=== PATIENT | female | born 1995 | race Caucasian/White ===

== ENCOUNTER 2017-05-15 09:53 | Emergency (ER) | payer OTHER, MEDICAID, SELFPAY ==
[2017-05-15 09:54] VITALS: BP 143/123; PULSE 136; RESP 18; TEMP 38.5; O2SAT 92; BMI 40.1
--- NOTE | 2017-05-15 10:24 | ED.DCSUM_ITS ---
- ER Visit Summary Date of Service: 05/15/17 Chief Complaint: Sore throat and fever History of Present Illness: The patient is a 22 F past medical history of hypertension but is not taking her medications for the last several weeks. Patient states she has had sore throat, fever and cough since yesterday. Denies diarrhea has had a little vomiting. No dysuria. Is able to swallow. Denies drooling. No severe headache or neck pain. Mild nonproductive cough. Physical Examination: Young female no acute distress. Vital signs stable blood pressure 143 or 123 again she is not compliant with her blood pressure meds which I warned her against. Fever 101.3 heart rate 136. Pulse ox 90% on room air no signs of hypoxia. HEENT exam TMs normal. Posterior pharynx erythematous. No exudate nor any peritonsillar abscess. Able to swallow no drooling. Neck nontender no meningismus. No lymphadenopathy. No tracheal tenderness. Lungs dry cough no rales rhonchi or wheezing. Heart tachycardic no murmur. Abdomen obese but soft. Moving all 4 extremities. Skin unremarkable. Back unremarkable. Neurologic exam normal. Test Results: Chest x-ray shows recent left prior to this being done. Emergency Department Course and Treatment: Patient treated with Tylenol and we obtained a rapid strep test and chest x-ray. Treatment Plan: Patient walked out of the ER shortly after arrival. Point of the nurses family states she is bipolar and been off her medications. She left prior to evaluation being completed or ever testing being done. Disposition: Discharge Impression: Viral syndrome with fever Left prior to being discharged or evaluation being completed Medical noncompliance of both her blood pressure and bipolar medications. This note was generated with [employer] dictation software. It may contain incorrect words, spelling, and punctuation that were not noted in review of the chart prior to signing ED Disposition - Plan for ED Patient: Disposition: Home or Assisted Living Chief Complaint: Sore Throat Referrals: Alejandra Waite MD [Primary Care Provider] -
--- NOTE | 2017-05-15 10:36 | ED.RN ---
1027-This RN into room to medicate patient as ordered. Patient very agitated and walked out of room yelling I am not staying here, I am going to [place]! Proceeded to walk out of department with brisk and steady gait in no distress. Parents stated She is bipolar. Comforted parents and let them know they can bring her back for treatment at any time.
--- NOTE | 2017-05-15 10:39 | ED.RN ---
1015-Patient states I am supposed to be on meds but have been off them x 2-3 weeks.
== END 2017-05-15 10:30 | disposition home or self-care (01) ==
LOC: ED 10:31
PROVIDERS: Emergency Provider Emergency Medicine; Family Provider Internal Medicine; PCP Internal Medicine
DX: B34.9 Viral infection, unspecified (principal); R50.9 Fever, unspecified; I10 Essential (primary) hypertension; Z91.19 Patient's noncompliance with other medical treatment and regimen; Z72.0 Tobacco use
CPT/HCPCS: 99281

== ENCOUNTER 2017-06-03 01:00 | Emergency (ER) | payer OTHER, MEDICAID, SELFPAY ==
[2017-06-03 01:02] VITALS: BP 177/129; PULSE 93; RESP 18; TEMP 37.1; O2SAT 98; BMI 35.4
--- NOTE | 2017-06-03 01:54 | ED.VISSUMM ---
- ER Visit Summary Date of Service: 06/03/17 Chief Complaint: Dental pain History of Present Illness: The patient is a 22 F presenting with dental pain. This has been ongoing since yesterday. She has an appointment tomorrow to have her tooth pulled. She has been taking ibuprofen, Tylenol, naproxen at home. She denies fever or swelling. Denies other complaints. Physical Examination: Vitals are stable. Patient is afebrile. Alert no acute distress. HEENT exam is left lower molar tenderness, no surrounding fluctuance, no sublingual edema Neck is supple. Lungs are clear and equal bilaterally. Heart is regular rate and rhythm. Skin is warm and dry. Remainder of exam is unremarkable. Emergency Department Course and Treatment: Patient was given OxyIR ?1. She has an appointment tomorrow morning to have her tooth pulled. There is no sign of infection on exam. She will follow-up at scheduled dental appointment tomorrow. Blood pressure is elevated. Repeat BP is improved. She is advised to take her BP med this morning and follow up with her PCP for blood pressure recheck. Advised return ED if worsening complaints. Disposition: Discharge home Impression: Odontalgia This note was generated with [employer] dictation software. It may contain incorrect words, spelling, and punctuation that were not noted in review of the chart prior to signing ED Disposition - Plan for ED Patient: Chief Complaint: Dental Instructions: ED Tooth Pain Referrals: Alejandra Waite MD [Primary Care Provider] -
--- NOTE | 2017-06-03 01:56 | ED.DEP ---
ED Disposition - Plan for ED Patient: Chief Complaint: Dental Instructions: ED Tooth Pain Referrals: Alejandra Waite MD [Primary Care Provider] -
[2017-06-03] MEDS: oxyCODONE 5 MG Tablet PO (02:16)
[2017-06-03 02:34] VITALS: BP 156/117
[2017-06-03] MEDS: Ondansetron ODT 4 MG Tablet PO (03:00)
[2017-06-03 03:21] VITALS: BP 131/96; PULSE 99; RESP 30; O2SAT 98
== END 2017-06-03 03:22 | disposition home or self-care (01) ==
LOC: ED 01:30
PROVIDERS: Emergency Provider Emergency Medicine; Family Provider Internal Medicine; PCP Internal Medicine
DX: K08.89 Other specified disorders of teeth and supporting structures (principal); I10 Essential (primary) hypertension; Z72.0 Tobacco use
CPT/HCPCS: 99282

== ENCOUNTER 2017-08-02 01:26 | Emergency (ER) | payer OTHER, MEDICAID, SELFPAY ==
[2017-08-02 01:21] VITALS: BP 156/94; PULSE 141; RESP 22; TEMP 36.6; O2SAT 97; BMI 42.4
--- NOTE | 2017-08-02 01:24 | NURSING ---
PT WRITHING, RESTLESS C/O PAIN IN RLE FOR 2 DAYS, WORSENING FOR THE LAST 12 HOURS. STATES NO INJURY. PT TOOK BENZTORPINE AT HOME, BUT STATES SHE DOESN'T KNOW WHY SHE HAS IT OR WHO PRESCRIBED IT.
--- NOTE | 2017-08-02 02:58 | ED.DCSUM_ITS ---
- ER Visit Summary Date of Service: 08/02/17 Chief Complaint: Right lower extremity pain History of Present Illness: The patient is a 22 F 3 of hypertension and bipolar disorder. Patient states that she has right lower extremity pain today after walking. She denies any falls or trauma. She denies any coolness or loss of sensation. She has never had any leg surgery. She denies any recent travel, hospitalization or immobilization. She has never had a DVT or PE. Physical Examination: Well-appearing young female. Vital signs are stable afebrile. She is tachycardic but she is very anxious. H EENT exam unremarkable. Neck nontender. Lungs clear to auscultation bilaterally. Heart tachycardic rate about 110 on my exam. No murmur. Abdomen soft nontender nondistended no giving or masses. Normal bowel sounds no peritoneal signs. No pulsatile mass. She is moving all 4 extremities. Neurovascular intact. Specifically right hip, knee and ankle are nontender nonswollen. She complains of pain in her right lower leg but is not swollen or red. Legs are equal size as are her calves. She has equal symmetrical DP pulses. Has normal cap refill. The right foot is neurovascularly intact she is able to wiggle her toes. And has normal touch sensation. Test Results: None Emergency Department Course and Treatment: Patient be treated with Motrin and discharged home. I will have the nurses get a Doppler DP pulse in her right foot. Clinically I can palpate one. Later this is not a vascular event. This is not a DVT. There is been no trauma nor bony deformity. There is no signs of infection. There is no signs of compartment syndrome. Treatment Plan: Tylenol and Motrin for pain. Disposition: Discharge Impression: Right lower extremity pain secondary to musculoskeletal etiology. This note was generated with [employer] dictation software. It may contain incorrect words, spelling, and punctuation that were not noted in review of the chart prior to signing ED Disposition - Plan for ED Patient: Chief Complaint: Lower Extremity Injury Referrals: Alejandra Waite MD [Primary Care Provider] -
--- NOTE | 2017-08-02 02:58 | ED.DEP ---
ED Disposition - Plan for ED Patient: Disposition: Home or Assisted Living Chief Complaint: Lower Extremity Injury Instructions: ED Strain Muscle Ext Referrals: Alejandra Waite MD [Primary Care Provider] - 3-5 Days if not improving Additional Instructions: Tylenol and Motrin for pain. Ice to the lower leg for decreasing inflammation and pain. Hot shower warm bath to relax the muscles.
[2017-08-02] MEDS: Ibuprofen 400 MG Tablet 800 MG PO (03:04)
--- NOTE | 2017-08-02 03:05 | ED.RN ---
STRONG PEDAL PULSES FOUND WITH DOPPLER, PT TOLERATED WELL.
--- NOTE | 2017-08-02 03:06 | NURSING ---
GOOD PEDAL PULSES FOUND IN EXTREMITY, CONFIRMED BY DOPPLER.
[2017-08-02 03:16] VITALS: RESP 20
--- NOTE | 2017-08-02 03:17 | NURSING ---
pt called lindy who was getting a taxi to come and get her. security keeping an on the pt.
== END 2017-08-02 03:16 | disposition home or self-care (01) ==
PROVIDERS: Emergency Provider Emergency Medicine; Family Provider Internal Medicine; PCP Internal Medicine
DX: M79.604 Pain in right leg (principal); I10 Essential (primary) hypertension; Z72.0 Tobacco use
CPT/HCPCS: 99284

== ENCOUNTER 2017-08-03 02:53 | Emergency (ER) | payer OTHER, MEDICAID, SELFPAY ==
[2017-08-03 02:55] VITALS: BP 113/83; PULSE 131; RESP 17; TEMP 36.8; O2SAT 95; BMI 42.0
--- NOTE | 2017-08-03 03:14 | RAD_ITS ---
STUDY: X-RAY - RIGHT ANKLE REASON FOR EXAM: Female, 22 years old. Pain TECHNIQUE: 3 view(s) of the ankle. COMPARISON: None. FINDINGS: The tibia and fibula are intact. The talus and calcaneus are intact. There are NO fractures. There is slight widening of the medial aspect of the ankle mortise with medial soft tissue swelling. Deltoid ligament injury not excluded. RAD/Ankle min 3 Views IMPRESSION: There are NO fractures. There is slight widening of the medial aspect of the ankle mortise with medial soft tissue swelling. Deltoid ligament injury not excluded Electronically Signed: Isidoro Wells MD at 3:47 EDT , Service support ,
--- NOTE | 2017-08-03 03:15 | ED.VISSUMM ---
- ER Visit Summary Date of Service: 08/03/17 Chief Complaint: [] Right ankle pain History of Present Illness: The patient is a 22 F [] history of untreated bipolar disease and hypertension presenting with right lower extremity pain for the past several days. She was seen yesterday in this emergency department and treated clinically with NSAIDs. No diagnostic or laboratory testing was obtained. Patient reportedly has had no trauma or increase in physical activity. No changes in the history from the previous evaluation. Reports mild improvement with NSAIDs for 1-2 hours. Physical Examination: [] Afebrile, vital signs heart rate of 131 with remainder of the vital signs unremarkable. Morbidly obese 22-year-old female exhibiting some bizarre psychiatric involuntary movements. Patient is in no acute distress. Cardiovascular exam is regular rate and rhythm. Lungs are clear to auscultation. Examination of the lower extremity on the right reveals tenderness palpation with minor touch of the skin. No gross deformity or swelling. There is a symmetric appearing lower extremities from the knees down. No rash. Test Results: [] Right ankle x-rays: Negative per my interpretation. Emergency Department Course and Treatment: [] Patient given 800 mg orally of ibuprofen. X-rays negative. Patient provided Aircast and crutches with instructions on use. Patient was given a prescription for ibuprofen. Encouraged ice and rest. Follow-up with orthopedic surgeon. Treatment Plan: [] As above. Disposition: [] Discharge, stable. Impression: [] Right ankle sprain This note was generated with [employer] dictation software. It may contain incorrect words, spelling, and punctuation that were not noted in review of the chart prior to signing ED Disposition - Plan for ED Patient: Chief Complaint: Lower Extremity Injury Referrals: Alejandra Waite MD [Primary Care Provider] -
[2017-08-03] MEDS: Ibuprofen 400 MG Tablet 800 MG PO (03:26)
--- NOTE | 2017-08-03 04:06 | ED.DEP ---
ED Disposition - Plan for ED Patient: Disposition: Home or Assisted Living Chief Complaint: Lower Extremity Injury Instructions: ED Sprain Ankle W X Ray Prescriptions: Ibuprofen 800 mg PO TID PRN PRN #30 tab PRN Reason: Pain Referrals: Alejandra Waite MD [Primary Care Provider] -
[2017-08-03 04:40] VITALS: PULSE 127; RESP 18; O2SAT 100
== END 2017-08-03 04:41 | disposition home or self-care (01) ==
PROVIDERS: Emergency Provider Emergency Medicine; Family Provider Internal Medicine; PCP Internal Medicine
DX: S93.401A Sprain of unspecified ligament of right ankle, initial encounter (principal); X58.XXXA Exposure to other specified factors, initial encounter; Y93.9 Activity, unspecified; Y92.9 Unspecified place or not applicable; Y99.9 Unspecified external cause status; I10 Essential (primary) hypertension
CPT/HCPCS: 73610; 99285

== ENCOUNTER 2017-08-27 11:55 | Emergency (ER) | payer OTHER, MEDICAID, SELFPAY ==
[2017-08-27] VITALS (7 sets, daily range): BP systolic 130–150; BP diastolic 88–113; PULSE 64–92; RESP 14–18; TEMP 37; O2SAT 97–98; BMI 41.1
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
[2017-08-27] MEDS: LORazepam 1 MG Tablet PO (12:10)
[2017-08-27 12:37] LABS: Absolute Lymphocyte Count 3.38 X10^3/ul (0.83-4.51); Absolute Neutrophil Count 9.2 X10^3/uL (2.0-7.7); Basophil# 0.03 X10^3/uL; Basophil% 0.2 % (0-1); Eosinophil# 0.07 X10^3/uL; Eosinophils% 0.5 % (0-5); Hematocrit 38.1 % (37-47); Hemoglobin 12.2 g/dl (12.0-15.0); Lymphocyte # 3.38 X10^3/ul (4.0); Lymphocyte % 23.7 % (19-41); Mean Corpuscular Hgb 28.6 pg (27.0-32.0); Mean Corpuscular Volume 89.2 fL (81-99); Mean Platelet Vol. 10.4 fl (6.2-12.0); Monocyte# 1.51 X10^3/uL; Monocyte% 10.6 % (0-10); Neutrophil # 9.23 X10^3/uL (2.7-7.7); Neutrophil % 64.6 % (47-70); Platelet Count 333 K/mm3 (150-450); RBC Distribution Width CV 13.7 % (11.6-14.6); RBC Distribution Width SD 44.6 fl (35.1-43.9); Red Blood Count 4.27 M/mm3 (4.2-5.4); White Blood Count 14.3 K/mm3 (4.4-11.0)
[2017-08-27 12:39] LABS: Differential Indicated SCAN CRITERIA MET; POSITIVE COUNT NO; POSITIVE DIFFERENTIAL YES; POSITIVE MORPHOLOGY NO
[2017-08-27 12:41] LABS: Anion Gap 8 (5-15); BUN 15 mg/dL (7-18); BUN/Creat Ratio 18.3 RATIO (10-20); Calcium,Total 8.3 mg/dL (8.5-10.1); Chloride 106 mmol/L (98-107); Creatinine, Serum 0.82 mg/dL (0.55-1.02); EST Glomerular Filtration Rate 93 mL/min (>60); Est Glom Filt Rate - Afr Amer 113 mL/min (>60); Estimated Creatinine Clearance 89.77 ml/min; Glucose 113 mg/dL (74-106); Potassium 3.3 mmol/L (3.5-5.1); Sodium Level 142 mmol/L (136-145)
[2017-08-27 12:47] LABS: Amphetamine Urine VISTA NEGATIVE (<1000 ng/mL); Barbiturate Urine VISTA NEGATIVE (< 200 ng/mL); Benzodiazepine Urine VISTA NEGATIVE (< 200 ng/mL); Cocaine Urine VISTA NEGATIVE (< 300 ng/mL); Ecstacy Urine VISTA NEGATIVE (< 500 ng/mL); Methadone Urine VISTA NEGATIVE (< 300 ng/mL); PCP Urine VISTA NEGATIVE (< 25 ng/mL); Pregnancy, Serum, hCG Quali. NEGATIVE Negative (0-9 Nonpreg); THC Urine VISTA POSITIVE (< 50 ng/mL); Vista UDS pH Range 6
--- NOTE | 2017-08-27 12:58 | ED.RN ---
CRISIS IS AWARE PT NEEDS TO BE EVALUATED
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
--- NOTE | 2017-08-27 17:53 | CASEMGMT ---
Social Work Note Introduced self and role to pt. Pt placed phone down, maintains eye contact and participates appropriately in conversation. Appears to be in no distress as evidenced by smiling at SW throughout conversation and denying discomfort. Pt denies intent/plan to harm self in the ED. Identifies mother as support and claims she will be returning with food. Offer support and pt denies further needs. Inform that crisis has been notified of location change, and pt expresses understanding. Harriett Marsh, TAX AGENT, HELP DESK INTERNSHIP
--- NOTE | 2017-08-27 18:06 | CASEMGMT ---
Social Work Note Pt's mother present in room with pt. RN, Davon, notified. Harriett Marsh, SALES DEVELOPMENT DIRECTOR, GREEN ENERGY MARKETING ANALYST
[2017-08-28 00:21] VITALS: BP 144/88; PULSE 71; RESP 18; O2SAT 96
--- NOTE | 2017-08-28 00:23 | ED.RN ---
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
[2017-08-28 00:58] VITALS: BP 144/78; PULSE 71; RESP 16; TEMP 37; O2SAT 96
[2017-08-28 12:10] LABS: Pathologist Review Reviewed
== END 2017-08-28 01:01 ==
PROVIDERS: Emergency Provider Emergency Medicine; Family Provider Internal Medicine; PCP Internal Medicine
DX: R45.851 Suicidal ideations (principal); F31.9 Bipolar disorder, unspecified; F41.9 Anxiety disorder, unspecified
CPT/HCPCS: 36415; 80048; 80307; 80320; 84703; 85025; 99284; G0480

== ENCOUNTER 2017-10-05 05:41 | Emergency (ER) | payer OTHER, MEDICAID, SELFPAY ==
[2017-10-05 05:42] VITALS: BP 144/81; PULSE 122; RESP 18; TEMP 36.9; O2SAT 96; BMI 38.2
[2017-10-05 05:45] VITALS: BP 128/72
--- NOTE | 2017-10-05 05:56 | ED.VISSUMM ---
- ER Visit Summary Date of Service: 10/05/17 Chief Complaint: [Discomfort and drainage right eye] History of Present Illness: The patient is a 22 F [presents to the emergency department with discomfort of the right eye that is mild. Patient states she has had it for about 3 days. Patient's had drainage from the right eye. She denies any fever. Patient states that she had a mild cough that developed yesterday and lost her voice for a short time. Patient denies any fevers. She denies any trauma to the right eye.] Physical Examination: HEENT-PERRLA, EOMI. Cranial nerves II through XII grossly intact. TMs clear. Mucous membranes moist. No adenopathy. Patient has faint conjunctival erythema of the right eye with some purulent drainage noted. Cardiovascular-regular rate and rhythm without murmur or ectopy Lungs-clear to auscultation, chest wall stable without crepitus or subcu emphysema Abdomen-normoactive bowel sounds, soft, nontender, no rebound or rigidity, no peritoneal signs. Extremities-intact ?4, normal range of motion, normal pulses, atraumatic] Test Results: [None indicated] Emergency Department Course and Treatment: [Patient will be started on gentamicin ophthalmic drops.] Treatment Plan: [Patient to follow-up with Dr. Jesse Dickson who is on for ophthalmology within the next 3-5 days.] Disposition: [Discharged to home in stable condition] Impression: [Conjunctivitis right eye] This note was generated with [employer] dictation software. It may contain incorrect words, spelling, and punctuation that were not noted in review of the chart prior to signing ED Disposition - Plan for ED Patient: Chief Complaint: Eye Problem Referrals: Care Physician,No Primary [Primary Care Provider] -
--- NOTE | 2017-10-05 05:58 | ED.DEP ---
ED Disposition - Plan for ED Patient: Chief Complaint: Eye Problem Instructions: ED Conjunctivitis Bacterial Referrals: Care Physician,No Primary [Primary Care Provider] - Jesse Dickson MD [STAFF PHYSICIAN] - 3-5 Days
[2017-10-05] MEDS: Gentamicin Sulfate 1 OPTH.BTL 2 DRP RIGHT EYE (06:14)
[2017-10-05 06:17] VITALS: RESP 16
== END 2017-10-05 06:18 | disposition home or self-care (01) ==
LOC: ED 06:09
PROVIDERS: Emergency Provider Emergency Medicine
DX: H10.9 Unspecified conjunctivitis (principal); R05 Cough; I10 Essential (primary) hypertension; Z72.0 Tobacco use
CPT/HCPCS: 99283

== ENCOUNTER 2017-12-25 10:25 | Emergency (ER) | payer OTHER, MEDICAID, SELFPAY ==
[2017-12-25] VITALS (8 sets, daily range): BP systolic 118–136; BP diastolic 70–102; PULSE 85–103; RESP 14–16; TEMP 36.9; O2SAT 97–99; BMI 36.9
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
[2017-12-25 11:27] LABS: Absolute Lymphocyte Count 2.79 X10^3/ul (0.83-4.51); Absolute Neutrophil Count 5.1 X10^3/uL (2.0-7.7); Basophil# 0.08 X10^3/uL; Basophil% 0.8 % (0-1); Eosinophil# 0.69 X10^3/uL; Eosinophils% 7.3 % (0-5); Hematocrit 38.7 % (37-47); Hemoglobin 12.9 g/dl (12.0-15.0); Lymphocyte # 2.79 X10^3/ul (4.0); Lymphocyte % 29.6 % (19-41); Mean Corp Hgb Conc 33.3 g/gl (32-36); Mean Corpuscular Hgb 29.8 pg (27.0-32.0); Mean Corpuscular Volume 89.4 fL (81-99); Mean Platelet Vol. 9.8 fl (6.2-12.0); Monocyte# 0.74 X10^3/uL; Monocyte% 7.8 % (0-10); Neutrophil # 5.12 X10^3/uL (2.7-7.7); Neutrophil % 54.3 % (47-70); Platelet Count 317 K/mm3 (150-450); RBC Distribution Width CV 13.3 % (11.6-14.6); Red Blood Count 4.33 M/mm3 (4.2-5.4); White Blood Count 9.4 K/mm3 (4.4-11.0)
[2017-12-25 11:28] LABS: POSITIVE COUNT NO; POSITIVE DIFFERENTIAL NO; POSITIVE MORPHOLOGY NO
[2017-12-25 11:37] LABS: Anion Gap 7 (5-15); BUN 11 mg/dL (7-18); BUN/Creat Ratio 12.7 RATIO (10-20); Calcium,Total 8.5 mg/dL (8.5-10.1); Chloride 106 mmol/L (98-107); Creatinine, Serum 0.86 mg/dL (0.55-1.02); EST Glomerular Filtration Rate 87 mL/min (>60); Est Glom Filt Rate - Afr Amer 106 mL/min (>60); Glucose 86 mg/dL (74-106); Potassium 3.7 mmol/L (3.5-5.1); Sodium Level 142 mmol/L (136-145)
[2017-12-25 11:39] LABS: Amphetamine Urine VISTA POSITIVE (<1000 ng/mL); Barbiturate Urine VISTA NEGATIVE (< 200 ng/mL); Benzodiazepine Urine VISTA NEGATIVE (< 200 ng/mL); Cocaine Urine VISTA NEGATIVE (< 300 ng/mL); Ecstacy Urine VISTA NEGATIVE (< 500 ng/mL); Methadone Urine VISTA NEGATIVE (< 300 ng/mL); PCP Urine VISTA NEGATIVE (< 25 ng/mL); THC Urine VISTA POSITIVE (< 50 ng/mL); Vista UDS pH Range 5
[2017-12-25 11:43] LABS: Pregnancy, Serum, hCG Quali. NEGATIVE Negative (0-9 Nonpreg)
[2017-12-25 11:56] LABS: Alcohol, Blood (Medical)-Serum < 3.0 mg/dL
--- NOTE | 2017-12-25 12:21 | PCA ---
PT [facility]AR[facility]SEL[facility] NOTIFIED
--- NOTE | 2017-12-25 13:57 | NURSING ---
HAYLEE, CRISIS, HERE
--- NOTE | 2017-12-25 15:38 | ED.RN ---
SITTER AT BEDSIDE, PT REQUESTS TO GO TO THE BATHROOM, SITTER WALKS PT TO BATHROOM AND PT WALKS THE OTHER WAY AND RUNS OUT THE ED DOORS. SECURITY AND HRO NOTIFIED. PT BROUGHT BACK INSIDE WITH HRO ABOUT 5 MINUTES LATER. PT VERY TEARFUL AND FRUSTRATED. PT AGREES TO STAY AND NOT BE RESTRAINED. PINK SLIPPED RE-EXPLAINED. PT BACK IN ROOM AND COOPERATIVE. MEAL TRAY ORDERED AND BROUGHT TO BEDSIDE. SITTER REMAINS AT BEDSIDE.
== END 2017-12-25 19:53 ==
LOC: ED 10:52
PROVIDERS: Emergency Provider Emergency Medicine
DX: T14.91XA Suicide attempt, initial encounter (principal); Y93.9 Activity, unspecified; Y92.410 Unspecified street and highway as the place of occurrence of the external cause; Y99.9 Unspecified external cause status; F15.10 Other stimulant abuse, uncomplicated; Z91.14 Patient's other noncompliance with medication regimen; F32.9 Major depressive disorder, single episode, unspecified; F41.9 Anxiety disorder, unspecified
CPT/HCPCS: 80048; 80307; 80320; 84703; 85025; 99284; A4216; G0480

== ENCOUNTER → 2018-07-12 13:57 | Outpatient (CLI) | payer MEDICAID, SELFPAY ==
[2018-07-12 13:45] VITALS: BMI 40.1
[2018-07-12 15:37] LABS: HIV - WCH Non-Reactive (Nonreactive)
[2018-07-12 20:29] LABS: Chlamydia Trachomatis by PCR Negative (Negative); Neisserai gonorrhoeae by PCR Negative (Negative); Probe Check PASS; Sample Adequacy Control PASS; Specimen Processing Control PASS
[2018-07-15 10:25] LABS: HPV Reflexed? NOT INDICATED
[2018-07-16 03:37] LABS: Rapid Plasmin Reagin (RPR) NONREACTIVE (NONREACTIVE)
[2018-07-17 03:07] LABS: HCV Quant. RNA PCR HCV Not Detected IU/mL (.)
== END ==
PROVIDERS: Family Provider Internal Medicine; PCP Internal Medicine; Referring Provider Nurse Practitioner Women's Health; Visit Provider Nurse Practitioner Women's Health
DX: Z11.3 Encounter for screening for infections with a predominantly sexual mode of transmission (principal); Z12.4 Encounter for screening for malignant neoplasm of cervix
CPT/HCPCS: 36415; 86592; 86695; 86696; 86703; 87340; 87491; 87522; 87591; 87624; 88175; G0145

== ENCOUNTER → 2018-09-13 | Outpatient (CLI) | payer MEDICAID, SELFPAY ==
[2018-09-13 14:31] VITALS: BMI 43.7
[2018-09-13 18:48] LABS: Chlamydia Trachomatis by PCR Negative (Negative); Neisserai gonorrhoeae by PCR Negative (Negative); Probe Check PASS; Sample Adequacy Control PASS; Specimen Processing Control PASS
== END | disposition home or self-care (01) ==
LOC: LABSPEC 16:19
PROVIDERS: Family Provider Internal Medicine; PCP Internal Medicine; Referring Provider Nurse Practitioner Women's Health; Visit Provider Nurse Practitioner Women's Health
DX: Z11.3 Encounter for screening for infections with a predominantly sexual mode of transmission (principal)
CPT/HCPCS: 87491; 87591

== ENCOUNTER → 2018-09-29 | Outpatient (CLI) | payer MEDICAID, SELFPAY ==
[2018-09-29 14:29] VITALS: BMI 43.7
[2018-09-29 22:21] LABS: Chlamydia Trachomatis by PCR Negative (Negative); Neisserai gonorrhoeae by PCR Negative (Negative); Probe Check PASS; Sample Adequacy Control PASS; Specimen Processing Control PASS
== END | disposition home or self-care (01) ==
LOC: LABSPEC 17:01
PROVIDERS: Family Provider Internal Medicine; PCP Internal Medicine; Referring Provider Nurse Practitioner Women's Health; Visit Provider Nurse Practitioner Women's Health
DX: N89.8 Other specified noninflammatory disorders of vagina (principal); Z11.3 Encounter for screening for infections with a predominantly sexual mode of transmission
CPT/HCPCS: 87070; 87205; 87491; 87591

== ENCOUNTER → 2019-11-29 09:54 | Outpatient (CLI) | payer MEDICAID, SELFPAY ==
[2019-11-29 09:27] VITALS: BMI 43.7
[2019-11-29 11:25] LABS: HIV - WCH Non-Reactive (Nonreactive)
[2019-12-01 02:16] LABS: Rapid Plasmin Reagin (RPR) NONREACTIVE (NONREACTIVE)
[2019-12-01 03:06] LABS: HCV Quant. RNA PCR HCV Not Detected IU/mL (.)
[2019-12-02 03:07] LABS: Chlamydia By Nucleic Acid AMP Negative (Negative)
[2019-12-02 13:43] LABS: Gonococcus By Nucleic Acid AMP Negative (Negative)
== END ==
PROVIDERS: PCP Internal Medicine; Referring Provider Nurse Practitioner Women's Health; Visit Provider Nurse Practitioner Women's Health
DX: Z11.3 Encounter for screening for infections with a predominantly sexual mode of transmission (principal)
CPT/HCPCS: 36415; 86592; 86703; 87491; 87522; 87591

== ENCOUNTER 2019-12-29 11:34 | Emergency (ER) | payer MEDICAID, SELFPAY ==
[2019-11-29 09:27] VITALS: BMI 43.7
[2019-12-29 11:35] VITALS: BP 148/105; PULSE 106; RESP 16; TEMP 36.3; O2SAT 98; BMI 41.7
--- NOTE | 2019-12-29 11:50 | RAD_ITS ---
STUDY: X-RAY - LEFT HAND REASON FOR EXAM: Female, 24 years old. Left hand pain, numbness x 3 days -- NKI TECHNIQUE: 3 view(s) of the hand. COMPARISON: None. FINDINGS: Normal radiocarpal articulation. Normal distal radioulnar joint. Normal visualized carpal bones. Normal carpal articulations Normal carpometacarpal articulation of the thumb. Normal second through fifth carpometacarpal joints. Normal metacarpi. Normal metacarpophalangeal joint of the thumb. Normal interphalangeal joint of the thumb. Normal proximal and distal phalanges of the thumb. Normal metacarpophalangeal joints of the second through fifth fingers. Normal proximal and distal interphalangeal joints of the second through fifth fingers. Normal phalanges of the second through fifth fingers. The soft tissue structures are unremarkable. RAD/Hand Min 3 Views IMPRESSION: Normal x-ray examination of the hand. Electronically Signed: Timothy Mcneil, at 12:20 EDT , Service support ,
--- NOTE | 2019-12-29 12:33 | ED.VISSUMM ---
- ER Visit Summary Date of Service: 12/29/19 Chief Complaint: Hand numbness History of Present Illness: The patient is a 24 F presenting with bilateral hand numbness, left greater than right. She complains of painful tingling sensation in her left hand and right-sided fingertips. She denies injury. She states this has been ongoing for the past 3 days. She denies any repetitive motion hand motions other than texting. She denies fever. Denies other complaints. She states she did fall a couple days ago but is unsure if she injured her hand. Physical Examination: Vitals are stable. Patient is afebrile. Alert no acute distress. HEENT exam is unremarkable. Neck is nontender Lungs are clear and equal bilaterally. Heart is regular rate and rhythm. Abdomen is soft nontender nondistended. Extremities are unremarkable. Skin is warm and dry. No focal neurologic deficit. Subjective paresthesias left palm and right second through fourth digit. Normal strength. Normal cap refill and pulses. Remainder of exam is unremarkable. Emergency Department Course and Treatment: Left hand x-ray shows no acute process. Chemistry panel shows potassium 3.1. She was given potassium oral replacement. She was given a Velcro wrist splint. Advised of concern of possible carpal tunnel syndrome. Advised to use NSAIDS for pain. She was advised to follow-up with primary care physician. Advised return to ED for worsening complaints. Disposition: Discharge home Impression: Left hand paresthesia, suspect carpal tunnel This note was generated with [employer] dictation software. It may contain incorrect words, spelling, and punctuation that were not noted in review of the chart prior to signing ED Disposition - Plan for ED Patient: Instructions: ED Carpal Tunnel Referrals: Clayton Ortega MD [NON-STAFF] -
[2019-12-29 13:21] LABS: Anion Gap 8 (5-15); BUN 7 mg/dL (7-18); BUN/Creat Ratio 8.6 RATIO (10-20); Calcium,Total 8.9 mg/dL (8.5-10.1); Chloride 103 mmol/L (98-107); Creatinine, Serum 0.82 mg/dL (0.55-1.02); EST Glomerular Filtration Rate 91 mL/min (>60); Est Glom Filt Rate - Afr Amer 111 mL/min (>60); Estimated Creatinine Clearance 88.27 ml/min; Glucose 92 mg/dL (74-106); Potassium 3.1 mmol/L (3.5-5.1); Sodium Level 138 mmol/L (136-145)
--- NOTE | 2019-12-29 13:35 | ED.DEP ---
ED Disposition - Plan for ED Patient: Instructions: ED Carpal Tunnel Referrals: Clayton Ortega MD [NON-STAFF] -
== END 2019-12-29 14:30 | disposition home or self-care (01) ==
LOC: ED 12:25
PROVIDERS: Emergency Provider Emergency Medicine; PCP Internal Medicine
DX: R20.2 Paresthesia of skin (principal)
CPT/HCPCS: 73130; 80048; 99282

== ENCOUNTER 2020-01-14 18:47 | Emergency (ER) | payer MEDICAID, SELFPAY ==
[2020-01-14 18:48] VITALS: PULSE 81; RESP 17; TEMP 36; O2SAT 98; BMI 39.4
--- NOTE | 2020-01-14 19:10 | CT_ITS ---
STUDY: CT ABDOMEN AND PELVIS WITHOUT CONTRAST REASON FOR EXAM: Female, 24 years old. RLQ PAIN/N/V X COUPLE DAYS. Prior cholecystectomy RADIATION DOSAGE (If Supplied By Facility): CTDIvol = ( 16.88 ) mGy, DLP = ( 1241.10 ) mGycm TECHNIQUE: Transaxial images were obtained from the dome of the diaphragm to the symphysis pubis without oral contrast, and without intravenous contrast. Sagittal and coronal images were reconstructed. Individualized dose optimization techniques were used for this CT. COMPARISON: 04/09/2015. FINDINGS: Lung bases are clear. Heart size is normal. Diffuse fatty infiltration of the liver. There is a 1.1 cm hyperdense or enhancing lesion in the posterior segment of the liver, possible small vascular malformation. Hepatic adenoma or focal nodular hyperplasia are additional considerations. The liver is otherwise unremarkable. The gallbladder is nonvisualized. The spleen and pancreas are unremarkable. The adrenal glands are normal. The kidneys are unremarkable. No stones or hydronephrosis. The aorta is normal in caliber. There is no free fluid, free air or organized collection. No bowel obstruction or inflammatory change. Normal abdominal wall. Normal osseous structures. CT/Abdomen/Pelvis W IV Cont ONLY IMPRESSION: 1. No acute findings. 2. Hepatic steatosis. 3. Hepatic lesion in the posterior segment, possible small vascular malformation. Electronically Signed: Jolynn Yarbrough MD at 20:39 EDT Tel , Service support ,
--- NOTE | 2020-01-14 19:12 | ED.DCSUM_ITS ---
History of Present Illness Chief Complaint: Abd Pain Informant: Patient Narrative: 24-year-old female presenting with lower abdominal pain. She states this pain started 3 days ago and has progressively worsening. She has more nausea and vomiting than she usually does but she states that she does intermittently have vomiting episodes which sound like posttussive emesis from smoking cigarettes. She denies urinary or vaginal complaints. No history of kidney stones. Patient states she has had a cholecystectomy. She has a past medical history of hypertension. She states she is had hot and cold flashes but no fevers or chills. She only patient complains of left hand tingling in the palmar surface as well as pain in the volar wrist. - Past Medical History (1) Anxiety Status: Chronic (2) Hypertension Status: Chronic Past Medical History - Allergies and Home Meds Allergies/Adverse Reactions: Allergies amoxicillin [Amoxicillin] Allergy (Verified 01/14/20 18:47) Hives propranolol HCl [From Inderal [place]] Allergy (Verified 01/14/20 18:47) Hives Primary Care Physician: Alejandra Waite MD [[facility]] - Prior records reviewed: Yes Past Medical History: - - Reviewed in problem list Lives: With Family Smoking Status: Current every day smoker Alcohol: None Drugs: None Review of Systems General: Reports: Chills, Sweats. Denies: Fever Eyes: Denies: Visual changes - bilaterally, Diplopia ENT: Denies: Rhinorrhea, Sore throat Cardiovascular: Denies: Chest pain, Palpitations Respiratory: Denies: Dyspnea, Cough, Dyspnea on exertion Gastrointestinal: Reports: Abdominal pain, Nausea, Vomiting Musculoskeletal: Denies: Back pain, Extremity Pain Skin: Denies: Rash, Wounds Neurological: Denies: Headache, Weakness, Numbness Physical Exam Vital Signs/Narrative: Vital Signs Temp Pulse Resp Pulse Ox 01/14/20 18:48 96.8 F L 81 17 98 General: Obese, No Acute Distress Head: Normocephalic, Atraumatic Eyes: Perrl, EOMI. Negative for: Scleral icterus ENT: Moist mucous membranes, No rhinorrhea Cardiovascular: Regular rate, Regular rhythm Respiratory: No distress, CTA bilaterally Abdomen: Soft, Nondistended, Tender - Numbness to palpation in the bilateral lower quadrants as well as the right upper quadrant. And does not appear to be peritoneal. Back: Negative for: Nontender, CVA tenderness Extremities: - - Tenderness palpation of the left volar wrist. Positive Tinel sign. Skin: Normal color, No rash. Negative for: Jaundice Neurological: Alert, Oriented x3 Psychological: Normal affect, Normal Mood Diagnostic/Tx/Re-eval Clinical Impression(s) from Imaging Studies Abdomen/Pelvis CT 01/14/20 19:10 IMPRESSION: 1. No acute findings. 2. Hepatic steatosis. 3. Hepatic lesion in the posterior segment, possible small vascular malformation. Electronically Signed: Jolynn Yarbrough MD at 20:39 EDT Tel , Service support , Laboratory Data 01/14/20 01/14/20 01/14/20 19:20 19:20 19:20 WBC 5.9 RBC 5.27 Hgb 15.5 H Hct 46.6 MCV 88.4 MCH 29.4 MCHC 33.3 RDW Std Deviation 41.1 RDW Coeff of Anila 12.7 Plt Count 282 MPV 10.6 Immature Gran % (Auto) 0.300 Neut % (Auto) 42.9 L Lymph % (Auto) 43.8 H [place] % (Auto) 9.3 Eos % (Auto) 3.2 Baso % (Auto) 0.5 Absolute Neuts (auto) 2.5 Absolute Lymphs (auto) 2.59 Nucleated RBC % 0 Sodium 139 Potassium 3.2 L Chloride 102 Carbon Dioxide 30.0 Anion Gap 7 BUN 5 L Creatinine 0.94 Estim Creat Clear Calc 77.00 Est GFR (MDRD) Af Amer 94 Est GFR (MDRD) Non-Af 78 BUN/Creatinine Ratio 5.3 L Glucose 118 H Calcium 8.6 Total Bilirubin 0.50 AST 167 H ALT 181 H Alkaline Phosphatase 96 Total Protein 7.2 Albumin 3.1 L Globulin 4.1 Albumin/Globulin Ratio 0.8 L Lipase 160 Serum , Qual NEGATIVE Urine Test 01/14/20 19:25 WBC RBC Hgb Hct MCV MCH MCHC RDW Std Deviation RDW Coeff of Anila Plt Count MPV Immature Gran % (Auto) Neut % (Auto) Lymph % (Auto) [place] % (Auto) Eos % (Auto) Baso % (Auto) Absolute Neuts (auto) Absolute Lymphs (auto) Nucleated RBC % Sodium Potassium Chloride Carbon Dioxide Anion Gap BUN Creatinine Estim Creat Clear Calc Est GFR (MDRD) Af Amer Est GFR (MDRD) Non-Af BUN/Creatinine Ratio Glucose Calcium Total Bilirubin AST ALT Alkaline Phosphatase Total Protein Albumin Globulin Albumin/Globulin Ratio Lipase Serum , Qual Urine Test Cancelled - Medical Decision Making She presents with abdominal pain, nausea, vomiting. She is given feeding, Zofran and IV fluids and felt improved but then did require it again. On reevaluation she is much improved. Her lab work is unremarkable. CT abdomen pelvis shows concern for either vascular malformation versus adenoma however I do not believe these are acute findings. Complaining of lower abdominal pain. Patient also had complaint of left wrist pain and has a positive Tinel sign I will put her in a cock-up wrist splint. She will be discharged home in stable condition. Impression: 1. Nausea/vomiting 2. Abdominal pain female unknown cause 3. Carpal tunnel syndrome left wrist ED Disposition - Plan for ED Patient: Disposition: Home or Assisted Living Instructions: ED Abdominal Pain Unkn Cause Fem, ED PEPTIC ULCER vs GASTRITIS, What Is Carpal Tunnel Syndrome (CTS)? Prescriptions: Famotidine [Pepcid] 20 mg PO BID #14 tab Transmission Status: Pending to [facility] Ondansetron [Zofran Odt] 4 mg PO Q8H PRN PRN #10 tab PRN Reason: Nausea Transmission Status: Pending to [facility] Referrals: Alejandra Waite MD [[facility]] -
[2020-01-14] MEDS: Ondansetron 4 MG/2 ML Vial IV (19:28)
[2020-01-14] MEDS: Morphine 4 MG/ML Syringe IV (19:29)
[2020-01-14] MEDS: 0.9% Normal Saline 1,000 ML 1000 ML IV (19:29)
[2020-01-14 19:31] LABS: Absolute Lymphocyte Count 2.59 X10^3/uL (0.83-4.51); Absolute Neutrophil Count 2.5 X10^3/uL (2.0-7.7); Basophil# 0.03 X10^3/uL; Basophil% 0.5 % (0-1); Eosinophil# 0.19 X10^3/uL; Eosinophils% 3.2 % (0-5); Hematocrit 46.6 % (37-47); Hemoglobin 15.5 g/dL (12.0-15.0); Lymphocyte # 2.59 X10^3/ul (4.0); Lymphocyte % 43.8 % (19-41); Mean Corp Hgb Conc 33.3 g/dL (32-36); Mean Corpuscular Hgb 29.4 pg (27.0-32.0); Mean Corpuscular Volume 88.4 fL (81-99); Mean Platelet Vol. 10.6 fl (6.2-12.0); Monocyte# 0.55 X10^3/uL; Monocyte% 9.3 % (0-10); NRBC Flagged by Analyzer 0 % (0-5); Neutrophil # 2.54 X10^3/uL (2.7-7.7); Neutrophil % 42.9 % (47-70); Platelet Count 282 K/mm3 (150-450); RBC Distribution Width CV 12.7 % (11.6-14.6); RBC Distribution Width SD 41.1 fl (35.1-43.9); Red Blood Count 5.27 M/mm3 (4.2-5.4); White Blood Count 5.9 K/mm3 (4.4-11.0)
[2020-01-14 19:56] LABS: ALB/GLOB Ratio 0.8 RATIO (0.9-2.4); AST(SGOT) 167 U/L (15-37); Alanine Aminotransfer ALT/SGPT 181 U/L (13-56); Albumin, Serum 3.1 g/dL (3.2-5.0); Alkaline Phosphatase 96 U/L (45-117); Anion Gap 7 (5-15); BUN 5 mg/dL (7-18); BUN/Creat Ratio 5.3 RATIO (10-20); Calcium,Total 8.6 mg/dL (8.5-10.1); Chloride 102 mmol/L (98-107); Creatinine, Serum 0.94 mg/dL (0.55-1.02); EST Glomerular Filtration Rate 78 mL/min (>60); Est Glom Filt Rate - Afr Amer 94 mL/min (>60); Globulin 4.1 g/dL (2.2-4.2); Glucose 118 mg/dL (74-106); Lipase 160 U/L (73-393); Potassium 3.2 mmol/L (3.5-5.1); Protein, Total 7.2 g/dL (6.4-8.2); Sodium Level 139 mmol/L (136-145)
[2020-01-14 20:05] LABS: Internal QC Validated? YES +Cl - CLEAR BKGD; Pregnancy, Serum, hCG Quali. NEGATIVE Negative
[2020-01-14] MEDS: proMETHazine 25 MG/ML Syringe 12.5 MG IV (21:01)
[2020-01-14 21:02] VITALS: BP 144/96; PULSE 57; RESP 15; O2SAT 98
[2020-01-14 22:27] VITALS: BP 161/99; PULSE 62; RESP 15; O2SAT 96
[2020-01-14 22:32] VITALS: BP 143/84; PULSE 72; RESP 15; O2SAT 97
== END 2020-01-14 22:37 | disposition home or self-care (01) ==
PROVIDERS: Emergency Provider Student in an Organized Health Care Education/Training Program
DX: R11.2 Nausea with vomiting, unspecified (principal); R10.30 Lower abdominal pain, unspecified; G56.02 Carpal tunnel syndrome, left upper limb; F17.200 Nicotine dependence, unspecified, uncomplicated; I10 Essential (primary) hypertension
CPT/HCPCS: 74177; 80053; 83690; 84703; 85025; 96374; 96375; 99284; J7030; Q9967; A4216; J2405

== ENCOUNTER 2020-03-01 20:28 | Emergency (ER) | payer MEDICAID, SELFPAY ==
[2020-03-01 20:30] VITALS: BP 141/90; PULSE 111; RESP 18; TEMP 36.6; O2SAT 97; BMI 34.2
[2020-03-01] MEDS: LORazepam 1 MG Tablet PO (21:20)
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
== END 2020-03-01 21:58 | disposition home or self-care (01) ==
PROVIDERS: Emergency Provider Emergency Medicine
DX: F41.0 Panic disorder [episodic paroxysmal anxiety] (principal); F15.10 Other stimulant abuse, uncomplicated; I10 Essential (primary) hypertension; F17.200 Nicotine dependence, unspecified, uncomplicated; Z88.0 Allergy status to penicillin; F43.9 Reaction to severe stress, unspecified
CPT/HCPCS: 99284; A4216

== ENCOUNTER 2020-04-15 13:31 | Emergency (ER) | payer MEDICAID, SELFPAY ==
[2020-04-15 13:35] VITALS: BP 164/126; PULSE 108; RESP 24; TEMP 36.6; O2SAT 95; BMI 33.5
--- NOTE | 2020-04-15 13:59 | CT_ITS ---
STUDY: CT BRAIN WITHOUT CONTRAST REASON FOR EXAM: Female, 25 years old. ALTERED MENTAL STATUS, CONFUSION, HX-DRUG ABUSE, BIPOLAR DISORDER, HTN-NOT COMPLIANT WITH MEDS RADIATION DOSAGE (If Supplied By Facility): CTDIvol = ( 44.99 ) mGy, DLP = ( 745.49 ) mGycm TECHNIQUE: Transaxial CT imaging of the brain was performed without administration of intravenous contrast material. Individualized dose optimization techniques were used for this CT. COMPARISON: No relevant priors. FINDINGS: Normal soft tissue structures. Normal calvarium. Normal size ventricles and extra-axial spaces for the patient''s age. Normal white matter tracts of the cerebral hemispheres. Normal basal ganglia and thalami. Normal brainstem. Normal cerebellum. There is no intracranial hemorrhage. There are no findings of an acute ischemic infarction. Normal visualized paranasal sinuses. CT/Brain/Head without Contrast IMPRESSION: Normal unenhanced CT scan of the brain. Electronically Signed: Isaac Domínguez MD ([facility]) at 14:49 EST , Service support ,
--- NOTE | 2020-04-15 14:02 | ED.DCSUM_ITS ---
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 She states she remembers trying to tell her friend to call her mom because she did not feel right and she had trouble getting the words out. Ultimately EMS ended up called but patient is not sure how. Patient does admit to a history of drug abuse. She believes she last used meth and marijuana 3 days ago. She does not remember the details of the last several days. She states she did have a headache earlier but that seems to be resolved at this time. She is unsure when she last took her medication but believes she took a dose of Celexa yesterday. - Past Medical History (1) Bipolar disorder Status: Chronic (2) History of drug dependence/abuse Status: Chronic (3) Anxiety Status: Chronic (4) Hypertension Status: Chronic Past Medical History - Allergies and Home Meds Allergies/Adverse Reactions: Allergies amoxicillin [Amoxicillin] Allergy (Verified 04/15/20 13:44) Hives propranolol HCl [From Inderal LA] Allergy (Verified 04/15/20 13:44) Hives Prior records reviewed: Yes Surgical History: noncontributory Smoking Status: Current every day smoker Drugs: Marijuana, - - Methamphetamine Review of Systems General: Denies: Chills, Fever Eyes: Denies: Visual changes - bilaterally ENT: Denies: Bilateral ear pain Cardiovascular: Denies: Chest pain Respiratory: Denies: Dyspnea, Cough Gastrointestinal: Denies: Abdominal pain, Vomiting, Diarrhea Musculoskeletal: Denies: Extremity Pain Skin: Denies: Rash Neurological: Reports: Headache Hematologic: Denies: Easy bruising, Easy bleeding Allergy: Denies: Uticaria Physical Exam Vital Signs/Narrative: Vital Signs Temp Pulse Resp BP Pulse Ox 04/15/20 13:35 98 F 108 H 24 H 164/126 H 95 Inital Vital Signs reviewed: Yes General: Well nourished, Well developed Head: Normocephalic ENT: Moist mucous membranes Neck: Supple Cardiovascular: Regular rate, Regular rhythm Respiratory: No distress, CTA bilaterally Abdomen: Soft, Nontender Skin: Normal color Neurological: Alert, Oriented x3, - - No focal neurologic deficits Psychological: Normal affect Diagnostic/Tx/Re-eval Impressions Brain CT 04/15/20 13:59 IMPRESSION: Normal unenhanced CT scan of the brain. Electronically Signed: Isaac Domínguez MD ([place]) at 14:49 EST , Service support , 04/15/20 13:59 Brain/Head without Contrast [CT] Stat Laboratory Results 04/15/20 04/15/20 04/15/20 13:45 13:45 13:45 WBC 11.7 H RBC 4.65 Hgb 13.7 Hct 41.8 MCV 89.9 MCH 29.5 MCHC 32.8 RDW Std Deviation 43.8 RDW Coeff of Anila 13.2 Plt Count 422 MPV 9.7 Immature Gran % (Auto) 0.300 Neut % (Auto) 63.7 Lymph % (Auto) 27.4 [place] % (Auto) 7.1 Eos % (Auto) 1.1 Baso % (Auto) 0.4 Absolute Neuts (auto) 7.4 Absolute Lymphs (auto) 3.20 Nucleated RBC % 0 Sodium 140 Potassium 3.3 L Chloride 104 Carbon Dioxide 29.0 Anion Gap 7 BUN 10 Creatinine 0.79 Estim Creat Clear Calc 90.83 Est GFR (MDRD) Af Amer 115 Est GFR (MDRD) Non-Af 95 BUN/Creatinine Ratio 12.6 Glucose 90 Calcium 8.9 Total Bilirubin 0.90 Direct Bilirubin 0.19 AST 34 ALT 42 Alkaline Phosphatase 97 Total Protein 8.2 Albumin 3.6 Globulin 4.6 H Serum , Qual Urine Opiates Screen Urine Methadone Screen Ur Barbiturates Screen Ur Phencyclidine Scrn Ur Amphetamines Screen U Methamphetamin-MDMA U Benzodiazepines Scrn Urine Cocaine Screen U Cannabinoids Screen Ur Drug Screen Comment Ethyl Alcohol < 3.0 04/15/20 04/15/20 13:45 15:40 WBC RBC Hgb Hct MCV MCH MCHC RDW Std Deviation RDW Coeff of Anila Plt Count MPV Immature Gran % (Auto) Neut % (Auto) Lymph % (Auto) [place] % (Auto) Eos % (Auto) Baso % (Auto) Absolute Neuts (auto) Absolute Lymphs (auto) Nucleated RBC % Sodium Potassium Chloride Carbon Dioxide Anion Gap BUN Creatinine Estim Creat Clear Calc Est GFR (MDRD) Af Amer Est GFR (MDRD) Non-Af BUN/Creatinine Ratio Glucose Calcium Total Bilirubin Direct Bilirubin AST ALT Alkaline Phosphatase Total Protein Albumin Globulin Serum , Qual NEGATIVE Urine Opiates Screen NEGATIVE Urine Methadone Screen NEGATIVE Ur Barbiturates Screen NEGATIVE Ur Phencyclidine Scrn NEGATIVE Ur Amphetamines Screen POSITIVE H U Methamphetamin-MDMA NEGATIVE U Benzodiazepines Scrn NEGATIVE Urine Cocaine Screen NEGATIVE U Cannabinoids Screen POSITIVE H Ur Drug Screen Comment Ethyl Alcohol - Medical Decision Making CT of the head is unremarkable. Blood work reveals mild hypokalemia, otherwise unremarkable. Talk screen is positive for meth and marijuana. On repeat evaluation patient is agitated about her blood pressure being elevated and the fact that she has not yet got her lisinopril. I advised her it has been ordered and is coming up from the pharmacy. Patient has been up to the bathroom and back without difficulty. Her mom will come pick her up. She states she does have her Celexa and lisinopril at home to continue her medications. ED Disposition - Plan for ED Patient: Disposition: Home or Assisted Living Diagnosis: Confusion Instructions: ED ALOC Referrals: Viraj Lara MD [[facility]] - 1-2 Weeks
[2020-04-15 14:14] LABS: Absolute Neutrophil Count 7.4 X10^3/uL (2.0-7.7); Basophil# 0.05 X10^3/uL; Basophil% 0.4 % (0-1); Eosinophil# 0.13 X10^3/uL; Eosinophils% 1.1 % (0-5); Hematocrit 41.8 % (37-47); Hemoglobin 13.7 g/dL (12.0-15.0); Lymphocyte % 27.4 % (19-41); Mean Corp Hgb Conc 32.8 g/dL (32-36); Mean Corpuscular Hgb 29.5 pg (27.0-32.0); Mean Corpuscular Volume 89.9 fL (81-99); Mean Platelet Vol. 9.7 fl (6.2-12.0); Monocyte# 0.83 X10^3/uL; Monocyte% 7.1 % (0-10); NRBC Flagged by Analyzer 0 % (0-5); Neutrophil # 7.42 X10^3/uL (2.7-7.7); Neutrophil % 63.7 % (47-70); Platelet Count 422 K/mm3 (150-450); RBC Distribution Width CV 13.2 % (11.6-14.6); RBC Distribution Width SD 43.8 fl (35.1-43.9); Red Blood Count 4.65 M/mm3 (4.2-5.4); White Blood Count 11.7 K/mm3 (4.4-11.0)
[2020-04-15 14:16] LABS: Internal QC Validated? YES +Cl - CLEAR BKGD; Pregnancy, Serum, hCG Quali. NEGATIVE Negative
[2020-04-15 14:25] LABS: AST(SGOT) 34 U/L (15-37); Alanine Aminotransfer ALT/SGPT 42 U/L (13-56); Albumin, Serum 3.6 g/dL (3.2-5.0); Alkaline Phosphatase 97 U/L (45-117); Anion Gap 7 (5-15); BUN 10 mg/dL (7-18); BUN/Creat Ratio 12.6 RATIO (10-20); Bilirubin, Direct 0.19 mg/dL (0.00-0.30); Calcium,Total 8.9 mg/dL (8.5-10.1); Chloride 104 mmol/L (98-107); Creatinine, Serum 0.79 mg/dL (0.55-1.02); EST Glomerular Filtration Rate 95 mL/min (>60); Est Glom Filt Rate - Afr Amer 115 mL/min (>60); Estimated Creatinine Clearance 90.83 ml/min; Globulin 4.6 g/dL (2.2-4.2); Glucose 90 mg/dL (74-106); Potassium 3.3 mmol/L (3.5-5.1); Protein, Total 8.2 g/dL (6.4-8.2); Sodium Level 140 mmol/L (136-145)
[2020-04-15 15:11] LABS: Alcohol, Blood (Medical)-Serum < 3.0 mg/dL
[2020-04-15 15:51] VITALS: BP 159/129; PULSE 108; RESP 16; O2SAT 96
[2020-04-15 16:17] LABS: Amphetamine Urine VISTA POSITIVE (<1000 ng/mL); Barbiturate Urine VISTA NEGATIVE (< 200 ng/mL); Benzodiazepine Urine VISTA NEGATIVE (< 200 ng/mL); Cocaine Urine VISTA NEGATIVE (< 300 ng/mL); Ecstacy Urine VISTA NEGATIVE (< 500 ng/mL); Methadone Urine VISTA NEGATIVE (< 300 ng/mL); PCP Urine VISTA NEGATIVE (< 25 ng/mL); THC Urine VISTA POSITIVE (< 50 ng/mL); Vista UDS pH Range 6
[2020-04-15] MEDS: Lisinopril 10 MG Tablet PO (16:37)
== END 2020-04-15 16:42 | disposition home or self-care (01) ==
PROVIDERS: Emergency Provider Emergency Medicine
DX: R41.0 Disorientation, unspecified (principal); F19.11 Other psychoactive substance abuse, in remission; F31.9 Bipolar disorder, unspecified; I10 Essential (primary) hypertension; F17.200 Nicotine dependence, unspecified, uncomplicated; Z88.0 Allergy status to penicillin; Z91.14 Patient's other noncompliance with medication regimen; F41.9 Anxiety disorder, unspecified
CPT/HCPCS: 70450; 80048; 80076; 80307; 82077; 84703; 85025; 99285

== ENCOUNTER → 2020-12-05 12:28 | Outpatient (CLI) | payer MEDICAID, SELFPAY ==
[2020-12-07 03:07] LABS: Chlamydia By Nucleic Acid AMP Negative (Negative)
[2020-12-07 12:14] LABS: Gonococcus By Nucleic Acid AMP Negative (Negative)
== END ==
PROVIDERS: Referring Provider Nurse Practitioner Women's Health; Visit Provider Nurse Practitioner Women's Health
DX: Z11.3 Encounter for screening for infections with a predominantly sexual mode of transmission (principal)
CPT/HCPCS: 87491; 87591

== ENCOUNTER → 2021-02-13 15:34 | Outpatient (CLI) | payer MEDICAID, SELFPAY ==
[2021-02-13 16:52] LABS: Absolute Neutrophil Count 4.3 X10^3/uL (2.0-7.7); Basophil# 0.05 X10^3/uL; Basophil% 0.6 % (0-1); Eosinophil# 0.44 X10^3/uL; Eosinophils% 5.1 % (0-5); Hematocrit 41.8 % (37-47); Hemoglobin 13.6 g/dL (12.0-15.0); Lymphocyte % 37.1 % (19-41); Mean Corp Hgb Conc 32.5 g/dL (32-36); Mean Corpuscular Hgb 28.6 pg (27.0-32.0); Mean Corpuscular Volume 87.8 fL (81-99); Monocyte# 0.64 X10^3/uL; Monocyte% 7.4 % (0-10); NRBC Flagged by Analyzer 0 % (0-5); Neutrophil # 4.25 X10^3/uL (2.7-7.7); Neutrophil % 49.2 % (47-70); Platelet Count 375 K/mm3 (150-450); RBC Distribution Width CV 12.3 % (11.6-14.6); Red Blood Count 4.76 M/mm3 (4.2-5.4); White Blood Count 8.6 K/mm3 (4.4-11.0)
[2021-02-13 17:00] LABS: ALB/GLOB Ratio 0.7 RATIO (0.9-2.4); AST(SGOT) 33 U/L (15-37); Alanine Aminotransfer ALT/SGPT 51 U/L (13-56); Albumin, Serum 3.2 g/dL (3.2-5.0); Alkaline Phosphatase 76 U/L (45-117); Anion Gap 5 (5-15); BUN 11 mg/dL (7-18); BUN/Creat Ratio 13.4 RATIO (10-20); Calcium,Total 8.8 mg/dL (8.5-10.1); Chloride 106 mmol/L (98-107); Cholesterol 187 mg/dL (200); Creatinine, Serum 0.82 mg/dL (0.55-1.02); EST Glomerular Filtration Rate 90 mL/min (>60); Est Glom Filt Rate - Afr Amer 109 mL/min (>60); Globulin 4.3 g/dL (2.2-4.2); Glucose 145 mg/dL (74-106); High Density Lipoprotein 41 mg/dL; Potassium 3.8 mmol/L (3.5-5.1); Protein, Total 7.5 g/dL (6.4-8.2); Sodium Level 138 mmol/L (136-145); Triglycerides 198 mg/dL; Very Low Density Lipoprotein 40 mg/dL (5-40)
[2021-02-13 17:17] LABS: Hemoglobin A1c 6.4 % (3.8-5.6)
== END ==
PROVIDERS: PCP Internal Medicine; Referring Provider Internal Medicine; Visit Provider Internal Medicine
DX: I10 Essential (primary) hypertension (principal); E66.01 Morbid (severe) obesity due to excess calories
CPT/HCPCS: 36415; 80053; 80061; 83036; 85025

== ENCOUNTER 2021-02-21 20:31 | Emergency (ER) | payer MEDICAID, SELFPAY ==
[2021-02-21 20:31] VITALS: BP 165/116; PULSE 108; RESP 16; TEMP 36.4; O2SAT 97; BMI 45.6
[2021-02-21] MEDS: Clindamycin HCl 150 MG Capsule 300 MG PO (21:05)
[2021-02-21] MEDS: HYDROcodone Bitartrate/Apap 5/325 Tablet PO (21:05)
--- NOTE | 2021-02-21 21:32 | ED.VIS.DENTA ---
HPI History of Present Illness Chief Complaint: Dental Narrative Narrative: Patient presenting for evaluation secondary to dental pain. Patient reports that over the course of the last multiple weeks she has been dealing with migratory dental pain. She reports that during the day she is actually typically okay, at night she tends to have worsening dental pain. This typically associated with a lower jaw pain, occasionally associated with the upper jaw. Patient has been trying to get in with a dentist, required x-rays prior to getting in she supposed to get those somewhat soon, and get in with a dentist. She denies any presence of fevers. No difficulty swallowing. She has been taking ibuprofen and Aleve at home for relief of pain. Review of systems otherwise negative. [facility] Medical History Anxiety Hypertension Morbid obesity Tobacco abuse Home Medications lisinopril 10 mg PO DAILY 12/23/16 [History Last Taken 08/26/17] lamotrigine 200 mg tablet 200 mg PO DAILY 12/05/20 [History Last Taken Unknown] nicotine 21 mg/24 hr daily transdermal patch 1 patch TRANSDERMAL Q24H #28 ea 02/13/21 [Rx Last Taken Unknown] clindamycin HCl 300 mg PO 4X/DAY #80 capsule 02/21/21 [Rx Last Taken Unknown] ketorolac 10 mg PO TID 5 Days #15 tab 02/21/21 [Rx Last Taken Unknown] Allergy/AdvReac Type Severity Reaction Status Date / Time amoxicillin [Amoxicillin] Allergy Hives Verified 02/21/21 20:33 propranolol HCl Allergy Hives Verified 02/21/21 20:33 [From Inderal LA] Family History Unknown Diabetes Multiple sclerosis cousin Mother Diabetes Hypertension Grandmother Diabetes Hypertension Aunt Multiple sclerosis Surgical History History of cholecystectomy Social History Smoking Status: Current every day smoker tobacco type: cigarettes Tobacco: How many years used: 7 alcohol intake: never substance use type: former substance user Date of last use: 04/16/2020, marijuana and methamphetamine caffeine: Yes what type of physical activity do you participate in: walking seatbelt use: always do you feel safe at home: Yes additional social history: unemployed ROS ROS ED Constitutional Constitutional ED: Denies fever(s) ENT ENT ED: Reports other Details: dental pain Respiratory/Chest Respiratory/Chest: Denies dyspnea Gastrointestinal Gastrointestinal: Denies vomiting Integumentary Denies rash Hematologic/Lymphatic Hematologic/Lymphatic: Denies easy bleeding or easy bruising EXAM Physical Exam Const Vital Signs: 02/21/21 20:31 Temperature 97.6 F L Temperature Source Temporal Pulse Rate 108 H Respiratory Rate 16 Blood Pressure 165/116 H Blood Pressure Mean 132 Pulse Ox 97 Oxygen Delivery Method Room Air Positive well nourished, well developed and obese Constitutional Narrative: Visibly in pain General Appearance ED: well developed Nutritional Appearance: obese HEENT HEENT Narrative: Oral exam shows reasonably good dentition. Patient has a couple of fillings, she has evidence of an [place] 1 dental fracture of her second mandibular right molar. Gums appear normal with no focal abscess. No significant evidence of dental caries otherwise. Sublingual space is soft, no trismus normal posterior oropharynx. Eyes EOMs intact bilaterally Neck supple Resp normal respiratory effort Cardio regular rate and regular rhythm Extremity normal to inspection Neuro oriented x3 Sensorium / Orientation: alert Skin no rashes or lesions noted MDM MDM MDM Narrative Medical decision making narrative: Patient presenting secondary to dental pain. No obvious evidence of deep space dental infection, but the patient is having some migratory pain. Patient was given [place] and clindamycin in the emergency department. Patient be discharged with a course of Toradol and clindamycin secondary to a penicillin allergy. She was recommended that she needs to follow-up with a dentist. Discharge Plan Triage Chief Complaint: Dental ED Provider: Deny Galicia Dx/Rx/DC Orders Clinical Impression: Pain, dental Instructions: ED Dental Pain Prescriptions: New ketorolac 10 mg tablet 10 mg PO TID 5 Days Qty: 15 RF: 0 clindamycin HCl 150 mg capsule 300 mg PO 4X/DAY Qty: 80 RF: 0 No Action lamotrigine [Lamictal] 200 mg tablet 200 mg PO DAILY RF: 0 nicotine 21 mg/24 hr patch 24 hour 1 patch transdermal Q24H Qty: 28 RF: 3 lisinopril 10 MG tablet 10 mg PO DAILY RF: 0 Primary Care Provider: Sergio Rodriges Referrals: Sergio Rodriges MD [Primary Care Provider] - Disposition Disposition: Home, Self Care
== END 2021-02-21 22:28 | disposition home or self-care (01) ==
PROVIDERS: Emergency Provider Emergency Medicine; PCP Internal Medicine
DX: K08.89 Other specified disorders of teeth and supporting structures (principal); Z88.0 Allergy status to penicillin; F17.210 Nicotine dependence, cigarettes, uncomplicated; I10 Essential (primary) hypertension; F41.9 Anxiety disorder, unspecified; Z56.0 Unemployment, unspecified; Z79.1 Long term (current) use of non-steroidal anti-inflammatories (NSAID); E66.9 Obesity, unspecified; Z90.49 Acquired absence of other specified parts of digestive tract
CPT/HCPCS: 99283

== ENCOUNTER 2021-02-22 19:57 | Emergency (ER) | payer MEDICAID, SELFPAY ==
[2021-02-22 19:58] VITALS: BP 189/128; PULSE 111; RESP 20; TEMP 36.1; O2SAT 100; BMI 49.6
--- NOTE | 2021-02-22 20:11 | EDS_ITS ---
HPI History of Present Illness Chief Complaint: Dental Narrative Narrative: Patient with past medical history of hypertension presents with tooth pain that she has had for the last few weeks. She states she is trying to get into the [facility] dental clinic but no one has called her back. She complains of pain in her right lower jaw along her incisor teeth back to her molars. She denies any fevers or chills. No nausea or vomiting. No difficulty swallowing. She states the pain is constant and dull and achy then becomes sharp and stabbing. She is a smoker. Of note, she was seen in the emergency department last evening and put on antibiotics such as clindamycin and also gi elina ketorolac for 5 days. [facility] Medical History (Updated 02/22/21 @ 20:16 by Franklin Martinez MD) Anxiety Diabetes Hypertension Morbid obesity Tobacco abuse Ulcer Home Medications lisinopril 10 mg PO DAILY 12/23/16 [History Last Taken 08/26/17] lamotrigine 200 mg tablet 200 mg PO DAILY 12/05/20 [History Last Taken Unknown] nicotine 21 mg/24 hr daily transdermal patch 1 patch TRANSDERMAL Q24H #28 ea 02/13/21 [Rx Last Taken Unknown] clindamycin HCl 300 mg PO 4X/DAY #80 capsule 02/21/21 [Rx Last Taken Unknown] ketorolac 10 mg PO TID 5 Days #15 tab 02/21/21 [Rx Last Taken Unknown] tramadol [Ultram] 50 mg PO Q6H PRN #12 tab 02/22/21 [Rx Last Taken Unknown] Allergy/AdvReac Type Severity Reaction Status Date / Time amoxicillin [Amoxicillin] Allergy Hives Verified 02/22/21 20:00 propranolol HCl Allergy Hives Verified 02/22/21 20:00 [From Inderal LA] Family History Unknown Diabetes Multiple sclerosis cousin Mother Diabetes Hypertension Grandmother Diabetes Hypertension Aunt Multiple sclerosis Surgical History History of cholecystectomy Social History Smoking Status: Current every day smoker tobacco type: cigarettes Tobacco: How many years used: 7 alcohol intake: never substance use type: former substance user Date of last use: 04/16/2020, marijuana and methamphetamine caffeine: Yes what type of physical activity do you participate in: walking seatbelt use: always do you feel safe at home: Yes additional social history: unemployed ROS ROS ED ROS Narrative Constitutional: No fever, no chills. HEENT: No sore throat. No neck pain. No loss of vision. No rhinorrhea. Positive dental pain right lower jaw. Cardiovascular: No chest pain. No palpitations. No pedal edema. Respiratory: No cough, no shortness of breath. Abdominal: No abdominal pain. No nausea. No vomiting. Genitourinary: No dysuria. No hematuria. Musculoskeletal: No myalgias. No arthralgias. Neurologic: No headaches. No dizziness. No lightheadedness. Skin: No rash. No change in color. Psychiatric: No depression. No anxiety. EXAM Physical Exam Narrative Exam Narrative: Afebrile. Vital signs noted. HEENT: Normocephalic. Atraumatic. PERRL, EOMI. Neck soft and supple. No point tenderness or step off. Positive tenderness to percussion right lower jaw. No gingival swelling. Positive carious tooth right molar. No drooling or trismus. No Nic angina. No meningismus. Cardiovascular: Regular rate and rhythm. No murmurs, rubs, or gallops appreciated. Respiratory: No tachypnea. Lungs clear to auscultation bilaterally. Gastrointestinal: Abdomen soft, nontender, with normoactive bowel sounds. No rebound or guarding. Neurological: Awake. Alert. Nonfocal, nonlateralizing. Skin: No rash. Normal color. No pallor. Musculoskeletal: No pedal edema. Full range of motion extremities. Psychiatric: Tearful on examination. Const Vital Signs: 02/22/21 19:58 02/22/21 20:14 02/22/21 20:28 Temperature 96.9 F L 96.9 F L Temperature Source Temporal Temporal Pulse Rate 111 H 111 H 89 Respiratory Rate 20 H 20 H 22 H Blood Pressure 189/128 H 189/128 H 143/89 H Blood Pressure Mean 148 148 Pulse Ox 100 100 97 Oxygen Delivery Method Room Air MDM MDM MDM Narrative Medical decision making narrative: Smoking cessation was discussed. I see no evidence of drainable abscess. Feel she is on the right medication secondary to her allergy to penicillin. She will be given additional analgesic in the form of an Ultram tablet here, and I reviewed her prescription monitoring program which is negative for narcotics. I will write her prescription for short course of therapy for Ultram. She will continue to try and follow-up with a dentist soon as possible. I feel she be discharged safely home with follow-up. Disposition is discharged home in stable condition. Discharge Plan Triage Chief Complaint: Dental ED Provider: Franklin Martinez Dx/Rx/DC Orders Clinical Impression: Pain, dental Instructions: ED Dental Pain, ED Dental Cavity Prescriptions: New tramadol [Ultram] 50 mg tablet 50 mg PO Q6H PRN (Reason: pain) Qty: 12 RF: 0 No Action lamotrigine [Lamictal] 200 mg tablet 200 mg PO DAILY RF: 0 nicotine 21 mg/24 hr patch 24 hour 1 patch transdermal Q24H Qty: 28 RF: 3 lisinopril 10 MG tablet 10 mg PO DAILY RF: 0 ketorolac 10 mg tablet 10 mg PO TID 5 Days Qty: 15 RF: 0 clindamycin HCl 150 mg capsule 300 mg PO 4X/DAY Qty: 80 RF: 0 Primary Care Provider: Sergio Rodriges Referrals: Sergio Rodriges MD [Primary Care Provider] - Adwoa Castro [NON-STAFF] - Disposition Disposition: Home, Self Care Discharge Date/Time: 02/22/21 20:31
[2021-02-22 20:14] VITALS: BP 189/128; PULSE 111; RESP 20; TEMP 36.1; O2SAT 100
[2021-02-22] MEDS: traMADol 50 MG Tablet PO (20:20)
[2021-02-22 20:28] VITALS: BP 143/89; PULSE 89; RESP 22; O2SAT 97
--- NOTE | 2021-02-22 20:28 | ED.RN ---
THIS NURSE REVIEWED D/C INSTRUCTIONS WITH PT AND MOTHER. BOTH VERBALIZED UNDERSTANDING OF INSTRUCTIONS. PT DENIES FURTHER NEEDS OR QUESTIONS AT THIS TIME. PT WAITING IN ROOM FOR PRESCRIPTION TO BE FILLED
== END 2021-02-22 20:31 | disposition home or self-care (01) ==
LOC: ED 20:25
PROVIDERS: Emergency Provider Emergency Medicine; PCP Internal Medicine
DX: K08.89 Other specified disorders of teeth and supporting structures (principal); F17.210 Nicotine dependence, cigarettes, uncomplicated; E11.9 Type 2 diabetes mellitus without complications; F41.9 Anxiety disorder, unspecified; I10 Essential (primary) hypertension; Z56.0 Unemployment, unspecified; Z79.1 Long term (current) use of non-steroidal anti-inflammatories (NSAID); Z88.0 Allergy status to penicillin
CPT/HCPCS: 99283

== ENCOUNTER 2021-05-08 15:54 | Outpatient (CLI) | payer MEDICAID, SELFPAY ==
[2021-05-08 16:04] LABS: Absolute Lymphocyte Count 4.17 X10^3/uL (0.83-4.51); Absolute Neutrophil Count 6.1 X10^3/uL (2.0-7.7); Basophil# 0.07 X10^3/uL; Basophil% 0.6 % (0-1); Eosinophil# 0.43 X10^3/uL; Eosinophils% 3.7 % (0-5); Hematocrit 42.4 % (37-47); Hemoglobin 14.1 g/dL (12.0-15.0); Lymphocyte # 4.17 X10^3/ul (0.83-4.51); Lymphocyte % 35.4 % (19-41); Mean Corp Hgb Conc 33.3 g/dL (32-36); Mean Corpuscular Hgb 29.2 pg (27.0-32.0); Mean Corpuscular Volume 87.8 fL (81-99); Mean Platelet Vol. 9.8 fl (6.2-12.0); Monocyte# 0.93 X10^3/uL; Monocyte% 7.9 % (0-10); NRBC Flagged by Analyzer 0 % (0-5); Neutrophil # 6.11 X10^3/uL (2.7-7.7); Neutrophil % 51.9 % (47-70); Platelet Count 398 K/mm3 (150-450); RBC Distribution Width CV 13.3 % (11.6-14.6); RBC Distribution Width SD 42.8 fl (35.1-43.9); Red Blood Count 4.83 M/mm3 (4.2-5.4); White Blood Count 11.8 K/mm3 (4.4-11.0)
[2021-05-09 08:44] LABS: Prolactin 9.1 ng/mL; Thyroid Stim Hormone (TSH) 3.13 uIU/mL (0.358-3.74)
== END 2021-05-08 23:59 | disposition short-term general hospital (02) ==
LOC: PAVLAB 15:55
PROVIDERS: PCP Internal Medicine; Referring Provider Nurse Practitioner Women's Health; Visit Provider Nurse Practitioner Women's Health
DX: N92.0 Excessive and frequent menstruation with regular cycle (principal); Z13.29 Encounter for screening for other suspected endocrine disorder
CPT/HCPCS: 36415; 84146; 84443; 85025

== ENCOUNTER 2021-05-13 11:57 | Outpatient (CLI) | payer MEDICAID, SELFPAY ==
--- NOTE | 2021-05-13 12:00 | US_ITS ---
STUDY: ULTRASOUND OF THE FEMALE PELVIS - COMPLETE REASON FOR EXAM: Female, 26 years old. Menorrhagia LMP: 04/13/2021. TECHNIQUE: Transabdominal and Transvaginal TECHNICAL QUALITY: Adequate. COMPARISON: None. FINDINGS: The uterus is anteverted and is in a midline position. The uterus measures 7.5 cm x 3.6 cm x 2.9 cm. There is a Nabothian cyst of the cervix. The endometrium measures 9 mm in thickness, and is hyperechoic. There is no demonstrated endometrial mass. There is no demonstrated myometrial mass. I.U.D. - The patient does not have an I.U.D. The right ovary is visualized. The right ovary measures 3.7 cm x 3.8 cm x 1.8 cm. There is no right ovarian cyst or ovarian mass. There is no visualized right adnexal mass or complex lesion. There is normal arterial and normal venous vascularity. The left ovary is visualized. The left ovary measures 4.1 cm x 3.9 cm x 2.4 cm. 2 dominant follicles are seen in the left ovary. The larger measures 1.6 size by 1.7 sinus by 1.6 cm. There is no visualized left adnexal mass or complex lesion. There is normal arterial and normal venous vascularity. There is no fluid in the cul-de-sac. The pre void volume of the bladder was 103 ml. US/Pelvic (Non ) IMPRESSION: 2 dominant follicles are seen in the left ovary. Electronically Signed: Timothy Mcneil MD at 15:43 EST ,
--- NOTE | 2021-05-13 12:00 | US_ITS ---
STUDY: ULTRASOUND OF THE FEMALE PELVIS - COMPLETE REASON FOR EXAM: Female, 26 years old. Menorrhagia LMP: 04/13/2021. TECHNIQUE: Transabdominal and Transvaginal TECHNICAL QUALITY: Adequate. COMPARISON: None. FINDINGS: The uterus is anteverted and is in a midline position. The uterus measures 7.5 cm x 3.6 cm x 2.9 cm. There is a Nabothian cyst of the cervix. The endometrium measures 9 mm in thickness, and is hyperechoic. There is no demonstrated endometrial mass. There is no demonstrated myometrial mass. I.U.D. - The patient does not have an I.U.D. The right ovary is visualized. The right ovary measures 3.7 cm x 3.8 cm x 1.8 cm. There is no right ovarian cyst or ovarian mass. There is no visualized right adnexal mass or complex lesion. There is normal arterial and normal venous vascularity. The left ovary is visualized. The left ovary measures 4.1 cm x 3.9 cm x 2.4 cm. 2 dominant follicles are seen in the left ovary. The larger measures 1.6 size by 1.7 sinus by 1.6 cm. There is no visualized left adnexal mass or complex lesion. There is normal arterial and normal venous vascularity. There is no fluid in the cul-de-sac. The pre void volume of the bladder was 103 ml. US/Transvaginal Non- IMPRESSION: 2 dominant follicles are seen in the left ovary. Electronically Signed: Timothy Mcneil MD at 15:43 EST ,
== END 2021-05-13 23:59 | disposition short-term general hospital (02) ==
LOC: US 11:59
PROVIDERS: PCP Internal Medicine; Referring Provider Nurse Practitioner Women's Health; Visit Provider Nurse Practitioner Women's Health
DX: N92.0 Excessive and frequent menstruation with regular cycle (principal)
CPT/HCPCS: 76830; 76856

== ENCOUNTER 2021-06-26 09:00 | Outpatient (RCR) | payer MEDICAID, SELFPAY | END 2021-07-11 23:59 | LOC: DC 09:00 | PROVIDERS: PCP Internal Medicine; Referring Provider Internal Medicine; Visit Provider Internal Medicine | DX: E11.9 Type 2 diabetes mellitus without complications (principal) | CPT/HCPCS: 97802; G0108 ==

== ENCOUNTER 2021-10-01 16:25 | Emergency (ER) | payer MEDICAID, SELFPAY ==
[2021-10-01 16:26] VITALS: BP 150/113; PULSE 104; RESP 18; TEMP 36.9; O2SAT 96; BMI 53.1
--- NOTE | 2021-10-01 16:49 | CT_ITS ---
STUDY: CT BRAIN WITHOUT CONTRAST REASON FOR EXAM: Female, 26 years old. headache RADIATION DOSAGE (If Supplied By Facility): CTDIvol = ( 44.99 ) mGy, DLP = ( 745.49 ) mGycm TECHNIQUE: Transaxial CT imaging of the brain was performed without administration of intravenous contrast material. Individualized dose optimization techniques were used for this CT. COMPARISON: 04/15/2020 FINDINGS: There is no intra-/extra-axial fluid collection, mass effect, or midline shift. The jarrett/white matter junction is preserved. The basal cisterns are patent. Bilateral paranasal sinuses and mastoid air cells are clear. The calvarium is intact. CT/Brain/Head without Contrast IMPRESSION: No acute intracranial finding. Electronically Signed: Dakota Pollack MD at 17:32 EDT ,
--- NOTE | 2021-10-01 16:51 | EX.ED.VIS.HA ---
HPI History of Present Illness Chief Complaint: Headache Informant: patient Onset/Context/Timing Onset: Days Context: Gradual Timing: Continuous Quality -Headache: Positive for Similar Prior Headaches, Sharp and Tightness Current Severity: Moderate Maximum Severity: Moderate Associated Symptoms/Injury Associated Symptoms: Positive for Blurred Vision; Negative for Fever, Nausea, Vomiting, Sore Throat, Sinus Pressure, Numbness, Tingling, Preceding Aura, Photophobia or Visual Loss Injury - NELSON: Negative for Direct Trauma, Fall or Assault Narrative Narrative: 30-year-old female history of diabetes, hypertension and bipolar. States that she has had a headache since Thursday evening when she was coughing and developed a posterior headache. Says she had some blurry vision with it. Has had headaches like this before but they always resolved. This is now been constant for 3 days. She denies any fever or chills. No trauma. She took ibuprofen and Advil yesterday and headaches only gotten worse. Says she does have some blurry vision. No arm or leg numbness or weakness. No family history of intracranial bleeds or aneurysms. She is on no blood thinners. Denies any neck pain. Prior similar symptoms: Yes Recent Illness/Hospitalization: No PFSH PFS Medical History Anxiety Diabetes Gastric ulcer Hypertension Morbid obesity Tobacco abuse Type 2 diabetes mellitus Ulcer Home Medications lamotrigine 200 mg tablet (Lamictal) 200 mg PO DAILY 12/05/20 [History Last Taken Unknown] lisinopril 10 mg tablet 10 mg PO DAILY #90 tabs 08/13/21 [Rx Last Taken Unknown] blood sugar diagnostic (OneTouch Ultra Test) #100 ea 08/19/21 [Rx Last Taken Unknown] blood-glucose meter (OneTouch Ultra2 Meter) #1 ea 08/19/21 [Rx Last Taken Unknown] lancets ([employer] [place] UltraSoft Lancets) #100 ea 08/19/21 [Rx Last Taken Unknown] metformin 500 mg tablet 500 mg PO BID #60 tabs 08/19/21 [Rx Last Taken Unknown] omeprazole 40 mg capsule,delayed release 40 mg PO DAILY #90 caps 08/19/21 [Rx Last Taken Unknown] Allergy/AdvReac Type Severity Reaction Status Date / Time amoxicillin [Amoxicillin] Allergy Hives Verified 10/01/21 16:27 propranolol HCl Allergy Hives Verified 10/01/21 16:27 [From Inderal LA] Family History Unknown Diabetes Multiple sclerosis cousin Mother Diabetes Hypertension Grandmother Diabetes Hypertension Aunt Multiple sclerosis Surgical History History of cholecystectomy Social History Smoking Status: Current every day smoker tobacco type: cigarettes Tobacco: How many years used: 7 alcohol intake: never substance use type: former substance user Date of last use: 04/16/2020, marijuana and methamphetamine caffeine: Yes what type of physical activity do you participate in: walking seatbelt use: always do you feel safe at home: Yes additional social history: unemployed ROS ROS ED ROS Narrative Headache. Visual change. Review of Systems ROS Unobtainable: Denies due to encephalopathy Constitutional Constitutional ED: Denies chills or fever(s) Eyes Eyes: Reports blurry vision; Denies diplopia ENT ENT ED: Denies ear pain or rhinorrhea Cardiovascular Cardiovascular: Denies chest pain Respiratory/Chest Respiratory/Chest: Denies cough Gastrointestinal Gastrointestinal: Denies abdominal pain Genitourinary Genitourinary ED: Denies dysuria Musculoskeletal Musculoskeletal: Denies arthralgias Integumentary Denies abscess Neurologic Neurologic: Reports headache(s) Psychiatric Psychiatric: Denies anxiety Endocrine Endocrinology: Denies polydipsia Hematologic/Lymphatic Hematologic/Lymphatic: Denies easy bleeding Allergic/Immunologic Allergic/Immunologic ED: Denies mouth swelling EXAM Physical Exam Narrative Exam Narrative: 26-year-old female no acute distress vital signs stable blood pressure elevated 1 5113. She does not look septic or toxic. H EENT exam unremarkable atraumatic. Pupils round reactive light no facial droop. Normal speech. Neck nontender no meningismus. Lungs are clear. Heart regular rhythm. Abdomen soft nontender. Moving all 4 extremities. Neurovascular intact. NIH is 0. 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 Bilateral dorsi plantarflexion. Fingertip to nose within normal limits. Const Vital Signs: 10/01/21 16:26 Temperature 98.4 F Temperature Source Temporal Pulse Rate 104 H Respiratory Rate 18 Blood Pressure 150/113 H Blood Pressure Mean 125 Pulse Ox 96 Oxygen Delivery Method Room Air Positive well nourished, well developed and obese; Negative for cachectic, contractures or unkempt General Appearance ED: well developed; Negative for unkempt, cachectic or contractures Nutritional Appearance: obese; Negative for cachectic HEENT Reports normocephalic and moist mucous membranes; Denies dry mucous membranes atraumatic; Negative for trauma, tenderness, temporal artery tenderness or vesicular rash Face and Sinus: Negative for sinus tenderness Mouth ED: No dry mucous membranes Mouth: No dry mucous membranes Eyes PERRL and EOMs intact bilaterally General Eye ED: Negative for pale conjunctiva or scleral icterus Neck no lymphadenopathy, supple, no meningeal signs and no JVD General: Negative for tenderness Resp normal respiratory effort and clear to auscultation bilaterally Effort and Inspection: Negative for retractions Auscultation: Negative for rales, rhonchi or wheezes Cardio regular rate and regular rhythm Rate: Negative for bradycardia or tachycardic Rhythm: Negative for abnormal rhythm GI non-tender and non-distended Auscultation: normoactive bowel sounds Palpation: soft; Negative for firm, tender, guarding, rigid or hepatomegaly Back/Spine no CVA tenderness General Back: Negative for CVA tenderness Cervical Spine: Negative for cervical spine tenderness Thoracic Spine / Upper Back: Negative for thoracic spinal tenderness Extremity normal to inspection and full ROM General Extremety ED: Negative for edema or tenderness General Extremity: Negative for edema Neuro oriented x3 and CN's II-XII intact bilaterally Sensorium / Orientation: awake, alert, oriented to person, oriented to place and oriented to time; Negative for orientation impaired, lethargic or stuporous Coordination / Balance: [id number] test normal and [id number] test normal Speech: speech normal Psych Appearance: Negative for unkempt Mood & Affect: Negative for depressed, anxious or tearful Skin Lesions: no lesions Rashes: no rashes Trauma: Negative for abrasion MDM MDM MDM Narrative Medical decision making narrative: 30-year-old female with headache post coughing. Does not have a significant history of headaches. Has been now 3 days. She has a visual change. CAT scan will be obtained. She will be treated with Reglan and IV Benadryl. Repeat exam patient doing well at 5:47 PM. Headache resolved after the medication. CAT scan unremarkable. Neurologic exam remains normal. She clinically feels well. On recheck her blood pressure she is doing well she will be discharged to home. Radiography Diagnostic Testing: Clinical Impression(s) from Imaging Studies Brain CT 10/01/21 16:49 IMPRESSION: No acute intracranial finding. Electronically Signed: Dakota Pollack MD at 17:32 EDT Reading Location ID and State: [facility] / [place] Tel , Service support , Discharge Plan Triage Chief Complaint: Headache ED Provider: Elijah Todd Dx/Rx/DC Orders Clinical Impression: Headache, Hypertension, History of bipolar disorder, History of diabetes mellitus Instructions: ED Headache Unspecified Prescriptions: No Action lamotrigine [Lamictal] 200 mg tablet 200 mg PO DAILY omeprazole 40 mg capsule,delayed release(DR/EC) 40 mg PO DAILY Qty: 90 2RF metformin 500 mg tablet 500 mg PO BID Qty: 60 3RF lisinopril 10 mg tablet 10 mg PO DAILY Qty: 90 1RF (DME) blood-glucose meter [OneTouch Ultra2 Meter] [facility] See Rx Instructions .ROUTE .MEDSUPPLY Qty: 1 0RF Rx Instructions: Check blood sugar daily (DME) OneTouch Ultra Test Strip See Rx Instructions .ROUTE .MEDSUPPLY Qty: 100 3RF Rx Instructions: Check blood sugar daily (DME) lancets [OneTouch UltraSoft Lancets] [facility] See Rx Instructions .ROUTE .MEDSUPPLY Qty: 100 3RF Rx Instructions: Check blood sugar daily Primary Care Provider: Sergio Rodriges Referrals: Sergio Rodriges MD [Primary Care Provider] - 3-5 Days if not improving Activity Restrictions/Additional Instructions: Tylenol and/or Motrin as needed for headache. Plenty of fluids and rest. Watch her blood sugars closely today. Recheck your blood pressure tonight before going to bed. Disposition Disposition: Home, Self Care
[2021-10-01] MEDS: DiphenhydrAMINE 50 MG/ML Syringe IV (17:06)
[2021-10-01] MEDS: 0.9% Normal Saline 1,000 ML 1000 ML IV (17:06)
[2021-10-01] MEDS: Metoclopramide 10 MG/2 ML Vial IV (17:06)
[2021-10-01 17:53] VITALS: BP 140/82
== END 2021-10-01 17:56 | disposition home or self-care (01) ==
PROVIDERS: Emergency Provider Emergency Medicine; PCP Internal Medicine; Visit Provider Emergency Medicine
DX: R51.9 Headache, unspecified (principal); F31.9 Bipolar disorder, unspecified; E11.9 Type 2 diabetes mellitus without complications; I10 Essential (primary) hypertension; F17.210 Nicotine dependence, cigarettes, uncomplicated; F12.90 Cannabis use, unspecified, uncomplicated
CPT/HCPCS: 70450; 99283; J7030

== ENCOUNTER → 2021-12-26 | Outpatient (CLI) | payer MEDICAID, SELFPAY ==
[2022-01-03 20:52] LABS: HPV Reflexed? NOT INDICATED
== END | disposition home or self-care (01) ==
LOC: LABSPEC 15:17
PROVIDERS: PCP Internal Medicine; Referring Provider Obstetrics & Gynecology; Visit Provider Obstetrics & Gynecology
DX: Z12.4 Encounter for screening for malignant neoplasm of cervix (principal)
CPT/HCPCS: 88175; G0145

== ENCOUNTER → 2022-02-11 | Outpatient (CLI) | payer MEDICAID, SELFPAY ==
[2022-02-11 11:43] LABS: Hemoglobin 13.9 g/dL (12.0-15.0); Mean Corp Hgb Conc 33.9 g/dL (32-36); Mean Corpuscular Hgb 29.8 pg (27.0-32.0); Mean Platelet Vol. 10.3 fl (6.2-12.0); Platelet Count 322 K/mm3 (150-450); RBC Distribution Width CV 13.4 % (11.6-14.6); RBC Distribution Width SD 43.6 fl (35.1-43.9); Red Blood Count 4.66 M/mm3 (4.2-5.4); White Blood Count 9.9 K/mm3 (4.4-11.0)
[2022-02-11 11:59] LABS: hCG Titer Quant., Serum < 1 mIU/mL (1-3)
[2022-02-11 12:00] LABS: Iron Binding Capacity,Total 575 ug/dL (250-450)
== END | disposition home or self-care (01) ==
LOC: PAVLAB 11:28
PROVIDERS: PCP Internal Medicine; Referring Provider Obstetrics & Gynecology; Visit Provider Obstetrics & Gynecology
DX: N92.0 Excessive and frequent menstruation with regular cycle (principal)
CPT/HCPCS: 36415; 83550; 84702; 85027

== ENCOUNTER → 2022-02-27 | Outpatient (CLI) | payer MEDICAID, SELFPAY ==
[2022-03-03 22:06] LABS: Chlamydia By Nucleic Acid AMP Negative (Negative)
[2022-03-04 12:41] LABS: Gonococcus By Nucleic Acid AMP Negative (Negative)
== END | disposition home or self-care (01) ==
PROVIDERS: PCP Internal Medicine; Visit Provider Obstetrics & Gynecology
DX: N89.8 Other specified noninflammatory disorders of vagina (principal)
CPT/HCPCS: 87070; 87077; 87186; 87205; 87491; 87591

== ENCOUNTER → 2022-03-17 | Outpatient (CLI) | payer MEDICAID, SELFPAY ==
[2022-03-17 13:37] LABS: Absolute Lymphocyte Count 3.83 X10^3/uL (0.83-4.51); Absolute Neutrophil Count 7.3 X10^3/uL (2.0-7.7); Basophil# 0.08 X10^3/uL; Basophil% 0.6 % (0-1); Eosinophil# 0.99 X10^3/uL; Eosinophils% 7.6 % (0-5); Hematocrit 42.4 % (37-47); Hemoglobin 14.1 g/dL (12.0-15.0); Lymphocyte # 3.83 X10^3/ul (0.83-4.51); Lymphocyte % 29.3 % (19-41); Mean Corp Hgb Conc 33.3 g/dL (32-36); Mean Corpuscular Hgb 29.1 pg (27.0-32.0); Mean Corpuscular Volume 87.6 fL (81-99); Mean Platelet Vol. 9.9 fl (6.2-12.0); Monocyte# 0.81 X10^3/uL; Monocyte% 6.2 % (0-10); NRBC Flagged by Analyzer 0 % (0-5); Neutrophil % 55.9 % (47-70); Platelet Count 375 K/mm3 (150-450); RBC Distribution Width SD 41.5 fl (35.1-43.9); Red Blood Count 4.84 M/mm3 (4.2-5.4); White Blood Count 13.1 K/mm3 (4.4-11.0)
[2022-03-17 13:40] LABS: Erythrocyte Sedimentation Rate 39 mm/hr (0-30)
[2022-03-17 14:09] LABS: ALB/GLOB Ratio 0.9 RATIO (0.9-2.4); AST(SGOT) 32 U/L (15-37); Alanine Aminotransfer ALT/SGPT 46 U/L (13-56); Albumin, Serum 3.6 g/dL (3.2-5.0); Alkaline Phosphatase 84 U/L (45-117); Amylase 40 U/L (25-115); Anion Gap 5 (5-15); BUN 8 mg/dL (7-18); BUN/Creat Ratio 9.2 RATIO (10-20); Calcium,Total 9.2 mg/dL (8.5-10.1); Chloride 109 mmol/L (98-107); Creatinine, Serum 0.87 mg/dL (0.55-1.02); EST Glomerular Filtration Rate 84 mL/min (>60); Est Glom Filt Rate - Afr Amer 101 mL/min (>60); Globulin 4.1 g/dL (2.2-4.2); Glucose 111 mg/dL (74-106); Lipase 131 U/L (73-393); Potassium 3.9 mmol/L (3.5-5.1); Protein, Total 7.7 g/dL (6.4-8.2); Sodium Level 138 mmol/L (136-145)
[2022-03-19 15:08] LABS: Anti-Centromere B Ab <0.2 AI (0.0-0.9); Anti-Chromatin <0.2 AI (0.0-0.9); Anti-Jo <0.2 AI (0.0-0.9); Anti-Scleroderma-70 AB <0.2 AI (0.0-0.9); RNP Ab <0.2 AI (0.0-0.9); SJOGREN'S Anti-SS-A test < 0.2 AI (0.0-0.9); SJOGREN'S Anti-SS-B test < 0.2 AI (0.0-0.9); Smith Ab <0.2 AI (0.0-0.9)
[2022-03-19 16:09] LABS: Cytoplasmic Ab (C-ANCA) <1:20 titer (Neg:<1:20); Endomysial Antibody IgA Negative (Negative); Immunoglobulin A 302 mg/dL (87-352)
[2022-03-19 20:32] LABS: Perinuclear Ab (P-ANCA) <1:20 titer (Neg:<1:20); t-Transglutaminase IgA <2 U/mL (0-3)
[2022-03-21 13:24] LABS: Anti-dsDNA Ab 1 IU/mL (0-9)
== END | disposition home or self-care (01) ==
PROVIDERS: PCP Internal Medicine; Referring Provider Nurse Practitioner Adult Health; Visit Provider Nurse Practitioner Adult Health
DX: R10.819 Abdominal tenderness, unspecified site (principal); K58.2 Mixed irritable bowel syndrome; R11.10 Vomiting, unspecified
CPT/HCPCS: 36415; 80053; 82150; 82784; 83516; 83690; 85025; 85652; 86140; 86225; 86235; 86255; 86256

== ENCOUNTER 2022-03-28 14:12 | Emergency (ER) | payer MEDICAID, SELFPAY ==
[2022-03-28 14:14] VITALS: BP 148/112; PULSE 125; RESP 18; TEMP 37; O2SAT 90; BMI 42.0
== END 2022-03-28 15:00 | disposition left against medical advice (07) ==
LOC: ED 15:13
PROVIDERS: PCP Internal Medicine
DX: J10.1 Influenza due to other identified influenza virus with other respiratory manifestations (principal); Z53.21 Procedure and treatment not carried out due to patient leaving prior to being seen by health care provider

== ENCOUNTER → 2022-04-01 | Outpatient (CLI) | payer MEDICAID, SELFPAY ==
--- NOTE | 2022-04-01 08:07 | CT_ITS ---
STUDY: CT Abdomen And Pelvis W/ Contrast Injection 04/01/2022 5:50 PM REASON FOR EXAM: Female, 27 years old. ABDOMINAL PAIN chronic vomiting, abd pain/tenderness,rectal bleed -- oral and iv TECHNIQUE: Transaxial images were obtained with oral contrast, and with Oral and amp; IV Readi-CAT and amp; 100mL Isovue-370 intravenous contrast. Individualized dose optimization techniques were used for this CT. COMPARISON: 01.14.20. FINDINGS: The visualized lung bases are unremarkable. The visualized portions of the heart are within normal limits. There is decreased attenuation of the liver consistent with steatosis. There is non-visualization of the gallbladder, which may be secondary to either contraction or a prior cholecystectomy. Unremarkable spleen. Unremarkable pancreas. Prior noted hepatic lesion is not clearly noted today. Unremarkable bilateral adrenal glands. No acute findings of the right kidney. No acute findings of the left kidney. Unremarkable visualized stomach. Unremarkable small intestine. Unremarkable colon. The appendix is visualized and appears unremarkable. There are no acute findings of the abdominal aorta. Unremarkable inferior vena cava. Subcentimeter mesenteric lymph nodes. Unremarkable urinary bladder. There is an umbilical hernia containing fat. Unremarkable osseous structures. CT/Abdomen/Pelvis WITH Contrast IMPRESSION: (NOT LISTED IN ORDER OF SIGNIFICANCE) Fatty liver. Other findings as above. Electronically Signed: Douglas Kaplan MD at 17:59 [facility] ,
== END | disposition home or self-care (01) ==
LOC: CT 08:06
PROVIDERS: PCP Internal Medicine; Referring Provider Nurse Practitioner Adult Health; Visit Provider Nurse Practitioner Adult Health
DX: R11.10 Vomiting, unspecified (principal); R10.819 Abdominal tenderness, unspecified site; K62.5 Hemorrhage of anus and rectum
CPT/HCPCS: 74177; Q9967

== ENCOUNTER 2022-04-10 06:07 | Day surgery (SDC) | payer MEDICAID, SELFPAY ==
--- NOTE | 2022-04-10 06:30 | EGD_PTH ---
PATIENT: GENET TAY LOC: EN U#:[id number] AGE/SX: 27/F ROOM: RE04/10/[address]: Dr. Chaim Law DO : 1995 BED: DIS: 04/10/2022 SPEC #: [id number] RECD: 04/10/22 13:19 STATUS: STEFFEN REGonzalez #: [id number] ALENA: 04/10/22 06:[address]: Chaim Law DEPT: SURGICAL PATHOLOGY RECD BY: Nathalie Webster ENTERED: 04/11/22 09:04 SP TYPE: EGD BIOPSY [facility] DR: Dr. Sergio Rodriges MD Tissues: A - Duodenum, NOS B - Pylorus C - Gastric mucous membrane D - Esophagus, NOS Procedures: Special Stain Group II Surgery Specimen Level IV Alcian Blue/PAS (control) HEADER OPERATION: EGD ([facility] biopsy PRE-OP DIAGNOSIS: Chronic vomiting, irritable bowel syndrome, abdominal tenderness, blood per rectum TISSUE SUBMITTED: A ? Duodenal biopsy, B ? Pylorus biopsy, C ? Antrum biopsy for histo and H.?pylori, D ? Distal esophagus biopsy MICROSCOPIC DIAGNOSIS A. Duodenum, biopsy: No pathologic change. B. Gastric pylorus, biopsy: Chronic inflammation. C. Gastric antrum, biopsy: Chronic gastritis. See comment. D. Distal esophagus, biopsy: Gastroesophageal junctional mucosa with focal changes of reflux. Mild chronic inflammation. No evidence of goblet cell metaplasia. See comment. AM:danna 04/15/2022 COMMENT C. The results of immunohistochemistry for Helicobacter pylori will be reported separately ([id number]). D. Alcian blue/PAS stain with matched control supports the above diagnosis. MICROSCOPIC DESCRIPTION Slides are reviewed. GROSS DESCRIPTION A - Received in fixative is one container labeled with the patient's name and designated duodenal biopsy. The specimen consists of multiple irregular fragments of light rios soft tissue that in aggregate measure 1 x 0.5 x 0.1 cm. The specimen is totally submitted in one cassette. B - Received in fixative is one container labeled with the patient's name and designated pylorus biopsy. The specimen consists of two irregular fragments of light rios soft tissue that in aggregate measure 0.8 x 0.4 x 0.1 cm. The specimen is totally submitted in one cassette. C - Received in fixative is one container labeled with the patient's name and designated antrum biopsy. The specimen consists of two irregular fragments of light rios soft tissue that in aggregate measure 0.5 x 0.5 x 0.1 cm. The specimen is totally submitted in one cassette. D - Received in fixative is one container labeled with the patient's name and designated distal esophagus biopsy. The specimen consists of multiple irregular fragments of light rios soft tissue that in aggregate measure 1 x 0.5 x 0.1 cm. The specimen is totally submitted in one cassette. / SJ:rg 04/11/2022 TC:3 CPT: 32935 x4, 07188
--- NOTE | 2022-04-10 06:30 | IMM_PTH ---
PATIENT: GENET TAY LOC: EN U#:[id number] AGE/SX: 27/F ROOM: RE04/10/[address]: Dr. Chaim Law DO : 1995 BED: DIS: 04/10/2022 SPEC #: [id number] RECD: 04/11/22 08:47 STATUS: STEFFEN REQ #: [id number] ALENA: 04/10/22 06:[address]: Chaim Law DEPT: IMMUNOHISTOCHEMISTRY RECD BY: Mesha Eller ENTERED: 04/11/22 08:48 SP TYPE: IMMUNO OTHR DR: Dr. Sergio Rodriges MD Tissues: C - Stomach, NOS Procedures: H Pylori (initial) PHYSICIAN & INSTITUTION [place] [id number] SPECIMEN INFORMATION: Tissue Source: C ? Antrum biopsy Clinical Info: Chronic vomiting, irritable bowel syndrome, abdominal tenderness, blood per rectum Specimen Number: [id number] CPT code: 42147 METHODOLOGY: Deparaffinized sections of prefer/formalin-fixed tissue or PAP/DQ stained slides are incubated with monoclonal/polyclonal antibodies/oligonucleotide probes. Localization is made via biotin free immunoperoxidase method. Appropriate controls are performed and reacted as expected. Results on target cell population are indicated in the following table: RESULTS: ANTIBODY / CLONE RESULT Block C H Pylori (polyclonal) negative These tests were developed and their performance characteristics determined by [facility]. They may not have been cleared or approved by the U.S. Food and Drug Administration. The FDA has determined that such clearance or approval is not necessary. The above immunohistochemical/dualISH markers are ordered and reviewed by the Pathologist. INTERPRETATION: C. Antrum, biopsy: Negative for Helicobacter pylori organisms. AM:danna 04/15/2022
--- NOTE | 2022-04-10 06:34 | HP.PCM_ITS ---
History and Physical Date of Admission: 04/10/22 AME TAY, is a 27 F who presents to the office today for cyclical vomiting. Started in 2019. Goes away for a couple of months. She might vomit every day, might last for a week or two, then ok for a week or two. Vomits as soon as wakes up. She has nausea when she awakes on those days. Only rarely occurs later in the day. Feels fine once she vomits. No hematemesis. No dysphagia. Sometimes feels full quickly. Has heartburn all the time. Reports retrosternal burning. No relief with TUMS. Doesn't think omeprazole 40 mg daily helped either. When the vomiting began she recalls being told it might be a peptic ulcer. She hasn't had an EGD. Had colonoscopy in 2016 Reports bowel issues my whole life. Dx of IBS. Stool is either hard or liquid, can have multiple BMs per day. No nocturnal BMs. Intermittently sees bright red blood per rectum, says this started age 13. Some cramping before BMs, relieved with BM. She is diabetic, on metformin 2013 cholecystectomy Smokes 1/2-1 ppd. Has used marijuana intermittently over the years; currently uses it twice a day. Last meth use was 04/17/2020. Vomiting started month before she got clean from meth. Wasn't smoking marijuana then, resumed marijuana 06/2021. 2020 US abd liver vascular: for questionable vascular malformation seen on US, negative except for fatty liver ROS Const Constitutional: No fatigue ENT ENT: No difficulty swallowing Gastro GI: Positive for abdominal pain, change in bowel habits, cramping, diarrhea, heartburn, Blood in stool, nausea/dyspepsia and vomiting; No belching, bloating, change in stool character, coffee ground emesis, constipation, difficulty swallowing, feeling full early, excessive flatus, incontinent of stools, Vomiting blood/hematemesis, loose stools, Black,tarry stools, pain with swallowing or other Musc Musculoskeletal: No joint pain Skin Skin: No yellowing of the eye or itchy eyes Psych Psychiatric: No anxiety and No depression Endo Endocrine: No fatigue Aller/Imm Allergy/Immunologic: No itchy eyes Yousif/Lymp Hematologic/Lymphatic: No easy bleeding or easy bruising Exam Const General: cooperative and comfortable Nutritional Appearance: obese Orientation: alert, awake and oriented x3 [facility] Head: normal to inspection Eyes Conjunctivae: conjunctivae normal Sclera: sclerae normal Resp Effort & Inspection: normal respiratory effort GI Inspection: normal to inspection Palpation: soft, no hepatosplenomegaly, no masses and tender in the epigastrum, in the LLQ, in the RLQ and in the LUQ Skin General: no rashes or lesions noted and no jaundice Neuro Gait: normal gait Quality Reporting Tobacco Screening (CMS 138) Smoking Status: Current every day smoker Assessment and Plan Assessment and Plan (1) Chronic vomiting: ?Status:?Chronic ?Plan: 27 yr old female with cyclical vomiting, started before using marijuana. The cyclical vomiting is the most pressing issue for her. She also has alternating constipation and diarrhea, rectal bleeding, heartburn, abd pain, abd tenderness on exam. Case discussed with Dr Ani GREEN abd pel w/ oral and IV contrast EGD to evaluate the vomiting,heartburn,early satiety; prefers to hold off on colonoscopy at this time; f/u 2 wks later in office Gastric emptying study (2) Irritable bowel syndrome with alternating bowel habits: ?Status:?Acute ?Plan: as above (3) Abdominal tenderness: ?Status:?Acute ?Plan: as above (4) Blood per rectum: ?Status:?Acute ?Plan: as above (5) Early satiety: ?Status:?Acute ?Plan: as above ? ? ? Orders: Orders Comprehensive Metabolic Profil 03/13/22 K58.2 - Mixed irritable bowel s yndrome, R11.10 - Vomiting, unspecified ? CRP 03/13/22 K58.2 - Mixed irritable bowel s yndrome, R11.10 - Vomiting, unspecified ? CBC W/Diff, Automated 03/13/22 K58.2 - Mixed irritable bowel s yndrome, R11.10 - Vomiting, unspecified ? Erythrocyte Sed Rate 03/13/22 K58.2 - Mixed irritable bowel s yndrome, R11.10 - Vomiting, unspecified ? VICTOR M Comprehensive Panel 03/13/22 K58.2 - Mixed irritable bowel s yndrome, R11.10 - Vomiting, unspecified ? ANCA 03/13/22 K58.2 - Mixed irritable bowel s yndrome, R11.10 - Vomiting, unspecified ? Celiac Disease Profile 03/13/22 K58.2 - Mixed irritable bowel s yndrome, R11.10 - Vomiting, unspecified ? Miscellaneous Lab Procedure 03/13/22 K58.2 - Mixed irritable bowel s yndrome, R11.10 - Vomiting, unspecified ? Amylase 03/13/22 R10.819 - Abdominal tenderness, unspecified site ? Lipase 03/13/22 R10.819 - Abdominal tenderness, unspecified site ? Abdomen/Pelvis WITH Contrast 03/13/22 K62.5 - Hemorrhage of anus and rectum, R10.819 - Abdominal tenderness, unspecified site, R11.10 - Vomiting, unspecified ? Gastric Emptying Study 03/13/22 R11.10 - Vomiting, unspecified, R68.81 - Early satiety ? Medications: Discontinued lansoprazole ?? Discontinued Reason:? Pt no longer taking 30 mg? PO DAILY 60 caps 2RF ? ? I have examined the patient and the H&P has been reviewed. There are no clinical changes since date of exam.
[2022-04-10 06:36] LABS: Internal QC Validated? YES +Cl - CLEAR BKGD; Pregnancy, Urine Negative Negative
[2022-04-10 06:38] VITALS: BP 131/96; PULSE 93; RESP 17; TEMP 36.6; O2SAT 93; BMI 41.8
[2022-04-10] MEDS: Lactated Ringers 1,000 ML 15 ML IV (06:38)
[2022-04-10 07:20] VITALS: BP 124/93; BP 131/96; PULSE 87; RESP 16; TEMP 36.3; O2SAT 94
[2022-04-10 07:25] VITALS: BP 111/85; BP 131/96; PULSE 93; RESP 16; O2SAT 93
--- NOTE | 2022-04-10 07:27 | OP.EGD_ITS ---
Patient Name: Musa Cobb Procedure Date: 04/10/2022 6:57 AM Date of : 1995 Age: 27 Procedure: Upper GI endoscopy Indications: Functional Dyspepsia, Failure to respond to medical treatment Providers: Chaim Law DO Medicines: Monitored Anesthesia Care Patient Profile: This is a 27 year old female. Refer to note in patient chart for documentation of history and physical. Patient has symptoms of chronic abdominal distention, chronic epigastric abdominal pain and chronic dyspepsia. Complications: No immediate complications. Procedure: Pre-Anesthesia Assessment: - Prior to the procedure, a History and Physical was performed, and patient medications and allergies were reviewed. The patient is competent. The risks and benefits of the procedure and the sedation options and risks were discussed with the patient. All questions were answered and informed consent was obtained. Patient identification and proposed procedure were verified by the physician in the pre-procedure area. Mental Status Examination: alert and oriented. Airway Examination: normal oropharyngeal airway and neck mobility. Respiratory Examination: clear to auscultation. CV Examination: normal. Prophylactic Antibiotics: The patient does not require prophylactic antibiotics. Prior Anticoagulants: The patient has taken no previous anticoagulant or antiplatelet agents. ASA Grade Assessment: II - A patient with mild systemic disease. After reviewing the risks and benefits, the patient was deemed in satisfactory condition to undergo the procedure. The anesthesia plan was to use monitored anesthesia care (MAC). Immediately prior to administration of medications, the patient was re-assessed for adequacy to receive sedatives. The heart rate, respiratory rate, oxygen saturations, blood pressure, adequacy of pulmonary ventilation, and response to care were monitored throughout the procedure. The physical status of the patient was re-assessed after the procedure. After obtaining informed consent, the endoscope was passed under direct vision. Throughout the procedure, the patient's blood pressure, pulse, and oxygen saturations were monitored continuously. The gastroscope was introduced through the mouth, and advanced to the second part of duodenum. The upper GI endoscopy was accomplished without difficulty. The patient tolerated the procedure well. Scope In: 7:06:50 AM Scope Out: 7:13:06 AM Total Procedure Duration Time 0 hours 6 minutes 16 seconds Findings: Non-severe esophagitis with no bleeding was found 35 to 36 cm from the incisors. Biopsies were taken with a cold forceps for histology. Verification of patient identification for the specimen was done. Estimated blood loss was minimal. A medium-sized hiatal hernia was present. Patchy mildly erythematous mucosa without bleeding was found in the gastric antrum. There was also bile gastritis seen. Biopsies were taken with a cold forceps for histology. Verification of patient identification for the specimen was done. Estimated blood loss was minimal. Localized mild inflammation characterized by erythema was found at the pylorus. Biopsies were taken with a cold forceps for histology. Verification of patient identification for the specimen was done. Estimated blood loss was minimal. Patchy mildly erythematous mucosa without active bleeding and with no stigmata of bleeding was found in the duodenal bulb, in the first portion of the duodenum and in the second portion of the duodenum. Biopsies were taken with a cold forceps for histology. Verification of patient identification for the specimen was done. Estimated blood loss was minimal. Impression: - Non-severe reflux esophagitis. Biopsied. - Medium-sized hiatal hernia. - Erythematous mucosa in the antrum. Biopsied. - Gastritis. Biopsied. - Erythematous duodenopathy. Biopsied. Recommendation: - Discharge patient to home. - Resume previous diet. - Continue present medications. - Await pathology results. - Use Protonix (pantoprazole) 40 mg PO BID for 8 weeks. - Gastric emptying study Procedure Code(s): --- Professional --- 50524, Esophagogastroduodenoscopy, flexible, transoral; with biopsy, single or multiple CPT copyright 2017 [employer]. All rights reserved. The codes documented in this report are preliminary and upon professional fee coder review may be revised to meet current compliance requirements. Chaim Law DO 04/10/2022 7:27:06 AM This report has been signed electronically. Number of Addenda: 0 Note Initiated On: 04/10/2022 6:57 AM
[2022-04-10 07:30] VITALS: BP 117/81; BP 131/96; PULSE 82; RESP 16; O2SAT 93
--- NOTE | 2022-04-10 07:30 | OP.CCLET_ITS ---
04/10/2022 Sergio Rodriges MD [address] [place] [address] [place] [address] Re : Upper GI endoscopy procedure for Musa Cobb Dear Dr. Rodriges This procedure was performed on March. My impressions and recommendations are as follows: Impressions : - Non-severe reflux esophagitis. Biopsied. - Medium-sized hiatal hernia. - Erythematous mucosa in the antrum. Biopsied. - Gastritis. Biopsied. - Erythematous duodenopathy. Biopsied. Recommendations : - Discharge patient to home. - Resume previous diet. - Continue present medications. - Await pathology results. - Use Protonix (pantoprazole) 40 mg PO BID for 8 weeks. - Gastric emptying study My findings are described in the full procedure note, which is enclosed. If I can be of further assistance, please feel free to contact me at . Sincerely, Chaim Law, 04/10/2022 7:27:06 AM This report has been signed electronically.
[2022-04-10 07:35] VITALS: BP 119/82; BP 131/96; PULSE 79; RESP 16; TEMP 36.3; O2SAT 93
[2022-04-10 08:01] VITALS: BP 131/96
[2022-04-10 09:06] LABS: Bedside Glucose 122 mg/dL (74-106)
== END 2022-04-10 08:03 | disposition home or self-care (01) ==
LOC: EN 06:07 → AC 06:08
PROVIDERS: Anesthesiology; PCP Internal Medicine; Referring Provider Internal Medicine; Visit Provider Internal Medicine Gastroenterology
PROC: 0DJ08ZZ Inspection of Upper Intestinal Tract, Via Natural or Artificial Opening Endoscopic (ICD-10-PCS; CPT 43235; principal; 2022-04-10 06:25)
DX: K21.00 Gastro-esophageal reflux disease with esophagitis, without bleeding (principal); E11.9 Type 2 diabetes mellitus without complications; K31.89 Other diseases of stomach and duodenum; K29.50 Unspecified chronic gastritis without bleeding; F17.200 Nicotine dependence, unspecified, uncomplicated; K44.9 Diaphragmatic hernia without obstruction or gangrene; E66.9 Obesity, unspecified; I10 Essential (primary) hypertension; Z79.84 Long term (current) use of oral hypoglycemic drugs; Z79.899 Other long term (current) drug therapy
CPT/HCPCS: 43239; 81025; 82962; 88305; 88313; 88342; J7120; J2405

== ENCOUNTER 2022-08-15 20:23 | Emergency (ER) | payer MEDICAID, SELFPAY ==
[2022-08-15 20:24] VITALS: BP 188/164; PULSE 108; RESP 18; TEMP 35.9; O2SAT 100; BMI 40.1
--- NOTE | 2022-08-15 20:40 | EDS_ITS ---
HPI History of Present Illness Chief Complaint: Anxiety Informant: patient and parent (Mother) Onset/Context/Timing Onset: Today Context: Gradual Onset Timing: Continuous Narrative Narrative: Patient feeling anxious all day, gradual in onset no trigger, but this is typical for her according to her and her mother. Given this history, she takes haloperidol 5 mg prn for it, she took 1 dose today. She does not take this daily. She states she has taken maybe 60 doses in her life, over the past year or 2. She usually does not have any major issues with it, and she has not been taking it in the last couple days until she needed it today. It did not seem to help and she was feeling worse so she took one of her mom's gabapentin, she had no additional symptoms but is concerned that she feels poorly, jittery, and restless although she feels tired like she needs to go to bed she states she cannot because she feels so restless and just wants to sleep. She denies any suicidal ideation or other psychiatric symptoms. States she has taken her usual medications, no drugs, no other vadd-mac-dfcnqkc medications at all. [facility] Medical History Anxiety Chronic vomiting Depression Diabetes Diabetes Gastric reflux Gastric ulcer GERD (gastroesophageal reflux disease) History of echocardiogram History of pneumonia History of ulceration Hypertension Marijuana use Morbid obesity Shortness of breath on exertion Smoker Tobacco abuse Type 2 diabetes mellitus Ulcer Wears glasses Home Medications lamotrigine 200 mg tablet (Lamictal) 150 mg PO BID 12/05/20 [History Last Taken Unknown] blood sugar diagnostic (OneTouch Ultra Test strips) #100 ea 08/19/21 [Rx Last Taken Unknown] blood-glucose meter (Infinite.lyuch Ultra2 Meter) #1 ea 08/19/21 [Rx Last Taken Unknown] lancets (Simple-FillTouch UltraSoft Lancets) #100 ea 08/19/21 [Rx Last Taken Unknown] haloperidol 5 mg tablet 5 mg PO PRN PRN Anxiety 04/09/22 [History Last Taken Unknown] lisinopril 10 mg tablet 10 mg PO DAILY #90 tabs 04/21/22 [Rx Last Taken Unknown] metformin 500 mg tablet 500 mg PO BID #180 tabs 04/24/22 [Rx Last Taken Unknown] omeprazole 40 mg capsule,delayed release 40 mg PO DAILY #90 caps 03/22/23 [Rx Last Taken Unknown] colestipol 1 gram tablet 1 g PO QHS bile reflux #90 tabs 07/11/22 [Rx Last Taken Unknown] Allergy/AdvReac Type Severity Reaction Status Date / Time amoxicillin [Amoxicillin] Allergy Hives Verified 08/15/22 20:24 propranolol HCl Allergy Hives Verified 08/15/22 20:24 [From Inderal [place]] Family History (Reviewed 07/11/22 @ 08:36 by Maryann Hussein INFORMATION ASSURANCE ENGINEER, INFORMATION ASSURANCE ENGINEER-C) Unknown Diabetes Multiple sclerosis cousin Mother Diabetes Hypertension Grandmother Diabetes Hypertension Aunt Multiple sclerosis Surgical History History of cholecystectomy Hx of colonoscopy Social History Smoking Status: Current every day smoker tobacco type: cigarettes Tobacco: How many years used: 7 alcohol intake: never substance use type: former substance user Date of last use: 04/16/2020, marijuana and methamphetamine caffeine: Yes what type of physical activity do you participate in: walking seatbelt use: always do you feel safe at home: Yes additional social history: unemployed ROS ROS ED Constitutional Constitutional ED: Reports fatigue; Denies chills or fever(s) Eyes Eyes: Denies change in vision or diplopia ENT ENT ED: Denies rhinorrhea or sore throat Cardiovascular Cardiovascular: Denies chest pain or palpitations Respiratory/Chest Respiratory/Chest: Denies cough or dyspnea Gastrointestinal Gastrointestinal: Denies abdominal pain, diarrhea, nausea or vomiting Genitourinary Genitourinary ED: Denies dysuria or hematuria Musculoskeletal Musculoskeletal: Denies back pain or neck pain Integumentary Denies abscess or rash Neurologic Neurologic: Reports other Details: Restlessness ; Denies headache(s), paresthesias or weakness Psychiatric Psychiatric: Reports anxiety; Denies suicidal thoughts EXAM Physical Exam Const Vital Signs: 08/15/22 20:24 Temperature 96.7 F L Temperature Source Temporal Pulse Rate 108 H Respiratory Rate 18 Blood Pressure 188/164 H Blood Pressure Mean 172 Pulse Ox 100 Oxygen Delivery Method Room Air Positive well nourished and well developed General Appearance ED: well developed and NAD HEENT Reports moist mucous membranes normocephalic and atraumatic Eyes PERRL and EOMs intact bilaterally Neck full ROM and supple Resp normal respiratory effort and clear to auscultation bilaterally Cardio regular rate, regular rhythm and no murmurs GI non-tender and non-distended Auscultation: normoactive bowel sounds Palpation: soft Back/Spine no CVA tenderness General Back: other FROM Extremity normal to inspection General Extremety ED: Negative for edema, pulses abnormal or tenderness General Extremity: Negative for edema or pulses abnormal Neuro oriented x3, CN's II-XII intact bilaterally and no sensory deficits noted Sensorium / Orientation: awake and alert Motor Exam: strength 5/5 throughout Psych Psych Narrative: Thought processes normal. Anxious and tearful at times. A little restless, but cooperative. Skin no rashes or lesions noted and no wounds MDM MDM MDM Narrative Medical decision making narrative: Patient is having anxiety, possibly some akathisia although her symptoms are fairly nonspecific. Given that she is also hypertensive, mildly tachycardic, and having nonspecific symptoms, I obtained a TSH in addition to basic labs. Your TSH was normal just over a year ago, but today it is high at almost 9. On reexamination prior to any treatment, she said that she was actually feeling much better just resting here in the emergency department. I had ordered Ativan in addition to Cogentin IV, considering the possibility that she was having some akathisia from the haloperidol although this is less likely since she has taken it on occasion and never had the symptoms before with. She did get the medications and felt better still. I am comfortable with her going home. To decipher the significance of the TSH, I am going to add free T4 and T3 and have her follow-up with her doctor, I do not think she is having acute symptoms of hypothyroidism, so I will hold off on starting her on any long-term medications until she follows up which we discussed and she is comfortable with that. She does not have severe fatigue, cold intolerance, or severe constipation, she does have a history of irritable bowel syndrome and is constipated often due to that. When she was feeling better I did have nursing recheck her vital signs, her heart rate is 64 and blood pressure is 126/82, reassuring that her abnormal vital signs were likely a result of her anxiety, and not causing her symptoms. Lab Data Attestation: I reviewed the patient's lab results. Labs: Laboratory Results - last 24 hr 08/15/22 08/15/22 20:56 20:56 WBC 13.1 H RBC 5.02 Hgb 14.5 Hct 44.1 MCV 87.8 MCH 28.9 MCHC 32.9 RDW Std Deviation 43.8 RDW Coeff of Anila 13.7 Plt Count 374 MPV 9.6 Immature Gran % (Auto) 0.400 Neut % (Auto) 53.0 Lymph % (Auto) 31.8 [place] % (Auto) 7.1 Eos % (Auto) 6.9 H Baso % (Auto) 0.8 Absolute Neuts (auto) 7.0 Absolute Lymphs (auto) 4.16 Nucleated RBC % 0 Sodium 138 Potassium 3.6 Chloride 104 Carbon Dioxide 25.0 Anion Gap 9 BUN 9 Creatinine 0.97 Estim Creat Clear Calc 72.70 Est GFR (MDRD) Af Amer 89 Est GFR (MDRD) Non-Af 74 BUN/Creatinine Ratio 9.3 L Glucose 115 H Calcium 9.2 TSH 8.93 H Discharge Plan Triage Chief Complaint: Anxiety ED Provider: Silvio Villafana Dx/Rx/DC Orders Clinical Impression: Anxiety, Akathisia, Elevated TSH, Episode of hypertension Instructions: Diagnosing a Thyroid Problem, ED Anxiety Reaction Prescriptions: No Action lamotrigine [Lamictal] 200 mg tablet 150 mg PO BID omeprazole 40 mg capsule,delayed release(DR/EC) 40 mg PO DAILY Qty: 90 2RF Rx Instructions: Take 30 minutes before breakfast colestipol 1 gram tablet 1 g PO QHS Qty: 90 1RF Rx Instructions: wait at least one hour after other meds to take this haloperidol 5 mg tablet 5 mg PO PRN PRN (Reason: Anxiety) (DME) blood-glucose meter [OneTouch Ultra2 Meter] [facility] See Rx Instructions .ROUTE .MEDSUPPLY Qty: 1 0RF Rx Instructions: Check blood sugar daily (DME) OneTouch Ultra Test Strip See Rx Instructions .ROUTE .MEDSUPPLY Qty: 100 3RF Rx Instructions: Check blood sugar daily (DME) lancets [OneTouch UltraSoft Lancets] [facility] See Rx Instructions .ROUTE .MEDSUPPLY Qty: 100 3RF Rx Instructions: Check blood sugar daily lisinopril 10 mg tablet 10 mg PO DAILY Qty: 90 1RF metformin 500 mg tablet 500 mg PO BID Qty: 180 1RF Primary Care Provider: Sergio Rodriges Referrals: Sergio Rodriges MD [Primary Care Provider] - As soon as possible Disposition Disposition: Home, Self Care
[2022-08-15 21:08] LABS: Absolute Lymphocyte Count 4.16 X10^3/uL (0.83-4.51); Basophil% 0.8 % (0-1); Eosinophils% 6.9 % (0-5); Hematocrit 44.1 % (37-47); Hemoglobin 14.5 g/dL (12.0-15.0); Lymphocyte # 4.16 X10^3/ul (0.83-4.51); Lymphocyte % 31.8 % (19-41); Mean Corp Hgb Conc 32.9 g/dL (32-36); Mean Corpuscular Hgb 28.9 pg (27.0-32.0); Mean Corpuscular Volume 87.8 fL (81-99); Mean Platelet Vol. 9.6 fl (6.2-12.0); Monocyte# 0.93 X10^3/uL; Monocyte% 7.1 % (0-10); NRBC Flagged by Analyzer 0 % (0-5); Neutrophil # 6.96 X10^3/uL (2.7-7.7); Platelet Count 374 K/mm3 (150-450); RBC Distribution Width CV 13.7 % (11.6-14.6); RBC Distribution Width SD 43.8 fl (35.1-43.9); Red Blood Count 5.02 M/mm3 (4.2-5.4); White Blood Count 13.1 K/mm3 (4.4-11.0)
[2022-08-15] MEDS: LORazepam 2 MG/ML Syringe 1 MG IV (21:29)
[2022-08-15 21:34] LABS: Anion Gap 9 (5-15); BUN 9 mg/dL (7-18); BUN/Creat Ratio 9.3 RATIO (10-20); Calcium,Total 9.2 mg/dL (8.5-10.1); Chloride 104 mmol/L (98-107); Creatinine, Serum 0.97 mg/dL (0.55-1.02); EST Glomerular Filtration Rate 74 mL/min (>60); Est Glom Filt Rate - Afr Amer 89 mL/min (>60); Glucose 115 mg/dL (74-106); Potassium 3.6 mmol/L (3.5-5.1); Sodium Level 138 mmol/L (136-145); Thyroid Stim Hormone (TSH) 8.93 uIU/mL (0.358-3.74)
[2022-08-15 21:58] VITALS: BP 126/82; PULSE 64; PULSE 68; RESP 15; O2SAT 97
[2022-08-15 22:13] LABS: Free T3 3.4 pg/mL (2.18-3.98); T4 Free Direct 1.18 ng/dL (0.76-1.46)
== END 2022-08-15 22:12 | disposition home or self-care (01) ==
PROVIDERS: Emergency Provider Emergency Medicine; PCP Internal Medicine; Visit Provider Emergency Medicine
DX: F41.9 Anxiety disorder, unspecified (principal); E11.9 Type 2 diabetes mellitus without complications; I10 Essential (primary) hypertension; F17.210 Nicotine dependence, cigarettes, uncomplicated; G25.71 Drug induced akathisia; R94.6 Abnormal results of thyroid function studies; Z79.899 Other long term (current) drug therapy; Z79.84 Long term (current) use of oral hypoglycemic drugs; K21.9 Gastro-esophageal reflux disease without esophagitis
CPT/HCPCS: 80048; 84439; 84443; 84481; 85025; 99283; A4216

== ENCOUNTER → 2022-10-03 | Outpatient (CLI) | payer MEDICAID, SELFPAY ==
[2022-10-03 12:45] LABS: T4 Free Direct 1.01 ng/dL (0.76-1.46); Thyroid Stim Hormone (TSH) 2.35 uIU/mL (0.358-3.74)
[2022-10-04 04:07] LABS: Thyroid Peroxidase AB < 9 IU/mL (0-34)
== END | disposition home or self-care (01) ==
LOC: BIMLAB 10:40
PROVIDERS: PCP Internal Medicine; Referring Provider Internal Medicine; Visit Provider Internal Medicine
DX: I10 Essential (primary) hypertension (principal); E11.69 Type 2 diabetes mellitus with other specified complication; E03.8 Other specified hypothyroidism
CPT/HCPCS: 84439; 84443; 86376

== ENCOUNTER → 2023-04-29 | Outpatient (CLI) | payer MEDICAID, SELFPAY ==
--- OUTSIDE RECORDS SUMMARY | 2023-04-29 12:02 | XMS RPT_ITS | CCD ---
Author Name Unknown Address [id number] [place] [address] Organization [facility] Care Team Providers Care Commercial Ocean Clammer Name Role Phone Sergio Rodriges MD Primary Care Provider [phone] DR ALEJANDRA HARRIS MD Primary Care Physician KIMBERLY PALMER., DR. ALEJANDRA Robbins Primary Care Unavaila MAHENDRA Soto Referring Unavailable MAHENDRA FAJARDO Admitting Unavailable QUYEN GAFFNEY DO Attending Unavailable Sergio Rodriges MD Primary Care Provider [phone] SERGIO RODRIGES Primary Care Unavailable SERGIO RODRIGES Primary Care Unavailable Allergies Allergy Classification Reported Allergen(s) Allergy Type Date of Onset Reaction(s) Facility (4 sources) Amoxicillin; Translations: [amoxicillin] Drug Allergy 01-17-2008 [facility] Work Phone: (4 sources) Propranolol; Translations: [propranolol] Drug Allergy 03-13-2011 [facility] Work Phone: Medications Current Medications Medication Drug Class(es) Dates Sig (Normalized) Sig (Original) albuterol MDI (90 mcg/inh) CFC free inhalation aerosol (1 source) Start: 03-31-2022 take 1 puff(s) by inhalation every four hours as needed for wheezing albuterol MDI (90 mcg/inh) CFC free inhalation aerosol 1 puff(s), Inhalation, q4h, PRN as needed for wheezing, # 18 gram(s), 0 Refill(s), Pharmacy: [facility] #[id number], 160, cm, 03/28/22 20:31:00 EST, Height Start Date: 03/31/22 Status: Ordered cefdinir 300 mg oral capsule (1 source) Cephalosporin Antibacterial Start: 03-31-2022 End: 04-07-2022 cefdinir 300 mg oral capsule Dose : 300 mg = 1 cap(s), Oral, q12h, X 7 day(s), # 14 cap(s), 0 Refill(s), 04/07/22 12:37:00 EST, Pharmacy: [facility] #[id number], 160, cm, 03/28/22 20:31:00 EST, Height, 106.2 Start Date: 03/31/22 Stop Date: 04/07/22 Status: Ordered haloperidol 0.5 mg oral tablet (1 source) Typical Antipsychotic Start: 03-29-2022 haloperidol 0.5 mg oral tablet Dose : 0.5 mg = 1 tab(s), Oral, PRN Anxiety, 0 Refill(s) Start Date: 03/29/22 Status: Ordered lamoTRIgine 150 mg oral tablet (2 sources) Mood Stabilizer, Anti-epileptic Agent Start: 03-28-2022 lamoTRIgine 150 mg oral tablet Dose : 150 mg = 1 tab(s), Oral, BID, # 180 tab(s), 0 Refill(s) Start Date: 03/28/22 Status: Ordered Completed/Discontinued Medications Medication Drug Class(es) Dates Sig (Normalized) Sig (Original) [id number] 200 actuat albuterol 0.09 mg/actuat metered dose inhaler (2 sources) beta2-Adrenergic Agonist Start: 08-17-2018 take 2 puff(s) by inhalation every four hours as needed for wheezing albuterol HFA (PROAIR HFA) 90 mcg/actuation inhaler Inhale 2 Puffs as instructed every 4 hours as needed for Wheezing/Shortnes s of Breath. 1 Inhaler 1 08/17/2018 Active Problems Active Problems Problem Classification Problem Date Documented Da te Episodic/Chronic Anxiety disorders (3 sources) Generalized anxiety disorder; Translations: [Generalized anxiety disorder] Onset: 03-29-2022 Chronic Blindness and vision defects (1 source) Visual impairment; Translations: [Unspecified visual loss] Chronic Diabetes mellitus without complication (1 source) Type 2 diabetes mellitus without complication; Translations: [Type 2 diabetes mellitus without complications] Onset: 03-29-2022 Chronic Disorders of lipid metabolism (2 sources) Dyslipidemia; Translations: [Hyperlipidemia, unspecified] Onset: 07-22-2012 07-22-2012 Chronic Essential hypertension (2 sources) Hypertensive disorder; Translations: [Essential (primary) hypertension] Onset: 08-21-2011 08-21-2011 Chronic Influenza (2 sources) Influenza; Translations: [Influenza due to other identified influenza virus with other respiratory manifestations] Onset: 03-29-2022 Episodic Mood disorders (1 source) Recurrent major depressive episodes, moderate 01-17-2020 Chronic Other and ill-defined heart disease (2 sources) Left ventricular hypertrophy; Translations: [Cardiomegaly] Onset: 07-22-2012 07-22-2012 Chronic Other lower respiratory disease (1 source) Cough; Translations: [Acute cough] 03-17-2023 Episodic Other nutritional; endocrine; and metabolic disorders (2 sources) Body mass index 30+ - obesity; Translations: [Obesity, unspecified] Onset: 01-07-2011 12-23-2012 Chronic Other nutritional; endocrine; and metabolic disorders (2 sources) Metabolic syndrome X; Translations: [Metabolic syndrome] Onset: 07-22-2012 07-22-2012 Chronic Pneumonia (except that caused by tuberculosis or sexually transmitted disease) (1 source) Pneumonia; Translations: [Pneumonia, unspecified organism] Onset: 03-28-2022 Episodic Residual codes; unclassified (1 source) Tobacco user; Translations: [Tobacco use] Onset: 03-29-2022 Episodic Substance-related disorders (1 source) Substance misuse behavior 01-17-2020 Episodic Past or Other Problems Problem Classification Problem Date Documented Da te Episodic/Chronic Diabetes mellitus without complication (2 sources) Prediabetes; Translations: [Prediabetes] Onset: 06-28-2018 06-28-2018 Episodic Headache; including migraine (3 sources) Headache; Translations: [Headache, unspecified headache type] Onset: 03-13-2011 Episodic Residual codes; unclassified (2 sources) FH: Hypertension; Translations: [Family history of ischemic heart disease and other diseases of the circulatory system] Onset: 07-23-2011 07-23-2011 Episodic Results Test Name Value Interpretation Reference Range Facil ity Vital Signs Date Time Vital Sign Value Performing Clinician Facility 03-17-2023 07:47-0500 Body temperature 98.8 [degF] Camille Bogner PA-C Work Phone: [facility] 03-17-2023 07:47-0500 Body weight 98.88 kg Camille Bogner PA-C Work Phone: [facility] 03-17-2023 07:47-0500 Diastolic blood pressure 81 mm[Hg] Camille Bogner PA-C Work Phone: [facility] 03-17-2023 07:47-0500 Heart rate 75 /min Camille Bogner PA-C Work Phone: [facility] 03-17-2023 07:47-0500 Respiratory rate 18 /min Camille Bogner PA-C Work Phone: [facility] 03-17-2023 07:47-0500 SaO2% (BldA) [Mass fraction] 98 % Camille Bogner PA-C Work Phone: [facility] 03-17-2023 07:47-0500 Systolic blood pressure 118 mm[Hg] Camille Bogner PA-C Work Phone: [facility] 03-31-2022 13:43-0500 Body temperature 98.06 [degF] MAHENDRA FAJARDO MAGNETIC DOCTOR-MUSIC ENGRAVER [facility] 03-31-2022 13:43-0500 Diastolic Blood Pressure Non-Invasive 94 1 MAHENDRA FAJARDO MAGNETIC DOCTOR-MUSIC ENGRAVER [facility] 03-31-2022 13:43-0500 Heart rate 101 /min MAHENDRA FAJARDO MAGNETIC DOCTOR-MUSIC ENGRAVER [facility] 03-31-2022 13:43-0500 Reason For Taking VItal Signs MAHENDRA FAJARDO MAGNETIC DOCTOR-MUSIC ENGRAVER [facility] 03-31-2022 13:43-0500 Respiratory rate 18 /min MAHENDRA FAJARDO MAGNETIC DOCTOR-MUSIC ENGRAVER [facility] 03-31-2022 13:43-0500 Systolic Blood Pressure Non-Invasive 143 1 MAHENDRA KAPPER MAGNETIC DOCTOR-MUSIC ENGRAVER [facility] 03-31-2022 11:48-0500 Heart rate 85 /min MAHENDRA KAPPER MAGNETIC DOCTOR-MUSIC ENGRAVER [facility] 03-31-2022 11:48-0500 Respiratory rate 16 /min MAHENDRA KAPPER MAGNETIC DOCTOR-MUSIC ENGRAVER [facility] 03-31-2022 11:30-0500 Body temperature 98.42 [degF] MAHENDRA KAPPER MAGNETIC DOCTOR-MUSIC ENGRAVER [facility] 03-31-2022 11:30-0500 Diastolic Blood Pressure Non-Invasive 90 1 MAHENDRA KAPPER MAGNETIC DOCTOR-MUSIC ENGRAVER [facility] 03-31-2022 11:30-0500 Heart rate 96 /min MAHENDRA KAPPER MAGNETIC DOCTOR-MUSIC ENGRAVER [facility] 03-31-2022 11:30-0500 Reason For Taking VItal Signs MAHENDRA KAPPER MAGNETIC DOCTOR-MUSIC ENGRAVER [facility] 03-31-2022 11:30-0500 Respiratory rate 18 /min MAHENDRA KAPPER MAGNETIC DOCTOR-MUSIC ENGRAVER [facility] 03-31-2022 11:30-0500 Systolic Blood Pressure Non-Invasive 139 1 MAHENDRA KAPPER MAGNETIC DOCTOR-MUSIC ENGRAVER [facility] 03-31-2022 10:39-0500 Heart rate 93 /min MAHENDRA KAPPER MAGNETIC DOCTOR-MUSIC ENGRAVER [facility] 03-31-2022 07:44-0500 Body temperature 98.06 [degF] MAHENDRA KAPPER MAGNETIC DOCTOR-MUSIC ENGRAVER [facility] 03-31-2022 07:44-0500 Diastolic Blood Pressure Non-Invasive 94 1 MAHENDRA SIERRAER MAGNETIC DOCTOR-MUSIC ENGRAVER [facility] 03-31-2022 07:44-0500 Heart rate 96 /min MAHENDRA RIGOER MAGNETIC DOCTOR-MUSIC ENGRAVER [facility] 03-31-2022 07:44-0500 Reason For Taking VItal Signs MAHENDRA RIGOER MAGNETIC DOCTOR-MUSIC ENGRAVER [facility] 03-31-2022 07:44-0500 Systolic Blood Pressure Non-Invasive 137 1 MAHENDRA KAPPER MAGNETIC DOCTOR-MUSIC ENGRAVER [facility] 03-31-2022 06:26-0500 Heart rate 96 /min MAHENDRA KAPPER MAGNETIC DOCTOR-MUSIC ENGRAVER [facility] 03-30-2022 20:04-0500 Heart rate 82 /min MAHENDRA KAPPER MAGNETIC DOCTOR-MUSIC ENGRAVER [facility] 03-30-2022 12:29-0500 Body temperature 97.16 [degF] MAHENDRA KAPPER MAGNETIC DOCTOR-MUSIC ENGRAVER [facility] 03-30-2022 09:36-0500 Body weight 106.2 kg MAHENDRA KAPPER MAGNETIC DOCTOR-MUSIC ENGRAVER [facility] 03-30-2022 05:50-0500 Body weight 165 kg MAHENDRA KAPPER MAGNETIC DOCTOR-MUSIC ENGRAVER [facility] 03-30-2022 03:35-0500 Heart rate 106 /min MAHENDRA KAPPER MAGNETIC DOCTOR-MUSIC ENGRAVER [facility] 03-29-2022 22:40-0500 Heart rate 99 /min MAHENDRA KAPPER MAGNETIC DOCTOR-MUSIC ENGRAVER [facility] 03-28-2022 20:31-0500 Body height 160 cm MAHENDRA SIERRAER MAGNETIC DOCTOR-MUSIC ENGRAVER [facility] 03-28-2022 20:31-0500 Body weight 106.4 kg MAHENDRA FAJARDO MAGNETIC DOCTOR-MUSIC ENGRAVER [facility] 03-28-2022 20:31-0500 Body weight 41.56 kg/m2 MAHENDRA SIERRAER MAGNETIC DOCTOR-MUSIC ENGRAVER [facility] 03-28-2022 15:47-0500 Body height 160 cm MAHENDRA FAJARDO MAGNETIC DOCTOR-MUSIC ENGRAVER [facility] 10-01-2021 15:44-0400 Body temperature 98.1 [degF] Issac Parmar MAGNETIC DOCTOR.MUSIC ENGRAVER Work Phone: [facility] 10-01-2021 15:44-0400 Body weight 121.75 kg Issac Parmar MAGNETIC DOCTOR.MUSIC ENGRAVER Work Phone: [facility] 10-01-2021 15:44-0400 Diastolic blood pressure 78 mm[Hg] Issac Ghulam MAGNETIC DOCTOR.MUSIC ENGRAVER Work Phone: [facility] 10-01-2021 15:44-0400 Heart rate 103 /min Issac Parmar MAGNETIC DOCTOR.MUSIC ENGRAVER Work Phone: [facility] 10-01-2021 15:44-0400 Respiratory rate 16 /min Issac Parmar MAGNETIC DOCTOR.MUSIC ENGRAVER Work Phone: [facility] 10-01-2021 15:44-0400 SaO2% (BldA) [Mass fraction] 97 % Issac Ghulam MAGNETIC DOCTOR.MUSIC ENGRAVER Work Phone: [facility] 10-01-2021 15:44-0400 Systolic blood pressure 126 mm[Hg] Issac Parmar MAGNETIC DOCTOR.MUSIC ENGRAVER Work Phone: [facility] Encounters Encounter Date Encounter Type Care Provider Facility Start: 03-17-2023 End: 03-17-2023 ambulatory SERGIO HILLZULEMAYoselin Facility:[facility] Start: 03-17-2023 End: 03-17-2023 Office outpatient visit 15 minutes Camille Hall PA-C Work Phone: [facility] Procedures Date Procedure Procedure Detail Performing Clinician Start: 06-28-2018 Adult depression screening assessment Issac Parmar MAGNETIC DOCTOR.MUSIC ENGRAVER Work Phone: Cholecystectomy MAHENDRA SCOTTY MAGNETIC DOCTOR-MUSIC ENGRAVER History of cholecystectomy Hx of cholecystectomy( Confirmed ) MAHENDRA SCOTTY MAGNETIC DOCTOR-MUSIC ENGRAVER Plan of Treatment Date Care Activity Detail Author Start: 12-12-2022 Influenza vaccination Influenza Vaccine (#1) [facility] Start: 10-01-2022 BP CONTROLLED (<130/80) BP CONTROLLED (<130/80) [facility] Start: 04-13-2022 Depression Assessment Depression Assessment [facility] Start: 12-12-2021 Influenza vaccination INFLUENZA (Season Ended) [facility] Start: 07-12-2021 PAP TESTING PAP TESTING [facility] Start: 05-07-2021 ANNUAL PCP TEAM CHRONIC DISEASE VISIT ANNUAL PCP TEAM CHRONIC DISEASE VISIT [facility] Start: 06-29-2019 Adult depression screening assessment DEPRESSION SCREENING [facility] Start: 11-14-2018 Urine microalbumin profile [facility] Start: 08-12-2017 HPV VACCINE (2 - 3-dose series) HPV VACCINE (2 - 3-dose series) [facility] Start: 02-07-2014 BP Controlled (<130/80) BP Controlled (<130/80) [facility] Start: 02-07-2010 PEDS TO ADULT TRANSITION ANNUAL ASSESSMENT PEDS TO ADULT TRANSITION ANNUAL ASSESSMENT [facility] Start: 2008 PEDS TO ADULT TRANSITION INITIAL DISCUSSION PEDS TO ADULT TRANSITION INITIAL DISCUSSION [facility] Start: 02-07-2002 PNEUMOCOCCAL (1 - PCV) PNEUMOCOCCAL (1 - PCV) [facility] Start: 02-07-2002 Pneumococcal vaccination Pneumococcal Vaccine (1 - PCV) [facility] Start: 02-07-2001 COVID-19 VACCINE (#1) COVID-19 VACCINE (#1) [facility] Start: 1996 Covid-19 Vaccine (#1) Covid-19 Vaccine (#1) [facility] SARS-CoV-2 (COVID-19 ) RNA [Presence] in Respiratory specimen by LAWSON with probe detection COVID NAAT, UPPER RESPIRATORY, ROUTINE Microbiology Routine Acute cough Ordered: 03/17/2023 [facility] Work Phone: Immunizations Immunization Date Immunization Notes Care Provider Fa demarco 11-14-2008 Meningococcal, MCV4, unspecified conjugate formulation(groups A, C, Y and W-135) Issac Parmar MAGNETIC DOCTOR.[facility] Work Phone: [facility] Work Phone: 11-14-2008 tetanus toxoid, redu kristi diphtheria toxoid, and acellular pertussis vaccine, adsorbed Issac Parmar MAGNETIC DOCTOR.MUSIC ENGRAVER Work Phone: [facility] Work Phone: 11-05-2001 diphtheria, tetanus toxoids and acellular pertussis vaccine Issac Parmar MAGNETIC DOCTOR.MUSIC ENGRAVER Work Phone: [facility] Work Phone: 11-05-2001 measles, mumps and rubella virus vaccine Issac Parmar MAGNETIC DOCTOR.MUSIC ENGRAVER Work Phone: [facility] Work Phone: 11-05-2001 poliovirus vaccine, inactivated Issac Parmar MAGNETIC DOCTOR.MUSIC ENGRAVER Work Phone: [facility] Work Phone: 01-28-2000 pneumococcal conjuga te vaccine, 7 valent Issac Pamrar MAGNETIC DOCTOR.MUSIC ENGRAVER Work Phone: [facility] Work Phone: 05-22-1997 diphtheria, tetanus toxoids and acellular pertussis vaccine Issac Parmar MAGNETIC DOCTOR.MUSIC ENGRAVER Work Phone: [facility] Work Phone: 05-22-1997 haemophilus influenz ae type b vaccine, HbOC conjugate Issac Parmar MAGNETIC DOCTOR.MUSIC ENGRAVER Work Phone: [facility] Work Phone: 05-22-1997 varicella virus vaccine Carlo Parmar MAGNETIC DOCTOR.MUSIC ENGRAVER Work Phone: [facility] Work Phone: 02-13-1997 measles, mumps and rubella virus vaccine Issac Parmar MAGNETIC DOCTOR.MUSIC ENGRAVER Work Phone: [facility] Work Phone: 02-13-1997 poliovirus vaccine, inactivated Issac Parmar MAGNETIC DOCTOR.MUSIC ENGRAVER Work Phone: [facility] Work Phone: 1996 diphtheria, tetanus toxoids and acellular pertussis vaccine Issac Parmar MAGNETIC DOCTOR.[facility] Work Phone: [facility] Work Phone: 1996 haemophilus influenz ae type b vaccine, HbOC conjugate Issac Parmar MAGNETIC DOCTOR.[facility] Work Phone: [facility] Work Phone: 1996 hepatitis B vaccine, pediatric or pediatric/adolescent dosage Issac Parmar MAGNETIC DOCTOR.MUSIC ENGRAVER Work Phone: [facility] Work Phone: 1996 diphtheria, tetanus toxoids and acellular pertussis vaccine Issac Parmar MAGNETIC DOCTOR.[facility] Work Phone: [facility] Work Phone: 1996 haemophilus influenz ae type b vaccine, HbOC conjugate Issac Parmar MAGNETIC DOCTOR.[facility] Work Phone: [facility] Work Phone: 1996 poliovirus vaccine, inactivated Issac Parmar MAGNETIC DOCTOR.MUSIC ENGRAVER Work Phone: [facility] Work Phone: 1996 diphtheria, tetanus toxoids and acellular pertussis vaccine sIsac Parmar MAGNETIC DOCTOR.MUSIC ENGRAVER Work Phone: [facility] Work Phone: 1996 haemophilus influenz ae type b vaccine, HbOC conjugate Issac Parmar MAGNETIC DOCTOR.[facility] Work Phone: [facility] Work Phone: 1996 hepatitis B vaccine, pediatric or pediatric/adolescent dosage Issac Parmar MAGNETIC DOCTOR.MUSIC ENGRAVER Work Phone: [facility] Work Phone: 1996 poliovirus vaccine, inactivated Issac Parmar MAGNETIC DOCTOR.MUSIC ENGRAVER Work Phone: [facility] Work Phone: 1996 hepatitis B vaccine, pediatric or pediatric/adolescent dosage Issac Parmar MAGNETIC DOCTOR.MUSIC ENGRAVER Work Phone: [facility] Work Phone: Payers Date Payer Category Payer Medicaid [facility] [employer] [id number] 2022-Present [phone] [address] [place] [address] Medicaid [id number] 2022 Medicaid [id number] 2015 Medicaid [facility] A[facility] [employer] [id number] 2015-Present [phone] [address] [place] [address] Medicaid [id number] 2015 Medicaid [id number] 1996 Unknown [id number] Social History Date Type Detail Facility Start: 07-15-2017 End: 03-26-2022 Tobacco smoking status DEIS Smokes tobacco daily [facility] End: 05-14-2014 History of tobacco use Cigarette Smoker [facility] Start: 07-15-2017 End: 03-18-2020 Cigarettes smoked current (pack per day) - Reported 0.2 [facility] Start: 07-15-2017 End: 03-26-2022 Tobacco use and exposure Smokeless tobacco non-user [facility] Start: 10-01-2021 End: 03-17-2023 Alcohol intake Current non-drinker of alcohol (finding) [facility] Start: 1995 Sex Assigned At Not on file C [facility] Start: 09-21-2021 End: 10-01-2021 Exposure to SARS-CoV-2 (event) Not sure [facility] Work Phone: Start: 01-10-2020 Tobacco smoking status Heavy t obacco smoker (finding) [facility] Sex Assigned At Sex [facility] Start: 03-18-2020 End: 03-17-2023 Tobacco use panel [facility] Adult Depression Screening Assessment 2 [facility] Functional Status Date Assessment Result Facility 03-31-2022 Functional Status Room check performed [facility] 03-31-2022 Functional Status [facility] 03-31-2022 Functional Status Demonstrates C orrect Call Light Use Yes [facility] 03-31-2022 Functional Status [facility] 03-30-2022 Functional Status [facility] 03-30-2022 Functional Status Dinner Percent 0 [facility] 03-30-2022 Functional Status Lunch Percent 50 [facility] 03-30-2022 Functional Status [facility] 03-30-2022 Functional Status SCD On/Re-appl ied bilateral knee high [facility] 03-29-2022 Functional Status Done [facility] 03-29-2022 Functional Status Single level home [facility] 03-28-2022 Functional Status Sensory Deficits None A [facility] 03-28-2022 Functional Status Ambulation in [facility] Mental Status Date Assessment Result Facility 03-31-2022 Mental Status Orientation Oriented x 4 [facility] 03-31-2022 Mental Status [facility] 03-31-2022 Mental Status [facility] 03-30-2022 Mental Status [facility] Clinical Notes 01-07-2011 to 03-17-2023 Camille Hall PA-C - 03/17/2023 7:54 AM EST Note Date & Type Note Facility 03-17-2023 Note HNO ID: [id number] Author: Camille Hall PA-C Service: ? Author Type: Physician Production Quality Manager Type: Progress Notes Filed: 03/17/2023 8:10 AM Note Text: 03/17/2023 Patient presents with: Cough: Raspy throat, sneezing runny nose x 1 days exposed to covid wants tested SUBJECTIVE: This is a 28 year old that is here today for Complaint(s) of cough x 1 day. Associated sratchy throat and rhinorrhea. Exposed to COVID last week. Denies fever/chills, SOB, chest pain ear pain. PAST MEDICAL HISTORY Diagnosis Date Anxiety Elevated blood pressure 01/07/2011 Excessive anger Headache(784.0) 03/13/2011 History of drug use meth and marajuana IBS (irritable bowel syndrome) Left ventricular hypertrophy Overweight(278.02) 01/07/2011 ALLERGIES Amoxicillin and Inderal [Propranolol] MEDICATIONS Current Outpatient Medications Medication Sig levothyroxine (SYNTHROID) 25 mcg tablet lamoTRIgine (LAMICTAL) 200 mg tablet Take by mouth. metFORMIN (GLUCOPHAGE) 500 mg tablet Take by mouth. lisinopril (ZESTRIL, PRINIVIL) 10 mg tablet Take 1 tablet by mouth once daily. medroxyPROGESTERone (PROVERA) 5 mg tablet Take by mouth. (Patient not taking: Reported on 03/17/2023) citalopram (CELEXA) 20 mg tablet Take 20 mg by mouth once daily. (Patient not taking: Reported on 03/26/2022) omeprazole (PRILOSEC) 40 mg capsule Take 1 capsule by mouth once daily. (Patient not taking: Reported on 03/26/2022) mupirocin (BACTROBAN) 2 % ointment Apply 1 application to affected area three times daily. (Patient not taking: Reported on 01/28/2020 ) busPIRone (BUSPAR) 10 mg tablet Take 1 tablet by mouth twice daily. Levonorgestrel-Ethinyl Estrad 0.1mg - 20mcg per tablet Take 1 tablet by mouth as directed. COMPOUNDED PRESCRIPTION Consult why weight program (Patient not taking: Reported on 03/26/2022) albuterol HFA (PROAIR HFA) 90 mcg/actuation inhaler Inhale 2 Puffs as instructed every 4 hours as needed for Wheezing/Shortness of Breath. (Patient not taking: Reported on 03/26/2022) risperiDONE (RISPERDAL) 2 mg tablet Take 1 tablet by mouth twice daily. (Patient not taking: Reported on 01/28/2020 ) No current facility-administered medications for this visit. SOCIAL HISTORY Social History Tobacco Use Smoking status: Every Day Packs/day: .2 Types: Cigarettes Last attempt to quit: 05/14/2014 Years since quittin.8 Smokeless tobacco: Never Substance Use Topics Alcohol use: No Drug use: No REVIEW OF SYSTEMS See HPI OBJECTIVE: BP 118/81 Pulse 75 Temp 37.1 ?C (98.8 ?F) Resp 18 Wt 98.9 kg (218 lb) LMP 02/23/2023 (Approximate) SpO2 98% BMI 37.42 kg/m? APPEARANCE Well appearing, alert, in no acute distress, well-hydrated, well nourished. EYES PERRLA, conjunctiva and sclera normal. EARS External ears normal, canals clear. TMs normal VESTA NOSE/SINUS Nares normal. Septum midline. Mucosa normal. No drainage or sinus tenderness. THROAT normal, no erythema NECK Supple, no adenopathy; HEART RRR with normal S1 and S2 LUNG clear to auscultation, No wheezing, rhonchi, rales. ASSESSMENT/PLAN: 1. Acute cough - ICD9: 786.2, ICD10: R05.1 R/o COVID with recent exposure vs other likely viral etiology F/u in 5-7 days if not improving, sooner if symptoms are worsening Reviewed red flags and when to seek care sooner in ER The patient indicates understanding of these issues and agrees with the plan. OTC cough/cold meds, tylenol/motrin prn - COVID NAAT, UPPER RESPIRATORY, ROUTINE Camille Hall PA-C [facility] 03-17-2023 History of Present illness Narrative 03/17/2023 Patient presents with: Cough: Raspy throat, sneezing runny nose x 1 days exposed to covid Thursday wants tested SUBJECTIVE: This is a 28 year old that is here today for Complaint(s) of cough x 1 day. Associated sratchy throat and rhinorrhea. Exposed to COVID last week. Denies fever/chills, SOB, chest pain ear pain. PAST MEDICAL HISTORY Diagnosis Date Anxiety Elevated blood pressure 01/07/2011 Excessive anger Headache(784.0) 03/13/2011 History of drug use meth and marajuana IBS (irritable bowel syndrome) Left ventricular hypertrophy Overweight(278.02) 01/07/2011 ALLERGIES Amoxicillin and Inderal [Propranolol] MEDICATIONS Current Outpatient Medications Medication Sig levothyroxine (SYNTHROID) 25 mcg tablet lamoTRIgine (LAMICTAL) 200 mg tablet Take by mouth. metFORMIN (GLUCOPHAGE) 500 mg tablet Take by mouth. lisinopril (ZESTRIL, PRINIVIL) 10 mg tablet Take 1 tablet by mouth once daily. medroxyPROGESTERone (PROVERA) 5 mg tablet Take by mouth. (Patient not taking: Reported on 03/17/2023) citalopram (CELEXA) 20 mg tablet Take 20 mg by mouth once daily. (Patient not taking: Reported on 03/26/2022) omeprazole (PRILOSEC) 40 mg capsule Take 1 capsule by mouth once daily. (Patient not taking: Reported on 03/26/2022) mupirocin (BACTROBAN) 2 % ointment Apply 1 application to affected area three times daily. (Patient not taking: Reported on 01/28/2020 ) busPIRone (BUSPAR) 10 mg tablet Take 1 tablet by mouth twice daily. Levonorgestrel-Ethinyl Estrad 0.1mg - 20mcg per tablet Take 1 tablet by mouth as directed. COMPOUNDED PRESCRIPTION Consult why weight program (Patient not taking: Reported on 03/26/2022) albuterol HFA (PROAIR HFA) 90 mcg/actuation inhaler Inhale 2 Puffs as instructed every 4 hours as needed for Wheezing/Shortness of Breath. (Patient not taking: Reported on 03/26/2022) risperiDONE (RISPERDAL) 2 mg tablet Take 1 tablet by mouth twice daily. (Patient not taking: Reported on 01/28/2020 ) No current facility-administered medications for this visit. SOCIAL HISTORY Social History Tobacco Use Smoking status: Every Day Packs/day: .2 Types: Cigarettes Last attempt to quit: 05/14/2014 Years since quittin.8 Smokeless tobacco: Never Substance Use Topics Alcohol use: No Drug use: No REVIEW OF SYSTEMS See HPI OBJECTIVE: BP 118/81 Pulse 75 Temp 37.1 C (98.8 F) Resp 18 Wt 98.9 kg (218 lb) LMP 02/23/2023 (Approximate) SpO2 98% BMI 37.42 kg/m APPEARANCE Well appearing, alert, in no acute distress, well-hydrated, well nourished. EYES PERRLA, conjunctiva and sclera normal. EARS External ears normal, canals clear. TMs normal VESTA NOSE/SINUS Nares normal. Septum midline. Mucosa normal. No drainage or sinus tenderness. THROAT normal, no erythema NECK Supple, no adenopathy; HEART RRR with normal S1 and S2 LUNG clear to auscultation, No wheezing, rhonchi, rales. ASSESSMENT/PLAN: 1. Acute cough - ICD9: 786.2, ICD10: R05.1 R/o COVID with recent exposure vs other likely viral etiology F/u in 5-7 days if not improving, sooner if symptoms are worsening Reviewed red flags and when to seek care sooner in ER The patient indicates understanding of these issues and agrees with the plan. OTC cough/cold meds, tylenol/motrin prn - COVID NAAT, UPPER RESPIRATORY, ROUTINE Camille Hall PA-C documented in this encounter [facility] 03-31-2022 Hospital Discharge instructions Patient Education 03/31/2022 12:32:07 Influenza, Adult Influenza, Adult Influenza, more commonly known as the flu, is a viral infection that mainly affects the respiratory tract. The respiratory tract includes organs that help you breathe, such as the lungs, nose, and throat. The flu causes many symptoms similar to the common cold along with high fever and body aches. The flu spreads easily from person to person (is contagious). Getting a flu shot (influenza vaccination) every year is the best way to prevent the flu. What are the causes? This condition is caused by the influenza virus. You can get the virus by: Breathing in droplets that are in the air from an infected person's cough or sneeze. Touching something that has been exposed to the virus (has been contaminated) and then touching your mouth, nose, or eyes. What increases the risk? The following factors may make you more likely to get the flu: Not washing or sanitizing your hands often. Having close contact with many people during cold and flu season. Touching your mouth, eyes, or nose without first washing or sanitizing your hands. Not getting a yearly (annual) flu shot. You may have a higher risk for the flu, including serious problems such as a lung infection (pneumonia), if you: Are older than 65. Are . Have a weakened disease-fighting system (immune system). You may have a weakened immune system if you: ?Have HIV or AIDS. ?Are undergoing chemotherapy. ?Are taking medicines that reduce (suppress) the activity of your immune system. Have a long-term (chronic) illness, such as heart disease, kidney disease, diabetes, or lung disease. Have a liver disorder. Are severely overweight (morbidly obese). Have anemia. This is a condition that affects your red blood cells. Have asthma. What are the signs or symptoms? Symptoms of this condition usually begin suddenly and last 4 14 days. They may include: Fever and chills. Headaches, body aches, or muscle aches. Sore throat. Cough. Runny or stuffy (congested) nose. Chest discomfort. Poor appetite. Weakness or fatigue. Dizziness. Nausea or vomiting. How is this diagnosed? This condition may be diagnosed based on: Your symptoms and medical history. A physical exam. Swabbing your nose or throat and testing the fluid for the influenza virus. How is this treated? If the flu is diagnosed early, you can be treated with medicine that can help reduce how severe the illness is and how long it lasts (antiviral medicine). This may be given by mouth (orally) or through an IV. Taking care of yourself at home can help relieve symptoms. Your health care provider may recommend: Taking brle-cdi-fdzzcks medicines. Drinking plenty of fluids. In many cases, the flu goes away on its own. If you have severe symptoms or complications, you may be treated in a hospital. Follow these instructions at home: Activity Rest as needed and get plenty of sleep. Stay home from work or school as told by your health care provider. Unless you are visiting your health care provider, avoid leaving home until your fever has been gone for 24 hours without taking medicine. Eating and drinking Take an oral rehydration solution (ORS). This is a drink that is sold at pharmacies and retail stores. Drink enough fluid to keep your urine pale yellow. Drink clear fluids in small amounts as you are able. Clear fluids include water, ice chips, diluted fruit juice, and low-calorie sports drinks. Eat bland, gfla-eh-ygacpg foods in small amounts as you are able. These foods include bananas, applesauce, rice, lean meats, toast, and crackers. Avoid drinking fluids that contain a lot of sugar or caffeine, such as energy drinks, regular sports drinks, and soda. Avoid alcohol. Avoid spicy or fatty foods. General instructions Take vpke-rqr-kkybkqa and prescription medicines only as told by your health care provider. Use a cool mist humidifier to add humidity to the air in your home. This can make it easier to breathe. Cover your mouth and nose when you cough or sneeze. Wash your hands with soap and water often, especially after you cough or sneeze. If soap and water are not available, use alcohol-based hand adjunct professor of law. Keep all follow-up visits as told by your health care provider. This is important. How is this prevented? Get an annual flu shot. You may get the flu shot in late summer, fall, or winter. Ask your health care provider when you should get your flu shot. Avoid contact with people who are sick during cold and flu season. This is generally fall and winter. Contact a health care provider if: You develop new symptoms. You have: ?Chest pain. ?Diarrhea. ?A fever. Your cough gets worse. You produce more mucus. You feel nauseous or you vomit. Get help right away if: You develop shortness of breath or difficulty breathing. Your skin or nails turn a bluish color. You have severe pain or stiffness in your neck. You develop a sudden headache or sudden pain in your face or ear. You cannot eat or drink without vomiting. Summary Influenza, more commonly known as the flu, is a viral infection that primarily affects your respiratory tract. Symptoms of the flu usually begin suddenly and last 4 14 days. Getting an annual flu shot is the best way to prevent getting the flu. Stay home from work or school as told by your health care provider. Unless you are visiting your health care provider, avoid leaving home until your fever has been gone for 24 hours without taking medicine. Keep all follow-up visits as told by your health care provider. This is important. This information is not intended to replace advice given to you by your health care provider. Make sure you discuss any questions you have with your health care provider. Document Released: 03/27/2001 Document Revised: 06/30/2019 Document Reviewed: 09/15/2018 [employer] Patient Education 2020 [employer]. 03/31/2022 12:31:59 Community-Acquired Pneumonia, Adult Community-Acquired Pneumonia, Adult Pneumonia is a type of lung infection that causes swelling in the airways of the lungs. Mucus and fluid may also build up inside the airways. This may cause coughing and difficulty breathing. There are different types of pneumonia. One type can develop while a person is in a hospital. A different type is called community-acquired pneumonia. It develops in people who are not, and have not recently been, in the hospital or another type of health care facility. What are the causes? This condition may be caused by: Viruses. This is the most common cause of pneumonia. Bacteria. Community-acquired pneumonia is often caused by Streptococcus pneumoniae bacteria. These bacteria are often passed from one person to another by breathing in droplets from the cough or sneeze of an infected person. Fungi. This is the least common cause of pneumonia. What increases the risk? The following factors may make you more likely to develop this condition: Having a chronic disease, such as chronic obstructive pulmonary disease (COPD), asthma, congestive heart failure, cystic fibrosis, diabetes, or kidney disease. Having early-stage or late-stage HIV. Having sickle cell disease. Having had your spleen removed (splenectomy). Having poor dental hygiene. Having a medical condition that increases the risk of breathing in (aspirating) secretions from your own mouth and nose. Having a weakened body defense system (immune system). Being a smoker. Traveling to areas where pneumonia-causing germs commonly exist. Being around animal habitats or animals that have pneumonia-causing germs, including birds, bats, rabbits, cats, and farm animals. What are the signs or symptoms? Symptoms of this condition include: A dry cough. A wet (productive) cough. Fever. Sweating. Chest pain, especially when breathing deeply or coughing. Rapid breathing or difficulty breathing. Shortness of breath. Shaking chills. Fatigue. Muscle aches. How is this diagnosed? This condition may be diagnosed based on: Your medical history. A physical exam. You may also have tests, including: Chest X-rays. Tests of your blood oxygen level and other blood gases. Tests on blood, mucus (sputum), fluid around your lungs (pleural fluid), and urine. If your pneumonia is severe, other tests may be done to find the exact cause of your illness. How is this treated? Treatment for this condition depends on many factors, such as the cause of your pneumonia, the medicines you take, and other medical conditions that you have. For most adults, treatment and recovery from pneumonia may occur at home. In some cases, treatment must happen in a hospital. Treatment may include: Medicines that are given by mouth or through an IV, including: ?Antibiotic medicines, if the pneumonia was caused by bacteria. ?Antiviral medicines, if the pneumonia was caused by a virus. Being given extra oxygen. Respiratory therapy. Although rare, treating severe pneumonia may include: Using a machine to help you breathe (mechanical ventilation). This is done if you are not breathing well on your own and you cannot maintain a safe blood oxygen level. Thoracentesis. This is a procedure to remove fluid from around one lung or both lungs to help you breathe better. Follow these instructions at home: Medicines Take srfp-dda-mywycwg and prescription medicines only as told by your health care provider. ?Only take cough medicine if you are losing sleep. Be aware that cough medicine can prevent your body's natural ability to remove mucus from your lungs. If you were prescribed an antibiotic medicine, take it as told by your health care provider. Do not stop taking the antibiotic even if you start to feel better. General instructions Sleep in a semi-upright position at night. Try sleeping in a reclining chair, or place a few pillows under your head. Rest as needed and get at least 8 hours of sleep each night. Drink enough water to keep your urine pale yellow. This will help to thin out mucus secretions in your lungs. Eat a healthy diet that includes plenty of vegetables, fruits, whole grains, low-fat dairy products, and lean protein. Do not use any products that contain nicotine or tobacco, such as cigarettes, e-cigarettes, and chewing tobacco. If you need help quitting, ask your health care provider. Keep all follow-up visits as told by your health care provider. This is important. How is this prevented? You can lower your risk of developing community-acquired pneumonia by: Getting a pneumococcal vaccine. There are different types and schedules of pneumococcal vaccines. Ask your health care provider which option is best for you. Consider getting the vaccine if: ?You are older than 65 years of age. ?You are older than 19 years of age and are undergoing cancer treatment, have chronic lung disease, or have other medical conditions that affect your immune system. Ask your health care provider if this applies to you. Getting an influenza vaccine every year. Ask your health care provider which type of vaccine is best for you. Getting regular checkups from your dentist. Washing your hands often. If soap and water are not available, use hand adjunct professor of law. Contact a health care provider if: You have a fever. You are losing sleep because you cannot control your cough with cough medicine. Get help right away if: You have worsening shortness of breath. You have increased chest pain. Your sickness becomes worse, especially if you are an older adult or have a weakened immune system. You cough up blood. Summary Pneumonia is an infection of the lungs. Community-acquired pneumonia develops in people who have not been in the hospital. It can be caused by bacteria, viruses, or fungi. This condition may be treated with antibiotics or antiviral medicines. Severe cases may require hospitalization, mechanical ventilation, and other procedures to drain fluid from the lungs. This information is not intended to replace advice given to you by your health care provider. Make sure you discuss any questions you have with your health care provider. Document Released: 03/30/2006 Document Revised: 11/25/2018 Document Reviewed: 11/25/2018 [employer] Patient Education 2020 [employer]. 03/28/2022 18:00:35 Pneumonia (Adult) Pneumonia (Adult) Pneumonia is an infection deep within the lungs. It is in the small air sacs (alveoli). Pneumonia may be caused by a virus or bacteria. Pneumonia caused by bacteria is usually treated with an antibiotic. Severe cases may need to be treated in the hospital. Milder cases can be treated at home. Symptoms usually start to get better during the first 2 days of treatment. Home care Follow these guidelines when caring for yourself at home: Rest at home for the first 2 to 3 days, or until you feel stronger. Don t let yourself get overly tired when you go back to your activities. Stay away from cigarette smoke yours or other people s. You may use acetaminophen or ibuprofen to control fever or pain, unless another medicine was prescribed. If you have chronic liver or kidney disease, talk with your healthcare provider before using these medicines. Also talk with your provider if you ve had a stomach ulcer or gastrointestinal bleeding. Don t give aspirin to anyone younger than 18 years of age who is ill with a fever. It may cause severe liver damage. Your appetite may be poor, so a light diet is fine. Drink 6 to 8 glasses of fluids every day to make sure you are getting enough fluids. Beverages can include water, sport drinks, sodas without caffeine, juices, tea, or soup. Fluids will help loosen secretions in the lung. This will make it easier for you to cough up the phlegm (sputum). If you also have heart or kidney disease, check with your healthcare provider before you drink extra fluids. Take antibiotic medicine prescribed until it is all gone, even if you are feeling better after a few days. Follow-up care Follow up with your healthcare provider in the next 2 to 3 days, or as advised. This is to be sure the medicine is helping you get better. If you are 65 or older, you should get a pneumococcal vaccine and a yearly flu (influenza) shot. You should also get these vaccines if you have chronic lung disease like asthma, emphysema, or COPD. Recently, a second type of pneumonia vaccine has become available for everyone over 65 years old. This is in addition to the previous vaccine. Ask your provider about this. When to seek medical advice Call your healthcare provider right away if any of these occur: You don t get better within the first 48 hours of treatment Shortness of breath gets worse Rapid breathing (more than 25 breaths per minute) Coughing up blood Chest pain gets worse with breathing Fever of 100.4 F (38 C) or higher that doesn t get better with fever medicine Weakness, dizziness, or fainting that gets worse Thirst or dry mouth that gets worse Sinus pain, headache, or a stiff neck Chest pain not caused by coughing [id number] [employer]. [address] [place] [address], [place] [address]. All rights reserved. This information is not intended as a substitute for professional medical care. Always follow your healthcare professional's instructions. Follow Up Care 03/28/2022 15:37:45 With:ALEJANDRA HARRIS MD [facility]: [address] [facility] [place] [address] When:2-4 days Comments:Please call to schedule your post-hospital follow-up appointment. [facility] 03-31-2022 Note Discharge Instructions Thank you for allowing [facility] to assist you with your healthcare needs. The following is important discharge information regarding your hospital visit. Your Care Team [facility] Your Diagnosis Pneumonia Influenza A Shortness of breath Diabetes type 2, controlled Tobacco use Generalized anxiety disorder What to do next Instructions From Your Doctor You were admitted with a diagnosis of pneumonia and influenza A. It is possible the influenza A caused your pneumonia but we are not sure. You have responded well to treatment of both and have been able to be weaned off of oxygen overnight. We will discharge you on the remaining doses of Tamiflu and an antibiotic to clear up the pneumonia. We will also send in a prescription for an inhaler that you can use as needed for shortness of breath or wheezing. Please follow-up with your PCP in the next week for a post-hospital follow-up. Please return to the ED with any sudden or severe shortness of breath or chest pain. Follow Up Appointments Follow Up with ALEJANDRA HARRIS MD When Within 2-4 days Why: Please call to schedule your post-hospital follow-up appointment. [facility] [address] [facility] [place] [address]- The Following Activity and Diet Have Been Ordered for You Discharge Activity - Ordered -- Resume your pre-hospitalization activity, 03/31/22 12:38:00 EST Discharge Diet - Ordered -- No changes were made to your diet during your hospital stay. Please resume your pre hospitalization diet on discharge., 03/31/22 12:38:00 EST Allergies Inderal amoxicillin Medications Please ask your primary doctor or pharmacist before taking any other medication not listed, including over the counter drugs, herbal medications, vitamins and or supplements as they may interact with your home medications. What How Much When Instructions Last Dose New albuterol (albuterol MDI (90 mcg/ inh) CFC free inhalation aerosol) 1 puff(s) by inhalation Every 4 hours as needed for as needed for wheezing Pickup at [facility] #[id number] New cefdinir (cefdinir 300 mg oral capsule) 1 cap by mouth Every 12 hours Duration: 7 Days Pickup at [facility] #[id number] start 03/31 in the evening New oseltamivir (Tamiflu 75 mg oral capsule) 1 cap by mouth Two (2) times a day Pickup at [facility] #[id number] 03/31 @ 9am Unchanged haloperidol (haloperidol 0.5 mg oral tablet) 1 tab(s) by mouth As needed for Anxiety 03/31 @ 9am Unchanged lamoTRIgine (lamoTRIgine 150 mg oral tablet) 1 tab(s) by mouth Two (2) times a day 03/31 @ 9am Unchanged lisinopril (lisinopril 10 mg oral tablet) 1 tab(s) by mouth Once a day 03/31 @ 9am Unchanged metFORMIN (metFORMIN 500 mg oral tablet (IR)) 1 tab(s) by mouth Two (2) times a day 03/31 @ 9am Unchanged predniSONE (predniSONE 10 mg oral tablet) TAKE 4 TABLETS BY MOUTH WITH FOOD ONCE DAILY FOR 3 DAYS, THEN TAKE 2 TABLETS ONCE DAILY FOR 3 DAYS, THEN TAKE 1 TABLET ONCE DAILY FOR 3 DAYS 03/31 @ 9am Pharmacy Information [facility] #[id number]: [address] [place], [place] [id number] [phone] Please take this list to your next doctor s visit. Bring all medications you take, including over the counter medications, herbals and other supplements with you to your doctor s visit. Patients and families are reminded to discard old lists and to update any records with all medication providers or retail pharmacies. Medication Leaflets cefdinir ([facility] javon luan) Omnicef, Omnicef Omni-Pac What is the most important information I should know about cefdinir? Do not take this medicine if you are allergic to cefdinir, or to similar antibiotics, such as Ceftin, Cefzil, Keflex, and others. What is cefdinir? Cefdinir is a cephalosporin (SEF a low spor in) antibiotic that is used to treat many different types of infections caused by bacteria. Cefdinir may also be used for purposes not listed in this medication guide. What should I discuss with my healthcare provider before taking cefdinir? You should not take this medicine if you are allergic to cefdinir or any other cephalosporin antibiotic (cefadroxil, cefprozil, cefazolin, cefalexin, Keflex, and others). Tell your doctor if you have ever had: kidney disease (or if you are on dialysis); intestinal problems, such as colitis; or an allergy to any drugs (especially penicillins). Cefdinir liquid contains sucrose. Talk to your doctor before using this form of cefdinir if you have diabetes. Tell your doctor if you are or . How should I take cefdinir? Follow all directions on your prescription label and read all medicine guides or instruction sheets. Use the medicine exactly as directed. Shake the oral suspension (liquid) before you measure a dose. Use the dosing syringe provided, or use a medicine dose-measuring device (not a kitchen spoon). You may take cefdinir with or without food. Use this medicine for the full prescribed length of time, even if your symptoms quickly improve. Skipping doses can increase your risk of infection that is resistant to medication. Cefdinir will not treat a viral infection such as the flu or a common cold. Cefdinir can affect the results of certain medical tests. Tell any doctor who treats you that you are using cefdinir. Store at room temperature away from moisture and heat. Throw away any unused cefdinir liquid that is older than 10 days. What happens if I miss a dose? Take the medicine as soon as you can, but skip the missed dose if it is almost time for your next dose. Do not take two doses at one time. What happens if I overdose? Seek emergency medical attention or call the Poison Help line at . Overdose symptoms may include nausea, vomiting, stomach pain, diarrhea, or a seizure. What should I avoid while taking cefdinir? Avoid using antacids or mineral supplements that contain aluminum, magnesium, or iron within 2 hours before or after taking cefdinir. Antacids or iron can make it harder for your body to absorb cefdinir. This does not include baby formula fortified with iron. Antibiotic medicines can cause diarrhea, which may be a sign of a new infection. If you have diarrhea that is watery or bloody, call your doctor before using anti-diarrhea medicine. What are the possible side effects of cefdinir? Get emergency medical help if you have signs of an allergic reaction (hives, difficult breathing, swelling in your face or throat) or a severe skin reaction (fever, sore throat, burning eyes, skin pain, red or purple skin rash with blistering and peeling). Call your doctor at once if you have: severe stomach pain, diarrhea that is watery or bloody (even if it occurs months after your last dose); fever, chills, body aches, flu symptoms; pale skin, easy bruising, unusual bleeding; seizure (convulsions); fever, weakness, confusion; dark colored urine, jaundice (yellowing of the skin or eyes); or kidney problems--little or no urination, swelling in your feet or ankles, feeling tired or short of breath. Common side effects may include: nausea, vomiting, stomach pain, diarrhea; vaginal itching or discharge; headache; or rash (including diaper rash in an taking liquid cefdinir. This is not a complete list of side effects and others may occur. Call your doctor for medical advice about side effects. You may report side effects to FDA at 2-051-DZA-7479. What other drugs will affect cefdinir? Tell your doctor about all your other medicines, especially: probenecid; or vitamin or mineral supplements that contain iron. This list is not complete. Other drugs may affect cefdinir, including prescription and afkg-prx-goedpqb medicines, vitamins, and herbal products. Not all possible drug interactions are listed here. Where can I get more information? Your pharmacist can provide more information about cefdinir. Remember, keep this and all other medicines out of the reach of children, never share your medicines with others, and use this medication only for the indication prescribed. Every effort has been made to ensure that the information provided by [employer] is accurate, up-to-date, and complete, but no guarantee is made to that effect. Drug information contained herein may be time sensitive. [employer] information has been compiled for use by healthcare practitioners and consumers in the [place] and therefore [employer] does not warrant that uses outside of the [place] are appropriate, unless specifically indicated otherwise. [employer]'s drug information does not endorse drugs, diagnose patients or recommend therapy. [employer] drug information is an informational resource designed to assist licensed healthcare practitioners in caring for their patients and/or to serve consumers viewing this service as a supplement to, and not a substitute for, the expertise, skill, knowledge and judgment of healthcare practitioners. The absence of a warning for a given drug or drug combination in no way should be construed to indicate that the drug or drug combination is safe, effective or appropriate for any given patient. [facility] does not assume any responsibility for any aspect of healthcare administered with the aid of information [facility] provides. The information contained herein is not intended to cover all possible uses, directions, precautions, warnings, drug interactions, allergic reactions, or adverse effects. If you have questions about the drugs you are taking, check with your doctor, nurse or pharmacist. Copyright [id number] [employer] [facility]. Version: 7.03. Revision Date: 04/16/2020. oseltamivir (os el UMAÑA ih veer) Tamiflu What is the most important information I should know about oseltamivir? Some people using oseltamivir have had sudden unusual changes in mood or behavior, most often in children. It is not certain that oseltamivir is the exact cause. Even without using oseltamivir, anyone with influenza can have neurologic or behavioral effects that may lead to confusion or hallucinations. Call your doctor right away if the person using this medicine has any signs of unusual thoughts or behavior. What is oseltamivir? Oseltamivir is an antiviral medication that blocks the actions of influenza virus types A and B in your body. Oseltamivir is used to treat flu symptoms caused by influenza virus in people who have had symptoms for less than 2 days. Oseltamivir may also be given to prevent influenza in people who may be exposed but do not yet have symptoms. Oseltamivir will not treat the common cold. Oseltamivir should not be used in place of getting a yearly flu shot. The Centers for Disease Control recommends an annual flu shot to help protect you each year from new strains of influenza virus. Oseltamivir may also be used for purposes not listed in this medication guide. What should I discuss with my healthcare provider before using oseltamivir? You should not use oseltamivir if you are allergic to it. Do not use oseltamivir to treat flu symptoms in a child younger than 2 weeks old. Children as young as 1 year old may use zanamivir to prevent flu symptoms. Tell your doctor if you have ever had: kidney disease (or if you are on dialysis); heart disease or chronic lung disease; a condition causing swelling or disorder of the brain; a weak immune system (caused by disease or by using certain medicine); hereditary fructose intolerance; or if you have used a nasal flu vaccine (FluMist) within the past 2 weeks. It is not known whether this medicine will harm an unborn baby. However, getting sick with influenza during can cause complications leading to defects, low weight, delivery, or stillbirth. Your doctor will decide whether you should receive oseltamivir if you are . The Centers for Disease Control and Prevention (CDC) recommends that women may receive a yearly flu vaccine to prevent influenza. Oseltamivir is not to be used in place of the yearly flu shot. It may not be safe to breast-feed while using this medicine. Ask your doctor about any risk. How should I take oseltamivir? Follow all directions on your prescription label and read all medication guides or instruction sheets. Use the medicine exactly as directed. Start taking oseltamivir as soon as possible after flu symptoms appear, such as fever, chills, muscle aches, sore throat, and runny or stuffy nose. Take the oseltamivir capsule with a full glass of water. Shake the oral suspension (liquid) before you measure a dose. Use the dosing syringe provided, or use a medicine dose-measuring device (not a kitchen spoon). Oseltamivir may be taken with food if it upsets your stomach. To treat flu symptoms: Take oseltamivir every 12 hours for 5 days. To prevent flu symptoms: Take oseltamivir every 24 hours for 10 days or as prescribed. Follow your doctor's instructions. Read and carefully follow any Instructions for Use provided with your medicine. Ask your doctor or pharmacist if you do not understand these instructions. Use this medicine for the full prescribed length of time, even if your symptoms quickly improve. Tell your doctor if your symptoms do not improve, or if they get worse. Store oseltamivir capsules at room temperature away from moisture and heat. Store oseltamivir liquid in the refrigerator but do not freeze. Throw away any unused liquid after 17 days. The liquid may also be stored at cool room temperature for up to 10 days What happens if I miss a dose? Use the medicine as soon as you can, but skip the missed dose if your next dose is due in less than 2 hours. Do not use two doses at one time. What happens if I overdose? Seek emergency medical attention or call the Poison Help line at . What should I avoid while taking oseltamivir? Do not use a nasal flu vaccine (FluMist) within 48 hours after taking oseltamivir. Oseltamivir may interfere with the drug action of FluMist, making the vaccine less effective. Follow your doctor's instructions. What are the possible side effects of oseltamivir? Get emergency medical help if you have signs of an allergic reaction (hives, difficult breathing, swelling in your face or throat) or a severe skin reaction (fever, sore throat, burning eyes, skin pain, red or purple skin rash with blistering and peeling). Some people using oseltamivir (especially children) have had sudden unusual changes in mood or behavior. It is not certain that oseltamivir is the exact cause of these symptoms. Even without using oseltamivir, anyone with influenza can have neurologic or behavioral symptoms. Call your doctor right away if the person using this medicine has: sudden confusion; tremors or shaking; unusual behavior; or hallucinations (hearing or seeing things that are not there). Common side effects may include: nausea, vomiting; headache; or pain. This is not a complete list of side effects and others may occur. Call your doctor for medical advice about side effects. You may report side effects to FDA at 8-012-WAA-4812. What other drugs will affect oseltamivir? Other drugs may affect oseltamivir, including prescription and lrli-ext-jguknhf medicines, vitamins, and herbal products. Tell your doctor about all your current medicines and any medicine you start or stop using. Where can I get more information? Your pharmacist can provide more information about oseltamivir. Remember, keep this and all other medicines out of the reach of children, never share your medicines with others, and use this medication only for the indication prescribed. Every effort has been made to ensure that the information provided by [employer] is accurate, up-to-date, and complete, but no guarantee is made to that effect. Drug information contained herein may be time sensitive. [employer] information has been compiled for use by healthcare practitioners and consumers in the [place] and therefore [employer] does not warrant that uses outside of the [place] are appropriate, unless specifically indicated otherwise. [employer]'s drug information does not endorse drugs, diagnose patients or recommend therapy. [employer] drug information is an informational resource designed to assist licensed healthcare practitioners in caring for their patients and/or to serve consumers viewing this service as a supplement to, and not a substitute for, the expertise, skill, knowledge and judgment of healthcare practitioners. The absence of a warning for a given drug or drug combination in no way should be construed to indicate that the drug or drug combination is safe, effective or appropriate for any given patient. [employer] does not assume any responsibility for any aspect of healthcare administered with the aid of information [employer] provides. The information contained herein is not intended to cover all possible uses, directions, precautions, warnings, drug interactions, allergic reactions, or adverse effects. If you have questions about the drugs you are taking, check with your doctor, nurse or pharmacist. Copyright [id number] [facility]. Version: 12.. Revision Date: 01/05/2018. Education Materials Influenza, Adult Influenza, more commonly known as the flu, is a viral infection that mainly affects the respiratory tract. The respiratory tract includes organs that help you breathe, such as the lungs, nose, and throat. The flu causes many symptoms similar to the common cold along with high fever and body aches. The flu spreads easily from person to person (is contagious). Getting a flu shot (influenza vaccination) every year is the best way to prevent the flu. What are the causes? This condition is caused by the influenza virus. You can get the virus by: Breathing in droplets that are in the air from an infected person's cough or sneeze. Touching something that has been exposed to the virus (has been contaminated) and then touching your mouth, nose, or eyes. What increases the risk? The following factors may make you more likely to get the flu: Not washing or sanitizing your hands often. Having close contact with many people during cold and flu season. Touching your mouth, eyes, or nose without first washing or sanitizing your hands. Not getting a yearly (annual) flu shot. You may have a higher risk for the flu, including serious problems such as a lung infection (pneumonia), if you: Are older than 65. Are . Have a weakened disease-fighting system (immune system). You may have a weakened immune system if you: ? Have HIV or AIDS. ? Are undergoing chemotherapy. ? Are taking medicines that reduce (suppress) the activity of your immune system. Have a long-term (chronic) illness, such as heart disease, kidney disease, diabetes, or lung disease. Have a liver disorder. Are severely overweight (morbidly obese). Have anemia. This is a condition that affects your red blood cells. Have asthma. What are the signs or symptoms? Symptoms of this condition usually begin suddenly and last 4 14 days. They may include: Fever and chills. Headaches, body aches, or muscle aches. Sore throat. Cough. Runny or stuffy (congested) nose. Chest discomfort. Poor appetite. Weakness or fatigue. Dizziness. Nausea or vomiting. How is this diagnosed? This condition may be diagnosed based on: Your symptoms and medical history. A physical exam. Swabbing your nose or throat and testing the fluid for the influenza virus. How is this treated? If the flu is diagnosed early, you can be treated with medicine that can help reduce how severe the illness is and how long it lasts (antiviral medicine). This may be given by mouth (orally) or through an IV. Taking care of yourself at home can help relieve symptoms. Your health care provider may recommend: Taking oksf-azy-atmvxfb medicines. Drinking plenty of fluids. In many cases, the flu goes away on its own. If you have severe symptoms or complications, you may be treated in a hospital. Follow these instructions at home: Activity Rest as needed and get plenty of sleep. Stay home from work or school as told by your health care provider. Unless you are visiting your health care provider, avoid leaving home until your fever has been gone for 24 hours without taking medicine. Eating and drinking Take an oral rehydration solution (ORS). This is a drink that is sold at pharmacies and retail stores. Drink enough fluid to keep your urine pale yellow. Drink clear fluids in small amounts as you are able. Clear fluids include water, ice chips, diluted fruit juice, and low-calorie sports drinks. Eat bland, nkrd-kc-faacup foods in small amounts as you are able. These foods include bananas, applesauce, rice, lean meats, toast, and crackers. Avoid drinking fluids that contain a lot of sugar or caffeine, such as energy drinks, regular sports drinks, and soda. Avoid alcohol. Avoid spicy or fatty foods. General instructions Take kool-wmf-rgfxijt and prescription medicines only as told by your health care provider. Use a cool mist humidifier to add humidity to the air in your home. This can make it easier to breathe. Cover your mouth and nose when you cough or sneeze. Wash your hands with soap and water often, especially after you cough or sneeze. If soap and water are not available, use alcohol-based hand adjunct professor of law. Keep all follow-up visits as told by your health care provider. This is important. How is this prevented? Get an annual flu shot. You may get the flu shot in late summer, fall, or winter. Ask your health care provider when you should get your flu shot. Avoid contact with people who are sick during cold and flu season. This is generally fall and winter. Contact a health care provider if: You develop new symptoms. You have: ? Chest pain. ? Diarrhea. ? A fever. Your cough gets worse. You produce more mucus. You feel nauseous or you vomit. Get help right away if: You develop shortness of breath or difficulty breathing. Your skin or nails turn a bluish color. You have severe pain or stiffness in your neck. You develop a sudden headache or sudden pain in your face or ear. You cannot eat or drink without vomiting. Summary Influenza, more commonly known as the flu, is a viral infection that primarily affects your respiratory tract. Symptoms of the flu usually begin suddenly and last 4 14 days. Getting an annual flu shot is the best way to prevent getting the flu. Stay home from work or school as told by your health care provider. Unless you are visiting your health care provider, avoid leaving home until your fever has been gone for 24 hours without taking medicine. Keep all follow-up visits as told by your health care provider. This is important. This information is not intended to replace advice given to you by your health care provider. Make sure you discuss any questions you have with your health care provider. Document Released: 03/27/2001 Document Revised: 06/30/2019 Document Reviewed: 09/15/2018 [employer] Patient Education 2020 [employer] Community-Acquired Pneumonia, Adult Pneumonia is a type of lung infection that causes swelling in the airways of the lungs. Mucus and fluid may also build up inside the airways. This may cause coughing and difficulty breathing. There are different types of pneumonia. One type can develop while a person is in a hospital. A different type is called community-acquired pneumonia. It develops in people who are not, and have not recently been, in the hospital or another type of health care facility. What are the causes? This condition may be caused by: Viruses. This is the most common cause of pneumonia. Bacteria. Community-acquired pneumonia is often caused by Streptococcus pneumoniae bacteria. These bacteria are often passed from one person to another by breathing in droplets from the cough or sneeze of an infected person. Fungi. This is the least common cause of pneumonia. What increases the risk? The following factors may make you more likely to develop this condition: Having a chronic disease, such as chronic obstructive pulmonary disease (COPD), asthma, congestive heart failure, cystic fibrosis, diabetes, or kidney disease. Having early-stage or late-stage HIV. Having sickle cell disease. Having had your spleen removed (splenectomy). Having poor dental hygiene. Having a medical condition that increases the risk of breathing in (aspirating) secretions from your own mouth and nose. Having a weakened body defense system (immune system). Being a smoker. Traveling to areas where pneumonia-causing germs commonly exist. Being around animal habitats or animals that have pneumonia-causing germs, including birds, bats, rabbits, cats, and farm animals. What are the signs or symptoms? Symptoms of this condition include: A dry cough. A wet (productive) cough. Fever. Sweating. Chest pain, especially when breathing deeply or coughing. Rapid breathing or difficulty breathing. Shortness of breath. Shaking chills. Fatigue. Muscle aches. How is this diagnosed? This condition may be diagnosed based on: Your medical history. A physical exam. You may also have tests, including: Chest X-rays. Tests of your blood oxygen level and other blood gases. Tests on blood, mucus (sputum), fluid around your lungs (pleural fluid), and urine. If your pneumonia is severe, other tests may be done to find the exact cause of your illness. How is this treated? Treatment for this condition depends on many factors, such as the cause of your pneumonia, the medicines you take, and other medical conditions that you have. For most adults, treatment and recovery from pneumonia may occur at home. In some cases, treatment must happen in a hospital. Treatment may include: Medicines that are given by mouth or through an IV, including: ? Antibiotic medicines, if the pneumonia was caused by bacteria. ? Antiviral medicines, if the pneumonia was caused by a virus. Being given extra oxygen. Respiratory therapy. Although rare, treating severe pneumonia may include: Using a machine to help you breathe (mechanical ventilation). This is done if you are not breathing well on your own and you cannot maintain a safe blood oxygen level. Thoracentesis. This is a procedure to remove fluid from around one lung or both lungs to help you breathe better. Follow these instructions at home: Medicines Take mpif-fsj-zozwfqq and prescription medicines only as told by your health care provider. ? Only take cough medicine if you are losing sleep. Be aware that cough medicine can prevent your body's natural ability to remove mucus from your lungs. If you were prescribed an antibiotic medicine, take it as told by your health care provider. Do not stop taking the antibiotic even if you start to feel better. General instructions Sleep in a semi-upright position at night. Try sleeping in a reclining chair, or place a few pillows under your head. Rest as needed and get at least 8 hours of sleep each night. Drink enough water to keep your urine pale yellow. This will help to thin out mucus secretions in your lungs. Eat a healthy diet that includes plenty of vegetables, fruits, whole grains, low-fat dairy products, and lean protein. Do not use any products that contain nicotine or tobacco, such as cigarettes, e-cigarettes, and chewing tobacco. If you need help quitting, ask your health care provider. Keep all follow-up visits as told by your health care provider. This is important. How is this prevented? You can lower your risk of developing community-acquired pneumonia by: Getting a pneumococcal vaccine. There are different types and schedules of pneumococcal vaccines. Ask your health care provider which option is best for you. Consider getting the vaccine if: ? You are older than 65 years of age. ? You are older than 19 years of age and are undergoing cancer treatment, have chronic lung disease, or have other medical conditions that affect your immune system. Ask your health care provider if this applies to you. Getting an influenza vaccine every year. Ask your health care provider which type of vaccine is best for you. Getting regular checkups from your dentist. Washing your hands often. If soap and water are not available, use hand adjunct professor of law. Contact a health care provider if: You have a fever. You are losing sleep because you cannot control your cough with cough medicine. Get help right away if: You have worsening shortness of breath. You have increased chest pain. Your sickness becomes worse, especially if you are an older adult or have a weakened immune system. You cough up blood. Summary Pneumonia is an infection of the lungs. Community-acquired pneumonia develops in people who have not been in the hospital. It can be caused by bacteria, viruses, or fungi. This condition may be treated with antibiotics or antiviral medicines. Severe cases may require hospitalization, mechanical ventilation, and other procedures to drain fluid from the lungs. This information is not intended to replace advice given to you by your health care provider. Make sure you discuss any questions you have with your health care provider. Document Released: 03/30/2006 Document Revised: 11/25/2018 Document Reviewed: 11/25/2018 [employer] Patient Education [employer]. Pneumonia (Adult) Pneumonia is an infection deep within the lungs. It is in the small air sacs (alveoli). Pneumonia may be caused by a virus or bacteria. Pneumonia caused by bacteria is usually treated with an antibiotic. Severe cases may need to be treated in the hospital. Milder cases can be treated at home. Symptoms usually start to get better during the first 2 days of treatment. Home care Follow these guidelines when caring for yourself at home: Rest at home for the first 2 to 3 days, or until you feel stronger. Don t let yourself get overly tired when you go back to your activities. Stay away from cigarette smoke yours or other people s. You may use acetaminophen or ibuprofen to control fever or pain, unless another medicine was prescribed. If you have chronic liver or kidney disease, talk with your healthcare provider before using these medicines. Also talk with your provider if you ve had a stomach ulcer or gastrointestinal bleeding. Don t give aspirin to anyone younger than 18 years of age who is ill with a fever. It may cause severe liver damage. Your appetite may be poor, so a light diet is fine. Drink 6 to 8 glasses of fluids every day to make sure you are getting enough fluids. Beverages can include water, sport drinks, sodas without caffeine, juices, tea, or soup. Fluids will help loosen secretions in the lung. This will make it easier for you to cough up the phlegm (sputum). If you also have heart or kidney disease, check with your healthcare provider before you drink extra fluids. Take antibiotic medicine prescribed until it is all gone, even if you are feeling better after a few days. Follow-up care Follow up with your healthcare provider in the next 2 to 3 days, or as advised. This is to be sure the medicine is helping you get better. If you are 65 or older, you should get a pneumococcal vaccine and a yearly flu (influenza) shot. You should also get these vaccines if you have chronic lung disease like asthma, emphysema, or COPD. Recently, a second type of pneumonia vaccine has become available for everyone over 65 years old. This is in addition to the previous vaccine. Ask your provider about this. When to seek medical advice Call your healthcare provider right away if any of these occur: You don t get better within the first 48 hours of treatment Shortness of breath gets worse Rapid breathing (more than 25 breaths per minute) Coughing up blood Chest pain gets worse with breathing Fever of 100.4 F (38 C) or higher that doesn t get better with fever medicine Weakness, dizziness, or fainting that gets worse Thirst or dry mouth that gets worse Sinus pain, headache, or a stiff neck Chest pain not caused by coughing [id number] [employer]. [address] [place] [address]. All rights reserved. This information is not intended as a substitute for professional medical care. Always follow your healthcare professional's instructions. Additional Information VACCINATE! IT SAVES LIVES! Members of the community who have not yet received the COVID-19 vaccine and would like to receive it can visit one of [facility] vaccine clinics. There are many vaccine clinic locations within the [facility]. For locations and available times, please visit [email or web address] It is important to note that some COVID mobile vaccine clinics are held outdoors and may be canceled in rainy or stormy conditions. To learn more about pediatric vaccinations (ages 5-11), we invite you to visit the [facility] webpage. [email or web address] [email or web address] To learn more about the COVID-19 vaccine, we invite you to visit the [facility] website for a list of frequently asked questions. [email or web address] [facility] Patient Portal Access Instructions: Stay connected with your healthcare team and access your personal medical information anytime with the [facility] Patient Portal.If you would like a full copy of your medical records, please contact the [facility] Medical Records Department, Thursday through Thursday between 8a.m. and 4:30p.m. Please follow the directions below to access the portal: 1.Access the email account you provided upon registration to the [facility].2.Look for an invitation email from [facility].3.Open the email and access the invitation link: Accept Invitation to [facility]4.Fill in the required campuzano to create your account. Sign into [email or web address] with your username and password that you created in the above steps to stay up to date. You can then view a summary of results, a summary of your visits, and the ability to download your summaries to your computer or send the information securely to a physician. Remember that your healthcare information is confidential, so carefully consider who you will allow to register on the [facility] Patient Portal for access to your information. You can also access the [email or web address] Patient Portal on the [employer] joyce. Simply click on Health Records under Health Data and then click on the Tammie logo. HOW TO SAFELY DISPOSE OF PRESCRIPTION MEDICATIONS Please use one of the following methods to safely dispose of your unused medications. 1.Use a drug disposal kit: the drug disposal pouch allows you to safely discard your old and unused drugs. Ask your nurse to give you one when you are discharged.2.Visit a local take-back location: Many local pharmacies and police departments have programs that collect old and unwanted prescription drugs. Call your local pharmacy or go to http://bit.[employer]/1X6Vj5u to find one close to you.3.Make use of household items: Use cat litter or old coffee grounds to dispose medications if other options are not available. Mix your drugs with these household products, seal them in an airtight container and throw it into the garbage. Call [facility]: [phone] to be sure your drugs can be disposed of in this way. Some medicines may require a different approach.4.Never flush your medications down the toilet. IF YOU HAVE BEEN PRESCRIBED AN OPIOID FOR PAIN If you have been prescribed an opioid (such as hydrocodone, oxycodone or morphine), it is critical to understand the possible side effects and risks of opioid pain medications. Even when taken as directed, opioids can have several side effects including: Tolerance, meaning you might need to take more of a medication for the same pain relief. Nausea, vomiting and/or constipation. Sleepiness, dizziness, dry mouth, confusion, depression or itching. Physical dependence, meaning you have withdrawal symptoms when a medication is stopped, can develop within a few days. KNOW YOUR RESPONSIBILITIES It is important to know exactly how much and how often to take the opioid pain medications you are prescribed. Never take opioids in higher amounts or more often than prescribed. Do not combine opioids with alcohol or other drugs that cause drowsiness, such as benzodiazepines, also known as benzos, including diazepam and alprazolam, muscle relaxants or sleep aids. Never sell or share prescription opioids. This is illegal. Store opioids in a secure place and out of reach of others (including children, family, friends and visitors). The last page of this document has been signed and retained as a CHART COPY. Signatures Patient Education Materials Influenza, Adult Community-Acquired Pneumonia, Adult Pneumonia (Adult) Medication Leaflets cefdinir, oseltamivir My discharge plan and instructions have been reviewed and explained to me and I,GENET COBB understand my current condition and have read and understand these discharge instructions. I have received a written copy of the plan/instructions. If I have questions, I am aware that I should contact my doctor. 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 Harris Rodriguez RN Digitally Signed by LAVELLE Rodriguez on 03/31/2022 06:20 AM [facility] 03-30-2022 Note ORIGINAL EXAMINATION: CTA OF THE CHEST03/30/2022 11:36 am TECHNIQUE: CTA of the chest was performed after the administration of intravenous contrast. Multiplanar reformatted images are provided for review. MIP images are provided for review. Automated exposure control, iterative reconstruction, and/or weight based adjustment of the mA/kV was utilized to reduce the radiation dose to as low as reasonably achievable. COMPARISON: None. HISTORY: ORDERING SYSTEM PROVIDED HISTORY: Reason for Exam: hypoxia, SOB FINDINGS: There is adequate contrast opacification of the pulmonary arterial vasculature. There is no filling defect or vessel cutoff to indicate pulmonary embolus to the level of the segmental arteries. The thoracic aorta is normal in caliber. The heart is normal in size. No pericardial effusion or thickening. The trachea is normal. There is no lymphadenopathy. There are scattered consolidations throughout the bilateral lungs.. No pneumothorax or pleural fluid. The visualized osseous structures are intact. Limited images of the upper abdomen are noncontributory. IMPRESSION: No pulmonary emboli to the level of the segmental arteries. Scattered consolidations throughout the bilateral lungs most consistent with pneumonia. Interpreted by: Akshat Mittal MD Preliminary Report By: Akshat Mittal MD Electronically signed By Akshat Mittal MD Dictated Date: 03/30/2022 12:00:54 PM Prelim Date: 03/30/2022 12:05:01 PM Sign Date: 03/30/2022 12:05:01 PM Ordering Provider: MAHENDRA FAJARDO [facility] 03-30-2022 Note ORIGINAL EXAMINATION: CTA OF THE CHEST03/30/2022 11:36 am TECHNIQUE: CTA of the chest was performed after the administration of intravenous contrast. Multiplanar reformatted images are provided for review. MIP images are provided for review. Automated exposure control, iterative reconstruction, and/or weight based adjustment of the mA/kV was utilized to reduce the radiation dose to as low as reasonably achievable. COMPARISON: None. HISTORY: ORDERING SYSTEM PROVIDED HISTORY: Reason for Exam: hypoxia, SOB FINDINGS: There is adequate contrast opacification of the pulmonary arterial vasculature. There is no filling defect or vessel cutoff to indicate pulmonary embolus to the level of the segmental arteries. The thoracic aorta is normal in caliber. The heart is normal in size. No pericardial effusion or thickening. The trachea is normal. There is no lymphadenopathy. There are scattered consolidations throughout the bilateral lungs.. No pneumothorax or pleural fluid. The visualized osseous structures are intact. Limited images of the upper abdomen are noncontributory. IMPRESSION: No pulmonary emboli to the level of the segmental arteries. Scattered consolidations throughout the bilateral lungs most consistent with pneumonia. Interpreted by: Akshat Mittal MD Preliminary Report By: Akshat Mittal MD Electronically signed By Akshat Mittal MD Dictated Date: 03/30/2022 12:00:54 PM Prelim Date: 03/30/2022 12:05:01 PM Sign Date: 03/30/2022 12:05:01 PM Ordering Provider: MAHENDRA FAJARDO [facility] 03-30-2022 Note Date of Service 03/30/2022 Chief Complaint Shortness of breath Subjective Patient seen and evaluated while resting in bed. She states that she is actually feeling a little better this morning. She appears to be in no acute distress. Discussed with patient the fact that her heart rate increases with any activity and the need to rule out a pulmonary embolism. Patient verbalizes understanding of this. She denies any new problems or concerns this morning. She feels like she slept better last night and this is helping her mental health. Patient had a melt down last evening and was wanting to sign out AMA. This provider, along with respiratory and nursing to the room, and patient finally agreeable to stay at the hospital. We will move her to a bigger room after CT as this may help her mental health more. Patient denies any fever, chills, cough, chest pain, abdominal pain, nausea or dysuria. All questions answered. Objective Vitals and Measurements T: 36.5 C (Oral) TMIN: 36.3 C (Oral) TMAX: 36.7 C (Oral) HR: 94(Monitored) RR: 20 BP: 124/84 SpO2: 92% WT: 106.2 kg Intake and Output 7AM Yesterday to 7AM Today Intake and Output (Last 24 hours) Intake Oral Intake 1420.00 Output Stool Count 1.00 Urine Count 9.00 Emesis Count 0.00 Total Summary Total Intake 1420.00 Total Output 0.00 Fluid Balance 1420.00 Physical Exam General: No acute distress. Patient is alert and appropriate. Skin: No rash. Skin is warm, dry and intact. HEENT: Head is normocephalic, atraumatic. Pupils are equal, round and reactive. Neck: Supple. No lymphadenopathy, thyromegaly. Lungs: Faint, scattered rhonchi anteriorly, diminished in posterior campuzano. Nonlabored. Heart: Heart is regular rhythm, S1, S2. No murmurs, gallops or rubs. Abdomen: Abdomen is soft, nontender, obese. Bowels sounds present in all quadrants. Extremities: No clubbing, cyanosis, or edema. Peripheral pulses palpable. No calf tenderness. Neurological: Patient is awake and alert to person, place and time. Following simple commands, moving all extremities. Weight Current Weight Dosing Weight: 106.2 kg (03/30/22) Current Weight: 106.2 kg (03/30/22) Dosing Weight: 165 kg (03/30/22) Current Weight: 106.4 kg (03/29/22) Medications Medications (22) Active Scheduled: (12) albuterol - ipratropium 2.5 mg-0.5 mg/3 mL Inhal Jessica UD 3 mL, Inhalation, QIDRT cefTRIAXone 1 g, IV Piggyback, qDay insulin lispro 100 units/mL Soln (3 mL) Give 0-5 units/dose, Subcutaneous, TIDAC lamoTRIgine 100 mg tablet 150 mg 1.5 tab(s), Oral, BID lisinopril 5 mg tablet 10 mg 2 tab(s), Oral, qDay metformin 500 mg Tablet 500 mg 1 tab(s), Oral, BID Nicoderm patch REMOVAL 1 EA, Miscellaneous, q24h nicotine 21 mg/24 hr ER patch 21 mg 1 patch(es), Transdermal, q24h oseltamivir 75 mg capsule 75 mg 1 cap(s), Oral, BID pantoprazole 20 mg EC tablet 40 mg 2 tab(s), Oral, qDayAC predniSONE 20 mg tablet 20 mg 1 tab(s), Oral, qDayM predniSONE 5 mg tablet 10 mg 2 tab(s), Oral, qDayM Continuous: (0) PRN: (10) acetaminophen 325 mg Tablet 650 mg 2 tab(s), Oral, q4h acetaminophen 325 mg Tablet 650 mg 2 tab(s), Oral, q4h albuterol - ipratropium 2.5 mg-0.5 mg/3 mL Inhal Jessica UD 3 mL, Inhalation, q4hRT benzonatate 100 mg Capsule 100 mg 1 cap(s), Oral, TID calcium carbonate 500 mg Chewable 500 mg 1 tab(s), Chewed, TID diphenhydramine 25 mg tablet 50 mg 2 tab(s), Oral, qHS guaifenesin 100 mg/5 mL 120 mL liquid 200 mg 10 mL, Oral, q4h haloperidol 1 mg Tablet 1 mg 1 tab(s), Oral, q3h melatonin 3 mg tablet 6 mg 2 tab(s), Oral, qHS ondansetron 2 mg/ 1 mL 2 mL INJ 4 mg 2 mL, IV Push, q4h Lab Results 03/29 06:34 WBC: 12.7 H Hgb: 13.7 Hct: 40.8 Platelet: 325 Neutrophil %: 81.2 H Glucose Level: 143 H Sodium Level: 142 Potassium Level: 3.6 BUN: 7 Creatinine Lvl (s): 0.70 Imaging Results and Diagnostics XR Chest 1 View Result Date: March 28, 2022 Verified By: CANDI SOUZA MD CLINICAL STATEMENT: IMPRESSION: Mild right upper lung airspace disease concerning for pneumonia with the provided symptomatology. Follow-up to resolution recommended. EKG No qualifying data available. Assessment/Plan 1. Pneumonia Acute, new onset *Continue Ceftriaxone 1 gram IV daily. *Discontinue Azithromycin IV - atypicals negative. *Continue duoneb aerosols as needed and scheduled. *Continue supplemental oxygen as needed to maintain oxygen saturations above 92%. *Wean oxygen as able. *Legionella and strep pneumoniae - negative. *Mycoplasma antibody - negative. *Encourage IS 10x/hr while awake. *CTA PE negative for PE - consolidations confirmed. *Repeat CBC and BMP in the am. 2. Influenza A Acute, new onset *Continue Tamiflu 75 mg PO BID, day 2 of 5. *Patient may be out of the window but due to oxygen requirements and admission, may get some benefit from starting this. *Plan otherwise as above. 3. Shortness of breath Acute, new onset, secondary to CAP and influenza A *Plan as above. *Send for CTA PE protocol to rule out PE. 4. Diabetes type 2, controlled Chronic *Blood sugar checks before meals and at bedtime. *Cover with sliding scale insulin. *Continue diabetic diet. *Blood glucose goal of 180 or less and avoid hypoglycemia - meeting goal with current therapy. *Continue current home medication. 5. Tobacco use Chronic *Encourage cessation. *May have nicotine patch daily. 6. Generalized anxiety disorder Chronic *Continue current home medications. *Continue PRN Haldol as needed for agitation. DVT prophylaxis with SCDs, ambulation. Code status: Full Code. Labs, diagnostic test and progress notes reviewed as noted in HPI. Plan of care discussed with patient. All questions answered. Patient verbalizes understanding and is agreeable with plan of care. This case was discussed with collaborating physician, Dr. Zelda Thompson. Time Spent 35 minutes Digitally Signed by MAHENDRA FAJARDO on 03/30/2022 12:22 PM [facility] 03-30-2022 Nurse Progress note Patient refusing to have morning labs drawn on 03/30/22. ZEE VALDERRAMA Digitally Signed by LAVELLE Rodriguez on 03/30/2022 05:06 AM [facility] 03-29-2022 Note . MICRO - Microbiology PROCEDURE: Streptococcus Pneumoniae Urine Antig [^1 *1] SOURCE: Urine, Clean Catch BODY SITE: COLLECTED DATE/TIME: 03/28/2022 19:53 EST RECEIVED DATE/TIME: 03/29/2022 14:40 EST START DATE/TIME: 03/29/2022 14:40 EST FREE TEXT SOURCE: FINAL REPORTS Final Report [] Verified Date/Time/Personnel: 03/29/2022 15:08 EST Presumptive negative for pneumococcal pneumonia, suggesting no current or recent pneumococcal infection. Infection due to Strep pneumoniae cannot be ruled out since the antigen present in the sample may be below the detection limit of the test. Interpretive Data ^1: Streptococcus Pneumoniae Urine Antig This test has not been evaluated on patients taking antibiotics for greater than 24 hours or on patients who have recently completed an antibiotic regimen. The accuracy of this test has not been proven in young children. Performing Locations *1: This test was performed at: [address], [facility] , [facility] ([place]) 03-29-2022 Note . MICRO - Microbiology PROCEDURE: Legionella Urine Ag [*1] SOURCE: Urine BODY SITE: COLLECTED DATE/TIME: 03/29/2022 06:04 EST RECEIVED DATE/TIME: 03/29/2022 14:40 EST START DATE/TIME: 03/29/2022 14:40 EST FREE TEXT SOURCE: FINAL REPORTS Final Report [] Verified Date/Time/Personnel: 03/29/2022 15:07 EST Presumptive negative for L. pneumophila serogroup 1 antigen in urine, suggesting no recent or current infection. Legionnaire's disease cannot be ruled out since other serogroups and species may also cause disease. Performing Locations *1: This test was performed at: [address], [facility] , [facility] 1. Pneumonia Acute, new onset *Continue Ceftriaxone 1 gram IV daily. *Continue Azithromycin 500 mg IV daily. *Continue duoneb aerosols as needed and scheduled. *Continue supplemental oxygen as needed to maintain oxygen saturations above 92%. *Wean oxygen as able. *Urine sent to test for Legionella and strep pneumoniae - pending. *Mycoplasma antibody - pending. *Encourage IS 10x/hr while awake. *Repeat CBC and BMP in the am. 2. Influenza A Acute, new onset *Start Tamiflu 75 mg PO BID. *Patient may be out of the window but due to oxygen requirements and admission, may get some benefit from starting this. *Plan otherwise as above. 3. Shortness of breath Acute, new onset, secondary to CAP and influenza A *Plan as above. 4. Diabetes type 2, controlled Chronic *Blood sugar checks before meals and at bedtime. *Cover with sliding scale insulin. *Continue diabetic diet. *Blood glucose goal of 180 or less and avoid hypoglycemia. *Continue current home medication. 5. Tobacco use Chronic *Encourage cessation. *May have nicotine patch daily. 6. Generalized anxiety disorder Chronic *Continue current home medications. DVT prophylaxis with SCDs, ambulation. Code status: Full Code. Labs, diagnostic test and progress notes reviewed as noted in HPI. Plan of care discussed with patient. All questions answered. Patient verbalizes understanding and is agreeable with plan of care. This case was discussed with collaborating physician, Dr. Quyen Gaffney. [facility] 12-17-2022 Note Date of Service 03/29/2022 Chief Complaint Presents with shortness of breath for the past couple of days History of Present Illness Patient is a 27-year-old female, who follows with Dr. Alejandra Harris with a past medical history significant for bipolar disorder, anxiety, depression and obesity[facility]. Patient states that she developed shortness of breath a few days ago and presented to the urgent care in [place]. She was checkedfor viruses and states she tested positive for influenza B. She was started on steroids and discharged home. She only took one dose of the steroid and felt that her shortness of breath was worsening so presented here for further evaluation last evening. Patient also reports nausea and decreased oral intake. She adds, though, that the nausea is not new and she has been following with GI and has anEGD scheduled. She has been taking in adequate fluids. Her cough is nonproductive. She also reportsfever, chills, generalized body aches. She denies chest pain, diarrhea or dysuria. In the emergency department, chest x-ray revealed mild right upper lung airspace disease concerningfor pneumonia with the provided symptomatology. CBC unremarkable. BMP significant for glucose 143 and potassium 3.4. Patient was negative for COVID-19, Flu B and RSV but tested positive for Flu A. Patient was administered Ceftriaxone 2 grams IV, Azithromycin 500 mg IV, Solumedrol 125 mg IV, and multiple aerosols in the ED. Patient was transferred to telemetry for further evaluation and treatment.We will continue Ceftriaxone 1 gram IV daily and Azithromycin 500 mg IV daily. We will continue patient's steroid taper PO. We will continue aerosols as needed and scheduled. Repeat CBC and BMP in the am. Review of Systems Review of Systems: Reviewed in detail, including general health, HEENT, cardiovascular, respiratory, gastrointestinal, genitourinary, endocrine, musculoskeletal, neurologic, vascular, skin, and psychiatric. All are negative except for those listed in the History of Present Illness. Physical Exam Vitals and Measurements T: 36.4 C (Oral) TMIN: 36.4 C (Oral) TMAX: 37.4 C (Oral) HR: 100(Apical) RR: 20 BP: 128/88 SpO2: 90% HT: 160 cm WT: 106.4 kg BMI: 41.56 Weight Current Weight Dosing Weight: 106.4 kg (03/28/22) Current Weight: 106.4 kg (03/29/22) Dosing Weight: 109 kg (03/28/22) General: No acute distress. Patient is alert and appropriate. Skin: No rash. Skin is warm, dry and intact. HEENT: Head is normocephalic, atraumatic. Pupils are equal, round and reactive. Neck: Supple. No lymphadenopathy, thyromegaly. Lungs: Scattered rhonchi heard anteriorly, diminished in posterior campuzano. Unlabored. Heart: Heart is regular rhythm, S1, S2. No murmurs, gallops or rubs. Abdomen: Abdomen is soft, nontender, obese. Bowels sounds present in all quadrants. Extremities: No clubbing, cyanosis, or edema. Peripheral pulses palpable. No calf tenderness. Neurological: Patient is awake and alert to person, place and time. Following simple commands, moving all extremities. Lab Results 03/29 06:34 WBC: 12.7 H Hgb: 13.7 Hct: 40.8 Platelet: 325 Neutrophil %: 81.2 H Glucose Level: 143 H Sodium Level: 142 Potassium Level: 3.6 BUN: 7 Creatinine Lvl (s): 0.70 03/28 16:09 WBC: 10.3 Hgb: 15.6 Hct: 45.4 Platelet: 358 Neutrophil %: 75.1 Glucose Level: 143 H Sodium Level: 139 Potassium Level: 3.4 L BUN: 8 Creatinine Lvl (s): 0.94 Imaging Results and Diagnostics XR Chest 1 View Result Date: March 28, 2022 Verified By: CANDI SOUZA MD CLINICAL STATEMENT: IMPRESSION: Mild right upper lung airspace disease concerning for pneumonia with the provided symptomatology. Follow-up to resolution recommended. Assessment/Plan 1. Pneumonia Acute, new onset *Continue Ceftriaxone 1 gram IV daily. *Continue Azithromycin 500 mg IV daily. *Continue duoneb aerosols as needed and scheduled. *Continue supplemental oxygen as needed to maintain oxygen saturations above 92%. *Wean oxygen as able. *Urine sent to test for Legionella and strep pneumoniae - pending. *Mycoplasma antibody - pending. *Encourage IS 10x/hr while awake. *Repeat CBC and BMP in the am. 2. Influenza A Acute, new onset *Start Tamiflu 75 mg PO BID. *Patient may be out of the window but due to oxygen requirements and admission, may get some benefit from starting this. *Plan otherwise as above. 3. Shortness of breath Acute, new onset, secondary to CAP and influenza A *Plan as above. 4. Diabetes type 2, controlled Chronic *Blood sugar checks before meals and at bedtime. *Cover with sliding scale insulin. *Continue diabetic diet. *Blood glucose goal of 180 or less and avoid hypoglycemia. *Continue current home medication. 5. Tobacco use Chronic *Encourage cessation. *May have nicotine patch daily. 6. Generalized anxiety disorder Chronic *Continue current home medications. DVT prophylaxis with SCDs, ambulation. Code status: Full Code. Labs, diagnostic test and progress notes reviewed as noted in HPI. Plan of care discussed with patient. All questions answered. Patient verbalizes understanding and is agreeable with plan of care. This case was discussed with collaborating physician, Dr. Quyen Gaffney. Problem List/Past Medical History Ongoing Anxiety Depression, major, recurrent, moderate Generalized anxiety disorder Hx of cholecystectomy Substance use disorder Historical Bipolar disease, chronic Procedure/Surgical History Cholecystectomy Medications Home Medications (4) Active lamoTRIgine 150 mg oral tablet 150 mg = 1 tab(s), Oral, BID lisinopril 10 mg oral tablet 10 mg = 1 tab(s), Oral, qDay metFORMIN 500 mg oral tablet (IR) 500 mg = 1 tab(s), Oral, BID predniSONE 10 mg oral tablet Allergies Inderal amoxicillin Social History Smoking Status - 11/01/2017 Former smoker Alcohol Use: Current. Frequency: 1-2 times per month., 05/15/2017 Substance Abuse Use: Current. Type: Marijuana, Methamphetamines., 01/10/2020 Tobacco Nicotine Use: 10 or more cigarettes (1/2 pack or more)/day in last 30 days., 01/10/2020 Family History HTN - Hypertension: Mother. Immunizations No qualifying data available. Code Status Code Status - Ordered -- 03/28/22 18:26:00 EST, Full Code, Constant Order Digitally Signed by MAHENDRA FAJARDO on 03/29/2022 12:48 PM [facility]12-16-2022 SARS-CoV-2 (COVID-19) RNA LAWSON+probe Ql (Nph)Negative *NA* (03/28/22 6:16 PM)AO Auto Urine [id number] Note ORIGINAL EXAMINATION: ONE XRAY VIEW OF THE CHEST 03/28/2022 4:47 pm COMPARISON: None. HISTORY: ORDERING SYSTEM PROVIDED HISTORY: Reason for Exam: SOB/cough/fever FINDINGS: The cardiomediastinal silhouette is normal. No pleural effusion, vascular congestion, or pneumothorax. Mild right upper lung airspace disease. IMPRESSION: Mild right upper lung airspace disease concerning for pneumonia with the provided symptomatology. Follow-up to resolution recommended. Interpreted by: Candi Souza MD Preliminary Report By: Candi Souza MD Electronically signed By Candi Souza MD Dictated Date: 03/28/2022 4:51:17 PM Prelim Date: 03/28/2022 4:52:18 PM Sign Date: 03/28/2022 4:52:18 PM Ordering Provider: [facility]12-16-2022 Note ORIGINAL EXAMINATION: ONE XRAY VIEW OF THE CHEST 03/28/2022 4:47 pm COMPARISON: None. HISTORY: ORDERING SYSTEM PROVIDED HISTORY: Reason for Exam: SOB/cough/fever FINDINGS: The cardiomediastinal silhouette is normal. No pleural effusion, vascular congestion, or pneumothorax. Mild right upper lung airspace disease. IMPRESSION: Mild right upper lung airspace disease concerning for pneumonia with the provided symptomatology. Follow-up to resolution recommended. Interpreted by: Candi Souza MD Preliminary Report By: Candi Souza MD Electronically signed By Candi Souza MD Dictated Date: 03/28/2022 4:51:17 PM Prelim Date: 03/28/2022 4:52:18 PM Sign Date: 03/28/2022 4:52:18 PM Ordering Provider: [facility]12-14-2022 Influenza virus A and B RNA and SARS-CoV-2 (COVID-19) N gene panel LAWSON+probe (Resp)COVID 19 RESULT: SARS-CoV-2 (Agent of COVID-19) Not Detected by RT-PCR or equivalent method. cooper [id number]-[employer] (MARLENY)_EUA This test was developed and its performance characteristics determined by [facility] [place]. This test has been authorized by FDA under an Emergency Use Authorization (EUA). This test has been validated in accordance with the FDA's Guidance Document Policy for DiagnosticsTesting in Laboratories Certified to Perform High Complexity Testing under CLIA prior to Emergency use Authorization for Coronavirus Disease 2019 during the Public Health Emergency issued on June 11, 2019. Test performed by [facility], [facility] [place], [address] [place] [address]. INFLUENZA A PCR: Positive for Influenza A by RT-PCR INFLUENZA B PCR: Negative for Influenza B by RT-PCRPeoples HospitalComment on above: Performed By: #### [id number] #### [facility] CLIA [id number] [address] [place] [address] [place] OF [id number] NoteHNO ID: [id number] Author: Juliann Nunn APRN.MUSIC ENGRAVER Service: ? Author Type: Nurse Practitioner Type: Progress Notes Filed: 03/26/2022 2:41 PM Note Text: CC: Patient presents with: Cough: Chills, body aches x 2 days HPI: Genet Cobb is a 27 year old female who presents to the office with complaint of head congestion, cough, nonproductive, and chills for 2 days. Symptoms are staying the same. Associated symptoms includes body aches. Denies nausea, vomiting , and diarrhea. Treatments tried include nothing so far. with no relief of symptoms. Sick contacts: unknown. History of asthma, frequent episodes of bronchitis, chronic bronchitis, bronchiectasis or COPD: No Smoker: No Seasonal/environmental allergies: No The ROS is otherwise negative. The patient's pmh, medications, allergies, and past visits are reviewed. PHYSICAL EXAM: BP 128/72 Pulse 115 Temp (!) 38.2 ?C (100.7 ?F) Resp 20 Wt 108.6 kg (239 lb 6.4 oz) LMP 07/21/2021 SpO2 95% BMI 41.09 kg/m? General appearance: alert, cooperative, pleasant, in no acute distress Head: Normocephalic Eyes: EOM's intact, conjunctiva pink and moist, no icterus, sclera white, non-injected Ears: Right ear: External ear/canal- Normal, TM - clear with good landmarks. Left ear: External ear/canal- Normal, TM - clear with good landmarks Oropharynx:moist without lesions, No erythema, exudates or tonsillar hypertrophy. Heart: Negative. RRR without obvious murmur, gallop, or rubs. No ectopy. Lungs: wheezing diffusely PAST MEDICAL HISTORY Diagnosis Date Anxiety Elevated blood pressure 01/07/2011 Excessive anger Headache(784.0) 03/13/2011 History of drug use meth and marajuana IBS (irritable bowel syndrome) Left ventricular hypertrophy Overweight(278.02) 01/07/2011 PAST SURGICAL HISTORY Procedure Laterality Date COLONOSCOPY FLX DX W/COLLJ SPEC WHEN PFRMD 07/04/2015 Colonoscopy LAPS SURG CHOLECYSTECTOMY W/CHOLANGIOGRAPHY 10-07-13 ALLERGIES Amoxicillin and Inderal [Propranolol] MEDICATIONS lamoTRIgine (LAMICTAL) 200 mg tablet Take by mouth. medroxyPROGESTERone (PROVERA) 5 mg tablet Take by mouth. metFORMIN (GLUCOPHAGE) 500 mg tablet Take by mouth. lisinopril (ZESTRIL, PRINIVIL) 10 mg tablet Take 1 tablet by mouth once daily. predniSONE (DELTASONE) 10 mg tablet Take 4 tabs daily for 3 days, then 2 tabs daily for 3 days, then 1 tab daily for 3 days with food. citalopram (CELEXA) 20 mg tablet Take 20 mg by mouth once daily. (Patient not taking: Reported on 03/26/2022) omeprazole (PRILOSEC) 40 mg capsule Take 1 capsule by mouth once daily. (Patient not taking: Reported on 03/26/2022) mupirocin (BACTROBAN) 2 % ointment Apply 1 application to affected area three times daily. (Patient not taking: Reported on 01/28/2020 ) busPIRone (BUSPAR) 10 mg tablet Take 1 tablet by mouth twice daily. Levonorgestrel-Ethinyl Estrad 0.1mg - 20mcg per tablet Take 1 tablet by mouth as directed. COMPOUNDED PRESCRIPTION Consult why weight program (Patient not taking: Reported on 03/26/2022) albuterol HFA (PROAIR HFA) 90 mcg/actuation inhaler Inhale 2 Puffs as instructed every 4 hours as needed for Wheezing/Shortness of Breath. (Patient not taking: Reported on 03/26/2022) risperiDONE (RISPERDAL) 2 mg tablet Take 1 tablet by mouth twice daily. (Patient not taking: Reported on 01/28/2020 ) FAMILY HISTORY Problem Relation Age of Onset Hypertension Mother Diabetes Mother None Father Diabetes Maternal Grandmother Thyroid Maternal Grandmother Diabetes Maternal Grandfather Asthma Paternal Grandmother Diabetes Maternal Aunt Hypertension Maternal Aunt Social History Tobacco Use Smoking status: Every Day Packs/day: 0.20 Types: Cigarettes Last attempt to quit: 05/14/2014 Years since quittin.8 Smokeless tobacco: Never Substance Use Topics Alcohol use: No Drug use: No ASSESSMENT/PLAN: 1. URI, acute - ICD9: 465.9, ICD10: J06.9 - COVID WITH FLUA+B, ROUTINE 9 day prednisone taper Prescription instructions reviewed with patient as applicable. Potential red flag symptoms discussed with the patient. Reviewed appropriate action plan to take if red flag symptoms occur. Patient agreeable to treatment plan. Juliann Nunn APRN.[facility]06-21-2022 History of Present illness Narrative* Issac Parmar APRN.[facility] - 10/01/2021 3:59 PM EDT Subjective HPI HPI Genet Cobb is a 26 year old female who presents today for CC of worsening right sided headache, states feels like she has a head injury also states she feels like she is loosing her vision. .Patient presents with: Headache: Pt reported [place] onset x3 days pain rated 6, reported Hx choking on water PAST MEDICAL HISTORY Diagnosis Date Anxiety Elevated blood pressure 01/07/2011 Excessive anger Headache(784.0) 03/13/2011 History of drug use meth and marajuana IBS (irritable bowel syndrome) Left ventricular hypertrophy Overweight(278.02) 01/07/2011 PAST SURGICAL HISTORY Procedure Laterality Date COLONOSCOPY FLX DX W/COLLJ SPEC WHEN PFRMD 07/04/2015 Colonoscopy LAPS SURG CHOLECYSTECTOMY W/CHOLANGIOGRAPHY 10-07-13 ALLERGIES Amoxicillin and Inderal [Propranolol] MEDICATIONS metFORMIN (GLUCOPHAGE) 500 mg tablet Take by mouth. lisinopril (ZESTRIL, PRINIVIL) 10 mg tablet Take 1 tablet by mouth once daily. citalopram (CELEXA) 20 mg tablet Take 20 mg by mouth once daily. omeprazole (PRILOSEC) 40 mg capsule Take 1 capsule by mouth once daily. albuterol HFA (PROAIR HFA) 90 mcg/actuation inhaler Inhale 2 Puffs as instructed every 4 hours as needed for Wheezing/Shortness of Breath. mupirocin (BACTROBAN) 2 % ointment Apply 1 application to affected area three times daily. busPIRone (BUSPAR) 10 mg tablet Take 1 tablet by mouth twice daily. Levonorgestrel-Ethinyl Estrad 0.1mg - 20mcg per tablet Take 1 tablet by mouth as directed. COMPOUNDED PRESCRIPTION Consult why weight program risperiDONE (RISPERDAL) 2 mg tablet Take 1 tablet by mouth twice daily. FAMILY HISTORY Problem Relation Age of Onset Hypertension Mother Diabetes Mother None Father Diabetes Maternal Grandmother Thyroid Maternal Grandmother Diabetes Maternal Grandfather Asthma Paternal Grandmother Diabetes Maternal Aunt Hypertension Maternal Aunt Social History Tobacco Use Smoking status: Current Every Day Smoker Packs/day: 0.20 Types: Cigarettes Last attempt to quit: 05/14/2014 Years since quittin.3 Smokeless tobacco: Never Used Substance Use Topics Alcohol use: No Drug use: No ROS Objective Blood pressure 126/78, pulse 103, temperature 36.7 C (98.1 F), resp. rate 16, weight 121.7 kg (268 lb 6.4 oz), last menstrual period 07/21/2021, SpO2 97 %. Physical Exam Constitutional: General: She is not in acute distress. Appearance: She is not toxic-appearing or diaphoretic. Comments: No apparent distress HENT: Head: Normocephalic and atraumatic. Pulmonary: Effort: Pulmonary effort is normal. No accessory muscle usage or respiratory distress. Neurological: Mental Status: She is alert and oriented to person, place, and time. ASSESSMENT/PLAN: 1. Headache, unspecified headache type - ICD9: 784.0, ICD10: R51.9 (primary diagnosis) Will refer to ER for unrelenting headache and now vision changes. 2. Vision loss - ICD9: 369.9, ICD10: H54.7 Issac Parmar APRN.MUSIC ENGRAVER [facility] History of Past illness Narrative* Problem Noted Date Resolved Date Elevated blood pressure 01/07/2011 08/21/19 documented as of this encounter (statuses as of 10/01/2021) [facility]09-27-2011 History of Past illness Narrative* Problem Noted Date Diagnosed Date Resolved Date Elevated blood pressure 01/07/201108/11 documented as of this encounter (statuses as of 03/17/2023) [facility] note* Diagnosis Headache, unspecified headache type- Primary Vision loss Unspecified visual loss documented in this encounter [facility] note* Diagnosis Acute cough- Primary [facility] N[facility] No data available for this section [facility] Summary Purpose Family History No Family History Records FoundNo Family History Records FoundNo Family History Records Found Advance Directives No Advanced Directives Records FoundDocuments on File Type Date Recorded 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 Advance Directive(s) 07/04/2015 8:35 AM Additional Source Comments INFORMATION SOURCE (unrecogn ized section and content) DATE CREATED AUTHOR AUTHOR'S ORGANIZ ATION 04/04/2022 [facility] ([place]) DATE CREATED AUTHOR AUTHOR'S ORGANIZ ATION 03/19/2023 [facility] Source Comments (unrecognize d section and content) In the event this informatio n is protected by the Federal Confidentiality of Alcohol and Drug Abuse Patient Records regulations: The Federal rules restrict any use of the information to criminally investigate or prosecute any alcohol or drug abuse patient.[facility] the event this information is protected by the Federal Confidentiality of Alcohol and Drug Abuse Patient Records regulations: The Federal rules restrict any use of the information to criminally investigate or prosecute any alcohol or drug abuse patient.[facility] Reason for Visit (unrecogniz ed section and content) Reason Comments Cough Raspy throat, sneezi ng runny nose x 1 days exposed to covid wants tested Care Teams (unrecognized sec tion and content) Commercial Ocean Clammer Relationship Specialty Start Date End Date Sergio Rodriges MD [id number] [facility] [place] [id number] PCP - General Internal Medicine 10/01/21 Care Team (unrecognized sect ion and content) Care Team Personnel Name: ALEJANDRA HARRIS MD Member Role: Primary Care Physician Address: Address: [facility] [place] [address]- Care Team Related Persons Name: FRANCISCO COBB Address: Home UNKNOWN [address] Name: CONSTANCE ORTIZ Name: CONSTANCE ORTIZ Name: CONSTANCE ORTIZ Name: CONSTANCE ORTIZ Name: CONSTANCE ORTIZ FOR RECORDS PERTAINING TO PATIENTS WHO ARE OR HAVE BEEN ENROLLED IN A CHEMICAL DEPENDENCY/SUBSTANCEABUSE PROGRAM, SOME INFORMATION MAY BE OMITTED. This clinical summary was aggregated from multiple sources. Caution should be exercised in using it in the provision of clinical care. This summary normalizes information from multiple sources, and as a consequence, information in this document may materially change the coding, format and clinical context of patient data. In addition, data may be omitted in some cases. CLINICAL DECISIONS SHOULD BE BASED ON THE PRIMARY CLINICAL RECORDS. [facility] [employer] [facility]. provides no warranty or guarantee of the accuracy or completeness of information in this document.
[2023-04-29 12:19] LABS: Absolute Lymphocyte Count 3.88 X10^3/uL (0.83-4.51); Absolute Neutrophil Count 4.2 X10^3/uL (2.0-7.7); Basophil# 0.08 X10^3/uL; Basophil% 0.8 % (0-1); Eosinophil# 0.86 X10^3/uL; Eosinophils% 8.9 % (0-5); Hematocrit 42.3 % (37-47); Hemoglobin 13.7 g/dL (12.0-15.0); Lymphocyte # 3.88 X10^3/ul (0.83-4.51); Lymphocyte % 40.2 % (19-41); Mean Corp Hgb Conc 32.4 g/dL (32-36); Mean Corpuscular Hgb 29.1 pg (27.0-32.0); Mean Platelet Vol. 9.7 fl (6.2-12.0); Monocyte# 0.57 X10^3/uL; Monocyte% 5.9 % (0-10); NRBC Flagged by Analyzer 0 % (0-5); Neutrophil # 4.22 X10^3/uL (2.7-7.7); Neutrophil % 43.9 % (47-70); Platelet Count 355 K/mm3 (150-450); RBC Distribution Width CV 13.1 % (11.6-14.6); RBC Distribution Width SD 43.4 fl (35.1-43.9); White Blood Count 9.6 K/mm3 (4.4-11.0)
[2023-04-29 12:39] LABS: Amphetamine Urine VISTA NEGATIVE (<1000 ng/mL); Barbiturate Urine VISTA NEGATIVE (< 200 ng/mL); Benzodiazepine Urine VISTA NEGATIVE (< 200 ng/mL); Cocaine Urine VISTA NEGATIVE (< 300 ng/mL); Ecstacy Urine VISTA NEGATIVE (< 500 ng/mL); Methadone Urine VISTA NEGATIVE (< 300 ng/mL); PCP Urine VISTA NEGATIVE (< 25 ng/mL); THC Urine VISTA POSITIVE (< 50 ng/mL); Vista UDS pH Range 5
[2023-04-29 12:51] LABS: CRP 4.43 mg/L (0.0-3.0); Free T3 2.4 pg/mL (2.18-3.98); T4 Free Direct 1.04 ng/dL (0.76-1.46); Thyroid Stim Hormone (TSH) 2.16 uIU/mL (0.358-3.74)
[2023-04-29 12:54] LABS: Erythrocyte Sedimentation Rate 28 mm/hr (0-30)
[2023-04-29 12:56] LABS: Vitamin B12 428 pg/mL (211-911)
[2023-04-30 11:08] LABS: Anti-Centromere B Ab <0.2 AI (0.0-0.9); Anti-Chromatin <0.2 AI (0.0-0.9); Anti-Jo <0.2 AI (0.0-0.9); Anti-Scleroderma-70 AB <0.2 AI (0.0-0.9); Anti-dsDNA Ab 1 IU/mL (0-9); RNP Ab <0.2 AI (0.0-0.9); SJOGREN'S Anti-SS-A test < 0.2 AI (0.0-0.9); SJOGREN'S Anti-SS-B test < 0.2 AI (0.0-0.9); Smith Ab <0.2 AI (0.0-0.9)
[2023-05-01 17:07] LABS: Alpha-1-Globulins 0.2 g/dL (0.0-0.4); Alpha-2-Globulins 0.8 g/dL (0.4-1.0); Cytoplasmic Ab (C-ANCA) <1:20 titer (Neg:<1:20); Endomysial Antibody IgA Negative (Negative); Gamma Globulin 1.1 g/dL (0.4-1.8); IgG, Quant 1042 mg/dL (586-1602); Immunoglobulin A 351 mg/dL (87-352); Immunoglobulin E 38 IU/mL (6-495); Immunoglobulin G, Subclass 1 547 mg/dL (248-810); Immunoglobulin G, Subclass 2 366 mg/dL (130-555); Immunoglobulin G, Subclass 3 163 mg/dL (15-102); Immunoglobulin G, Subclass 4 27 mg/dL (2-96); Immunoglobulin M 170 mg/dL (26-217); PROEL- TOTAL PROTEIN 7.2 g/dL (6.0-8.5); Perinuclear Ab (P-ANCA) <1:20 titer (Neg:<1:20); t-Transglutaminase IgA <2 U/mL (0-3)
== END | disposition home or self-care (01) ==
LOC: PAVLAB 11:50
PROVIDERS: PCP Internal Medicine; Referring Provider Internal Medicine Gastroenterology; Visit Provider Internal Medicine Gastroenterology
DX: R11.2 Nausea with vomiting, unspecified (principal); R68.89 Other general symptoms and signs; R19.7 Diarrhea, unspecified
CPT/HCPCS: 36415; 80307; 82607; 82784; 82785; 82787; 83516; 84165; 84439; 84443; 84481; 85025; 85652; 86140; 86225; 86235; 86255; 86256; 86334

== ENCOUNTER 2023-09-04 14:31 | Emergency (ER) | payer MEDICAID, SELFPAY ==
[2023-09-04 14:32] VITALS: BP 124/94; PULSE 64; RESP 18; TEMP 36.4; O2SAT 98; BMI 37.2
--- NOTE | 2023-09-04 14:48 | ED.VIS.GI ---
HPI HPI - GI History of Present Illness Chief Complaint: Constipation Informant: patient Narrative Narrative: Patient states she has a longstanding history of constipation since she was a child, but she usually is able to go every day. She has not had a bowel movement the last 3 days, she feels the need to pass stool but is unable to push it out and now is having anal pain. She has taken Ex-Lax last night and this morning and still has had no results. No other treatments attempted. She denies any fevers or chills. She has had some fleeting abdominal pains that are not there right now, she is not sure exactly where it was but probably lower she states. No nausea or vomiting. Not passing any blood or melena. Denies having prior abdominal surgeries, but records show she had a cholecystectomy. [facility] Medical History Subclinical hypothyroidism Hypothyroidism GERD (gastroesophageal reflux disease) Wears glasses Depression Marijuana use Diabetes History of ulceration Gastric reflux Smoker Shortness of breath on exertion History of echocardiogram History of pneumonia Chronic vomiting Gastric ulcer Type 2 diabetes mellitus Ulcer Diabetes Tobacco abuse Morbid obesity Hypertension Anxiety Home Medications ?Medication ?Instructions ?Recorded ?Last Taken ?Type lamotrigine 200 mg tablet 150 mg PO BID 12/05/20 Unknown History (Lamictal) haloperidol 5 mg tablet 5 mg PO PRN PRN Anxiety 04/09/22 Unknown History lansoprazole 30 mg capsule,delayed 30 mg PO DAILY #90 caps 10/03/22 Unknown Rx release (Prevacid) levothyroxine 25 mcg tablet See Rx Instructions .Route 10/24/22 Unknown Rx .COMPLEX #30 tabs metformin 500 mg tablet 500 mg PO BID #180 tabs 02/20/23 Unknown Rx lisinopril 10 mg tablet 10 mg PO DAILY #90 tabs 03/09/23 Unknown Rx atomoxetine 40 mg capsule 40 mg PO QAM 06/26/23 Unknown History hydrocortisone 1 %-pramoxine 1 % 1 applic NC QHS PRN hemorrhoids 09/04/23 Unknown Rx rectal foam (Proctofoam HC) #10 grams magnesium citrate 150 ml PO X1 #1 BOTTLE 09/04/23 Unknown Rx Allergy/AdvReac Type Severity Reaction Status Date / Time amoxicillin (Amoxicillin) Allergy Hives Verified 09/04/23 14:32 propranolol HCl (From Allergy Hives Verified 09/04/23 14:32 Inderal [place]) Family History Unknown Diabetes Multiple sclerosis cousin Mother Diabetes Hypertension Grandmother Diabetes Hypertension Aunt Multiple sclerosis Surgical History Hx of cholecystectomy Hx of colonoscopy History of cholecystectomy Social History Smoking Status: Current every day smoker tobacco type: cigarettes Tobacco: How many years used: 7 alcohol intake: never substance use type: former substance user Date of last use: 04/16/2020, marijuana and methamphetamine caffeine: Yes what type of physical activity do you participate in: walking seatbelt use: always do you feel safe at home: Yes additional social history: unemployed ROS ROS ED Constitutional Constitutional ED: Denies chills or fever(s) Eyes Eyes: Denies change in vision or diplopia ENT ENT ED: Denies rhinorrhea or sore throat Cardiovascular Cardiovascular: Denies chest pain or palpitations Respiratory/Chest Respiratory/Chest: Denies cough or dyspnea Gastrointestinal Gastrointestinal: Reports as per HPI, abdominal pain, constipation and other Details: anorectal pain ; Denies diarrhea, nausea or vomiting Genitourinary Genitourinary ED: Denies dysuria or hematuria Musculoskeletal Musculoskeletal: Denies back pain or neck pain Integumentary Denies abscess or rash Neurologic Neurologic: Denies headache(s), paresthesias or weakness Psychiatric Psychiatric: Denies anxiety or suicidal thoughts EXAM Physical Exam Const Vital Signs: 09/04/23 14:32 Temperature 97.6 F L Temperature Source Temporal Pulse Rate 64 Respiratory Rate 18 Blood Pressure 124/94 H Blood Pressure Mean 104 Pulse Ox 98 Oxygen Delivery Method Room Air Positive well nourished and well developed General Appearance ED: well developed and NAD HEENT Reports moist mucous membranes normocephalic and atraumatic Eyes PERRL and EOMs intact bilaterally Neck full ROM and supple Resp normal respiratory effort and clear to auscultation bilaterally Cardio regular rate, regular rhythm and no murmurs GI non-tender and non-distended GI Narrative: Rectal exam after obtaining verbal consent from patient with [place] guide: Normal on inspection no fissures or bleeding. No hard stool palpable on NED, there is tenderness at the 12:00 area posterior aspect of the anus without any palpable mass or abscess. Light brown stool no melena or blood. Auscultation: normoactive bowel sounds Palpation: soft Back/Spine General Back: other FROM Extremity normal to inspection General Extremety ED: Negative for edema General Extremity: Negative for edema Neuro oriented x3, CN's II-XII intact bilaterally and no sensory deficits noted Sensorium / Orientation: awake and alert Motor Exam: strength 5/5 throughout Skin no rashes or lesions noted and no wounds MDM MDM MDM Narrative Medical decision making narrative: On inspection patient's anorectal exam is normal on palpation she has tenderness but I do not feel a mass or abscess. My suspicion that this is probably an external hemorrhoid that is below the dentate line, but is not prolapsed or large/visible. Initially we then treated her with a soapsuds enema which she was amenable to. I do not think she needs other emergent testing right now, her vital signs are normal and her abdominal exam is very benign. After the enema she had a large bowel movement she is feeling much better. Wrote her for magnesium citrate and Proctofoam HC to use if she has continued symptoms of constipation and/or pain. Discharge Plan Triage Chief Complaint: Constipation ED Provider: Silvio Villafana Dx/Rx/DC Orders Clinical Impression: Constipation, Anal pain Instructions: ED Constipation (Adult), ED Hemorrhoids Prescriptions: New magnesium citrate Solution 150 ml PO X1 Qty: 1 0RF Rx Instructions: repeat after 24 hrs if no bowel movement Proctofoam HC 1-1 % foam 1 applic NC QHS PRN (Reason: hemorrhoids) Qty: 10 0RF No Action lamotrigine [Lamictal] 200 mg tablet 150 mg PO BID lansoprazole [Prevacid] 30 mg capsule,delayed release(DR/EC) 30 mg PO DAILY Qty: 90 0RF Rx Instructions: Take 30 minutes before breakfast atomoxetine 40 mg capsule 40 mg PO QAM haloperidol 5 mg tablet 5 mg PO PRN PRN (Reason: Anxiety) levothyroxine 25 mcg tablet See Rx Instructions .ROUTE .COMPLEX Qty: 30 2RF Dose Instruction: Take 1 tablet by mouth once daily Rx Instructions: Take 1 tablet by mouth once daily metformin 500 mg tablet 500 mg PO BID Qty: 180 1RF lisinopril 10 mg tablet 10 mg PO DAILY Qty: 90 0RF Primary Care Provider: Sergio Rodriges Referrals: Sergio Rodriges MD [Primary Care Provider] - 3-5 Days if not improving Activity Restrictions/Additional Instructions: When you choose to do the magnesium citrate, take half of the bottle and make sure you are drinking plenty of fluids and expect to have heavy watery bowel movements within 6-8 hours. If you do not within 24 hours, you may repeat with the other half of the bottle. Going forward you may want to consider taking MiraLAX 1 capful dissolved in 8 ounces of water every day to help prevent issues like this recurring. When you have bowel movements try not to strain, these create more likely situation for developing hemorrhoids. Print Language: Luxembourger Disposition Disposition: Home, Self Care
[2023-09-04 15:43] VITALS: BP 124/70; PULSE 65; RESP 18; TEMP 36.8; O2SAT 98
== END 2023-09-04 15:45 | disposition home or self-care (01) ==
PROVIDERS: Emergency Provider Emergency Medicine; PCP Internal Medicine; Visit Provider Emergency Medicine
DX: K59.00 Constipation, unspecified (principal); E11.9 Type 2 diabetes mellitus without complications; F17.210 Nicotine dependence, cigarettes, uncomplicated; K62.89 Other specified diseases of anus and rectum; I10 Essential (primary) hypertension; F41.9 Anxiety disorder, unspecified; K21.9 Gastro-esophageal reflux disease without esophagitis; E03.9 Hypothyroidism, unspecified; Z79.899 Other long term (current) drug therapy; Z90.49 Acquired absence of other specified parts of digestive tract
CPT/HCPCS: 99284

== ENCOUNTER → 2023-09-30 | Outpatient (CLI) | payer MEDICAID, SELFPAY ==
[2023-09-30 16:42] LABS: Absolute Lymphocyte Count 3.52 X10^3/uL (0.83-4.51); Absolute Neutrophil Count 4.5 X10^3/uL (2.0-7.7); Basophil# 0.05 X10^3/uL; Basophil% 0.6 % (0-1); Eosinophil# 0.31 X10^3/uL; Eosinophils% 3.5 % (0-5); Hematocrit 41.4 % (37-47); Hemoglobin 13.4 g/dL (12.0-15.0); Lymphocyte # 3.52 X10^3/ul (0.83-4.51); Lymphocyte % 39.2 % (19-41); Mean Corp Hgb Conc 32.4 g/dL (32-36); Mean Corpuscular Hgb 29.5 pg (27.0-32.0); Mean Platelet Vol. 10.8 fl (6.2-12.0); Monocyte# 0.54 X10^3/uL; NRBC Flagged by Analyzer 0 % (0-5); Neutrophil # 4.54 X10^3/uL (2.7-7.7); Neutrophil % 50.5 % (47-70); Platelet Count 294 K/mm3 (150-450); RBC Distribution Width CV 13.2 % (11.6-14.6); Red Blood Count 4.55 M/mm3 (4.2-5.4)
[2023-09-30 16:57] LABS: Hemoglobin A1c 5.4 % (3.8-5.6)
[2023-09-30 17:00] LABS: AST(SGOT) 16 U/L (15-37); Alanine Aminotransfer ALT/SGPT 21 U/L (13-56); Albumin, Serum 3.8 g/dL (3.2-5.0); Alkaline Phosphatase 64 U/L (45-117); Anion Gap 6 (5-15); BUN 7 mg/dL (7-18); BUN/Creat Ratio 7.8 RATIO (10-20); Calcium,Total 8.5 mg/dL (8.5-10.1); Chloride 107 mmol/L (98-107); Cholesterol 173 mg/dL (200); Creatinine, Serum 0.89 mg/dL (0.55-1.02); EST Glomerular Filtration Rate 80 mL/min (>60); Est Glom Filt Rate - Afr Amer 97 mL/min (>60); Globulin 3.9 g/dL (2.2-4.2); Glucose 97 mg/dL (74-106); High Density Lipoprotein 40 mg/dL; Potassium 3.8 mmol/L (3.5-5.1); Protein, Total 7.7 g/dL (6.4-8.2); Sodium Level 137 mmol/L (136-145); Thyroid Stim Hormone (TSH) 1.21 uIU/mL (0.358-3.74); Triglycerides 77 mg/dL; Very Low Density Lipoprotein 15 mg/dL (5-40)
== END | disposition home or self-care (01) ==
LOC: BIMLAB 15:37
PROVIDERS: PCP Internal Medicine; Visit Provider Internal Medicine
DX: I10 Essential (primary) hypertension (principal); E11.69 Type 2 diabetes mellitus with other specified complication; E03.9 Hypothyroidism, unspecified
CPT/HCPCS: 36415; 80053; 80061; 83036; 84443; 85025

== ENCOUNTER 2023-12-08 20:29 | Emergency (ER) | payer MEDICAID, SELFPAY ==
[2023-12-08 20:29] VITALS: BP 136/81; PULSE 72; RESP 18; TEMP 36.4; O2SAT 100; BMI 34.4
--- NOTE | 2023-12-08 20:30 | EKG12_ITS ---
Test Reason : CP Blood Pressure : / mmHG Vent. Rate : 067 BPM Atrial Rate : 067 BPM P-R Int : 166 ms QRS Dur : 070 ms QT Int : 370 ms P-R-T Axes : -12 041 043 degrees QTc Int : 390 ms Normal sinus rhythm Normal ECG Confirmed by Deny Meredith ([id number]), loan expeditor TANISHA GUTIÉRREZ ([id number]) on 12/09/2023 10:08:32 AM Referred By: TOMASA Confirmed By:Deny Meredith
--- NOTE | 2023-12-08 20:47 | RAD_ITS ---
STUDY: X-RAY CHEST REASON FOR EXAM: Female, 28 years old. chest pain TECHNIQUE: PA COMPARISON: September 22, 2015 FINDINGS: The lungs are clear and expanded. There is no demonstrated pleural abnormality. Normal size heart. Normal mediastinum and rena. Normal visualized pulmonary arteries. Normal visualized aortic arch and descending thoracic aorta. Normal visualized thoracic spine. Normal visualized ribs, clavicles, and shoulders. There is no demonstrated abnormality of the visualized soft tissue structures of the upper abdomen. RAD/Chest 1 View (Portable) IMPRESSION: Normal x-ray examination of the chest. Electronically Signed: Clayton Correa MD at 21:12 EDT ,
[2023-12-08 20:52] LABS: Absolute Lymphocyte Count 5.02 X10^3/uL (0.83-4.51); Basophil# 0.07 X10^3/uL; Basophil% 0.5 % (0-1); Eosinophil# 0.29 X10^3/uL; Eosinophils% 2.2 % (0-5); Hematocrit 40.3 % (37-47); Hemoglobin 13.4 g/dL (12.0-15.0); Lymphocyte # 5.02 X10^3/ul (0.83-4.51); Lymphocyte % 37.8 % (19-41); Mean Corp Hgb Conc 33.3 g/dL (32-36); Mean Corpuscular Hgb 29.6 pg (27.0-32.0); Mean Corpuscular Volume 89.2 fL (81-99); Mean Platelet Vol. 9.6 fl (6.2-12.0); Monocyte% 6.8 % (0-10); NRBC Flagged by Analyzer 0 % (0-5); Neutrophil # 6.95 X10^3/uL (2.7-7.7); Neutrophil % 52.3 % (47-70); POSITIVE DIFFERENTIAL YES; Platelet Count 354 K/mm3 (150-450); RBC Distribution Width CV 13.3 % (11.6-14.6); RBC Distribution Width SD 43.6 fl (35.1-43.9); Red Blood Count 4.52 M/mm3 (4.2-5.4); White Blood Count 13.3 K/mm3 (4.4-11.0)
[2023-12-08 21:02] LABS: Differential Indicated SCAN CRITERIA MET
[2023-12-08 21:11] LABS: Anion Gap 6 (5-15); BUN 10 mg/dL (7-18); BUN/Creat Ratio 10.9 RATIO (10-20); Calcium,Total 9.4 mg/dL (8.5-10.1); Chloride 105 mmol/L (98-107); Creatinine, Serum 0.92 mg/dL (0.55-1.02); EST Glomerular Filtration Rate 77 mL/min (>60); Est Glom Filt Rate - Afr Amer 94 mL/min (>60); Estimated Creatinine Clearance 96.69 ml/min; Glucose 91 mg/dL (74-106); Potassium 3.6 mmol/L (3.5-5.1); Sodium Level 139 mmol/L (136-145); Troponin-I HS (w/2H Reflex) 4 pg/mL (3.0-54.0)
[2023-12-08 21:38] LABS: Differential Comment SCANNED
--- NOTE | 2023-12-08 22:10 | EDS_ITS ---
HPI History of Present Illness Chief Complaint: Chest Pain Informant: patient Onset/Context/Timing Onset: Days Activity at onset: gradual Timing: Intermittent Quality: Positive for Pain and Sharp Location: - (Sternal) Current Severity: Mild Maximum Severity: Mild Worsened By: Nothing Relieved By: Nothing Associated Symptoms: Negative for Nausea, Vomiting, Diaphoresis, Dyspnea, Cough, Fever, Lightheadedness, Acid Reflux or Palpitations Narrative Narrative: 28-year-old female with intermittent sternal chest pain for 1 to 2 weeks. There is days she does not have a normal and other times she does have it. Denies any injury. Denies any shortness of breath. Denies any nausea or diaphoresis. This is not exertional. She has no cardiac history. No history of DVT or PE. No recent travel, surgery or immobilization. No calf pain or swelling. No hemoptysis. The pain is not pleuritic. She does have a history of anxiety and depression. Nothing particularly makes the pain better or worse. Prior Similar Symptoms: No Recent Illness/Hospitalization: No CVD Risk Factors: Positive for Diabetes; Negative for Hypertension PE Risk Factors: Negative for Recent Travel/Surgery, Recent Immobilization, Prior DVT or PE, Cancer or OCP + Smoking + >/=35 TAD Risk Factors: Negative for Marfan's Syndrome or Hypertension [facility] Medical History Chronic constipation Subclinical hypothyroidism Hypothyroidism GERD (gastroesophageal reflux disease) Wears glasses Depression Marijuana use Diabetes History of ulceration Gastric reflux Smoker Shortness of breath on exertion History of echocardiogram History of pneumonia Chronic vomiting Gastric ulcer Type 2 diabetes mellitus Ulcer Diabetes Tobacco abuse Morbid obesity Hypertension Anxiety Home Medications ?Medication ?Instructions ?Recorded ?Last Taken ?Type lamotrigine 200 mg tablet 150 mg PO BID 12/05/20 Unknown History (Lamictal) haloperidol 5 mg tablet 5 mg PO PRN PRN Anxiety 04/09/22 Unknown History lansoprazole 30 mg capsule,delayed 30 mg PO DAILY #90 caps 10/03/22 Unknown Rx release (Prevacid) levothyroxine 25 mcg tablet See Rx Instructions .Route 10/24/22 Unknown Rx .COMPLEX #30 tabs metformin 500 mg tablet 500 mg PO BID #180 tabs 02/20/23 Unknown Rx lisinopril 10 mg tablet 10 mg PO DAILY #90 tabs 03/09/23 Unknown Rx atomoxetine 40 mg capsule 40 mg PO QAM 06/26/23 Unknown History hydrocortisone 1 %-pramoxine 1 % 1 applic FL QHS PRN hemorrhoids 09/04/23 Unknown Rx rectal foam (Proctofoam HC) #10 grams polyethylene glycol 3350 17 17 g PO DAILY #119 grams 09/15/23 Unknown Rx gram/dose oral powder lactulose 10 gram/15 mL oral 10 g (15 mL) PO BID PRN 09/30/23 Unknown Rx solution constipation #3,000 mL Allergy/AdvReac Type Severity Reaction Status Date / Time amoxicillin (Amoxicillin) Allergy Hives Verified 12/08/23 20:29 propranolol HCl (From Allergy Hives Verified 12/08/23 20:29 Inderal [place]) Family History Unknown Diabetes Multiple sclerosis cousin Mother Diabetes Hypertension Grandmother Diabetes Hypertension Aunt Multiple sclerosis Surgical History Hx of cholecystectomy Hx of colonoscopy History of cholecystectomy Social History Smoking Status: Current every day smoker tobacco type: cigarettes Tobacco: How many years used: 7 alcohol intake: never substance use type: former substance user Date of last use: 04/16/2020, marijuana and methamphetamine caffeine: Yes what type of physical activity do you participate in: walking seatbelt use: always do you feel safe at home: Yes additional social history: unemployed ROS ROS ED ROS Narrative Chest pain. Denies recent illness. Constitutional Constitutional ED: Denies chills or fever(s) Eyes Eyes: Reports none ENT ENT ED: Denies ear pain Cardiovascular Cardiovascular: Reports chest pain; Denies palpitations or racing heartbeat Respiratory/Chest Respiratory/Chest: Denies cough, dyspnea or dyspnea on exertion Gastrointestinal Gastrointestinal: Denies abdominal pain, constipation, diarrhea, melena, nausea or vomiting Genitourinary Genitourinary ED: Denies dysuria or hematuria Musculoskeletal Musculoskeletal: Denies arthralgias Integumentary Denies abscess Neurologic Neurologic: Denies headache(s) Endocrine Endocrinology: Denies cold intolerance Hematologic/Lymphatic Hematologic/Lymphatic: Denies easy bleeding Allergic/Immunologic Allergic/Immunologic ED: Denies mouth swelling EXAM Physical Exam Narrative Exam Narrative: Well-appearing 28-year-old female. Vital signs are stable afebrile. Pulse ox 100% on room air no signs of hypoxia. H EENT exam unremarkable. Poor dentition. Neck nontender no JVD. Lungs clear to auscultation bilaterally. Heart regular rate and rhythm rate about 70 no murmur. She does have some mild reproducible sternal chest pain. There is no redness. No bruising. No crepitus. Ribs are nontender. Abdomen soft nontender. Moving all 4 extremities. Calves are nontender without edema or cords. Neurologically patient is awake and alert with no focal motor deficits. Awake and alert. Answering questions following commands. Const Vital Signs: 12/08/23 20:29 Temperature 97.6 F L Temperature Source Temporal Pulse Rate 72 Respiratory Rate 18 Blood Pressure 136/81 H Blood Pressure Mean 99 Pulse Ox 100 Oxygen Delivery Method Room Air Positive well nourished and well developed; Negative for cachectic, contractures or unkempt General Appearance ED: well developed and NAD; Negative for unkempt, cachectic, contractures or pallor Nutritional Appearance: Negative for cachectic HEENT Reports moist mucous membranes normocephalic and atraumatic; Negative for trauma or tenderness Eyes PERRL and EOMs intact bilaterally General Eye ED: Negative for pale conjunctiva or scleral icterus Neck no lymphadenopathy, supple and no JVD General: Negative for tenderness Chest Wall inspection of chest normal; Negative for palpation of chest normal Chest Narrative: Mild sternal tenderness. No discoloration. No bruising. No crepitus. Chest: tenderness Resp normal respiratory effort and clear to auscultation bilaterally Effort and Inspection: Negative for respiratory distress Auscultation: Negative for rales, rhonchi, wheezes or diminished lung sounds Cardio regular rate, regular rhythm, S1 normal heart sound, S2 normal heart sound and no murmurs Rate: Negative for bradycardia or tachycardic Rhythm: Negative for abnormal rhythm Peripheral Pulses: pulses 2+ throughout GI normal to inspection, nondistended, normoactive bowel sounds, soft to palpation, non-tender, non-distended and no masses Back/Spine no CVA tenderness and no thoracic nor lumbar tenderness General Back: Negative for CVA tenderness Cervical Spine: Negative for cervical spine tenderness Extremity normal to inspection General Extremety ED: Negative for edema, pulses abnormal or tenderness General Extremity: Negative for edema or pulses abnormal Neuro oriented x3, CN's II-XII intact bilaterally and no sensory deficits noted Sensorium / Orientation: awake, alert, oriented to person, oriented to place and oriented to time; Negative for confused, lethargic or stuporous Motor Exam: strength 5/5 throughout Psych mental status grossly normal Appearance: Negative for unkempt Attitude: No agitated Mood & Affect: Negative for depressed, anxious or tearful Skin no rashes or lesions noted and no wounds General Skin Exam: Negative for jaundice or pallor Rashes: No rashes noted Trauma: Negative for abrasion or laceration Heart Score History: Slightly/Non-Suspicious ECG: Normal Age: </= 45 years Risk Factors: No Risk Factors Troponin: </= Normal Limit Score: 0 MDM MDM MDM Narrative Medical decision making narrative: 28-year-old female with atypical nonexertional chest pain there is somewhat of a reproducible component. She has no DVT or PE history or risk factors. Her cardiac workup is negative. Including chest x-ray and labs. She has had this for a week. She has had a for more than 12 hours today. I do not think she needs a 2-hour troponin. To be discharged home. She was offered Motrin and said she would take some at home. Outpatient follow-up if she is not improving. History & Record Review Discussion w/independent historian: Patient Additional record(s) reviewed:: Prior inpatient record, Prior outpatient record, Prior ED visit and Prior labs Lab Data Attestation: I reviewed the patient's lab results. Lab results narrative: CBC white count 13.3. H&H 13 and 40. Platelets 354. Electrolytes show gap 6. Normal BUN and creatinine. Glucose 91. Troponin 4. Labs: Laboratory Results - last 24 hr 12/08/23 20:43 WBC 13.3 H RBC 4.52 Hgb 13.4 Hct 40.3 MCV 89.2 MCH 29.6 MCHC 33.3 RDW Std Deviation 43.6 RDW Coeff of Anila 13.3 Plt Count 354 MPV 9.6 Immature Gran % (Auto) 0.400 Neut % (Auto) 52.3 Lymph % (Auto) 37.8 [place] % (Auto) 6.8 Eos % (Auto) 2.2 Baso % (Auto) 0.5 Absolute Neuts (auto) 7.0 Absolute Lymphs (auto) 5.02 H Nucleated RBC % 0 Differential Comment SCANNED Sodium 139 Potassium 3.6 Chloride 105 Carbon Dioxide 28.0 Anion Gap 6 BUN 10 Creatinine 0.92 Estim Creat Clear Calc 96.69 Est GFR (MDRD) Af Amer 94 Est GFR (MDRD) Non-Af 77 BUN/Creatinine Ratio 10.9 Glucose 91 Calcium 9.4 Troponin I High Sens 4 Radiography Chest X-Ray - ED: 1 View, Read by ED Physician, Read by Radiologist, Heart, Lungs, Mediastinum, Bony Structures and No Acute Disease Diagnostic Testing: Clinical Impression(s) from Imaging Studies Chest X-Ray 12/08/23 20:47 IMPRESSION: Normal x-ray examination of the chest. Electronically Signed: Clayton Correa MD at 21:12 EDT , Cardiac silhouette. Normal lung campuzano. No pneumothorax. No infiltrate.Chest x-ray, portable, single view interpreted by myself and radiologist shows no acute abnormality. Rhythm Strip Rhythm Strip: Sinus Rhythm Rate: 67 Ectopy: None EKG Initial EKG: Attestation: I personally reviewed and interpreted this EKG as follows: Interpretation: Sinus Rhythm and No Acute Injury Pattern Management Discussion w/another healthcare provider: Hospitalist Discharge Plan Triage Chief Complaint: Chest Pain ED Provider: Elijah Todd Dx/Rx/DC Orders Clinical Impression: Chest pain Instructions: ED Chest Pain, Uncertain Cause Prescriptions: No Action lamotrigine [Lamictal] 200 mg tablet 150 mg PO BID lansoprazole [Prevacid] 30 mg capsule,delayed release(DR/EC) 30 mg PO DAILY Qty: 90 0RF Rx Instructions: Take 30 minutes before breakfast atomoxetine 40 mg capsule 40 mg PO QAM polyethylene glycol 3350 17 gram/dose powder 17 g PO DAILY Qty: 119 0RF Rx Instructions: Take one capful per day to achieve minimum of one soft BM daily lactulose 10 gram/15 mL solution 10 g PO BID PRN (Reason: constipation) Qty: 3000 1RF haloperidol 5 mg tablet 5 mg PO PRN PRN (Reason: Anxiety) Proctofoam HC 1-1 % foam 1 applic FL QHS PRN (Reason: hemorrhoids) Qty: 10 0RF levothyroxine 25 mcg tablet See Rx Instructions .ROUTE .COMPLEX Qty: 30 2RF Dose Instruction: Take 1 tablet by mouth once daily Rx Instructions: Take 1 tablet by mouth once daily metformin 500 mg tablet 500 mg PO BID Qty: 180 1RF lisinopril 10 mg tablet 10 mg PO DAILY Qty: 90 0RF Primary Care Provider: Sergio Rodriges Referrals: Sergio Rodriges MD [Primary Care Provider] - 1 Week if not improving Activity Restrictions/Additional Instructions: Motrin for pain and inflammation. You can alternate Tylenol. Your labs and chest x-ray look good as does your EKG. This may be musculoskeletal chest pain. Follow-up with your doctor if not improving or return if worse. Print Language: Serbian Disposition Disposition: Home, Self Care
[2023-12-08 22:27] VITALS: BP 126/78; PULSE 64; RESP 18; TEMP 36.4; O2SAT 99
[2023-12-08 22:50] LABS: Reflex Troponin-HS? (from REC) Y
== END 2023-12-08 22:28 | disposition home or self-care (01) ==
LOC: ED 22:17
PROVIDERS: Emergency Provider Emergency Medicine; PCP Internal Medicine; Visit Provider Emergency Medicine
DX: R07.9 Chest pain, unspecified (principal); E11.9 Type 2 diabetes mellitus without complications; I10 Essential (primary) hypertension; F17.210 Nicotine dependence, cigarettes, uncomplicated; F41.8 Other specified anxiety disorders; Z79.899 Other long term (current) drug therapy; E03.9 Hypothyroidism, unspecified; K21.9 Gastro-esophageal reflux disease without esophagitis; Z79.84 Long term (current) use of oral hypoglycemic drugs; Z79.890 Hormone replacement therapy; Z90.49 Acquired absence of other specified parts of digestive tract
CPT/HCPCS: 71045; 80048; 84484; 85025; 93005; 99284; A4216

== ENCOUNTER → 2024-02-22 | Outpatient (CLI) | payer MEDICAID, SELFPAY ==
[2024-02-22 16:31] LABS: Absolute Lymphocyte Count 4.21 X10^3/uL (0.83-4.51); Basophil# 0.06 X10^3/uL; Basophil% 0.6 % (0-1); Eosinophil# 0.26 X10^3/uL; Eosinophils% 2.5 % (0-5); Hematocrit 41.7 % (37-47); Hemoglobin 14.3 g/dL (12.0-15.0); Lymphocyte # 4.21 X10^3/ul (0.83-4.51); Mean Corp Hgb Conc 34.3 g/dL (32-36); Mean Corpuscular Hgb 30.2 pg (27.0-32.0); Monocyte# 0.72 X10^3/uL; NRBC Flagged by Analyzer 0 % (0-5); Neutrophil % 48.7 % (47-70); Platelet Count 413 K/mm3 (150-450); RBC Distribution Width CV 12.6 % (11.6-14.6); RBC Distribution Width SD 40.6 fl (35.1-43.9); Red Blood Count 4.74 M/mm3 (4.2-5.4); White Blood Count 10.3 K/mm3 (4.4-11.0)
[2024-02-22 16:53] LABS: ALB/GLOB Ratio 0.9 RATIO (0.9-2.4); AST(SGOT) 11 U/L (15-37); Alanine Aminotransfer ALT/SGPT 24 U/L (13-56); Albumin, Serum 3.8 g/dL (3.2-5.0); Alkaline Phosphatase 66 U/L (45-117); Anion Gap 9 (5-15); BUN 13 mg/dL (7-18); BUN/Creat Ratio 13.4 RATIO (10-20); Calcium,Total 9.8 mg/dL (8.5-10.1); Chloride 103 mmol/L (98-107); Creatinine, Serum 0.97 mg/dL (0.55-1.02); EST Glomerular Filtration Rate 72 mL/min (>60); Est Glom Filt Rate - Afr Amer 88 mL/min (>60); Globulin 4.3 g/dL (2.2-4.2); Glucose 95 mg/dL (74-106); Magnesium 1.9 mg/dL (1.6-2.6); Potassium 3.7 mmol/L (3.5-5.1); Protein, Total 8.1 g/dL (6.4-8.2); Sodium Level 136 mmol/L (136-145)
[2024-02-22 17:03] LABS: Vitamin D,25 Hydroxy 9.8 ng/mL
[2024-02-22 17:08] LABS: Hemoglobin A1c 5.5 % (3.8-5.6)
== END | disposition home or self-care (01) ==
LOC: BIMLAB 15:28
PROVIDERS: PCP Internal Medicine; Referring Provider Internal Medicine; Visit Provider Internal Medicine
DX: I10 Essential (primary) hypertension (principal); E11.69 Type 2 diabetes mellitus with other specified complication; Z13.21 Encounter for screening for nutritional disorder; E03.9 Hypothyroidism, unspecified
CPT/HCPCS: 36415; 80053; 82306; 83036; 83735; 85025

== ENCOUNTER → 2024-06-17 | Outpatient (CLI) | payer MEDICAID, SELFPAY ==
[2024-06-17 12:22] LABS: Hematocrit 42.2 % (37-47); Mean Corp Hgb Conc 33.2 g/dL (32-36); Mean Corpuscular Hgb 29.2 pg (27.0-32.0); Mean Corpuscular Volume 87.9 fL (81-99); Mean Platelet Vol. 10.1 fl (6.2-12.0); Platelet Count 417 K/mm3 (150-450); RBC Distribution Width CV 12.7 % (11.6-14.6); RBC Distribution Width SD 41.3 fl (35.1-43.9); White Blood Count 10.3 K/mm3 (4.4-11.0)
[2024-06-17 13:04] LABS: ALB/GLOB Ratio 1.3 RATIO (0.9-2.4); AST(SGOT) 20 U/L (<=31); Alanine Aminotransfer ALT/SGPT 14 U/L (<=34); Albumin, Serum 4.3 g/dL (3.5-5.0); Alkaline Phosphatase 73 U/L (35-104); Anion Gap 13 (5-15); BUN 9 mg/dL (4-19); BUN/Creat Ratio 12.3 RATIO (10-20); Calcium,Total 9.2 mg/dL (7.6-11.0); Carbon Dioxide 24.2 mmol/L (21.0-32.0); Chloride 102 mmol/L (98-108); Creatinine, Serum 0.76 mg/dL (0.70-1.20); EST Glomerular Filtration Rate 109 (>60); Globulin 3.2 g/dL (2.2-4.2); Glucose 101 mg/dL (70-99); Potassium 4.1 mmol/L (3.3-5.1); Protein, Total 7.5 g/dL (5.9-8.4); Sodium Level 139 mmol/L (133-145); Vitamin D,25 Hydroxy 67.1 ng/mL (30-100)
== END | disposition home or self-care (01) ==
LOC: BIMLAB 09:05
PROVIDERS: Physician Assistant; PCP Internal Medicine; Referring Provider Internal Medicine; Visit Provider Internal Medicine
DX: E11.69 Type 2 diabetes mellitus with other specified complication (principal); K04.7 Periapical abscess without sinus; E55.9 Vitamin D deficiency, unspecified
CPT/HCPCS: 36415; 80053; 82306; 83036; 85027

== ENCOUNTER → 2024-09-14 | Outpatient (CLI) | payer MEDICAID, SELFPAY ==
--- OUTSIDE RECORDS SUMMARY | 2024-09-14 20:56 | XMS RPT_ITS | CCD ---
Author Organization [facility] Care Team Providers Care Assessment Specialist Name Role Phone Dr. Skyler Rodriges Primary Care Provider 1(33 0) Dr. Skyler Rodriges Referring Provider 1(330)2 Taylor SANTA, RAIL TRANSPORTATION TABELER-C Shelley Attending Provider 1(330 ) Dr. Skyler Rodriges Attending Provider 1(330)2 DEJA Rush Attending Provider Unavailab Skyler Fischer MD Primary Care Provider 1(3 30) Dr. Skyler Rodriges Primary Care Provider 1(33 0) Dr. Skyler Rodriges Attending Provider 1(330)2 Dr. Skyler Rodriges Referring Provider 1(330)2 Care Physician, No Primary Referring Provider Un available Dr. Maria De Jesus Chan Attending Provider 1(3 30) Dr. Skyler Rodriges Primary Care Provider 1(33 0) Dr. Skyler Rodriges Attending Provider 1(330)2 Dr. Skyler Rodriges Referring Provider 1(330)2 Care Physician, No Primary Referring Provider Un available Dr. Maria De Jesus Chan Attending Provider 1(3 30) Keenan SANTA, RAIL TRANSPORTATION TABELER-C Maryann Iglesias Attending Provider 1(3 30) DR KRANTHI HARRIS MD Primary Care Physician KIMBERLY PALMER., DR. KRANTHI Robbins Primary Care Unavaila ble MAHENDRA FAJARDO Referring Unavailable MAHENDRA FAJARDO Admitting Unavailable GERMAN GAFFNEY DO Attending Unavailable Dr. Skyler Rodriges Primary Care Provider 1(33 0) Dr. Skyler Rodriges Attending Provider 1(330)2 Dr. Skyler Rodriges Referring Provider 1(330)2 Keenan RAIL TRANSPORTATION TABELER, RAIL TRANSPORTATION TABELER-C Maryann Iglesias Attending Provider 1(3 30) Gustavo RAIL TRANSPORTATION TABELER, RAIL TRANSPORTATION TABELER-C Colt Attending Provider 1(330) Skyler Rodriges MD Primary Care Provider 1(3 30) Zahira, Dr. Hill Primary Care Provider 1(33 0) Dr. Skyler Rodriges Attending Provider 1(330)2 Dr. Skyler Rodriges Referring Provider 1(330)2 Dr. Chaim Law Attending Provider 1(330) Skyler Rodriges MD Primary Care Provider 1(3 30) Skyler Rodriges MD Primary Care Provider 1(3 30) OLEGHE, EFEWONGBE B Primary Care Unavailable CASTILLO, HARRIETT Referring Unavailable OLEGHE, EFEWONGBE B Primary Care Unavailable OLEGHE, EFEWONGBE B Primary Care Unavailable CASTILLO, HARRIETT Referring Unavailable OLEGHE, EFEWONGBE B Primary Care Unavailable OLEGHE, EFEWONGBE B Primary Care Unavailable OLEGHE, EFEWONGBE B Primary Care Unavailable OLEGHE, EFEWONGBE B Primary Care Unavailable OLEGHE, EFEWONGBE B Primary Care Unavailable OLEGHE, EFEWONGBE B Primary Care Unavailable OLEGHE, EFEWONGBE B Primary Care Unavailable Dr. Skyler Rodriges MD Primary Care Provider Dr. Skyler Rodriges MD Attending Provider 1(33 0) Dr. Skyler Rodriges MD Referring Provider 1(33 0) Dr. Bruce Hurtado MD Attending Provider Jennifer Mcarthur Attending Provider 1(330) Fercho Mendoza Attending Provider Zahira PALMER, Dr. Hill Primary Care Provider Zahira PALMER, Dr. Hill Referring Provider [phone] Zahira PALMER, Dr. Hill Attending Provider [phone] Oleghe, Efewongbe Referring Unavailable Oleghe, Efewongbe Primary Care Unavailable Jennifer Darnell Attending Unavailable Bibiana Watson Attending Unavailable Oleghe, Efewongbe Referring Unavailable Oleghe, Efewongbe Primary Care Unavailable Oleghe, Efewongbe Referring Unavailable Oleghe, Efewongbe Primary Care Unavailable Jennifer Darnell Attending Unavailable Oleghe, Efewongbe Referring Unavailable Oleghe, Efewongbe Primary Care Unavailable Bruce Hurtado Attending Unavailable Oleghe, Efewongbe Attending Unavailable Oleghe, Efewongbe Referring Unavailable Oleghe, Efewongbe Primary Care Unavailable Oleghe, Efewongbe Attending Unavailable Oleghe, Efewongbe Referring Unavailable Oleghe, Efewongbe Primary Care Unavailable Oleghe, Efewongbe Attending Unavailable Oleghe, Efewongbe Referring Unavailable Oleghe, Efewongbe Primary Care Unavailable Oleghe, Efewongbe Referring Unavailable Oleghe, Efewongbe Attending Unavailable Oleghe, Efewongbe Primary Care Unavailable Jennifer Darnell Attending Unavailable Oleghe, Efewongbe Referring Unavailable Oleghe, Efewongbe Primary Care Unavailable Oleghe, Efewongbe Primary Care Unavailable Oleghe, Efewongbe Referring Unavailable Fercho Mendoza Attending Unavailable Alana Hodge Attending Unavailable Oleghe, Efewongbe Referring Unavailable Oleghe, Efewongbe Primary Care Unavailable Oleghe, Efewongbe Primary Care Unavailable Oleghe, Efewongbe Referring Unavailable Fercho Mendoza Attending Unavailable Oleghe, Efewongbe Referring Unavailable Oleghe, Efewongbe Primary Care Unavailable Fercho Mendoza Attending Unavailable Oleghe, Efewongbe Attending Unavailable Oleghe, Efewongbe Referring Unavailable Oleghe, Efewongbe Primary Care Unavailable Oleghe, Efewongbe Attending Unavailable Oleghe, Efewongbe Referring Unavailable Oleghe, Efewongbe Primary Care Unavailable Oleghe, Efewongbe Primary Care Unavailable Oleghe, Efewongbe Referring Unavailable Oleghe, Efewongbe Attending Unavailable Oleghe, Efewongbe Attending Unavailable Oleghe, Efewongbe Primary Care Unavailable Oleghe, Efewongbe Primary Care Unavailable Elijah Todd Attending Unavailable FriendChaim Attending Unavailable Oleghe, Efewongbe Primary Care Unavailable Allergies Allergy Classification Reported Allergen(s) Allergy Type Date of Onset Reaction(s) Facility Penicillins (antibiotic) (1 source) Amoxicillin Drug Allergy 01-17-2008 [facility] Work Phone: Propranolol (1 source) Propranolol Drug Allergy 03-13-2011 [facility] (20 sources) Amoxicillin; Translations: [amoxicillin] Drug Allergy 01-17-2008 [facility] Work Phone: (11 sources) Propranolol; Translations: [propranolol HCl] Drug Allergy 05-24-2021 [facility] (17 sources) Propranolol; Translations: [propranolol] Drug Allergy 03-13-2011 [place] Work Phone: (1 source) Amoxicillin Drug Allergy 08-19-2024 [facility] Repository Medications Current Medications Medication Drug Class(es) Dates Sig (Normalized) Sig (Original) [id number] 200 actuat albuterol 0.09 mg/actuat metered dose inhaler (15 sources) beta2-Adrenergic Agonist Start: 03-31-2024 take 2 puff(s) by inhalation every six hours as needed for wheezing albuterol HFA (PROVENTIL HFA, VENTOLIN HFA) 90 mcg/actuation inhaler Inhale 2 Puffs as instructed every 6 hours as needed for wheezing/shortnes s of breath. 8 g 03/31/2024 Active Start: 04-02-2022 End: 07-02-2022 Albuterol Sulfate 90 mcg/act uation HFA aerosol inhaler Discontinued 1 NMA INHALATION NEEDED as needed for SOB April 02, 2022 1:00am July 02, 2022 10:08am Start: 04-02-2022 End: 07-02-2022 Albuterol Sulfate Discontinu ed 1 PUFF INHALATION NEEDED April 02, 2022 12:00am July 02, 2022 9:08am Start: 04-02-2022 Albuterol Sulf ate Active G INHALATION April 02, 2022 12:00am Start: 08-17-2018 End: 09-07-2023 take 2 puff(s) by inhalation every four hours as needed for wheezing albuterol HFA (PROAIR HFA) 90 mcg/actuation inhaler Inhale 2 Puffs as instructed every 4 hours as needed for Wheezing/Shortness of Breath. 1 Inhaler 1 08/17/2018 09/07/2023 Discontinued Comment on above: Inhale 2 Puffs as in structed every 4 hours as needed for Wheezing/Shortness of Breath. albuterol MDI (90 mcg/inh) CFC free inhalation aerosol (1 source) Start : 03-31 take 1 puff(s) by inhalation every four hours as needed for wheezing albuterol MDI (90 mcg/inh) CFC free inhalation aerosol 1 puff(s), Inhalation, q4h, PRN as needed for wheezing, # 18 gram(s), 0 Refill(s), Pharmacy: [facility] #[id number], 160, cm, 03/28/22 20:31:00 EST, Height Start Date: 03/31/22 Status: Ordered atomoxetine 40 mg oral capsule (17 sources) Norepinephrine Reuptake Inhibitor Start : 06-25 End: 06-08 take 1 capsule by mouth once daily in the morning Atomoxetine 40 mg capsule Active 80 mg PO EVERY MORNING June 08, 2024 10:58am cholecalciferol 1.25 mg oral capsule (2 sources) Vitamin D Start : 02-21 take 1 capsule by mouth every week Cholecalciferol (Vitamin D3) 1,250 mcg (50,000 unit) capsule Active 1250 ug PO EVERY WEEK February 22, 2024 1:00am COMPOUNDED PRESCRIPTION (3 sources) Start : 08-30 End: 09-06 COMPOUNDED PRESCRIPTION Indications: Morbid obesity (HCC) Consult why weight program 1 Each 2 08/30/2018 09/07/2023 Discontinued Start: 08-30-2018 COMPOUNDED PRE SCRIPTION Indications: Morbid obesity (HCC) Consult why weight program 1 Each 2 08/30/2018 Active Comment on above: Consult why weight p rogram doxycycline monohydrate 100 mg oral tablet (2 sources) Tetracycline-clas s Drug Start: 04-09-2024 End: 04-14-2024 take 1 tablet by mouth twice daily doxycycline monohydrate 100 mg tablet Take 1 tablet by mouth two times a day for 5 days. 10 tablet 04/09/2024 04/14/2024 Active Start: 03-31-2024 End: 04-07-2024 take 1 tablet by mouth twice daily doxycycline (VIBRA-TABS) 100 mg tablet Take 1 tablet by mouth two times a day for 7 days. 14 tablet 03/31/2024 04/07/2024 Active fluconazole 150 mg oral tablet (1 source) Azole Antifungal Start: 04-03-2022 Fluconazole (Diflucan) 150 mg tablet Active 150 MG PO Q3D April 03, 2022 12:00am august repeat second dose 72 hrs after first dose if symptoms persist Inhalational Spacing Device (1 source) Start: 03-31-2024 End: 03-31-2024 Inhalational Spacing Device 1 Device one time only for 1 dose. 1 Each 03/31/2024 03/31/2024 Active inulin 2000 mg chewable tablet (2 sources) Start: 02-22-2024 take 2 tablets by mouth once daily Inulin (Fiber Gummies) 2 gram tablet,chewable Active g PO February 22, 2024 1:00am 2 gummies qd lamoTRIgine 150 mg oral tablet (20 sources) Mood Stabilizer, Anti-epileptic Agent Start: 06-08-2024 take 1 tablet by mouth twice daily Lamotrigine (Lamictal) 150 mg tablet Active 150 mg PO TWICE A DAY June 08, 2024 1:00am Start: 03-28-2022 lamoTRIgine 15 0 mg oral tablet Dose : 150 mg = 1 tab(s), Oral, BID, # 180 tab(s), 0 Refill(s) Start Date: 03/28/22 Status: Ordered Start: 12-05-2020 End: 06-08-2024 Lamotrigine (Lamictal) 200 m g tablet Discontinued 150 mg PO TWICE A DAY December 05, 2020 12:00am June 08, 2024 11:07am Start: 12-05-2020 lamoTRIgine (L AMICTAL) 200 mg tablet Take by mouth. 12/05/2020 Active Comment on above: Take by mouth. medroxyPROGESTERone acetate 10 mg oral tablet (8 sources) Progestin Start: take 10 mg by mouth once daily Medroxyprogesterone Active 10 MG PO DAILY February 27, 2022 12:00am Start: 02-07-2022 End: 09-07-2023 medroxyPROGESTERone (PROVERA ) 5 mg tablet Take by mouth. 0 02/07/2022 09/07/2023 Discontinued Start: 02-07-2022 Medroxyprogest erone (Provera) 5 mg tablet Active 5 MG PO DAILY February 06, 2022 11:00pm take 2 pills a day (at same time) for 1 week, then 1 pill a day for 3 weeks. take 7 days off, then start back at 1 pill a day for 4 weeks on, one week off. Comment on above: Take by mouth. metroNIDAZOLE 500 mg oral tablet (12 sources) Nitroimidazole Antimicrobial Start: 11-28-19 End: 12-05-19 take 1 tablet by mouth twice daily metroNIDAZOLE (FLAGYL) 500 mg tablet Take 1 tablet by mouth two times a day for 7 days. 14 tablet 11/28/2023 12/05/2023 Active Start: 09-29-2018 End: 11-29-2019 take 2 tablets by mouth every twelve hours Metronidazole 500 mg tablet Discontinued 500 mg PO .COMPLEX 4 September 29, 2018 12:00am November 29, 2019 9:27am 500 mg PO 2 tab now and repeat in 12 hours miconazole nitrate 40 mg/ml vaginal cream (2 sources) Azole Antifungal Start: 11-28-2023 End: 12-01-2023 Miconazole Nitrate (MONISTAT 3) 200 mg/5 gram (4 %) crea Use 1 Applicator vaginally once daily for 3 days. 25 g 11/28/2023 12/01/2023 Active mupirocin 0.02 mg/mg topical ointment (4 sources) RNA Synthetase Inhibitor Antibacterial Start: 04-09-2024 End: 04-16-2024 mupirocin (BACTROBAN) 2 % ointment Apply to affected area three times a day for 7 days. 15 g 04/09/2024 04/16/2024 Active Start: 01-19-2019 End: 09-07-2023 mupirocin (BACTROBAN) 2 % oi ntment Indications: Paronychia of finger of right hand Apply 1 application to affected area three times daily. 30 g 0 01/19/2019 09/07/2023 Discontinued Comment on above: Apply 1 application to affected area three times daily. omeprazole 20 mg delayed release oral tablet (19 sources) Proton Pump Inhibitor Start: 06-08-2024 take 1 tablet by mouth once daily as needed Omeprazole 20 mg tablet,delayed release (DR/EC) Active 20 mg PO daily as needed June 08, 2024 1:00am Start: 01-28-2020 End: 09-07-2023 take 1 capsule by mouth once daily 30 minutes before breakfast Omeprazole 40 mg capsule,delayed release(DR/EC) Discontinued 40 mg PO DAILY July 02, 2022 12:00am October 03, 2022 10:06am Take 30 minutes before breakfast Comment on above: Take [address] [facility] once daily. oseltamivir 75 mg oral capsule (2 sources) Neuraminidase Inhibitor Start: 04-02-2022 Oseltamivir Active MG PO April 02, 2022 12:00am Start: 03-31-2022 End: 04-01-2022 Tamiflu 75 mg oral capsule D ose : 75 mg = 1 cap(s), Oral, BID, # 5 cap(s), 0 Refill(s), 04/01/22 12:36:00 EST, [facility]: [facility] #[id number], 160, cm, 03/28/22 20:31:00 EST, Height Start Date: 03/31/22 Stop Date: 04/01/22 Status: Ordered Completed/Discontinued Medications Medication Drug Class(es) Dates Sig (Normalized) Sig (Original) benzonatate 100 mg oral capsule (4 sources) Non-narcotic Antitussive Start: 01-28-2024 End: 04-09-2024 take 1 capsule by mouth three times daily as needed for cough benzonatate (TESSALON PERLES) 100 mg capsule Indications: URI, acute , Acute cough Take 1 capsule by mouth three times a day as needed for cough. 21 capsule 01/28/2024 04/09/2024 Discontinued (Course of therapy completed) bisacodyl 10 mg rectal suppository (2 sources) Stimulant Laxative Start: 09-15-2023 End: 09-30-2023 Bisacodyl (Dulcolax (Bisacodyl)) 10 mg suppository Discontinued 10 mg RC DAILY as needed for constipation September 15, 2023 12:00am September 30, 2023 3:30pm Blood-Glucose Meter (Freestyle Lite Meter) kit (9 sources) Start: 08-19-2021 End: 08-19-2021 Blood-Glucose Meter (Freestyle Lite Meter) kit Discontinued 0 .MEDSUPPLY August 18, 2021 11:00pm August 19, 2021 11:08am As directed, check blood glucose daily for type 2 DM Start: 08-19-2021 End: 08-19-2021 Blood-Glucose Meter (Freesty le Lite Meter) kit Discontinued 0 .MEDSUPPLY August 19, 2021 12:00am August 19, 2021 12:08pm As directed, check blood glucose daily for type 2 DM Blood-Glucose Meter (Onetouc h Ultra2 Meter) misc (9 sources) Start: 08-19-2021 End: 08-27-2022 Blood-Glucose Meter (Onetouc h Ultra2 Meter) misc Discontinued 0 .ROUTE .MEDSUPPLY August 18, 2021 11:00pm August 27, 2022 2:10pm Check blood sugar daily Start: 08-19-2021 End: 08-27-2022 Blood-Glucose Meter (Onetouc h Ultra2 Meter) misc Discontinued 0 .ROUTE .MEDSUPPLY August 19, 2021 12:00am August 27, 2022 3:10pm Check blood sugar daily Start: 08-19-2021 Blood-Glucose Meter (Onetouch Ultra2 Meter) misc Active 0 .ROUTE .MEDSUPPLY August 18, 2021 11:00pm Check blood sugar daily Start: 08-19-2021 Blood-Glucose Meter (Onetouch Ultra2 Meter) misc Active 0 .ROUTE .MEDSUPPLY August 19, 2021 12:00am Check blood sugar daily busPIRone hydrochloride 10 mg oral tablet (13 sources) Start: 11-30-2018 End: 04-09-2024 take 1 tablet by mouth twice daily busPIRone (BUSPAR) 10 mg tablet Take 1 tablet by mouth twice daily. 0 11/30/2018 04/09/2024 Discontinued (Course of therapy completed) Comment on above: Take 1 tablet by michael th twice daily. cefdinir 300 mg oral capsule (8 sources) Cephalosporin Antibacterial Start: 04-09-2022 End: 07-02-2022 take 1 capsule by mouth twice daily Cefdinir 300 mg capsule Discontinued 300 mg PO TWICE A DAY April 09, 2022 1:00am July 02, 2022 10:09am Start: 03-31-2022 End: 04-07-2022 take 300 mg by mouth twice daily Cefdinir Active 300 M G PO TWICE A DAY April 02, 2022 12:00am citalopram 20 mg oral tablet (13 sources) Serotonin Reuptake Inhibitor Start: 01-17-2020 End: 09-07-2023 take 1 tablet by mouth once daily Citalopram 20 MG tablet Discontinued 20 mg PO DAILY March 01, 2020 1:00am December 05, 2020 10:37am Comment on above: Take 20 mg by mouth once daily. Clindamycin (13 sources) Lincosamide Antibacterial Start: 06-17-2024 End: 08-19-2024 clindamycin Discontinued PO June 17, 2024 1:00am August 19, 2024 9:50am Start: 06-17-2024 clindamycin Ac tive PO June 17, 2024 1:00am Start: 06-15-2024 End: 06-22-2024 take 3 capsules by mouth three times daily clindamycin (CLEOCIN) 150 mg capsule Take 3 capsules by mouth three times a day for 7 days. 63 capsule 06/15/2024 06/22/2024 Active Start: 02-21-2021 End: 05-24-2021 take 2 capsules by mouth four times daily Clindamycin Hcl 150 mg capsule Discontinued 300 mg PO 4 TIMES DAILY 80 February 21, 2021 1:00am May 24, 2021 11:07am Start: 02-21-2021 End: 05-24-2021 take 300 mg by mouth four times daily Clindamycin Hcl Discontinued 300 MG PO 4 TIMES DAILY 80 February 21, 2021 12:00am May 24, 2021 10:07am colestipol hydrochloride 1000 mg oral tablet (5 sources) Bile Acid Sequestrant Start: 07-11-2022 End: 10-03-2022 Colestipol 1 gram tablet Discontinued 1 g PO AT BEDTIME 90 July 11, 2022 12:00am October 03, 2022 10:05am wait at least one hour after other meds to take this Levonorgestrel-Ethin yl Estrad (20 sources) Progestin, Estrogen, Progestin-containin g Intrauterine Device Start: 10-18-2019 End: 11-29-2019 take 1 tablet by mouth once daily Levonorgestrel-Eth inyl Estrad (Aviane) 0.1-20 mg-mcg tablet Discontinued 1 {tbl} PO daily 84 October 18, 2019 9:40am November 29, 2019 9:34am Active pills only for continuous cycling up to 12 weeks Start: 10-18-2019 End: 11-29-2019 take 1 tablet by mouth once daily Levonorgestrel-Ethinyl Estrad (Aviane) 0.1-20 mg-mcg tablet Discontinued 1 TABLET PO daily October 18, 2019 8:40am November 29, 2019 8:34am Active pills only for continuous cycling up to 12 weeks Start: 10-18-2019 End: 11-29-2019 take 1 tablet by mouth once daily Levonorgestrel-Ethinyl Estrad (Aviane) 0.1-20 mg-mcg tablet Discontinued 1 TABLET PO daily October 18, 2019 9:40am November 29, 2019 9:34am Active pills only for continuous cycling up to 12 weeks Start: 12-23-2018 End: 04-09-2024 take 1 tablet by mouth once Levonorgestrel-Ethinyl Estrad 0.1mg - 20mcg per tablet Take 1 tablet by mouth as directed. 12/23/2018 04/09/2024 Discontinued (Course of therapy completed) Start: 12-23-2018 take 1 tablet by michael th once Levonorgestrel-Ethinyl Estrad 0.1mg - 20mcg per tablet Take 1 tablet by mouth as directed. 12/23/2018 Active Start: 12-23-2018 take 1 tablet by michael th once Levonorgestrel-Ethinyl Estrad 0.1mg - 20mcg per tablet Take 1 tablet by mouth as directed. 0 12/23/2018 Active Start: 09-29-2018 End: 10-18-2019 take 1 tablet by mouth once daily Levonorgestrel-Ethinyl Estrad (Aviane) 0.1-20 mg-mcg tablet Discontinued 1 {tbl} PO daily September 29, 2018 2:29pm October 18, 2019 9:41am Active pills only for continuous cycling up to 12 weeks Start: 09-29-2018 End: 10-18-2019 take 1 tablet by mouth once daily Levonorgestrel-Ethinyl Estrad (Aviane) 0.1-20 mg-mcg tablet Discontinued 1 TABLET PO daily September 29, 2018 1:29pm October 18, 2019 8:41am Active pills only for continuous cycling up to 12 weeks Start: 09-29-2018 End: 10-18-2019 take 1 tablet by mouth once daily Levonorgestrel-Ethinyl Estrad (Aviane) 0.1-20 mg-mcg tablet Discontinued 1 TABLET PO daily September 29, 2018 2:29pm October 18, 2019 9:41am Active pills only for continuous cycling up to 12 weeks Start: 09-13-2018 End: 09-29-2018 take 1 tablet by mouth once daily Levonorgestrel-Ethinyl Estrad (Aviane) 0.1-20 mg-mcg tablet Discontinued 1 TABLET PO daily September 13, 2018 2:40pm September 29, 2018 2:30pm Start: 09-13-2018 End: 09-29-2018 take 1 tablet by mouth once daily Levonorgestrel-Ethinyl Estrad (Aviane) 0.1-20 mg-mcg tablet Discontinued 1 {tbl} PO daily September 13, 2018 12:00am September 29, 2018 2:30pm Start: 09-13-2018 End: 09-29-2018 take 1 tablet by mouth once daily Levonorgestrel-Ethinyl Estrad (Aviane) 0.1-20 mg-mcg tablet Discontinued 1 TABLET PO daily September 12, 2018 11:00pm September 29, 2018 1:30pm Start: 09-13-2018 End: 09-29-2018 take 1 tablet by mouth once daily Levonorgestrel-Ethinyl Estrad (Aviane) 0.1-20 mg-mcg tablet Discontinued 1 TABLET PO daily September 13, 2018 12:00am September 29, 2018 2:30pm Comment on above: Take 1 tablet by michael th as directed. Norgestimate-Ethiny l Estradiol (20 sources) Progestin, Estrogen Start: 12-26-2021 End: 04-02-2022 take 1 tablet by mouth once daily Norgestimate-Ethinyl Estradiol (Sprintec (28)) 0.25-35 mg-mcg tablet Discontinued 1 {tbl} PO DAILY December 26, 2021 12:00am April 02, 2022 11:00am take active pills only Start: 12-26-2021 End: 04-02-2022 take 1 tablet by mouth once daily Norgestimate-Ethinyl Estradiol (Sprintec (28)) 0.25-35 mg-mcg tablet Discontinued 1 TABLET PO DAILY December 26, 2021 12:00am April 02, 2022 11:00am take active pills only Start: 12-26-2021 End: 04-02-2022 take 1 tablet by mouth once daily Norgestimate-Ethinyl Estradiol (Sprintec (28)) 0.25-35 mg-mcg tablet Discontinued 1 TABLET PO DAILY December 25, 2021 11:00pm April 02, 2022 10:00am take active pills only Start: 12-26-2021 take 1 tablet by michael once daily Norgestimate-Ethinyl Estradiol (Sprintec (28)) 0.25-35 mg-mcg tablet Active 1 TABLET PO DAILY December 25, 2021 11:00pm take active pills only Start: 12-26-2021 take 1 tablet by michael th once daily Norgestimate-Ethinyl Estradiol (Sprintec (28)) 0.25-35 mg-mcg tablet Active 1 TABLET PO DAILY December 26, 2021 12:00am take active pills only Start: 04-01-2017 End: 04-09-2017 Norgestimate-Ethinyl Estradi ol 1 TABLET tablet Discontinued 1 {tbl} PO DAILY April 01, 2017 12:54pm April 09, 2017 4:21pm Start: 04-01-2017 End: 04-09-2017 take 1 tablet by mouth once daily Norgestimate-Ethinyl Estradiol Discontinued 1 TABLET PO DAILY April 01, 2017 11:54am April 09, 2017 3:21pm Start: 04-01-2017 End: 04-09-2017 take 1 tablet by mouth once daily Norgestimate-Ethinyl Estradiol Discontinued 1 TABLET PO DAILY April 01, 2017 12:54pm April 09, 2017 4:21pm Start: 12-23-2016 End: 04-01-2017 take 1 tablet by mouth once daily Norgestimate-Ethinyl Estradiol Discontinued 1 TABLET PO DAILY December 23, 2016 3:26pm April 01, 2017 12:55pm Start: 12-23-2016 End: 04-01-2017 Norgestimate-Ethinyl Estradi ol 1 TABLET tablet Discontinued 1 {tbl} PO DAILY December 23, 2016 12:00am April 01, 2017 12:55pm Start: 12-23-2016 End: 04-01-2017 take 1 tablet by mouth once daily Norgestimate-Ethinyl Estradiol Discontinued 1 TABLET PO DAILY December 22, 2016 11:00pm April 01, 2017 11:55am Start: 12-23-2016 End: 04-01-2017 take 1 tablet by mouth once daily Norgestimate-Ethinyl Estradiol Discontinued 1 TABLET PO DAILY December 23, 2016 12:00am April 01, 2017 12:55pm famotidine 20 mg oral tablet (10 sources) Histamine-2 Receptor Antagonist Start: 01-14-2020 End: 12-05-2020 take 1 tablet by mouth twice daily Famotidine 20 MG tablet Discontinued 20 mg PO TWICE A DAY January 14, 2020 12:00am December 05, 2020 10:37am FLUoxetine 10 mg oral capsule (10 sources) Serotonin Reuptake Inhibitor Start: 07-12-2018 End: 11-29-2019 take 1 capsule by mouth once daily Fluoxetine (Prozac) 10 mg capsule Discontinued 10 mg PO DAILY July 12, 2018 12:00am November 29, 2019 9:27am haloperidol 5 mg oral tablet (7 sources) Typical Antipsychotic Start: 04-09-2022 End: 06-08-2024 Haloperidol 5 mg tablet Discontinued 5 mg PO NEEDED as needed for Anxiety April 09, 2022 1:00am June 08, 2024 10:59am Start: 03-29-2022 haloperidol 0. 5 mg oral tablet Dose : 0.5 mg = 1 tab(s), Oral, PRN Anxiety, 0 Refill(s) Start Date: 03/29/22 Status: Ordered hydrocortisone acetate 10 mg/ml / pramoxine hydrochloride 10 mg/ml rectal foam (2 sources) Corticosteroid Start: 09-04-2023 End: 06-08-2024 Hydrocortisone-Pramoxine (Proctofoam Hc) 1-1 % foam Discontinued 1 NMA RC AT BEDTIME as needed for hemorrhoids September 04, 2023 12:00am June 08, 2024 10:59am ketorolac tromethamine 10 mg oral tablet (10 sources) Nonsteroidal Anti-inflammator y Drug, Cyclooxygenase Inhibitor Start: 02-21-2021 End: 05-08-2021 take 1 tablet by mouth three times daily Ketorolac 10 mg tablet Discontinued 10 mg PO THREE TIMES A DAY 25 08February 21, 2021 1:00am May 08, 2021 4:38pm Lactulose (2 sources) Osmotic Laxative Start: 09-30-2023 End: 06-08-2024 take 10 g by mouth twice daily as needed for constipation Lactulose 10 gram/15 mL solution Discontinued 10 g PO TWICE A DAY as needed for constipation 2999September 30, 2023 12:00am June 08, 2024 10:59am lansoprazole 30 mg delayed release oral capsule (13 sources) Proton Pump Inhibitor Start: 10-03-2022 End: 06-08-2024 take 1 capsule by mouth once daily 30 minutes before breakfast Lansoprazole (Prevacid) 30 mg capsule,delayed release(DR/EC) Discontinued 30 mg PO DAILY October 03, 2022 12:00am June 08, 2024 11:00am Take 30 minutes before breakfast Start: 12-18-2021 End: 03-13-2022 take 1 capsule by mouth once daily Lansoprazole 30 mg capsule,delayed release(DR/EC) Discontinued 30 mg PO DAILY 60 December 18, 2021 12:00am March 13, 2022 11:18am levonorgestrel 0.635882 mg/hr intrauterine system (12 sources) Progestin, Progestin-containing Intrauterine Device Start: 07-26-2018 End: 09-13-2018 levonorgestrel 20 mcg/24 hours (6 yrs) 52 mg intrauterine device Discontinued 1 INSERT INTRA-UTER ONCE July 26, 2018 11:30am September 13, 2018 2:40pm Start: 07-26-2018 End: 09-13-2018 Levonorgestrel (Liletta) 19. 5 mcg/24 hrs (5 yrs) 52 mg intrauterine device Discontinued 1 NMA INTRA-UTER ONCE July 26, 2018 12:00am September 13, 2018 2:40pm Start: 07-26-2018 End: 09-13-2018 Levonorgestrel (Liletta) 19. 5 mcg/24 hrs (5 yrs) 52 mg intrauterine device Discontinued 1 DEVICE INTRA-UTER ONCE July 25, 2018 11:00pm September 13, 2018 1:40pm levothyroxine sodium 0.025 mg oral tablet (19 sources) l-Thyroxine Start: 08-27-2022 End: 04-09-2024 take 1 tablet by mouth once daily Levothyroxine 25 mcg tablet Discontinued 0 .ROUTE .COMPLEX October 24, 2022 8:48am February 22, 2024 3:57pm Take 1 tablet by mouth once daily lisinopril 10 mg oral tablet (20 sources) Angiotensin Converting Enzyme Inhibitor Start: 10-05-2016 End: 07-06-2024 take 1 tablet by mouth once daily Lisinopril 10 mg tablet Discontinued 10 mg PO DAILY March 09, 2023 6:00pm January 01, 2024 3:18pm Comment on above: Take 1 tablet by michael once daily. magnesium citrate 58.2 mg/ml oral solution (2 sources) Start: 09-04-2023 End: 09-15-2023 Magnesium Citrate solution Discontinued 150 mL PO ONE TIME September 04, 2023 12:00am September 15, 2023 10:27am repeat after 24 hrs if no bowel movement meloxicam 15 mg oral tablet (2 sources) Nonsteroidal Anti-inflammatory Drug Start: 06-17-2024 End: 08-19-2024 take 1 tablet by mouth once daily Meloxicam 15 mg tablet Discontinued 15 mg PO daily June 17, 2024 1:00am August 19, 2024 9:50am metFORMIN hydrochloride 500 mg oral tablet (20 sources) Biguanide Start: 02-22-2024 End: 06-08-2024 take 1 tablet by mouth once Metformin 500 mg tablet Discontinued 500 mg PO ONCE February 22, 2024 3:57pm June 08, 2024 11:00am Start: 08-19-2021 End: 02-22-2024 take 1 tablet by mouth twice daily Metformin 500 mg tablet Discontinued 500 mg PO TWICE A DAY 180 February 20, 2023 2:06pm February 22, 2024 3:57pm Comment on above: Take by mouth. 24 hr nicotine 0.875 mg/hr transdermal system (10 sources) Cholinergic Nicotinic Agonist Start: 02-14-20 End: 05-08-19 apply 1 dose transdermal route every twenty-four hours Nicotine 21 mg/24 hr patch 24 hour Discontinued 1 NMA TD Q24H February 13, 2021 12:00am May 08, 2021 4:38pm Start: 02-13-2021 End: 05-08-2021 apply 1 dose transdermal route every twenty-four hours Nicotine Discontinued 1 PATCH TD Q24H February 12, 2021 11:00pm May 08, 2021 3:38pm norethindrone acetate 5 mg oral tablet (20 sources) Start: 05-08-2021 End: 08-19-2021 take 1 tablet by mouth three times daily Norethindrone Acetate (Aygestin) 5 mg tablet Discontinued 5 mg PO .COMPLEX May 27, 2021 2:06pm August 19, 2021 8:35am 5 mg PO tid Start: 12-05-2020 End: 02-13-2021 take 1 tablet by mouth three times daily, then take 1 tablet by mouth twice daily Norethindrone Acetate (Aygestin) 5 mg tablet Discontinued 5 mg PO .COMPLEX December 05, 2020 12:00am February 13, 2021 3:11pm 5 mg PO tid until bleeding stops X 24 hr then bid to finish Rx pantoprazole 40 mg delayed release oral tablet (5 sources) Proton Pump Inhibitor Start: 04-10-2022 End: 07-02-2022 take 1 tablet by mouth twice daily Pantoprazole 40 mg tablet,delayed release (DR/EC) Discontinued 40 mg PO TWICE A DAY 60 April 10, 2022 1:00am July 02, 2022 10:23am polyethylene glycol 3350 78984 mg powder for oral solution (4 sources) Osmotic Laxative Start: 09-15-2023 End: 06-08-2024 Polyethylene Glycol 3350 17 gram/dose powder Discontinued 17 g PO DAILY 119 September 15, 2023 11:33am June 08, 2024 11:00am Take one capful per day to achieve minimum of one soft BM daily Start: 09-15-2023 End: 09-15-2023 Polyethylene Glycol 3350 17 gram/dose powder Discontinued 4 g PO DAILY 120 30 September 15, 2023 12:00am October 14, 2023 12:00am September 15, 2023 11:34am Take one capful per day to achieve minimum of one soft BM daily predniSONE 10 mg oral tablet (6 sources) Start: 01-28-2024 End: 04-09-2024 predniSONE (DELTASONE) 10 mg tablet Indications: URI, acute , Acute cough Take 4 tabs daily for 3 days, then 2 tabs daily for 3 days, then 1 tab daily for 3 days with food. 21 tablet 01/28/2024 04/09/2024 Discontinued (Course of therapy completed) Start: 03-28-2022 take 4 tablets by mo [facility] once daily at mealtime, then take 2 tablets by mouth once daily, then take 1 tablet by mouth once daily predniSONE 10 mg oral tablet TAKE 4 TABLETS BY MOUTH WITH FOOD ONCE DAILY FOR 3 DAYS, THEN TAKE 2 TABLETS ONCE DAILY FOR 3 DAYS, THEN TAKE 1 TABLET ONCE DAILY FOR 3 DAYS Start Date: 03/28/22 Status: Ordered risperiDONE 1 mg oral tablet (13 sources) Atypical Antipsychotic Start: 07-12-2018 End: 11-29-2019 take 1 tablet by mouth once daily Risperidone (Risperdal) 1 mg tablet Discontinued 1 mg PO DAILY July 12, 2018 12:00am November 29, 2019 9:27am Start: 06-28-2018 End: 09-07-2023 take 1 tablet by mouth twice daily risperiDONE (RISPERDAL) 2 mg tablet Indications: Bipolar 1 disorder (HCC) Take 1 tablet by mouth twice daily. 30 tablet 2 06/28/2018 09/07/2023 Discontinued Comment on above: Take 1 tablet by michael twice daily. traMADol hydrochloride 50 mg oral tablet (10 sources) Opioid Agonist Start: 1 End: 2 take 1 tablet by mouth every six hours as needed for pain Tramadol (Ultram) 50 mg tablet Discontinued 50 mg PO EVERY 6 HOURS as needed for pain February 22, 2021 1:00am May 08, 2021 4:38pm Problems Active Problems Problem Classification Problem Date Documented Da te Episodic/Chronic Abdominal pain (17 sources) Abdominal tenderness; Translations: [Abdominal tenderness, unspecified site] Episodic Anal and rectal conditions (2 sources) Anal pain; Translations: [Other specified diseases of anus and rectum] 09-12-2023 Episodic Anxiety disorders (20 sources) Anxiety; Translations: [Anxiety disorder, unspecified] Onset: 2 Chronic Blindness and vision defects (1 source) Visual impairment; Translations: [Unspecified visual loss] Chronic Diabetes mellitus with complications (1 source) Type 2 diabetes mellitus with other specified complication; Translations: [Type 2 diabetes mellitus with other specified complication] Onset: 5 Chronic Diabetes mellitus without complication (20 sources) Type 2 diabetes mellitus; Translations: [Type 2 diabetes mellitus without complications] Onset: 2 Chronic Disorders of lipid metabolism (16 sources) Dyslipidemia; Translations: [Hyperlipidemia, unspecified] Onset: 3 07-22-2012 Chronic Disorders of teeth and jaw (16 sources) Toothache; Translations: [Other specified disorders of teeth and supporting structures] Onset: 5 03-01-2021 Episodic Esophageal disorders (13 sources) Gastroesophageal reflux disease; Translations: [Gastro-esophageal reflux disease without esophagitis] 07-02-2022 Chronic Essential hypertension (20 sources) Hypertensive disorder; Translations: [Essential (primary) hypertension] Onset: 2 Chronic Gastritis and duodenitis (7 sources) Bile-induced gastritis; Translations: [Other gastritis without bleeding] 07-11-2022 Episodic Gastroduodenal ulcer (except hemorrhage) (14 sources) Gastric ulcer; Translations: [Gastric ulcer, unspecified as acute or chronic, without hemorrhage or perforation] Chronic Gastrointestinal hemorrhage (11 sources) Rectal hemorrhage; Translations: [Hemorrhage of anus and rectum] Episodic Genitourinary symptoms and ill-defined conditions (2 sources) Increased frequency of urination; Translations: [Frequency of micturition] 11-27-2023 Episodic Headache; including migraine (20 sources) Headache; Translations: [Headache, unspecified headache type] Onset: 1 Episodic Hepatitis (2 sources) Nonalcoholic steatohepatitis; Translations: [Nonalcoholic steatohepatitis (MUNOZ)] 02-22-2024 Chronic Influenza (2 sources) Influenza; Translations: [Influenza due to other identified influenza virus with other respiratory manifestations] Onset: 2 Episodic Menstrual disorders (20 sources) Menorrhagia; Translations: [Excessive and frequent menstruation with regular cycle] Chronic Comment on above: CBC, TSH, Prolactin, Rx Agestin. Ultrasound Mood disorders (13 sources) Bipolar disorder; Translations: [Bipolar disorder, unspecified] Chronic Nausea and vomiting (20 sources) Vomiting; Translations: [Vomiting, unspecified] Episodic Nutritional deficiencies (3 sources) Vitamin D deficiency; Translations: [Vitamin D deficiency, unspecified] Onset: 5 06-17-2024 Chronic Other and ill-defined heart disease (16 sources) Left ventricular hypertrophy; Translations: [Cardiomegaly] Onset: 3 07-22-2012 Chronic Other connective tissue disease (2 sources) Pain in right hand; Translations: [Pain in right hand] 01-25-2024 Episodic Other female genital disorders (9 sources) Abnormal uterine bleeding; Translations: [Abnormal uterine and vaginal bleeding, unspecified] 12-26-2021 Chronic Other female genital disorders (10 sources) Abnormal uterine and vaginal bleeding, unspecified; Translations: [Unspecified disorders of menstruation and other abnormal bleeding from female genital tract] Chronic Other female genital disorders (2 sources) Vaginal discharge; Translations: [Other specified noninflammatory disorders of vagina] 11-27-2023 Episodic Other gastrointestinal disorders (10 sources) Irritable bowel syndrome characterized by alternating bowel habit; Translations: [Mixed irritable bowel syndrome] 07-11-2022 Chronic Other gastrointestinal disorders (5 sources) Mixed irritable bowel syndrome; Translations: [Irritable bowel syndrome] Chronic Other gastrointestinal disorders (4 sources) Diarrhea; Translations: [Diarrhea, unspecified] 09-03-2022 Episodic Other gastrointestinal disorders (2 sources) Diarrhea, unspecified; Translations: [Diarrhea] 09-03-2022 Episodic Other gastrointestinal disorders (2 sources) Chronic constipation; Translations: [Other constipation] 09-30-2023 Episodic Other gastrointestinal disorders (4 sources) Constipation; Translations: [Constipation, unspecified] 09-15-2023 Episodic Other hereditary and degenerative nervous system conditions (5 sources) Akathisia; Translations: [Drug induced akathisia] 08-15-2022 Chronic Other lower respiratory disease (7 sources) H/O: pneumonia; Translations: [Personal history of pneumonia (recurrent)] 04-09-2022 Episodic Comment on above: DX W/ PNEUMONIA 03/13 10/02 AT [facility]. PT WAS HOSPITALIZED Other lower respiratory disease (2 sources) Personal history of pneumonia (recurrent); Translations: [Personal history of pneumonia (recurrent)] Episodic Other lower respiratory disease (1 source) Cough; Translations: [Acute cough] 03-17-2023 Episodic Other lower respiratory disease (2 sources) Cough; Translations: [Acute cough] 01-28-2024 Episodic Other lower respiratory disease (1 source) Lower respiratory tract infection; Translations: [Unspecified acute lower respiratory infection] 03-31-2024 Episodic Other non-traumatic joint disorders (2 sources) Pain of right wrist; Translations: [Pain in right wrist] 01-25-2024 Episodic Other nutritional; endocrine; and metabolic disorders (10 sources) Morbid obesity; Translations: [Morbid (severe) obesity due to excess calories] 02-13-2021 Chronic Other nutritional; endocrine; and metabolic disorders (4 sources) Morbid (severe) obesity due to excess calories; Translations: [Morbid obesity] Onset: 5 Chronic Other nutritional; endocrine; and metabolic disorders (16 sources) Body mass index 30+ - obesity; Translations: [Obesity, unspecified] Onset: 1 12-23-2012 Chronic Other nutritional; endocrine; and metabolic disorders (16 sources) Metabolic syndrome X; Translations: [Metabolic syndrome] Onset: 3 07-22-2012 Chronic Other nutritional; endocrine; and metabolic disorders (9 sources) H/O: diabetes mellitus; Translations: [Personal history of other endocrine, nutritional and metabolic disease] 10-09-2021 Episodic Pneumonia (except that caused by tuberculosis or sexually transmitted disease) (1 source) Pneumonia; Translations: [Pneumonia, unspecified organism] Onset: 2 Episodic Residual codes; unclassified (10 sources) Confusional state; Translations: [Disorientation, unspecified] 04-16-2020 Episodic Residual codes; unclassified (11 sources) Tobacco user; Translations: [Tobacco use] Onset: 2 Episodic Residual codes; unclassified (1 source) Tobacco use; Translations: [Tobacco use disorder] Episodic Residual codes; unclassified (8 sources) Early satiety; Translations: [Early satiety] 03-13-2022 Episodic Residual codes; unclassified (3 sources) Early satiety; Translations: [Early satiety] Episodic Residual codes; unclassified (6 sources) Forgetful; Translations: [Other general symptoms and signs] 04-27-2023 Episodic Comment on above: Possible recent exac erbation of memory defect. Patient is using marijuana which may contribute to forgetfulness. Patient also may have a sleep disturbance which could be affecting overall performance. Residual codes; unclassified (2 sources) Disturbance in sleep behavior; Translations: [Sleep disorder, unspecified] 06-08-2024 Episodic Screening and history of mental health and substance abuse codes (9 sources) H/O: manic depressive disorder; Translations: [Personal history of other mental and behavioral disorders] 10-09-2021 Episodic Skin and subcutaneous tissue infections (1 source) Infection of skin; Translations: [Local infection of the skin and subcutaneous tissue, unspecified] 04-09-2024 Episodic Sprains and strains (10 sources) Sprain of ankle; Translations: [Sprain of unspecified ligament of right ankle, initial encounter] 12-24-2016 Episodic Substance-related disorders (20 sources) H/O: Disorder; Translations: [Other psychoactive substance dependence, in remission] Chronic Comment on above: sober 1 year as of Substance-related disorders (1 source) Substance misuse behavior 01-17-2020 Episodic Thyroid disorders (11 sources) Subclinical hypothyroidism; Translations: [Other specified hypothyroidism] Onset: 4 10-03-2022 Chronic Unclassified (1 source) Acute cough; Translations: [Acute cough] Onset: 4 Unclassified (2 sources) Forgetfulness; Translations: [R68.89 - Other general symptoms and signs] Viral infection (1 source) Viral disease; Translations: [Viral infection, unspecified] 09-07-2023 Episodic Past or Other Problems Problem Classification Problem Date Documented Da te Episodic/Chronic Diabetes mellitus without complication (16 sources) Prediabetes; Translations: [Prediabetes] Onset: 06-28-2018 06-28-2018 Episodic Malaise and fatigue (1 source) Other fatigue; Translations: [Other fatigue] Onset: 06-08-2024 Episodic Nonspecific chest pain (8 sources) Atypical chest pain; Translations: [Other chest pain] Onset: 12-30-2023 01-01-2024 Episodic Other connective tissue disease (1 source) Pain in right hand; Translations: [Hand pain, right] Onset: 01-25-2024 Episodic Other gastrointestinal disorders (2 sources) Other constipation; Translations: [Other constipation] Onset: 09-30-2023 Episodic Other non-traumatic joint disorders (1 source) Pain in right wrist; Translations: [Wrist pain, right] Onset: 01-25-2024 Episodic Other screening for suspected conditions (not mental disorders or infectious disease) (8 sources) Raised TSH level; Translations: [Other specified abnormal findings of blood chemistry] Onset: 02-22-2024 08-15-2022 Episodic Other upper respiratory infections (3 sources) Acute upper respiratory infection; Translations: [Acute upper respiratory infection, unspecified] Onset: 01-28-2024 01-28-2024 Episodic Residual codes; unclassified (16 sources) FH: Hypertension; Translations: [Family history of ischemic heart disease and other diseases of the circulatory system] Onset: 07-23-2011 07-23-2011 Episodic Residual codes; unclassified (2 sources) Other general symptoms and signs; Translations: [Other general symptoms] Onset: 04-29-2024 04-27-2023 Episodic Residual codes; unclassified (1 source) Sleep disorder, unspecified; Translations: [Sleep disorder, unspecified] Onset: 06-08-2024 Episodic Unclassified (14 sources) Elevated blood pressure; Translations: [Elevated blood pressure] Onset: 01-07-2011 Resolved: 08-21-2011 08-21-2011 Results Test Name Value Interpretation Reference Range Facility Gastroenterology Visit Repor ton 08-31-2024 Gastroenterology Visit Report [facility] Gastroenterology [address] [place] [address] OFFICE VISIT Date of Service: 08/31/24 MR#: [id number] Acct: [id number] Name: GENET COBB Rep #: [id number] : 1995 Provider: DEJA Saldana Age/Sex: 29/F Location: [facility] Status: Signed Intake Vital Signs 06/08/24 09:54 08/19/24 09:51 Height 5 ft 3 in 5 ft 3 in Intake Visit Reasons: Test Result Chief Complaint: constipation Allergies amoxicillin (Amoxicillin) Allergy (Verified 08/19/24 09:49) Hives propranolol HCl (From Inderal LA) Allergy (Verified 08/19/24 09:49) Hives Patient : No Nurse's Note: OV 08/31/24 Pt here for f/u and reports she is feeling a little better since last appt. Pt reports she is still having constipation, diarrhea, LUQ abdominal pain. Pt continues omeprazole and finds it to be helpful. [facility] Medical History (Updated 08/20/24 @ 09:20 by Fercho SHORT, PA) MUNOZ (nonalcoholic steatohepatitis) Encounter for vitamin deficiency screening Atypical chest pain Chronic constipation Subclinical hypothyroidism Hypothyroidism GERD (gastroesophageal reflux disease) Wears glasses Depression Marijuana use Diabetes History of ulceration Gastric reflux Smoker Shortness of breath on exertion History of echocardiogram History of pneumonia Chronic vomiting Gastric ulcer Type 2 diabetes mellitus Ulcer Diabetes Tobacco abuse Morbid obesity Hypertension Anxiety Surgical History Hx of cholecystectomy Hx of colonoscopy History of cholecystectomy Family History Unknown Diabetes Multiple sclerosis cousin Mother Diabetes Hypertension Grandmother Diabetes Hypertension Aunt Multiple sclerosis Social History household members: other details: mom current occupational status: disabled Smoking Status: Former smoker Tobacco: How many years used: 7 alcohol intake: never substance use type: former substance user Date of last use: 04/16/2020, marijuana and methamphetamine caffeine: Yes Type: carbonated beverages Number of servings: 4 and tea what type of physical activity do you participate in: walking seatbelt use: always do you feel safe at home: Yes additional social history: unemployed HPI HPI Chief Complaint: constipation Details: GENET COBB, is a 29 F who presents to the office today for f/u. BGI established in 2021 for cyclic vomiting x2 years. Happening every couple months and lasts for 1- 2 weeks. Hx of intermittent marijuana use. Previous use of meth. Pt has been on PPI and colestipol for treatment of her condition. GET ordered, not performed Biochemical CBC (EOS H7.6), CMP, amylase, lipase, VICTOR M comp, ANCA, celiac, IBD without pertinent abnormality. ESR H39, CRP H10.3 CT abd/pel 04.01.22 hepatic steatosis; subcentimeter mesenteric lymph nodes. EGD 04.10.22 non-severe esophagitis; medium hiatal hernia; gastritis; pyloric inflammation; duodenitis. No path changes. Last OV 06.10.24 Pt having right sided chest discomfort that she feels is related to her GERD. Recommend f/u with PCP to rule out cardiac etiology. Scheduled for EGD. Recommended fiber supplement and miralax for alternating bowels. OV 08.31.24 Pt canceled EGD as she was dealing with her teeth. She is continues to have epigastric pain. She takes omeprazole as needed but not daily. She was previously taking a fiber gummy but since she has lost some teeth its hard for her to eat a gummy. ROS Const Constitutional: No fatigue, fever(s) or weight change ENT ENT: No difficulty swallowing Gastro GI: Positive for abdominal pain and diarrhea; No belching, bloating, change in bowel habits, change in stool character, coffee ground emesis, constipation, cramping, heartburn, difficulty swallowing, feeling full early, excessive flatus, incontinent of stools, Vomiting blood/hematemesis, Blood in stool, loose stools, Black,tarry stools, nausea/dyspepsia, pain with swallowing, vomiting or other Musc Musculoskeletal: No joint pain Skin Skin: No yellowing of the eye or itchy eyes Psych Psychiatric: Positive for anxiety and Positive for depression Endo Endocrine: No fatigue or weight change Aller/Imm Allergy/Immunologic: No itchy eyes Yousif/Lymp Hematologic/Lymphatic: No easy bleeding or easy bruising Exam Const General: cooperative, healthy appearing and comfortable Nutritional Appearance: average body habitus [facility] Head: normal to inspection Teeth and gingiva: poor dentition Eyes General: appearance normal, both eyes and all related structures Neck Neck: normal visual inspection Chest Chest palpation inspection: normal inspection of the chest (more content not included)... Normal [facility] Internal Medicine Office Vis iton 08-19-2024 Internal Medicine Office Visit [facility] [address] [place], [place] [id number] OFFICE VISIT Date of Service: 08/19/24 MR#: [id number] Acct: [id number] Name: GENET COBB Rep #: [id number] : 1995 Provider: DEJA Lang Age/Sex: 29/F Location: [facility] Status: Signed Intake Vital Signs 06/17/24 08:05 08/19/24 09:51 Height 5 ft 3 in 5 ft 3 in Weight: 219 lb 219 lb BMI 38.7 38.7 BP 138/98 H 112/90 H Blood Pressure Location Lt brachial Lt brachial Position Sitting Sitting Respiration 18 16 Pulse 83 80 Pulse Source Monitor Monitor Temp 98.6 F 98.0 F Temp Source Temporal Temporal Pulse Oximetry (%) 97 97 Oxygen Delivery Method room air room air Intake Visit Reasons: MED FU Chief Complaint: MED FU Is patient in pain?: No Allergies amoxicillin (Amoxicillin) Allergy (Verified 08/19/24 09:49) Hives propranolol HCl (From Inderal LA) Allergy (Verified 08/19/24 09:49) Hives Medications ???Medication ???Instructions ???Recorded ???Confirmed ???Type cholecalciferol (vitamin D3) 1,250 1,250 mcg PO QWEEK #20 caps 02/1108/19/24 Rx mcg (50,000 unit) capsule inulin 2 gram chewable tablet g PO 02/22/24 08/19/24 History (Fiber Gummies) atomoxetine 40 mg capsule 80 mg PO QAM 06/08/24 08/19/24 His tory lamotrigine 150 mg tablet 150 mg PO BID 06/08/24 08/19/24 Hi story (Lamictal) omeprazole 20 mg tablet,delayed 20 mg PO QDAY PRN 06/08/24 5 History release lisinopril 10 mg tablet 10 mg PO DAILY #30 tabs 07/06/24 0 08/19/24 Rx PFSH Medical History (Updated 08/20/24 @ 09:20 by DEJA Moncada) MUNOZ (nonalcoholic steatohepatitis) Encounter for vitamin deficiency screening Atypical chest pain Chronic constipation Subclinical hypothyroidism Hypothyroidism GERD (gastroesophageal reflux disease) Wears glasses Depression Marijuana use Diabetes History of ulceration Gastric reflux Smoker Shortness of breath on exertion History of echocardiogram History of pneumonia Chronic vomiting Gastric ulcer Type 2 diabetes mellitus Ulcer Diabetes Tobacco abuse Morbid obesity Hypertension Anxiety Surgical History Hx of cholecystectomy Hx of colonoscopy History of cholecystectomy Family History Unknown Diabetes Multiple sclerosis cousin Mother Diabetes Hypertension Grandmother Diabetes Hypertension Aunt Multiple sclerosis Social History household members: other details: mom current occupational status: disabled Smoking Status: Former smoker Tobacco: How many years used: 7 alcohol intake: never substance use type: former substance user Date of last use: 04/16/2020, marijuana and methamphetamine caffeine: Yes Type: carbonated beverages Number of servings: 4 and tea what type of physical activity do you participate in: walking seatbelt use: always do you feel safe at home: Yes additional social history: unemployed HPI HPI Chief Complaint: MED FU Details: GENET COBB, is a 29 F who presents to the office today for A FOLLOW-UP at the same time patient states that she really doesn't know for what. She thought maybe it was for her diabetes but again she is not sure why she was to f/u but she came anyhow. She states that she is not having any concerns at this time medically. She states that she has been trying to move more and be more active. She is walking more and trying to stretch and just move more. She states that she started that primarily for her mental health but obviously she is feeling better physically as well She states that is currently trying to figure out her dental issues. She has poor dentition and requires a lot of work which would include extraction and likely dentures. She does not use cigarettes or vape but she does use marijuana pretty regularly No ETOH use She does consume a moderate amt of pop per day although she has cut back trying to drink more water. ROS Const Constitutional: No body ache, chills, excessive sweating, fatigue, fever(s), frequent falls, headache(s), snoring, weakness, sleep problems or change in appetite Eyes Eyes: No blurry vision, change in vision or Light sensitivity ENT ENT: No abnormal hearing, ear or mastoid pain, tinnitus, nasal congestion, nasal discharge, headache(s), neck pain or sore throat Resp Respiratory: No cough, shortness of breath, snoring or wheezing Cardio Cardiology: No chest pain at rest, chest pain with exertion, excessive sweating, shortness of breath, dyspnea on exertion, lightheadedness, orthopnea or palpitations Gastro GI: No abdominal pain, change in bowel habits, constipation, cramping, diarrhea or nausea/dyspepsia (more content not included)... Normal [facility] BACTERIAL VAGINOSIS NAATon 0 07-05-2024 Lactobacillus crispatus+gasseri+jense wendy + Gardnerella vaginalis + Atopobium vaginae rRNA LAWSON+probe Ql (Vag fld) Not detected Normal Not detected [facility] Comment on above: Order Comment: Speci men Type: SWABOrdering Facility: [facility] Address: [address] [place] [address] Performed By: #### 3 6902-5, BVAMP ####[facility] LABCLIA [id number] [place] [address] [place] Bacteria Ur Culton Bacteria identified Cx Nom (U) ORGANISM ID: 1 10,000 -<50,000 CFU/ml Normal urogenital fausto Normal [facility] Comment on above: Performed By: #### 6 30-4 ####[facility] LABCLIA [id number] [place] [address] [place] C. trachomatis+N. gonorrhoea e DNA LAWSON+probe Ql (Unsp spec)on 07-05-2024 C. trachomatis rRNA LAWSON+probe Ql (Unsp spec) Not detected Normal Not detected [facility] Comment on above: Order Comment: Speci men Type: SWABOrdering Facility: [facility] Address: [address] [place] [address] Performed By: #### 3 6902-5, BVAMP ####[facility] LABCLIA [id number] [place] [address] [place] N. gonorrhoeae rRNA LAWSON+probe Ql (Unsp spec) Not detected Normal Not detected [facility] Comment on above: Order Comment: Speci men Type: SWABOrdering Facility: [facility] Address: [address] [place] [address] Performed By: #### 3 6902-5, BVAMP ####[facility] LABCLIA [id number] [place] [address] [place] DONIS/TRICHOMONAS NAATon 0 07-05-2024 C. glabrata RNA LAWSON+probe Ql (Vag fld) Not detected Normal Not detected [facility] Comment on above: Order Comment: Speci men Type: SWABOrdering Facility: [facility] Address: [address] [place] [address] Performed By: #### C VTV ####[facility] LABCLIA [id number] [address] [place] Donis sp DNA LAWSON+probe Ql (Vag fld) Not detected Normal Not detected [facility] Comment on above: Order Comment: Speci men Type: SWABOrdering Facility: [facility] Address: [address] [place] [address] Result Comment: The Donis species group target includes C. albicans, C. tropicalis, C. parapsilosis, and C. dubliniensis. Performed By: #### C VTV ####[facility] LABCLIA [id number] [address] [place] T. vaginalis DNA LAWSON+probe Ql (Unsp spec) Not detected Normal Not detected [facility] Comment on above: Order Comment: Speci men Type: SWABOrdering Facility: 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 Patient presents with: Vaginal Problem: discharge x 1 day, urinary frequency and burning x 5 days Vaginal Problem Pertinent negatives include no chills or fever. Genet Cobb is a 29 year old female who presents with 5 days of frequency and burning with urination. This morning she noticed a white milky vaginal discharge. She is currently sexually active. LMP was one month ago. She is not on control. She denies pain with intercourse, vaginal spotting, or hematuria. Denies fever or back pain. Review of Systems Constitutional: Negative for chills and fever. Respiratory: Negative. Cardiovascular: Negative. Gastrointestinal: Negative. Genitourinary: Positive for dysuria, frequency and vaginal discharge. Negative for hematuria. Musculoskeletal: Negative for back pain. Objective BP 122/80 Pulse 100 Temp 37.2 ?C (98.9 ?F) Resp 18 Wt 98.2 kg (216 lb 7.9 oz) LMP 03/11/2024 (Within Days) SpO2 97% BMI 37.16 kg/m? PAST MEDICAL HISTORY Diagnosis Date - Anxiety - Elevated blood pressure 01/07/2011 - Excessive anger - Headache(784.0) 03/13/2011 - History of drug use meth and marajuana - IBS (irritable bowel syndrome) - Left ventricular hypertrophy - Overweight(278.02) 01/07/2011 PAST SURGICAL HISTORY Procedure Laterality Date - COLONOSCOPY FLX DX W/COLLJ SPEC WHEN PFRMD 07/04/2015 Colonoscopy - LAPS SURG CHOLECYSTECTOMY W/CHOLANGIOGRAPHY 10-07-13 ALLERGIES Amoxicillin and Inderal [Propranolol] MEDICATIONS - albuterol HFA (PROVENTIL HFA, VENTOLIN HFA) 90 mcg/actuation inhaler Inhale 2 Puffs as instructed every 6 hours as needed for wheezing/shortness of breath. - atomoxetine (STRATTERA) 40 mg capsule take 1 capsule by mouth once daily in the morning - lamoTRIgine (LAMICTAL) 200 mg tablet Take by mouth. - metFORMIN (GLUCOPHAGE) 500 mg tablet Take by mouth. (Patient not taking: Reported on 07/05/2024) - lisinopril (ZESTRIL, PRINIVIL) 10 mg tablet Take 1 tablet by mouth once daily. FAMILY HISTORY Problem Relation Age of Onset - Hypertension Mother - Diabetes Mother - None Father - Diabetes Maternal Grandmother - Thyroid Maternal Grandmother - Diabetes Maternal Grandfather - Asthma Paternal Grandmother - Diabetes Maternal Aunt - Hypertension Maternal Aunt Social History Tobacco Use - Smoking status: Every Day Current packs/day: 0.00 Types: Cigarettes Last attempt to quit: 05/14/2014 Years since quittin.1 - Smokeless tobacco: Never Substance Use Topics - Alcohol use: No - Drug use: No Physical Exam Vitals and nursing note reviewed. Constitutional: General: She is not in acute distress. Appearance: Normal appearance. She is not ill-appearing. Cardiovascular: Rate and Rhythm: Normal rate and regular rhythm. Heart sounds: Normal heart sounds. Pulmonary: Effort: Pulmonary effort is normal. No respiratory distress. Breath sounds: Normal breath sounds. No wheezing or rales. Abdominal: General: There is no distension. Palpations: Abdomen is soft. There is no mass. Tenderness: There is no abdominal tenderness. There is no right CVA tenderness, left CVA tenderness or guarding. Skin: General: Skin is warm and dry. Neurological: Mental Status: She is alert. {ASSESSMENT/PLAN: 1. Urinary frequency - ICD9: 788.41, ICD10: R35.0 (primary diagnosis) acute - UA positive for hematuria and proteinuria - Send urine for culture - UA DIP, URINE (POC) - BACTERIAL CULTURE, URINE - HCG QUAL UR B/O 2. Vaginal discharge - ICD9: 623.5, ICD10: N89.8 - DONIS/TRICHOMONAS NAAT - BACTERIAL VAGINOSIS NAAT - GONORRHEA/CHLAMYDIA NAAT - no prescriptions provided today. Please treat as needed based on test results. Office Visit on 07/05/2024 Component Date Value Ref Range Status - GLUCOSE UA (POCT) 07/05/2024 Negative Negative mg/dL Final - BILIRUBIN UA (POCT) 07/05/2024 Negative Negative Final - KETONE UA (POCT) 07/05/2024 Negative Negative mg/dL Final - SPECIFIC GRAVITY UA (POCT) 07/05/2024 >=1.030 1.005 - 1.030 Final - HEMOGLOBIN/BLOOD UA (POCT) 07/05/2024 Small (A) Negative Final - PH UA (POCT) 07/05/2024 6.0 4.5 - 8.0 Final - PROTEIN UA (POCT) 07/05/2024 30 (A) Negative mg/dL Final - UROBILINOGEN UA (POCT) 07/05/2024 0.2 Normal E.U./dL Final - NITRITE UA (POCT) 07/05/2024 Negative Negative Final - LEUKOCYTES UA (POCT) 07/05/2024 Negative Negative Final - COLOR UA (POC (more content not included)... Normal [facility] UA DIP, URINE (POC)on 2024 BILIRUBIN UA (POCT) Negative Negative [facility] CLARITY UA (POCT) Clear [facility] COLOR UA (POCT) Yellow [facility] GLUCOSE UA (POCT) Negative Negative mg/dL [facility] Hemoglobin Ql (U) Small Abnormal Negative [facility] Interpretation and review of laboratory results Abnormal [facility] KETONE UA (POCT) Negative Negative mg/dL [facility] LEUKOCYTES UA (POCT) Negative Negative [facility] NITRITE UA (POCT) Negative Negative [facility] PH UA (POCT) 6 4.5 - 8.0 [facility] Protein Ql (U) 30 mg/dL Abnormal Negative [facility] SPECIFIC GRAVITY UA (POCT) >=1.030 1.005 - 1.030 [facility] UROBILINOGEN UA (POCT) 0.2 Normal E.U./d L [facility] Location:[address], [place], [address] [facility] POINT OF CARE [facility] UA DIP,URINE HCG (POC)on Beta HCG ( test) Ql (U) Negative Negative [facility] Comment on above: Location:[facility], [address], [place], [address] Net W[employer] Developer (POCT) Internal QC OK [facility] Location:[facility], [address], [place], [address] [facility] POINT OF CARE [facility] Anion gap in Serum or Plasma Ordered By: Fercho Montana on 06-17-2024 Anion gap [Moles/Vol] 13 mmol/L 5- [facility] BUN/creatinine ratioOrdered By: Fercho Montana on 06-17-2024 Urea nitrogen/Creatinine [Mass ratio] 12.3 mg/mg - [facility] Bilirubin, totalOrdered By: Fercho Montana on 06-17-2024 Bilirubin [Mass/Vol] 0.30 mg/dL 0.00-1.30 [facility] CBC-Complete Blood Cnt No Di ffon 06-17-2024 Erythrocyte distribution width (RBC) [Ratio] 12.7 % Normal 11.6-14.6 [facility] Comment on above: Performed By: #### L 506.1001, L100.0500, L500.4050, L501.9985 ####[facility] [address] [place], [address] Hematocrit (Bld) [Volume fraction] 42.2 % Normal 37-47 [facility] Comment on above: Performed By: #### L 506.1001, L100.0500, L500.4050, L501.9985 ####[facility] [address] [place], [address] Hemoglobin (Bld) [Mass/Vol] 14.0 g/dL Normal 12.0-15.0 [facility] Comment on above: Performed By: #### L 506.1001, L100.0500, L500.4050, L501.9985 ####[facility] [address] [place], [address] MCH (RBC) [Entitic mass] 29.2 pg Normal 27.0-32.0 [facility] Comment on above: Performed By: #### L 506.1001, L100.0500, L500.4050, L501.9985 ####[facility] [address] [place], [address] MCHC (RBC) [Mass/Vol] 33.2 g/dL Normal 32-36 [facility] Comment on above: Performed By: #### L 506.1001, L100.0500, L500.4050, L501.9985 ####[facility] [address] [place], [address] MCV (RBC) [Entitic vol] 87.9 fL Normal 81-99 [facility] Comment on above: Performed By: #### L 506.1001, L100.0500, L500.4050, L501.9985 ####[facility] [address] [place], [address] Platelet mean volume (Bld) [Entitic vol] 10.1 fL Normal 6.2-12.0 [facility] Comment on above: Performed By: #### L 506.1001, L100.0500, L500.4050, L501.9985 ####[facility] [address] [place], [address] Platelets (Bld) [#/Vol] 417 10*3/uL Normal 150-450 [facility] Comment on above: Performed By: #### L 506.1001, L100.0500, L500.4050, L501.9985 ####[facility] [address] [place], [address] RBC (Bld) [#/Vol] 4.80 10*6/uL Normal 4.2-5.4 [facility] Comment on above: Performed By: #### L 506.1001, L100.0500, L500.4050, L501.9985 ####[facility] [address] [place], [address] RDW SD 41.3 fl Normal 35.1-43.9 [facility] Comment on above: Performed By: #### L 506.1001, L100.0500, L500.4050, L501.9985 ####[facility] [address] [place], [address] WBC (Bld) [#/Vol] 10.3 10*3/uL Normal 4.4-11.0 [facility] Comment on above: Performed By: #### L 506.1001, L100.0500, L500.4050, L501.9985 ####[facility] [address] [place], [address] Carbon dioxide, total [Moles /volume] in Central venous bloodOrdered By: Fercho Montana on 06-17-2024 CO2 [Moles/Vol] 24.2 mmol/L 21.0-32.0 [facility] Chloride assayOrdered By: Fatimah Montana on 06-17-2024 Chloride [Moles/Vol] 102 mmol/L 98-108 [facility] Comprehensive Metabolic Prof ilon 06-17-2024 Albumin [Mass/Vol] 4.3 g/dL Normal 3.5-5.0 [facility] Comment on above: Performed By: #### L 506.1001, L100.0500, L500.4050, L501.9985 ####[facility] [address] [place], [address] Albumin/Globulin [Mass ratio] 1.3 {ratio} Normal 0.9-2.4 [facility] Comment on above: Performed By: #### L 506.1001, L100.0500, L500.4050, L501.9985 ####[facility] [address] [place], [address] ALK PHOS 73 U/L Normal 35-104 [facility] Comment on above: Performed By: #### L 506.1001, L100.0500, L500.4050, L501.9985 ####[facility] [address] [place], [address] ALT [Catalytic activity/Vol] 14 U/L Normal <=34 [facility] Comment on above: Performed By: #### L 506.1001, L100.0500, L500.4050, L501.9985 ####[facility] [address] [place], [address] AST [Catalytic activity/Vol] 20 U/L Normal <=31 [facility] Comment on above: Performed By: #### L 506.1001, L100.0500, L500.4050, L501.9985 ####[facility] [address] [place], [address] Bilirubin [Mass/Vol] 0.30 mg/dL Normal 0.00-1.30 [facility] Comment on above: Performed By: #### L 506.1001, L100.0500, L500.4050, L501.9985 ####[facility] [address] [place], [address] BUN/CRE 12.3 RATIO Normal 10-20 [facility] Comment on above: Performed By: #### L 506.1001, L100.0500, L500.4050, L501.9985 ####[facility] [address] [place], [address] Calcium [Mass/Vol] 9.2 mg/dL Normal 7.6-11.0 [facility] Comment on above: Performed By: #### L 506.1001, L100.0500, L500.4050, L501.9985 ####[facility] [address] [place], [address] Chloride [Moles/Vol] 102 mmol/L Normal 98-108 [facility] Comment on above: Performed By: #### L 506.1001, L100.0500, L500.4050, L501.9985 ####[facility] [address] [place], [address] CO2 [Moles/Vol] 24.2 mmol/L Normal 21.0-32.0 [facility] Comment on above: Performed By: #### L 506.1001, L100.0500, L500.4050, L501.9985 ####[facility] [address] [place], [address] Creatinine [Mass/Vol] 0.76 mg/dL Normal 0.70-1.20 [facility] Comment on above: Performed By: #### L 506.1001, L100.0500, L500.4050, L501.9985 ####[facility] [address] [place], [address] GAP 13 Normal 5-15 [facility] Comment on above: Performed By: #### L 506.1001, L100.0500, L500.4050, L501.9985 ####[facility] [address] [place], [address] GFR/1.73 sq M.predicted among non-blacks MDRD (S/P/Bld) [Vol rate/Area] 109 mL/min/{1.73_m2} Normal >60 [facility] Comment on above: Result Comment: mL/m in/1.73m2 CKD-EPI Creatinine Equation (2020) Performed By: #### L 506.1001, L100.0500, L500.4050, L501.9985 ####[facility] [address] [place], [address] Globulin (S) [Mass/Vol] 3.2 g/dL Normal 2.2-4.2 [facility] Comment on above: Performed By: #### L 506.1001, L100.0500, L500.4050, L501.9985 ####[facility] [address] [place], [address] Glucose [Mass/Vol] 101 mg/dL High 70-99 [facility] Comment on above: Performed By: #### L 506.1001, L100.0500, L500.4050, L501.9985 ####[facility] [address] [place], [address] Potassium [Moles/Vol] 4.1 mmol/L Normal 3.3-5.1 [facility] Comment on above: Performed By: #### L 506.1001, L100.0500, L500.4050, L501.9985 ####[facility] [address] [place], [address] Sodium [Moles/Vol] 139 mmol/L Normal 133-145 [facility] Comment on above: Performed By: #### L 506.1001, L100.0500, L500.4050, L501.9985 ####[facility] [address] [place], [address] T PROT 7.5 g/dL Normal 5.9-8.4 [facility] Comment on above: Performed By: #### L 506.1001, L100.0500, L500.4050, L501.9985 ####[facility] [address] [place], [address] Urea nitrogen [Mass/Vol] 9 mg/dL Normal 4-19 [facility] Comment on above: Performed By: #### L 506.1001, L100.0500, L500.4050, L501.9985 ####[facility] [address] [place], [address] Erythrocyte distribution wid th ratioOrdered By: Fercho oMntana on 06-17-2024 Erythrocyte distribution width (RBC) [Ratio] 12.7 % 11.6-14.6 [facility] Erythrocyte distribution wid th standard deviationOrdered By: Fercho Montana on 06-17-2024 Erythrocyte distribution width (RBC) [Entitic vol] 41.3 fL 35.1-43.9 [facility] Erythrocyte distribution width (RBC) [Ratio] 41.3 fl 35.1-43.9 [facility] GFR/1.73 sq M.predicted wilner g non-blacks MDRD (S/P/Bld) [Vol rate/Area]Ordered By: Fercho Montana on 06-17-2024 Estimated GFR (MDRD) Non-Af Amer 109 >60 [facility] Comment on above: mL/min/1.73m2 CKD-EP I Creatinine Equation (2020) Glomerular filtration rate ( GFR) estimation/1.73 sq m using serum, plasma, or whole bOrdered By: Fercho Montana on 06-17-2024 GFR/1.73 sq M.predicted among non-blacks MDRD (S/P/Bld) [Vol rate/Area] 109 mL/min/{1.73_m2} >60 [facility] Comment on above: mL/min/1.73m2 CKD-EP I Creatinine Equation (2020) Hematocrit Auto (Bld) [Volum e fraction]Ordered By: Fercho Montana on 06-17-2024 Hematocrit (Bld) [Volume fraction] 42.2 % 37-47 [facility] Hemoglobin A1con 06-17-2024 HbA1c (Bld) [Mass fraction] 6.0 % Normal <=5.6 [facility] Comment on above: Performed By: #### L 506.1001, L100.0500, L500.4050, L501.9985 ####[facility] [address] [place], [address] Hemoglobin A1c percentageOrd ered By: Fercho Montana on 06-17-2024 HbA1c (Bld) [Mass fraction] 6.0 % >5.7 [facility] Hemoglobin measurementOrdere d By: Fercho Montana on 06-17-2024 Hemoglobin (Bld) [Mass/Vol] 14.0 g/dL 12.0-15.0 [facility] Internal Medicine Office Vis iton 06-17-2024 Internal Medicine Office Visit [facility] [address] [place], [place] [address] OFFICE VISIT Date of Service: 06/17/24 MR#: [id number] Acct: [id number] Name: GENET COBB Rep #: [id number] : 1995 Provider: DEJA Lang Age/Sex: 29/F Location: [facility] Status: Signed Intake Vital Signs 06/08/24 09:54 06/17/24 08:05 Height 5 ft 3 in 5 ft 3 in Weight: 215 lb 219 lb BMI 38.0 38.7 BP 134/72 H 138/98 H Blood Pressure Location Lt brachial Lt brachial Position Sitting Sitting Respiration 15 18 Pulse 91 83 Pulse Source Monitor Monitor Temp 98.4 F 98.6 F Temp Source Temporal Temporal Pulse Oximetry (%) 99 97 Oxygen Delivery Method room air room air Intake Visit Reasons: CHEST TIGHTNESS Chief Complaint: CHEST TIGHTNESS Is patient in pain?: No Allergies amoxicillin (Amoxicillin) Allergy (Verified 06/17/24 08:07) Hives propranolol HCl (From Inderal LA) Allergy (Verified 06/17/24 08:07) Hives Medications ???Medication ???Instructions ???Recorded ???Confirmed ???Type lisinopril 10 mg tablet 10 mg PO DAILY #90 tabs 01/01/24 0 06/17/24 Rx cholecalciferol (vitamin D3) 1,250 1,250 mcg PO QWEEK #20 caps 02/1106/17/24 Rx mcg (50,000 unit) capsule inulin 2 gram chewable tablet g PO 02/22/24 06/17/24 History (Fiber Gummies) atomoxetine 40 mg capsule 80 mg PO QAM 06/08/24 06/17/24 His tory lamotrigine 150 mg tablet 150 mg PO BID 06/08/24 06/17/24 Hi story (Lamictal) omeprazole 20 mg tablet,delayed 20 mg PO QDAY PRN 06/08/24 5 History release clindamycin PO 06/17/24 History meloxicam 15 mg tablet 15 mg PO QDAY #30 tabs 06/17/24 Rx Have you fallen in the past year?: No Nurse's Note: pt reports that she had an episode of chest pain. pt states that it feels strained when she moves her right arm states that ICY HOT helps with the discomfort. pt states that this has happened about 3 times in the past year with the most recent episode being about 4 days ago pt states that she was recently started on clindamycin by her dentist unsure of dosage. [facility] Medical History MUNOZ (nonalcoholic steatohepatitis) Encounter for vitamin deficiency screening Atypical chest pain Chronic constipation Subclinical hypothyroidism Hypothyroidism GERD (gastroesophageal reflux disease) Wears glasses Depression Marijuana use Diabetes History of ulceration Gastric reflux Smoker Shortness of breath on exertion History of echocardiogram History of pneumonia Chronic vomiting Gastric ulcer Type 2 diabetes mellitus Ulcer Diabetes Tobacco abuse Morbid obesity Hypertension Anxiety Surgical History Hx of cholecystectomy Hx of colonoscopy History of cholecystectomy Family History Unknown Diabetes Multiple sclerosis cousin Mother Diabetes Hypertension Grandmother Diabetes Hypertension Aunt Multiple sclerosis Social History household members: other details: mom current occupational status: disabled Smoking Status: Former smoker Tobacco: How many years used: 7 alcohol intake: never substance use type: former substance user Date of last use: 04/16/2020, marijuana and methamphetamine caffeine: Yes Type: carbonated beverages Number of servings: 4 and tea what type of physical activity do you participate in: walking seatbelt use: always do you feel safe at home: Yes additional social history: unemployed HPI HPI Chief Complaint: CHEST TIGHTNESS Details: GENET COBB, is a 29 F who presents to the office today for some chest pains. She states that she has had a few episodes over the past year. She states that it is difficult to describe in that it is not really a pain but that it is a discomfort on the right side of the chest. She states that it is kind of always there but it has episodes where it is much more pronounced. When it happens it will stay for several days before resolving. Pains are located on the right side of the chest just next to the sternum. She states that they always stay on that right side just along the midline of the chest and do not radiate elsewhere (nothing to the neck, jaw, or back.) She has noticed that aggravating factors include when she pushes on this area or if she would go to stretch the chest or maybe even reach across the chest or if she has rapid movements such as if she would do a trunk rotation or stand up abruptly. All of these things bring about the pain. She has not noticed the pain specifically with walking or with stairs or with other exertions. She states that she has not notice any associated symptom (more content not included)... Normal [facility] L506.1001on 06-17-2024 Vitamin D 25-OH 67.1 ng/mL Normal 30-100 [facility] Comment on above: Result Comment: Lou min D Status Deficiency: <20 ng/mL (50nmol/L) Insufficiency: 20-30 ng/mL (50-75 nmol/L) Sufficiency: 30-100 ng/mL (75-250 nmol/L) Toxicity: >100 ng/mL (>250 nmol/L) Performed By: #### L 506.1001, L100.0500, L500.4050, L501.9985 ####[facility] [id number] [place], [address] Laboratory - Chemistry and C hemistry - challengeOrdered By: Fercho Montana on 06-17-2024 AST [Catalytic activity/Vol] 20 U/L <32 [facility] MCV (mean corpuscular volume ) determinationOrdered By: Fercho Montana on 06-17-2024 MCV (RBC) [Entitic vol] 87.9 fL 81-99 [facility] Mean corpuscular hemoglobin (MCH) determinationOrdered By: Fercho Montana on 06-17-2024 MCH (RBC) [Entitic mass] 29.2 pg 27.0-32.0 [facility] Mean corpuscular hemoglobin concentration (MCHC) determinationOrdered By: Fercho Montana on 06-17-2024 MCHC (RBC) [Mass/Vol] 33.2 g/dL 32-36 [facility] Mean platelet volume determi nationOrdered By: Fercho Montana on 06-17-2024 Platelet mean volume (Bld) [Entitic vol] 10.1 fL 6.2-12.0 [facility] Platelet countOrdered By: Fatimah ttmartha Montana on 06-17-2024 Platelets (Bld) [#/Vol] 417 10*3/uL 150-450 [facility] Potassium (Unsp spec) [Mass/ Vol]Ordered By: Fercho Montana on 06-17-2024 Potassium [Moles/Vol] 4.1 mmol/L 3.3-5.1 [facility] Potassium measurement (mass/ volume)Ordered By: Fercho Montana on 06-17-2024 Potassium (Unsp spec) [Mass/Vol] 4.1 mmol/L 3.3-5.1 [facility] RBC Auto (Bld) [#/Vol]Ordere d By: Fercho Montana on 06-17-2024 RBC (Bld) [#/Vol] 4.80 10*6/uL 4.2-5.4 [facility] Serum creatinine measurement (mass/volume)Ordered By: Fercho Montana on 06-17-2024 Creatinine [Mass/Vol] 0.76 mg/dL 0.70-1.20 [facility] Serum globulin measurementOr dered By: Fercho Montana on 06-17-2024 Globulin (S) [Mass/Vol] 3.2 g/dL 2.2-4.2 [facility] Serum glucose measurement (m ass/volume)Ordered By: Fercho Montana on 06-17-2024 Glucose [Mass/Vol] 101 mg/dL High 70-99 [facility] Serum or plasma alanine hassan otransferase (ALT) measurementOrdered By: Fercho Montana on 06-17-2024 ALT [Catalytic activity/Vol] 14 U/L <35 [facility] Serum or plasma albumin luis urement (mass/volume)Ordered By: Fercho Montana on 06-17-2024 Albumin [Mass/Vol] 4.3 g/dL 3.5-5.0 [facility] Serum or plasma albumin/glob ulin mass ratioOrdered By: Fercho Montana on 06-17-2024 Albumin/Globulin [Mass ratio] 1.3 {ratio} 0.9-2.4 [facility] Serum or plasma alkaline viktor sphatase measurementOrdered By: Fercho Montana on 06-17-2024 ALP [Catalytic activity/Vol] 73 U/L 35-104 [facility] Serum or plasma calcium luis urement (mass/volume)Ordered By: Fercho Montana on 06-17-2024 Calcium [Mass/Vol] 9.2 mg/dL 7.6-11.0 [facility] Serum or plasma urea nitroge n measurement (mass/volume)Ordered By: Fercho Montana on 06-17-2024 Urea nitrogen [Mass/Vol] 9 mg/dL 4-19 [facility] Sodium levelOrdered By: Michael Montana on 06-17-2024 Sodium [Moles/Vol] 139 mmol/L 133-145 [facility] Total proteinOrdered By: Tima Montana on 06-17-2024 Protein [Mass/Vol] 7.5 g/dL 5.9-8.4 [facility] Vitamin D, 25-hydroxyOrdered By: Fercho Montana on 06-17-2024 Vitamin D 25-Hydroxy 67.1 ng/mL 30-100 [facility] Comment on above: Vitamin D StatusDefi ciency: <20 ng/mL (50nmol/L)Insufficiency: 20-30 ng/mL (50-75 nmol/L)Sufficiency: 30-100 ng/mL (75-250 nmol/L)Toxicity: >100 ng/mL (>250 nmol/L) White blood cell (WBC) count Ordered By: Fercho Montana on 06-17-2024 WBC (Bld) [#/Vol] 10.3 10*3/uL 4.4-11.0 [facility] CNOVon 06-15-2024 CNOV Office Visit (UCWSTR ) GENET COBB ([id number]) 1995 F Date Time Provider Department 06/15/24 10:30 AM HARRIETT CASTILLO [facility] During your visit today, we recorded the following information about you: Temperature Pulse Respiration Blood pressure 98.4 degrees 110/minute 18/minute 124/72 Weight 98.9 kg Harriett Castillo, MAGGIE.FABRIC 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 06/15/2024 12:35 PM Signed This note was created using Crunchfishriter. Subjective Genet Cobb is a 29 year old female. 29 year old female with PMH DM, HTN, ADHD and biplar presents for dental Acute onset 2 days Although in further talks she states it has been bothering her for quite some time Left lower molar +gum swelling +pain with chewing +sensitivity to hot and cold Denies fever or chills Denies inability to open or close mouth Denies hot potato voice Denies that she has a current dentist, States that she has been fired The history is provided by the patient. No electromechanical equipment assembler was used. Dental Problem This is a recurrent problem. Episode onset: 2 days ago. The problem occurs constantly. The problem has been gradually worsening. Pertinent negatives include no abdominal pain, anorexia, arthralgias, change in bowel habit, chest pain, chills, congestion, coughing, diaphoresis, fatigue, fever, headaches, joint swelling, myalgias, nausea, neck pain, numbness, rash, sore throat, swollen glands, urinary symptoms, vertigo, visual change, vomiting or weakness. Exacerbated by: eating and drinking. Hot and cold. She has tried nothing for the symptoms. The treatment provided no relief. PAST MEDICAL HISTORY Diagnosis Date Anxiety Elevated blood pressure 01/07/2011 Excessive anger Headache(784.0) 03/13/2011 History of drug use meth and marajuana IBS (irritable bowel syndrome) Left ventricular hypertrophy Overweight(278.02) 01/07/2011 PAST SURGICAL HISTORY Procedure Laterality Date COLONOSCOPY FLX DX W/COLLJ SPEC WHEN PFRMD 07/04/2015 Colonoscopy LAPS SURG CHOLECYSTECTOMY W/CHOLANGIOGRAPHY 10-07-13 ALLERGIES Amoxicillin and Inderal [Propranolol] MEDICATIONS albuterol HFA (PROVENTIL HFA, VENTOLIN HFA) 90 mcg/actuation inhaler Inhale 2 Puffs as instructed every 6 hours as needed for wheezing/shortness of breath. atomoxetine (STRATTERA) 40 mg capsule take 1 capsule by mouth once daily in the morning lamoTRIgine (LAMICTAL) 200 mg tablet Take by mouth. metFORMIN (GLUCOPHAGE) 500 mg tablet Take by mouth. lisinopril (ZESTRIL, PRINIVIL) 10 mg tablet Take 1 tablet by mouth once daily. clindamycin (CLEOCIN) 150 mg capsule Take 3 capsules by mouth three times a day for 7 days. FAMILY HISTORY Problem Relation Age of Onset Hypertension Mother Diabetes Mother None Father Diabetes Maternal Grandmother Thyroid Maternal Grandmother Diabetes Maternal Grandfather Asthma Paternal Grandmother Diabetes Maternal Aunt Hypertension Maternal Aunt Social History Tobacco Use Smoking status: Every Day Current packs/day: 0.00 Types: Cigarettes Last attempt to quit: 05/14/2014 Years since quittin.0 Smokeless tobacco: Never Substance Use Topics Alcohol use: No Drug use: No Review of Systems Constitutional: Negative for chills, diaphoresis, fatigue and fever. HENT: Positive for dental problem. Negative for congestion and sore throat. Eyes: Negative for pain, discharge, redness and itching. Respiratory: Negative for apnea, cough, choking and chest tightness. Cardiovascular: Negative for chest pain. Gastrointestinal: Negative for abdominal pain, anorexia, change in bowel habit, nausea and vomiting. Musculoskeletal: Negative for arthralgias, joint swelling, myalgias and neck pain. Skin: Negative for rash. Allergic/Immunologic: Negative for environmental allergies, food allergies and immunocompromised state. Neurological: Negative for dizziness, vertigo, facial asymmetry, weakness, numbness and headaches. Hematological: Negative for adenopathy. Does not bruise/bleed easily. Psychiatric/Behavioral : Negative for agitation and behavioral problems. Objective BP 124/72 Pulse 110 Temp 36.9 ?C (98.4 ?F) Resp 18 Wt 98.9 kg (218 lb 0.6 oz) LMP 03/11/2024 (Within Days) SpO2 98% BMI 37.43 kg/m? Physical Exam Vitals and nursing note reviewed. Constitutional: General: She is not in acute distress. Appearance: Normal appearance. She is normal weight. She is not ill-appearing, toxic-appearing or diaphoretic. HENT: Head: Normocephalic and atraumatic. Right Ear: Ear canal and external ear normal. Left Ear: Ear canal and external ear normal. Nose: Nose normal. No congestion or rhinorrhea. Mouth/Throat: Mouth: Mucous membranes are moist. Dentition: Abnormal dentition. Pharynx: No oropharyngeal exudate or posterior oropharyngeal erythema. Comments: Widespread dental decay and missing dentition Eyes: General: (more content not included)... Normal [facility] Gastroenterology Visit Repor ton 06-10-2024 Gastroenterology Visit Report [facility] Gastroenterology [address] [place] [address] OFFICE VISIT Date of Service: 06/10/24 MR#: [id number] Acct: [id number] Name: GENET COBB Rep #: [id number] : 1995 Provider: DEJA Saldana Age/Sex: 29/F Location: [facility] Status: Signed Intake Vital Signs 12/08/23 20:29 06/08/24 09:54 Height 5 ft 3 in 5 ft 3 in Intake Visit Reasons: 6 M FU Chief Complaint: chest pain 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 Allergies amoxicillin (Amoxicillin) Allergy (Verified 06/08/24 09:58) Hives propranolol HCl (From Inderal LA) Allergy (Verified 06/08/24 09:58) Hives Patient : No Have you fallen in the past year?: No Nurse's Note: OV 06.10.24 Pt here for f/u. Pt reports chest discomfort, LLQ abdominal pain, nausea, diarrhea, gas, indigestion and constipation. Reports she has to strain to produce a bm. She does continue to smoke 1-2g marijuana daily. Reports she takes 6-7 tums a day. Continues taking omeprazole when she remembers [facility] Medical History MUNOZ (nonalcoholic steatohepatitis) Encounter for vitamin deficiency screening Atypical chest pain Chronic constipation Subclinical hypothyroidism Hypothyroidism GERD (gastroesophageal reflux disease) Wears glasses Depression Marijuana use Diabetes History of ulceration Gastric reflux Smoker Shortness of breath on exertion History of echocardiogram History of pneumonia Chronic vomiting Gastric ulcer Type 2 diabetes mellitus Ulcer Diabetes Tobacco abuse Morbid obesity Hypertension Anxiety Surgical History Hx of cholecystectomy Hx of colonoscopy History of cholecystectomy Family History Unknown Diabetes Multiple sclerosis cousin Mother Diabetes Hypertension Grandmother Diabetes Hypertension Aunt Multiple sclerosis Social History household members: other details: mom current occupational status: disabled Smoking Status: Former smoker Tobacco: How many years used: 7 alcohol intake: never substance use type: former substance user Date of last use: 04/16/2020, marijuana and methamphetamine caffeine: Yes Type: carbonated beverages Number of servings: 4 and tea what type of physical activity do you participate in: walking seatbelt use: always do you feel safe at home: Yes additional social history: unemployed HPI HPI Chief Complaint: chest pain Details: GENET COBB, is a 29 F who presents to the office today for f/u. ROS Const Constitutional: No fatigue, fever(s) or weight change ENT ENT: No difficulty swallowing Gastro GI: No abdominal pain, belching, bloating, change in bowel habits, change in stool character, coffee ground emesis, constipation, cramping, diarrhea, heartburn, difficulty swallowing, feeling full early, excessive flatus, incontinent of stools, Vomiting blood/hematemesis, Blood in stool, loose stools, Black,tarry stools, nausea/dyspepsia, pain with swallowing, vomiting or other Musc Musculoskeletal: No joint pain Skin Skin: No yellowing of the eye or itchy eyes Psych Psychiatric: No anxiety and No depression Endo Endocrine: No fatigue or weight change Aller/Imm Allergy/Immunologic: No itchy eyes Yousif/Lymp Hematologic/Lymphatic: No easy bleeding or easy bruising Assessment and Plan Assessment and Plan (1) GERD (gastroesophageal reflux disease): Status: Chronic Qualifiers: Esophagitis presence: esophagitis presence not specified Qualified Code(s): K21.9 - Gastro- esophageal reflux disease without esophagitis Plan: This is a 29 yo female pt here today for f/u regarding her GERD and IBS. Pt has had some right sided chest discomfort. SHe feels this may be related to her GERD. I recommended she f/u with her PCP to rule out a cardia etiology. She will be put on the schedule for an EGD to assess her upper GI tract. SHe will continue fiber supplement and take miralax as need for her alternating bowels. -EGD -PCP -continue fiber and miralax prn (2) Irritable bowel syndrome with alternating bowel habits: Status: Chronic Coding Level of Care Code Off vis,est,level 3 Diagnoses Gastroesophageal reflux disease, unspecified whether esophagitis present K21.9 Esophagitis presence: esophagitis presence not specified Irritable bowel syndrome with alternating bowel habits K58.2 Clinical Quality Measures Falls Risk Screening/Assistive Devices Have you fallen in the past year?: No 06/10/24 1309 Date Jennifer Parada Signature: Date (more content not included)... Normal [facility] Neurology Visit Reporton Neurology Visit Report [facility] [address], [address] [place] [address] OFFICE VISIT Date of Service: 06/08/24 MR#: [id number] Acct: [id number] Name: GENET COBB Rep #: [id number] : 1995 Provider: Dr. Bruce lara MD Age/Sex: 29/F Location: [facility]. Status: Signed [facility] Chief Complaint: [facility] Care Details: The patient is a 29-year-old right handed female who presents to [facility]. She was referred 04/29/[address] Skyler Rodriges with [facility] for forgetfulness. This patient presents by herself for evaluation. Patient is seen with nurse practitioner Krys Sheridan. Patient has a history of multiple medical problems and has a diagnosis of bipolar disorder. She has a prior history of methamphetamine abuse. She has not used methamphetamine for about 4 years. She is a diabetic. She does have hypertension. She has had irritable bowel syndrome with constipation since about age 13. She has a history of gastric ulcer and probable esophageal reflux. She has multiple other medical diagnoses in her problem list as well. Patient is somewhat uncertain as to the exact difficulties that she is having. She does indicate that she may have some recent memory deficit but also notes that she has a tendency to ruminate and be anxious. In order to treat the anxiety she will smoke marijuana through a pipe. Patient has not had a prior concern of memory deficit. She may have been changing over the past year or so. Issues seem to be some forgetfulness as well as apparent decrease in ability to concentrate or focus on a task. For example she may often forget her grocery list and needs to write down what ever it is she needs. Patient does indicate that she has a sleep disturbance. She has been attempting to cope with the sleep disturbance by going to bed at 11:00 instead of earlier. She will wake up multiple times throughout the night. When she does she may get up to go to the bathroom and then attempt to go back to sleep. Recently she has tried to increase some of her activity. She is currently on SSI disability for bipolar disorder. She does work around the house and help take care of her mother and grandmother. Grandmother was recently placed in a senior living. Patient has been told that she does snore. Daytime napping does not appear to be a feature. Reviewing the chart I note that the patient has vitamin D deficiency which is profound. Primary care physician is currently treating this. I also note that the patient did have a CT of the head. CT is reported as demonstrating no acute changes. Cardiac echo was on the chart which is unremarkable. Patient does not have a history of seizures or migraines. No neurologic history noted. No familial history of neurologic disorders noted. ROS: General No recent viral illnesses. Head: No traumas no headache Eyes: No loss of vision although at times she has some difficulty focusing Ears: No loss of hearing Oropharynx: No difficulty swallowing no pharyngitis Respiratory: No hemoptysis. Occasionally has some discomfort when breathing or taking deep breath particular just to the right of sternum. Patient is prone to bronchitis and does produce phlegm routinely. Cardiac: Can occasionally feel palpitation which may be associated with anxiety. Abdomen: Does note that she had a prior history of bleeding gastric ulcer. Does note that she may have reflux. Does note that she has irritable bowel constipation syndrome. Does not cough up blood or vomit blood. : No hematuria. Patient does not practice control. She is aware that she may become and is sexually active. She appears indifferent and this particular aspect. Extremities: No traumas. No arthritic changes. Skin: No rashes. Neurologic: No seizures no strokes Exam Const Other: Vital signs blood pressure 134/72 heart rate 91 regular respiration 15 temperature is 98.4 O2 sat is 99% room air BMI is 38% General: Patient resting comfortably in chair. HEENT: Normocephalic. Conjunctiva clear. Hearing intact Respiratory: Soft rhonchi both right and left lung near sternum. Cardiac: Tachycardia without murmur Abdomen: Obese Extremities without evidence of trauma Skin intact on exposed areas. Neurologic examination: Mental status: Awake alert oriented to person place day month and year. Memory showed 3/3 for immediate recall and 2 for 3 and recent recall. Language show normal clinical massage therapist expression re petition and naming. Mood and affect appear appropriate at this time. Patient was smiling and able to express humor. Not overtly depressed at the moment. No delusions or hallucinations noted. Cooperative. Mini-Mental status 26 out of 30. Patient may have been slightly anxious. CN II-XII: Pupils equal round react to light about 5 mm in size. Extraocular muscles are intact (more content not included)... Normal [facility] Internal Medicine Office Vis lizette 04-29-2024 Internal Medicine Office Visit [facility] [address] [place] [address] OFFICE VISIT Date of Service: 04/29/24 MR#: [id number] Acct: [id number] Name: GENET COBB Rep #: [id number] : 1995 Provider: Dr. Skyler dumont MD Age/Sex: 29/F Location: [facility] Status: Signed Intake Vital Signs 01/01/24 15:19 02/22/24 14:58 04/29/24 10:35 Height 5 ft 3 in 5 ft 3 in 5 ft 3 in Weight: 209 lb BMI 37.0 BP 126/70 H Blood Pressure Location Lt brachial Position Sitting Respiration 16 Pulse 102 H Pulse Source Monitor Temp 97.8 F Temp Source Temporal Pulse Oximetry (%) 98 Oxygen Delivery Method room air Intake Visit Reasons: 4 M FU Chief Complaint: Follow-up chronic conditions. 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 Accompanied by: Self Is patient in pain?: No Allergies amoxicillin (Amoxicillin) Allergy (Verified 04/29/24 10:30) Hives propranolol HCl (From Inderal LA) Allergy (Verified 04/29/24 10:30) Hives Medications ???Medication ???Instructions ???Recorded ???Confirmed ???Type lamotrigine 200 mg tablet 150 mg PO BID 12/05/20 04/29/24 History (Lamictal) haloperidol 5 mg tablet 5 mg PO PRN PRN Anxiety 04/09/22 04/29/24 History lansoprazole 30 mg capsule,delayed 30 mg PO DAILY #90 caps 10/03/22 04/29/24 Rx release (Prevacid) atomoxetine 40 mg capsule 40 mg PO QAM 06/26/23 04/29/24 History hydrocortisone 1 %-pramoxine 1 % 1 applic DE QHS PRN hemorrhoids 09/04/23 04/29/24 Rx rectal foam (Proctofoam HC) #10 grams polyethylene glycol 3350 17 17 g PO DAILY #119 grams 09/15/23 04/29/24 Rx gram/dose oral powder lactulose 10 gram/15 mL oral 10 g (15 mL) PO BID PRN 09/30/23 04/29/24 Rx solution constipation #3,000 mL lisinopril 10 mg tablet 10 mg PO DAILY #90 tabs 01/01/24 04/29/24 Rx cholecalciferol (vitamin D3) 1,250 1,250 mcg PO QWEEK #20 caps 02/22/24 04/29/24 Rx mcg (50,000 unit) capsule inulin 2 gram chewable tablet g PO 02/22/24 04/29/24 History (Fiber Gummies) metformin 500 mg tablet 500 mg PO ONCE 02/22/24 04/29/24 History PFSH Medical History MUNOZ (nonalcoholic steatohepatitis) Encounter for vitamin deficiency screening Atypical chest pain Chronic constipation Subclinical hypothyroidism Hypothyroidism GERD (gastroesophageal reflux disease) Wears glasses Depression Marijuana use Diabetes History of ulceration Gastric reflux Smoker Shortness of breath on exertion History of echocardiogram History of pneumonia Chronic vomiting Gastric ulcer Type 2 diabetes mellitus Ulcer Diabetes Tobacco abuse Morbid obesity Hypertension Anxiety Surgical History Hx of cholecystectomy Hx of colonoscopy History of cholecystectomy Family History Unknown Diabetes Multiple sclerosis cousin Mother Diabetes Hypertension Grandmother Diabetes Hypertension Aunt Multiple sclerosis Social History Smoking Status: Current every day smoker tobacco type: cigarettes and e-cigarettes Tobacco: How many years used: 7 alcohol intake: never substance use type: former substance user Date of last use: 04/16/2020, marijuana and methamphetamine caffeine: Yes what type of physical activity do you participate in: walking seatbelt use: always do you feel safe at home: Yes additional social history: unemployed HPI HPI Chief Complaint: Follow-up chronic conditions. Details: GENET COBB, is a 29 F who presents to the office today for follow-up of her chronic conditions. Also has some concerns. Her main concern at this time is ongoing forgetfulness. She states that she cannot explain it but gets very emotional when she has to talk about it. She feels that she has had quite a few lapses in her memory. Would like to get evaluated by neurology. History of meth amphetamine use for about 8 years, has been sober for 4 years. History of hypertension, blood pressure today is at 126/70 mmHg. Currently on lisinopril which she is taking as prescribed. No chest pain, palpitation or shortness of breath. Also history of diabetes mellitus currently on metformin, last A1c was stable at 5.5. No concerns for hypoglycemia. Other chronic medical conditions are stable. ROS Const Constitutional: No body ache, chills, excessive sweating, fatigue, fever(s), frequent falls, headache(s), snoring, weakness, weight change or change in appetite Eyes Eyes: No blurry vision, change in vision, dry eyes, bulging eyes, floaters, visual disturbances, eye pain or Light sensitivity ENT ENT: No abnormal hearing, ear or mastoid pain, tinnitus, balance problems, nosebleed/epistaxis, nasal c (more content not included)... Normal [facility] Bacteria Wnd Culton 04-09-20 24 Bacteria identified Cx Nom (Wound) ORGANISM ID: 1 Few Coagulase negative staphylococcus species No further workup GRAM STAIN: No organisms seen No Polymorphonuclear Leukocytes Abnormal [facility] Comment on above: Performed By: #### 6 462-6 ####[facility] LABCLIA [id number] [facility] [id number] [place], [place] [id number] [facility] CNOVon 04-09-2024 CNOV Office Visit (UCWSTR ) GENET COBB ([id number]) 1995 F Date Time Provider Department 04/09/24 11:15 AM FINESSE JAVED [facility] During your visit today, we recorded the following information about you: Temperature Pulse Respiration Blood pressure 98.9 degrees 109/minute 18/minute 126/85 Weight Last Period 96 kg 03/11/24 Finesse Javed PA 04/09/2024 11:49 AM Signed This note was created using [employer]. Subjective Sarahydivya Cobb is a 29 year old female. HPI 29-year-old female presents for right hand wound. Patient states that she has 2 areas on her right hand that are raised, red and draining some clear drainage starting 2 days ago. She denies any injury or burn that she can recall. She states that she was exposed to her grandma who has MRSA currently. She states that she did not touch her grandmother's wound and use a lot of handwashing, but after being around her grandma, she noticed the spots on her hand the next day. She states it has not been draining any pus drainage, but just some clear drainage today. She states they are little bit painful. No itchiness. No rash anywhere else. No fevers. States she recently finished prednisone and doxycycline several weeks ago for respiratory infection. PAST MEDICAL HISTORY Diagnosis Date Anxiety Elevated blood pressure 01/07/2011 Excessive anger Headache(784.0) 03/13/2011 History of drug use meth and marajuana IBS (irritable bowel syndrome) Left ventricular hypertrophy Overweight(278.02) 01/07/2011 PAST SURGICAL HISTORY Procedure Laterality Date COLONOSCOPY FLX DX W/COLLJ SPEC WHEN PFRMD 07/04/2015 Colonoscopy LAPS SURG CHOLECYSTECTOMY W/CHOLANGIOGRAPHY 10-07-13 ALLERGIES Amoxicillin and Inderal [Propranolol] MEDICATIONS albuterol HFA (PROVENTIL HFA, VENTOLIN HFA) 90 mcg/actuation inhaler Inhale 2 Puffs as instructed every 6 hours as needed for wheezing/shortness of breath. atomoxetine (STRATTERA) 40 mg capsule take 1 capsule by mouth once daily in the morning lamoTRIgine (LAMICTAL) 200 mg tablet Take by mouth. metFORMIN (GLUCOPHAGE) 500 mg tablet Take by mouth. lisinopril (ZESTRIL, PRINIVIL) 10 mg tablet Take 1 tablet by mouth once daily. mupirocin (BACTROBAN) 2 % ointment Apply to affected area three times a day for 7 days. doxycycline monohydrate 100 mg tablet Take 1 tablet by mouth two times a day for 5 days. FAMILY HISTORY Problem Relation Age of Onset Hypertension Mother Diabetes Mother None Father Diabetes Maternal Grandmother Thyroid Maternal Grandmother Diabetes Maternal Grandfather Asthma Paternal Grandmother Diabetes Maternal Aunt Hypertension Maternal Aunt Social History Tobacco Use Smoking status: Every Day Current packs/day: 0.00 Types: Cigarettes Last attempt to quit: 05/14/2014 Years since quittin.9 Smokeless tobacco: Never Substance Use Topics Alcohol use: No Drug use: No Review of Systems Constitutional: Negative for chills and fever. HENT: Negative for congestion, ear pain and sore throat. Respiratory: Negative for cough and shortness of breath. Cardiovascular: Negative for chest pain. Gastrointestinal: Negative for diarrhea and vomiting. Skin: Positive for color change and rash. Objective BP 126/85 Pulse 109 Temp 37.2 ?C (98.9 ?F) Resp 18 Wt 96 kg (211 lb 10.3 oz) LMP 03/11/2024 (Within Days) SpO2 98% BMI 36.33 kg/m? Physical Exam Vitals and nursing note reviewed. Constitutional: General: She is not in acute distress. Appearance: Normal appearance. She is not toxic-appearing. Cardiovascular: Rate and Rhythm: Normal rate and regular rhythm. Pulmonary: Effort: Pulmonary effort is normal. Breath sounds: Normal breath sounds. Skin: General: Skin is warm and dry. Findings: Erythema and lesion present. Comments: 2 circular erythematous/purple raised lesions to dorsum of right hand between first and second digits. Clear drainage from one of the lesions noted. No purulence. No fluctuance or abscess. Small amount of surrounding erythema around the lesions. No rash anywhere else. Neurological: Mental Status: She is alert. Assessment and Plan ASSESSMENT/PLAN: 1. Skin infection - ICD9: 686.9, ICD10: L08.9 - Begin treatment with doxycycline. Recently exposed to MRSA. Patient's lisinopril interacts with Bactrim. Will cover with doxycycline. -Rx for mupirocin -Wound culture pending - No lymphangetic streaking, this was defined for patient to watch for and to seek medical care immediately if appears - Follow up for recheck in three days - ABSCESS AND WOUND CULTURE WITH GRAM STAIN Diagnosis and treatment plan were discussed and questions were answered to the patient's satisfaction. Pt acknowledged understanding of concepts and follow up plan. Specific signs and symptoms that would indicate the need for higher level of care w (more content not included)... Normal [facility] CNOVon 03-31-2024 CNOV Office Visit (UCWSTR ) GENET COBB ([id number]) 1995 F Date Time Provider Department 03/31/24 7:45 PM CLAYTON CHOUDHURY [facility] During your visit today, we recorded the following information about you: Temperature Pulse Respiration Blood pressure 98 degrees 100/minute 20/minute 118/80 Weight 92.5 kg Clayton Choudhury APRN.CNP 03/31/2024 7:55 PM Signed Subjective HPI Nontoxic female presents urgent care chief plaint cough and wheezing. Duration of symptoms 4 days. Associate symptoms listed above. Most prominent symptom today is cough. Has became predominant and productive. Denies any known sick contacts. Albuterol use this afternoon this did help. Denies any chest pain or hemoptysis or pleuritic pain. Denies chance of . Past medical history prescription medications allergies reviewed. .Patient presents with: Cough: DEL ANGEL, wheezing x 3 days PAST MEDICAL HISTORY Diagnosis Date Anxiety Elevated blood pressure 01/07/2011 Excessive anger Headache(784.0) 03/13/2011 History of drug use meth and marajuana IBS (irritable bowel syndrome) Left ventricular hypertrophy Overweight(278.02) 01/07/2011 PAST SURGICAL HISTORY Procedure Laterality Date COLONOSCOPY FLX DX W/COLLJ SPEC WHEN PFRMD 07/04/2015 Colonoscopy LAPS SURG CHOLECYSTECTOMY W/CHOLANGIOGRAPHY 10-07-13 ALLERGIES Amoxicillin and Inderal [Propranolol] MEDICATIONS atomoxetine (STRATTERA) 40 mg capsule take 1 capsule by mouth once daily in the morning lamoTRIgine (LAMICTAL) 200 mg tablet Take by mouth. metFORMIN (GLUCOPHAGE) 500 mg tablet Take by mouth. lisinopril (ZESTRIL, PRINIVIL) 10 mg tablet Take 1 tablet by mouth once daily. benzonatate (TESSALON PERLES) 100 mg capsule Take 1 capsule by mouth three times a day as needed for cough. (Patient not taking: Reported on 03/31/2024) predniSONE (DELTASONE) 10 mg tablet Take 4 tabs daily for 3 days, then 2 tabs daily for 3 days, then 1 tab daily for 3 days with food. (Patient not taking: Reported on 03/31/2024) levothyroxine (SYNTHROID) 25 mcg tablet (Patient not taking: Reported on 11/27/2023) busPIRone (BUSPAR) 10 mg tablet Take 1 tablet by mouth twice daily. (Patient not taking: Reported on 11/27/2023) Levonorgestrel-Ethinyl Estrad 0.1mg - 20mcg per tablet Take 1 tablet by mouth as directed. (Patient not taking: Reported on 11/27/2023) FAMILY HISTORY Problem Relation Age of Onset Hypertension Mother Diabetes Mother None Father Diabetes Maternal Grandmother Thyroid Maternal Grandmother Diabetes Maternal Grandfather Asthma Paternal Grandmother Diabetes Maternal Aunt Hypertension Maternal Aunt Social History Tobacco Use Smoking status: Every Day Current packs/day: 0.00 Types: Cigarettes Last attempt to quit: 05/14/2014 Years since quittin.8 Smokeless tobacco: Never Substance Use Topics Alcohol use: No Drug use: No BP 118/80 Pulse 100 Temp 36.7 ?C (98 ?F) Resp 20 Wt 92.5 kg (203 lb 14.8 oz) LMP 11/02/2023 (Within Days) SpO2 96% BMI 35.00 kg/m? Review of Systems Constitutional: Negative for chills, fever and malaise/fatigue. HENT: Positive for congestion. Negative for ear discharge, ear pain, sinus pain and sore throat. Eyes: Negative for blurred vision, pain, discharge and redness. Respiratory: Positive for cough, sputum production and wheezing. Negative for hemoptysis, shortness of breath and stridor. Cardiovascular: Negative for chest pain. Gastrointestinal: Negative for abdominal pain, diarrhea, nausea and vomiting. Musculoskeletal: Negative for myalgias. Skin: Negative for itching and rash. Neurological: Positive for headaches. Negative for dizziness. Objective Physical Exam Constitutional: General: She is not in acute distress. Appearance: She is not diaphoretic. HENT: Head: Normocephalic. Jaw: No trismus, tenderness, swelling or pain on movement. Nose: Congestion present. Mouth/Throat: Mouth: Mucous membranes are moist. Pharynx: Oropharynx is clear. Uvula midline. No pharyngeal swelling, oropharyngeal exudate, posterior oropharyngeal erythema or uvula swelling. Eyes: Conjunctiva/sclera: Conjunctivae normal. Pupils: Pupils are equal, round, and reactive to light. Cardiovascular: Rate and Rhythm: Normal rate and regular rhythm. Heart sounds: Normal heart sounds. Pulmonary: Effort: Pulmonary effort is normal. No tachypnea, accessory muscle usage or respiratory distress. Breath sounds: No stridor. Wheezing and rhonchi present. No rales. Abdominal: General: There is no distension. Palpations: Abdomen is soft. Tenderness: There is no abdominal tenderness. There is no guarding or rebound. Musculoskeletal: Cervical back: Normal range of motion and neck supple. No edema, erythema, rigidity or tenderness. No pain with movement. Normal range of motion. Lymphadenopathy: Cervical: (more content not included)... Normal [facility] CBC W/Diff, Automatedon 11-1 Absolute Lymph 4.21 X10 3/uL Normal 0.83-4.51 [facility] Comment on above: Performed By: #### L 500.4050, L501.5200, L506.1000, L100.0100, L501.9985 ####[facility] [address] [place], [address] Absolute Neut 5.0 X10 3/uL Normal 2.0-7.7 [facility] Comment on above: Performed By: #### L 500.4050, L501.5200, L506.1000, L100.0100, L501.9985 ####[facility] [address] [place], [address] Basophils/100 WBC (Bld) 0.6 % Normal 0-1 [facility] Comment on above: Performed By: #### L 500.4050, L501.5200, L506.1000, L100.0100, L501.9985 ####[facility] [address] [place], [address] Eosinophils/100 WBC (Bld) 2.5 % Normal 0-5 [facility] Comment on above: Performed By: #### L 500.4050, L501.5200, L506.1000, L100.0100, L501.9985 ####[facility] [address] [place], [address] Erythrocyte distribution width (RBC) [Ratio] 12.6 % Normal 11.6-14.6 [facility] Comment on above: Performed By: #### L 500.4050, L501.5200, L506.1000, L100.0100, L501.9985 ####[facility] [address] [place], [address] Hematocrit (Bld) [Volume fraction] 41.7 % Normal 37-47 [facility] Comment on above: Performed By: #### L 500.4050, L501.5200, L506.1000, L100.0100, L501.9985 ####[facility] [address] [place], [address] Hemoglobin (Bld) [Mass/Vol] 14.3 g/dL Normal 12.0-15.0 [facility] Comment on above: Performed By: #### L 500.4050, L501.5200, L506.1000, L100.0100, L501.9985 ####[facility] [address] [place], [address] IG% 0.200 Normal 0.0-0.9 [facility] Comment on above: Result Comment: IG% - Immature Granulocytes (promyelocytes, myelocytes and metamyelocytes) > 1% indicates that a LEFT SHIFT is Present. Performed By: #### L 500.4050, L501.5200, L506.1000, L100.0100, L501.9985 ####[facility] [address] [place], [address] Lymphocytes/100 WBC (Bld) 41.0 % Normal 19-41 [facility] Comment on above: Performed By: #### L 500.4050, L501.5200, L506.1000, L100.0100, L501.9985 ####[facility] [address] [place], [address] MCH (RBC) [Entitic mass] 30.2 pg Normal 27.0-32.0 [facility] Comment on above: Performed By: #### L 500.4050, L501.5200, L506.1000, L100.0100, L501.9985 ####[facility] [address] [place], [address] MCHC (RBC) [Mass/Vol] 34.3 g/dL Normal 32-36 [facility] Comment on above: Performed By: #### L 500.4050, L501.5200, L506.1000, L100.0100, L501.9985 ####[facility] [address] [place], [address] MCV (RBC) [Entitic vol] 88.0 fL Normal 81-99 [facility] Comment on above: Performed By: #### L 500.4050, L501.5200, L506.1000, L100.0100, L501.9985 ####[facility] [address] [place], [address] Monocytes/100 WBC (Bld) 7.0 % Normal 0-10 [facility] Comment on above: Performed By: #### L 500.4050, L501.5200, L506.1000, L100.0100, L501.9985 ####[facility] [address] [place], [address] Neutrophils/100 WBC (Bld) 48.7 % Normal 47-70 [facility] Comment on above: Performed By: #### L 500.4050, L501.5200, L506.1000, L100.0100, L501.9985 ####[facility] [address] [place], [address] Nucleated RBC (Bld) [#/Vol] 0 10*3/uL Normal 0-5 [facility] Comment on above: Performed By: #### L 500.4050, L501.5200, L506.1000, L100.0100, L501.9985 ####[facility] [address] [place], [address] Platelet mean volume (Bld) [Entitic vol] 10.0 fL Normal 6.2-12.0 [facility] Comment on above: Performed By: #### L 500.4050, L501.5200, L506.1000, L100.0100, L501.9985 ####[facility] [address] [place], [address] Platelets (Bld) [#/Vol] 413 10*3/uL Normal 150-450 [facility] Comment on above: Performed By: #### L 500.4050, L501.5200, L506.1000, L100.0100, L501.9985 ####[facility] [address] [place], [address] RBC (Bld) [#/Vol] 4.74 10*6/uL Normal 4.2-5.4 [facility] Comment on above: Performed By: #### L 500.4050, L501.5200, L506.1000, L100.0100, L501.9985 ####[facility] [address] [place], [address] RDW SD 40.6 fl Normal 35.1-43.9 [facility] Comment on above: Performed By: #### L 500.4050, L501.5200, L506.1000, L100.0100, L501.9985 ####[facility] [address] [place], [address] WBC (Bld) [#/Vol] 10.3 10*3/uL Normal 4.4-11.0 [facility] Comment on above: Performed By: #### L 500.4050, L501.5200, L506.1000, L100.0100, L501.9985 ####[facility] [address] [place], [address] Comprehensive Metabolic Prof [facility] 02-22-2024 Albumin [Mass/Vol] 3.8 g/dL Normal 3.2-5.0 [facility] Comment on above: Performed By: #### L 500.4050, L501.5200, L506.1000, L100.0100, L501.9985 ####[facility] [address] [place], [address] Albumin/Globulin [Mass ratio] 0.9 {ratio} Normal 0.9-2.4 [facility] Comment on above: Performed By: #### L 500.4050, L501.5200, L506.1000, L100.0100, L501.9985 ####[facility] [address] [place], [address] ALK P 66 U/L Normal 45-117 [facility] Comment on above: Performed By: #### L 500.4050, L501.5200, L506.1000, L100.0100, L501.9985 ####[facility] [address] [place], [address] ALT [Catalytic activity/Vol] 24 U/L Normal 13-56 [facility] Comment on above: Performed By: #### L 500.4050, L501.5200, L506.1000, L100.0100, L501.9985 ####[facility] [address] [place], [address] AST [Catalytic activity/Vol] 11 U/L Low 15-37 [facility] Comment on above: Performed By: #### L 500.4050, L501.5200, L506.1000, L100.0100, L501.9985 ####[facility] [address] [place], [address] Bilirubin [Mass/Vol] 0.50 mg/dL Normal 0.20-1.00 [facility] Comment on above: Result Comment: For patients on eltrombopag therapy, use of Dimension [place] TBIL is not recommended. Performed By: #### L 500.4050, L501.5200, L506.1000, L100.0100, L501.9985 ####[facility] [address] [place], [address] BUN/CRE 13.4 RATIO Normal 10-20 [facility] Comment on above: Performed By: #### L 500.4050, L501.5200, L506.1000, L100.0100, L501.9985 ####[facility] [address] [place], [address] CA,Total 9.8 mg/dL Normal 8.5-10.1 [facility] Comment on above: Performed By: #### L 500.4050, L501.5200, L506.1000, L100.0100, L501.9985 ####[facility] [address] [place], [address] Chloride [Moles/Vol] 103 mmol/L Normal 98-107 [facility] Comment on above: Performed By: #### L 500.4050, L501.5200, L506.1000, L100.0100, L501.9985 ####[facility] [address] [place], [address] CO2 [Moles/Vol] 25.0 mmol/L Normal 21.0-32.0 [facility] Comment on above: Performed By: #### L 500.4050, L501.5200, L506.1000, L100.0100, L501.9985 ####[facility] [address] [place], [address] Creatinine [Mass/Vol] 0.97 mg/dL Normal 0.55-1.02 [facility] Comment on above: Result Comment: The validity of the calculated GFR GFRAA in patients over 70 years has not been determined. Clinical correlation is essential. Performed By: #### L 500.4050, L501.5200, L506.1000, L100.0100, L501.9985 ####[facility] [address] [place], [address] EST GFR - AA 88 mL/min Normal >60 [facility] Comment on above: Result Comment: Afri can Prydeinig GFR Calc Performed By: #### L 500.4050, L501.5200, L506.1000, L100.0100, L501.9985 ####[facility] [address] [place], [address] GAP 9 Normal 5-15 [facility] Comment on above: Performed By: #### L 500.4050, L501.5200, L506.1000, L100.0100, L501.9985 ####[facility] [address] [place], [address] GFR/1.73 sq M.predicted among non-blacks MDRD (S/P/Bld) [Vol rate/Area] 72 mL/min/{1.73_m2} Normal >60 [facility] Comment on above: Result Comment: Non- GFR Calc Performed By: #### L 500.4050, L501.5200, L506.1000, L100.0100, L501.9985 ####[facility] [address] [place], [address] Globulin (S) [Mass/Vol] 4.3 g/dL High 2.2-4.2 [facility] Comment on above: Performed By: #### L 500.4050, L501.5200, L506.1000, L100.0100, L501.9985 ####[facility] [address] [place], [address] Glucose [Mass/Vol] 95 mg/dL Normal 74-106 [facility] Comment on above: Performed By: #### L 500.4050, L501.5200, L506.1000, L100.0100, L501.9985 ####[facility] [address] [place], [address] Potassium [Moles/Vol] 3.7 mmol/L Normal 3.5-5.1 [facility] Comment on above: Performed By: #### L 500.4050, L501.5200, L506.1000, L100.0100, L501.9985 ####[facility] [address] [place], [address] Sodium [Moles/Vol] 136 mmol/L Normal 136-145 [facility] Comment on above: Performed By: #### L 500.4050, L501.5200, L506.1000, L100.0100, L501.9985 ####[facility] [address] [place], [address] T PROT 8.1 g/dL Normal 6.4-8.2 [facility] Comment on above: Performed By: #### L 500.4050, L501.5200, L506.1000, L100.0100, L501.9985 ####[facility] [address] [place], [address] Urea nitrogen [Mass/Vol] 13 mg/dL Normal 7-18 [facility] Comment on above: Performed By: #### L 500.4050, L501.5200, L506.1000, L100.0100, L501.9985 ####[facility] [address] [place], [address] Hemoglobin A1con 02-22-2024 HbA1c (Bld) [Mass fraction] 5.5 % Normal 3.8-5.6 [facility] Comment on above: Result Comment: Norm al < 5.7 % Prediabetic 5.7 - 6.4 % Diabetic >or= 6.5 % Please note range changes. Performed By: #### L 500.4050, L501.5200, L506.1000, L100.0100, L501.9985 ####[facility] [address] [place], [address] Internal Medicine Office Vis lizette 02-22-2024 Internal Medicine Office Visit [facility] [address] [place] [address] [address] [place] [address] OFFICE VISIT Date of Service: 02/22/24 MR#: [id number] Acct: [id number] Name: GENET COBB Rep #: [id number] : 1995 Provider: Dr. Skyler dumont MD Age/Sex: 29/F Location: [facility] Status: Signed Intake Vital Signs 01/01/24 15:19 02/22/24 14:58 Height 5 ft 3 in 5 ft 3 in Weight: 196 lb BMI 34.7 BP 122/74 H Blood Pressure Location Lt brachial Position Sitting Respiration 16 Pulse 94 Pulse Source Monitor Temp 98.4 F Temp Source Temporal Pulse Oximetry (%) 98 Oxygen Delivery Method room air Intake Visit Reasons: LIVER CONCERNS Chief Complaint: Follow-up chronic conditions. 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 Accompanied by: Self Is patient in pain?: No Allergies amoxicillin (Amoxicillin) Allergy (Verified 02/22/24 14:52) Hives propranolol HCl (From Inderal LA) Allergy (Verified 02/22/24 14:52) Hives Medications ???Medication ???Instructions ???Recorded ???Confirmed ???Type lamotrigine 200 mg tablet 150 mg PO BID 12/05/20 02/22/24 History (Lamictal) haloperidol 5 mg tablet 5 mg PO PRN PRN Anxiety 04/09/22 02/22/24 History lansoprazole 30 mg capsule,delayed 30 mg PO DAILY #90 caps 10/03/22 02/22/24 Rx release (Prevacid) atomoxetine 40 mg capsule 40 mg PO QAM 06/26/23 02/22/24 History hydrocortisone 1 %-pramoxine 1 % 1 applic DE QHS PRN hemorrhoids 09/04/23 02/22/24 Rx rectal foam (Proctofoam HC) #10 grams polyethylene glycol 3350 17 17 g PO DAILY #119 grams 09/15/23 02/22/24 Rx gram/dose oral powder lactulose 10 gram/15 mL oral 10 g (15 mL) PO BID PRN 09/30/23 02/22/24 Rx solution constipation #3,000 mL lisinopril 10 mg tablet 10 mg PO DAILY #90 tabs 01/01/24 02/22/24 Rx inulin 2 gram chewable tablet g PO 02/22/24 02/22/24 History (Fiber Gummies) metformin 500 mg tablet 500 mg PO ONCE 02/22/24 History PFSH Medical History (Updated 02/22/24 @ 16:[address] Skyler Rodriges MD) MUNOZ (nonalcoholic steatohepatitis) Encounter for vitamin deficiency screening Atypical chest pain Chronic constipation Subclinical hypothyroidism Hypothyroidism GERD (gastroesophageal reflux disease) Wears glasses Depression Marijuana use Diabetes History of ulceration Gastric reflux Smoker Shortness of breath on exertion History of echocardiogram History of pneumonia Chronic vomiting Gastric ulcer Type 2 diabetes mellitus Ulcer Diabetes Tobacco abuse Morbid obesity Hypertension Anxiety Surgical History Hx of cholecystectomy Hx of colonoscopy History of cholecystectomy Family History Unknown Diabetes Multiple sclerosis cousin Mother Diabetes Hypertension Grandmother Diabetes Hypertension Aunt Multiple sclerosis Social History Smoking Status: Current every day smoker tobacco type: cigarettes and e-cigarettes Tobacco: How many years used: 7 alcohol intake: never substance use type: former substance user Date of last use: 04/16/2020, marijuana and methamphetamine caffeine: Yes what type of physical activity do you participate in: walking seatbelt use: always do you feel safe at home: Yes additional social history: unemployed HPI HPI Chief Complaint: Follow-up chronic conditions. Details: GENET COBB, is a 29 F who presents to the office today for follow-up. She also has some concerns. She reports increased irritability and anger outburst which have been ongoing since summer. 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 She also expresses frustration about insufficient help. She states that her grandmother should be placed in a facility in 2 weeks and she is hopeful that this should help. Follows up with psychiatry, has not had any medication changes. History of fatty liver, she is concerned about her liver function. Currently at a BMI of 34.7. Last lab in September with stable liver function. Other chronic medical conditions are stable ROS Const Constitutional: No body ache, chills, excessive sweating, fatigue, fever(s), frequent falls, headache(s), snoring, weakness or change in appetite Eyes Eyes: No blurry vision, change in vision, dry eyes, bulging eyes, floaters, eye pain or Light sensitivity ENT ENT: No abnormal hearing, ear or mastoid pain, tinnitus, nasal congestion, headache(s), neck pain or sore throat Resp Respiratory: No cough, excessive phlegm production, pain on inspiration, shortness of breath, snoring or wheezing Cardio Cardiology: No chest pain at rest, chest pain with exertion, excessive sweating, dyspnea on exertion, lightheadedness, orthopn (more content not included)... Normal [facility] Magnesiumon 02-22-2024 Magnesium [Mass/Vol] 1.9 mg/dL Normal 1.6-2.6 [facility] Comment on above: Performed By: #### L 500.4050, L501.5200, L506.1000, L100.0100, L501.9985 ####[facility] [id number] [place], [place], [id number] Vitamin D,25 Hydroxyon 02-21 Vitamin D 25-OH 9.8 ng/mL Normal [facility] Comment on above: Result Comment: Lou min D 25(OH) Status Range Deficiency <20 ng/mL (50nmol/L) Insufficiency 20 - 30 ng/mL (50 - 75 nmol/L) Sufficiency 30 - 100 ng/mL (75 - 250 nmol/L) Toxicity >100 ng/mL (>250 nmol/L) Performed By: #### L 500.4050, L501.5200, L506.1000, L100.0100, L501.9985 ####[facility] [id number] [place], [place], [id number] CNOVon 01-28-2024 CNOV Office Visit ([facility] ) GENET COBB ([id number]) 1995 F Date Time Provider Department 01/28/24 9:45 AM HARRIETT CASTILLO [facility] During your visit today, we recorded the following information about you: Temperature Pulse Respiration Blood pressure 98.8 degrees 76/minute 18/minute 122/85 Weight 88.6 kg Harriett Castillo APRN.FABRIC 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 01/28/2024 11:35 AM Signed This note was created using Crunchfishriter. Subjective Genet Cobb is a 28 year old female. 28 year old female with PMH HTN, DM (metformin), IBS, anxiety presents for illness. Acute onset 2 days ago +runny nose + cough +chest congestion +body aches +chills +fever Denies CP Denies dyspnea Denies SOB Vapes Denies that she has had difficulty with vaping. The history is provided by the patient. Cough This is a new problem. The current episode started 2 days ago. The problem occurs constantly. The cough is Productive of sputum. The maximum temperature recorded prior to her arrival was 100 to 100.9 F. Associated symptoms include chills, sweats, headaches, rhinorrhea, myalgias, shortness of breath and wheezing. Pertinent negatives include no chest pain, no weight loss and no eye redness. Treatments tried: Benadryl. The treatment provided no relief. She is a smoker. Her past medical history does not include bronchitis, pneumonia, bronchiectasis, COPD, emphysema or asthma. PAST MEDICAL HISTORY Diagnosis Date Anxiety Elevated blood pressure 01/07/2011 Excessive anger Headache(784.0) 03/13/2011 History of drug use meth and marajuana IBS (irritable bowel syndrome) Left ventricular hypertrophy Overweight(278.02) 01/07/2011 PAST SURGICAL HISTORY Procedure Laterality Date COLONOSCOPY FLX DX W/COLLJ SPEC WHEN PFRMD 07/04/2015 Colonoscopy LAPS SURG CHOLECYSTECTOMY W/CHOLANGIOGRAPHY 10-07-13 ALLERGIES Amoxicillin and Inderal [Propranolol] MEDICATIONS atomoxetine (STRATTERA) 40 mg capsule take 1 capsule by mouth once daily in the morning lamoTRIgine (LAMICTAL) 200 mg tablet Take by mouth. metFORMIN (GLUCOPHAGE) 500 mg tablet Take by mouth. lisinopril (ZESTRIL, PRINIVIL) 10 mg tablet Take 1 tablet by mouth once daily. benzonatate (TESSALON PERLES) 100 mg capsule Take 1 capsule by mouth three times a day as needed for cough. predniSONE (DELTASONE) 10 mg tablet Take 4 tabs daily for 3 days, then 2 tabs daily for 3 days, then 1 tab daily for 3 days with food. levothyroxine (SYNTHROID) 25 mcg tablet (Patient not taking: Reported on 11/27/2023) busPIRone (BUSPAR) 10 mg tablet Take 1 tablet by mouth twice daily. (Patient not taking: Reported on 11/27/2023) Levonorgestrel-Ethinyl Estrad 0.1mg - 20mcg per tablet Take 1 tablet by mouth as directed. (Patient not taking: Reported on 11/27/2023) FAMILY HISTORY Problem Relation Age of Onset Hypertension Mother Diabetes Mother None Father Diabetes Maternal Grandmother Thyroid Maternal Grandmother Diabetes Maternal Grandfather Asthma Paternal Grandmother Diabetes Maternal Aunt Hypertension Maternal Aunt Social History Tobacco Use Smoking status: Every Day Current packs/day: 0.00 Types: Cigarettes Last attempt to quit: 05/14/2014 Years since quittin.7 Smokeless tobacco: Never Substance Use Topics Alcohol use: No Drug use: No Review of Systems Constitutional: Positive for chills and fatigue. Negative for weight loss. HENT: Positive for congestion and rhinorrhea. Eyes: Negative for pain, discharge, redness and itching. Respiratory: Positive for cough, shortness of breath and wheezing. Cardiovascular: Negative for chest pain. Gastrointestinal: Negative for abdominal pain, diarrhea, nausea and vomiting. Musculoskeletal: Positive for myalgias. Negative for arthralgias and back pain. Skin: Negative for color change and pallor. Allergic/Immunologic: Negative for environmental allergies, food allergies and immunocompromised state. Neurological: Positive for headaches. Hematological: Negative for adenopathy. Does not bruise/bleed easily. Psychiatric/Behavioral : Negative for agitation and behavioral problems. Objective BP 122/85 Pulse 76 Temp 37.1 ?C (98.8 ?F) Resp 18 Wt 88.6 kg (195 lb 5.2 oz) LMP 11/02/2023 (Within Days) SpO2 96% BMI 33.53 kg/m? Physical Exam Vitals and nursing note reviewed. Constitutional: General: She is not in acute distress. Appearance: Normal appearance. She is normal weight. She is not ill-appearing, toxic-appearing or diaphoretic. HENT: Head: Normocephalic and atraumatic. Right Ear: Ear canal and external ear normal. Left Ear: Ear canal and external ear normal. Nose: Congestion present. No rhinorrhea. Mouth/Throat: Mouth: Mucous membranes are moist. Pharynx: Posterior oropharyngeal erythema present. No oropharyngeal exudate. Eyes: General: Right eye: No discharge. Left eye: No discharg (more content not included)... Normal [facility] 01-28-2024 CNPN Telephone ([facility]) GENET COBB ([id number]) 1995 F Date Time Provider Department 01/28/24 FINESSE JAVED [facility] During your visit today, we recorded the following information about you: Finesse Javed PA 01/28/2024 6:44 PM Signed Negative COVID flu RSV Pedro Storm MA 01/29/2024 7:50 AM Signed Patient notified of results. Pedro Storm MA Allergies As of Date: 01/28/2024 Noted Allergy Reaction AMOXICILLIN 01/17/2008 4 - Hives INDERAL (PROPRANOLOL) 03/13/2011 4 - Hives Date Reviewed: 01/28/2024 Reviewed by: Pedro Storm MA - Fully Assessed Reason for Visit: Results [95] Prescriptions as of 01/29/2024 - benzonatate (TESSALON PERLES) 100 mg capsule Take 1 capsule by mouth three times a day as needed for cough. - predniSONE (DELTASONE) 10 mg tablet Take 4 tabs daily for 3 days, then 2 tabs daily for 3 days, then 1 tab daily for 3 days with food. - atomoxetine (STRATTERA) 40 mg capsule take 1 capsule by mouth once daily in the morning - levothyroxine (SYNTHROID) 25 mcg tablet - lamoTRIgine (LAMICTAL) 200 mg tablet Take by mouth. - metFORMIN (GLUCOPHAGE) 500 mg tablet Take by mouth. - lisinopril (ZESTRIL, PRINIVIL) 10 mg tablet Take 1 tablet by mouth once daily. - busPIRone (BUSPAR) 10 mg tablet Take 1 tablet by mouth twice daily. - Levonorgestrel-Ethinyl Estrad 0.1mg - 20mcg per tablet Take 1 tablet by mouth as directed. Problem List As Of Date 01/28/2024 Noted Resolved Elevated blood pressure [HTP3187] 01/07/2011 08/21/2011 Obesity (BMI 35.0-39.9 without comorbidity) [E6*01/07/2011 Headache [R51] 03/13/2011 Family history of hypertension [Z82.49] 07/23/2011 Hypertension [I10] 08/21/2011 Left ventricular hypertrophy [I51.7] 07/22/2012 Metabolic syndrome [E88.810] 07/22/2012 Dyslipidemia (high LDL; low HDL) [E78.5] 07/22/2012 Prediabetes [R73.03] 06/28/2018 Encounter Status:Closed by PEDRO STORM on 01/29/24 Normal [facility] COVID AND INFLUENZA A/B AND RSV PCR, ROUTINEon 01-28-2024 SARS-CoV-2 (COVID-19) RNA LAWSON+probe Ql (Unsp spec) SARS-COV-2 (AGENT OF COVID-19) RNA: Not detected INFLUENZA A RNA: Not detected INFLUENZA B RNA: Not detected RESPIRATORY SYNCYTIAL VIRUS (RSV) RNA: Not detected Normal [facility] Comment on above: Performed By: #### C VFLRS ####[facility] LABCLIA [id number] [place] [address] [place] XR CHEST 2V FRONTAL/LATon XR CHEST 2V FRONTAL/LAT * * *Final Repor t* * * DATE OF EXAM: Jan 28 2024 10:27AM WOX [id number] - XR CHEST 2V FRONTAL/LAT / PROCEDURE REASON: multiple diagnoses * * * * Physician Interpretation * * * * EXAMINATION: CHEST RADIOGRAPH (2 VIEW FRONTAL and LATERAL) CLINICAL HISTORY: URI, acute Acute cough MQ: XC2_6 EXAM DATE/TIME: 01/28/2024 10:27 AM COMPARISON: Chest x-ray on 12/23/2018 RESULT: Lines, tubes, and devices: None. Lungs and pleura: No consolidation. No lung mass. No pleural effusion. No pneumothorax. Cardiomediastinal silhouette: Normal cardiomediastinal silhouette. Bones and soft tissues: Unremarkable. IMPRESSION: No acute radiographic abnormality. Battery Charger: PSCB Transcribe Date/Time: Jan 28 2024 10:32A Dictated by : JOSIANE CENTENO MD This examination was interpreted and the report reviewed and electronically signed by: JOSIANE CENTENO MD on Jan 28 2024 10:33AM EST [id number] Normal [facility] XR Chest PA and Lateralon IMPRESSION: No acute radiographic abnormality. Battery Charger: [facility] Transcribe Date/Time: Jan 28 2024 10:32A Dictated by : JOSIANE CENTENO MD This examination was interpreted and the report reviewed and electronically signed by: JOSIANE CENTENO MD on Jan 28 2024 10:33AM EST DIVISION OF RADIOLOGY * * *Final Report* * * DATE OF EXAM: Jan 28 2024 10:27AM WOX [id number] - XR CHEST 2V FRONTAL/LAT / PROCEDURE REASON: multiple diagnoses * * * * Physician Interpretation * * * * EXAMINATION: CHEST RADIOGRAPH (2 VIEW FRONTAL & LATERAL) CLINICAL HISTORY: URI, acute Acute cough MQ: XC2_6 EXAM DATE/TIME: 01/28/2024 10:27 AM COMPARISON: Chest x-ray on 12/23/2018 RESULT: Lines, tubes, and devices: None. Lungs and pleura: No consolidation. No lung mass. No pleural effusion. No pneumothorax. Cardiomediastinal silhouette: Normal cardiomediastinal silhouette. Bones and soft tissues: Unremarkable. DIVISION OF RADIOLOGY Provider, [facility] - 01/28/2024 * * *Final Report* * * DATE OF EXAM: Jan 28 2024 10:27AM WOX [id number] - XR CHEST 2V FRONTAL/LAT / PROCEDURE REASON: multiple diagnoses * * * * Physician Interpretation * * * * EXAMINATION: CHEST RADIOGRAPH (2 VIEW FRONTAL & LATERAL) CLINICAL HISTORY: URI, acute Acute cough MQ: XC2_6 EXAM DATE/TIME: 01/28/2024 10:27 AM COMPARISON: Chest x-ray on 12/23/2018 RESULT: Lines, tubes, and devices: None. Lungs and pleura: No consolidation. No lung mass. No pleural effusion. No pneumothorax. Cardiomediastinal silhouette: Normal cardiomediastinal silhouette. Bones and soft tissues: Unremarkable. IMPRESSION IMPRESSION: No acute radiographic abnormality. Battery Charger: PSCB Transcribe Date/Time: Jan 28 2024 10:32A Dictated by : JOSIANE ECNTENO MD This examination was interpreted and the report reviewed and electronically signed by: JOSIANE CENTENO MD on Jan 28 2024 10:33AM EST [facility] Radiology Study observation (narrative) Yefri dial [facility] XR Chest PA and LateralOrder ed By: [facility] Provider on 01-28-2024 [facility] CNOVon 01-25-2024 CNOV Office Visit ([facility] ) GENET COBB ([id number]) 1995 F Date Time Provider Department 01/25/24 1:15 PM HARRIETT CASTILLO [facility] During your visit today, we recorded the following information about you: Temperature Pulse Respiration Blood pressure 98.3 degrees 88/minute 16/minute 110/66 Weight 89.3 kg Harriett Castillo 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 Subjective Genet Pryorer is a 28 year old female. 28 year old female with PMH HTN, DM presents for complaints of musculoskeletal complaints Acute onset 2 days ago Right hand and right wrist. States was annoyed when I woke up And states she open handed was hitting the window ledge +aching pain +pain with use and touching Denies head injury Denies neck or back pain Denies prior history of right hand surgery or fractures. Right hand dominant The history is provided by the patient. No electromechanical equipment assembler was used. Wrist Pain This is a new problem. Episode onset: 2 days ago. The problem occurs constantly. The problem has been unchanged. Pertinent negatives include no abdominal pain, anorexia, arthralgias, change in bowel habit, chest pain, chills, congestion, coughing, diaphoresis, fatigue, fever, headaches, joint swelling, myalgias, nausea, neck pain, numbness, rash, sore throat, swollen glands, urinary symptoms, vertigo, visual change, vomiting or weakness. Exacerbated by: touching, using and palpation. She has tried nothing for the symptoms. The treatment provided no relief. PAST MEDICAL HISTORY Diagnosis Date Anxiety Elevated blood pressure 01/07/2011 Excessive anger Headache(784.0) 03/13/2011 History of drug use meth and marajuana IBS (irritable bowel syndrome) Left ventricular hypertrophy Overweight(278.02) 01/07/2011 PAST SURGICAL HISTORY Procedure Laterality Date COLONOSCOPY FLX DX W/COLLJ SPEC WHEN PFRMD 07/04/2015 Colonoscopy LAPS SURG CHOLECYSTECTOMY W/CHOLANGIOGRAPHY 10-07-13 ALLERGIES Amoxicillin and Inderal [Propranolol] MEDICATIONS atomoxetine (STRATTERA) 40 mg capsule take 1 capsule by mouth once daily in the morning lamoTRIgine (LAMICTAL) 200 mg tablet Take by mouth. metFORMIN (GLUCOPHAGE) 500 mg tablet Take by mouth. lisinopril (ZESTRIL, PRINIVIL) 10 mg tablet Take 1 tablet by mouth once daily. levothyroxine (SYNTHROID) 25 mcg tablet (Patient not taking: Reported on 11/27/2023) busPIRone (BUSPAR) 10 mg tablet Take 1 tablet by mouth twice daily. (Patient not taking: Reported on 11/27/2023) Levonorgestrel-Ethinyl Estrad 0.1mg - 20mcg per tablet Take 1 tablet by mouth as directed. (Patient not taking: Reported on 11/27/2023) FAMILY HISTORY Problem Relation Age of Onset Hypertension Mother Diabetes Mother None Father Diabetes Maternal Grandmother Thyroid Maternal Grandmother Diabetes Maternal Grandfather Asthma Paternal Grandmother Diabetes Maternal Aunt Hypertension Maternal Aunt Social History Tobacco Use Smoking status: Every Day Current packs/day: 0.00 Types: Cigarettes Last attempt to quit: 05/14/2014 Years since quittin.7 Smokeless tobacco: Never Substance Use Topics Alcohol use: No Drug use: No Review of Systems Constitutional: Negative for chills, diaphoresis, fatigue and fever. HENT: Negative for congestion and sore throat. Eyes: Negative for pain, discharge, redness and itching. Respiratory: Negative for apnea, cough, choking and chest tightness. Cardiovascular: Negative for chest pain. Gastrointestinal: Negative for abdominal pain, anorexia, change in bowel habit, nausea and vomiting. Musculoskeletal: Negative for arthralgias, joint swelling, myalgias and neck pain. Right wrist AND right hand Skin: Negative for rash. Allergic/Immunologic: Negative for environmental allergies, food allergies and immunocompromised state. Neurological: Negative for dizziness, vertigo, facial asymmetry, weakness, numbness and headaches. Hematological: Negative for adenopathy. Does not bruise/bleed easily. Psychiatric/Behavioral : Negative for agitation and behavioral problems. Objective BP 110/66 Pulse 88 Temp 36.8 ?C (98.3 ?F) Resp 16 Wt 89.3 kg (196 lb 13.9 oz) LMP 11/02/2023 (Within Days) SpO2 97% BMI 33.79 kg/m? Physical Exam Vitals and nursing note reviewed. Constitutional: General: She is not in acute distress. Appearance: Normal appearance. She is normal weight. She is not ill-appearing, toxic-appearing or diaphoretic. HENT: Head: Normocephalic and atraumatic. Right Ear: Ear canal and external ear normal. Left Ear: Ear canal and external ear normal. Nose: No congestion or rhinorrhea. Mouth/Throat: Mouth: Mucous membranes are moist. Pharynx: No oropharyngeal exudate or posterior oropharyngeal erythema. Eyes: General: Right eye: No discharge. Left eye: No discharge. Extraoc (more content not included)... Normal [facility] No Panel Informationon 01-24 Radiology Study observation (narrative) [facility] XR FOREARM 2V AP/LAT RTon XR FOREARM 2V AP/LAT RT * * *Final Repor t* * * DATE OF EXAM: Jan 25 2024 1:32PM WOX [id number] - XR FOREARM 2V AP/LAT RT / PROCEDURE REASON: Wrist pain, right * * * * Physician Interpretation * * * * EXAMINATION: XR FOREARM 2V AP/LAT RT PATIENT/TECHNOLOGIST PROVIDED HISTORY: punched a window sill Thursday, pain in 4-5th MC and fingers and ulnar side of wrist CLINICAL INFORMATION: 28 years old Female with Wrist pain, right TECHNIQUE: XR FOREARM 2V AP/LAT RT Laterality: RIGHT Number of different views (projections): 2 COMPARISON: None RESULT: No fracture. Joint spaces are maintained. IMPRESSION: No acute osseous abnormality. Battery Charger: [facility] Transcribe Date/Time: Jan 25 2024 1:47P Dictated by : ZA KIMBALL DO This examination was interpreted and the report reviewed and electronically signed by: ZA KIMBALL DO on Jan 25 2024 1:50PM EST [id number] [facility] XR HAND 3V PA/LAT/OBL RTon 1 XR HAND 3V PA/LAT/OBL RT * * *Final Report* * * DATE OF EXAM: Jan 25 2024 1:32PM WOX [id number] - XR HAND 3V PA/LAT/OBL RT / PROCEDURE REASON: Hand pain, right * * * * Physician Interpretation * * * * EXAM TITLE: XR HAND 3V PA/LAT/OBL RT EXAM DATE/TIME: 01/25/2024 1:32 PM COMPARISON: X-ray dated on 01/22/2020 CLINICAL INDICATION/HISTORY: Injury. Pain in the fourth and fifth metacarpal areas TECHNIQUE: PA, lateral and oblique views of the right hand are presented. FINDINGS: No acute fractures or subluxations are noted. Deformity of the fifth metacarpal bone is noted, unchanged. The joint spaces are well preserved. The mineralization of the bones is normal. There is no significant soft tissue swelling. IMPRESSION: No acute radiographic abnormalities seen in the right hand. Battery Charger: Level Transcribe Date/Time: Jan 25 2024 1:45P Dictated by : JOSIANE CENTENO MD This examination was interpreted and the report reviewed and electronically signed by: JOSIANE CENTENO MD on Jan 25 2024 1:48PM EST [id number] [facility] XR Hand - right PA and Later al and Obliqueon 01-25-2024 IMPRESSION: No acute radiographic abnormalities seen in the right hand. Battery Charger: [facility] Transcribe Date/Time: Jan 25 2024 1:45P Dictated by : JOSIANE CENTENO MD This examination was interpreted and the report reviewed and electronically signed by: JOSIANE CENTENO MD on Jan 25 2024 1:48PM [facility] DIVISION OF RADIOLOGY * * *Final Report* * * DATE OF EXAM: Jan 25 2024 1:32PM WOX [id number] - XR HAND 3V PA/LAT/OBL RT / PROCEDURE REASON: Hand pain, right * * * * Physician Interpretation * * * * EXAM TITLE: XR HAND 3V PA/LAT/OBL RT EXAM DATE/TIME: 01/25/2024 1:32 PM COMPARISON: X-ray dated on 01/22/2020 CLINICAL INDICATION/HISTORY: Injury. Pain in the fourth and fifth metacarpal areas TECHNIQUE: PA, lateral and oblique views of the right hand are presented. FINDINGS: No acute fractures or subluxations are noted. Deformity of the fifth metacarpal bone is noted, unchanged. The joint spaces are well preserved. The mineralization of the bones is normal. There is no significant soft tissue swelling. DIVISION OF RADIOLOGY Provider, [facility] - 01/25/2024 * * *Final Report* * * DATE OF EXAM: Jan 25 2024 1:32PM WOX [id number] - XR HAND 3V PA/LAT/OBL RT / PROCEDURE REASON: Hand pain, right * * * * Physician Interpretation * * * * EXAM TITLE: XR HAND 3V PA/LAT/OBL RT EXAM DATE/TIME: 01/25/2024 1:32 PM COMPARISON: X-ray dated on 01/22/2020 CLINICAL INDICATION/HISTORY: Injury. Pain in the fourth and fifth metacarpal areas TECHNIQUE: PA, lateral and oblique views of the right hand are presented. FINDINGS: No acute fractures or subluxations are noted. Deformity of the fifth metacarpal bone is noted, unchanged. The joint spaces are well preserved. The mineralization of the bones is normal. There is no significant soft tissue swelling. IMPRESSION IMPRESSION: No acute radiographic abnormalities seen in the right hand. Battery Charger: [facility] Transcribe Date/Time: Jan 25 2024 1:45P Dictated by : JOSIANE CENTENO MD This examination was interpreted and the report reviewed and electronically signed by: JOSIANE CENTENO MD on Jan 25 2024 1:48PM EST [facility] XR Radius and Ulna - right A P and Lateralon 01-25-2024 IMPRESSION: No acute osseous abnormality. Battery Charger: SRUTHI Transcribe Date/Time: Jan 25 2024 1:47P Dictated by : ZA KIMBALL DO This examination was interpreted and the report reviewed and electronically signed by: ZA KIMBALL DO on Jan 25 2024 1:50PM EST DIVISION OF RADIOLOGY * * *Final Report* * * DATE OF EXAM: Jan 25 2024 1:32PM WOX [id number] - XR FOREARM 2V AP/LAT RT / PROCEDURE REASON: Wrist pain, right * * * * Physician Interpretation * * * * EXAMINATION: XR FOREARM 2V AP/LAT RT PATIENT/TECHNOLOGIST PROVIDED HISTORY: punched a window sill Thursday, pain in 4-5th MC and fingers and ulnar side of wrist CLINICAL INFORMATION: 28 years old Female with Wrist pain, right TECHNIQUE: XR FOREARM 2V AP/LAT RT Laterality: RIGHT Number of different views (projections): 2 COMPARISON: None RESULT: No fracture. Joint spaces are maintained. DIVISION OF RADIOLOGY Provider, [facility] - 01/25/2024 * * *Final Report* * * DATE OF EXAM: Jan 25 2024 1:32PM WOX [id number] - XR FOREARM 2V AP/LAT RT / PROCEDURE REASON: Wrist pain, right * * * * Physician Interpretation * * * * EXAMINATION: XR FOREARM 2V AP/LAT RT PATIENT/TECHNOLOGIST PROVIDED HISTORY: punched a window sill Thursday, pain in 4-5th MC and fingers and ulnar side of wrist CLINICAL INFORMATION: 28 years old Female with Wrist pain, right TECHNIQUE: XR FOREARM 2V AP/LAT RT Laterality: RIGHT Number of different views (projections): 2 COMPARISON: None RESULT: No fracture. Joint spaces are maintained. IMPRESSION IMPRESSION: No acute osseous abnormality. Battery Charger: P[facility]B Transcribe Date/Time: Jan 25 2024 1:47P Dictated by : ZA KIMBALL DO This examination was interpreted and the report reviewed and electronically signed by: ZA KIMBALL DO on Jan 25 2024 1:50PM EST [facility] XR Radius and Ulna - right A P and LateralOrdered By: Edmond Provider on 01-25-2024 [facility] Internal Medicine Office Vis lizette 01-01-2024 Internal Medicine Office Visit [facility] [address] [place] [address] [place] [address] OFFICE VISIT Date of Service: 01/01/24 MR#: [id number] Acct: [id number] Name: GENET COBB Rep #: [id number] : 1995 Provider: Dr. Skyler dumont MD Age/Sex: 28/F Location: [facility] Status: Signed Intake Vital Signs 09/30/23 15:06 12/08/23 20:29 01/01/24 15:19 Height 5 ft 3 in 5 ft 3 in 5 ft 3 in Weight: 193 lb BMI 34.2 BP 118/70 Blood Pressure Location Lt brachial Position Sitting Respiration 16 Pulse 75 Pulse Source Monitor Temp 98.5 F Temp Source Temporal Pulse Oximetry (%) 98 Oxygen Delivery Method room air Intake Visit Reasons: 3 M FU Chief Complaint: Follow-up chronic conditions. 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 Accompanied by: Self Is patient in pain?: No Allergies amoxicillin (Amoxicillin) Allergy (Verified 01/01/24 15:15) Hives propranolol HCl (From Inderal LA) Allergy (Verified 01/01/24 15:15) Hives Medications ???Medication ???Instructions ???Recorded ???Confirmed ???Type lamotrigine 200 mg tablet 150 mg PO BID 12/05/20 01/01/24 History (Lamictal) haloperidol 5 mg tablet 5 mg PO PRN PRN Anxiety 04/09/22 01/01/24 History lansoprazole 30 mg capsule,delayed 30 mg PO DAILY #90 caps 10/03/22 01/01/24 Rx release (Prevacid) levothyroxine 25 mcg tablet See Rx Instructions .Route 10/24/22 01/01/24 Rx .COMPLEX #30 tabs metformin 500 mg tablet 500 mg PO BID #180 tabs 02/20/23 01/01/24 Rx atomoxetine 40 mg capsule 40 mg PO QAM 06/26/23 01/01/24 History hydrocortisone 1 %-pramoxine 1 % 1 applic DE QHS PRN hemorrhoids 09/04/23 01/01/24 Rx rectal foam (Proctofoam HC) #10 grams polyethylene glycol 3350 17 17 g PO DAILY #119 grams 09/15/23 01/01/24 Rx gram/dose oral powder lactulose 10 gram/15 mL oral 10 g (15 mL) PO BID PRN 09/30/23 01/01/24 Rx solution constipation #3,000 mL lisinopril 10 mg tablet 10 mg PO DAILY #90 tabs 01/01/24 01/01/24 Rx PFSH Medical History (Updated 01/01/24 @ 16:[address] Skyler Rodriges MD) Atypical chest pain Chronic constipation Subclinical hypothyroidism Hypothyroidism GERD (gastroesophageal reflux disease) Wears glasses Depression Marijuana use Diabetes History of ulceration Gastric reflux Smoker Shortness of breath on exertion History of echocardiogram History of pneumonia Chronic vomiting Gastric ulcer Type 2 diabetes mellitus Ulcer Diabetes Tobacco abuse Morbid obesity Hypertension Anxiety Surgical History Hx of cholecystectomy Hx of colonoscopy History of cholecystectomy Family History Unknown Diabetes Multiple sclerosis cousin Mother Diabetes Hypertension Grandmother Diabetes Hypertension Aunt Multiple sclerosis Social History Smoking Status: Current every day smoker tobacco type: cigarettes and e-cigarettes Tobacco: How many years used: 7 alcohol intake: never substance use type: former substance user Date of last use: 04/16/2020, marijuana and methamphetamine caffeine: Yes what type of physical activity do you participate in: walking seatbelt use: always do you feel safe at home: Yes additional social history: unemployed HPI HPI Chief Complaint: Follow-up chronic conditions. Details: GENET COBB, is a 28 F who presents to the office today for follow-up of her chronic medical conditions. No acute concerns at this time. Seen for an acute visit at the emergency room for chest pain, workup done with no significant concerns. Thought to be musculoskeletal. Does not report any pain at this time. History of hypertension currently on lisinopril. Blood pressure today at 118/70 mmHg. No syncopal or near syncopal episodes. Also history of diabetes mellitus type 2 on metformin, tolerating medication well. No concerns for hypoglycemia. Other chronic medical conditions are stable. ROS Const Constitutional: No body ache, chills, excessive sweating, fatigue, fever(s), frequent falls, headache(s), snoring, weakness or change in appetite Eyes Eyes: No blurry vision, change in vision, bulging eyes, floaters, visual disturbances, eye pain or Light sensitivity ENT ENT: No abnormal hearing, ear or mastoid pain, tinnitus, balance problems, nosebleed/epistaxis, nasal congestion, headache(s), neck pain or sore throat Resp Respiratory: No cough, excessive phlegm production, pain on inspiration, shortness of breath, snoring or wheezing Cardio Cardiology: No chest pain at rest, chest pain with exertion, excessive sweating, dyspnea on exertion, lightheadedness, orthopnea or palpitations Gastro GI: No abdominal pain, change in bowel habits, constipation (more content not included)... Normal [facility] Gastroenterology Visit Repor ton 12-09-2023 Gastroenterology Visit Report [facility] Gastroenterology [address] [place] [address] OFFICE VISIT Date of Service: 12/09/23 MR#: [id number] Acct: [id number] Name: GENET COBB Rep #: [id number] : 1995 Provider: DEJA Saldana Age/Sex: 28/F Location: [facility] Status: Signed Intake Vital Signs 01/12/23 09:09 09/15/23 10:10 12/08/23 20:29 Height 5 ft 3 in 5 ft 3 in 5 ft 3 in Intake Visit Reasons: 5 MO FU Chief Complaint: Follow-up chronic conditions. Constipation. Allergies amoxicillin (Amoxicillin) Allergy (Verified 12/08/23 20:29) Hives propranolol HCl (From Inderal LA) Allergy (Verified 12/08/23 20:29) Hives [facility] Medical History Chronic constipation Subclinical hypothyroidism Hypothyroidism GERD (gastroesophageal reflux disease) Wears glasses Depression Marijuana use Diabetes History of ulceration Gastric reflux Smoker Shortness of breath on exertion History of echocardiogram History of pneumonia Chronic vomiting Gastric ulcer Type 2 diabetes mellitus Ulcer Diabetes Tobacco abuse Morbid obesity Hypertension Anxiety Surgical History Hx of cholecystectomy Hx of colonoscopy History of cholecystectomy Family History Unknown Diabetes Multiple sclerosis cousin Mother Diabetes Hypertension Grandmother Diabetes Hypertension Aunt Multiple sclerosis Social History Smoking Status: Current every day smoker tobacco type: cigarettes and e-cigarettes Tobacco: How many years used: 7 alcohol intake: never substance use type: former substance user Date of last use: 04/16/2020, marijuana and methamphetamine caffeine: Yes what type of physical activity do you participate in: walking seatbelt use: always do you feel safe at home: Yes additional social history: unemployed HPI HPI Chief Complaint: Follow-up chronic conditions. Constipation. Details: GENET COBB, is a 28 F who presents to the office today for *BGI established 03.13.22 for cyclic vomiting since 2019; presents every several months lasting for 1-2 weeks; heartburn present all the time, omeprazole 40mg QD ineffective. IBS previously diagnosed with BM every several days with occasional BRBPR since age 13. Cigarette use 1/2 -1 PPD; intermittent marijuana use, currently twice a day; previous use of meth, last used 04.17.20. ? GET ordered, not performed ? Biochemical CBC (EOS H7.6), CMP, amylase, lipase, VICTOR M comp, ANCA, celiac, IBD without pertinent abnormality. ? ESR H39, CRP H10.3 ? CT abd/pel 04.01.22 hepatic steatosis; subcentimeter mesenteric lymph nodes. ? EGD 04.10.22 non-severe esophagitis; medium hiatal hernia; gastritis; pyloric inflammation; duodenitis. No path changes. OV 3. Continue PPI, start colestipol OV 09.03.22 emesis has improved; continues with marijuana use. ? Stool 09.03.22 elastase not performed. PCP OV 10.03. and 01.12.23 reporting increased reflux and belching; admits to stopping medications throughout the years without updating the prescriber. Stopped use of PPI prescribed by GI. PCP discussed lifestyle and diet modification and importance of medication compliance. Restart prevacid, follow up notes she did not take this medication. OV 1. emesis has mostly resolved and this is no longer a concern; reports ongoing nausea on a frequent basis; watery loose stools alternating with constipation feeling. Genet has a difficult time remembering symptoms, what she eats, things she needs to do throughout the day. She has been told this is because of the medications she takes for psychiatric health, however, she feels this is interrupting her life significantly. OV 8..24 Patient is here today for f/u. She has been having diarrhea lately but is unsure how often. She has been having a lot of reflux symptoms with pain and eructation She is no longer have nausea and vomiting. She does continue to smoke marijuana. She continues to have problems with her memory and often forgets to take medications. 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 She has been recommended she see a neurologist but she has not done so. ROS Const Constitutional: Positive for weight change (weight loss); No fatigue or fever(s) ENT ENT: Positive for difficulty swallowing Gastro GI: Positive for change in bowel habits, (more content not included)... Normal [facility] 12 Lead EKGon 12-08-2023 12 Lead EKG [facility] Cardiovascular Services [address] [place] [address] 12 Lead EKG 12/08/232035 MR#: [id number] Acct: [id number] Name: GENET COBB Rep #: [id number] : 1995 From: Deny Meredith MD Attending Dr: Status: DEP ER Ordering Dr: Elijah Todd MD Date: 12/08/23 Location: ED Sex: F C Admitted: Test Reason : CP Blood Pressure : / mmHG Vent. Rate : 067 BPM Atrial Rate : 067 BPM P-R Int : 166 ms QRS Dur : 070 ms QT Int : 370 ms P-R-T Axes : -12 041 043 degrees QTc Int : 390 ms Normal sinus rhythm Normal ECG Confirmed by Deny Meredith ([id number]), film or videotape editor TANISHA GUTIÉRREZ ([id number]) on 12/09/2023 10:08:32 AM Referred By: ES Confirmed By:Deny Meredith 12/09/23 1008 Date Deny Meredith MD CC: Dr. Skyler Rodriges MD; Dr. Elijah Todd MD Signed Normal [facility] Basic Metabolic Profile (BMP )on 12-08-2023 BUN/CRE 10.9 RATIO Normal 10-20 [facility] Comment on above: Order Comment: 1Y Performed By: #### L 100.0100, L501.5425, L500.2500 ####[facility] [address] [place], [address] CA,Total 9.4 mg/dL Normal 8.5-10.1 [facility] Comment on above: Order Comment: 1Y Performed By: #### L 100.0100, L501.5425, L500.2500 ####[facility] [address] [place], [address] Chloride [Moles/Vol] 105 mmol/L Normal 98-107 [facility] Comment on above: Order Comment: 1Y Performed By: #### L 100.0100, L501.5425, L500.2500 ####[facility] [address] [place], [address] CO2 [Moles/Vol] 28.0 mmol/L Normal 21.0-32.0 [facility] Comment on above: Order Comment: 1Y Performed By: #### L 100.0100, L501.5425, L500.2500 ####[facility] [address] [place], [address] Creatinine [Mass/Vol] 0.92 mg/dL Normal 0.55-1.02 [facility] Comment on above: Order Comment: 1Y Result Comment: The validity of the calculated GFR GFRAA in patients over 70 years has not been determined. Clinical correlation is essential. Performed By: #### L 100.0100, L501.5425, L500.2500 ####[facility] [address] [place], [address] ECRCL 96.69 ml/min Normal [facility] Comment on above: Order Comment: 1Y Performed By: #### L 100.0100, L501.5425, L500.2500 ####[facility] [address] [place], [address] EST GFR - AA 94 mL/min Normal >60 [facility] Comment on above: Order Comment: 1Y Result Comment: Afri can Prydeinig GFR Calc Performed By: #### L 100.0100, L501.5425, L500.2500 ####[facility] [address] [place], [address] GAP 6 Normal 5-15 [facility] Comment on above: Order Comment: 1Y Performed By: #### L 100.0100, L501.5425, L500.2500 ####[facility] [address] [place], [address] GFR/1.73 sq M.predicted among non-blacks MDRD (S/P/Bld) [Vol rate/Area] 77 mL/min/{1.73_m2} Normal >60 [facility] Comment on above: Order Comment: 1Y Result Comment: Non- GFR Calc Performed By: #### L 100.0100, L501.5425, L500.2500 ####[facility] [address] [place], [address] Glucose [Mass/Vol] 91 mg/dL Normal 74-106 [facility] Comment on above: Order Comment: 1Y Performed By: #### L 100.0100, L501.5425, L500.2500 ####[facility] [address] [place], [address] Potassium [Moles/Vol] 3.6 mmol/L Normal 3.5-5.1 [facility] Comment on above: Order Comment: 1Y Performed By: #### L 100.0100, L501.5425, L500.2500 ####[facility] [address] [place], [address] Sodium [Moles/Vol] 139 mmol/L Normal 136-145 [facility] Comment on above: Order Comment: 1Y Performed By: #### L 100.0100, L501.5425, L500.2500 ####[facility] [address] [place], [address] Urea nitrogen [Mass/Vol] 10 mg/dL Normal 7-18 [facility] Comment on above: Order Comment: 1Y Performed By: #### L 100.0100, L501.5425, L500.2500 ####[facility] [address] [place], [address] CBC W/Diff, Automatedon 08- SMEAR COMMENT SCANNED Normal [facility] Comment on above: Result Comment: LYMP HOCYTOSIS NOTED Performed By: #### L 100.0100, L501.5425, L500.2500 ####[facility] [address] [place], [address] Chest 1 View (Portable)on Chest 1 View (Portable) [facility] Imaging Services [address] [place] [address] Chest 1 View (Portable) MR#: [id number] Acct: [id number] Name: GENET COBB Rep #: [id number] : 1995 F 28 From: Clayton Correa MD PCP: Dr. Skyler Rodriges MD Status: PRE ER Study: Chest 1 View (Portable) Date of Exam: 12/08/23 Exam# [id number] Ordering Dr: Waylon,Ed P. [id number] STUDY: X-RAY CHEST REASON FOR EXAM: Female, 28 years old. chest pain TECHNIQUE: PA COMPARISON: September 22, 2015 FINDINGS: The lungs are clear and expanded. There is no demonstrated pleural abnormality. Normal size heart. Normal mediastinum and rena. Normal visualized pulmonary arteries. Normal visualized aortic arch and descending thoracic aorta. Normal visualized thoracic spine. Normal visualized ribs, clavicles, and shoulders. There is no demonstrated abnormality of the visualized soft tissue structures of the upper abdomen. RAD/Chest 1 View (Portable) IMPRESSION: Normal x-ray examination of the chest. Electronically Signed: Clayton Correa MD at 21:12 EDT Reading Location ID and State: [facility] / DEJA Tel , Service support , CC: Dr. Skyler Rodriges MD; ED PHYSICIAN PROVIDER Battery Charger: Signed Normal [facility] Emergency Department Summary on 12-08-2023 Emergency Department Summary [facility] Medical Records Department [address] [address] Emergency Department Summary 12/08/23 MR#: [id number] Acct: [id number] Name: GENET COBB Rep #: [id number] : 1995 28 From: Elijah Todd MD PCP: Dr. Skyler Rodriges MD Status:REG ER Location: ED HPI History of Present Illness Chief Complaint: Chest Pain Informant: patient Onset/Context/Timing Onset: Days Activity at onset: gradual Timing: Intermittent Quality: Positive for Pain and Sharp Location: - (Sternal) Current Severity: Mild Maximum Severity: Mild Worsened By: Nothing Relieved By: Nothing Associated Symptoms: Negative for Nausea, Vomiting, Diaphoresis, Dyspnea, Cough, Fever, Lightheadedness, Acid Reflux or Palpitations Narrative Narrative: 28-year-old female with intermittent sternal chest pain for 1 to 2 weeks. There is days she does not have a normal and other times she does have it. Denies any injury. Denies any shortness of breath. Denies any nausea or diaphoresis. This is not exertional. She has no cardiac history. No history of DVT or PE. No recent travel, surgery or immobilization. No calf pain or swelling. No hemoptysis. The pain is not pleuritic. She does have a history of anxiety and depression. Nothing particularly makes the pain better or worse. Prior Similar Symptoms: No Recent Illness/Hospitalizatio n: No CVD Risk Factors: Positive for Diabetes; Negative for Hypertension PE Risk Factors: Negative for Recent Travel/Surgery, Recent Immobilization, Prior DVT or PE, Cancer or OCP + Smoking + >/=35 TAD Risk Factors: Negative for Marfan's Syndrome or Hypertension [facility] Medical History Chronic constipation Subclinical hypothyroidism Hypothyroidism GERD (gastroesophageal reflux disease) Wears glasses Depression Marijuana use Diabetes History of ulceration Gastric reflux Smoker Shortness of breath on exertion History of echocardiogram History of pneumonia Chronic vomiting Gastric ulcer Type 2 diabetes mellitus Ulcer Diabetes Tobacco abuse Morbid obesity Hypertension Anxiety Home Medications ???Medication ???Instructions ???Recorded ???Last Taken ???Type lamotrigine 200 mg tablet 150 mg PO BID 12/05/20 Unknown History (Lamictal) haloperidol 5 mg tablet 5 mg PO PRN PRN Anxiety 04/09/22 Unknown History lansoprazole 30 mg capsule,delayed 30 mg PO DAILY #90 caps 10/03/22 Unknown Rx release (Prevacid) levothyroxine 25 mcg tablet See Rx Instructions .Route 10/24/22 Unknown Rx .COMPLEX #30 tabs metformin 500 mg tablet 500 mg PO BID #180 tabs 02/20/23 Unknown Rx lisinopril 10 mg tablet 10 mg PO DAILY #90 tabs 03/09/23 Unknown Rx atomoxetine 40 mg capsule 40 mg PO QAM 06/26/23 Unknown History hydrocortisone 1 %-pramoxine 1 % 1 applic DE QHS PRN hemorrhoids 09/04/23 Unknown Rx rectal foam (Proctofoam HC) #10 grams polyethylene glycol 3350 17 17 g PO DAILY #119 grams 09/15/23 Unknown Rx gram/dose oral powder lactulose 10 gram/15 mL oral 10 g (15 mL) PO BID PRN 09/30/23 Unknown Rx solution constipation #3,000 mL Allergy/AdvReac Type Severity Reaction Status Date / Time amoxicillin (Amoxicillin) Allergy Hives Verified 12/08/23 20:29 propranolol HCl (From Allergy Hives Verified 12/08/23 20:29 Inderal LA) Family History Unknown Diabetes Multiple sclerosis cousin Mother Diabetes Hypertension Grandmother Diabetes Hypertension Aunt Multiple sclerosis Surgical History Hx of cholecystectomy Hx of colonoscopy History of cholecystectomy Social History Smoking Status: Current every day smoker tobacco type: cigarettes Tobacco: How many years used: 7 alcohol intake: never substance use type: former substance user Date of last use: 04/16/2020, marijuana and methamphetamine caffeine: Yes what type of physical activity do you participate in: walking seatbelt use: always do you feel safe at home: Yes additional social history: unemployed ROS ROS ED ROS Narrative Chest pain. Denies recent illness. Constitutional Constitutional ED: Denies chills or fever(s) Eyes Eyes: Reports none ENT ENT ED: Denies ear pain Cardiovascular Cardiovascular: Reports chest pain; Denies palpitations or racing heartbeat Respiratory/Chest Respiratory/Chest: Denies cough, dyspnea or dyspnea on exertion Gastrointestinal Gastrointestinal: Denies abdominal pain, constipation, diarrhea, melena, nausea or vomiting Genitourinary Genitourinary ED: Denies dysuria or hematuria Musculoskeletal Musculoskeletal: Denies arthralgias Integumentary Denies abscess Neurologic N (more content not included)... Normal [facility] L501.5425on 12-08-2023 TROPONIN-I HS 4 pg/mL Normal 3.0-54.0 [facility] Comment on above: Order Comment: 1Y Result Comment: Maya herndon Note: New Test Units and Gender Specific Reference Ranges. For more information see Policy Stat Procedure [place] High Sensitivity Troponin (TNIH) and attachments. Performed By: #### L 100.0100, L501.5425, L500.2500 ####[facility] [address] [place], [address] [facility] 11-29-2023 [facility] Telephone ([facility]) GENET COBB ([id number]) 1995 F Date Time Provider Department 11/29/23 JERMAINE GRAYSON [facility] During your visit today, we recorded the following information about you: Jermaine Grayson APRN.FABRIC 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 11/29/2023 9:31 AM Signed Urine culture did not grow any specific bacteria. If symptoms persist after medication you were prescribed yesterday please follow-up with primary care Elias Yu MA 11/29/2023 10:04 AM Signed Pt was notified of the results. Pt verbalized understanding. Elias Yu MA Allergies As of Date: 11/29/2023 Noted Allergy Reaction AMOXICILLIN 01/17/2008 4 - Hives INDERAL (PROPRANOLOL) 03/13/2011 4 - Hives Date Reviewed: 11/27/2023 Reviewed by: Pedro Storm MA - Fully Assessed Reason for Visit: Results [95] Prescriptions as of 11/29/2023 - metroNIDAZOLE (FLAGYL) 500 mg tablet Take 1 tablet by mouth two times a day for 7 days. - Miconazole Nitrate (MONISTAT 3) 200 mg/5 gram (4 %) crea Use 1 Applicator vaginally once daily for 3 days. - atomoxetine (STRATTERA) 40 mg capsule take 1 capsule by mouth once daily in the morning - levothyroxine (SYNTHROID) 25 mcg tablet - lamoTRIgine (LAMICTAL) 200 mg tablet Take by mouth. - metFORMIN (GLUCOPHAGE) 500 mg tablet Take by mouth. - lisinopril (ZESTRIL, PRINIVIL) 10 mg tablet Take 1 tablet by mouth once daily. - busPIRone (BUSPAR) 10 mg tablet Take 1 tablet by mouth twice daily. - Levonorgestrel-Ethinyl Estrad 0.1mg - 20mcg per tablet Take 1 tablet by mouth as directed. Problem List As Of Date 11/29/2023 Noted Resolved Elevated blood pressure [VIN3957] 01/07/2011 08/21/2011 Obesity (BMI 35.0-39.9 without comorbidity) [E6*01/07/2011 Headache [R51] 03/13/2011 Family history of hypertension [Z82.49] 07/23/2011 Hypertension [I10] 08/21/2011 Left ventricular hypertrophy [I51.7] 07/22/2012 Metabolic syndrome [E88.810] 07/22/2012 Dyslipidemia (high LDL; low HDL) [E78.5] 07/22/2012 Prediabetes [R73.03] 06/28/2018 Encounter Status:Closed by ELIAS YU on 11/29/23 [facility] 11-28-2023 [facility] Telephone ([facility]) GENET COBB ([id number]) 1995 F Date Time Provider Department 11/28/23 JERMAINE GRAYSON [facility] During your visit today, we recorded the following information about you: Jermaine Grayson APRN.FABRIC 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 11/28/2023 8:16 AM Signed Positive for yeast and bacterial vaginosis. Flagyl was called in for the BV please do not drink alcohol with this medication. Monistat cream was called in for the yeast. Negative for chlamydia, trichomonas, gonorrhea. Pedro Storm MA 11/28/2023 8:45 AM Signed Patient notified of results, verbalized understanding of instructions given. Pedro Storm MA Allergies As of Date: 11/28/2023 Noted Allergy Reaction AMOXICILLIN 01/17/2008 4 - Hives INDERAL (PROPRANOLOL) 03/13/2011 4 - Hives Date Reviewed: 11/27/2023 Reviewed by: Pedro Storm MA - Fully Assessed Reason for Visit: Results [95] Order(s):metroNIDAZOLE (FLAGYL) 500 mg tabletTake 1 tablet by mouth two times a day for 7 days.Disp: 14 tabletRfl: 0 Miconazole Nitrate (MONISTAT 3) 200 mg/5 gram (4 %) creaUse 1 Applicator vaginally once daily for 3 days.Disp: 25 gRfl: 0 Prescriptions as of 11/28/2023 - metroNIDAZOLE (FLAGYL) 500 mg tablet Take 1 tablet by mouth two times a day for 7 days. - Miconazole Nitrate (MONISTAT 3) 200 mg/5 gram (4 %) crea Use 1 Applicator vaginally once daily for 3 days. - atomoxetine (STRATTERA) 40 mg capsule take 1 capsule by mouth once daily in the morning - levothyroxine (SYNTHROID) 25 mcg tablet - lamoTRIgine (LAMICTAL) 200 mg tablet Take by mouth. - metFORMIN (GLUCOPHAGE) 500 mg tablet Take by mouth. - lisinopril (ZESTRIL, PRINIVIL) 10 mg tablet Take 1 tablet by mouth once daily. - busPIRone (BUSPAR) 10 mg tablet Take 1 tablet by mouth twice daily. - Levonorgestrel-Ethinyl Estrad 0.1mg - 20mcg per tablet Take 1 tablet by mouth as directed. Problem List As Of Date 11/28/2023 Noted Resolved Elevated blood pressure [DID2711] 01/07/2011 08/21/2011 Obesity (BMI 35.0-39.9 without comorbidity) [E6*01/07/2011 Headache [R51] 03/13/2011 Family history of hypertension [Z82.49] 07/23/2011 Hypertension [I10] 08/21/2011 Left ventricular hypertrophy [I51.7] 07/22/2012 Metabolic syndrome [E88.810] 07/22/2012 Dyslipidemia (high LDL; low HDL) [E78.5] 07/22/2012 Prediabetes [R73.03] 06/28/2018 Prescriptions ordered this encounter Disp Refills Start End METRONIDAZOLE 500 MG TABLET 14 t* 0 11/28/2023 12/05/2023 Route: ORAL Sig: Take 1 tablet by mouth two times a day for 7 days. MONISTAT 3 200 MG/5 GRAM (4 %) VAGIN* 25 g 0 11/28/2023 12/01/2023 Route: VAGINAL Sig: Use 1 Applicator vaginally once daily for 3 days. Encounter Status:Closed by PEDRO STORM on 11/28/23 Normal [facility] BACTERIAL VAGINOSIS NAATon 0 11-27-2023 Lactobacillus crispatus+gasseri+jense wendy + Gardnerella vaginalis + Atopobium vaginae rRNA LAWSON+probe Ql (Vag fld) Positive Abnormal Negative for bacterial vaginosis [facility] Comment on above: Order Comment: Speci men Type: SWABOrdering Facility: [facility] Address: [address] [place] [address] Performed By: #### Niru BRUNER, [id number] ####[facility] LABCLIA [id number] [place] [address] [place] Bacteria Ur Culton 4 Bacteria identified Cx Nom (U) ORGANISM ID: 1 <10,000 CFU/ml Normal urogenital fausto Normal [facility] Comment on above: Performed By: #### 6 30-4 ####[facility] LABCLIA [id number] [place] [address] [place] C. trachomatis+N. gonorrhoea e DNA LAWSON+probe Ql (Unsp spec)on 11-27-2023 C. trachomatis rRNA LAWSON+probe Ql (Unsp spec) Negative Normal Negative for Chlamydia trachomatis by amplificaton [facility] Comment on above: Order Comment: Speci men Type: SWABOrdering Facility: [facility] Address: [address] [place] [address] Performed By: #### Niru BRUNER, [id number] ####[facility] LABCLIA [id number] [place] [address] [place] N. gonorrhoeae rRNA LAWSON+probe Ql (Unsp spec) Negative Normal Negative for Neisseria gonorrhoeae by amplification [facility] Comment on above: Order Comment: Speci men Type: SWABOrdering Facility: [facility] Address: [address] [place] [address] Performed By: #### Niru BRUNER, [id number] ####[facility] LABCLIA [id number] [place] [address] [place] DONIS/TRICHOMONAS NAATon 0 11-27-2023 C. glabrata RNA LAWSON+probe Ql (Vag fld) Negative Normal Negative for Donis glabrata [facility] Comment on above: Order Comment: Speci men Type: SWABOrdering Facility: [facility] Address: [address] [place] [address] Performed By: #### C VTV ####[facility] LABCLIA [id number] [place] [address] [place] Donis sp DNA LAWSON+probe Ql (Vag fld) Positive Abnormal Negative for Donis species [facility] Comment on above: Order Comment: Speci men Type: SWABOrdering Facility: [facility] Address: [address] [place] [address] Performed By: #### C VTV ####[facility] LABCLIA [id number] [address] [place] T. vaginalis DNA LAWSON+probe Ql (Unsp spec) Negative Normal Negative for Trichomonas vaginalis by amplification [facility] Comment on above: Order Comment: Speci men Type: SWABOrdering Facility: [facility] Address: [address] [place] [address] Performed By: #### C VTV ####[facility] LABCLIA [id number] [address] [place] CNOVon 11-27-2023 CNOV Office Visit (UCWSTR ) GENET COBB ([id number]) 1995 F Date Time Provider Department 11/27/23 1:45 PM HARRIETT CASTILLO [facility] During your visit today, we recorded the following information about you: Temperature Pulse Respiration Blood pressure 98.4 degrees 95/minute 18/minute 111/76 Weight Last Period 88.6 kg 11/02/23 Harriett Castillo APRN.FABRIC 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 11/27/2023 2:34 PM Signed This note was created using NoteWriter. Subjective Genet Hunt Reza is a 28 year old female. 28 year old female with PMH HTN, IBS, dyslipidemia, pre-diabetes presents for complaints. 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 Denies skin rash or lesions. Denies N/V/D +sexually active LMP-October 26 The history is provided by the patient. No electromechanical equipment assembler was used. Female Gu Problem This is a new problem. The current episode started 3 to 5 days ago. The onset was sudden. The problem occurs continuously. The problem has been gradually worsening. The patient is experiencing no pain. Nothing relieves the symptoms. Nothing aggravates the symptoms. Associated symptoms include frequency, urgency and vaginal discharge. Pertinent negatives include no chest pain, no anorexia, no chills, no fever, no abdominal pain, no constipation, no diarrhea, no nausea, no vomiting, no dysuria, no hematuria, no pelvic pain, no vaginal bleeding, no vaginal pain, no headaches, no sore throat, no back pain, no flank pain, no cough, no rash and no dyspareunia. Urine output has been normal. The last void occurred Less than 6 hours ago. She is currently Sexually active. She has 1 sexual partner. Contraceptives used include nothing. She is not . She has missed her period. The patient's menstrual history has been irregular. There were no sick contacts. She has received no recent medical care. PAST MEDICAL HISTORY No date: Anxiety 01/07/2011: Elevated blood pressure No date: Excessive anger 03/13/2011: Headache(784.0) No date: History of drug use Comment: meth and marajuana No date: IBS (irritable bowel syndrome) No date: Left ventricular hypertrophy 01/07/2011: Overweight(278.02) PAST SURGICAL HISTORY 07/04/2015: COLONOSCOPY FLX DX W/COLLJ SPEC WHEN PFRMD Comment: Colonoscopy 10-07-13: LAPS SURG CHOLECYSTECTOMY W/CHOLANGIOGRAPHY ALLERGIES Amoxicillin and Inderal [Propranolol] MEDICATIONS atomoxetine (STRATTERA) 40 mg capsule take 1 capsule by mouth once daily in the morning lamoTRIgine (LAMICTAL) 200 mg tablet Take by mouth. metFORMIN (GLUCOPHAGE) 500 mg tablet Take by mouth. lisinopril (ZESTRIL, PRINIVIL) 10 mg tablet Take 1 tablet by mouth once daily. levothyroxine (SYNTHROID) 25 mcg tablet (Patient not taking: Reported on 11/27/2023) busPIRone (BUSPAR) 10 mg tablet Take 1 tablet by mouth twice daily. (Patient not taking: Reported on 11/27/2023) Levonorgestrel-Ethinyl Estrad 0.1mg - 20mcg per tablet Take 1 tablet by mouth as directed. (Patient not taking: Reported on 11/27/2023) FAMILY HISTORY Problem Relation Age of Onset Hypertension Mother Diabetes Mother None Father Diabetes Maternal Grandmother Thyroid Maternal Grandmother Diabetes Maternal Grandfather Asthma Paternal Grandmother Diabetes Maternal Aunt Hypertension Maternal Aunt Social History Tobacco Use Smoking status: Every Day Packs/day: .2 Types: Cigarettes Last attempt to quit: 05/14/2014 Years since quittin.5 Smokeless tobacco: Never Substance Use Topics Alcohol use: No Drug use: No Review of Systems Constitutional: Negative for chills and fever. HENT: Negative for sore throat. Eyes: Negative for pain, discharge, redness and itching. Respiratory: Negative for cough. Cardiovascular: Negative for chest pain. Gastrointestinal: Negative for abdominal pain, anorexia, constipation, diarrhea, nausea and vomiting. Genitourinary: Positive for frequency, urgency and vaginal discharge. Negative for dyspareunia, dysuria, flank pain, hematuria, pelvic pain, vaginal bleeding and vaginal pain. Musculoskeletal: Negative for back pain. Skin: Negative for color change, pallor and rash. Neurological: Negative for headaches. Psychiatric/Behavioral : Negative for agitation and behavioral problems. Objective BP 111/76 Pulse 95 Temp 36.9 ?C (98.4 ?F) Resp 18 Wt 88.6 kg (195 lb 5.2 oz) LMP 11/02/2023 (Within Days) SpO2 97% BMI 33.53 kg/m? Physical Exam Vitals and nursing note reviewed. Constitutional: General: She is not in acute distress. Appearance: Normal appearance. She is normal weight. She is not ill-appearing, toxic-appearing or diaphoretic. HENT: Head: Normocephalic and atraumatic. Right Ear: Ear canal and external ear normal. Left Ear: Ear canal and external ear normal. Nose: Nose norm (more content not included)... Normal [facility] No Panel Informationon 11-26 Location:[facility], [address] [place] [address], [place], [address] [facility] POINT OF CARE [facility] UA DIP, URINE (POC)on 2023 BILIRUBIN UA (POCT) Negative Negative [facility] CLARITY UA (POCT) Clear [facility] COLOR UA (POCT) Yellow [facility] GLUCOSE UA (POCT) Negative Negative mg/dL [facility] Hemoglobin Ql (U) Negative Negative [facility] KETONE UA (POCT) Negative Negative mg/dL [facility] LEUKOCYTES UA (POCT) Negative Negative [facility] NITRITE UA (POCT) Negative Negative [facility] PH UA (POCT) 6.0 4.5 - 8.0 [facility] Protein Ql (U) Negative Negative mg/dL [facility] SPECIFIC GRAVITY UA (POCT) 1.025 1.005 - 1.030 [facility] UROBILINOGEN UA (POCT) 0.2 Normal E.U./d L [facility] UA DIP,URINE HCG (POC)on Beta HCG ( test) Ql (U) Negative Negative [facility] Comment on above: Location:[facility], [address] [place] [address], [place], [address] Net Wpf Developer (POCT) Internal QC OK [facility] CBC W/Diff, Automatedon 09-11 Absolute Lymph 3.52 X10 3/uL Normal 0.83-4.51 [facility] Comment on above: Performed By: #### L 500.4050, L501.9520, L100.0100, L500.4100, L501.9985 #### [facility] [address] [place], [address] Absolute Neut 4.5 X10 3/uL Normal 2.0-7.7 [facility] Comment on above: Performed By: #### L 500.4050, L501.9520, L100.0100, L500.4100, L501.9985 #### [facility] [address] [place], [address] Basophils/100 WBC (Bld) 0.6 % Normal 0-1 [facility] Comment on above: Performed By: #### L 500.4050, L501.9520, L100.0100, L500.4100, L501.9985 #### [facility] [address] [place], [address] Eosinophils/100 WBC (Bld) 3.5 % Normal 0-5 [facility] Comment on above: Performed By: #### L 500.4050, L501.9520, L100.0100, L500.4100, L501.9985 #### [facility] [address] [place], [address] Erythrocyte distribution width (RBC) [Ratio] 13.2 % Normal 11.6-14.6 [facility] Comment on above: Performed By: #### L 500.4050, L501.9520, L100.0100, L500.4100, L501.9985 #### [facility] [address] [place], [address] Hematocrit (Bld) [Volume fraction] 41.4 % Normal 37-47 [facility] Comment on above: Performed By: #### L 500.4050, L501.9520, L100.0100, L500.4100, L501.9985 #### [facility] [address] [place], [address] Hemoglobin (Bld) [Mass/Vol] 13.4 g/dL Normal 12.0-15.0 [facility] Comment on above: Performed By: #### L 500.4050, L501.9520, L100.0100, L500.4100, L501.9985 #### [facility] [address] [place], [address] IG% 0.200 Normal 0.0-0.9 [facility] Comment on above: Result Comment: IG% - Immature Granulocytes (promyelocytes, myelocytes and metamyelocytes) > 1% indicates that a LEFT SHIFT is Present. Performed By: #### L 500.4050, L501.9520, L100.0100, L500.4100, L501.9985 #### [facility] [address] [place], [address] Lymphocytes/100 WBC (Bld) 39.2 % Normal 19-41 [facility] Comment on above: Performed By: #### L 500.4050, L501.9520, L100.0100, L500.4100, L501.9985 #### [facility] [address] [place], [address] MCH (RBC) [Entitic mass] 29.5 pg Normal 27.0-32.0 [facility] Comment on above: Performed By: #### L 500.4050, L501.9520, L100.0100, L500.4100, L501.9985 #### [facility] [address] [place], [address] MCHC (RBC) [Mass/Vol] 32.4 g/dL Normal 32-36 [facility] Comment on above: Performed By: #### L 500.4050, L501.9520, L100.0100, L500.4100, L501.9985 #### [facility] [address] [place], [address] MCV (RBC) [Entitic vol] 91.0 fL Normal 81-99 [facility] Comment on above: Performed By: #### L 500.4050, L501.9520, L100.0100, L500.4100, L501.9985 #### [facility] [address] [place], [address] Monocytes/100 WBC (Bld) 6.0 % Normal 0-10 [facility] Comment on above: Performed By: #### L 500.4050, L501.9520, L100.0100, L500.4100, L501.9985 #### [facility] [address] [place], [address] Neutrophils/100 WBC (Bld) 50.5 % Normal 47-70 [facility] Comment on above: Performed By: #### L 500.4050, L501.9520, L100.0100, L500.4100, L501.9985 #### [facility] [address] [place], [address] Nucleated RBC (Bld) [#/Vol] 0 10*3/uL Normal 0-5 [facility] Comment on above: Performed By: #### L 500.4050, L501.9520, L100.0100, L500.4100, L501.9985 #### [facility] [address] [place], [address] Platelet mean volume (Bld) [Entitic vol] 10.8 fL Normal 6.2-12.0 [facility] Comment on above: Performed By: #### L 500.4050, L501.9520, L100.0100, L500.4100, L501.9985 #### [facility] [address] [place], [address] Platelets (Bld) [#/Vol] 294 10*3/uL Normal 150-450 [facility] Comment on above: Performed By: #### L 500.4050, L501.9520, L100.0100, L500.4100, L501.9985 #### [facility] [address] [place], [address] RBC (Bld) [#/Vol] 4.55 10*6/uL Normal 4.2-5.4 [facility] Comment on above: Performed By: #### L 500.4050, L501.9520, L100.0100, L500.4100, L501.9985 #### [facility] [address] [place], [address] RDW SD 44.0 fl High 35.1-43.9 [facility] Comment on above: Performed By: #### L 500.4050, L501.9520, L100.0100, L500.4100, L501.9985 #### [facility] [address] [place], [address] WBC (Bld) [#/Vol] 9.0 10*3/uL Normal 4.4-11.0 [facility] Comment on above: Performed By: #### L 500.4050, L501.9520, L100.0100, L500.4100, L501.9985 #### [facility] [address] [place], [address] Comprehensive Metabolic Prof ilon 09-30-2023 Albumin [Mass/Vol] 3.8 g/dL Normal 3.2-5.0 [facility] Comment on above: Performed By: #### L 500.4050, L501.9520, L100.0100, L500.4100, L501.9985 ####[facility] [address] [place], [address] Albumin/Globulin [Mass ratio] 1.0 {ratio} Normal 0.9-2.4 [facility] Comment on above: Performed By: #### L 500.4050, L501.9520, L100.0100, L500.4100, L501.9985 ####[facility] [address] [place], [address] ALK P 64 U/L Normal 45-117 [facility] Comment on above: Performed By: #### L 500.4050, L501.9520, L100.0100, L500.4100, L501.9985 ####[facility] [address] [place], [address] ALT [Catalytic activity/Vol] 21 U/L Normal 13-56 [facility] Comment on above: Performed By: #### L 500.4050, L501.9520, L100.0100, L500.4100, L501.9985 ####[facility] [address] [place], [address] AST [Catalytic activity/Vol] 16 U/L Normal 15-37 [facility] Comment on above: Performed By: #### L 500.4050, L501.9520, L100.0100, L500.4100, L501.9985 ####[facility] [address] [place], [address] Bilirubin [Mass/Vol] 0.60 mg/dL Normal 0.20-1.00 [facility] Comment on above: Result Comment: For patients on eltrombopag therapy, use of Dimension [place] TBIL is not recommended. Performed By: #### L 500.4050, L501.9520, L100.0100, L500.4100, L501.9985 ####[facility] [address] [place], [address] BUN/CRE 7.8 RATIO Low 10-20 [facility] Comment on above: Performed By: #### L 500.4050, L501.9520, L100.0100, L500.4100, L501.9985 ####[facility] [address] [place], [address] CA,Total 8.5 mg/dL Normal 8.5-10.1 [facility] Comment on above: Performed By: #### L 500.4050, L501.9520, L100.0100, L500.4100, L501.9985 ####[facility] [address] [place], [address] Chloride [Moles/Vol] 107 mmol/L Normal 98-107 [facility] Comment on above: Performed By: #### L 500.4050, L501.9520, L100.0100, L500.4100, L501.9985 ####[facility] [address] [place], [address] CO2 [Moles/Vol] 24.0 mmol/L Normal 21.0-32.0 [facility] Comment on above: Performed By: #### L 500.4050, L501.9520, L100.0100, L500.4100, L501.9985 ####[facility] [address] [place], [address] Creatinine [Mass/Vol] 0.89 mg/dL Normal 0.55-1.02 [facility] Comment on above: Result Comment: The validity of the calculated GFR GFRAA in patients over 70 years has not been determined. Clinical correlation is essential. Performed By: #### L 500.4050, L501.9520, L100.0100, L500.4100, L501.9985 ####[facility] [address] [place], [address] EST GFR - AA 97 mL/min Normal >60 [facility] Comment on above: Result Comment: Afri can Prydeinig GFR Calc Performed By: #### L 500.4050, L501.9520, L100.0100, L500.4100, L501.9985 ####[facility] [address] [place], [address] GAP 6 Normal 5-15 [facility] Comment on above: Performed By: #### L 500.4050, L501.9520, L100.0100, L500.4100, L501.9985 ####[facility] [address] [place], [address] GFR/1.73 sq M.predicted among non-blacks MDRD (S/P/Bld) [Vol rate/Area] 80 mL/min/{1.73_m2} Normal >60 [facility] Comment on above: Result Comment: Non- GFR Calc Performed By: #### L 500.4050, L501.9520, L100.0100, L500.4100, L501.9985 ####[facility] [address] [place], [address] Globulin (S) [Mass/Vol] 3.9 g/dL Normal 2.2-4.2 [facility] Comment on above: Performed By: #### L 500.4050, L501.9520, L100.0100, L500.4100, L501.9985 ####[facility] [address] [place], [address] Glucose [Mass/Vol] 97 mg/dL Normal 74-106 [facility] Comment on above: Performed By: #### L 500.4050, L501.9520, L100.0100, L500.4100, L501.9985 ####[facility] [address] [place], [address] Potassium [Moles/Vol] 3.8 mmol/L Normal 3.5-5.1 [facility] Comment on above: Performed By: #### L 500.4050, L501.9520, L100.0100, L500.4100, L501.9985 ####[facility] [address] [place], [address] Sodium [Moles/Vol] 137 mmol/L Normal 136-145 [facility] Comment on above: Performed By: #### L 500.4050, L501.9520, L100.0100, L500.4100, L501.9985 ####[facility] [address] [place], [address] T PROT 7.7 g/dL Normal 6.4-8.2 [facility] Comment on above: Performed By: #### L 500.4050, L501.9520, L100.0100, L500.4100, L501.9985 ####[facility] [address] [place], [address] Urea nitrogen [Mass/Vol] 7 mg/dL Normal 7-18 [facility] Comment on above: Performed By: #### L 500.4050, L501.9520, L100.0100, L500.4100, L501.9985 ####[facility] [address] [place], [address] Hemoglobin A1con 09-30-2023 HbA1c (Bld) [Mass fraction] 5.4 % Normal 3.8-5.6 [facility] Comment on above: Result Comment: Norm al < 5.7 % Prediabetic 5.7 - 6.4 % Diabetic >or= 6.5 % Please note range changes. Performed By: #### L 500.4050, L501.9520, L100.0100, L500.4100, L501.9985 ####[facility] [address] [place], [place], [address] Internal Medicine Office Vis iton 09-30-2023 Internal Medicine Office Visit [facility] [address] [place], [place] [address] OFFICE VISIT Date of Service: 09/30/23 MR#: [id number] Acct: [id number] Name: GENET COBB Rep #: [id number] : 1995 Provider: Dr. Skyler dumont MD Age/Sex: 28/F Location: [facility] Status: Signed Intake Vital Signs 09/04/23 14:32 09/15/23 10:10 09/30/23 15:06 Height 5 ft 3 in 5 ft 3 in 5 ft 3 in Weight: 198 lb 6 oz BMI 35.1 BP 126/80 H Blood Pressure Location Lt brachial Position Sitting Respiration 16 Pulse 84 Pulse Source Monitor Temp 97.6 F L Temp Source Temporal Pulse Oximetry (%) 98 Oxygen Delivery Method room air Intake Visit Reasons: FOLLOW UO Chief Complaint: Follow-up chronic conditions. Constipation. 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 Accompanied by: Self Is patient in pain?: No Allergies amoxicillin (Amoxicillin) Allergy (Verified 09/30/23 15:02) Hives propranolol HCl (From Inderal LA) Allergy (Verified 09/30/23 15:02) Hives Medications ???Medication ???Instructions ???Recorded ???Confirmed ???Type lamotrigine 200 mg tablet 150 mg PO BID 12/05/20 09/30/23 History (Lamictal) haloperidol 5 mg tablet 5 mg PO PRN PRN Anxiety 04/09/22 09/30/23 History lansoprazole 30 mg capsule,delayed 30 mg PO DAILY #90 caps 10/03/22 09/30/23 Rx release (Prevacid) levothyroxine 25 mcg tablet See Rx Instructions .Route 10/24/22 09/30/23 Rx .COMPLEX #30 tabs metformin 500 mg tablet 500 mg PO BID #180 tabs 02/20/23 09/30/23 Rx lisinopril 10 mg tablet 10 mg PO DAILY #90 tabs 03/09/23 09/30/23 Rx atomoxetine 40 mg capsule 40 mg PO QAM 06/26/23 09/30/23 History hydrocortisone 1 %-pramoxine 1 % 1 applic DE QHS PRN hemorrhoids 09/04/23 09/30/23 Rx rectal foam (Proctofoam HC) #10 grams polyethylene glycol 3350 17 17 g PO DAILY #119 grams 09/15/23 09/30/23 Rx gram/dose oral powder lactulose 10 gram/15 mL oral 10 g (15 mL) PO BID PRN 09/30/23 09/30/23 Rx solution constipation #3,000 mL [facility] Medical History (Updated 09/30/23 @ 15:[address] Skyler Rodriges MD) Chronic constipation Subclinical hypothyroidism Hypothyroidism GERD (gastroesophageal reflux disease) Wears glasses Depression Marijuana use Diabetes History of ulceration Gastric reflux Smoker Shortness of breath on exertion History of echocardiogram History of pneumonia Chronic vomiting Gastric ulcer Type 2 diabetes mellitus Ulcer Diabetes Tobacco abuse Morbid obesity Hypertension Anxiety Surgical History Hx of cholecystectomy Hx of colonoscopy History of cholecystectomy Family History Unknown Diabetes Multiple sclerosis cousin Mother Diabetes Hypertension Grandmother Diabetes Hypertension Aunt Multiple sclerosis Social History Smoking Status: Current every day smoker tobacco type: cigarettes Tobacco: How many years used: 7 alcohol intake: never substance use type: former substance user Date of last use: 04/16/2020, marijuana and methamphetamine caffeine: Yes what type of physical activity do you participate in: walking seatbelt use: always do you feel safe at home: Yes additional social history: unemployed HPI HPI Chief Complaint: Follow-up chronic conditions. Constipation. Details: GENET COBB, is a 28 F who presents to the office today for follow-up of her chronic medical conditions. Also has some concerns. Over the last couple of weeks, she has noted worsening constipation. She was seen at the emergency room and per documentation, had a large bowel movement after enema. Started on suppository but stopped after noting blood in her stool. Has been taking MiraLAX without any significant improvement. Some abdominal discomfort however, no nausea or vomiting. No weight changes. Has an appointment with GI in November. History of hypothyroidism on levothyroxine. She admits that she has not been taking levothyroxine due to timing. Has a prescription at home. Other chronic medical conditions are otherwise stable. Blood pressure today is at 126/80 mmHg, currently on lisinopril. ROS Const Constitutional: No body ache, chills, excessive sweating, fatigue, fever(s), frequent falls, headache(s), snoring, weakness or change in appetite Eyes Eyes: No blurry vision, change in vision, bulging eyes, floaters, visual disturbances, eye pain or Light sensitivity ENT ENT: No abnormal hearing, ear or mastoid pain, tinnitus, balance problems, nosebleed/epistaxis, nasal congestion, headache(s), neck pain or sore throat Resp Respiratory: No cough, excessive phlegm production, pain on inspiration, shortness of breath, snoring or wheezing Cardio Cardiolog (more content not included)... Normal [facility] Lipid Profileon 09-30-2023 Cholesterol [Mass/Vol] 173 mg/dL Normal 200 [facility] Comment on above: Result Comment: <200 mg/dL Desirable 200-240 mg/dL Borderline >240 mg/dL High Risk Performed By: #### L 500.4050, L501.9520, L100.0100, L500.4100, L501.9985 ####[facility] [id number] [place], [address] Cholesterol in HDL [Mass/Vol] 40 mg/dL Normal [facility] Comment on above: Result Comment: The drugs N-Acetylcysteine and Metamizole may falsely depress this assay. Reference Range HDL <40 mg/dL Low HDL Cholesterol HDL >or= 60 mg/dL High HDL Cholesterol Performed By: #### L 500.4050, L501.9520, L100.0100, L500.4100, L501.9985 ####[facility] [id number] [place], [address] Cholesterol in LDL [Mass/Vol] 118 mg/dL Normal 0-130 [facility] Comment on above: Performed By: #### L 500.4050, L501.9520, L100.0100, L500.4100, L501.9985 ####[facility] [id number] [place], [address] Cholesterol in VLDL [Mass/Vol] 15 mg/dL Normal 5-40 [facility] Comment on above: Performed By: #### L 500.4050, L501.9520, L100.0100, L500.4100, L501.9985 ####[facility] [address] [place], [address] Triglyceride [Mass/Vol] 77 mg/dL Normal [facility] Comment on above: Result Comment: The drugs N-Acetylcysteine and Metamizole may falsely depress this assay. Serum Triglycerides Reference Interval Normal <150 mg/dL Borderline high 150 - 199 mg/dL High 200 - 499 mg/dL Very High > or = 500 mg/dL Performed By: #### L 500.4050, L501.9520, L100.0100, L500.4100, L501.9985 ####[facility] [id number] [place], [address] Thyroid Stim Hormone (TSH)on 09-30-2023 TSH 1.21 uIU/mL Normal 0.358-3.74 [facility] Comment on above: Performed By: #### L 500.4050, L501.9520, L100.0100, L500.4100, L501.9985 ####[facility] [id number] [place], [address] Internal Medicine Office Vis iton 09-15-2023 Internal Medicine Office Visit [facility] [address] [place] [address] [place] [address] OFFICE VISIT Date of Service: 09/15/23 MR#: [id number] Acct: [id number] Name: GENET COBB Rep #: [id number] : 1995 Provider: DAVID camargo Age/Sex: 28/F Location: [facility] Status: Signed Intake Vital Signs 09/04/23 14:32 09/15/23 10:10 Height 5 ft 3 in 5 ft 3 in Weight: 201 lb 8 oz BMI 35.6 BP 112/74 Blood Pressure Location Lt brachial Position Sitting Respiration 16 Pulse 87 Pulse Source Monitor Temp 97.8 F Temp Source Temporal Pulse Oximetry (%) 97 Oxygen Delivery Method room air Intake Visit Reasons: CONSTIPATION Chief Complaint: constipation 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 Accompanied by: Self Is patient in pain?: No Allergies amoxicillin (Amoxicillin) Allergy (Verified 09/15/23 10:04) Hives propranolol HCl (From Inderal LA) Allergy (Verified 09/15/23 10:04) Hives Medications ???Medication ???Instructions ???Recorded ???Confirmed ???Type lamotrigine 200 mg tablet 150 mg PO BID 12/05/20 09/15/23 History (Lamictal) haloperidol 5 mg tablet 5 mg PO PRN PRN Anxiety 04/09/22 09/15/23 History lansoprazole 30 mg capsule,delayed 30 mg PO DAILY #90 caps 10/03/22 09/15/23 Rx release (Prevacid) levothyroxine 25 mcg tablet See Rx Instructions .Route 10/24/22 09/15/23 Rx .COMPLEX #30 tabs metformin 500 mg tablet 500 mg PO BID #180 tabs 02/20/23 09/15/23 Rx lisinopril 10 mg tablet 10 mg PO DAILY #90 tabs 03/09/23 09/15/23 Rx atomoxetine 40 mg capsule 40 mg PO QAM 06/26/23 09/15/23 History hydrocortisone 1 %-pramoxine 1 % 1 applic DE QHS PRN hemorrhoids 09/04/23 09/15/23 Rx rectal foam (Proctofoam HC) #10 grams bisacodyl 10 mg rectal suppository 10 mg DE DAILY PRN constipation 09/15/23 09/15/23 Rx (Dulcolax (bisacodyl)) #12 ea polyethylene glycol 3350 17 4 g PO DAILY 30 days #120 grams 09/15/23 09/15/23 Rx gram/dose oral powder [facility] History Subclinical hypothyroidism Hypothyroidism GERD (gastroesophageal reflux disease) Wears glasses Depression Marijuana use Diabetes History of ulceration Gastric reflux Smoker Shortness of breath on exertion History of echocardiogram History of pneumonia Chronic vomiting Gastric ulcer Type 2 diabetes mellitus Ulcer Diabetes Tobacco abuse Morbid obesity Hypertension Anxiety Surgical History Hx of cholecystectomy Hx of colonoscopy History of cholecystectomy Family History Unknown Diabetes Multiple sclerosis cousin Mother Diabetes Hypertension Grandmother Diabetes Hypertension Aunt Multiple sclerosis Social History Smoking Status: Current every day smoker tobacco type: cigarettes Tobacco: How many years used: 7 alcohol intake: never substance use type: former substance user Date of last use: 04/16/2020, marijuana and methamphetamine caffeine: Yes what type of physical activity do you participate in: walking seatbelt use: always do you feel safe at home: Yes additional social history: unemployed HPI [facility] Chief Complaint: constipation Details: GENET COBB, is a 28 F who presents to the office today for an acute visit for constipation. She was recently evaluated by [facility] ED on 09/04/2023 with c/o of anal/rectal pain and constipation x 3 days. 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 She received a soap suds enema and subsequently had a large BM with sx improvement.. She was prescribed Mg Citrate and Proctofoam HC PRN. She reports she did consume magnesium citrate 1 to 2 days after her emergency department visit without improvement in symptoms. She continues to have ongoing intermittent constipation and reports her last bowel movement was approximately 3 days ago. She does states that anal/rectal pain has resolved and she has intermittent lower abdominal cramping, none currently. She also reports she has intermittent vomiting over the past month but this is normal for her and she follows for GI for this. She believes constipation worsened over the past month but reports issues with constipation since childhood. She states she has had intermittent vomiting for several years. She denies hematemesis, fever, chills, dysuria, flank pain, melena, anal pressure or itching. States that she has tried increasing fiber in her diet, has tried a single dose of MiraLAX several months ago, Ex-Lax, and a suppository that her mother purchased [id number] and is unsure of what the name was. She reports she attempted to have a bowel movement soon after self administering the suppository. She states that she does not drin (more content not included)... Normal [facility] 09-07-2023 [facility] Office Visit ([facility] ) GENET COBB ([id number]) 1995 F Date Time Provider Department 09/07/23 9:30 AM TIM HAYES [facility] During your visit today, we recorded the following information about you: Temperature Pulse Respiration Blood pressure 98.4 degrees 86/minute 16/minute 132/70 Weight 90.5 kg Tim Hayes MD 09/07/2023 9:51 AM Signed Patient presents with: Headache: Bodyaches x3 days HPI: Feeling sick for 3 days. She was in the ER 3 days ago for constipation/abdominal pain and treated with Mag citrate and suppository. Positive symptoms: Body Aches, Malaise, Headache (throbbing, unsure of location, none this morning but did not have a headache initially yesterday morning either), Vomiting, Diarrhea, maybe cough but avoids because her body aches Negative symptoms: Sore throat, Nasal Congestion, Rhinorrhea, Fever, blood in vomit/stool, OTC: Tylenol MEDICATIONS: Current Outpatient Medications Medication Sig levothyroxine (SYNTHROID) 25 mcg tablet metFORMIN (GLUCOPHAGE) 500 mg tablet Take by mouth. lisinopril (ZESTRIL, PRINIVIL) 10 mg tablet Take 1 tablet by mouth once daily. lamoTRIgine (LAMICTAL) 200 mg tablet Take by mouth. busPIRone (BUSPAR) 10 mg tablet Take 1 tablet by mouth twice daily. Levonorgestrel-Ethinyl Estrad 0.1mg - 20mcg per tablet Take 1 tablet by mouth as directed. No current facility-administered medications for this visit. ALLERGIES: ALLERGIES Allergen Reactions Amoxicillin Hives Inderal [Propranolo* Hives VITALS: BP 132/70 Pulse 86 Temp 36.9 ?C (98.4 ?F) Resp 16 Wt 90.5 kg (199 lb 8.3 oz) LMP 02/23/2023 (Approximate) SpO2 97% BMI 34.25 kg/m? PHYSICAL EXAM: GEN: mildly ill appearing HEENT: PERRL, EOMI, conjunctiva clear Ears: canals clear. TMs without erythema, bulge, or effusion Sinuses: non-tender frontal sinus, non-tender maxillary sinuses Throat: moist mucous membranes, no erythema, no exudate Neck: supple, no thyromegaly, no lymphadenopathy HEART: regular rate and rhythm, no murmurs LUNGS: clear to auscultation, no wheezes or crackles, no increased WOB ABD: Soft, non-distended, generally uncomfortable but no focal tenderness, no masses ASSESSMENT/PLAN: 1. Viral syndrome - ICD9: 079.99, ICD10: B34.9 - suspect viral illness - Discussed supportive care treatment with rest, cold medicine, and analgesia. Tim Hayes MD Referring Provider: SELF [200] Allergies As of Date: 09/07/2023 Noted Allergy Reaction AMOXICILLIN 01/17/2008 4 - Hives INDERAL (PROPRANOLOL) 03/13/2011 4 - Hives Date Reviewed: 09/07/2023 Reviewed by: Kasie Louis - Fully Assessed Reason for Visit: Headache [52] Cmt: Bodyaches x3 days Primary Visit Diagnosis:Viral syndrome [B34.9] Prescriptions as of 09/07/2023 - levothyroxine (SYNTHROID) 25 mcg tablet - lamoTRIgine (LAMICTAL) 200 mg tablet Take by mouth. - metFORMIN (GLUCOPHAGE) 500 mg tablet Take by mouth. - lisinopril (ZESTRIL, PRINIVIL) 10 mg tablet Take 1 tablet by mouth once daily. - busPIRone (BUSPAR) 10 mg tablet Take 1 tablet by mouth twice daily. - Levonorgestrel-Ethinyl Estrad 0.1mg - 20mcg per tablet Take 1 tablet by mouth as directed. Problem List As Of Date 09/07/2023 Noted Resolved Elevated blood pressure [XPV2908] 01/07/2011 08/21/2011 Obesity (BMI 35.0-39.9 without comorbidity) [E6*01/07/2011 Headache [R51] 03/13/2011 Family history of hypertension [Z82.49] 07/23/2011 Hypertension [I10] 08/21/2011 Left ventricular hypertrophy [I51.7] 07/22/2012 Metabolic syndrome [E88.810] 07/22/2012 Dyslipidemia (high LDL; low HDL) [E78.5] 07/22/2012 Prediabetes [R73.03] 06/28/2018 Medications Discontinued During This Encounter Prescriptions - citalopram (CELEXA) 20 mg tablet (Discontinued) Reported on 03/26/2022 - COMPOUNDED PRESCRIPTION (Discontinued) Reported on 03/26/2022 - albuterol HFA (PROAIR HFA) 90 mcg/actuation inhaler (Discontinued) Reported on 03/26/2022 - medroxyPROGESTERone (PROVERA) 5 mg tablet (Discontinued) Reported on 03/17/2023 - mupirocin (BACTROBAN) 2 % ointment (Discontinued) Reported on 01/28/2020 - omeprazole (PRILOSEC) 40 mg capsule (Discontinued) Reported on 03/26/2022 - risperiDONE (RISPERDAL) 2 mg tablet (Discontinued) Reported on 01/28/2020 Level of Service: OFFICE/OUTPATIENT ESTABLISHED LOW MDM 20 MIN [24976] Encounter Status:Closed by TIM HAYES on 09/07/23 Normal [facility] Absolute lymphocyte countOrd ered By: Chaim Law on 04-29-2023 Lymphocytes Auto (Unsp spec) [#/Vol] 3.88 10*3/uL 0.83-4.51 [facility] Albumin Elph [Mass/Vol]Order ed By: Chaimjeanmarie Law on 04-29-2023 Albumin [Mass/Vol] 4.0 g/dL 2.9-4.4 [facility] Atypical perinuclear antineu trophil cytoplasmic antibodies measurementOrdered By: Chaim Law on 04-29-2023 Neutrophil cytoplasmic Ab.perinuclear.atypical IF (S) [Titer] <1:20 titer Neg:<1:20 [facility] Comment on above: The atypical pANCA p attern has been observed in asignificant percentage of patients with ulcerative colitis,primary sclerosing cholangitis and autoimmune hepatitis.Performed at: [facility] [id number] Director: Joe Marshall PhD, Phone: [phone] at: [facility] [id number] Director: Mahad Patel MD, Phone: [phone] Automated lymphocyte count a s percentage of total leukocytesOrdered By: Chaimannelise Law on 04-29-2023 Lymphocytes/100 WBC Auto (Unsp spec) 40.2 % 19-41 [facility] Basophil percentageOrdered B y: Chaimannelise Law on 04-29-2023 Basophils/100 WBC (Bld) 0.8 % 0-1 [facility] Eosinophils/100 WBC (Bld) 8.9 % 0-5 [facility] Hemoglobin (Bld) [Mass/Vol] 13.7 g/dL 12.0-15.0 [facility] Monocytes/100 WBC (Bld) 5.9 % 0-10 [facility] Neutrophils (Bld) [#/Vol] 4.2 10*3/uL 2.0-7.7 [facility] Neutrophils/100 WBC (Bld) 43.9 % 47-70 [facility] WBC (Bld) [#/Vol] 9.6 10*3/uL 4.4-11.0 [facility] Determination of erythrocyte mean corpuscular volume (MCV)Ordered By: Chaim Law on 04-29-2023 MCV (RBC) [Entitic vol] 90.0 fL 81-99 [facility] Erythrocyte distribution wid th ratioOrdered By: Chaim Law on 04-29-2023 Erythrocyte distribution width (RBC) [Ratio] 13.1 % 11.6-14.6 [facility] Erythrocyte distribution wid th standard deviationOrdered By: Chaim Law on 04-29-2023 Erythrocyte distribution width (RBC) [Entitic vol] 43.4 fL 35.1-43.9 [facility] Erythrocyte sedimentation ra teOrdered By: Chaim Law on 04-29-2023 ESR (Bld) [Velocity] 28 mm/h 0-30 [facility] Hematocrit Auto (Bld) [Volum e fraction]Ordered By: Chaim Law on 04-29-2023 Hematocrit (Bld) [Volume fraction] 42.3 % 37-47 [facility] Immature granulocytes/100 WB C Auto (Bld)Ordered By: Chaim Law on 04-29-2023 Immature granulocytes/100 WBC (Bld) 0.300 % 0.0-0.9 [facility] Comment on above: IG% - Immature Granu locytes (promyelocytes, myelocytes and metamyelocytes) > 1% indicates that a LEFT SHIFT is Present. Immunoglobulin M measurement Ordered By: Chaim Law on 04-29-2023 IgM (U) [Mass/Vol] 170 mg/dL 26-217 [facility] Interpretation of serum or p lasma protein pattern by immunofixation (narrative resultOrdered By: Chaim Law on 04-29-2023 Protein Fractions Immunofixation Gene [Interp] Not Observed g/dL Not Observed [facility] Laboratory - Chemistry and C hemistry - challengeOrdered By: Chaim Law on 04-29-2023 Cobalamin (Vitamin B12) [Mass/Vol] 428 pg/mL 211-911 [facility] Laboratory - Drug toxicology Ordered By: Chaim Law on 04-29-2023 Amphetamines Ql (U) Negative <1000 ng/mL [facility] Benzodiazepines Ql (U) Negative < 200 ng/mL [facility] Cannabinoids Screen Ql (U) Positive < 50 ng/mL [facility] Cocaine Ql (U) Negative < 300 ng/mL [facility] Opiates Ql (U) Negative < 300 ng/mL [facility] Laboratory - Hematology and Cell countsOrdered By: Chaim Law on 04-29-2023 MCH (RBC) [Entitic mass] 29.1 pg 27.0-32.0 [facility] MCHC (RBC) [Mass/Vol] 32.4 g/dL 32-36 [facility] Nucleated RBC/100 WBC (Bld) [Ratio] 0 % 0-5 [facility] Platelets (Bld) [#/Vol] 355 10*3/uL 150-450 [facility] No Panel InformationOrdered By: Chaim Law on 04-29-2023 Addendum Document Comment . [facility] Comment on above: Protein electrophore sis scan will follow via computer,mail, or pump servicer delivery. C-Reactive Protein Extended Range 4.43 mg/L 0.0-3.0 [facility] Comment on above: C-Reactive Protein ( CRP) provides useful information for thediagnosis, therapy and monitoring of inflammatory processesand associated diseases. For the evaluation of Relative Riskfor Cardiovascular Disease, a High Sensitivity CRP (HSCRP)should be ordered. Centromere B Antibody <0.2 AI 0.0-0.9 [facility] Endomysial IgA Antibody Negative Negative [facility] Free Triiodothyronine (T3) pg/dL 2.4 pg/mL 2.18-3.98 [facility] Immunoglobulin E 38 IU/mL 6-495 [facility] Immunoglobulin G4 27 mg/dL 2-96 [facility] VIOLETA-1 Antibody <0.2 AI 0.0-0.9 [facility] MDMA (Ecstasy) Screen Negative < 500 ng/mL [facility] PMO MANAGER Antibody <0.2 AI 0.0-0.9 [facility] Urine Barbiturates Screen Negative < 200 ng/mL [facility] Urine Drug Screen Comment [facility] Comment on above: CONFIRMATORY TESTING FOR ALL POSITIVE URINE DRUG SCREENRESULTS WILL ONLY BE SENT OUT UPON PHYSICIAN ORDER. VISTA Urine Drug Screen methods provide only preliminaryanalytical test results. A more specific alternate chemicalmethod must be used in order to obtain a confirmedanalytical result. Gas chromatography/mass spectrometery(GC/MS) is the preferred confirmatory method. Clinicalconsideration and professional judgement should be appliedto any drug of abuse test result, particularly whenpreliminary positive results are used. URINE TCA TESTING MUST BE ORDERED SEPARATELY. USE TESTMNEMONIC: [facility] Urine Methadone Screen Negative < 300 ng/mL [facility] Platelet mean volume Xavi-Ec ker (Bld) [Entitic vol]Ordered By: Chaim Law on 04-29-2023 Platelet mean volume (Bld) [Entitic vol] 9.7 fL 6.2-12.0 [facility] RBC Auto (Bld) [#/Vol]Ordere d By: Chaim Law on 04-29-2023 RBC (Bld) [#/Vol] 4.70 10*6/uL 4.2-5.4 [facility] SS-B IgG antibody assayOrder ed By: Chaim Law on 04-29-2023 Sjogrens syndrome-B extractable nuclear IgG Qn (S) < 0.2 AI 0.0-0.9 [facility] Serum DNA double strand anti body assay (units/volume)Ordered By: Chiam Law on 04-29-2023 DNA double strand Ab Qn (S) 1 [IU]/mL 0-9 [facility] Comment on above: Negative <5 Equivoca l 5 - 9 Positive >9 Serum IgG subclass 1 measure ment (mass/volume)Ordered By: Chaim Law on 04-29-2023 IgG subclass 1 (S) [Mass/Vol] 547 mg/dL 248-810 [facility] Serum IgG subclass 2 measure ment (mass/volume)Ordered By: Chaim Law on 04-29-2023 IgG subclass 2 (S) [Mass/Vol] 366 mg/dL 130-555 [facility] Serum IgG subclass 3 measure ment (mass/volume)Ordered By: Chaim Law on 04-29-2023 IgG subclass 3 (S) [Mass/Vol] 163 mg/dL 15-102 [facility] Serum Scl-70 antibody assay (units/volume)Ordered By: Chaim Law on 04-29-2023 SCL-70 extractable nuclear Ab Qn (S) <0.2 AI 0.0-0.9 [facility] Serum [id number] measu rement by electrophoresisOrdered By: Chaim Law on 04-29-2023 Alpha 1 globulin Elph [Mass/Vol] 0.2 g/dL 0.0-0.4 [facility] Alpha 1 globulin Elph [Mass/Vol] 0.8 g/dL 0.4-1.0 [facility] Serum classic neutrophil cyt oplasmic antibody assay (units/volume)Ordered By: Chaim Law on 04-29-2023 Neutrophil cytoplasmic Ab.classic Qn (S) <1:20 titer Neg:<1:20 [facility] Serum globulin measurement ( mass/volume)Ordered By: Chaim Law on 04-29-2023 Globulin (S) [Mass/Vol] 3.2 g/dL 2.2-3.9 [facility] Serum or plasma IgA measurem ent (mass/volume)Ordered By: Chaim Law on 04-29-2023 IgA [Mass/Vol] 351 mg/dL 87-352 [facility] Serum or plasma IgG measurem ent (mass/volume)Ordered By: Chaim Law on 04-29-2023 IgG [Mass/Vol] 1042 mg/dL 586-1602 [facility] IgG [Mass/Vol] Not Reportable [facility] Serum or plasma beta globuli n measurement by electrophoresis (mass/volume)Ordered By: Chaim Law on 04-29-2023 Beta globulin Elph [Mass/Vol] 1.1 g/dL 0.7-1.3 [facility] Serum or plasma gamma globul in measurement by electrophoresis (mass/volume)Ordered By: Chaim Law on 04-29-2023 Gamma globulin Elph [Mass/Vol] 1.1 g/dL 0.4-1.8 [facility] Serum or plasma immunoelectr ophoresis interpretation (nominal result)Ordered By: Chaim Law on 04-29-2023 Interpretation IEP [Interp] Comment . [facility] Comment on above: No monoclonality det ected. Serum or plasma thyroid stim ulating hormone (TSH) measurement (units/volume)Ordered By: Chaim Law on 04-29-2023 TSH Qn 2.16 uIU/mL 0.358-3.74 [facility] Serum perinuclear neutrophil cytoplasmic antibody titer by immunofluorescenceOrdered By: Chaim Law on 04-29-2023 Neutrophil cytoplasmic Ab.perinuclear IF (S) [Titer] <1:20 titer Neg:<1:20 [facility] Comment on above: The presence of posi tive fluorescence exhibiting P-ANCA orC-ANCA patterns alone is not specific for the diagnosis ofWegener's Granulomatosis (WG) or microscopic polyangiitis.Decisions about treatment should not be based solely onANCA IFA results. The International ANCA Group Consensusrecommends follow up testing of positive sera with both DE-3 and MPO-ANCA enzyme immunoassays. As many as 5% serumsamples are positive only by EIA. Ref. AM J Clin [id number];111:507-513. Serum tissue transglutaminas e IgA antibody assay (units/volume)Ordered By: Chaim Law on 04-29-2023 tTG IgA Qn (S) <2 U/mL 0-3 [facility] Comment on above: Negative 0 - 3 Weak Positive 4 - 10 Positive >10 Tissue Transglutaminase (tTG) has been identified as the endomysial antigen. Studies have demonstr- ated that endomysial IgA antibodies have over 99% specificity for gluten sensitive enteropathy. Manzanares antibody assayOrdered By: Chaim Law on 04-29-2023 Manzanares extractable nuclear Ab (S) [Titer] <0.2 AI 0.0-0.9 [facility] Thin prep Papanicolaou smear with manual screeningOrdered By: Chaim Law on 04-29-2023 Thin prep Papanicolaou smear with manual screening 1.04 ng/dL 0.76-1.46 [facility] Thin prep Papanicolaou smear with manual screening 1.3 0.7-1.7 [facility] Total protein bloodOrdered B y: Chaim Law on 04-29-2023 Protein [Mass/Vol] 7.2 g/dL 6.0-8.5 [facility] Urine phencyclidine (PCP) de tectionOrdered By: Chaim Law on 04-29-2023 Phencyclidine Ql (U) Negative < 25 ng/mL [facility] [facility] - Hematology and Cell countson 01-12-2023 HbA1c (Bld) [Mass fraction] 5.4 % 4.2-6.3 [facility] Laboratory - Chemistry and C hemistry - challengeOrdered By: Dr. Rodriges on 10-03-2022 Free T4 [Mass/Vol] 1.01 ng/dL 0.76-1.46 [facility] Laboratory - Hematology and Cell countson 10-03-2022 HbA1c (Bld) [Mass fraction] 5.7 % 4.2-6.3 [facility] No Panel InformationOrdered By: Dr. Rodriges on 10-03-2022 Thyroid Stimulating Hormone (TSH) 2.35 uIU/mL 0.358-3.74 [facility] Serum or plasma thyroperoxid ase antibody assay (units/volume)Ordered By: Dr. Rodriges on 10-03-2022 TPO Ab Qn [IU]/mL 0-34 [facility] Comment on above: Performed at: [address] Director: Joe Marshall PhD, Phone: [phone] Absolute lymphocyte countOrd ered By: Dr. Villafana on 08-15-2022 Lymphocytes Auto (Unsp spec) [#/Vol] 4.16 10*3/uL 0.83-4.51 [facility] Basophil percentageOrdered B y: Dr. Villafana on 08-15-2022 Basophils/100 WBC (Bld) 0.8 % 0-1 [facility] Chloride [Moles/Vol] 104 mmol/L 98-107 [facility] Eosinophils/100 WBC (Bld) 6.9 % 0-5 [facility] Glucose [Mass/Vol] 115 mg/dL 74-106 [facility] Comment on above: Fasting Glucose resu lt from 100 to 125 mg/dL suggests IMPAIRED HOMEOSTASIS per A.D.A. criteria. Neutrophils (Bld) [#/Vol] 7.0 10*3/uL 2.0-7.7 [facility] Neutrophils/100 WBC (Bld) 53.0 % 47-70 [facility] Potassium [Moles/Vol] 3.6 mmol/L 3.5-5.1 [facility] Sodium [Moles/Vol] 138 mmol/L 136-145 [facility] WBC (Bld) [#/Vol] 13.1 10*3/uL 4.4-11.0 [facility] Blood erythrocytes count (nu mber/volume)Ordered By: Dr. Villafana on 08-15-2022 RBC (Bld) [#/Vol] 5.02 10*6/uL 4.2-5.4 [facility] Blood hemoglobin measurement (mass/volume)Ordered By: Dr. Villafana on 08-15-2022 Hemoglobin (Bld) [Mass/Vol] 14.5 g/dL 12.0-15.0 [facility] Blood lymphocytes/100 leukoc ytesOrdered By: Dr. Villafana on 08-15-2022 Lymphocytes/100 WBC (Bld) 31.8 % 19-41 [facility] Blood monocytes/100 leukocyt esOrdered By: Dr. Villafana on 08-15-2022 Monocytes/100 WBC (Bld) 7.1 % 0-10 [facility] Blood platelet mean volumeOr dered By: Dr. Villafana on 08-15-2022 Platelet mean volume (Bld) [Entitic vol] 9.6 fL 6.2-12.0 [facility] Determination of erythrocyte mean corpuscular volume (MCV)Ordered By: Dr. Villafana on 08-15-2022 MCV (RBC) [Entitic vol] 87.8 fL 81-99 [facility] Hematocrit Auto (Bld) [Volum e fraction]Ordered By: Dr. Villafana on 08-15-2022 Hematocrit (Bld) [Volume fraction] 44.1 % 37-47 [facility] Laboratory - Chemistry and C hemistry - challengeOrdered By: Dr. Villafana on 08-15-2022 Free T4 [Mass/Vol] 1.18 ng/dL 0.76-1.46 [facility] CO2 [Moles/Vol] 25.0 mmol/L 21.0-32.0 [facility] Urea nitrogen/Creatinine [Mass ratio] 9.3 mg/mg 10-20 [facility] Laboratory - Hematology and Cell countsOrdered By: Dr. Villafana on 08-15-2022 Erythrocyte distribution width (RBC) [Entitic vol] 43.8 fL 35.1-43.9 [facility] Erythrocyte distribution width (RBC) [Ratio] 13.7 % 11.6-14.6 [facility] Immature granulocytes/100 WBC (Bld) 0.400 % 0.0-0.9 [facility] Comment on above: IG% - Immature Granu locytes (promyelocytes, myelocytes and metamyelocytes) > 1% indicates that a LEFT SHIFT is Present. MCH (RBC) [Entitic mass] 28.9 pg 27.0-32.0 [facility] Nucleated RBC/100 WBC (Bld) [Ratio] 0 % 0-5 [facility] MCHC Auto (RBC) [Mass/Vol]Or dered By: Dr. Villafana on 08-15-2022 MCHC (RBC) [Mass/Vol] 32.9 g/dL 32-36 [facility] No Panel InformationOrdered By: Dr. Villafana on 08-15-2022 Free Triiodothyronine (T3) pg/dL 3.4 pg/mL 2.18-3.98 [facility] Estimated Creatinine Clearance Calc 72.70 ml/min [facility] Estimated GFR (MDRD) Amer 89 mL/min >60 [facility] Comment on above: GFR Calc Estimated GFR (MDRD) Non-Af Amer 74 mL/min >60 [facility] Comment on above: Non- GFR Calc Thyroid Stimulating Hormone (TSH) 8.93 uIU/mL 0.358-3.74 [facility] Platelets bldOrdered By: Dr. Villafana on 08-15-2022 Platelets (Bld) [#/Vol] 374 10*3/uL 150-450 [facility] Serum or plasma calcium luis urement (mass/volume)Ordered By: Dr. Villafana on 08-15-2022 Calcium [Mass/Vol] 9.2 mg/dL 8.5-10.1 [facility] Serum or plasma creatinine m easurement (mass/volume)Ordered By: Dr. Villafana on 08-15-2022 Creatinine [Mass/Vol] 0.97 mg/dL 0.55-1.02 [facility] Comment on above: The validity of the calculated GFR & GFRAA in patients over 70 years has not been determined. Clinical correlation is essential. Serum or plasma urea nitroge n measurement (mass/volume)Ordered By: Dr. Villafana on 08-15-2022 Urea nitrogen [Mass/Vol] 9 mg/dL 7-18 [facility] Thin prep Papanicolaou smear with manual screeningOrdered By: Dr. Villafana on 08-15-2022 Thin prep Papanicolaou smear with manual screening 9 - [facility] Laboratory - Hematology and Cell countson 07-02-2022 HbA1c (Bld) [Mass fraction] 5.6 % 4.2-6.3 [facility] Laboratory - Hematology and Cell countson 04-02-2022 HbA1c (Bld) [Mass fraction] 6.1 % 4.2-6.3 [facility] Work Phone: .Auto Diffon 03-31-2022 Basophil, Absolute 0.0 10 3/mcL Normal 0.0-0.2 [facility] ([place]) Comment on above: Performed By: #### B MP, GFR #### [address] [address] Basophils/100 WBC (Bld) 0.2 % Normal 0.0-2.5 A [facility] ([place]) Comment on above: Performed By: #### B MP, GFR #### [address] [address] Eosinophil, Absolute 0.0 10 3/mcL Normal 0.0-0.4 [facility] ([place]) Comment on above: Performed By: #### B MP, GFR #### [address] [address] Eosinophils/100 WBC (Bld) 0.2 % Normal 0.0-7.0 [facility] ([place]) Comment on above: Performed By: #### B MP, GFR #### [address] [address] Lymphocyte, Absolute 4.8 10 3/mcL High 0.8-3.9 [facility] ([place]) Comment on above: Performed By: #### B MP, GFR #### [address] [address] Lymphocytes/100 WBC (Bld) 42.7 % Normal 10.0-50.0 [facility] ([place]) Comment on above: Performed By: #### B MP, GFR #### [address] [address] Monocyte, Absolute 0.9 10 3/mcL Normal 0.2-1.0 [facility] ([place]) Comment on above: Performed By: #### B MP, GFR #### [address] [address] Monocytes/100 WBC (Bld) 8.4 % Normal 1.7-13.0 [facility] ([place]) Comment on above: Performed By: #### B MP, GFR #### [address] [address] Neutrophils/100 WBC (Bld) 48.5 % Normal 37.0-80.0 [facility] ([place]) Comment on above: Performed By: #### B MP, GFR #### [address] [address] .GFRon 03-31-2022 GFR 104 ml/min/1.73sqm Normal [facility] ([place]) Comment on above: Result Comment: GFR Population mean for , Non- Americans Ages 20-29 = 116 mL/min/1.73 sq.m. Ages 30-39 = 107 mL/min/1.73 sq.m. Ages 40-49 = 99 mL/min/1.73 sq.m. Ages 50-59 = 93 mL/min/1.73 sq.m. Ages 60-69 = 85 mL/min/1.73 sq.m. Ages 70+ = 75 mL/min/1.73 sq.m. Chronic Kidney Disease: Less than 60 mL/min/1.73 square meters End Stage Renal Disease: Less than 15 mL/min/1.73 square meters Performed By: #### B MP, GFR #### [address] [address] GFR Non- 85 ml/min/1.73sqm Normal [facility] ([place]) Comment on above: Result Comment: GFR Population mean for , Non- Americans Ages 20-29 = 116 mL/min/1.73 sq.m. Ages 30-39 = 107 mL/min/1.73 sq.m. Ages 40-49 = 99 mL/min/1.73 sq.m. Ages 50-59 = 93 mL/min/1.73 sq.m. Ages 60-69 = 85 mL/min/1.73 sq.m. Ages 70+ = 75 mL/min/1.73 sq.m. Chronic Kidney Disease: Less than 60 mL/min/1.73 square meters End Stage Renal Disease: Less than 15 mL/min/1.73 square meters Performed By: #### B MP, GFR #### [address] [address] .NEUABSon 03-31-2022 Neutrophil, Absolute 5.5 10 3/mcL Normal 2.9-6.2 [facility] ([place]) Comment on above: Performed By: #### B MP, GFR #### [address] [address] BMPon 03-31-2022 BUN/Creatinine Ratio 10 ratio Normal 7-27 [facility] ([place]) Comment on above: Order Comment: Accid ently logged in. Performed By: #### B MP, GFR #### [address] [address] Calcium [Mass/Vol] 8.7 mg/dL Normal 8.4-10.2 [facility] ([place]) Comment on above: Order Comment: Accid ently logged in. Performed By: #### B MP, GFR #### [address] [address] Chloride [Moles/Vol] 102 mmol/L Normal 98-107 [facility] ([place]) Comment on above: Order Comment: Accid ently logged in. Performed By: #### B MP, GFR #### [address] [address] CO2 [Moles/Vol] 25 mmol/L Normal 22-29 [facility] ([place]) Comment on above: Order Comment: Accid ently logged in. Performed By: #### B MP, GFR #### [address] [address] Creatinine [Mass/Vol] 0.81 mg/dL Normal 0.55-1.02 [facility] ([place]) Comment on above: Order Comment: Accid ently logged in. Performed By: #### B MP, GFR #### [address] [address] Electrolyte Balance 13.0 mEq/L Normal 4.0-15.0 [facility] ([place]) Comment on above: Order Comment: Accid ently logged in. Performed By: #### B MP, GFR #### [address] [address] Glucose [Mass/Vol] 89 mg/dL Normal 70-105 [facility] [place] Comment on above: Order Comment: Accid ently logged in. Performed By: #### B MP, GFR #### [address] [address] Potassium [Moles/Vol] 3.3 mmol/L Low 3.5-5.1 [facility] ([place]) Comment on above: Order Comment: Accid ently logged in. Performed By: #### B MP, GFR #### [address] [address] Sodium [Moles/Vol] 140 mmol/L Normal 136-145 [facility] [place] Comment on above: Order Comment: Accid ently logged in. Performed By: #### B MP, GFR #### [address] [address] Urea nitrogen [Mass/Vol] 8 mg/dL Normal 7-18 [facility] ([place]) Comment on above: Order Comment: Accid ently logged in. Performed By: #### B MP, GFR #### [address] [address] CBCon 03-31-2022 Erythrocyte distribution width (RBC) [Ratio] 13.3 % Normal 11.5-14.5 [facility] ([place]) Comment on above: Performed By: #### B MP, GFR #### [address] [address] Hematocrit (Bld) [Volume fraction] 40.7 % Normal 37.0-47.0 [facility] ([place]) Comment on above: Performed By: #### B MP, GFR #### [address] [address] Hgb 13.6 G/dL Normal 12.0-16.0 [facility] ([place]) Comment on above: Performed By: #### B MP, GFR #### [address] [address] MCH (RBC) [Entitic mass] 28.4 pg Normal 27.0-31.2 [facility] ([place]) Comment on above: Performed By: #### B MP, GFR #### [address] [address] MCHC 33.4 G/dL Normal 33.0-37.0 [facility] ([place]) Comment on above: Performed By: #### B MP, GFR #### [address] [address] MCV (RBC) [Entitic vol] 84.9 fL Normal 80.0-94.0 A [facility] ([place]) Comment on above: Performed By: #### B MP, GFR #### [address] [address] Platelet 360 10 3/mcL Normal 130-400 [facility] ([place]) Comment on above: Performed By: #### B MP, GFR #### [address] [address] Platelet mean volume (Bld) [Entitic vol] 8.1 fL Normal 7.4-10.4 [facility] ([place]) Comment on above: Performed By: #### B MP, GFR #### [address] [address] RBC 4.79 10 6/mcL Normal 4.20-5.40 [facility] ([place]) Comment on above: Performed By: #### B MP, GFR #### [address] [place], [place] [address] WBC 11.3 10 3/mcL High 4.6-10.8 [facility] ([place]) Comment on above: Performed By: #### B MP, GFR #### [address] [place], [place] [address] LABORATORYOrdered By: Ravin Frye on 03-31-2022 Basophil, Absolute 0.0 103/mcL Invalid Interpretation Code 0.0 - 0.2 10^3/mcL AO Workflow SS Basophils/100 WBC (Bld) 0.2 % Invalid Interpretation Code 0.0 - 2.5 % AO Workflow SS Eosinophil, Absolute 0.0 103/mcL Invalid Interpretation Code 0.0 - 0.4 10^3/mcL AO Workflow SS Eosinophils/100 WBC (Bld) 0.2 % Invalid Interpretation Code 0.0 - 7.0 % AO Workflow SS Erythrocyte distribution width (RBC) [Ratio] 13.3 % Invalid Interpretation Code 11.5 - 14.5 % AO Workflow SS Hematocrit (Bld) [Volume fraction] 40.7 % Invalid Interpretation Code 37.0 - 47.0 % AO Workflow SS Hemoglobin (Bld) [Mass/Vol] 13.6 G/dL Invalid Interpretation Code 12.0 - 16.0 G/dL AO Workflow SS Lymphocyte, Absolute 4.8 103/mcL Invalid Interpretation Code 0.8 - 3.9 10^3/mcL AO Workflow SS Lymphocytes/100 WBC (Bld) 42.7 % Invalid Interpretation Code 10.0 - 50.0 % AO Workflow SS MCH (RBC) [Entitic mass] 28.4 pg Invalid Interpretation Code 27.0 - 31.2 pg AO Workflow SS MCHC 33.4 G/dL Invalid Interpretation Code 33.0 - 37.0 G/dL AO Workflow SS MCV (RBC) [Entitic vol] 84.9 fL Invalid Interpretation Code 80.0 - 94.0 fL AO Workflow SS Monocyte, Absolute 0.9 103/mcL Invalid Interpretation Code 0.2 - 1.0 10^3/mcL AO Workflow SS Monocytes/100 WBC (Bld) 8.4 % Invalid Interpretation Code 1.7 - 13.0 % AO Workflow SS Neutrophil, Absolute 5.5 103/mcL Invalid Interpretation Code 2.9 - 6.2 10^3/mcL AO Workflow SS Neutrophils/100 WBC (Bld) 48.5 % Invalid Interpretation Code 37.0 - 80.0 % AO Workflow SS Platelet mean volume (Bld) [Entitic vol] 8.1 fL Invalid Interpretation Code 7.4 - 10.4 fL AO Workflow SS Platelets (Bld) [#/Vol] 360 103/mcL Invalid Interpretation Code 130 - 400 10^3/mcL AO Workflow SS RBC (Bld) [#/Vol] 4.79 106/mcL Invalid Interpretation Code 4.20 - 5.40 10^6/mcL AO Workflow SS WBC (Bld) [#/Vol] 11.3 103/mcL Invalid Interpretation Code 4.6 - 10.8 10^3/mcL AO Workflow SS LABORATORYOrdered By: SYSTEM SYSTEM on 03-31-2022 Calcium [Mass/Vol] 8.7 mg/dL Invalid Interpretation Code 8.4 - 10.2 mg/dL AO ADM SS Chloride [Moles/Vol] 102 mmol/L Invalid Interpretation Code 98 - 107 mmol/L AO ADM SS CO2 [Moles/Vol] 25 mmol/L Invalid Interpretation Code 22 - 29 mmol/L AO ADM SS Creatinine [Mass/Vol] 0.81 mg/dL Invalid Interpretation Code 0.55 - 1.02 mg/dL AO ADM SS Electrolyte Balance 13.0 mEq/L Invalid Interpretation Code 4.0 - 15.0 mEq/L AO ADM SS GFR 104 ml/min/1.73sqm Invalid Interpretation Code AO Chemistry S GFR Non- 85 ml/min/1.73sqm Invalid Interpretation Code AO Chemistry S Glucose [Mass/Vol] 89 mg/dL Invalid Interpretation Code 70 - 105 mg/dL AO ADM SS Magnesium [Mass/Vol] 2.0 mg/dL Invalid Interpretation Code 1.8 - 2.4 mg/dL AO ADM SS Potassium [Moles/Vol] 3.3 mmol/L Invalid Interpretation Code 3.5 - 5.1 mmol/L AO ADM SS Sodium [Moles/Vol] 140 mmol/L Invalid Interpretation Code 136 - 145 mmol/L AO ADM SS Urea nitrogen [Mass/Vol] 8 mg/dL Invalid Interpretation Code 7 - 18 mg/dL AO ADM SS Urea nitrogen/Creatinine [Mass ratio] 10 ratio Invalid Interpretation Code 7 - 27 ratio AO ADM SS LABORATORYOrdered By: Humza Ryan on 03-31-2022 Blood Glucose Testing Reason Routine (03/31/22 7:44 AM) [facility] Work Phone: Glucose [Mass/Vol] 96 mg/dL Invalid Interpretation Code 70 - 110 mg/dL [facility] Work Phone: MGon 03-31-2022 Magnesium [Mass/Vol] 2.0 mg/dL Normal 1.8-2.4 [facility] ([place]) Comment on above: Performed By: #### B MP, GFR #### [address] [place], [place] [address] MYCOon 03-31-2022 Mycoplasma IgG Positive Normal [facility] ([place]) Comment on above: Result Comment: INTE RPRETATION OF MYCOPLASMA IgG BY EIA: Negative: No detectable M. pneumoniae IgG antibody. Positive: Mycoplasma pneumoniae IgG antibody Detected. Equivocal: Equivocal for IgG antibodies to Mycoplasma pneumoniae. Suggest repeat testing in 10-14 days. Performed By: #### B MP, GFR #### [address] [address] [address] ANGIOGRAPHY CHEST W/CONTR Jony 03-30-2022 CT ANGIOGRAPHY CHEST W/CONTRAST ORIGINAL EXAMINATION: CTA OF THE CHEST03/30/2022 11:36 [...] 03/30/2022 12:05:01 PM Ordering Provider: MAHENDRA FAJARDO [facility]) LABORATORYOrdered By: Thomas Acevedo on 03-30-2022 Blood Glucose Testing Reason Routine (03/30/22 9:12 PM) [facility] Work Phone: Glucose [Mass/Vol] 110 mg/dL Invalid Interpretation Code 70 - 110 mg/dL [facility] Work Phone: LABORATORYOrdered By: Mary Kay Dickson on 03-30-2022 Blood Glucose Testing Reason Routine (03/30/22 4:52 PM) [facility] Work Phone: Glucose [Mass/Vol] 160 mg/dL Invalid Interpretation Code 70 - 110 mg/dL [facility] Work Phone: MYCOon 03-30-2022 Mycoplasma IgM Negative [facility]) Comment on above: Result Comment: INTE RPRETATION OF MYCOPLASMA IgM: Negative: IgM to M. pneumoniae Absent, or at levels below the assay limit of detection. Positive: IgM to M. pneumoniae Present. Invalid: Test results are invalid due to invalid internal control. Assay was performed in duplicate. Repeat testing is suggested if clinically indicated. Performed By: #### B MP, GFR #### [address] [place], [place] [address] .Auto Diffon 03-29-2022 Basophil, Absolute 0.1 10 3/mcL Normal 0.0-0.2 [facility] ([place]) Comment on above: Performed By: #### B MP, GFR #### [address] [place], [place] [address] Basophils/100 WBC (Bld) 0.6 % Normal 0.0-2.5 A [facility] ([place]) Comment on above: Performed By: #### B MP, GFR #### [address] [address] Eosinophil, Absolute 0.0 10 3/mcL Normal 0.0-0.4 [facility] ([place]) Comment on above: Performed By: #### B MP, GFR #### [address] [address] Eosinophils/100 WBC (Bld) 0.0 % Normal 0.0-7.0 [facility] ([place]) Comment on above: Performed By: #### B MP, GFR #### [address] [address] Lymphocyte, Absolute 1.7 10 3/mcL Normal 0.8-3.9 [facility] ([place]) Comment on above: Performed By: #### B MP, GFR #### [address] [address] Lymphocytes/100 WBC (Bld) 13.1 % Normal 10.0-50.0 [facility] ([place]) Comment on above: Performed By: #### B MP, GFR #### [address] [address] Monocyte, Absolute 0.6 10 3/mcL Normal 0.2-1.0 [facility] ([place]) Comment on above: Performed By: #### B MP, GFR #### [address] [address] Monocytes/100 WBC (Bld) 5.1 % Normal 1.7-13.0 A [facility] ([place]) Comment on above: Performed By: #### B MP, GFR #### [address] [address] Neutrophils/100 WBC (Bld) 81.2 % High 37.0-80.0 [facility] ([place]) Comment on above: Performed By: #### B MP, GFR #### [address] [address] .GFRon 03-29-2022 GFR Non- 101 ml/min/1.73sqm Normal [facility] ([place]) Comment on above: Result Comment: GFR Population mean for , Non- Americans Ages 20-29 = 116 mL/min/1.73 sq.m. Ages 30-39 = 107 mL/min/1.73 sq.m. Ages 40-49 = 99 mL/min/1.73 sq.m. Ages 50-59 = 93 mL/min/1.73 sq.m. Ages 60-69 = 85 mL/min/1.73 sq.m. Ages 70+ = 75 mL/min/1.73 sq.m. Chronic Kidney Disease: Less than 60 mL/min/1.73 square meters End Stage Renal Disease: Less than 15 mL/min/1.73 square meters Performed By: #### B MP, GFR #### [address] [address] GFR 123 ml/min/1.73sqm Normal [facility] ([place]) Comment on above: Result Comment: GFR Population mean for , Non- Americans Ages 20-29 = 116 mL/min/1.73 sq.m. Ages 30-39 = 107 mL/min/1.73 sq.m. Ages 40-49 = 99 mL/min/1.73 sq.m. Ages 50-59 = 93 mL/min/1.73 sq.m. Ages 60-69 = 85 mL/min/1.73 sq.m. Ages 70+ = 75 mL/min/1.73 sq.m. Chronic Kidney Disease: Less than 60 mL/min/1.73 square meters End Stage Renal Disease: Less than 15 mL/min/1.73 square meters Performed By: #### B MP, GFR #### [address] [address] .NEUABSon 03-29-2022 Neutrophil, Absolute 10.3 10 3/mcL High 2.9-6.2 A [facility] ([place]) Comment on above: Performed By: #### B MP, GFR #### [address] [address] BMPon 03-29-2022 BUN/Creatinine Ratio 10 ratio Normal 7-27 [facility] ([place]) Comment on above: Performed By: #### B MP, GFR #### [address] [address] Calcium [Mass/Vol] 8.6 mg/dL Normal 8.4-10.2 [facility] [place] Comment on above: Performed By: #### B MP, GFR #### [address] [address] Chloride [Moles/Vol] 106 mmol/L Normal 98-107 [facility] ([place]) Comment on above: Performed By: #### B MP, GFR #### [address] [address] CO2 [Moles/Vol] 24 mmol/L Normal 22-29 [facility] ([place]) Comment on above: Performed By: #### B MP, GFR #### [address] [address] Creatinine [Mass/Vol] 0.70 mg/dL Normal 0.55-1.02 [facility] ([place]) Comment on above: Performed By: #### B MP, GFR #### [address] [address] Electrolyte Balance 12.0 mEq/L Normal 4.0-15.0 [facility] ([place]) Comment on above: Performed By: #### B MP, GFR #### [address] [address] Glucose [Mass/Vol] 143 mg/dL High 70-105 [facility] [place] Comment on above: Performed By: #### B MP, GFR #### [address] [address] Potassium [Moles/Vol] 3.6 mmol/L Normal 3.5-5.1 [facility] ([place]) Comment on above: Performed By: #### B MP, GFR #### [address] [address] Sodium [Moles/Vol] 142 mmol/L Normal 136-145 [facility] [place] Comment on above: Performed By: #### B MP, GFR #### [address] [address] Urea nitrogen [Mass/Vol] 7 mg/dL Normal 7-18 [facility] ([place] Comment on above: Performed By: #### B MP, GFR #### [address] [address] CBCon 03-29-2022 Erythrocyte distribution width (RBC) [Ratio] 13.6 % Normal 11.5-14.5 [facility] ([place]) Comment on above: Performed By: #### B MP, GFR #### [address] [address] Hematocrit (Bld) [Volume fraction] 40.8 % Normal 37.0-47.0 [facility] ([place]) Comment on above: Performed By: #### B MP, GFR #### [address] [address] Hgb 13.7 G/dL Normal 12.0-16.0 [facility] ([place]) Comment on above: Performed By: #### B MP, GFR #### [address] [address] MCH (RBC) [Entitic mass] 28.5 pg Normal 27.0-31.2 [facility] ([place]) Comment on above: Performed By: #### B MP, GFR #### [address] [address] MCHC 33.7 G/dL Normal 33.0-37.0 [facility] ([place]) Comment on above: Performed By: #### B MP, GFR #### [address] [address] MCV (RBC) [Entitic vol] 84.6 fL Normal 80.0-94.0 A [facility] ([place]) Comment on above: Performed By: #### B MP, GFR #### [address] [address] Platelet 325 10 3/mcL Normal 130-400 [facility] ([place]) Comment on above: Performed By: #### B MP, GFR #### [address] [address] Platelet mean volume (Bld) [Entitic vol] 8.1 fL Normal 7.4-10.4 [facility] ([place]) Comment on above: Performed By: #### B MP, GFR #### [address] [address] RBC 4.82 10 6/mcL Normal 4.20-5.40 [facility] ([place]) Comment on above: Performed By: #### B MP, GFR #### [address] [address] WBC 12.7 10 3/mcL High 4.6-10.8 [facility] ([place]) Comment on above: Performed By: #### B MP, GFR #### [address] [address] LABORATORYOrdered By: Graciela Peterson on 03-29-2022 Basophil, Absolute 0.1 103/mcL Invalid Interpretation Code 0.0 - 0.2 10^3/mcL AO Workflow SS Basophils/100 WBC (Bld) 0.6 % Invalid Interpretation Code 0.0 - 2.5 % AO Workflow SS Eosinophil, Absolute 0.0 103/mcL Invalid Interpretation Code 0.0 - 0.4 10^3/mcL AO Workflow SS Eosinophils/100 WBC (Bld) 0.0 % Invalid Interpretation Code 0.0 - 7.0 % AO Workflow SS Erythrocyte distribution width (RBC) [Ratio] 13.6 % Invalid Interpretation Code 11.5 - 14.5 % AO Workflow SS Hematocrit (Bld) [Volume fraction] 40.8 % Invalid Interpretation Code 37.0 - 47.0 % AO Workflow SS Hemoglobin (Bld) [Mass/Vol] 13.7 G/dL Invalid Interpretation Code 12.0 - 16.0 G/dL AO Workflow SS Lymphocyte, Absolute 1.7 103/mcL Invalid Interpretation Code 0.8 - 3.9 10^3/mcL AO Workflow SS Lymphocytes/100 WBC (Bld) 13.1 % Invalid Interpretation Code 10.0 - 50.0 % AO Workflow SS MCH (RBC) [Entitic mass] 28.5 pg Invalid Interpretation Code 27.0 - 31.2 pg AO Workflow SS MCHC 33.7 G/dL Invalid Interpretation Code 33.0 - 37.0 G/dL AO Workflow SS MCV (RBC) [Entitic vol] 84.6 fL Invalid Interpretation Code 80.0 - 94.0 fL AO Workflow SS Monocyte, Absolute 0.6 103/mcL Invalid Interpretation Code 0.2 - 1.0 10^3/mcL AO Workflow SS Monocytes/100 WBC (Bld) 5.1 % Invalid Interpretation Code 1.7 - 13.0 % AO Workflow SS Neutrophil, Absolute 10.3 103/mcL Invalid Interpretation Code 2.9 - 6.2 10^3/mcL AO Workflow SS Neutrophils/100 WBC (Bld) 81.2 % Invalid Interpretation Code 37.0 - 80.0 % AO Workflow SS Platelet mean volume (Bld) [Entitic vol] 8.1 fL Invalid Interpretation Code 7.4 - 10.4 fL AO Workflow SS Platelets (Bld) [#/Vol] 325 103/mcL Invalid Interpretation Code 130 - 400 10^3/mcL AO Workflow SS RBC (Bld) [#/Vol] 4.82 106/mcL Invalid Interpretation Code 4.20 - 5.40 10^6/mcL AO Workflow SS WBC (Bld) [#/Vol] 12.7 103/mcL Invalid Interpretation Code 4.6 - 10.8 10^3/mcL AO Workflow SS LABORATORYOrdered By: SYSTEM SYSTEM on 03-29-2022 Calcium [Mass/Vol] 8.6 mg/dL Invalid Interpretation Code 8.4 - 10.2 mg/dL AO ADM SS Chloride [Moles/Vol] 106 mmol/L Invalid Interpretation Code 98 - 107 mmol/L AO ADM SS CO2 [Moles/Vol] 24 mmol/L Invalid Interpretation Code 22 - 29 mmol/L AO ADM SS Creatinine [Mass/Vol] 0.70 mg/dL Invalid Interpretation Code 0.55 - 1.02 mg/dL AO ADM SS Electrolyte Balance 12.0 mEq/L Invalid Interpretation Code 4.0 - 15.0 mEq/L AO ADM SS GFR 123 ml/min/1.73sqm Invalid Interpretation Code AO Chemistry S GFR Non- 101 ml/min/1.73sqm Invalid Interpretation Code AO Chemistry S Glucose [Mass/Vol] 143 mg/dL Invalid Interpretation Code 70 - 105 mg/dL AO ADM SS Magnesium [Mass/Vol] 2.0 mg/dL Invalid Interpretation Code 1.8 - 2.4 mg/dL AO ADM SS Potassium [Moles/Vol] 3.6 mmol/L Invalid Interpretation Code 3.5 - 5.1 mmol/L AO ADM SS Sodium [Moles/Vol] 142 mmol/L Invalid Interpretation Code 136 - 145 mmol/L AO ADM SS Urea nitrogen [Mass/Vol] 7 mg/dL Invalid Interpretation Code 7 - 18 mg/dL AO ADM SS Urea nitrogen/Creatinine [Mass ratio] 10 ratio Invalid Interpretation Code 7 - 27 ratio AO ADM SS LABORATORYOrdered By: Hany Molina on 03-29-2022 M. pneumoniae IgM IA Ql (S) Negative (03/29/22 12:56 AM) Invalid Interpretation Code AH Man Viro/Sero SS LABORATORYOrdered By: Abhay Segal on 03-29-2022 Mycoplasma IgG Positive *NA* (03/29/22 12:56 AM) Invalid Interpretation Code AH Auto Viro/Sero SS MGon 03-29-2022 Magnesium [Mass/Vol] 2.0 mg/dL Normal 1.8-2.4 [facility] ([place]) Comment on above: Performed By: #### B MP, GFR #### [address] [address] No Panel Informationon 03-29 Legionella Urine Ag Presumptive negative for L. pneumophila serogroup 1 antigen in urine, suggesting no recent or current infection. Legionnaire's disease cannot be ruled out since other serogroups and species may also cause disease. [facility] Work Phone: .Auto Diffon 03-28-2022 Basophil, Absolute 0.0 10 3/mcL Normal 0.0-0.2 [facility] ([place]) Comment on above: Performed By: #### B MP, GFR #### [address] [address] Basophils/100 WBC (Bld) 0.4 % Normal 0.0-2.5 A [facility] ([place]) Comment on above: Performed By: #### B MP, GFR #### [address] [address] Eosinophil, Absolute 0.0 10 3/mcL Normal 0.0-0.4 [facility] ([place]) Comment on above: Performed By: #### B MP, GFR #### [address] [address] Eosinophils/100 WBC (Bld) 0.1 % Normal 0.0-7.0 [facility] ([place]) Comment on above: Performed By: #### B MP, GFR #### [address] [address] Lymphocyte, Absolute 1.7 10 3/mcL Normal 0.8-3.9 [facility] ([place]) Comment on above: Performed By: #### B MP, GFR #### [address] [address] Lymphocytes/100 WBC (Bld) 16.9 % Normal 10.0-50.0 [facility] ([place]) Comment on above: Performed By: #### B MP, GFR #### [address] [address] Monocyte, Absolute 0.8 10 3/mcL Normal 0.2-1.0 [facility] ([place]) Comment on above: Performed By: #### B MP, GFR #### [address] [address] Monocytes/100 WBC (Bld) 7.5 % Normal 1.7-13.0 A [facility] ([place]) Comment on above: Performed By: #### B MP, GFR #### [address] [address] Neutrophils/100 WBC (Bld) 75.1 % Normal 37.0-80.0 [facility] ([place]) Comment on above: Performed By: #### B MP, GFR #### [address] [address] .GFRon 03-28-2022 GFR 87 ml/min/1.73sqm Normal [facility] ([place]) Comment on above: Result Comment: GFR Population mean for , Non- Americans Ages 20-29 = 116 mL/min/1.73 sq.m. Ages 30-39 = 107 mL/min/1.73 sq.m. Ages 40-49 = 99 mL/min/1.73 sq.m. Ages 50-59 = 93 mL/min/1.73 sq.m. Ages 60-69 = 85 mL/min/1.73 sq.m. Ages 70+ = 75 mL/min/1.73 sq.m. Chronic Kidney Disease: Less than 60 mL/min/1.73 square meters End Stage Renal Disease: Less than 15 mL/min/1.73 square meters Performed By: #### B MP, GFR #### [address] [address] GFR Non- 72 ml/min/1.73sqm Normal [facility] ([place]) Comment on above: Result Comment: GFR Population mean for , Non- Americans Ages 20-29 = 116 mL/min/1.73 sq.m. Ages 30-39 = 107 mL/min/1.73 sq.m. Ages 40-49 = 99 mL/min/1.73 sq.m. Ages 50-59 = 93 mL/min/1.73 sq.m. Ages 60-69 = 85 mL/min/1.73 sq.m. Ages 70+ = 75 mL/min/1.73 sq.m. Chronic Kidney Disease: Less than 60 mL/min/1.73 square meters End Stage Renal Disease: Less than 15 mL/min/1.73 square meters Performed By: #### B MP, GFR #### [address] [address] .MDWon 03-28-2022 Monocyte Distribution Width 22.61 High 0.00-20.00 [facility] ([place]) Comment on above: Result Comment: For adults in ED, MDW>20.0 may be associated with a higher risk of sepsis during the first 12hrs of hospital admission Performed By: #### B MP, GFR #### [address] [address] .NEUABSon 03-28-2022 Neutrophil, Absolute 7.7 10 3/mcL High 2.9-6.2 [facility] ([place]) Comment on above: Performed By: #### B MP, GFR #### [address] [address] .Urinalysis Microscopic (AO) on 03-28-2022 UA Bacteria 1+ /hpf Abnormal [facility] ([place]) Comment on above: Performed By: #### U AMICAO, UA, PREGU #### [address] [address] UA RBC 0-5 Abnormal None Seen [facility] ([place]) Comment on above: Performed By: #### U AMICAO, UA, PREGU #### [place] [id number] UA Squam Epithelial 5-10 Abnormal None Seen [facility] ([place]) Comment on above: Performed By: #### U AMICAO, UA, PREGU #### [address] [address] UA WBC 0-5 Abnormal None Seen [facility] ([place] Comment on above: Performed By: #### U AMICAO, UA, PREGU #### [address] [address] BMPon 03-28-2022 BUN/Creatinine Ratio 9 ratio Normal 7-27 [facility] ([place]) Comment on above: Performed By: #### B MP, GFR #### [address] [address] Calcium [Mass/Vol] 8.7 mg/dL Normal 8.4-10.2 [facility] ([place]) Comment on above: Performed By: #### B MP, GFR #### [address] [address] Chloride [Moles/Vol] 101 mmol/L Normal 98-107 [facility] ([place]) Comment on above: Performed By: #### B MP, GFR #### [address] [address] CO2 [Moles/Vol] 25 mmol/L Normal 22-29 [facility] ([place]) Comment on above: Performed By: #### B MP, GFR #### [address] [address] Creatinine [Mass/Vol] 0.94 mg/dL Normal 0.55-1.02 [facility] ([place]) Comment on above: Performed By: #### B MP, GFR #### [address] [address] Electrolyte Balance 13.0 mEq/L Normal 4.0-15.0 [facility] ([place]) Comment on above: Performed By: #### B MP, GFR #### [address] [address] Glucose [Mass/Vol] 143 mg/dL High 70-105 [facility] [place] Comment on above: Performed By: #### B MP, GFR #### [address] [address] Potassium [Moles/Vol] 3.4 mmol/L Low 3.5-5.1 [facility] ([place]) Comment on above: Performed By: #### B MP, GFR #### [address] [address] Sodium [Moles/Vol] 139 mmol/L Normal 136-145 [facility] [place] Comment on above: Performed By: #### B MP, GFR #### [address] [address] Urea nitrogen [Mass/Vol] 8 mg/dL Normal 7-18 [facility] ([place]) Comment on above: Performed By: #### B MP, GFR #### [address] [address] CBCon 03-28-2022 Erythrocyte distribution width (RBC) [Ratio] 13.4 % Normal 11.5-14.5 [facility] ([place]) Comment on above: Performed By: #### B MP, GFR #### [address] [address] Hematocrit (Bld) [Volume fraction] 45.4 % Normal 37.0-47.0 [facility] ([place]) Comment on above: Performed By: #### B MP, GFR #### [address] [address] Hgb 15.6 G/dL Normal 12.0-16.0 [facility] ([place]) Comment on above: Performed By: #### B MP, GFR #### [address] [address] MCH (RBC) [Entitic mass] 29.1 pg Normal 27.0-31.2 [facility] ([place]) Comment on above: Performed By: #### B MP, GFR #### [address] [address] MCHC 34.3 G/dL Normal 33.0-37.0 [facility] ([place]) Comment on above: Performed By: #### B MP, GFR #### [address] [address] MCV (RBC) [Entitic vol] 85.0 fL Normal 80.0-94.0 A [facility] ([place]) Comment on above: Performed By: #### B MP, GFR #### [address] [address] Platelet 358 10 3/mcL Normal 130-400 [facility] ([place]) Comment on above: Performed By: #### B MP, GFR #### [address] [address] Platelet mean volume (Bld) [Entitic vol] 8.3 fL Normal 7.4-10.4 [facility] ([place]) Comment on above: Performed By: #### B MP, GFR #### [address] [address] RBC 5.34 10 6/mcL Normal 4.20-5.40 [facility] ([place]) Comment on above: Performed By: #### B MP, GFR #### [address] [address] WBC 10.3 10 3/mcL Normal 4.6-10.8 [facility] ([place]) Comment on above: Performed By: #### B MP, GFR #### [place] [place] [address] [place], [place] [address] [id number] 03-28-2022 SARS-CoV-2 (COVID-19) RNA LAWSON+probe Ql (Unsp spec) Negative Normal Negative [facility] ([place]) Comment on above: Performed By: #### B MP, GFR #### [place] [place] [address] [place], [place] [address] SARS-CoV-2 (COVID-19) RNA LAWSON+probe Ql (Unsp spec) Normal [facility] ([place]) Comment on above: Result Comment: Nega tive results do not preclude SARS-CoV-2 infection and should not be used as the sole basis for patient management decisions. Negative results must be combined with clinical observations, patient history, and epidemiological information. There is a risk of false negative values resulting from improperly collected, transported, or handled specimens. There is a risk of false negative values due to the presence of sequence variants in the pathogen targets of the assay, procedural errors, amplification inhibitors in specimens, or inadequate numbers of organisms for amplification. ADRIEL SARS-CoV-2 Assay is a Real-Time reverse-transcriptase polymerase chain reaction (RT-PCR) based qualitative in vitro diagnostic test intended for the qualitative detection of nucleic acid from the SARS-CoV-2 in nasopharyngeal swab specimens collected from individuals suspected of COVID-19 by their healthcare provider. Testing is limited to laboratories certified under the Clinical Laboratory Improvement Amendments of 1988 (CLIA), 42 U.S.C. ?263a, to perform moderate and high complexity tests. COVID-19 Int Performed By: #### B MP, GFR #### [place] [address] [place], [place] [address] FLURSVon 03-28-2022 Flu A PCR (AO) Positive Abnormal Negative [facility] ([place]) Comment on above: Result Comment: Posi tive Results: Positive Flu A/B or RSV for by PCR. Positive test results do not rule out bacterial infection or co-infection with other pathogens. Test results should be interpreted in conjunction with other laboratory and clinical data. Negative Results: Negative for by PCR. Negative test results do not preclude influenza virus or RSV infection and should not be used as the sole basis for diagnosis, treatment, or other management decisions. There is a risk of false negative RSV results when at low concentration and in the presence of co-infection with high concentration of influenza A. Invalid Results: An Invalid result (INV) was obtained. The test was repeated with similar results. REPEAT COLLECTION AND TESTING IS RECOMMENDED. The Ocutec Flu A/B & RSV Assay is a real-time polymerase chain reaction (PCR) based qualitative in vitro diagnostic test for the direct detection and differentiation of influenza A virus, influenza B virus, and respiratory syncytial virus (RSV) nucleic acid in nasopharyngeal swab ([employer]) specimens from patients with signs and symptoms of respiratory infection in conjunction with clinical and laboratory findings. The test is intended for use as an aid in the differential diagnosis of influenza A virus, influenza B virus, and RSV in humans and is not intended to detect influenza C. Performed By: #### B , [facility] #### [address] [address] Flu B PCR (AO) Negative Normal Negative [facility] ([place]) Comment on above: Result Comment: Posi tive Results: Positive Flu A/B or RSV for by PCR. Positive test results do not rule out bacterial infection or co-infection with other pathogens. Test results should be interpreted in conjunction with other laboratory and clinical data. Negative Results: Negative for by PCR. Negative test results do not preclude influenza virus or RSV infection and should not be used as the sole basis for diagnosis, treatment, or other management decisions. There is a risk of false negative RSV results when at low concentration and in the presence of co-infection with high concentration of influenza A. Invalid Results: An Invalid result (INV) was obtained. The test was repeated with similar results. REPEAT COLLECTION AND TESTING IS RECOMMENDED. The Adriel Flu A/B & RSV Assay is a real-time polymerase chain reaction (PCR) based qualitative in vitro diagnostic test for the direct detection and differentiation of influenza A virus, influenza B virus, and respiratory syncytial virus (RSV) nucleic acid in nasopharyngeal swab ([employer]) specimens from patients with signs and symptoms of respiratory infection in conjunction with clinical and laboratory findings. The test is intended for use as an aid in the differential diagnosis of influenza A virus, influenza B virus, and RSV in humans and is not intended to detect influenza C. Performed By: #### B MP, GFR #### [place] [address] [place], [place] [address] RSV PCR (AO) Negative Normal Negative [facility] ([place]) Comment on above: Result Comment: Posi tive Results: Positive Flu A/B or RSV for by PCR. Positive test results do not rule out bacterial infection or co-infection with other pathogens. Test results should be interpreted in conjunction with other laboratory and clinical data. Negative Results: Negative for by PCR. Negative test results do not preclude influenza virus or RSV infection and should not be used as the sole basis for diagnosis, treatment, or other management decisions. There is a risk of false negative RSV results when at low concentration and in the presence of co-infection with high concentration of influenza A. Invalid Results: An Invalid result (INV) was obtained. The test was repeated with similar results. REPEAT COLLECTION AND TESTING IS RECOMMENDED. The Ocutec Flu A/B & RSV Assay is a real-time polymerase chain reaction (PCR) based qualitative in vitro diagnostic test for the direct detection and differentiation of influenza A virus, influenza B virus, and respiratory syncytial virus (RSV) nucleic acid in nasopharyngeal swab ([employer]) specimens from patients with signs and symptoms of respiratory infection in conjunction with clinical and laboratory findings. The test is intended for use as an aid in the differential diagnosis of influenza A virus, influenza B virus, and RSV in humans and is not intended to detect influenza C. Performed By: #### B MP, GFR #### [place] [address] [place], [place] [address] LABORATORYOrdered By: Abhay Garza on 03-28-2022 FLUAV RNA LAWSON+probe Ql (Upper resp) Positive *ABN* (03/28/22 6:16 PM) Invalid Interpretation Code Negative AO Auto Urine SS FLUBV RNA LAWSON+probe Ql (Upper resp) Negative (03/28/22 6:16 PM) Invalid Interpretation Code Negative AO Auto Urine SS RSV RNA LAWSON+probe Ql (Upper resp) Negative (03/28/22 6:16 PM) Invalid Interpretation Code Negative AO Auto Urine SS SARS-CoV-2 (COVID-19) RNA LAWSON+probe Ql (Resp) Negative results do not preclude SARS-CoV-2 infection and should not be used as the sole basis for patient management decisions. Negative results must be combined with clinical observations, patient history, and epidemiological information.There is a risk of false negative values resulting from improperly collected, transported, or handled specimens.There is a risk of false negative values due to the presence of sequence variants in the pathogen targets of the assay, procedural errors, amplification inhibitors in specimens, or inadequate numbers of organisms for amplification.ADRIEL SARS-CoV-2 Assay is a Real-Time reverse-transcriptase polymerase chain reaction (RT-PCR) based qualitative in vitro diagnostic test intended for the qualitative detection of nucleic acid from the SARS-CoV-2 in nasopharyngeal swab specimens collected from individuals suspected of COVID-19 by their healthcare provider. Testing is limited to laboratories certified under the Clinical Laboratory Improvement Amendments of 1988 (CLIA), 42 U.S.C. 263a, to perform moderate and high complexity tests. Invalid Interpretation Code AO Auto Urine SS Appearance (U) Slightly Cloudy *ABN* (03/28/22 5:39 PM) Invalid Interpretation Code Clear AO Auto Urine SS Bacteria LM.HPF (Urine sed) [#/Area] 1 /[HPF] Invalid Interpretation Code AO Auto Urine SS Bilirubin Ql (U) Small *ABN* (03/28/22 5:39 PM) Invalid Interpretation Code Negative AO Auto Urine SS Color (U) Yellow (03/28/22 5:39 PM) Invalid Interpretation Code AO Auto Urine SS Glucose Test strip (U) [Mass/Vol] Negative Invalid Interpretation Code Negativemg/dL AO Auto Urine SS HCG ( test) Ql Negative (03/28/22 5:39 PM) Invalid Interpretation Code AO Manual Urine SS Hemoglobin Auto test strip (U) [Mass/Vol] Moderate *ABN* (03/28/22 5:39 PM) Invalid Interpretation Code Negative AO Auto Urine SS Ketones Ql (U) 15 mg/dL Invalid Interpretation Code Negativemg/dL AO Auto Urine SS test (u) int Not detected Invalid Interpretation Code AO Manual Urine SS UA Leuk Est Negative (03/28/22 5:39 PM) Invalid Interpretation Code Negative AO Auto Urine SS UA Nitrite Negative (03/28/22 5:39 PM) Invalid Interpretation Code Negative AO Auto Urine SS UA pH 5.5 (03/28/22 5:39 PM) Invalid Interpretation Code 5.0 - 8.0 AO Auto Urine SS UA Protein 100 mg/dL Invalid Interpretation Code Negativemg/dL AO Auto Urine SS UA RBC 0-5 /HPF Invalid Interpretation Code None Seen/HPF AO Auto Urine SS UA Spec Grav >=1.030 *ABN* (03/28/22 5:39 PM) Invalid Interpretation Code 1.015-1.025 AO Auto Urine SS UA Specimen Type Clean Catch (03/28/22 5:39 PM) Invalid Interpretation Code AO Auto Urine SS UA Squam Epithelial 5-10 /HPF Invalid Interpretation Code None Seen/HPF AO Auto Urine SS UA Urobilinogen 0.2 E.U./dL Invalid Interpretation Code 0.2-1.0E.U./dL AO Auto Urine SS WBC LM.HPF (Urine sed) [#/Area] 0-5 /HPF Invalid Interpretation Code None Seen/HPF AO Auto Urine SS Basophil, Absolute 0.0 103/mcL Invalid Interpretation Code 0.0 - 0.2 10^3/mcL AO Workflow SS Basophils/100 WBC (Bld) 0.4 % Invalid Interpretation Code 0.0 - 2.5 % AO Workflow SS Eosinophil, Absolute 0.0 103/mcL Invalid Interpretation Code 0.0 - 0.4 10^3/mcL AO Workflow SS Eosinophils/100 WBC (Bld) 0.1 % Invalid Interpretation Code 0.0 - 7.0 % AO Workflow SS Erythrocyte distribution width (RBC) [Ratio] 13.4 % Invalid Interpretation Code 11.5 - 14.5 % AO Workflow SS Hematocrit (Bld) [Volume fraction] 45.4 % Invalid Interpretation Code 37.0 - 47.0 % AO Workflow SS Hemoglobin (Bld) [Mass/Vol] 15.6 G/dL Invalid Interpretation Code 12.0 - 16.0 G/dL AO Workflow SS Lymphocyte, Absolute 1.7 103/mcL Invalid Interpretation Code 0.8 - 3.9 10^3/mcL AO Workflow SS Lymphocytes/100 WBC (Bld) 16.9 % Invalid Interpretation Code 10.0 - 50.0 % AO Workflow SS MCH (RBC) [Entitic mass] 29.1 pg Invalid Interpretation Code 27.0 - 31.2 pg AO Workflow SS MCHC 34.3 G/dL Invalid Interpretation Code 33.0 - 37.0 G/dL AO Workflow SS MCV (RBC) [Entitic vol] 85.0 fL Invalid Interpretation Code 80.0 - 94.0 fL AO Workflow SS Monocyte distribution width Auto (Bld) [Entitic vol] 22.61 Invalid Interpretation Code 0.00 - 20.00 AO Workflow SS Comment on above: Result Comment: For adults in ED, MDW>20.0 may be associated with a higher risk of sepsis during the first 12hrs of hospital admission Monocyte, Absolute 0.8 103/mcL Invalid Interpretation Code 0.2 - 1.0 10^3/mcL AO Workflow SS Monocytes/100 WBC (Bld) 7.5 % Invalid Interpretation Code 1.7 - 13.0 % AO Workflow SS Neutrophil, Absolute 7.7 103/mcL Invalid Interpretation Code 2.9 - 6.2 10^3/mcL AO Workflow SS Neutrophils/100 WBC (Bld) 75.1 % Invalid Interpretation Code 37.0 - 80.0 % AO Workflow SS Platelet mean volume (Bld) [Entitic vol] 8.3 fL Invalid Interpretation Code 7.4 - 10.4 fL AO Workflow SS Platelets (Bld) [#/Vol] 358 103/mcL Invalid Interpretation Code 130 - 400 10^3/mcL AO Workflow SS RBC (Bld) [#/Vol] 5.34 106/mcL Invalid Interpretation Code 4.20 - 5.40 10^6/mcL AO Workflow SS WBC (Bld) [#/Vol] 10.3 103/mcL Invalid Interpretation Code 4.6 - 10.8 10^3/mcL AO Workflow SS LABORATORYOrdered By: SYSTEM SYSTEM on 03-28-2022 Calcium [Mass/Vol] 8.7 mg/dL Invalid Interpretation Code 8.4 - 10.2 mg/dL AO ADM SS Chloride [Moles/Vol] 101 mmol/L Invalid Interpretation Code 98 - 107 mmol/L AO ADM SS CO2 [Moles/Vol] 25 mmol/L Invalid Interpretation Code 22 - 29 mmol/L AO ADM SS Creatinine [Mass/Vol] 0.94 mg/dL Invalid Interpretation Code 0.55 - 1.02 mg/dL AO ADM SS Electrolyte Balance 13.0 mEq/L Invalid Interpretation Code 4.0 - 15.0 mEq/L AO ADM SS GFR 87 ml/min/1.73sqm Invalid Interpretation Code AO Chemistry S GFR Non- 72 ml/min/1.73sqm Invalid Interpretation Code AO Chemistry S Glucose [Mass/Vol] 143 mg/dL Invalid Interpretation Code 70 - 105 mg/dL AO ADM SS Potassium [Moles/Vol] 3.4 mmol/L Invalid Interpretation Code 3.5 - 5.1 mmol/L AO ADM SS Sodium [Moles/Vol] 139 mmol/L Invalid Interpretation Code 136 - 145 mmol/L AO ADM SS Urea nitrogen [Mass/Vol] 8 mg/dL Invalid Interpretation Code 7 - 18 mg/dL AO ADM SS Urea nitrogen/Creatinine [Mass ratio] 9 ratio Invalid Interpretation Code 7 - 27 ratio AO ADM SS No Panel Informationon 03-28 Streptococcus Pneumoniae Urine Antig Presumptive negative for pneumococcal pneumonia, suggesting no current or recent pneumococcal infection. Infection due to Strep pneumoniae cannot be ruled out since the antigen present in the sample may be below the detection limit of the test. [facility] Work Phone: Comment on above: This test has not be en evaluated on patients taking antibiotics for greater than 24 hours or on patients who have recently completed an antibiotic regimen. The accuracy of this test has not been proven in young children. PREGUon 03-28-2022 HCG ( test) Ql (U) Negative Normal [facility] ([place]) Comment on above: Performed By: #### U AMICAO, UA, PREGU #### [address] [address] test (u) int Not detected Invalid Interpretation Code [facility] ([place]) Comment on above: Performed By: #### U AMICAO, UA, PREGU #### [address] [address] UAon 03-28-2022 Color (U) Yellow Normal [facility] ([place]) Comment on above: Performed By: #### U AMICAO, UA, PREGU #### [address] [address] Glucose (U) [Mass/Vol] Negative Normal Negative [facility] ([place]) Comment on above: Performed By: #### U AMICAO, UA, PREGU #### [address] [address] Ketones Ql (U) 15 mg/dL Abnormal Negative [facility] [place] Comment on above: Performed By: #### U AMICAO, UA, PREGU #### [address] [address] UA Appear Slightly Cloudy Abnormal Clear [facility] [place] Comment on above: Performed By: #### U AMICAO, UA, PREGU #### [address] [address] UA Bili Small Abnormal Negative [facility] [place] Comment on above: Performed By: #### U AMICAO, UA, PREGU #### [address] [address] UA Blood Moderate Abnormal Negative [facility] [place] Comment on above: Performed By: #### U AMICAO, UA, PREGU #### [place] [address] UA Leuk Est Negative Normal Negative [facility] [place] Comment on above: Performed By: #### U AMICAO, UA, PREGU #### [place] [address] UA Nitrite Negative Normal Negative [facility] [place] Comment on above: Performed By: #### U AMICAO, UA, PREGU #### [address] [address] UA pH 5.5 Normal 5.0 - 8.0 [facility] ([place] Comment on above: Performed By: #### U AMICAO, UA, PREGU #### [address] [address] UA Protein 100 mg/dL Abnormal Negative [facility] [place] Comment on above: Performed By: #### U AMICAO, UA, PREGU #### [address] [address] UA Spec Grav >=1.030 Abnormal 1.015-1.025 [facility] ([place] Comment on above: Performed By: #### U AMICAO, UA, PREGU #### [address] [address] UA Urobilinogen 0.2 E.U./dL Normal 0.2-1.0 [facility] ([place]) Comment on above: Performed By: #### U JUAN ALBERTS, PREGU #### Aileen Renault [address] [place], [place] [address] UA Specimen Type Clean Catch Normal [facility] ([place] Comment on above: Performed By: #### U LEXUS, UA, PREGU #### Aileen Renault [address] [place], [place] [address] XR CHEST 1 VIEWon 03-28-2022 XR CHEST 1 VIEW ORIGINAL EXAMINATION: ONE XRAY VIEW OF THE CHEST 03/28/2022 4:47 pm COMPARISON: None. HISTORY: ORDERING SYSTEM PROVIDED HISTORY: Reason for Exam: SOB/cough/fever FINDINGS: The cardiomediastinal silhouette is normal. No pleural effusion, vascular congestion, or pneumothorax. Mild right upper lung airspace disease. IMPRESSION: Mild right upper lung airspace disease concerning for pneumonia with the provided symptomatology. Follow-up to resolution recommended. Interpreted by: Humza Souza MD Preliminary Report By: Humza Souza MD Electronically signed By Humza Souza MD Dictated Date: 03/28/2022 4:51:17 PM Prelim Date: 03/28/2022 4:52:18 PM Sign Date: 03/28/2022 4:52:18 PM Ordering Provider: BIBIANA Martinez [facility] ([place]) Absolute lymphocyte counton 03-17-2022 Lymphocytes Auto (Unsp spec) [#/Vol] 3.83 10*3/uL 0.83-4.51 [facility] Work Phone: Atypical perinuclear antineu trophil cytoplasmic antibodies measurementon 03-17-2022 Neutrophil cytoplasmic Ab.perinuclear.atypical IF (S) [Titer] <1:20 titer Neg:<1:20 [facility] Work Phone: Comment on above: The atypical pANCA p attern has been observed in asignificant percentage of patients with ulcerative colitis,primary sclerosing cholangitis and autoimmune hepatitis.Performed at: - [address] [id number] Director: Joe Marshall PhD, Phone: [phone] Basophil percentageon 2021 Amylase [Catalytic activity/Vol] 40 U/L 25-115 [facility] Work Phone: Basophil percentage < 0.2 AI 0.0-0.9 [facility] Work [facility]: Basophils/100 WBC (Bld) 0.6 % 0-1 [facility] Work Phone: Bilirubin [Mass/Vol] 0.30 mg/dL 0.20-1.00 [facility] Work Phone: Comment on above: For patients on eltr ombopag therapy, use of Dimension [place] TBIL is not recommended. Chloride [Moles/Vol] 109 mmol/L 98-107 [facility] Work Phone: Eosinophils/100 WBC (Bld) 7.6 % 0-5 [facility] Work Phone: Glucose [Mass/Vol] 111 mg/dL 74-106 [facility] Work Phone: Comment on above: Fasting Glucose resu lt from 100 to 125 mg/dL suggests IMPAIRED HOMEOSTASIS per A.D.A. criteria. Neutrophils (Bld) [#/Vol] 7.3 10*3/uL 2.0-7.7 [facility] Work Phone: [phone] Neutrophils/100 WBC (Bld) 55.9 % 47-70 [facility] Work Phone: Potassium [Moles/Vol] 3.9 mmol/L 3.5-5.1 [facility] Work Phone: Protein [Mass/Vol] 7.7 g/dL 6.4-8.2 [facility] Work Phone: Sodium [Moles/Vol] 138 mmol/L 136-145 [facility] Work Phone: WBC (Bld) [#/Vol] 13.1 10*3/uL 4.4-11.0 [facility] Work Phone: Blood erythrocytes count (nu mber/volume)on 03-17-2022 RBC (Bld) [#/Vol] 4.84 10*6/uL 4.2-5.4 [facility] Work Phone: Blood hemoglobin measurement (mass/volume)on 03-17-2022 Hemoglobin (Bld) [Mass/Vol] 14.1 g/dL 12.0-15.0 [facility] Work Phone: Blood lymphocytes/100 leukoc yteson 03-17-2022 Lymphocytes/100 WBC (Bld) 29.3 % 19-41 [facility] Work Phone: Blood monocytes/100 leukocyt eson 03-17-2022 Monocytes/100 WBC (Bld) 6.2 % 0-10 [facility] Work Phone: Blood platelet mean volumeon 03-17-2022 Platelet mean volume (Bld) [Entitic vol] 9.9 fL 6.2-12.0 [facility] Work Phone: Determination of erythrocyte mean corpuscular volume (MCV)on 03-17-2022 MCV (RBC) [Entitic vol] 87.6 fL 81-99 [facility] Work Phone: Erythrocyte sedimentation ra dayron 03-17-2022 ESR (Bld) [Velocity] 39 mm/h 0-30 [facility] Work Phone: Hematocrit Auto (Bld) [Volum e fraction]on 03-17-2022 Hematocrit (Bld) [Volume fraction] 42.4 % 37-47 [facility] Work Phone: Laboratory - Chemistry and C hemistry - challengeon 03-17-2022 ALP [Catalytic activity/Vol] 84 U/L 45-117 [facility] Work Phone: ALT [Catalytic activity/Vol] 46 U/L 13-56 [facility] Work Phone: CO2 [Moles/Vol] 24.0 mmol/L 21.0-32.0 [facility] Work Phone: Globulin (S) [Mass/Vol] 4.1 g/dL 2.2-4.2 [facility] Work Phone: Lipase [Catalytic activity/Vol] 131 U/L 73-393 [facility] Work Phone: Urea nitrogen/Creatinine [Mass ratio] 9.2 mg/mg 10-20 [facility] Work Phone: Laboratory - Hematology and Cell countson 03-17-2022 Erythrocyte distribution width (RBC) [Entitic vol] 41.5 fL 35.1-43.9 [facility] Work Phone: Erythrocyte distribution width (RBC) [Ratio] 13.0 % 11.6-14.6 [facility] Work Phone: Immature granulocytes/100 WBC (Bld) 0.400 % 0.0-0.9 [facility] Work Phone: Comment on above: IG% - Immature Granu locytes (promyelocytes, myelocytes and metamyelocytes) > 1% indicates that a LEFT SHIFT is Present. MCH (RBC) [Entitic mass] 29.1 pg 27.0-32.0 [facility] Work Phone: Nucleated RBC/100 WBC (Bld) [Ratio] 0 % 0-5 [facility] Work Phone: MCHC Auto (RBC) [Mass/Vol]on 03-17-2022 MCHC (RBC) [Mass/Vol] 33.3 g/dL 32-36 [facility] Work Phone: No Panel Informationon 03-17 Centromere B Antibody <0.2 AI 0.0-0.9 [facility] Work Phone: Endomysial IgA Antibody Negative Negative [facility] Work Phone: Estimated GFR (MDRD) Amer 101 mL/min >60 [facility] Work Phone: Comment on above: GFR Calc Estimated GFR (MDRD) Non-Af Amer 84 mL/min >60 [facility] Work Phone: Comment on above: Non- GFR Calc Miscellaneous Test See comment [facility] Work Phone: Comment on above: TEST RESULT LIMITSIB D Expanded Panel Maryse 50 units 0-50 Negative <45 Equivocal 45 - 50 Positive >50 ACCA 15 units 0-90 Negative <80 Equivocal 80 - 90 Positive >90 ALCA 9 units 0-60 Negative <55 Equivocal 55 - 60 Positive >60 AMCA 13 units 0-100 Negative < 90 Equivocal 90 - 100 Positive >100 This test was developed and its performance characteristics determined by [facility]. It has not been cleared or approved by the Food and Drug Administration. The FDA has determined that such clearance or approval is not necessary.Atypical pANCA Negative NegativeComments Pattern is not suggestive of Inflammatory Bowel Disease __ TESTING PERFORMED AT [facility]. ORIGINAL REPORT ON FILE IN LAB CONTAINS ADDITIONAL TEST SITE INFORMATION. PMO MANAGER Antibody <0.2 AI 0.0-0.9 [facility] Work Phone: Platelets bldon 03-17-2022 Platelets (Bld) [#/Vol] 375 10*3/uL 150-450 [facility] Work Phone: Serum DNA double strand anti body assay (units/volume)on 03-17-2022 DNA double strand Ab Qn (S) 1 [IU]/mL 0-9 [facility] Work Phone: Comment on above: Negative <5 Equivoca l 5 - 9 Positive >9 Serum IgA measurement (units /volume)on 03-17-2022 IgA Qn (S) 302 mg/dL 87-352 [facility] Work Phone: Serum Violeta-1 antibody assay (u nits/volume)on 03-17-2022 Violeta-1 extractable nuclear Ab Qn (S) <0.2 AI 0.0-0.9 [facility] Work Phone: Serum Scl-70 extractable nuc lear antibody assay (units/volume)on 03-17-2022 SCL-70 extractable nuclear Ab Qn (S) <0.2 AI 0.0-0.9 [facility] Work Phone: Serum Manzanares extractable nucl ear antibody detectionon 03-17-2022 Manzanares extractable nuclear Ab Ql (S) <0.2 AI 0.0-0.9 [facility] Work Phone: Serum classic neutrophil cyt oplasmic antibody assay (units/volume)on 03-17-2022 Neutrophil cytoplasmic Ab.classic Qn (S) <1:20 titer Neg:<1:20 [facility] Work Phone: Serum or plasma C reactive p rotein measurement (mass/volume)on 03-17-2022 CRP [Mass/Vol] 10.30 mg/L 0.0-3.0 [facility] Work Phone: Comment on above: C-Reactive Protein ( CRP) provides useful information for thediagnosis, therapy and monitoring of inflammatory processesand associated diseases. For the evaluation of Relative Riskfor Cardiovascular Disease, a High Sensitivity CRP (HSCRP)should be ordered. Serum or plasma albumin luis urement (mass/volume)on 03-17-2022 Albumin [Mass/Vol] 3.6 g/dL 3.2-5.0 [facility] Work Phone: Serum or plasma albumin/glob ulin mass ratioon 03-17-2022 Albumin/Globulin [Mass ratio] 0.9 {ratio} 0.9-2.4 [facility] Work Phone: Serum or plasma calcium luis urement (mass/volume)on 03-17-2022 Calcium [Mass/Vol] 9.2 mg/dL 8.5-10.1 [facility] Work Phone: Serum or plasma creatinine m easurement (mass/volume)on 03-17-2022 Creatinine [Mass/Vol] 0.87 mg/dL 0.55-1.02 [facility] Work Phone: Comment on above: The validity of the calculated GFR & GFRAA in patients over 70 years has not been determined. Clinical correlation is essential. Serum or plasma urea nitroge n measurement (mass/volume)on 03-17-2022 Urea nitrogen [Mass/Vol] 8 mg/dL 7-18 [facility] Work Phone: Serum perinuclear neutrophil cytoplasmic antibody titer by immunofluorescenceon 03-17-2022 Neutrophil cytoplasmic Ab.perinuclear IF (S) [Titer] <1:20 titer Neg:<1:20 [facility] Work Phone: Comment on above: The presence of posi tive fluorescence exhibiting P-ANCA orC-ANCA patterns alone is not specific for the diagnosis ofWegener's Granulomatosis (WG) or microscopic polyangiitis.Decisions about treatment should not be based solely onANCA IFA results. The [employer] ANCA [employer] Consensusrecommends follow up testing of positive sera with both DE-3 and MPO-ANCA enzyme immunoassays. As many as 5% serumsamples are positive only by EIA. Ref. AM J Clin Iizdne6038;111:507-513. Serum tissue transglutaminas e IgA antibody assay (units/volume)on 03-17-2022 tTG IgA Qn (S) <2 U/mL 0-3 [facility] Work Phone: Comment on above: Negative 0 - 3 Weak Positive 4 - 10 Positive >10 Tissue Transglutaminase (tTG) has been identified as the endomysial antigen. Studies have demonstr- ated that endomysial IgA antibodies have over 99% specificity for gluten sensitive enteropathy. Thin prep Papanicolaou smear with manual screeningon 03-17-2022 Thin prep Papanicolaou smear with manual screening 32 U/L 15-37 [facility] Work Phone: Thin prep Papanicolaou smear with manual screening 5 5-15 [facility] Work Phone: Chlamydia trachomatis rRNA d etection by probe and target amplification methodon 02-27-2022 C. trachomatis rRNA LAWSON+probe Ql (Unsp spec) Negative Negative [facility] Work Phone: Laboratory - Microbiology an d Antimicrobial susceptibilityon 02-27-2022 N. gonorrhoeae DNA LAWSON+probe Ql (Unsp spec) Negative Negative [facility] Work Phone: Comment on above: Performed at: =David Anand[address] [place], [place] [id number] Director: Viviana Daniels MD, Phone: [phone] Basophil percentageon 2021 WBC (Bld) [#/Vol] 9.9 10*3/uL 4.4-11.0 [facility] Work Phone: Blood erythrocytes count (nu mber/volume)on 02-11-2022 RBC (Bld) [#/Vol] 4.66 10*6/uL 4.2-5.4 [facility] Work Phone: Blood hemoglobin measurement (mass/volume)on 02-11-2022 Hemoglobin (Bld) [Mass/Vol] 13.9 g/dL 12.0-15.0 [facility] Work Phone: Blood platelet mean volumeon 02-11-2022 Platelet mean volume (Bld) [Entitic vol] 10.3 fL 6.2-12.0 [facility] Work Phone: Determination of erythrocyte mean corpuscular volume (MCV)on 02-11-2022 MCV (RBC) [Entitic vol] 88.0 fL 81-99 [facility] Work Phone: Hematocrit Auto (Bld) [Volum e fraction]on 02-11-2022 Hematocrit (Bld) [Volume fraction] 41.0 % 37-47 [facility] Work Phone: Laboratory - Hematology and Cell countson 02-11-2022 Erythrocyte distribution width (RBC) [Entitic vol] 43.6 fL 35.1-43.9 [facility] Work Phone: Erythrocyte distribution width (RBC) [Ratio] 13.4 % 11.6-14.6 [facility] Work Phone: MCH (RBC) [Entitic mass] 29.8 pg 27.0-32.0 [facility] Work Phone: MCHC Auto (RBC) [Mass/Vol]on 02-11-2022 MCHC (RBC) [Mass/Vol] 33.9 g/dL 32-36 [facility] Work Phone: No Panel Informationon 02-11 Total Iron Binding Capacity 575 ug/dL 250-450 [facility] Work Phone: Platelets bldon 02-11-2022 Platelets (Bld) [#/Vol] 322 10*3/uL 150-450 [facility] Work Phone: Serum or plasma choriogonado tropin detectionon 02-11-2022 HCG ( test) Ql < 1 mIU/mL <4 [facility] Work Phone: Comment on above: hCG levels with Gest ational AgeGestational Age hCG mIU/mL (IU/L)0.2 - 1 week 5 - 501-2 weeks 50 - 5002-3 weeks 100 - 11508-8 weeks 500 - 095495-2 weeks 1000 - 968098-3 weeks 59062 - 100,0006-8 weeks 05888 - 200,0002-3 months 95177 - 100,000 Cervical or vagninal specime n microscopic examination by cytology stain (reported ason 12-26-2021 Cytology report Cyto stain Doc (Cvx/Vag) Comment . [facility] Work Phone: Comment on above: The Pap smear is a s creening test designed to aid in thedetection of premalignant and malignant conditions of theuterine cervix. It is not a diagnostic procedure andshould not be used as the sole means of detecting cervicalcancer. Both false-positive and false-negative reports dooccur. Laboratory - Cytologyon 12-12 Hop Farmer Cyto stain Nom (Cvx/Vag) [ID] Comment . [facility] Work Phone: Comment on above: Cheng Lowry, Cytot echnologist (ASCP) Laboratory - Miscellaneous t estson 12-26-2021 Service comment (Unsp spec) [Interp] Comment . [facility] Work Phone: Comment on above: This liquid based Th inPrep(R) pap test was screened withthe use of an image guided system. Service comment (Unsp spec) [Interp] . . [facility] Work Phone: No Panel Informationon 12-26 Human Papillomavirus Screen Comment . [facility] Work Phone: Comment on above: The HPV DNA reflex c abdulkadir were not met with this specimenresult therefore, no HPV testing was performed.Performed at: [address] [id number] Director: Viviana Daniels MD, Phone: [phone] Pathology report final diagnosis Narrative Comment . [facility] Work Phone: Comment on above: NEGATIVE FOR INTRAEP ITHELIAL LESION OR MALIGNANCY. Laboratory - Hematology and Cell countson 12-18-2021 HbA1c (Bld) [Mass fraction] 6.2 % 4.2-6.3 [facility] Work Phone: Laboratory - Hematology and Cell countson 05-24-2021 HbA1c (Bld) [Mass fraction] 6.2 % [facility] Work Phone: Absolute lymphocyte counton 05-08-2021 Lymphocytes Auto (Unsp spec) [#/Vol] 4.17 10*3/uL 0.83-4.51 [facility] Work Phone: Basophil percentageon 2021 Basophils/100 WBC (Bld) 0.6 % 0-1 [facility] Work Phone: Eosinophils/100 WBC (Bld) 3.7 % 0-5 [facility] Work Phone: [phone] Neutrophils (Bld) [#/Vol] 6.1 10*3/uL 2.0-7.7 [facility] Work Phone: Neutrophils/100 WBC (Bld) 51.9 % 47-70 [facility] Work Phone: WBC (Bld) [#/Vol] 11.8 10*3/uL 4.4-11.0 [facility] Work Phone: Blood erythrocytes count (nu mber/volume)on 05-08-2021 RBC (Bld) [#/Vol] 4.83 10*6/uL 4.2-5.4 [facility] Work Phone: Blood hemoglobin measurement (mass/volume)on 05-08-2021 Hemoglobin (Bld) [Mass/Vol] 14.1 g/dL 12.0-15.0 [facility] Work Phone: [phone] Blood lymphocytes/100 leukoc yteson 05-08-2021 Lymphocytes/100 WBC (Bld) 35.4 % 19-41 [facility] Work Phone: Blood monocytes/100 leukocyt eson 05-08-2021 Monocytes/100 WBC (Bld) 7.9 % 0-10 [facility] Work Phone: Blood platelet mean volumeon 05-08-2021 Platelet mean volume (Bld) [Entitic vol] 9.8 fL 6.2-12.0 [facility] Work Phone: Determination of erythrocyte mean corpuscular volume (MCV)on 05-08-2021 MCV (RBC) [Entitic vol] 87.8 fL 81-99 [facility] Work Phone: Hematocrit Auto (Bld) [Volum e fraction]on 05-08-2021 Hematocrit (Bld) [Volume fraction] 42.4 % 37-47 [facility] Work Phone: Laboratory - Hematology and Cell countson 05-08-2021 Erythrocyte distribution width (RBC) [Entitic vol] 42.8 fL 35.1-43.9 [facility] Work Phone: Erythrocyte distribution width (RBC) [Ratio] 13.3 % 11.6-14.6 [facility] Work Phone: Immature granulocytes/100 WBC (Bld) 0.500 % 0.0-0.9 [facility] Work Phone: Comment on above: IG% - Immature Granu locytes (promyelocytes, myelocytes and metamyelocytes) > 1% indicates that a LEFT SHIFT is Present. MCH (RBC) [Entitic mass] 29.2 pg 27.0-32.0 [facility] Work Phone: Nucleated RBC/100 WBC (Bld) [Ratio] 0 % 0-5 [facility] Work Phone: MCHC Auto (RBC) [Mass/Vol]on 05-08-2021 MCHC (RBC) [Mass/Vol] 33.3 g/dL 32-36 [facility] Work Phone: No Panel Informationon 05-08 Thyroid Stimulating Hormone (TSH) 3.13 uIU/mL 0.358-3.74 [facility] Work Phone: Platelets bldon 05-08-2021 Platelets (Bld) [#/Vol] 398 10*3/uL 150-450 [facility] Work Phone: Serum or plasma prolactin me asurement (mass/volume)on 05-08-2021 Prolactin [Mass/Vol] 9.1 ng/mL [facility] Work Phone: Comment on above: NORMAL REFERENCE RAN GES FEMALE NON- 2.2 - 30.3 ng/mL 8.1 - 347.6 ng/mL POST-MENOPAUSAL 0.7 - 31.5 ng/mL MALE 2.5 - 17.4 ng/mL [facility] Note on 10-13-2016 [facility] Note Normal [facility] Gram stain for investigation of transfusion reaction Microscopic observation Gram stain Nom (Unsp spec) [facility] Work Phone: Thin prep Papanicolaou smear with manual screening Genital Culture Streptococcus agalactiae (B) [facility] Work Phone: Vital Signs Date Time Vital Sign Value Performing Clinician Facility 08-19-2024 09:51-0400 Body height 160.[address] Skyler Rodriges MD Work Phone: [facility] 08-19-2024 09:51-0400 Body mass index (BMI) [Ratio] 38.7 kg/m2 Dr. Skyler Rodriges MD Work Phone: [facility] 08-19-2024 09:51-0400 Body temperature 98 [degF] Dr. Skyler Rodriges MD Work Phone: [facility] 08-19-2024 09:51-0400 Body weight 99.[address] Skyler Rodriges MD Work Phone: [facility] 08-19-2024 09:51-0400 Diastolic blood pressure 90 mm[Hg] Dr. Skyler Rodriges MD Work Phone: [facility] 08-19-2024 09:51-0400 Heart rate 80 /min Dr. Skyler Rodriges MD Work Phone: [facility] 08-19-2024 09:51-0400 Respiratory rate 16 /min Dr. Skyler Rodriges MD Work Phone: [facility] 08-19-2024 09:51-0400 SaO2% (BldA) [Mass fraction] 97 % Dr. Skyler Rodriges MD Work Phone: [facility] 08-19-2024 09:51-0400 Systolic blood pressure 112 mm[Hg] Dr. Skyler Rodriges MD Work Phone: [facility] 07-05-2024 15:10-0400 Body mass index (BMI) [Ratio] 37.16 kg/m2 Patricia Germain APRN.FABRIC 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 Work Phone: [facility] 07-05-2024 15:10-0400 Body temperature 98.91 [degF] Patricia Germain APRN.FABRIC 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 Work Phone: [facility] 07-05-2024 15:10-0400 Body weight 98.2 kg Patricia Germain APRN.FABRIC 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 Work Phone: [facility] 07-05-2024 15:10-0400 Diastolic blood pressure 80 mm[Hg] Patricia Praisler-Wood FIBERGLASS QUALITY TECHNICIAN.FABRIC 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 Work Phone: [facility] 07-05-2024 15:10-0400 Heart rate 100 /min Patricia Praisler-Wood FIBERGLASS QUALITY TECHNICIAN.FABRIC 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 Work Phone: [facility] 07-05-2024 15:10-0400 Respiratory rate 18 /min Patricia Praisler-Wood FIBERGLASS QUALITY TECHNICIAN.FABRIC 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 Work Phone: [facility] 07-05-2024 15:10-0400 SaO2% (BldA) [Mass fraction] 97 % Patricia Praisler-Wood FIBERGLASS QUALITY TECHNICIAN.FABRIC 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 Work Phone: [facility] 07-05-2024 15:10-0400 Systolic blood pressure 122 mm[Hg] Patricia Praisler-Wood FIBERGLASS QUALITY TECHNICIAN.FABRIC 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 Work Phone: [facility] 06-17-2024 08:05-0500 Body height 160.[address] Skyler Rodriges MD Work Phone: [facility] 06-17-2024 08:05-0500 Body mass index (BMI) [Ratio] 38.7 kg/m2 Dr. Skyler Rodriges MD Work Phone: [facility] 06-17-2024 08:05-0500 Body temperature 98.6 [degF] Dr. Skyler Rodriges MD Work Phone: [facility] 06-17-2024 08:05-0500 Body weight 99.[address] Skyler Rodriges MD Work Phone: [facility] 06-17-2024 08:05-0500 Diastolic blood pressure 98 mm[Hg] Dr. Skyler Rodriges MD Work Phone: [facility] 06-17-2024 08:05-0500 Heart rate 83 /min Dr. Skyler Rodriges MD Work Phone: [facility] 06-17-2024 08:05-0500 Respiratory rate 18 /min Dr. Skyler Rodriges MD Work Phone: [facility] 06-17-2024 08:05-0500 SaO2% (BldA) [Mass fraction] 97 % Dr. Skyler Rodriges MD Work Phone: [facility] 06-17-2024 08:05-0500 Systolic blood pressure 138 mm[Hg] Dr. Skyler Rodriges MD Work Phone: [facility] 06-15-2024 10:15-0500 Body mass index (BMI) [Ratio] 37.43 kg/m2 Harriett Castillo FIBERGLASS QUALITY TECHNICIAN.FABRIC 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 Work Phone: [facility] 06-15-2024 10:15-0500 Body temperature 98.4 [degF] Harriett Castillo FIBERGLASS QUALITY TECHNICIAN.FABRIC 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 Work Phone: [facility] 06-15-2024 10:15-0500 Body weight 98.9 kg Harriett Castillo FIBERGLASS QUALITY TECHNICIAN.FABRIC 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 Work Phone: [facility] 06-15-2024 10:15-0500 Diastolic blood pressure 72 mm[Hg] Harriett Castillo FIBERGLASS QUALITY TECHNICIAN.FABRIC 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 Work Phone: [facility] 06-15-2024 10:15-0500 Heart rate 110 /min Harriett Castillo FIBERGLASS QUALITY TECHNICIAN.FABRIC 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 Work Phone: [facility] 06-15-2024 10:15-0500 Respiratory rate 18 /min Harriett Castillo FIBERGLASS QUALITY TECHNICIAN.FABRIC 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 Work Phone: [facility] 06-15-2024 10:15-0500 SaO2% (BldA) [Mass fraction] 98 % Harriett Castillo F[employer]ERGLASS QUALITY TECHNICIAN.FABRIC 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 Work Phone: [facility] 06-15-2024 10:15-0500 Systolic blood pressure 124 mm[Hg] Harriett Castillo FIBERGLASS QUALITY TECHNICIAN.FABRIC 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 Work Phone: [facility] 06-08-2024 09:54-0500 Body mass index (BMI) [Ratio] 38 kg/m2 Dr. Skyler Rodriges MD Work Phone: [facility] 06-08-2024 09:54-0500 Body temperature 98.4 [degF] Dr. Skyler Rodriges MD Work Phone: [facility] 06-08-2024 09:54-0500 Body weight 97.[address] Skyler Rodriges MD Work Phone: [facility] 06-08-2024 09:54-0500 Diastolic blood pressure 72 mm[Hg] Dr. Skyler Rodriges MD Work Phone: [facility] 06-08-2024 09:54-0500 Heart rate 91 /min Dr. Skyler Rodriges MD Work Phone: [facility] 06-08-2024 09:54-0500 Respiratory rate 15 /min Dr. Skyler Rodriges MD Work Phone: [facility] 06-08-2024 09:54-0500 SaO2% (BldA) [Mass fraction] 99 % Dr. Skyler Rodriges MD Work Phone: [facility] 06-08-2024 09:54-0500 Systolic blood pressure 134 mm[Hg] Dr. Skyler Rodriges MD Work Phone: [facility] 04-29-2024 10:35-0500 Body mass index (BMI) [Ratio] 37 kg/m2 Dr. Skyler Rodriges MD Work Phone: [facility] 04-29-2024 10:35-0500 Body temperature 97.8 [degF] Dr. Skyler Rodriges MD Work Phone: [facility] 04-29-2024 10:35-0500 Body weight 94.[address] Skyler Rodriges MD Work Phone: [facility] 04-29-2024 10:35-0500 Diastolic blood pressure 70 mm[Hg] Dr. Skyler Rodriges MD Work Phone: [facility] 04-29-2024 10:35-0500 Heart rate 102 /min Dr. Skyler Rodriges MD Work Phone: [facility] 04-29-2024 10:35-0500 Respiratory rate 16 /min Dr. Skyler Rodriges MD Work Phone: [facility] 04-29-2024 10:35-0500 SaO2% (BldA) [Mass fraction] 98 % Dr. Skyler Rodriges MD Work Phone: [facility] 04-29-2024 10:35-0500 Systolic blood pressure 126 mm[Hg] Dr. Skyler Rodriges MD Work Phone: [facility] 04-09-2024 11:39-0500 Body mass index (BMI) [Ratio] 36.33 kg/m2 Krislyn Aberegg PA Work Phone: [facility] 04-09-2024 11:39-0500 Body temperature 98.91 [degF] Krislyn Aberegg PA Work Phone: [facility] 04-09-2024 11:39-0500 Body weight 96 kg Krislyn Aberegg PA Work Phone: [facility] 04-09-2024 11:39-0500 Diastolic blood pressure 85 mm[Hg] Krislyn Aberegg PA Work Phone: [facility] 04-09-2024 11:39-0500 Heart rate 109 /min Krislyn Aberegg PA Work Phone: [facility] 04-09-2024 11:39-0500 Respiratory rate 18 /min Krislyn Aberegg PA Work Phone: [facility] 04-09-2024 11:39-0500 SaO2% (BldA) [Mass fraction] 98 % Krislyn Aberegg PA Work Phone: [facility] 04-09-2024 11:39-0500 Systolic blood pressure 126 mm[Hg] Krislyn Aberegg PA Work Phone: [facility] 03-31-2024 19:43-0500 Body mass index (BMI) [Ratio] 35 kg/m2 [facility] FIBERGLASS QUALITY TECHNICIAN.FABRIC 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 Work Phone: [facility] 03-31-2024 19:43-0500 Body temperature 98.01 [degF] [facility] FIBERGLASS QUALITY TECHNICIAN.FABRIC 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 Work Phone: [facility] 03-31-2024 19:43-0500 Body weight 92.5 kg [facility] FIBERGLASS QUALITY TECHNICIAN.FABRIC 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 Work Phone: [facility] 03-31-2024 19:43-0500 Diastolic blood pressure 80 mm[Hg] [facility] FIBERGLASS QUALITY TECHNICIAN.FABRIC 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 Work Phone: [facility] 03-31-2024 19:43-0500 Heart rate 100 /min [facility] FIBERGLASS QUALITY TECHNICIAN.FABRIC 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 Work Phone: [facility] 03-31-2024 19:43-0500 Respiratory rate 20 /min [facility] FIBERGLASS QUALITY TECHNICIAN.FABRIC 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 Work Phone: [facility] 03-31-2024 19:43-0500 SaO2% (BldA) [Mass fraction] 96 % [facility] FIBERGLASS QUALITY TECHNICIAN.FABRIC 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 Work Phone: [facility] 03-31-2024 19:43-0500 Systolic blood pressure 118 mm[Hg] [facility] FIBERGLASS QUALITY TECHNICIAN.FABRIC 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 Work Phone: [facility] 01-28-2024 09:57-0400 Body mass index (BMI) [Ratio] 33.53 kg/m2 Harriett Castillo F[employer]ERGLASS QUALITY TECHNICIAN.FABRIC 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 Work Phone: [facility] 01-28-2024 09:57-0400 Body temperature 98.8 [degF] Harriett Castillo FIBERGLASS QUALITY TECHNICIAN.FABRIC 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 Work Phone: [facility] 01-28-2024 09:57-0400 Body weight 88.6 kg Harriett Castillo FIBERGLASS QUALITY TECHNICIAN.FABRIC 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 Work Phone: [facility] 01-28-2024 09:57-0400 Diastolic blood pressure 85 mm[Hg] Harriett Castillo F[employer]ERGLASS QUALITY TECHNICIAN.FABRIC 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 Work Phone: [facility] 01-28-2024 09:57-0400 Heart rate 76 /min Harriett Castillo FIBERGLASS QUALITY TECHNICIAN.FABRIC 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 Work Phone: [facility] 01-28-2024 09:57-0400 Respiratory rate 18 /min Harriett Castillo FIBERGLASS QUALITY TECHNICIAN.FABRIC 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 Work Phone: [facility] 01-28-2024 09:57-0400 SaO2% (BldA) [Mass fraction] 96 % Harriett Castillo F[employer]ERGLASS QUALITY TECHNICIAN.FABRIC 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 Work Phone: [facility] 01-28-2024 09:57-0400 Systolic blood pressure 122 mm[Hg] Harriett Castillo FIBERGLASS QUALITY TECHNICIAN.FABRIC 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 Work Phone: [facility] 01-25-2024 13:17-0400 Body mass index (BMI) [Ratio] 33.79 kg/m2 Harriett Castillo F[employer]ERGLASS QUALITY TECHNICIAN.FABRIC 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 Work Phone: [facility] 01-25-2024 13:17-0400 Body temperature 98.29 [degF] Harriett Castillo F[employer]ERGLASS QUALITY TECHNICIAN.FABRIC 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 Work Phone: [facility] 01-25-2024 13:17-0400 Body weight 89.3 kg Harriett Castillo FIBERGLASS QUALITY TECHNICIAN.FABRIC 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 Work Phone: [facility] 01-25-2024 13:17-0400 Diastolic blood pressure 66 mm[Hg] Harriett Castillo FIBERGLASS QUALITY TECHNICIAN.FABRIC 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 Work Phone: [facility] 01-25-2024 13:17-0400 Heart rate 88 /min Harriett Castillo FIBERGLASS QUALITY TECHNICIAN.FABRIC 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 Work Phone: [facility] 01-25-2024 13:17-0400 Respiratory rate 16 /min Harriett Castillo FIBERGLASS QUALITY TECHNICIAN.FABRIC 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 Work Phone: [facility] 01-25-2024 13:17-0400 SaO2% (BldA) [Mass fraction] 97 % Harriett Castillo FIBERGLASS QUALITY TECHNICIAN.FABRIC 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 Work Phone: [facility] 01-25-2024 13:17-0400 Systolic blood pressure 110 mm[Hg] Harriett Castillo FIBERGLASS QUALITY TECHNICIAN.FABRIC 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 Work Phone: [facility] 11-27-2023 13:51-0400 Body mass index (BMI) [Ratio] 33.53 kg/m2 Harriett Castillo F[employer]ERGLASS QUALITY TECHNICIAN.FABRIC 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 Work Phone: [facility] 11-27-2023 13:51-0400 Body temperature 98.4 [degF] Harriett Castillo FIBERGLASS QUALITY TECHNICIAN.FABRIC 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 Work Phone: [facility] 11-27-2023 13:51-0400 Body weight 88.6 kg Harriett Castillo FIBERGLASS QUALITY TECHNICIAN.FABRIC 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 Work Phone: [facility] 11-27-2023 13:51-0400 Diastolic blood pressure 76 mm[Hg] Harriett Castillo FIBERGLASS QUALITY TECHNICIAN.FABRIC 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 Work Phone: [facility] 11-27-2023 13:51-0400 Heart rate 95 /min Harriett Castillo FIBERGLASS QUALITY TECHNICIAN.FABRIC 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 Work Phone: [facility] 11-27-2023 13:51-0400 Respiratory rate 18 /min Harriett Castillo FIBERGLASS QUALITY TECHNICIAN.FABRIC 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 Work Phone: [facility] 11-27-2023 13:51-0400 SaO2% (BldA) [Mass fraction] 97 % Harriett Castillo FIBERGLASS QUALITY TECHNICIAN.FABRIC 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 Work Phone: [facility] 11-27-2023 13:51-0400 Systolic blood pressure 111 mm[Hg] Harriett Castillo FIBERGLASS QUALITY TECHNICIAN.FABRIC 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 Work Phone: [facility] 09-07-2023 09:29-0400 Body mass index (BMI) [Ratio] 34.25 kg/m2 Tim Hayes MD Work Phone: [facility] 09-07-2023 09:29-0400 Body temperature 98.4 [degF] Tim Hayes MD Work Phone: [facility] 09-07-2023 09:29-0400 Body weight 90.5 kg Tim Hayes MD Work Phone: [facility] 09-07-2023 09:29-0400 Diastolic blood pressure 70 mm[Hg] Tim Hayes MD Work Phone: [facility] 09-07-2023 09:29-0400 Heart rate 86 /min Tim Hayes MD Work Phone: [facility] 09-07-2023 09:29-0400 Respiratory rate 16 /min Tim Hayes MD Work Phone: [facility] 09-07-2023 09:29-0400 SaO2% (BldA) [Mass fraction] 97 % Tim Hayes MD Work Phone: [facility] 09-07-2023 09:29-0400 Systolic blood pressure 132 mm[Hg] Tim Hayes MD Work Phone: [facility] 03-17-2023 07:47-0500 Body temperature 98.8 [degF] Camille Bogner PA-C Work Phone: [facility] 03-17-2023 07:47-0500 Body weight 98.88 kg Camille Bogner PA-C Work Phone: [facility] 03-17-2023 07:47-0500 Diastolic blood pressure 81 mm[Hg] Camille Bogner PA-C Work Phone: [facility] 03-17-2023 07:47-0500 Heart rate 75 /min Camille Bogner PA-C Work Phone: [facility] 03-17-2023 07:47-0500 Respiratory rate 18 /min Camille Bogner PA-C Work Phone: [facility] 03-17-2023 07:47-0500 SaO2% (BldA) [Mass fraction] 98 % Camille Bogner PA-C Work Phone: [facility] 03-17-2023 07:47-0500 Systolic blood pressure 118 mm[Hg] Camille Hall PA-C Work Phone: [facility] 01-12-2023 09:09-0400 Body height 160.[address] Skyler Rodriges Work Phone: [facility] 01-12-2023 09:09-0400 Body mass index (BMI) [Ratio] 38.6 kg/m2 Dr. Skyler Rodriges Work Phone: [facility] 01-12-2023 09:09-0400 Body temperature 98.1 [degF] Dr. Skyler Rodriges Work Phone: [facility] 01-12-2023 09:09-0400 Body weight 98.[address] Skyler Rodriges Work Phone: [facility] 01-12-2023 09:09-0400 Diastolic blood pressure 60 mm[Hg] Dr. Skyler Rodriges Work Phone: [facility] 01-12-2023 09:09-0400 Heart rate 64 /min Dr. Skyler Rodriges Work Phone: [facility] 01-12-2023 09:09-0400 Respiratory rate 16 /min Dr. Sklyer Rodriges Work Phone: [facility] 01-12-2023 09:09-0400 SaO2% (BldA) [Mass fraction] 97 % Dr. Skyler Rodriges Work Phone: [facility] 01-12-2023 09:09-0400 Systolic blood pressure 108 mm[Hg] Dr. Skyler Rodriges Work Phone: [facility] 10-03-2022 10:07-0400 Body height 160.[address] Skyler Rodriges Work Phone: [facility] 10-03-2022 10:07-0400 Body mass index (BMI) [Ratio] 39.6 kg/m2 Dr. Skyler Rodriges Work Phone: [facility] 10-03-2022 10:07-0400 Body temperature 98.4 [degF] Dr. Skyler Rodriges Work Phone: [facility] 10-03-2022 10:07-0400 Body weight 101.[address] Skyler Rodriges Work Phone: [facility] 10-03-2022 10:07-0400 Diastolic blood pressure 84 mm[Hg] Dr. Skyler Rodriges Work Phone: [facility] 10-03-2022 10:07-0400 Heart rate 82 /min Dr. Skyler Rodriges Work Phone: [facility] 10-03-2022 10:07-0400 Respiratory rate 16 /min Dr. Skyler Rodriges Work Phone: [facility] 10-03-2022 10:07-0400 SaO2% (BldA) [Mass fraction] 97 % Dr. Skyler Rodriges Work Phone: [facility] 10-03-2022 10:07-0400 Systolic blood pressure 120 mm[Hg] Dr. Skyler Rodriges Work Phone: [facility] 09-03-2022 10:22-0400 Body mass index (BMI) [Ratio] 39.6 kg/m2 Dr. Skyler Rodriges Work Phone: [facility] 09-03-2022 10:22-0400 Body weight 101.[address] Skyler Rodriges Work Phone: [facility] 09-03-2022 10:22-0400 Diastolic blood pressure 77 mm[Hg] Dr. Skyler Rodriges Work Phone: [facility] 09-03-2022 10:22-0400 Heart rate 62 /min Dr. Skyler Rodriges Work Phone: [facility] 09-03-2022 10:22-0400 SaO2% (BldA) [Mass fraction] 95 % Dr. Skyler Rodriges Work Phone: [facility] 09-03-2022 10:22-0400 Systolic blood pressure 124 mm[Hg] Dr. Skyler Rodriges Work Phone: [facility] 08-27-2022 15:31-0400 Body mass index (BMI) [Ratio] 40.7 kg/m2 Dr. Skyler Rodriges Work Phone: [facility] 08-27-2022 15:31-0400 Body temperature 98.3 [degF] Dr. Skyler Rodriges Work Phone: [facility] 08-27-2022 15:31-0400 Body weight 104.[address] Skyler Rodriges Work Phone: [facility] 08-27-2022 15:31-0400 Diastolic blood pressure 84 mm[Hg] Dr. Skyler Rodriges Work Phone: [facility] 08-27-2022 15:31-0400 Heart rate 91 /min Dr. Skyler Rodriges Work Phone: [facility] 08-27-2022 15:31-0400 Respiratory rate 12 /min Dr. Skyler Rodriges Work Phone: [facility] 08-27-2022 15:31-0400 SaO2% (BldA) [Mass fraction] 98 % Dr. Skyler Rodriges Work Phone: [facility] 08-27-2022 15:31-0400 Systolic blood pressure 136 mm[Hg] Dr. Skyler Rodriges Work Phone: [facility] 08-15-2022 21:58-0400 Diastolic blood pressure 82 mm[Hg] Dr. Skyler Rodriges Work Phone: [facility] 08-15-2022 21:58-0400 Heart rate 64 /min Dr. Skyler Rodriges Work Phone: [facility] 08-15-2022 21:58-0400 Respiratory rate 15 /min Dr. Skyler Rodriges Work Phone: [facility] 08-15-2022 21:58-0400 SaO2% (BldA) [Mass fraction] 97 % Dr. Skyler Rodriges Work Phone: [facility] 08-15-2022 21:58-0400 Systolic blood pressure 126 mm[Hg] Dr. Skyler Rodriges Work Phone: [facility] 08-15-2022 20:24-0400 Body height 160.[address] Skyler Rodriges Work Phone: [facility] 08-15-2022 20:24-0400 Body mass index (BMI) [Ratio] 40.1 kg/m2 Dr. Skyler Rodriges Work Phone: [facility] 08-15-2022 20:24-0400 Body temperature 96.7 [degF] Dr. Skyler Rodriges Work Phone: [facility] 08-15-2022 20:24-0400 Body weight 102.[address] Skyler Rodriges Work Phone: [facility] 07-11-2022 08:36-0400 Body mass index (BMI) [Ratio] 41.6 kg/m2 Dr. Skyler Rodriges Work Phone: [facility] 07-11-2022 08:36-0400 Body weight 106.[address] Skyler Rodriges Work Phone: [facility] 07-11-2022 08:36-0400 Diastolic blood pressure 73 mm[Hg] Dr. Skyler Rodriges Work Phone: [facility] 07-11-2022 08:36-0400 Heart rate 67 /min Dr. Skyler Rodriges Work Phone: [facility] 07-11-2022 08:36-0400 SaO2% (BldA) [Mass fraction] 96 % Dr. Skyler Rodriges Work Phone: [facility] 07-11-2022 08:36-0400 Systolic blood pressure 106 mm[Hg] Dr. Skyler Rodriges Work Phone: [facility] 07-02-2022 10:10-0400 Body mass index (BMI) [Ratio] 41.3 kg/m2 Dr. Skyler Rodriges Work Phone: [facility] 07-02-2022 10:10-0400 Body temperature 96.7 [degF] Dr. Skyler Rodriges Work Phone: [facility] 07-02-2022 10:10-0400 Body weight 105.[address] Skyler Rodriges Work Phone: [facility] 07-02-2022 10:10-0400 Diastolic blood pressure 60 mm[Hg] Dr. Skyler Rodriges Work Phone: [facility] 07-02-2022 10:10-0400 Heart rate 76 /min Dr. Skyler Rodriges Work Phone: [facility] 07-02-2022 10:10-0400 Respiratory rate 16 /min Dr. Skyler Rodriges Work Phone: [facility] 07-02-2022 10:10-0400 SaO2% (BldA) [Mass fraction] 96 % Dr. Skyler Rodriges Work Phone: [facility] 07-02-2022 10:10-0400 Systolic blood pressure 104 mm[Hg] Dr. Skyler Rodriges Work Phone: [facility] 04-02-2022 10:02-0500 Body height 160.[address] Skyler Rodriges Work Phone: [facility] Work Phone: 04-02-2022 10:02-0500 Body mass index (BMI) [Ratio] 41.4 kg/m2 Dr. Skyler Rodriges Work Phone: [facility] Work Phone: 04-02-2022 10:02-0500 Body temperature 97.5 [degF] Dr. Skyler Rodriges Work Phone: [facility] Work Phone: 04-02-2022 10:02-0500 Body weight 106.[address] Skyler Rodriges Work Phone: [facility] Work Phone: 04-02-2022 10:02-0500 Diastolic blood pressure 88 mm[Hg] Dr. Skyler Rodriges Work Phone: [facility] Work Phone: 04-02-2022 10:02-0500 Heart rate 97 /min Dr. Skyler Rodriges Work Phone: [facility] Work Phone: 04-02-2022 10:02-0500 SaO2% (BldA) [Mass fraction] 95 % Dr. Skyler Rodriges Work Phone: [facility] Work Phone: 04-02-2022 10:02-0500 Systolic blood pressure 128 mm[Hg] Dr. Skyler Rodriges Work Phone: [facility] Work Phone: 03-31-2022 13:43-0500 Body temperature 98.06 [degF] MHAENDRA FAJARDO F[employer]ERGLASS QUALITY TECHNICIAN-FABRIC 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 [facility] 03-31-2022 13:43-0500 Diastolic Blood Pressure Non-Invasive 94 1 MAHENDRA RIGOER F[employer]ERGLASS QUALITY TECHNICIAN-FABRIC 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 [facility] 03-31-2022 13:43-0500 Heart rate 101 /min MAHENDRA KAPPER F[employer]ERGL[employer] QUALITY TECHNICIAN-FABRIC 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 [facility] 03-31-2022 13:43-0500 Reason For Taking VItal Signs MAHENDRAMirella SIERRAER FIBERGLASS QUALITY TECHNICIAN-FABRIC 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 [facility] 03-31-2022 13:43-0500 Respiratory rate 18 /min MAHENDRA KAPPER F[employer]ERGLASS QUALITY TECHNICIAN-FABRIC 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 [facility] 03-31-2022 13:43-0500 Systolic Blood Pressure Non-Invasive 143 1 MAHENDRA KAPPER F[employer]ERGL[employer] QUALITY TECHNICIAN-FABRIC 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 [facility] 03-31-2022 11:48-0500 Heart rate 85 /min MAHENDRA KAPPER F[employer]ERGLASS QUALITY TECHNICIAN-FABRIC 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 [facility] 03-31-2022 11:48-0500 Respiratory rate 16 /min MAHENDRA KAPPER F[employer]ERGLASS QUALITY TECHNICIAN-FABRIC 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 [facility] 03-31-2022 11:30-0500 Body temperature 98.42 [degF] MAHENDRA KAPPER F[employer]ERGL[employer] QUALITY TECHNICIAN-FABRIC 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 [facility] 03-31-2022 11:30-0500 Diastolic Blood Pressure Non-Invasive 90 1 MAHENDRA KAPPER F[employer]ERGL[employer] QUALITY TECHNICIAN-FABRIC 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 [facility] 03-31-2022 11:30-0500 Heart rate 96 /min MAHENDRA KAPPER F[employer]ERGLASS QUALITY TECHNICIAN-FABRIC 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 [facility] 03-31-2022 11:30-0500 Reason For Taking VItal Signs MAHENDRA KAPPER FIBERGLASS QUALITY TECHNICIAN-FABRIC 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 [facility] 03-31-2022 11:30-0500 Respiratory rate 18 /min MAHENDRA RIGOER F[employer]ERGLASS QUALITY TECHNICIAN-FABRIC 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 [facility] 03-31-2022 11:30-0500 Systolic Blood Pressure Non-Invasive 139 1 MAHENDRA SIERRAER F[employer]ERGLASS QUALITY TECHNICIAN-FABRIC 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 [facility] 03-31-2022 10:39-0500 Heart rate 93 /min MAHENDRA FAJARDO F[employer]ERGLASS QUALITY TECHNICIAN-FABRIC 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 [facility] 03-31-2022 07:44-0500 Body temperature 98.06 [degF] MAHENDRA SIERRAER F[employer]ERGL[employer] QUALITY TECHNICIAN-FABRIC 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 [facility] 03-31-2022 07:44-0500 Diastolic Blood Pressure Non-Invasive 94 1 MAHENDRA SIERRAER F[employer]ERGL[employer] QUALITY TECHNICIAN-FABRIC 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 [facility] 03-31-2022 07:44-0500 Heart rate 96 /min MAHENDRA SIERRAER F[employer]ERGL[employer] QUALITY TECHNICIAN-FABRIC 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 [facility] 03-31-2022 07:44-0500 Reason For Taking VItal Signs MAHENDRA FAJARDO F[employer]ERGLASS QUALITY TECHNICIAN-FABRIC 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 [facility] 03-31-2022 07:44-0500 Systolic Blood Pressure Non-Invasive 137 1 MAHENDRA SIERRAER F[employer]ERGL[employer] QUALITY TECHNICIAN-FABRIC 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 [facility] 03-31-2022 06:26-0500 Heart rate 96 /min MAHENDRA SIERRAER F[employer]ERGL[employer] QUALITY TECHNICIAN-FABRIC 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 [facility] 03-30-2022 20:04-0500 Heart rate 82 /min MAHENDRA SIERRAER F[employer] QUALITY TECHNICIAN-FABRIC 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 [facility] 03-30-2022 12:29-0500 Body temperature 97.16 [degF] MAHENDRA SIERRAER F[employer]ERGL[employer] QUALITY TECHNICIAN-FABRIC 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 [facility] 03-30-2022 09:36-0500 Body weight 106.2 kg MAHENDRA KAPPER F[employer] QUALITY TECHNICIAN-FABRIC 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 [facility] 03-30-2022 05:50-0500 Body weight 165 kg MAHENDRA KAPPER F[employer]ERGL[employer] QUALITY TECHNICIAN-FABRIC 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 [facility] 03-30-2022 03:35-0500 Heart rate 106 /min MAHENDRA KAPPER F[employer]ERGL[employer] QUALITY TECHNICIAN-FABRIC 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 [facility] 03-29-2022 22:40-0500 Heart rate 99 /min MAHENDRA KAPPER F[employer]ERGL[employer] QUALITY TECHNICIAN-FABRIC 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 [facility] 03-28-2022 20:31-0500 Body height 160 cm MAHENDRA KAPPER F[employer]ERGLASS QUALITY TECHNICIAN-FABRIC 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 [facility] 03-28-2022 20:31-0500 Body weight 106.4 kg MAHENDRA KAPPER F[employer] QUALITY TECHNICIAN-FABRIC 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 [facility] 03-28-2022 20:31-0500 Body weight 41.56 kg/m2 MAHENDRA KAPPER F[employer]ERGLASS QUALITY TECHNICIAN-FABRIC 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 [facility] 03-28-2022 15:47-0500 Body height 160 cm MAHENDRA KAPPER F[employer]ERGLASS QUALITY TECHNICIAN-FABRIC 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 [facility] 03-28-2022 14:14-0500 Body height 160.[address] Skyler Rodriges Work Phone: [facility] Work Phone: 03-28-2022 14:14-0500 Body mass index (BMI) [Ratio] 42 kg/m2 Dr. Skyler Rodriges Work Phone: [facility] Work Phone: 03-28-2022 14:14-0500 Body temperature 98.6 [degF] Dr. Skyler Rodriges Work Phone: [facility] Work Phone: 03-28-2022 14:14-0500 Body weight 107.[address] Skyler Rodriges Work Phone: [facility] Work Phone: 03-28-2022 14:14-0500 Diastolic blood pressure 112 mm[Hg] Dr. Skyler Rodriges Work Phone: [facility] Work Phone: 03-28-2022 14:14-0500 Heart rate 125 /min Dr. Skyler Rodriges Work Phone: [facility] Work Phone: 03-28-2022 14:14-0500 Respiratory rate 18 /min Dr. Skyler Rodriges Work Phone: [facility] Work Phone: 03-28-2022 14:14-0500 SaO2% (BldA) [Mass fraction] 90 % Dr. Skyler Rodriges Work Phone: [facility] Work Phone: 03-28-2022 14:14-0500 Systolic blood pressure 148 mm[Hg] Dr. Skyler Rodriges Work Phone: [facility] Work Phone: 03-13-2022 09:49-0500 Body mass index (BMI) [Ratio] 43.7 kg/m2 Dr. Skyler Rodriges Work Phone: [facility] Work Phone: 03-13-2022 09:49-0500 Body weight 112.[address] Skyler Rodriges Work Phone: [facility] Work Phone: 03-13-2022 09:49-0500 Diastolic blood pressure 83 mm[Hg] Dr. Skyler Rodriges Work Phone: [facility] Work Phone: 03-13-2022 09:49-0500 Heart rate 92 /min Dr. Skyler Rodriges Work Phone: [facility] Work Phone: 03-13-2022 09:49-0500 SaO2% (BldA) [Mass fraction] 93 % Dr. Skyler Rodriges Work Phone: [facility] Work Phone: 03-13-2022 09:49-0500 Systolic blood pressure 121 mm[Hg] Dr. Skyler Rodriges Work Phone: [facility] Work Phone: 02-27-2022 11:18-0500 Body mass index (BMI) [Ratio] 43.2 kg/m2 Dr. Skyler Rodriges Work Phone: [facility] Work Phone: 02-27-2022 11:18-0500 Body weight 110.[address] Skyler Rodriges Work Phone: [facility] Work Phone: 02-27-2022 11:18-0500 Diastolic blood pressure 89 mm[Hg] Dr. Skyler Rodriges Work Phone: [facility] Work Phone: 02-27-2022 11:18-0500 Systolic blood pressure 121 mm[Hg] Dr. Skyler Rodriges Work Phone: [facility] Work Phone: 02-07-2022 14:30-0400 Body mass index (BMI) [Ratio] 43.4 kg/m2 Dr. Skyler Rodriges Work Phone: [facility] Work Phone: 02-07-2022 14:30-0400 Body weight 111.[address] Skyler Rodriges Work Phone: [facility] Work Phone: 02-07-2022 14:30-0400 Diastolic blood pressure 89 mm[Hg] Dr. Skyler Rodriges Work Phone: [facility] Work Phone: 02-07-2022 14:30-0400 Systolic blood pressure 138 mm[Hg] Dr. Skyler Rodriges Work Phone: [facility] Work Phone: 12-26-2021 13:20-0400 Body height 160.[address] Skyler Rodriges Work Phone: [facility] Work Phone: 12-26-2021 13:19-0400 Body mass index (BMI) [Ratio] 45.6 kg/m2 Dr. Skyler Rodriges Work Phone: [facility] Work Phone: 12-26-2021 13:19-0400 Body weight 116.[address] Skyler Rodriges Work Phone: [facility] Work Phone: 12-26-2021 13:19-0400 Diastolic blood pressure 73 mm[Hg] Dr. Skyler Rodriges Work Phone: [facility] Work Phone: 12-26-2021 13:19-0400 Systolic blood pressure 104 mm[Hg] Dr. Skyler Rodriges Work Phone: [facility] Work Phone: 12-18-2021 10:08-0400 Body mass index (BMI) [Ratio] 45.7 kg/m2 Dr. Skyler Rodriges Work Phone: [facility] Work Phone: 12-18-2021 10:08-0400 Body temperature 96.8 [degF] Dr. Skyler Rodriges Work Phone: [facility] Work Phone: 12-18-2021 10:08-0400 Body weight 117.[address] Skyler Rodriges Work Phone: [facility] Work Phone: 12-18-2021 10:08-0400 Diastolic blood pressure 84 mm[Hg] Dr. Skyler Rodriges Work Phone: [facility] Work Phone: 12-18-2021 10:08-0400 Heart rate 67 /min Dr. Skyler Rodriges Work Phone: [facility] Work Phone: 12-18-2021 10:08-0400 Respiratory rate 16 /min Dr. Skyler Rodriges Work Phone: [facility] Work Phone: 12-18-2021 10:08-0400 SaO2% (BldA) [Mass fraction] 97 % Dr. Skyler Rodriges Work Phone: [facility] Work Phone: 12-18-2021 10:08-0400 Systolic blood pressure 108 mm[Hg] Dr. Skyler Rodriges Work Phone: [facility] Work Phone: 10-01-2021 17:53-0400 Diastolic blood pressure 82 mm[Hg] Dr. Skyler Rodriges Work Phone: [facility] Work Phone: 10-01-2021 17:53-0400 Systolic blood pressure 140 mm[Hg] Dr. Skyler Rodriges Work Phone: [facility] Work Phone: 10-01-2021 16:26-0400 Body mass index (BMI) [Ratio] 53.1 kg/m2 Dr. Skyler Rodriegs Work Phone: [facility] Work Phone: 10-01-2021 16:26-0400 Body temperature 98.4 [degF] Dr. Skyler Rodriges Work Phone: [facility] Work Phone: 10-01-2021 16:26-0400 Body weight 136.[address] Skyler Rodriges Work Phone: [facility] Work Phone: 10-01-2021 16:26-0400 Heart rate 104 /min Dr. Skyler Rodriges Work Phone: [facility] Work Phone: 10-01-2021 16:26-0400 Respiratory rate 18 /min Dr. Skyler Rodriges Work Phone: [facility] Work Phone: 10-01-2021 16:26-0400 SaO2% (BldA) [Mass fraction] 96 % Dr. Skyler Rodriges Work Phone: [facility] Work Phone: 10-01-2021 15:44-0400 Body temperature 98.1 [degF] Issac Ghulam FIBERGLASS QUALITY TECHNICIAN.FABRIC 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 Work Phone: [facility] 10-01-2021 15:44-0400 Body weight 121.75 kg Issac Ghulam FIBERGLASS QUALITY TECHNICIAN.FABRIC 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 Work Phone: [facility] 10-01-2021 15:44-0400 Diastolic blood pressure 78 mm[Hg] Issac Ghulam FIBERGLASS QUALITY TECHNICIAN.FABRIC 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 Work Phone: [facility] 10-01-2021 15:44-0400 Heart rate 103 /min Issac Ghulam FIBERGLASS QUALITY TECHNICIAN.FABRIC 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 Work Phone: [facility] 10-01-2021 15:44-0400 Respiratory rate 16 /min Issac Ghulam FIBERGLASS QUALITY TECHNICIAN.FABRIC 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 Work Phone: [facility] 10-01-2021 15:44-0400 SaO2% (BldA) [Mass fraction] 97 % Issac Parmar APRN.FABRIC 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 Work Phone: [facility] 10-01-2021 15:44-0400 Systolic blood pressure 126 mm[Hg] Issac Parmar APRN.FABRIC 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 Work Phone: [facility] 09-19-2021 14:54-0400 Body mass index (BMI) [Ratio] 47.9 kg/m2 Dr. Skyler Rodriges Work Phone: [facility] Work Phone: 09-19-2021 14:54-0400 Body temperature 98.5 [degF] Dr. Skyler Rodriges Work Phone: [facility] Work Phone: 09-19-2021 14:54-0400 Body weight 122.[address] Skyler Rodriges Work Phone: [facility] Work Phone: 09-19-2021 14:54-0400 Diastolic blood pressure 70 mm[Hg] Dr. Skyler Rodriges Work Phone: [facility] Work Phone: 09-19-2021 14:54-0400 Heart rate 93 /min Dr. Skyler Rodriges Work Phone: [facility] Work Phone: 09-19-2021 14:54-0400 Respiratory rate 14 /min Dr. Skyler Rodriges Work Phone: [facility] Work Phone: 09-19-2021 14:54-0400 SaO2% (BldA) [Mass fraction] 99 % Dr. Skyler Rodriges Work Phone: [facility] Work Phone: 09-19-2021 14:54-0400 Systolic blood pressure 112 mm[Hg] Dr. Skyler Rodriges Work Phone: [facility] Work Phone: 06-26-2021 10:15-0400 Body height 160.[address] Skyler Rodriges Work Phone: [facility] Work Phone: 06-26-2021 10:15-0400 Body weight 121.[address] Skyler Rodriges Work Phone: [facility] Work Phone: 06-11-2021 13:09-0500 Body mass index (BMI) [Ratio] 46.1 kg/m2 Dr. Skyler Rodriges Work Phone: [facility] Work Phone: 06-11-2021 13:09-0500 Body temperature 98.5 [degF] Dr. Skyler Rodriges Work Phone: [facility] Work Phone: 06-11-2021 13:09-0500 Body weight 122.[address] Skyler Rodriges Work Phone: [facility] Work Phone: 06-11-2021 13:09-0500 Diastolic blood pressure 88 mm[Hg] Dr. Skyler Rodriges Work Phone: [facility] Work Phone: 06-11-2021 13:09-0500 Heart rate 93 /min Dr. Skyler Rodriges Work Phone: [facility] Work Phone: 06-11-2021 13:09-0500 Respiratory rate 14 /min Dr. Skyler Rodriges Work Phone: [facility] Work Phone: 06-11-2021 13:09-0500 SaO2% (BldA) [Mass fraction] 98 % Dr. Skyler Rodriges Work Phone: [facility] Work Phone: 06-11-2021 13:09-0500 Systolic blood pressure 122 mm[Hg] Dr. Skyler Rodriges Work Phone: [facility] Work Phone: 05-24-2021 09:10-0500 Body mass index (BMI) [Ratio] 47.5 kg/m2 Dr. Skyler Rodriges Work Phone: [facility] Work Phone: 05-24-2021 09:10-0500 Body temperature 98.8 [degF] Dr. Skyler Rodriges Work Phone: [facility] Work Phone: 05-24-2021 09:10-0500 Body weight 121.[address] Skyler Rodriges Work Phone: [facility] Work Phone: 05-24-2021 09:10-0500 Diastolic blood pressure 76 mm[Hg] Dr. Skyler Rodriges Work Phone: [facility] Work Phone: 05-24-2021 09:10-0500 Heart rate 85 /min Dr. Skyler Rodriges Work Phone: [facility] Work Phone: 05-24-2021 09:10-0500 Respiratory rate 14 /min Dr. Skyler Rodriges Work Phone: [facility] Work Phone: 05-24-2021 09:10-0500 SaO2% (BldA) [Mass fraction] 98 % Dr. Skyler Rodriges Work Phone: [facility] Work Phone: 05-24-2021 09:10-0500 Systolic blood pressure 114 mm[Hg] Dr. Skyler Rodriges Work Phone: [facility] Work Phone: 05-08-2021 14:40-0500 Body mass index (BMI) [Ratio] 48 kg/m2 Dr. Skyler Rodriges Work Phone: [facility] Work Phone: 05-08-2021 14:40-0500 Body weight 123.[address] Skyler Rodriges Work Phone: [facility] Work Phone: 05-08-2021 14:40-0500 Diastolic blood pressure 60 mm[Hg] Dr. Skyler Rodriges Work Phone: [facility] Work Phone: 05-08-2021 14:40-0500 Systolic blood pressure 100 mm[Hg] Dr. Skyler Rodriges Work Phone: [facility] Work Phone: Encounters Encounter Date Encounter Type Care Provider Facility Start: [facility]14[facility] Start: 08-31-2024 End: 08-31-2024 Patient encounter procedure Jennifer SHORT -[facility] Work Phone: Start: 08-31-2024 End: 08-31-[address] Skyler Rodriges MD Work Phone: [facility] Work Phone: Start: 08-19-2024 End: 08-19-2024 Patient encounter procedure Fercho SHORT -[facility] Work Phone: Start: 08-19-2024 End: 08-19-2024 ambulatory Skyler Rodriges Facility:[facility] Start: 08-17-2024 ambulatory Chaim Law Facility :[facility] Start: 07-29-2024 ambulatory Skyler Rodriges Facili ty:[facility] Start: 07-06-2024 End: 07-07-2024 Follow-up encounter Finesse SHORT Work Phone: [facility] Comment on above: Results Start: 07-05-2024 End: 07-05-2024 ambulatory [facility] Facility:[facility] Start: 07-05-2024 End: 07-05-2024 Patient encounter procedure Patricia Germain FIBERGLASS QUALITY TECHNICIAN.FABRIC 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 Work Phone: [facility] Comment on above: Urinary frequency (P rimary Dx); Vaginal discharge Start: 06-17-2024 End: 06-17-[address] Skyler Rodriges MD Work Phone: [facility] Work Phone: Start: 06-17-2024 End: 06-17-[address] Skyler Rodriges MD -Laboratory, [facility] Start: 06-17-2024 End: 06-17-2024 Patient encounter procedure Fercho SHORT -[facility] Work Phone: Start: 06-17-2024 End: 06-17-2024 ambulatory [facility] Facility:[facility] Start: 06-17-2024 End: 06-17-2024 ambulatory [facility] Facility:[facility] Start: 06-15-2024 End: 06-15-2024 ambulatory [facility] Facility:[facility] Start: 06-15-2024 End: 06-15-2024 Patient encounter procedure Harriett Castillo FIBERGLASS QUALITY TECHNICIAN.FABRIC 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 Work Phone: [facility] Comment on above: Pain, dental (Primar y Dx) Start: 06-10-2024 End: 06-10-2024 Patient encounter procedure Jennifer SHORT -[facility] Work Phone: Start: 06-10-2024 End: 06-10-2024 ambulatory Jennifer Darnell Facility:[facility] Start: 06-08-2024 End: 06-08-[address] Bruce Hurtado MD -[facility] Work Phone: Start: 06-08-2024 End: 06-08-2024 ambulatory [facility] Facility:[facility] Start: 04-29-2024 End: 04-29-[address] Skyler Rodriges MD -[facility] Work Phone: Start: 04-29-2024 End: 04-29-2024 ambulatory [facility] Facility:[facility] Start: 04-09-2024 End: 04-09-2024 ambulatory [facility] Facility:[facility] Start: 04-09-2024 End: 04-09-2024 Patient encounter procedure Finesse SHORT Work Phone: [facility] Comment on above: Skin infection (Prim swetha Dx) Start: 03-31-2024 End: 03-31-2024 [facility] Facility:[facility] Start: 03-31-2024 End: 03-31-2024 Office outpatient visit 25 minutes Clayton Choudhury APRN.FABRIC 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 Work Phone: [facility] Comment on above: Lower respiratory tr act infection (Primary Dx) Start: 02-22-2024 End: 02-22-2024 ambulatory [facility] Facility:[facility] Start: 02-22-2024 End: 02-22-2024 ambulatory [facility] Facility:[facility] Start: 01-28-2024 End: 01-29-2024 Telephone encounter Finesse SHORT Work Phone: [facility] Comment on above: Results Start: 01-28-2024 End: 01-28-2024 Subsequent hospital visit by physician [facility] Work Phone: Radiology Comment on above: URI, acute [J06.9] Start: 01-28-2024 End: 01-28-2024 ambulatory [facility] Facility:[facility] Start: 01-28-2024 End: 01-28-2024 Patient encounter procedure Harriett Castillo APRN.FABRIC 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 Work Phone: [facility] Comment on above: URI, acute (Primary Dx); Acute cough Start: 01-25-2024 End: 01-25-2024 Subsequent hospital visit by physician [facility] Work Phone: Radiology Comment on above: Wrist pain, right [M 25.531] Start: 01-25-2024 End: 01-25-2024 ambulatory [facility] Facility:[facility] Start: 01-25-2024 End: 01-25-2024 Patient encounter procedure Harriett Castillo FIBERGLASS QUALITY TECHNICIAN.FABRIC 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 Work Phone: [facility] Comment on above: Wrist pain, right (P rimary Dx); Hand pain, right Start: 01-01-2024 End: 01-01-2024 ambulatory [facility] Facility:[facility] Start: 12-09-2023 End: 12-09-2023 ambulatory [facility] Facility:[facility] Start: 12-08-2023 End: 12-08-2023 Emergency department patient visit [facility] Facility:[facility] Start: 11-29-2023 End: 11-29-2023 Telephone encounter Jermaine Grayson APRN.FABRIC 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 Work Phone: [facility] Comment on above: Results Start: 11-28-2023 End: 11-28-2023 Telephone encounter Jermaine Grayson APRN.FABRIC 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 Work Phone: [facility] Comment on above: Results Start: 11-27-2023 End: 11-27-2023 ambulatory [facility] Facility:[facility] Start: 11-27-2023 End: 11-27-2023 Patient encounter procedure Harriett Castillo APRN.FABRIC 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 Work Phone: [facility] Comment on above: Urinary frequency (P rimary Dx); Missed menses; Vaginal discharge Start: 10-30-2023 ambulatory [facility] Facili ty:[facility] Start: 09-30-2023 End: 09-30-2023 ambulatory [facility] Facility:[facility] Start: 09-30-2023 End: 09-30-2023 ambulatory Skyler Rodriges Facility:[facility] Start: 09-15-2023 End: 09-15-2023 ambulatory Bibiana Watson Facility:[facility] Start: 09-07-2023 End: 09-07-2023 ambulatory SKYLER RODRIGES Facility:[facility] Start: 09-07-2023 End: 09-07-2023 Office outpatient visit 15 minutes Tim Hayes MD Work Phone: [facility] Comment on above: Viral syndrome (Prim swetha Dx) Start: 04-29-2023 End: 04-29-[address] Skyler Rodriges Work Phone: [facility] Work Phone: Start: 04-29-2023 End: 04-29-[address] Skyler Rodriges Work Phone: [facility]-Laboratory, [place] Start: 04-27-2023 End: 04-27-[address] Skyler Rodriges Work Phone: [facility] Work Phone: Start: 03-17-2023 End: 03-17-2023 Office outpatient visit 15 minutes Camille Hall PA-C Work Phone: [facility] Comment on above: Acute cough (Primary Dx) Start: 01-12-2023 End: 01-12-[address] Skyler Rodriges Work Phone: [facility] Work Phone: Start: 10-03-2022 End: 10-03-[address] Skyler Rodriges Work Phone: [facility] Work Phone: Start: 10-03-2022 End: 10-03-[address] Skyler Rodriges Work Phone: [facility] Start: 09-03-2022 End: 09-03-[address] Skyler Rodriges Work Phone: [facility] Start: 08-27-2022 End: 08-27-[address] Skyler Rodriges Work Phone: [facility] Start: 08-15-2022 End: 08-15-2022 Emergency department patient visit Dr. Skyler Rodriges Work Phone: [facility]-Emergency Department Start: 07-11-2022 End: 07-11-[address] Skyler Rodriges Work Phone: [facility] Start: 07-02-2022 End: 07-02-[address] Skyler Rodriges Work Phone: [facility] Start: 04-02-2022 End: 04-02-[address] Skyler Rodriges Work Phone: [facility] Start: 04-01-2022 End: 04-01-[address] Skyler Rodriges Work Phone: [facility] Work Phone: Start: 04-01-2022 End: 04-01-[address] Skyler Rodriges Work Phone: [facility] Start: 03-28-2022 End: 03-31-2022 Evaluation and management of inpatient DR. KRANTHI HARRIS MD. Facility:[facility] Start: 03-28-2022 End: 03-31-2022 Evaluation and management of inpatient MAHENDRA FAJARDO FIBERGLASS QUALITY TECHNICIAN-FABRIC 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 [facility] Start: 03-28-2022 End: 03-28-2022 Emergency department patient visit Dr. Skyler Rodriges Work Phone: [facility]Emergency Department Start: 03-17-2022 End: 03-17-[address] Skyler Rodriges Work Phone: [facility] Work Phone: Start: 03-17-2022 End: 03-17-[address] [facility] Start: 03-13-2022 End: 03-13-[address] Skyler Rodriges Work Phone: [facility] Start: 02-27-2022 End: 02-27-[address] [facility] Start: 02-27-2022 End: 02-27-[address] [facility] Rodriges [facility] Start: 02-11-2022 End: 02-11-[address] [facility] Start: 02-07-2022 End: 02-07-[address] Sk[facility] Rodriges [facility] Start: 12-26-2021 End: 12-26-[address] Skyler Rodriges Work Phone: [facility] Work Phone: Start: 12-26-2021 End: 12-26-[address] [facility] Start: 12-26-2021 End: 12-26-[address] Skyler Rodriges Work Phone: [facility] Start: 12-26-2021 End: 12-26-[address] Skyler Rodriges Work Phone: [facility] Start: 12-18-2021 End: 12-18-[address] Skyler Rodriges Work Phone: [facility] Start: 10-01-2021 End: 10-01-2021 Emergency department patient visit Dr. Skyler Rodriges Work Phone: [facility]-Emergency Department Start: 10-01-2021 End: 10-01-2021 Patient encounter procedure Issac Parmar APRN.CNP Work Phone: [facility] Comment on above: Headache, unspecifie d headache type (Primary Dx); Vision loss Start: 09-19-2021 End: 09-19-[address] Skyler Rodriges Work Phone: [facility] Start: 06-26-2021 End: 07-11-[address] Skyler Rodriges Work Phone: [facility] Start: 06-11-2021 End: 06-11-[address] Skyler Rodriges Work Phone: [facility] Start: 05-24-2021 End: 05-24-[address] Skyler Rodriges Work Phone: [facility] Start: 05-13-2021 End: 05-13-[address] Skyler Rodriges Work Phone: [facility] Start: 05-08-2021 End: 05-08-[address] Skyler Rodriges Work Phone: [facility] Procedures Date Procedure Procedure Detail Performing Clinician Start: 07-05-2024 UA DIP,URINE HCG (POC) [facility] Provider Start: 07-05-2024 Urnls dip stick/tabl et rgnt auto w/o microscopy Patricia Germain FIBERGLASS QUALITY TECHNICIAN.FABRIC 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 Work Phone: Start: 06-17-2024 Vitamin D, 25-hydrox y measurement Dr. Skyler Rodriges MD Work Phone: Comment on above: Vitamin D StatusDefi ciency: <20 ng/mL (50nmol/L)Insufficiency: 20-30 ng/mL (50-75 nmol/L)Sufficiency: 30-100 ng/mL (75-250 nmol/L)Toxicity: >100 ng/mL (>250 nmol/L) Start: 01-28-2024 Radiologic exam ches t 2 views Harriett Castillo FIBERGLASS QUALITY TECHNICIAN.FABRIC 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 Work Phone: Start: 01-25-2024 Radex forearm 2 views Lisa Castillo FIBERGLASS QUALITY TECHNICIAN.FABRIC 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 Work Phone: Start: 11-27-2023 UA DIP,URINE HCG (POC) Harriett Castillo FIBERGLASS QUALITY TECHNICIAN.FABRIC 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 Work Phone: Start: 11-27-2023 Urnls dip stick/tabl et rgnt auto w/o microscopy Harriett Castillo FIBERGLASS QUALITY TECHNICIAN.FABRIC 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 Work Phone: Start: 04-01-2022 Computed tomography of abdomen and pelvis with contrast Dr. Skyler Rodriges Work Phone: Start: 10-01-2021 CT of head without contrast Dr. Skyelr Rodriges Work Phone: Start: 05-13-[address] Yoselin Rodriges Work Phone: Start: 05-13-[address] Skyler Rodriges Work Phone: Start: 06-28-2018 Adult depression screening assessment Issac King FIBERGLASS QUALITY TECHNICIAN.FABRIC 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 Work Phone: Cholecystectomy MAHENDRA SCOTTY FIBERGLASS QUALITY TECHNICIAN-FABRIC 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 Cytopathology proced ure, preparation of smear, genital source Dr. Skyler Rodriges Work Phone: History of cholecystectomy Hx of cholecystectomy( Confirmed ) MAHENDRA FAJARDO FIBERGLASS QUALITY TECHNICIAN-FABRIC 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 History of cholecystectomy Hx of cholecystectomy Dr. Skyler Rodriges Work Phone: Investigation of transfusion reaction Dr. Skyler Rodriges Work Phone: Plan of Treatment Date Care Activity Detail Author Start: 06-15-2025 BP Controlled (<130/80) BP Con trolled (<130/80) [facility] Start: 01-24-2025 BP Controlled (<130/80) BP Con trolled (<130/80) [facility] Start: 11-26-2024 BP Controlled (<130/80) BP Con trolled (<130/80) [facility] Start: 04-29-2024 Patient referral [facility] Work Phone: Start: 04-09-2024 End: 07-09-2024 Bacteria identified in Wound by Culture ABSCESS AND WOUND CULTURE WITH GRAM STAIN Microbiology Routine Skin infection Expected: 04/09/2024, Expires: 07/09/2024 [facility] Work Phone: Comment on above: Expected: 04/09/2024 , Expires: 07/09/2024 Start: 12-13-2023 Covid-19 Vaccine ( season) Covid-19 Vaccine ( season) [facility] Start: 12-13-2023 Influenza vaccination [facility] Start: 04-13-2023 Behavioral Health Screening Behavioral Health Screening [facility] Start: 12-12-2022 Covid-19 Vaccine ( season) Covid-19 Vaccine ( season) [facility] Start: 12-12-2022 Influenza vaccination Influenza Vacc ine (#1) [facility] Start: 10-01-2022 BP CONTROLLED (<130/80) BP CON TROLLED (<130/80) [facility] Start: 08-15-2022 T4 free measurement [facility] Start: 08-15-2022 Triiodothyronine, fr ee measurement [facility] Start: 04-13-2022 Depression Assessment Depression Ass essment [facility] Start: 03-28-2022 [facility] Work Phone: Start: 12-26-2021 Liquid based cervica l cytology screening [facility] Work Phone: Start: 12-18-2021 Patient referral [facility] Work Phone: Start: 12-12-2021 Influenza vaccination INFLUENZ A (Season Ended) [facility] Start: 07-12-2021 PAP TESTING PAP TESTING [facility] Start: 07-12-2021 Screening for malign ant neoplasm of cervix [facility] Start: 05-24-2021 Patient referral [facility] Work Phone: Start: 05-07-2021 ANNUAL PCP TEAM CORING 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 UMAIR DISEASE VISIT ANNUAL PCP TEAM CHRONIC DISEASE VISIT [facility] Start: 06-29-2019 Adult depression screening assessment DEPRESSION SCREENING [facility] Start: 11-14-2018 Urine microalbumin profile [facility] Start: 08-12-2017 HPV VACCINE (2 - 3-d ose series) HPV VACCINE (2 - 3-dose series) [facility] Start: 02-07-2015 Pneumococcal vaccination Pneum ococcal Vaccine (1 of 2 - PCV) [facility] Start: 02-07-2014 Anxiety Screening Anxiety Screening [facility] Start: 02-07-2014 BP Controlled (<130/80) BP Con trolled (<130/80) [facility] Start: 02-07-2014 Depression Screening Depression Scre ening [facility] Start: 02-07-2010 PEDS TO ADULT TRANSI TION ANNUAL ASSESSMENT PEDS TO ADULT TRANSITION ANNUAL ASSESSMENT [facility] Start: 2008 PEDS TO ADULT TRANSI TION INITIAL DISCUSSION PEDS TO ADULT TRANSITION INITIAL DISCUSSION [facility] Start: 02-07-2002 PNEUMOCOCCAL (1 - PCV) PNEUMOCOCCAL (1 - PCV) [facility] Start: 02-07-2002 Pneumococcal vaccination [facility] Start: 02-07-2001 COVID-19 VACCINE (#1) COVID-19 VACCI NE (#1) [facility] Start: 1996 Covid-19 Vaccine (#1) Covid-19 Vacci ne (#1) [facility] Bacteria identified in Urine by Culture URINE CULTURE Microbiology Routine Urinary frequency Ordered: 11/27/2023 [facility] Work Phone: Comment on above: Ordered: 11/27/2023 Bacteria identified in Urine by Culture BACTERIAL CULTURE, URINE Microbiology Routine Urinary frequency 07/05/2024 3:52 PM EDT [facility] BACTERIAL VAGINOSIS NAAT BACTERI AL VAGINOSIS NAAT Lab Routine Vaginal discharge Ordered: 11/27/2023 [facility] Comment on above: Ordered: 11/27/2023 BACTERIAL VAGINOSIS NAAT BACTERI AL VAGINOSIS NAAT Lab Routine Vaginal discharge 07/05/2024 3:52 PM EDT [facility] DONIS/TRICHOMONAS NAAT DONIS /TRICHOMONAS NAAT Lab Routine Vaginal discharge Ordered: 11/27/2023 [facility] Comment on above: Ordered: 11/27/2023 DONIS/TRICHOMONAS NAAT DONIS /TRICHOMONAS NAAT Lab Routine Vaginal discharge 07/05/2024 3:52 PM EDT [facility] CBC W Auto Different ial panel - Blood [facility] Work Phone: Chlamydia trachomatis+Neisseria gonorrhoeae DNA [Presence] in Unspecified specimen by LAWSON with probe detection GONORRHEA/CHLAMYDIA NAAT Lab Routine Vaginal discharge Ordered: 11/27/2023 [facility] Comment on above: Ordered: 11/27/2023 Chlamydia trachomatis+Neisseria gonorrhoeae DNA [Presence] in Unspecified specimen by LAWSON with probe detection GONORRHEA/CHLAMYDIA NAAT Lab Routine Vaginal discharge 07/05/2024 3:52 PM EDT [facility] COVID & INFLUENZA A/ B & RSV PCR, ROUTINE COVID & INFLUENZA A/B & RSV PCR, ROUTINE Microbiology Routine URI, acute 01/28/2024 10:15 AM EDT [facility] Work Phone: CT Abdomen and Pelvi s W contrast IV [facility] Work Phone: Elastase, pancreatic (el-1), fecal; quantitative [facility] Hemoglobin A1c/Hemoglobin.total in Blood [facility] Work Phone: Hemoglobin A1c/Hemoglobin.total in Blood [facility] Lipid 1996 panel - S azra or Plasma [facility] Work Phone: Path report.final Dx Spec [facility] Work Phone: Patient Education [facility] Work Phone: Patient referral [facility] Work Phone: Polysomnography [facility] Radionuclide gastric emptying study [facility] Work Phone: Radionuclide gastric emptying study [facility] SARS-CoV-2 (COVID-19 ) RNA [Presence] in Respiratory specimen by LAWSON with probe detection COVID NAAT, UPPER RESPIRATORY, ROUTINE Microbiology Routine Acute cough Ordered: 03/17/2023 [facility] Work Phone: Comment on above: Ordered: 03/17/2023 Urine test visual color cmprsn meths HCG QUAL UR B/O Lab Routine Urinary frequency Ordered: 07/05/2024 [facility] Work Phone: Comment on above: Ordered: 07/05/2024 Immunizations Immunization Date Immunization Notes Care Provider Ward pal 11-14-2008 Meningococcal, MCV4, unspecified conjugate formulation(groups A, C, Y and W-135) Issac Parmar APRN.[facility] Work Phone: [facility] Work Phone: 11-14-2008 tetanus toxoid, redu kristi diphtheria toxoid, and acellular pertussis vaccine, adsorbed Issac Parmar APRN.FABRIC 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 Work Phone: [facility] Work Phone: 11-05-2001 diphtheria, tetanus toxoids and acellular pertussis vaccine Issac Parmar APRN.FABRIC 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 Work Phone: [facility] Work Phone: 11-05-2001 measles, mumps and rubella virus vaccine Issac Parmar APRN.[facility] Work Phone: [facility] Work Phone: 11-05-2001 poliovirus vaccine, inactivated Issac Parmar FIBERGLASS QUALITY TECHNICIAN.FABRIC 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 Work Phone: [facility] Work Phone: 01-28-2000 pneumococcal conjuga te vaccine, 7 valent Issac Parmar FIBERGLASS QUALITY TECHNICIAN.FABRIC 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 Work Phone: [facility] Work Phone: 05-22-1997 diphtheria, tetanus toxoids and acellular pertussis vaccine Issac King BECKYN.FABRIC 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 Work Phone: [facility] Work Phone: 05-22-1997 haemophilus influenz ae type b vaccine, HbOC conjugate Issac King BECKYN.[facility] Work Phone: [facility] Work Phone: 05-22-1997 varicella virus vaccine Carlo Parmar FIBERGLASS QUALITY TECHNICIAN.[facility] Work Phone: [facility] Work Phone: 02-13-1997 measles, mumps and rubella virus vaccine Issac Parmar FIBERGLASS QUALITY TECHNICIAN.FABRIC 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 Work Phone: [facility] Work Phone: 02-13-1997 poliovirus vaccine, inactivated Issac Parmar FIBERGLASS QUALITY TECHNICIAN.FABRIC 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 Work Phone: [facility] Work Phone: 1996 diphtheria, tetanus toxoids and acellular pertussis vaccine Issac King BECKYN.FABRIC 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 Work Phone: [facility] Work Phone: 1996 haemophilus influenz ae type b vaccine, HbOC conjugate Issac Ghulam FIBERGLASS QUALITY TECHNICIAN.FABRIC 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 Work Phone: [facility] Work Phone: 1996 hepatitis B vaccine, pediatric or pediatric/adolescent dosage Issac King BECKYN.FABRIC 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 Work Phone: [facility] Work Phone: 1996 diphtheria, tetanus toxoids and acellular pertussis vaccine Issac King BECKYN.FABRIC 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 Work Phone: [facility] Work Phone: 1996 haemophilus influenz ae type b vaccine, HbOC conjugate Issac King FIBERGLASS QUALITY TECHNICIAN.FABRIC 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 Work Phone: [facility] Work Phone: 1996 poliovirus vaccine, inactivated Issac Ghulam FIBERGLASS QUALITY TECHNICIAN.FABRIC 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 Work Phone: [facility] Work Phone: 1996 diphtheria, tetanus toxoids and acellular pertussis vaccine Issac King FIBERGLASS QUALITY TECHNICIAN.FABRIC 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 Work Phone: [facility] Work Phone: 1996 haemophilus influenz ae type b vaccine, HbOC conjugate Issac Ghulam FIBERGLASS QUALITY TECHNICIAN.FABRIC 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 Work Phone: [facility] Work Phone: 1996 hepatitis B vaccine, pediatric or pediatric/adolescent dosage Issac Ghulam FIBERGLASS QUALITY TECHNICIAN.FABRIC 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 Work Phone: [facility] Work Phone: 1996 poliovirus vaccine, inactivated Issac Ghulam FIBERGLASS QUALITY TECHNICIAN.FABRIC 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 Work Phone: [facility] Work Phone: 1996 hepatitis B vaccine, pediatric or pediatric/adolescent dosage Issac Ghulam FIBERGLASS QUALITY TECHNICIAN.FABRIC 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 Work Phone: [facility] Work Phone: Payers Date Payer Category Payer Self-pay [id number] 2022 Medicaid [id number] 2022 Unknown [id number] 2021 Unknown [id number] 2015 Medicaid [employer] [id number] 2015-Present [phone] [address] [place] [address] Medicaid [id number] 1996 Unknown [id number]. 627 Private Health Insurance [place] [id number] Unknown [id number] [id number]. 462 Unknown [id number] 2.16.840.1.877672.3.579.2. 462 Unknown [id number] 2.16.840.1.218195.3.579.2. 462 Unknown [id number] 2.16.840.1.128638.3.579.2. 462 Unknown [id number] 2.16.840.1.673292.3.579.2. 462 Unknown [id number] 2.16.840.1.955533.3.579.2. 462 Unknown [id number] 2.16.840.1.948444.3.579.2. 462 Unknown [id number] 2.16.840.1.371543.3.579.2. 462 Unknown [id number] 2.16.840.1.272831.3.579.2. 462 Unknown [id number] 2.16.840.1.364589.3.579.2. 462 Unknown [id number] 2.16.840.1.683883.3.579.2. 462 Unknown [id number] 2.16.840.1.142985.3.579.2. 462 Unknown [id number] 2.16.840.1.537969.3.579.2. 462 Unknown [id number] 2.16.840.1.437241.3.579.2. 462 Unknown [id number] 2.16.840.1.553012.3.579.2. 462 Unknown [id number] 2.16.840.1.864320.3.579.2. 462 Unknown [id number] 2.16.840.1.145318.3.579.2. 462 Unknown [id number] 2.840.1.553384.3.579.2. 462 Unknown [id number] [id number]. 462 Social History Date Type Detail Facility Start: 06-11-2021 End: 04-27-2023 Tobacco smoking status IAIS Unknown if ever smoked [facility] Start: 03-01-2020 None [facility] Start: 04-15-2020 Marijuana;- [facility] Start: 03-01-2020 Spouse/ Signif icant Other [facility] Start: 1996 Sex Assigned At Female W [facility] Start: 07-15-2017 End: 01-25-2024 Tobacco smoking status IAIS Smokes tobacco daily [facility] End: 05-14-2014 History of tobacco use Cigarette Smoker [facility] Start: 07-15-2017 End: 03-18-2020 Cigarettes smoked current (pack per day) - Reported 0.2 [facility] Start: 07-15-2017 End: 01-25-2024 Tobacco use and exposure Smokeless tobacco non-user [facility] Start: 10-01-2021 End: 04-09-2024 Alcohol intake Current non-drinker of alcohol (finding) [facility] Start: 1995 Sex Assigned At Not on file [facility] Start: 09-21-2021 End: 10-01-2021 Exposure to SARS-CoV-2 (event) Not sure [facility] Work Phone: Start: 01-10-2020 Tobacco smoking status Heavy tobacco smoker (finding) [facility] Sex Assigned At Sex [facility] Start: 03-18-2020 End: 03-17-2023 Tobacco use panel [facility] Adult Depression Screening Assessment 2 [facility] Start: 06-08-2024 Tobacco smoking status NHIS Ex-smoker (finding) [facility] Start: 06-30-2024 Sex Female (finding) [facility] NEGATED: Highlighted row [facility] Medical Equipment Procedure Code Equipment Code Equipment Origin al Text Equipment Identifier Dates Blood Sugar Diagnostic (Onetouch Ultra Test) strip Start: 08-19-2021 Lancets (Onetouc h Ultrasoft Lancets) misc Start: 08-19-2021 Blood Sugar Diagnostic (Freestyle Lite Strips) strip Start: 08-19-2021 End: 08-19-2021 Lancets (Freesty le Lancets) 28 gauge misc Start: 08-19-2021 End: 08-19-2021 Blood Sugar Diagnostic (Onetouch Ultra Test) strip Start: 08-19-2021 Lancets (Onetouc h Ultrasoft Lancets) misc Start: 08-19-2021 Blood Sugar Diagnostic (Freestyle Lite Strips) strip Start: 08-19-2021 End: 08-19-2021 Lancets (Freesty le Lancets) 28 gauge misc Start: 08-19-2021 End: 08-19-2021 Blood Sugar Diagnostic (Onetouch Ultra Test) strip Start: 08-19-2021 Lancets (Onetouc h Ultrasoft Lancets) misc Start: 08-19-2021 Blood Sugar Diagnostic (Freestyle Lite Strips) strip Start: 08-19-2021 End: 08-19-2021 Lancets (Freesty le Lancets) 28 gauge misc Start: 08-19-2021 End: 08-19-2021 Blood Sugar Diagnostic (Onetouch Ultra Test) strip Start: 08-19-2021 Lancets (Onetouc h Ultrasoft Lancets) misc Start: 08-19-2021 Blood Sugar Diagnostic (Freestyle Lite Strips) strip Start: 08-19-2021 End: 08-19-2021 Lancets (Freesty le Lancets) 28 gauge misc Start: 08-19-2021 End: 08-19-2021 Blood Sugar Diagnostic (Onetouch Ultra Test) strip Start: 08-19-2021 Lancets (Onetouc h Ultrasoft Lancets) misc Start: 08-19-2021 Blood Sugar Diagnostic (Freestyle Lite Strips) strip Start: 08-19-2021 End: 08-19-2021 Lancets (Freesty le Lancets) 28 gauge misc Start: 08-19-2021 End: 08-19-2021 Blood Sugar Diagnostic (Freestyle Lite Strips) strip Start: 08-19-2021 End: 08-19-2021 Blood Sugar Diagnostic (Onetouch Ultra Test) strip Start: 08-19-2021 End: 08-27-2022 Lancets (Freesty le Lancets) 28 gauge misc Start: 08-19-2021 End: 08-19-2021 Lancets (Onetouc h Ultrasoft Lancets) misc Start: 08-19-2021 End: 08-27-2022 Blood Sugar Diagnostic (Freestyle Lite Strips) strip Start: 08-19-2021 End: 08-19-2021 Blood Sugar Diagnostic (Onetouch Ultra Test) strip Start: 08-19-2021 End: 08-27-2022 Lancets (Freesty le Lancets) 28 gauge misc Start: 08-19-2021 End: 08-19-2021 Lancets (Onetouc h Ultrasoft Lancets) misc Start: 08-19-2021 End: 08-27-2022 Blood Sugar Diagnostic (Freestyle Lite Strips) strip Start: 08-19-2021 End: 08-19-2021 Blood Sugar Diagnostic (Onetouch Ultra Test) strip Start: 08-19-2021 End: 08-27-2022 Lancets (Freesty le Lancets) 28 gauge misc Start: 08-19-2021 End: 08-19-2021 Lancets (Onetouc h Ultrasoft Lancets) misc Start: 08-19-2021 End: 08-27-2022 Blood Sugar Diagnostic (Freestyle Lite Strips) strip Start: 08-19-2021 End: 08-19-2021 Blood Sugar Diagnostic (Onetouch Ultra Test) strip Start: 08-19-2021 End: 08-27-2022 Lancets (Freesty le Lancets) 28 gauge misc Start: 08-19-2021 End: 08-19-2021 Lancets (Onetouc h Ultrasoft Lancets) [facility] Start: 08-19-2021 End: 08-27-2022 Functional Status Date Assessment Result Facility 03-31-2022 Functional Status Room check performed [facility] 03-31-[address] [facility] 03-31-2022 Functional Status Demonstrates C orrect Call Light Use Yes [facility] 03-31-[address] [facility] 03-30-[address] [facility] 03-30-2022 Functional Status Dinner Percent 0 [facility] 03-30-2022 Functional Status Lunch Percent 50 [facility] 03-30-[address] [facility] 03-30-2022 Functional Status SCD On/Re-appl ied bilateral knee high [facility] 03-29-[address] [facility] 03-29-2022 Functional Status Single level home [facility] 03-28-2022 Functional Status Sensory Deficits None A [facility] 03-28-2022 Functional Status Ambulation in [facility] 11-07-2014 Are you deaf, or do you have serious difficulty hearing No 11/07/2014 11:19 AM SELMAT Qian Stokes Cma No [facility] 11-07-2014 Are you blind, or do you have serious difficulty seeing, even when wearing glasses No 11/07/2014 11:19 AM EDT Qian Stokes Cma No [facility] 11-07-2014 Do you have serious difficulty walking or climbing stairs No 11/07/2014 11:19 AM Qian Billingsley Cma No [facility] 11-07-2014 Do you have difficul ty dressing or bathing No 11/07/2014 11:19 AM Qian Billingsley Cma No [facility] 11-07-2014 Because of a physica l, mental, or emotional condition, do you have difficulty doing errands alone such as visiting a physician's office or shopping No 11/07/2014 11:19 AM EDT Qian Stokes Cma [facility] Mental Status Date Assessment Result Facility 03-31-2022 Mental Status Orientation Oriented x 4 [facility] 03-31-2022 Mental Status [facility] 03-31-2022 Mental Status [facility] 03-30-2022 Mental Status [facility] 10-01-2021 Cognitive function Level Of Cons ciousness Awake;Alert;Appropriate;Fol lows Commands [facility] Work Phone: 11-07-2014 Because of a physica l, mental, or emotional condition, do you have serious difficulty concentrating, remembering, or making decisions No 11/07/2014 11:19 AM EDT Qian Stokes Cma [facility] Clinical Notes 01-07-2011 to 07-07-2024 Telephone Encounter - Mary Jane Loredo RN - 07/07/2024 8:14 AM EDTTelephone Encounter - Mary Jane Loredo RN - 07/07/2024 8:14 AM EDTPatient Instructions Note Date & Type Note Facility 07-07-2024 Telephone encounter Note Called pt and notified of all negative results and given provider's recommendations. [facility] 07-07-2024 Miscellaneous Notes Called pt and notified of all negative results and given provider's recommendations. Please let patient know her urine culture revealed no UTI. Her chlamydia, gonorrhea, trichomonas, yeast and BV swabs were all negative. Follow-up with PCP for persistent symptoms documented in this encounter [facility] 07-06-2024 Telephone encounter Note Please let patient know her urine culture revealed no UTI. Her chlamydia, gonorrhea, trichomonas, yeast and BV swabs were all negative. Follow-up with PCP for persistent symptoms [facility] Work Phone: 07-05-2024 Instructions Patricia Germain APRN.FABRIC 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 - 07/05/2024 4:17 PM EDT ASSESSMENT/PLAN: 1. Urinary frequency - ICD9: 788.41, ICD10: R35.0 (primary diagnosis) acute - UA positive for hematuria and proteinuria - Send urine for culture - UA DIP, URINE (POC) - BACTERIAL CULTURE, URINE - HCG QUAL UR B/O 2. Vaginal discharge - ICD9: 623.5, ICD10: N89.8 - DONIS/TRICHOMONAS NAAT - BACTERIAL VAGINOSIS NAAT - GONORRHEA/CHLAMYDIA NAAT - no prescriptions provided today. Please treat as needed based on test results. Office Visit on 07/05/2024 Component Date Value Ref Range Status GLUCOSE UA (POCT) 07/05/2024 Negative Negative mg/dL Final BILIRUBIN UA (POCT) 07/05/2024 Negative Negative Final KETONE UA (POCT) 07/05/2024 Negative Negative mg/dL Final SPECIFIC GRAVITY UA (POCT) 07/05/2024 >=1.030 1.005 - 1.030 Final HEMOGLOBIN/BLOOD UA (POCT) 07/05/2024 Small (A) Negative Final PH UA (POCT) 07/05/2024 6.0 4.5 - 8.0 Final PROTEIN UA (POCT) 07/05/2024 30 (A) Negative mg/dL Final UROBILINOGEN UA (POCT) 07/05/2024 0.2 Normal E.U./dL Final NITRITE UA (POCT) 07/05/2024 Negative Negative Final LEUKOCYTES UA (POCT) 07/05/2024 Negative Negative Final COLOR UA (POCT) 07/05/2024 Yellow Final CLARITY UA (POCT) 07/05/2024 Clear Final Urine hCG (POCT) 07/05/2024 Negative Negative Final Location: [facility], [address], [place], [address] [employer] (POCT) 07/05/2024 Internal QC OK Final - Follow-up with your PCP in 3-5 days if symptoms have not improved or sooner if symptoms worsen - Discussed red flags and need for immediate medical evaluation if any occur. - Discussed supportive care treatment with fluids, rest and analgesia. - Discussed expected course of illness Patricia Germain APRN.FABRIC 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 documented in this encounter [facility] 07-05-2024 Note HNO ID: [id number] Author: PATRICIA GERMAIN APRN.FABRIC 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 Service: ? Author Type: Nurse Practitioner Type: Progress Notes Filed: 07/05/2024 16:17 Note Text: [facility] Subjective Genet Cobb is a 29 year old female. Patient presents with: Vaginal Problem: discharge x 1 day, urinary frequency and burning x 5 days Vaginal Problem Pertinent negatives include no chills or fever. Genet Cobb is a 29 year old female who presents with 5 days of frequency and burning with urination. This morning she noticed a white milky vaginal discharge. She is currently sexually active. LMP was one month ago. She is not on control. She denies pain with intercourse, vaginal spotting, or hematuria. Denies fever or back pain. Review of Systems Constitutional: Negative for chills and fever. Respiratory: Negative. Cardiovascular: Negative. Gastrointestinal: Negative. Genitourinary: Positive for dysuria, frequency and vaginal discharge. Negative for hematuria. Musculoskeletal: Negative for back pain. Objective BP 122/80 Pulse 100 Temp 37.2 ?C (98.9 ?F) Resp 18 Wt 98.2 kg (216 lb 7.9 oz) LMP 03/11/2024 (Within Days) SpO2 97% BMI 37.16 kg/m? PAST MEDICAL HISTORY Diagnosis Date - Anxiety - Elevated blood pressure 01/07/2011 - Excessive anger - Headache(784.0) 03/13/2011 - History of drug use meth and marajuana - IBS (irritable bowel syndrome) - Left ventricular hypertrophy - Overweight(278.02) 01/07/2011 PAST SURGICAL HISTORY Procedure Laterality Date - COLONOSCOPY FLX DX W/COLLJ SPEC WHEN PFRMD 07/04/2015 Colonoscopy - LAPS SURG CHOLECYSTECTOMY W/CHOLANGIOGRAPHY 10-07-13 ALLERGIES Amoxicillin and Inderal [Propranolol] MEDICATIONS - albuterol HFA (PROVENTIL HFA, VENTOLIN HFA) 90 mcg/actuation inhaler Inhale 2 Puffs as instructed every 6 hours as needed for wheezing/shortness of breath. - atomoxetine (STRATTERA) 40 mg capsule take 1 capsule by mouth once daily in the morning - lamoTRIgine (LAMICTAL) 200 mg tablet Take by mouth. - metFORMIN (GLUCOPHAGE) 500 mg tablet Take by mouth. (Patient not taking: Reported on 07/05/2024) - lisinopril (ZESTRIL, PRINIVIL) 10 mg tablet Take 1 tablet by mouth once daily. FAMILY HISTORY Problem Relation Age of Onset - Hypertension Mother - Diabetes Mother - None Father - Diabetes Maternal Grandmother - Thyroid Maternal Grandmother - Diabetes Maternal Grandfather - Asthma Paternal Grandmother - Diabetes Maternal Aunt - Hypertension Maternal Aunt Social History Tobacco Use - Smoking status: Every Day Current packs/day: 0.00 Types: Cigarettes Last attempt to quit: 05/14/2014 Years since quittin.1 - Smokeless tobacco: Never Substance Use Topics - Alcohol use: No - Drug use: No Physical Exam Vitals and nursing note reviewed. Constitutional: General: She is not in acute distress. Appearance: Normal appearance. She is not ill-appearing. Cardiovascular: Rate and Rhythm: Normal rate and regular rhythm. Heart sounds: Normal heart sounds. Pulmonary: Effort: Pulmonary effort is normal. No respiratory distress. Breath sounds: Normal breath sounds. No wheezing or rales. Abdominal: General: There is no distension. Palpations: Abdomen is soft. There is no mass. Tenderness: There is no abdominal tenderness. There is no right CVA tenderness, left CVA tenderness or guarding. Skin: General: Skin is warm and dry. Neurological: Mental Status: She is alert. {ASSESSMENT/PLAN: 1. Urinary frequency - ICD9: 788.41, ICD10: R35.0 (primary diagnosis) acute - UA positive for hematuria and proteinuria - Send urine for culture - UA DIP, URINE (POC) - BACTERIAL CULTURE, URINE - HCG QUAL UR B/O 2. Vaginal discharge - ICD9: 623.5, ICD10: N89.8 - DONIS/TRICHOMONAS NAAT - BACTERIAL VAGINOSIS NAAT - GONORRHEA/CHLAMYDIA NAAT - no prescriptions provided today. Please treat as needed based on test results. Office Visit on 07/05/2024 Component Date Value Ref Range Status - GLUCOSE UA (POCT) 07/05/2024 Negative Negative mg/dL Final - BILIRUBIN UA (POCT) 07/05/2024 Negative Negative Final - KETONE UA (POCT) 07/05/2024 Negative Negative mg/dL Final - SPECIFIC GRAVITY UA (POCT) 07/05/2024 >=1.030 1.005 - 1.030 Final - HEMOGLOBIN/BLOOD UA (POCT) 07/05/2024 Small (A) Negative Final - PH UA (POCT) 07/05/2024 6.0 4.5 - 8.0 Final - PROTEIN UA (POCT) 07/05/2024 30 (A) Negative mg/dL Final - UROBILINOGEN UA (POCT) 07/05/2024 0.2 Normal E.U./dL Final - NITRITE UA (POCT) 07/05/2024 Negative Negative Final - LEUKOCYTES UA (POCT) 07/05/2024 Negative Negative Final - COLOR UA (POCT) 07/05/2024 Yellow Final - CLARITY UA (POCT) 07/05/2024 Clear Final - Urine hCG (POCT) 07/05/2024 Negative Negative Final Location:[facility], [address] [place] [address], [place], [address] - [employer] (POCT) 07/05/2024 Internal QC OK Final - Follow-up with your PCP in 3-5 days if symptoms hav (more content not included)... [facility] 07-05-2024 History of Presen t illness Narrative [facility] Subjective Genet Cobb is a 29 year old female. Patient presents with: Vaginal Problem: discharge x 1 day, urinary frequency and burning x 5 days Vaginal Problem Pertinent negatives include no chills or fever. Genet Cobb is a 29 year old female who presents with 5 days of frequency and burning with urination. This morning she noticed a white milky vaginal discharge. She is currently sexually active. LMP was one month ago. She is not on control. She denies pain with intercourse, vaginal spotting, or hematuria. Denies fever or back pain. Review of Systems Constitutional: Negative for chills and fever. Respiratory: Negative. Cardiovascular: Negative. Gastrointestinal: Negative. Genitourinary: Positive for dysuria, frequency and vaginal discharge. Negative for hematuria. Musculoskeletal: Negative for back pain. Objective BP 122/80 Pulse 100 Temp 37.2 C (98.9 F) Resp 18 Wt 98.2 kg (216 lb 7.9 oz) LMP 03/11/2024 (Within Days) SpO2 97% BMI 37.16 kg/m PAST MEDICAL HISTORY Diagnosis Date Anxiety Elevated blood pressure 01/07/2011 Excessive anger Headache(784.0) 03/13/2011 History of drug use meth and marajuana IBS (irritable bowel syndrome) Left ventricular hypertrophy Overweight(278.02) 01/07/2011 PAST SURGICAL HISTORY Procedure Laterality Date COLONOSCOPY FLX DX W/COLLJ SPEC WHEN PFRMD 07/04/2015 Colonoscopy LAPS SURG CHOLECYSTECTOMY W/CHOLANGIOGRAPHY 10-07-13 ALLERGIES Amoxicillin and Inderal [Propranolol] MEDICATIONS albuterol HFA (PROVENTIL HFA, VENTOLIN HFA) 90 mcg/actuation inhaler Inhale 2 Puffs as instructed every 6 hours as needed for wheezing/shortness of breath. atomoxetine (STRATTERA) 40 mg capsule take 1 capsule by mouth once daily in the morning lamoTRIgine (LAMICTAL) 200 mg tablet Take by mouth. metFORMIN (GLUCOPHAGE) 500 mg tablet Take by mouth. (Patient not taking: Reported on 07/05/2024) lisinopril (ZESTRIL, PRINIVIL) 10 mg tablet Take 1 tablet by mouth once daily. FAMILY HISTORY Problem Relation Age of Onset Hypertension Mother Diabetes Mother None Father Diabetes Maternal Grandmother Thyroid Maternal Grandmother Diabetes Maternal Grandfather Asthma Paternal Grandmother Diabetes Maternal Aunt Hypertension Maternal Aunt Social History Tobacco Use Smoking status: Every Day Current packs/day: 0.00 Types: Cigarettes Last attempt to quit: 05/14/2014 Years since quittin.1 Smokeless tobacco: Never Substance Use Topics Alcohol use: No Drug use: No Physical Exam Vitals and nursing note reviewed. Constitutional: General: She is not in acute distress. Appearance: Normal appearance. She is not ill-appearing. Cardiovascular: Rate and Rhythm: Normal rate and regular rhythm. Heart sounds: Normal heart sounds. Pulmonary: Effort: Pulmonary effort is normal. No respiratory distress. Breath sounds: Normal breath sounds. No wheezing or rales. Abdominal: General: There is no distension. Palpations: Abdomen is soft. There is no mass. Tenderness: There is no abdominal tenderness. There is no right CVA tenderness, left CVA tenderness or guarding. Skin: General: Skin is warm and dry. Neurological: Mental Status: She is alert. {ASSESSMENT/PLAN: 1. Urinary frequency - ICD9: 788.41, ICD10: R35.0 (primary diagnosis) acute - UA positive for hematuria and proteinuria - Send urine for culture - UA DIP, URINE (POC) - BACTERIAL CULTURE, URINE - HCG QUAL UR B/O 2. Vaginal discharge - ICD9: 623.5, ICD10: N89.8 - DONIS/TRICHOMONAS NAAT - BACTERIAL VAGINOSIS NAAT - GONORRHEA/CHLAMYDIA NAAT - no prescriptions provided today. Please treat as needed based on test results. Office Visit on 07/05/2024 Component Date Value Ref Range Status GLUCOSE UA (POCT) 07/05/2024 Negative Negative mg/dL Final BILIRUBIN UA (POCT) 07/05/2024 Negative Negative Final KETONE UA (POCT) 07/05/2024 Negative Negative mg/dL Final SPECIFIC GRAVITY UA (POCT) 07/05/2024 >=1.030 1.005 - 1.030 Final HEMOGLOBIN/BLOOD UA (POCT) 07/05/2024 Small (A) Negative Final PH UA (POCT) 07/05/2024 6.0 4.5 - 8.0 Final PROTEIN UA (POCT) 07/05/2024 30 (A) Negative mg/dL Final UROBILINOGEN UA (POCT) 07/05/2024 0.2 Normal E.U./dL Final NITRITE UA (POCT) 07/05/2024 Negative Negative Final LEUKOCYTES UA (POCT) 07/05/2024 Negative Negative Final COLOR UA (POCT) 07/05/2024 Yellow Final CLARITY UA (POCT) 07/05/2024 Clear Final Urine hCG (POCT) 07/05/2024 Negative Negative Final Location:[facility], [address] [place] [address], [place], [address] [employer] (POCT) 07/05/2024 Internal QC OK Final - Follow-up with your PCP in 3-5 days if symptoms have not improved or sooner if symptoms worsen - Discussed red flags and need for immediate medical evaluation if any occur. - Discussed supportive care treatment with fluids, rest and analgesia. - Discussed expected course of illness Patricia Germain APRN.CNP Disposition The patient was discharged. Procedures documented in this encounter [facility] 06-15-2024 Note HNO ID: [id number] Author: HARRIETT CASTILLO APRN.KAREN Service: ? Author Type: Nurse Practitioner Type: Progress Notes Filed: 06/15/2024 12:35 Note Text: This note was created using [employer]. Subjective Genet Cobb is a 29 year old female. 29 year old female with PMH DM, HTN, ADHD and biplar presents for dental Acute onset 2 days Although in further talks she states it has been bothering her for quite some time Left lower molar +gum swelling +pain with chewing +sensitivity to hot and cold Denies fever or chills Denies inability to open or close mouth Denies hot potato voice Denies that she has a current dentist, States that she has been fired The history is provided by the patient. No electromechanical equipment assembler was used. Dental Problem This is a recurrent problem. Episode onset: 2 days ago. The problem occurs constantly. The problem has been gradually worsening. Pertinent negatives include no abdominal pain, anorexia, arthralgias, change in bowel habit, chest pain, chills, congestion, coughing, diaphoresis, fatigue, fever, headaches, joint swelling, myalgias, nausea, neck pain, numbness, rash, sore throat, swollen glands, urinary symptoms, vertigo, visual change, vomiting or weakness. Exacerbated by: eating and drinking. Hot and cold. She has tried nothing for the symptoms. The treatment provided no relief. PAST MEDICAL HISTORY Diagnosis Date Anxiety Elevated blood pressure 01/07/2011 Excessive anger Headache(784.0) 03/13/2011 History of drug use meth and marajuana IBS (irritable bowel syndrome) Left ventricular hypertrophy Overweight(278.02) 01/07/2011 PAST SURGICAL HISTORY Procedure Laterality Date COLONOSCOPY FLX DX W/COLLJ SPEC WHEN PFRMD 07/04/2015 Colonoscopy LAPS SURG CHOLECYSTECTOMY W/CHOLANGIOGRAPHY 10-07-13 ALLERGIES Amoxicillin and Inderal [Propranolol] MEDICATIONS albuterol HFA (PROVENTIL HFA, VENTOLIN HFA) 90 mcg/actuation inhaler Inhale 2 Puffs as instructed every 6 hours as needed for wheezing/shortness of breath. atomoxetine (STRATTERA) 40 mg capsule take 1 capsule by mouth once daily in the morning lamoTRIgine (LAMICTAL) 200 mg tablet Take by mouth. metFORMIN (GLUCOPHAGE) 500 mg tablet Take by mouth. lisinopril (ZESTRIL, PRINIVIL) 10 mg tablet Take 1 tablet by mouth once daily. clindamycin (CLEOCIN) 150 mg capsule Take 3 capsules by mouth three times a day for 7 days. FAMILY HISTORY Problem Relation Age of Onset Hypertension Mother Diabetes Mother None Father Diabetes Maternal Grandmother Thyroid Maternal Grandmother Diabetes Maternal Grandfather Asthma Paternal Grandmother Diabetes Maternal Aunt Hypertension Maternal Aunt Social History Tobacco Use Smoking status: Every Day Current packs/day: 0.00 Types: Cigarettes Last attempt to quit: 05/14/2014 Years since quittin.0 Smokeless tobacco: Never Substance Use Topics Alcohol use: No Drug use: No Review of Systems Constitutional: Negative for chills, diaphoresis, fatigue and fever. HENT: Positive for dental problem. Negative for congestion and sore throat. Eyes: Negative for pain, discharge, redness and itching. Respiratory: Negative for apnea, cough, choking and chest tightness. Cardiovascular: Negative for chest pain. Gastrointestinal: Negative for abdominal pain, anorexia, change in bowel habit, nausea and vomiting. Musculoskeletal: Negative for arthralgias, joint swelling, myalgias and neck pain. Skin: Negative for rash. Allergic/Immunologic: Negative for environmental allergies, food allergies and immunocompromised state. Neurological: Negative for dizziness, vertigo, facial asymmetry, weakness, numbness and headaches. Hematological: Negative for adenopathy. Does not bruise/bleed easily. Psychiatric/Behavioral: Negative for agitation and behavioral problems. Objective BP 124/72 Pulse 110 Temp 36.9 ?C (98.4 ?F) Resp 18 Wt 98.9 kg (218 lb 0.6 oz) LMP 03/11/2024 (Within Days) SpO2 98% BMI 37.43 kg/m? Physical Exam Vitals and nursing note reviewed. Constitutional: General: She is not in acute distress. Appearance: Normal appearance. She is normal weight. She is not ill-appearing, toxic-appearing or diaphoretic. HENT: Head: Normocephalic and atraumatic. Right Ear: Ear canal and external ear normal. Left Ear: Ear canal and external ear normal. Nose: Nose normal. No congestion or rhinorrhea. Mouth/Throat: Mouth: Mucous membranes are moist. Dentition: Abnormal dentition. Pharynx: No oropharyngeal exudate or posterior oropharyngeal erythema. Comments: Widespread dental decay and missing dentition Eyes: General: Right eye: No discharge. Left eye: No discharge. Extraocular Movements: Extraocular movements intact. Conjunctiva/sclera: Conjunctivae normal. Pupils: Pupils are equal, round, and reactive to light. Cardiovascular: Rate and Rhythm: Normal rate and regular rhythm. Pulses: Normal (more content not included)... [facility] 06-15-2024 History of Presen t illness Narrative Images from the original note were not included. This note was created using [employer]. Subjective Genet Cobb is a 29 year old female. 29 year old female with PMH DM, HTN, ADHD and biplar presents for dental Acute onset 2 days Although in further talks she states it has been bothering her for quite some time Left lower molar +gum swelling +pain with chewing +sensitivity to hot and cold Denies fever or chills Denies inability to open or close mouth Denies hot potato voice Denies that she has a current dentist, States that she has been fired The history is provided by the patient. No electromechanical equipment assembler was used. Dental Problem This is a recurrent problem. Episode onset: 2 days ago. The problem occurs constantly. The problem has been gradually worsening. Pertinent negatives include no abdominal pain, anorexia, arthralgias, change in bowel habit, chest pain, chills, congestion, coughing, diaphoresis, fatigue, fever, headaches, joint swelling, myalgias, nausea, neck pain, numbness, rash, sore throat, swollen glands, urinary symptoms, vertigo, visual change, vomiting or weakness. Exacerbated by: eating and drinking. Hot and cold. She has tried nothing for the symptoms. The treatment provided no relief. PAST MEDICAL HISTORY Diagnosis Date Anxiety Elevated blood pressure 01/07/2011 Excessive anger Headache(784.0) 03/13/2011 History of drug use meth and marajuana IBS (irritable bowel syndrome) Left ventricular hypertrophy Overweight(278.02) 01/07/2011 PAST SURGICAL HISTORY Procedure Laterality Date COLONOSCOPY FLX DX W/COLLJ SPEC WHEN PFRMD 07/04/2015 Colonoscopy LAPS SURG CHOLECYSTECTOMY W/CHOLANGIOGRAPHY 10-07-13 ALLERGIES Amoxicillin and Inderal [Propranolol] MEDICATIONS albuterol HFA (PROVENTIL HFA, VENTOLIN HFA) 90 mcg/actuation inhaler Inhale 2 Puffs as instructed every 6 hours as needed for wheezing/shortness of breath. atomoxetine (STRATTERA) 40 mg capsule take 1 capsule by mouth once daily in the morning lamoTRIgine (LAMICTAL) 200 mg tablet Take by mouth. metFORMIN (GLUCOPHAGE) 500 mg tablet Take by mouth. lisinopril (ZESTRIL, PRINIVIL) 10 mg tablet Take 1 tablet by mouth once daily. clindamycin (CLEOCIN) 150 mg capsule Take 3 capsules by mouth three times a day for 7 days. FAMILY HISTORY Problem Relation Age of Onset Hypertension Mother Diabetes Mother None Father Diabetes Maternal Grandmother Thyroid Maternal Grandmother Diabetes Maternal Grandfather Asthma Paternal Grandmother Diabetes Maternal Aunt Hypertension Maternal Aunt Social History Tobacco Use Smoking status: Every Day Current packs/day: 0.00 Types: Cigarettes Last attempt to quit: 05/14/2014 Years since quittin.0 Smokeless tobacco: Never Substance Use Topics Alcohol use: No Drug use: No Review of Systems Constitutional: Negative for chills, diaphoresis, fatigue and fever. HENT: Positive for dental problem. Negative for congestion and sore throat. Eyes: Negative for pain, discharge, redness and itching. Respiratory: Negative for apnea, cough, choking and chest tightness. Cardiovascular: Negative for chest pain. Gastrointestinal: Negative for abdominal pain, anorexia, change in bowel habit, nausea and vomiting. Musculoskeletal: Negative for arthralgias, joint swelling, myalgias and neck pain. Skin: Negative for rash. Allergic/Immunologic: Negative for environmental allergies, food allergies and immunocompromised state. Neurological: Negative for dizziness, vertigo, facial asymmetry, weakness, numbness and headaches. Hematological: Negative for adenopathy. Does not bruise/bleed easily. Psychiatric/Behavioral: Negative for agitation and behavioral problems. Objective BP 124/72 Pulse 110 Temp 36.9 C (98.4 F) Resp 18 Wt 98.9 kg (218 lb 0.6 oz) LMP 03/11/2024 (Within Days) SpO2 98% BMI 37.43 kg/m Physical Exam Vitals and nursing note reviewed. Constitutional: General: She is not in acute distress. Appearance: Normal appearance. She is normal weight. She is not ill-appearing, toxic-appearing or diaphoretic. HENT: Head: Normocephalic and atraumatic. Right Ear: Ear canal and external ear normal. Left Ear: Ear canal and external ear normal. Nose: Nose normal. No congestion or rhinorrhea. Mouth/Throat: Mouth: Mucous membranes are moist. Dentition: Abnormal dentition. Pharynx: No oropharyngeal exudate or posterior oropharyngeal erythema. Comments: Widespread dental decay and missing dentition Eyes: General: Right eye: No discharge. Left eye: No discharge. Extraocular Movements: Extraocular movements intact. Conjunctiva/sclera: Conjunctivae normal. Pupils: Pupils are equal, round, and reactive to light. Cardiovascular: Rate and Rhythm: Normal rate and regular rhythm. Pulses: Normal pulses. Heart sounds: Normal heart sounds. No murmur heard. No friction rub. Pulmonary: Effort: Pulmonary effort is normal. No respiratory distress. Breath sounds: Normal breath sounds. No stridor. No wheezing, rhonchi or rales. Chest: Chest wall: No tenderness. Abdominal: General: Abdomen is flat. There is no distension. Palpations: Abdomen is soft. There is no mass. Tenderness: There is no abdominal tenderness. There is no right CVA tenderness, left CVA tenderness, guarding or rebound. Hernia: No hernia is present. Musculoskeletal: General: No swelling, tenderness, deformity or signs of injury. Normal range of motion. Cervical back: Normal range of motion and neck supple. No rigidity. Right lower leg: No edema. Left lower leg: No edema. Lymphadenopathy: Cervical: No cervical adenopathy. Skin: General: Skin is warm and dry. Coloration: Skin is not jaundiced or pale. Findings: No bruising, erythema, lesion or rash. Neurological: General: No focal deficit present. Mental Status: She is alert and oriented to person, place, and time. Cranial Nerves: No cranial nerve deficit. Sensory: No sensory deficit. Motor: No weakness. Coordination: Coordination normal. Gait: Gait normal. Psychiatric: Mood and Affect: Mood normal. Behavior: Behavior normal. Thought Content: Thought content normal. Judgment: Judgment normal. Assessment and Plan ASSESSMENT/PLAN: 1. Pain, dental - ICD9: 525.9, ICD10: K08.89 Widespread dental decay Tooth 17 TTP RX Clindamycin F/U with dentist ASHLEY List handed out Discussed red flags Harriett Castillo APRN.FABRIC 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 documented in this encounter [facility] 06-08-2024 Evaluation note Diagnosis Onset Date Resolution Forgetfulness chronic June 082024 9:53am Sleep disturbance, unspecified suspected June 08 9:53am GERD (gastroesophageal reflux disease) chronic June 10 10:03am Irritable bowel syndrome with alternating bowel habits chronic June 10 10:03am Atypical chest pain resolved June 17, 2024 7:59am Poor dentition acute August 19 9:39am Hypertension chronic August 19 9:39am Atypical chest pain resolved August 192024 9:39am [facility] Work Phone: 1(471) 782-921901-17-2025 Evaluation note* Diagnosis Onset Date Resolution Status Admit Date Bipolar disorder chronic April 29, 2024 10:26am Forgetfulness chronic April 10:26am Hypertension chronic April 10:26am Type 2 diabetes mellitus chronic April 29, 2024 10:26am Forgetfulness chronic June 082024 9:53am Sleep disturbance, unspecified suspected June 08 9:53am GERD (gastroesophageal reflu x disease) chronic June 10 10:03am Irritable bowel syndrome wit h alternating bowel habits chronic 2024 10:03am Atypical chest pain acute June 17, 2024 7:59am [facility] Work Phone: 1(501) 117-310512-28-2024 NoteHNO ID: [id number] Author: FINESSE JAVED PA Service: ? Author Type: Physician Division Road Supervisor Type: Progress Notes Filed: 04/09/2024 11:49 Note Text: This note was created using [employer]. Subjective Genet Cobb is a 29 year old female. HPI 29-year-old female presents for right hand wound. Patient states that she has 2 areas on her right hand that are raised, red and draining some clear drainage starting 2 days ago. She denies any injury or burn that she can recall. She states that she was exposed to her grandma who has MRSA currently. She states that she did not touch her grandmother's wound and use a lot of handwashing, but after being around her grandma, she noticed the spots on her hand the next day. She states it has not been draining any pus drainage, but just some clear drainage today. She states they are little bit painful. No itchiness. No rash anywhere else. No fevers. States she recently finished prednisone and doxycycline several weeks ago for respiratory infection. PAST MEDICAL HISTORY Diagnosis Date Anxiety Elevated blood pressure 01/07/2011 Excessive anger Headache(784.0) 03/13/2011 History of drug use meth and marajuana IBS (irritable bowel syndrome) Left ventricular hypertrophy Overweight(278.02) 01/07/2011 PAST SURGICAL HISTORY Procedure Laterality Date COLONOSCOPY FLX DX W/COLLJ SPEC WHEN PFRMD 07/04/2015 Colonoscopy LAPS SURG CHOLECYSTECTOMY W/CHOLANGIOGRAPHY 10-07-13 ALLERGIES Amoxicillin and Inderal [Propranolol] MEDICATIONS albuterol HFA (PROVENTIL HFA, VENTOLIN HFA) 90 mcg/actuation inhaler Inhale 2 Puffs as instructed every 6 hours as needed for wheezing/shortness of breath. atomoxetine (STRATTERA) 40 mg capsule take 1 capsule by mouth once daily in the morning lamoTRIgine (LAMICTAL) 200 mg tablet Take by mouth. metFORMIN (GLUCOPHAGE) 500 mg tablet Take by mouth. lisinopril (ZESTRIL, PRINIVIL) 10 mg tablet Take 1 tablet by mouth once daily. mupirocin (BACTROBAN) 2 % ointment Apply to affected area three times a day for 7 days. doxycycline monohydrate 100 mg tablet Take 1 tablet by mouth two times a day for 5 days. FAMILY HISTORY Problem Relation Age of Onset Hypertension Mother Diabetes Mother None Father Diabetes Maternal Grandmother Thyroid Maternal Grandmother Diabetes Maternal Grandfather Asthma Paternal Grandmother Diabetes Maternal Aunt Hypertension Maternal Aunt Social History Tobacco Use Smoking status: Every Day Current packs/day: 0.00 Types: Cigarettes Last attempt to quit: 05/14/2014 Years since quittin.9 Smokeless tobacco: Never Substance Use Topics Alcohol use: No Drug use: No Review of Systems Constitutional: Negative for chills and fever. HENT: Negative for congestion, ear pain and sore throat. Respiratory: Negative for cough and shortness of breath. Cardiovascular: Negative for chest pain. Gastrointestinal: Negative for diarrhea and vomiting. Skin: Positive for color change and rash. Objective BP 126/85 Pulse 109 Temp 37.2 ?C (98.9 ?F) Resp 18 Wt 96 kg (211 lb 10.3 oz) LMP 03/11/2024 (Within Days) SpO2 98% BMI 36.33 kg/m? Physical Exam Vitals and nursing note reviewed. Constitutional: General: She is not in acute distress. Appearance: Normal appearance. She is not toxic-appearing. Cardiovascular: Rate and Rhythm: Normal rate and regular rhythm. Pulmonary: Effort: Pulmonary effort is normal. Breath sounds: Normal breath sounds. Skin: General: Skin is warm and dry. Findings: Erythema and lesion present. Comments: 2 circular erythematous/purple raised lesions to dorsum of right hand between first and second digits. Clear drainage from one of the lesions noted. No purulence. No fluctuance or abscess. Small amount of surrounding erythema around the lesions. No rash anywhere else. Neurological: Mental Status: She is alert. Assessment and Plan ASSESSMENT/PLAN: 1. Skin infection - ICD9: 686.9, ICD10: L08.9 - Begin treatment with doxycycline. Recently exposed to MRSA. Patient's lisinopril interacts with Bactrim. Will cover with doxycycline. -Rx for mupirocin -Wound culture pending - No lymphangetic streaking, this was defined for patient to watch for and to seek medical care immediately if appears - Follow up for recheck in three days - ABSCESS AND WOUND CULTURE WITH GRAM STAIN Diagnosis and treatment plan were discussed and questions were answered to the patient's satisfaction. Pt acknowledged understanding of concepts and follow up plan. Specific signs and symptoms that would indicate the need for higher level of care were discussed in detail warranting prompt ER evaluation. Finesse Javed [facility]12-28-2024 History of Present illness Narrative* Finesse Javed, DEJA - 04/09/2024 11:46 AM EST Images from the original note were not included. This note was created using [employer]. Subjective Genet Cobb is a 29 year old female. HPI 29-year-old female presents for right hand wound. Patient states that she has 2 areas on her right hand that are raised, red and draining some clear drainage starting 2 days ago. She denies any injury or burn that she can recall. She states that she was exposed to her grandma who has MRSA currently. She states that she did not touch her grandmother's wound and use a lot of handwashing, but after being around her grandma, she noticed the spots on her hand the next day. She states it has not been draining any pus drainage, but just some clear drainage today. She states they are little bit painful. No itchiness. No rash anywhere else. No fevers. States she recently finished prednisone and doxycycline several weeks ago for respiratory infection. PAST MEDICAL HISTORY Diagnosis Date Anxiety Elevated blood pressure 01/07/2011 Excessive anger Headache(784.0) 03/13/2011 History of drug use meth and marajuana IBS (irritable bowel syndrome) Left ventricular hypertrophy Overweight(278.02) 01/07/2011 PAST SURGICAL HISTORY Procedure Laterality Date COLONOSCOPY FLX DX W/COLLJ SPEC WHEN PFRMD 07/04/2015 Colonoscopy LAPS SURG CHOLECYSTECTOMY W/CHOLANGIOGRAPHY 10-07-13 ALLERGIES Amoxicillin and Inderal [Propranolol] MEDICATIONS albuterol HFA (PROVENTIL HFA, VENTOLIN HFA) 90 mcg/actuation inhaler Inhale 2 Puffs as instructed every 6 hours as needed for wheezing/shortness of breath. atomoxetine (STRATTERA) 40 mg capsule take 1 capsule by mouth once daily in the morning lamoTRIgine (LAMICTAL) 200 mg tablet Take by mouth. metFORMIN (GLUCOPHAGE) 500 mg tablet Take by mouth. lisinopril (ZESTRIL, PRINIVIL) 10 mg tablet Take 1 tablet by mouth once daily. mupirocin (BACTROBAN) 2 % ointment Apply to affected area three times a day for 7 days. doxycycline monohydrate 100 mg tablet Take 1 tablet by mouth two times a day for 5 days. FAMILY HISTORY Problem Relation Age of Onset Hypertension Mother Diabetes Mother None Father Diabetes Maternal Grandmother Thyroid Maternal Grandmother Diabetes Maternal Grandfather Asthma Paternal Grandmother Diabetes Maternal Aunt Hypertension Maternal Aunt Social History Tobacco Use Smoking status: Every Day Current packs/day: 0.00 Types: Cigarettes Last attempt to quit: 05/14/2014 Years since quittin.9 Smokeless tobacco: Never Substance Use Topics Alcohol use: No Drug use: No Review of Systems Constitutional: Negative for chills and fever. HENT: Negative for congestion, ear pain and sore throat. Respiratory: Negative for cough and shortness of breath. Cardiovascular: Negative for chest pain. Gastrointestinal: Negative for diarrhea and vomiting. Skin: Positive for color change and rash. Objective BP 126/85 Pulse 109 Temp 37.2 C (98.9 F) Resp 18 Wt 96 kg (211 lb 10.3 oz) LMP 03/11/2024(Within Days) SpO2 98% BMI 36.33 kg/m Physical Exam Vitals and nursing note reviewed. Constitutional: General: She is not in acute distress. Appearance: Normal appearance. She is not toxic-appearing. Cardiovascular: Rate and Rhythm: Normal rate and regular rhythm. Pulmonary: Effort: Pulmonary effort is normal. Breath sounds: Normal breath sounds. Skin: General: Skin is warm and dry. Findings: Erythema and lesion present. Comments: 2 circular erythematous/purple raised lesions to dorsum of right hand between first and second digits. Clear drainage from one of the lesions noted. No purulence. No fluctuance or abscess. Small amount of surrounding erythema around the lesions. No rash anywhere else. Neurological: Mental Status: She is alert. Assessment and Plan ASSESSMENT/PLAN: 1. Skin infection - ICD9: 686.9, ICD10: L08.9 - Begin treatment with doxycycline. Recently exposed to MRSA. Patient's lisinopril interacts with Bactrim. Will cover with doxycycline. -Rx for mupirocin -Wound culture pending - No lymphangetic streaking, this was defined for patient to watch for and to seek medical care immediately if appears - Follow up for recheck in three days - ABSCESS AND WOUND CULTURE WITH GRAM STAIN Diagnosis and treatment plan were discussed and questions were answered to the patient's satisfaction. Pt acknowledged understanding of concepts and follow up plan. Specific signs and symptoms that would indicate the need for higher level of care were discussed in detail warranting prompt ER evaluation. DEJA Loredo [facility] NoteHNO ID: [id number] Author: CLAYTON CHOUDHURY APRN.FABRIC 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 Service: ? Author Type: Nurse Practitioner Type: Progress Notes Filed: 03/31/2024 19:55 Note Text: Subjective HPI Nontoxic female presents urgent care chief plaint cough and wheezing. Duration of symptoms 4 days. Associate symptoms listed above. Most prominent symptom today is cough. Has became predominant and productive. Denies any known sick contacts. Albuterol use this afternoon this did help. Denies any chest pain or hemoptysis or pleuritic pain. Denies chance of . Past medical history prescription medications allergies reviewed. .Patient presents with: Cough: DEL ANGEL, wheezing x 3 days PAST MEDICAL HISTORY Diagnosis Date Anxiety Elevated blood pressure 01/07/2011 Excessive anger Headache(784.0) 03/13/2011 History of drug use meth and marajuana IBS (irritable bowel syndrome) Left ventricular hypertrophy Overweight(278.02) 01/07/2011 PAST SURGICAL HISTORY Procedure Laterality Date COLONOSCOPY FLX DX W/COLLJ SPEC WHEN PFRMD 07/04/2015 Colonoscopy LAPS SURG CHOLECYSTECTOMY W/CHOLANGIOGRAPHY 10-07-13 ALLERGIES Amoxicillin and Inderal [Propranolol] MEDICATIONS atomoxetine (STRATTERA) 40 mg capsule take 1 capsule by mouth once daily in the morning lamoTRIgine (LAMICTAL) 200 mg tablet Take by mouth. metFORMIN (GLUCOPHAGE) 500 mg tablet Take by mouth. lisinopril (ZESTRIL, PRINIVIL) 10 mg tablet Take 1 tablet by mouth once daily. benzonatate (TESSALON PERLES) 100 mg capsule Take 1 capsule by mouth three times a day as needed for cough. (Patient not taking: Reported on 03/31/2024) predniSONE (DELTASONE) 10 mg tablet Take 4 tabs daily for 3 days, then 2 tabs daily for 3 days, then 1 tab daily for 3 days with food. (Patient not taking: Reported on 03/31/2024) levothyroxine (SYNTHROID) 25 mcg tablet (Patient not taking: Reported on 11/27/2023) busPIRone (BUSPAR) 10 mg tablet Take 1 tablet by mouth twice daily. (Patient not taking: Reported on 11/27/2023) Levonorgestrel-Ethinyl Estrad 0.1mg - 20mcg per tablet Take 1 tablet by mouth as directed. (Patient not taking: Reported on 11/27/2023) FAMILY HISTORY Problem Relation Age of Onset Hypertension Mother Diabetes Mother None Father Diabetes Maternal Grandmother Thyroid Maternal Grandmother Diabetes Maternal Grandfather Asthma Paternal Grandmother Diabetes Maternal Aunt Hypertension Maternal Aunt Social History Tobacco Use Smoking status: Every Day Current packs/day: 0.00 Types: Cigarettes Last attempt to quit: 05/14/2014 Years since quittin.8 Smokeless tobacco: Never Substance Use Topics Alcohol use: No Drug use: No BP 118/80 Pulse 100 Temp 36.7 ?C (98 ?F) Resp 20 Wt 92.5 kg (203 lb 14.8 oz) LMP 11/02/2023 (Within Days) SpO2 96% BMI 35.00 kg/m? Review of Systems Constitutional: Negative for chills, fever and malaise/fatigue. HENT: Positive for congestion. Negative for ear discharge, ear pain, sinus pain and sore throat. Eyes: Negative for blurred vision, pain, discharge and redness. Respiratory: Positive for cough, sputum production and wheezing. Negative for hemoptysis, shortness of breath and stridor. Cardiovascular: Negative for chest pain. Gastrointestinal: Negative for abdominal pain, diarrhea, nausea and vomiting. Musculoskeletal: Negative for myalgias. Skin: Negative for itching and rash. Neurological: Positive for headaches. Negative for dizziness. Objective Physical Exam Constitutional: General: She is not in acute distress. Appearance: She is not diaphoretic. HENT: Head: Normocephalic. Jaw: No trismus, tenderness, swelling or pain on movement. Nose: Congestion present. Mouth/Throat: Mouth: Mucous membranes are moist. Pharynx: Oropharynx is clear. Uvula midline. No pharyngeal swelling, oropharyngeal exudate, posterior oropharyngeal erythema or uvula swelling. Eyes: Conjunctiva/sclera: Conjunctivae normal. Pupils: Pupils are equal, round, and reactive to light. Cardiovascular: Rate and Rhythm: Normal rate and regular rhythm. Heart sounds: Normal heart sounds. Pulmonary: Effort: Pulmonary effort is normal. No tachypnea, accessory muscle usage or respiratory distress. Breath sounds: No stridor. Wheezing and rhonchi present. No rales. Abdominal: General: There is no distension. Palpations: Abdomen is soft. Tenderness: There is no abdominal tenderness. There is no guarding or rebound. Musculoskeletal: Cervical back: Normal range of motion and neck supple. No edema, erythema, rigidity or tenderness. No pain with movement. Normal range of motion. Lymphadenopathy: Cervical: No cervical adenopathy. Skin: General: Skin is warm and dry. Neurological: Mental Status: She is alert and oriented to person, place, and time. ASSESSMENT/PLAN: 1. Lower respiratory tract infection - ICD9: 519.8, ICD10: J22 Diagnosis lower respiratory tract infection. Placed on doxy (more content not included)...[facility]12-19-2024 History of Present illness Narrative* Clayton Choudhury, MAGGIE.FABRIC 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 - 03/31/2024 7:47 PM EST Subjective HPI Nontoxic female presents urgent care chief plaint cough and wheezing. Duration of symptoms 4 days. Associate symptoms listed above. Most prominent symptom today is cough. Has became predominant and productive. Denies any known sick contacts. Albuterol use this afternoon this did help. Denies any chest pain or hemoptysis or pleuritic pain. Denies chance of . Past medical history prescription medications allergies reviewed. .Patient presents with: Cough: DEL ANGEL, wheezing x 3 days PAST MEDICAL HISTORY Diagnosis Date Anxiety Elevated blood pressure 01/07/2011 Excessive anger Headache(784.0) 03/13/2011 History of drug use meth and marajuana IBS (irritable bowel syndrome) Left ventricular hypertrophy Overweight(278.02) 01/07/2011 PAST SURGICAL HISTORY Procedure Laterality Date COLONOSCOPY FLX DX W/COLLJ SPEC WHEN PFRMD 07/04/2015 Colonoscopy LAPS SURG CHOLECYSTECTOMY W/CHOLANGIOGRAPHY 10-07-13 ALLERGIES Amoxicillin and Inderal [Propranolol] MEDICATIONS atomoxetine (STRATTERA) 40 mg capsule take 1 capsule by mouth once daily in the morning lamoTRIgine (LAMICTAL) 200 mg tablet Take by mouth. metFORMIN (GLUCOPHAGE) 500 mg tablet Take by mouth. lisinopril (ZESTRIL, PRINIVIL) 10 mg tablet Take 1 tablet by mouth once daily. benzonatate (TESSALON PERLES) 100 mg capsule Take 1 capsule by mouth three times a day as needed for cough. (Patient not taking: Reported on 03/31/2024) predniSONE (DELTASONE) 10 mg tablet Take 4 tabs daily for 3 days, then 2 tabs daily for 3 days, then 1 tab daily for 3 days with food. (Patient not taking: Reported on 03/31/2024) levothyroxine (SYNTHROID) 25 mcg tablet (Patient not taking: Reported on 11/27/2023) busPIRone (BUSPAR) 10 mg tablet Take 1 tablet by mouth twice daily. (Patient not taking: Reported on 11/27/2023) Levonorgestrel-Ethinyl Estrad 0.1mg - 20mcg per tablet Take 1 tablet by mouth as directed. (Patientnot taking: Reported on 11/27/2023) FAMILY HISTORY Problem Relation Age of Onset Hypertension Mother Diabetes Mother None Father Diabetes Maternal Grandmother Thyroid Maternal Grandmother Diabetes Maternal Grandfather Asthma Paternal Grandmother Diabetes Maternal Aunt Hypertension Maternal Aunt Social History Tobacco Use Smoking status: Every Day Current packs/day: 0.00 Types: Cigarettes Last attempt to quit: 05/14/2014 Years since quittin.8 Smokeless tobacco: Never Substance Use Topics Alcohol use: No Drug use: No BP 118/80 Pulse 100 Temp 36.7 C (98 F) Resp 20 Wt 92.5 kg (203 lb 14.8 oz) LMP 11/02/2023(Within Days) SpO2 96% BMI 35.00 kg/m Review of Systems Constitutional: Negative for chills, fever and malaise/fatigue. HENT: Positive for congestion. Negative for ear discharge, ear pain, sinus pain and sore throat. Eyes: Negative for blurred vision, pain, discharge and redness. Respiratory: Positive for cough, sputum production and wheezing. Negative for hemoptysis, shortnessof breath and stridor. Cardiovascular: Negative for chest pain. Gastrointestinal: Negative for abdominal pain, diarrhea, nausea and vomiting. Musculoskeletal: Negative for myalgias. Skin: Negative for itching and rash. Neurological: Positive for headaches. Negative for dizziness. Objective Physical Exam Constitutional: General: She is not in acute distress. Appearance: She is not diaphoretic. HENT: Head: Normocephalic. Jaw: No trismus, tenderness, swelling or pain on movement. Nose: Congestion present. Mouth/Throat: Mouth: Mucous membranes are moist. Pharynx: Oropharynx is clear. Uvula midline. No pharyngeal swelling, oropharyngeal exudate, posterior oropharyngeal erythema or uvula swelling. Eyes: Conjunctiva/sclera: Conjunctivae normal. Pupils: Pupils are equal, round, and reactive to light. Cardiovascular: Rate and Rhythm: Normal rate and regular rhythm. Heart sounds: Normal heart sounds. Pulmonary: Effort: Pulmonary effort is normal. No tachypnea, accessory muscle usage or respiratory distress. Breath sounds: No stridor. Wheezing and rhonchi present. No rales. Abdominal: General: There is no distension. Palpations: Abdomen is soft. Tenderness: There is no abdominal tenderness. There is no guarding or rebound. Musculoskeletal: Cervical back: Normal range of motion and neck supple. No edema, erythema, rigidity or tenderness. No pain with movement. Normal range of motion. Lymphadenopathy: Cervical: No cervical adenopathy. Skin: General: Skin is warm and dry. Neurological: Mental Status: She is alert and oriented to person, place, and time. ASSESSMENT/PLAN: 1. Lower respiratory tract infection - ICD9: 519.8, ICD10: J22 Diagnosis lower respiratory tract infection. Placed on doxycycline prednisone and albuterol. Patient was educated on supportive therapies. Patient will follow up with primary care provider as needed.Patient was instructed to immediately proceed to emergency room for any new, worsening, or symptomslasting longer than anticipated. The patient's clinical presentation is otherwise unremarkable at this time. Based on exam and clinical finding, the patient is stable for discharge. Plan of care was discussed with patient. Patient verbalizes understanding and agrees to plan of care. This note was generated using [employer] software. It may contain errors in wording, punctuation, or spelling. Clayton Choudhury APRN.FABRIC 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 [facility] Telephone encounter Note * Telephone Encounter - Pedro Storm MA - 01/29/2024 7:50 AM EDT Patient notified of results. Pedro Storm MA [facility]10-[facility] Miscellaneous Notes* Telephone Encounter - Pedro Storm MA - 01/29/2024 7:50 AM EDT Patient notified of results. Pedro Storm MA * Telephone Encounter - Finesse Javed PA - 01/28/2024 6:44 PM EDT Negative COVID flu RSV [facility] Telephone encounter Note * Telephone Encounter - Finesse Javed PA - 01/28/2024 6:44 PM EDT Negative COVID flu RSV [facility] Work Phone: [phone] History of Present illness Narrative* Edwige Ventura RT(R) - 01/28/2024 10:20 AM EDT Radiology Service Progress Note PATIENT NAME: Genet Cobb DATE OF SERVICE: January 28, 2024 TIME: 10:23 AM PATIENT IDENTITY VERIFICATION COMPLETED USING TWO (2) IDENTIFIERS: Name and Date of confirmedby patient verbally. FALL SCREENING: Has the patient had 2 falls in the last year or 1 fall with injury or currently using an Ambulatory Assistive Device (Walker, Cane, Wheelchair, Crutches, etc.)? No PATIENT GENDER DATA: Female. status: : No status: NO. PATIENT RELEVANT IMPLANT DATA REVIEWED: Not Applicable PATIENT PRESENTS WITH AN IMPLANTABLE OR ATTACHED FIRE MARSHAL: No RADIOLOGY DEPARTMENT: General X-ray: Exam(s) Completed: Chest X-Ray PERIPHERAL IV DATA: Not applicable SIGNED BY: CHACHA Luo) January 28, 2024 10:23 AM documented in this encounterH[facility]10-[facility]-2024 NoteHNO ID: [id number] Author: EDWIGE VENTURA RT (R) Service: Radiology Author Type: Technologist Type: Progress Notes Filed: 01/28/2024 10:27 Note Text: Radiology Service Progress Note PATIENT NAME: Genet Cobb DATE OF SERVICE: January 28, 2024 TIME: 10:23 AM PATIENT IDENTITY VERIFICATION COMPLETED USING TWO (2) IDENTIFIERS: Name and Date of confirmed by patient verbally. FALL SCREENING: Has the patient had 2 falls in the last year or 1 fall with injury or currently using an Ambulatory Assistive Device (Walker, Cane, Wheelchair, Crutches, etc.)? No PATIENT GENDER DATA: Female. status: : No status: NO. PATIENT RELEVANT IMPLANT DATA REVIEWED: Not Applicable PATIENT PRESENTS WITH AN IMPLANTABLE OR ATTACHED FIRE MARSHAL: No RADIOLOGY DEPARTMENT: General X-ray: Exam(s) Completed: Chest X-Ray PERIPHERAL IV DATA: Not applicable SIGNED BY: CHACHA Luo) January 28, 2024 10:23 [facility]10-17-2024 NoteHNO ID: [id number] Author: HARRIETT CASTILLO APRN.FABRIC 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 Service: ? Author Type: Nurse Practitioner Type: Progress Notes Filed: 01/28/2024 11:35 Note Text: This note was created using NoteWriter. Subjective Genet Cobb is a 28 year old female. 28 year old female with PMH HTN, DM (metformin), IBS, anxiety presents for illness. Acute onset 2 days ago +runny nose + cough +chest congestion +body aches +chills +fever Denies CP Denies dyspnea Denies SOB Vapes Denies that she has had difficulty with vaping. The history is provided by the patient. Cough This is a new problem. The current episode started 2 days ago. The problem occurs constantly. The cough is Productive of sputum. The maximum temperature recorded prior to her arrival was 100 to 100.9 F. Associated symptoms include chills, sweats, headaches, rhinorrhea, myalgias, shortness of breath and wheezing. Pertinent negatives include no chest pain, no weight loss and no eye redness. Treatments tried: Benadryl. The treatment provided no relief. She is a smoker. Her past medical history does not include bronchitis, pneumonia, bronchiectasis, COPD, emphysema or asthma. PAST MEDICAL HISTORY Diagnosis Date Anxiety Elevated blood pressure 01/07/2011 Excessive anger Headache(784.0) 03/13/2011 History of drug use meth and marajuana IBS (irritable bowel syndrome) Left ventricular hypertrophy Overweight(278.02) 01/07/2011 PAST SURGICAL HISTORY Procedure Laterality Date COLONOSCOPY FLX DX W/COLLJ SPEC WHEN PFRMD 07/04/2015 Colonoscopy LAPS SURG CHOLECYSTECTOMY W/CHOLANGIOGRAPHY 10-07-13 ALLERGIES Amoxicillin and Inderal [Propranolol] MEDICATIONS atomoxetine (STRATTERA) 40 mg capsule take 1 capsule by mouth once daily in the morning lamoTRIgine (LAMICTAL) 200 mg tablet Take by mouth. metFORMIN (GLUCOPHAGE) 500 mg tablet Take by mouth. lisinopril (ZESTRIL, PRINIVIL) 10 mg tablet Take 1 tablet by mouth once daily. benzonatate (TESSALON PERLES) 100 mg capsule Take 1 capsule by mouth three times a day as needed for cough. predniSONE (DELTASONE) 10 mg tablet Take 4 tabs daily for 3 days, then 2 tabs daily for 3 days, then 1 tab daily for 3 days with food. levothyroxine (SYNTHROID) 25 mcg tablet (Patient not taking: Reported on 11/27/2023) busPIRone (BUSPAR) 10 mg tablet Take 1 tablet by mouth twice daily. (Patient not taking: Reported on 11/27/2023) Levonorgestrel-Ethinyl Estrad 0.1mg - 20mcg per tablet Take 1 tablet by mouth as directed. (Patient not taking: Reported on 11/27/2023) FAMILY HISTORY Problem Relation Age of Onset Hypertension Mother Diabetes Mother None Father Diabetes Maternal Grandmother Thyroid Maternal Grandmother Diabetes Maternal Grandfather Asthma Paternal Grandmother Diabetes Maternal Aunt Hypertension Maternal Aunt Social History Tobacco Use Smoking status: Every Day Current packs/day: 0.00 Types: Cigarettes Last attempt to quit: 05/14/2014 Years since quittin.7 Smokeless tobacco: Never Substance Use Topics Alcohol use: No Drug use: No Review of Systems Constitutional: Positive for chills and fatigue. Negative for weight loss. HENT: Positive for congestion and rhinorrhea. Eyes: Negative for pain, discharge, redness and itching. Respiratory: Positive for cough, shortness of breath and wheezing. Cardiovascular: Negative for chest pain. Gastrointestinal: Negative for abdominal pain, diarrhea, nausea and vomiting. Musculoskeletal: Positive for myalgias. Negative for arthralgias and back pain. Skin: Negative for color change and pallor. Allergic/Immunologic: Negative for environmental allergies, food allergies and immunocompromised state. Neurological: Positive for headaches. Hematological: Negative for adenopathy. Does not bruise/bleed easily. Psychiatric/Behavioral: Negative for agitation and behavioral problems. Objective BP 122/85 Pulse 76 Temp 37.1 ?C (98.8 ?F) Resp 18 Wt 88.6 kg (195 lb 5.2 oz) LMP 11/02/2023 (Within Days) SpO2 96% BMI 33.53 kg/m? Physical Exam Vitals and nursing note reviewed. Constitutional: General: She is not in acute distress. Appearance: Normal appearance. She is normal weight. She is not ill-appearing, toxic-appearing or diaphoretic. HENT: Head: Normocephalic and atraumatic. Right Ear: Ear canal and external ear normal. Left Ear: Ear canal and external ear normal. Nose: Congestion present. No rhinorrhea. Mouth/Throat: Mouth: Mucous membranes are moist. Pharynx: Posterior oropharyngeal erythema present. No oropharyngeal exudate. Eyes: General: Right eye: No discharge. Left eye: No discharge. Extraocular Movements: Extraocular movements intact. Conjunctiva/sclera: Conjunctivae normal. Pupils: Pupils are equal, round, and reactive to light. Cardiovascular: Rate and Rhythm: Normal rate and regular rhythm. Pulses: Normal pulses. Heart sounds: Normal heart sounds. No murm (more content not included)... [facility]10[facility] History of Present illness Narrative* Harriett Castillo APRN.FABRIC 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 - 01/28/2024 10:03 AM EDT This note was created using NoteWriter. Subjective Genet Cobb is a 28 year old female. 28 year old female with PMH HTN, DM (metformin), IBS, anxiety presents for illness. Acute onset 2 days ago +runny nose + cough +chest congestion +body aches +chills +fever Denies CP Denies dyspnea Denies SOB Vapes Denies that she has had difficulty with vaping. The history is provided by the patient. Cough This is a new problem. The current episode started 2 days ago. The problem occurs constantly. The cough is Productive of sputum. The maximum temperature recorded prior to her arrival was 100 to 100.9F. Associated symptoms include chills, sweats, headaches, rhinorrhea, myalgias, shortness of breathand wheezing. Pertinent negatives include no chest pain, no weight loss and no eye redness. Treatments tried: Benadryl. The treatment provided no relief. She is a smoker. Her past medical history does not include bronchitis, pneumonia, bronchiectasis, COPD, emphysema or asthma. PAST MEDICAL HISTORY Diagnosis Date Anxiety Elevated blood pressure 01/07/2011 Excessive anger Headache(784.0) 03/13/2011 History of drug use meth and marajuana IBS (irritable bowel syndrome) Left ventricular hypertrophy Overweight(278.02) 01/07/2011 PAST SURGICAL HISTORY Procedure Laterality Date COLONOSCOPY FLX DX W/COLLJ SPEC WHEN PFRMD 07/04/2015 Colonoscopy LAPS SURG CHOLECYSTECTOMY W/CHOLANGIOGRAPHY 10-07-13 ALLERGIES Amoxicillin and Inderal [Propranolol] MEDICATIONS atomoxetine (STRATTERA) 40 mg capsule take 1 capsule by mouth once daily in the morning lamoTRIgine (LAMICTAL) 200 mg tablet Take by mouth. metFORMIN (GLUCOPHAGE) 500 mg tablet Take by mouth. lisinopril (ZESTRIL, PRINIVIL) 10 mg tablet Take 1 tablet by mouth once daily. benzonatate (TESSALON PERLES) 100 mg capsule Take 1 capsule by mouth three times a day as needed for cough. predniSONE (DELTASONE) 10 mg tablet Take 4 tabs daily for 3 days, then 2 tabs daily for 3 days, then 1 tab daily for 3 days with food. levothyroxine (SYNTHROID) 25 mcg tablet (Patient not taking: Reported on 11/27/2023) busPIRone (BUSPAR) 10 mg tablet Take 1 tablet by mouth twice daily. (Patient not taking: Reported on 11/27/2023) Levonorgestrel-Ethinyl Estrad 0.1mg - 20mcg per tablet Take 1 tablet by mouth as directed. (Patientnot taking: Reported on 11/27/2023) FAMILY HISTORY Problem Relation Age of Onset Hypertension Mother Diabetes Mother None Father Diabetes Maternal Grandmother Thyroid Maternal Grandmother Diabetes Maternal Grandfather Asthma Paternal Grandmother Diabetes Maternal Aunt Hypertension Maternal Aunt Social History Tobacco Use Smoking status: Every Day Current packs/day: 0.00 Types: Cigarettes Last attempt to quit: 05/14/2014 Years since quittin.7 Smokeless tobacco: Never Substance Use Topics Alcohol use: No Drug use: No Review of Systems Constitutional: Positive for chills and fatigue. Negative for weight loss. HENT: Positive for congestion and rhinorrhea. Eyes: Negative for pain, discharge, redness and itching. Respiratory: Positive for cough, shortness of breath and wheezing. Cardiovascular: Negative for chest pain. Gastrointestinal: Negative for abdominal pain, diarrhea, nausea and vomiting. Musculoskeletal: Positive for myalgias. Negative for arthralgias and back pain. Skin: Negative for color change and pallor. Allergic/Immunologic: Negative for environmental allergies, food allergies and immunocompromised state. Neurological: Positive for headaches. Hematological: Negative for adenopathy. Does not bruise/bleed easily. Psychiatric/Behavioral: Negative for agitation and behavioral problems. Objective BP 122/85 Pulse 76 Temp 37.1 C (98.8 F) Resp 18 Wt 88.6 kg (195 lb 5.2 oz) LMP 11/02/2023(Within Days) SpO2 96% BMI 33.53 kg/m Physical Exam Vitals and nursing note reviewed. Constitutional: General: She is not in acute distress. Appearance: Normal appearance. She is normal weight. She is not ill-appearing, toxic-appearing or diaphoretic. HENT: Head: Normocephalic and atraumatic. Right Ear: Ear canal and external ear normal. Left Ear: Ear canal and external ear normal. Nose: Congestion present. No rhinorrhea. Mouth/Throat: Mouth: Mucous membranes are moist. Pharynx: Posterior oropharyngeal erythema present. No oropharyngeal exudate. Eyes: General: Right eye: No discharge. Left eye: No discharge. Extraocular Movements: Extraocular movements intact. Conjunctiva/sclera: Conjunctivae normal. Pupils: Pupils are equal, round, and reactive to light. Cardiovascular: Rate and Rhythm: Normal rate and regular rhythm. Pulses: Normal pulses. Heart sounds: Normal heart sounds. No murmur heard. No friction rub. Pulmonary: Effort: Pulmonary effort is normal. No respiratory distress. Breath sounds: Normal breath sounds. No stridor. No wheezing, rhonchi or rales. Chest: Chest wall: No tenderness. Abdominal: General: Abdomen is flat. There is no distension. Palpations: Abdomen is soft. There is no mass. Tenderness: There is no abdominal tenderness. There is no right CVA tenderness, left CVA tenderness, guarding or rebound. Hernia: No hernia is present. Musculoskeletal: General: No swelling, tenderness, deformity or signs of injury. Normal range of motion. Cervical back: Normal range of motion and neck supple. No rigidity. Right lower leg: No edema. Left lower leg: No edema. Lymphadenopathy: Cervical: Cervical adenopathy present. Skin: General: Skin is warm and dry. Capillary Refill: Capillary refill takes less than 2 seconds. Coloration: Skin is not jaundiced or pale. Findings: No bruising, erythema, lesion or rash. Neurological: General: No focal deficit present. Mental Status: She is alert and oriented to person, place, and time. Cranial Nerves: No cranial nerve deficit. Sensory: No sensory deficit. Motor: No weakness. Coordination: Coordination normal. Gait: Gait normal. Psychiatric: Mood and Affect: Mood normal. Behavior: Behavior normal. Thought Content: Thought content normal. Judgment: Judgment normal. Assessment and Plan ASSESSMENT/PLAN: 1. URI, acute - ICD9: 465.9, ICD10: J06.9 (primary diagnosis) X 2 days No red flags - Discussed viral etiology and rationale for treatment. - Symptomatic treatment with prn analgesia - Supportive care with fluids and rest - The patient may also use OTC cough and cold meds as needed, warm salt water gargles, throat lozenges and/or OTC throat spray as needed, and nasal saline gtts and suction prn. - Follow up in 3-5 days if symptoms persist or sooner if worsening of symptoms - - COVID & INFLUENZA A/B & RSV PCR, ROUTINE - XR CHEST 2V FRONTAL/LAT-negative - BENZONATATE 100 MG CAPSULE - PREDNISONE 10 MG TABLET 2. Acute cough - ICD9: 786.2, ICD10: R05.1 X 2 days +tobacco usage No red flags - XR CHEST 2V FRONTAL/LAT-negative - BENZONATATE 100 MG CAPSULE - PREDNISONE 10 MG TABLET Harriett Castillo APRN.FABRIC 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 [facility] History of Present illness Narrative* Edwige Ventura RT(R) - 01/25/2024 1:30 PM EDT Radiology Service Progress Note PATIENT NAME: Genet Cobb DATE OF SERVICE: January 25, 2024 TIME: 1:24 PM PATIENT IDENTITY VERIFICATION COMPLETED USING TWO (2) IDENTIFIERS: Name and Date of confirmedby patient verbally. FALL SCREENING: Has the patient had 2 falls in the last year or 1 fall with injury or currently using an Ambulatory Assistive Device (Walker, Cane, Wheelchair, Crutches, etc.)? No PATIENT GENDER DATA: Female. status: : No status: NO. PATIENT RELEVANT IMPLANT DATA REVIEWED: Not Applicable PATIENT PRESENTS WITH AN IMPLANTABLE OR ATTACHED FIRE MARSHAL: No RADIOLOGY DEPARTMENT: General X-ray: Exam(s) Completed: Upper Extremity X- Ray(s): Forearm, right and Hand, right PERIPHERAL IV DATA: Not applicable SIGNED BY: RT Valerio(R) January 25, 2024 1:24 PM documented in [facility]24 NoteHNO ID: [id number] Author: EDWIGE VENTURA RT(R) Service: Radiology Author Type: Technologist Type: Progress Notes Filed: 01/25/2024 13:32 Note Text: Radiology Service Progress Note PATIENT NAME: Genet Cobb DATE OF SERVICE: January 25, 2024 TIME: 1:24 PM PATIENT IDENTITY VERIFICATION COMPLETED USING TWO (2) IDENTIFIERS: Name and Date of confirmed by patient verbally. FALL SCREENING: Has the patient had 2 falls in the last year or 1 fall with injury or currently using an Ambulatory Assistive Device (Walker, Cane, Wheelchair, Crutches, etc.)? No PATIENT GENDER DATA: Female. status: : No status: NO. PATIENT RELEVANT IMPLANT DATA REVIEWED: Not Applicable PATIENT PRESENTS WITH AN IMPLANTABLE OR ATTACHED FIRE MARSHAL: No RADIOLOGY DEPARTMENT: General X-ray: Exam(s) Completed: Upper Extremity X-Ray(s): Forearm, right and Hand, right PERIPHERAL IV DATA: Not applicable SIGNED BY: RT Valerio(R) January 25, 2024 1:24 [facility]10-14-2024 NoteHNO ID: [id number] Author: HARRIETT CASTILLO APRN.FABRIC 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 Service: ? Author Type: Nurse Practitioner Type: Progress Notes Filed: 01/25/2024 14:13 Note Text: This note was created using NoteWriter. Subjective Genet Cobb is a 28 year old female. 28 year old female with PMH HTN, DM presents for complaints of musculoskeletal complaints Acute onset 2 days ago Right hand and right wrist. States was annoyed when I woke up And states she open handed was hitting the window ledge +aching pain +pain with use and touching Denies head injury Denies neck or back pain Denies prior history of right hand surgery or fractures. Right hand dominant The history is provided by the patient. No electromechanical equipment assembler was used. Wrist Pain This is a new problem. Episode onset: 2 days ago. The problem occurs constantly. The problem has been unchanged. Pertinent negatives include no abdominal pain, anorexia, arthralgias, change in bowel habit, chest pain, chills, congestion, coughing, diaphoresis, fatigue, fever, headaches, joint swelling, myalgias, nausea, neck pain, numbness, rash, sore throat, swollen glands, urinary symptoms, vertigo, visual change, vomiting or weakness. Exacerbated by: touching, using and palpation. She has tried nothing for the symptoms. The treatment provided no relief. PAST MEDICAL HISTORY Diagnosis Date Anxiety Elevated blood pressure 01/07/2011 Excessive anger Headache(784.0) 03/13/2011 History of drug use meth and marajuana IBS (irritable bowel syndrome) Left ventricular hypertrophy Overweight(278.02) 01/07/2011 PAST SURGICAL HISTORY Procedure Laterality Date COLONOSCOPY FLX DX W/COLLJ SPEC WHEN PFRMD 07/04/2015 Colonoscopy LAPS SURG CHOLECYSTECTOMY W/CHOLANGIOGRAPHY 10-07-13 ALLERGIES Amoxicillin and Inderal [Propranolol] MEDICATIONS atomoxetine (STRATTERA) 40 mg capsule take 1 capsule by mouth once daily in the morning lamoTRIgine (LAMICTAL) 200 mg tablet Take by mouth. metFORMIN (GLUCOPHAGE) 500 mg tablet Take by mouth. lisinopril (ZESTRIL, PRINIVIL) 10 mg tablet Take 1 tablet by mouth once daily. levothyroxine (SYNTHROID) 25 mcg tablet (Patient not taking: Reported on 11/27/2023) busPIRone (BUSPAR) 10 mg tablet Take 1 tablet by mouth twice daily. (Patient not taking: Reported on 11/27/2023) Levonorgestrel-Ethinyl Estrad 0.1mg - 20mcg per tablet Take 1 tablet by mouth as directed. (Patient not taking: Reported on 11/27/2023) FAMILY HISTORY Problem Relation Age of Onset Hypertension Mother Diabetes Mother None Father Diabetes Maternal Grandmother Thyroid Maternal Grandmother Diabetes Maternal Grandfather Asthma Paternal Grandmother Diabetes Maternal Aunt Hypertension Maternal Aunt Social History Tobacco Use Smoking status: Every Day Current packs/day: 0.00 Types: Cigarettes Last attempt to quit: 05/14/2014 Years since quittin.7 Smokeless tobacco: Never Substance Use Topics Alcohol use: No Drug use: No Review of Systems Constitutional: Negative for chills, diaphoresis, fatigue and fever. HENT: Negative for congestion and sore throat. Eyes: Negative for pain, discharge, redness and itching. Respiratory: Negative for apnea, cough, choking and chest tightness. Cardiovascular: Negative for chest pain. Gastrointestinal: Negative for abdominal pain, anorexia, change in bowel habit, nausea and vomiting. Musculoskeletal: Negative for arthralgias, joint swelling, myalgias and neck pain. Right wrist AND right hand Skin: Negative for rash. Allergic/Immunologic: Negative for environmental allergies, food allergies and immunocompromised state. Neurological: Negative for dizziness, vertigo, facial asymmetry, weakness, numbness and headaches. Hematological: Negative for adenopathy. Does not bruise/bleed easily. Psychiatric/Behavioral: Negative for agitation and behavioral problems. Objective BP 110/66 Pulse 88 Temp 36.8 ?C (98.3 ?F) Resp 16 Wt 89.3 kg (196 lb 13.9 oz) LMP 11/02/2023 (Within Days) SpO2 97% BMI 33.79 kg/m? Physical Exam Vitals and nursing note reviewed. Constitutional: General: She is not in acute distress. Appearance: Normal appearance. She is normal weight. She is not ill-appearing, toxic-appearing or diaphoretic. HENT: Head: Normocephalic and atraumatic. Right Ear: Ear canal and external ear normal. Left Ear: Ear canal and external ear normal. Nose: No congestion or rhinorrhea. Mouth/Throat: Mouth: Mucous membranes are moist. Pharynx: No oropharyngeal exudate or posterior oropharyngeal erythema. Eyes: General: Right eye: No discharge. Left eye: No discharge. Extraocular Movements: Extraocular movements intact. Conjunctiva/sclera: Conjunctivae normal. Pupils: Pupils are equal, round, and reactive to light. Cardiovascular: Rate and Rhythm: Normal rate and regular rhythm. Pulses: Normal pulses. Heart sounds: Normal heart sounds. No murmur heard. (more content not included)...[facility]10-14-2024 History of Present illness Narrative* Harriett Castillo APRN.[facility] - 01/25/2024 1:19 PM EDT This note was created using Crunchfishriter. Subjective Genet Cobb is a 28 year old female. 28 year old female with PMH HTN, DM presents for complaints of musculoskeletal complaints Acute onset 2 days ago Right hand and right wrist. States was annoyed when I woke up And states she open handed was hitting the window ledge +aching pain +pain with use and touching Denies head injury Denies neck or back pain Denies prior history of right hand surgery or fractures. Right hand dominant The history is provided by the patient. No electromechanical equipment assembler was used. Wrist Pain This is a new problem. Episode onset: 2 days ago. The problem occurs constantly. The problem has been unchanged. Pertinent negatives include no abdominal pain, anorexia, arthralgias, change in bowel habit, chest pain, chills, congestion, coughing, diaphoresis, fatigue, fever, headaches, joint swelling, myalgias, nausea, neck pain, numbness, rash, sore throat, swollen glands, urinary symptoms, vertigo, visual change, vomiting or weakness. Exacerbated by: touching, using and palpation. She has tried nothing for the symptoms. The treatment provided no relief. PAST MEDICAL HISTORY Diagnosis Date Anxiety Elevated blood pressure 01/07/2011 Excessive anger Headache(784.0) 03/13/2011 History of drug use meth and marajuana IBS (irritable bowel syndrome) Left ventricular hypertrophy Overweight(278.02) 01/07/2011 PAST SURGICAL HISTORY Procedure Laterality Date COLONOSCOPY FLX DX W/COLLJ SPEC WHEN PFRMD 07/04/2015 Colonoscopy LAPS SURG CHOLECYSTECTOMY W/CHOLANGIOGRAPHY 10-07-13 ALLERGIES Amoxicillin and Inderal [Propranolol] MEDICATIONS atomoxetine (STRATTERA) 40 mg capsule take 1 capsule by mouth once daily in the morning lamoTRIgine (LAMICTAL) 200 mg tablet Take by mouth. metFORMIN (GLUCOPHAGE) 500 mg tablet Take by mouth. lisinopril (ZESTRIL, PRINIVIL) 10 mg tablet Take 1 tablet by mouth once daily. levothyroxine (SYNTHROID) 25 mcg tablet (Patient not taking: Reported on 11/27/2023) busPIRone (BUSPAR) 10 mg tablet Take 1 tablet by mouth twice daily. (Patient not taking: Reported on 11/27/2023) Levonorgestrel-Ethinyl Estrad 0.1mg - 20mcg per tablet Take 1 tablet by mouth as directed. (Patientnot taking: Reported on 11/27/2023) FAMILY HISTORY Problem Relation Age of Onset Hypertension Mother Diabetes Mother None Father Diabetes Maternal Grandmother Thyroid Maternal Grandmother Diabetes Maternal Grandfather Asthma Paternal Grandmother Diabetes Maternal Aunt Hypertension Maternal Aunt Social History Tobacco Use Smoking status: Every Day Current packs/day: 0.00 Types: Cigarettes Last attempt to quit: 05/14/2014 Years since quittin.7 Smokeless tobacco: Never Substance Use Topics Alcohol use: No Drug use: No Review of Systems Constitutional: Negative for chills, diaphoresis, fatigue and fever. HENT: Negative for congestion and sore throat. Eyes: Negative for pain, discharge, redness and itching. Respiratory: Negative for apnea, cough, choking and chest tightness. Cardiovascular: Negative for chest pain. Gastrointestinal: Negative for abdominal pain, anorexia, change in bowel habit, nausea and vomiting. Musculoskeletal: Negative for arthralgias, joint swelling, myalgias and neck pain. Right wrist & right hand Skin: Negative for rash. Allergic/Immunologic: Negative for environmental allergies, food allergies and immunocompromised state. Neurological: Negative for dizziness, vertigo, facial asymmetry, weakness, numbness and headaches. Hematological: Negative for adenopathy. Does not bruise/bleed easily. Psychiatric/Behavioral: Negative for agitation and behavioral problems. Objective BP 110/66 Pulse 88 Temp 36.8 C (98.3 F) Resp 16 Wt 89.3 kg (196 lb 13.9 oz) LMP 11/02/2023 (Within Days) SpO2 97% BMI 33.79 kg/m Physical Exam Vitals and nursing note reviewed. Constitutional: General: She is not in acute distress. Appearance: Normal appearance. She is normal weight. She is not ill-appearing, toxic-appearing or diaphoretic. HENT: Head: Normocephalic and atraumatic. Right Ear: Ear canal and external ear normal. Left Ear: Ear canal and external ear normal. Nose: No congestion or rhinorrhea. Mouth/Throat: Mouth: Mucous membranes are moist. Pharynx: No oropharyngeal exudate or posterior oropharyngeal erythema. Eyes: General: Right eye: No discharge. Left eye: No discharge. Extraocular Movements: Extraocular movements intact. Conjunctiva/sclera: Conjunctivae normal. Pupils: Pupils are equal, round, and reactive to light. Cardiovascular: Rate and Rhythm: Normal rate and regular rhythm. Pulses: Normal pulses. Heart sounds: Normal heart sounds. No murmur heard. No friction rub. Pulmonary: Effort: Pulmonary effort is normal. No respiratory distress. Breath sounds: Normal breath sounds. No stridor. No wheezing, rhonchi or rales. Chest: Chest wall: No tenderness. Abdominal: General: Abdomen is flat. There is no distension. Palpations: Abdomen is soft. There is no mass. Tenderness: There is no abdominal tenderness. There is no right CVA tenderness, left CVA tenderness, guarding or rebound. Hernia: No hernia is present. Musculoskeletal: General: Tenderness and signs of injury present. No swelling or deformity. Cervical back: Normal range of motion and neck supple. No rigidity. Right lower leg: No edema. Left lower leg: No edema. Comments: Patient has diffuse and generalized TTP noted along the ulnar aspect of hand and forearm. No break in skin integrity No obvious deformity. +neuro +sensation +flexion +extension x 5 fingers Lymphadenopathy: Cervical: No cervical adenopathy. Skin: General: Skin is warm and dry. Capillary Refill: Capillary refill takes less than 2 seconds. Coloration: Skin is not jaundiced or pale. Findings: No bruising, erythema, lesion or rash. Neurological: General: No focal deficit present. Mental Status: She is alert and oriented to person, place, and time. Cranial Nerves: No cranial nerve deficit. Sensory: No sensory deficit. Motor: No weakness. Coordination: Coordination normal. Gait: Gait normal. Psychiatric: Mood and Affect: Mood normal. Behavior: Behavior normal. Thought Content: Thought content normal. Judgment: Judgment normal. Assessment and Plan ASSESSMENT/PLAN: 1. Wrist pain, right - ICD9: 719.43, ICD10: M25.531 (primary diagnosis) Secondary to injury Hit on window ledge No red flags Neuro intact - XR FOREARM GENERAL 2V AP/LAT RIGHT-negative RICE therapy Wrist splint applied (DONJOY form completed by nursing staff) F/U with PCP and or ortho for continued symptoms. 2. Hand pain, right - ICD9: 729.5, ICD10: M79.641 Secondary to injury Hit on window ledge No red flags Neuro intact - XR HAND GENERAL 3V PA/LAT/OBL RIGHT-negative RICE therapy Wrist splint applied (DONJOY form completed by nursing staff) F/U with PCP and or ortho for continued symptoms. Harriett Castillo APRN.FABRIC 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 [facility] Telephone encounter Note * Telephone Encounter - Elias Yu MA - 11/29/2023 10:04 AM EDT Pt was notified of the results. Pt verbalized understanding. Elias Yu MA [facility] Miscellaneous Notes* Telephone Encounter - Elias Yu MA - 11/29/2023 10:04 AM EDT Pt was notified of the results. Pt verbalized understanding. Elias Yu MA * Telephone Encounter - Jermaine Grayson APRN.KAREN - 11/29/2023 9:31 AM EDT Urine culture did not grow any specific bacteria. If symptoms persist after medication you were prescribed yesterday please follow-up with primary care [facility] Telephone encounter Note * Telephone Encounter - Jermaine Grayson APRN.KAREN - 11/29/2023 9:31 AM EDT Urine culture did not grow any specific bacteria. If symptoms persist after medication you were prescribed yesterday please follow-up with primary care [facility] Telephone encounter Note* Telephone Encounter - Pedro Storm MA - 11/28/2023 8:45 AM EDT Patient notified of results, verbalized understanding of instructions given. Pedro Storm MA [facility] Miscellaneous Notes* Telephone Encounter - Pedro Storm MA - 11/28/2023 8:45 AM EDT Patient notified of results, verbalized understanding of instructions given. Pedro Storm MA * Telephone Encounter - Jermaine Grayson APRN.CNP - 11/28/2023 8:13 AM EDT Positive for yeast and bacterial vaginosis. Flagyl was called in for the BV please do not drink alcohol with this medication. Monistat cream was called in for the yeast. Negative for chlamydia, trichomonas, gonorrhea. documented in this [facility] Telephone encounter Note * Telephone Encounter - Jermaine Grayson APRN.CNP - 11/28/2023 8:13 AM EDT Positive for yeast and bacterial vaginosis. Flagyl was called in for the BV please do not drink alcohol with this medication. Monistat cream was called in for the yeast. Negative for chlamydia, trichomonas, gonorrhea. [facility]24 NoteHNO ID: [id number] Author: HARRIETT CASTILLO APRN.KAREN Service: ? Author Type: Nurse Practitioner Type: Progress Notes Filed: 11/27/2023 14:34 Note Text: This note was created using NoteWriter. Subjective Genet Cobb is a 28 year old female. 28 year old female with PMH HTN, IBS, dyslipidemia, pre-diabetes presents for complaints. 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 Denies skin rash or lesions. Denies N/V/D +sexually active LMP-October 26 The history is provided by the patient. No electromechanical equipment assembler was used. Female Gu Problem This is a new problem. The current episode started 3 to 5 days ago. The onset was sudden. The problem occurs continuously. The problem has been gradually worsening. The patient is experiencing no pain. Nothing relieves the symptoms. Nothing aggravates the symptoms. Associated symptoms include frequency, urgency and vaginal discharge. Pertinent negatives include no chest pain, no anorexia, no chills, no fever, no abdominal pain, no constipation, no diarrhea, no nausea, no vomiting, no dysuria, no hematuria, no pelvic pain, no vaginal bleeding, no vaginal pain, no headaches, no sore throat, no back pain, no flank pain, no cough, no rash and no dyspareunia. Urine output has been normal. The last void occurred Less than 6 hours ago. She is currently Sexually active. She has 1 sexual partner. Contraceptives used include nothing. She is not . She has missed her period. The patient's menstrual history has been irregular. There were no sick contacts. She has received no recent medical care. PAST MEDICAL HISTORY No date: Anxiety 01/07/2011: Elevated blood pressure No date: Excessive anger 03/13/2011: Headache(784.0) No date: History of drug use Comment: meth and marajuana No date: IBS (irritable bowel syndrome) No date: Left ventricular hypertrophy 01/07/2011: Overweight(278.02) PAST SURGICAL HISTORY 07/04/2015: COLONOSCOPY FLX DX W/COLLJ SPEC WHEN PFRMD Comment: Colonoscopy 10-07-13: LAPS SURG CHOLECYSTECTOMY W/CHOLANGIOGRAPHY ALLERGIES Amoxicillin and Inderal [Propranolol] MEDICATIONS atomoxetine (STRATTERA) 40 mg capsule take 1 capsule by mouth once daily in the morning lamoTRIgine (LAMICTAL) 200 mg tablet Take by mouth. metFORMIN (GLUCOPHAGE) 500 mg tablet Take by mouth. lisinopril (ZESTRIL, PRINIVIL) 10 mg tablet Take 1 tablet by mouth once daily. levothyroxine (SYNTHROID) 25 mcg tablet (Patient not taking: Reported on 11/27/2023) busPIRone (BUSPAR) 10 mg tablet Take 1 tablet by mouth twice daily. (Patient not taking: Reported on 11/27/2023) Levonorgestrel-Ethinyl Estrad 0.1mg - 20mcg per tablet Take 1 tablet by mouth as directed. (Patient not taking: Reported on 11/27/2023) FAMILY HISTORY Problem Relation Age of Onset Hypertension Mother Diabetes Mother None Father Diabetes Maternal Grandmother Thyroid Maternal Grandmother Diabetes Maternal Grandfather Asthma Paternal Grandmother Diabetes Maternal Aunt Hypertension Maternal Aunt Social History Tobacco Use Smoking status: Every Day Packs/day: .2 Types: Cigarettes Last attempt to quit: 05/14/2014 Years since quittin.5 Smokeless tobacco: Never Substance Use Topics Alcohol use: No Drug use: No Review of Systems Constitutional: Negative for chills and fever. HENT: Negative for sore throat. Eyes: Negative for pain, discharge, redness and itching. Respiratory: Negative for cough. Cardiovascular: Negative for chest pain. Gastrointestinal: Negative for abdominal pain, anorexia, constipation, diarrhea, nausea and vomiting. Genitourinary: Positive for frequency, urgency and vaginal discharge. Negative for dyspareunia, dysuria, flank pain, hematuria, pelvic pain, vaginal bleeding and vaginal pain. Musculoskeletal: Negative for back pain. Skin: Negative for color change, pallor and rash. Neurological: Negative for headaches. Psychiatric/Behavioral: Negative for agitation and behavioral problems. Objective BP 111/76 Pulse 95 Temp 36.9 ?C (98.4 ?F) Resp 18 Wt 88.6 kg (195 lb 5.2 oz) LMP 11/02/2023 (Within Days) SpO2 97% BMI 33.53 kg/m? Physical Exam Vitals and nursing note reviewed. Constitutional: General: She is not in acute distress. Appearance: Normal appearance. She is normal weight. She is not ill-appearing, toxic-appearing or diaphoretic. HENT: Head: Normocephalic and atraumatic. Right Ear: Ear canal and external ear normal. Left Ear: Ear canal and external ear normal. Nose: Nose normal. No congestion or rhinorrhea. Mouth/Throat: Mouth: Mucous membranes are moist. Pharynx: No oropharyngeal exudate or posterior oropharyngeal erythema. Eyes: General: Right eye: No discharge. Left eye: No discharge. Extraocular Movements: Extraocular movements intact. Conjunctiva/sclera: Conju (more content not included)...[facility]08-16-2024 History of Present illness Narrative* Harriett Castillo APRN.[facility] - 11/27/2023 1:57 PM EDT This note was created using NoteWriter. Subjective Genet Cobb is a 28 year old female. 28 year old female with PMH HTN, IBS, dyslipidemia, pre-diabetes presents for complaints. 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 Denies skin rash or lesions. Denies N/V/D +sexually active LMP-October 26 The history is provided by the patient. No electromechanical equipment assembler was used. Female Gu Problem This is a new problem. The current episode started 3 to 5 days ago. The onset was sudden. The problem occurs continuously. The problem has been gradually worsening. The patient is experiencing no pain. Nothing relieves the symptoms. Nothing aggravates the symptoms. Associated symptoms include frequency, urgency and vaginal discharge. Pertinent negatives include no chest pain, no anorexia, no chills, no fever, no abdominal pain, no constipation, no diarrhea, no nausea, no vomiting, no dysuria, no hematuria, no pelvic pain, no vaginal bleeding, no vaginal pain, no headaches, no sore throat, no back pain, no flank pain, no cough, no rash and no dyspareunia. Urine output has been normal. The last void occurred Less than 6 hours ago. She is currently Sexually active. She has 1 sexual partner. Contraceptives used include nothing. She is not . She has missed her period. The patient's menstrual history has been irregular. There were no sick contacts. She has received no recent medicalcare. PAST MEDICAL HISTORY No date: Anxiety 01/07/2011: Elevated blood pressure No date: Excessive anger 03/13/2011: Headache(784.0) No date: History of drug use Comment: meth and marajuana No date: IBS (irritable bowel syndrome) No date: Left ventricular hypertrophy 01/07/2011: Overweight(278.02) PAST SURGICAL HISTORY 07/04/2015: COLONOSCOPY FLX DX W/COLLJ SPEC WHEN PFRMD Comment: Colonoscopy 10-07-13: LAPS SURG CHOLECYSTECTOMY W/CHOLANGIOGRAPHY ALLERGIES Amoxicillin and Inderal [Propranolol] MEDICATIONS atomoxetine (STRATTERA) 40 mg capsule take 1 capsule by mouth once daily in the morning lamoTRIgine (LAMICTAL) 200 mg tablet Take by mouth. metFORMIN (GLUCOPHAGE) 500 mg tablet Take by mouth. lisinopril (ZESTRIL, PRINIVIL) 10 mg tablet Take 1 tablet by mouth once daily. levothyroxine (SYNTHROID) 25 mcg tablet (Patient not taking: Reported on 11/27/2023) busPIRone (BUSPAR) 10 mg tablet Take 1 tablet by mouth twice daily. (Patient not taking: Reported on 11/27/2023) Levonorgestrel-Ethinyl Estrad 0.1mg - 20mcg per tablet Take 1 tablet by mouth as directed. (Patientnot taking: Reported on 11/27/2023) FAMILY HISTORY Problem Relation Age of Onset Hypertension Mother Diabetes Mother None Father Diabetes Maternal Grandmother Thyroid Maternal Grandmother Diabetes Maternal Grandfather Asthma Paternal Grandmother Diabetes Maternal Aunt Hypertension Maternal Aunt Social History Tobacco Use Smoking status: Every Day Packs/day: .2 Types: Cigarettes Last attempt to quit: 05/14/2014 Years since quittin.5 Smokeless tobacco: Never Substance Use Topics Alcohol use: No Drug use: No Review of Systems Constitutional: Negative for chills and fever. HENT: Negative for sore throat. Eyes: Negative for pain, discharge, redness and itching. Respiratory: Negative for cough. Cardiovascular: Negative for chest pain. Gastrointestinal: Negative for abdominal pain, anorexia, constipation, diarrhea, nausea and vomiting. Genitourinary: Positive for frequency, urgency and vaginal discharge. Negative for dyspareunia, dysuria, flank pain, hematuria, pelvic pain, vaginal bleeding and vaginal pain. Musculoskeletal: Negative for back pain. Skin: Negative for color change, pallor and rash. Neurological: Negative for headaches. Psychiatric/Behavioral: Negative for agitation and behavioral problems. Objective BP 111/76 Pulse 95 Temp 36.9 C (98.4 F) Resp 18 Wt 88.6 kg (195 lb 5.2 oz) LMP 11/02/2023(Within Days) SpO2 97% BMI 33.53 kg/m Physical Exam Vitals and nursing note reviewed. Constitutional: General: She is not in acute distress. Appearance: Normal appearance. She is normal weight. She is not ill-appearing, toxic-appearing or diaphoretic. HENT: Head: Normocephalic and atraumatic. Right Ear: Ear canal and external ear normal. Left Ear: Ear canal and external ear normal. Nose: Nose normal. No congestion or rhinorrhea. Mouth/Throat: Mouth: Mucous membranes are moist. Pharynx: No oropharyngeal exudate or posterior oropharyngeal erythema. Eyes: General: Right eye: No discharge. Left eye: No discharge. Extraocular Movements: Extraocular movements intact. Conjunctiva/sclera: Conjunctivae normal. Pupils: Pupils are equal, round, and reactive to light. Cardiovascular: Rate and Rhythm: Normal rate and regular rhythm. Pulses: Normal pulses. Heart sounds: Normal heart sounds. No murmur heard. No friction rub. Pulmonary: Effort: Pulmonary effort is normal. No respiratory distress. Breath sounds: Normal breath sounds. No stridor. No wheezing, rhonchi or rales. Chest: Chest wall: No tenderness. Abdominal: General: Abdomen is flat. There is no distension. Palpations: Abdomen is soft. There is no mass. Tenderness: There is no abdominal tenderness. There is no right CVA tenderness, left CVA tenderness, guarding or rebound. Hernia: No hernia is present. Genitourinary: Comments: Declines pelvic exam. Musculoskeletal: General: No swelling, tenderness, deformity or signs of injury. Normal range of motion. Cervical back: Normal range of motion and neck supple. No rigidity. Right lower leg: No edema. Left lower leg: No edema. Lymphadenopathy: Cervical: No cervical adenopathy. Skin: General: Skin is warm and dry. Capillary Refill: Capillary refill takes less than 2 seconds. Coloration: Skin is not jaundiced or pale. Findings: No bruising, erythema, lesion or rash. Neurological: General: No focal deficit present. Mental Status: She is alert and oriented to person, place, and time. Cranial Nerves: No cranial nerve deficit. Sensory: No sensory deficit. Motor: No weakness. Coordination: Coordination normal. Gait: Gait normal. Psychiatric: Mood and Affect: Mood normal. Behavior: Behavior normal. Thought Content: Thought content normal. Judgment: Judgment normal. Assessment and Plan ASSESSMENT/PLAN: 1. Urinary frequency - ICD9: 788.41, ICD10: R35.0 (primary diagnosis) acute - UA negative - Send urine for culture - Patient education for prevention given - UA DIP, URINE (POC) - URINE CULTURE 2. Missed menses - ICD9: 626.4, ICD10: N92.6 LMP October 26 - UA DIP,URINE HCG (POC)-negative 3. Vaginal discharge - ICD9: 623.5, ICD10: N89.8 X 5 days Sexually active Declines pelvic exam Self swabs obtained Will await results to guide treatment. - DONIS/TRICHOMONAS NAAT - BACTERIAL VAGINOSIS NAAT - GONORRHEA/CHLAMYDIA NAAT Harriett Castillo APRN.KAREN [facility] NoteHNO ID: [id number] Author: TIM HAYES MD Service: ? Author Type: Physician Type: Progress Notes Filed: 09/07/2023 09:51 Note Text: Patient presents with: Headache: Bodyaches x3 days HPI: Feeling sick for 3 days. She was in the ER 3 days ago for constipation/abdominal pain and treated with Mag citrate and suppository. Positive symptoms: Body Aches, Malaise, Headache (throbbing, unsure of location, none this morning but did not have a headache initially yesterday morning either), Vomiting, Diarrhea, maybe cough but avoids because her body aches Negative symptoms: Sore throat, Nasal Congestion, Rhinorrhea, Fever, blood in vomit/stool, OTC: Tylenol MEDICATIONS: Current Outpatient Medications Medication Sig levothyroxine (SYNTHROID) 25 mcg tablet metFORMIN (GLUCOPHAGE) 500 mg tablet Take by mouth. lisinopril (ZESTRIL, PRINIVIL) 10 mg tablet Take 1 tablet by mouth once daily. lamoTRIgine (LAMICTAL) 200 mg tablet Take by mouth. busPIRone (BUSPAR) 10 mg tablet Take 1 tablet by mouth twice daily. Levonorgestrel-Ethinyl Estrad 0.1mg - 20mcg per tablet Take 1 tablet by mouth as directed. No current facility-administered medications for this visit. ALLERGIES: ALLERGIES Allergen Reactions Amoxicillin Hives Inderal [Propranolo* Hives VITALS: BP 132/70 Pulse 86 Temp 36.9 ?C (98.4 ?F) Resp 16 Wt 90.5 kg (199 lb 8.3 oz) LMP 02/23/2023 (Approximate) SpO2 97% BMI 34.25 kg/m? PHYSICAL EXAM: GEN: mildly ill appearing HEENT: PERRL, EOMI, conjunctiva clear Ears: canals clear. TMs without erythema, bulge, or effusion Sinuses: non-tender frontal sinus, non-tender maxillary sinuses Throat: moist mucous membranes, no erythema, no exudate Neck: supple, no thyromegaly, no lymphadenopathy HEART: regular rate and rhythm, no murmurs LUNGS: clear to auscultation, no wheezes or crackles, no increased WOB ABD: Soft, non-distended, generally uncomfortable but no focal tenderness, no masses ASSESSMENT/PLAN: 1. Viral syndrome - ICD9: 079.99, ICD10: B34.9 - suspect viral illness - Discussed supportive care treatment with rest, cold medicine, and analgesia. Tim Hayes [facility]05-27-2024 History of Present illness Narrative* Tim Hayes MD - 09/07/2023 9:34 AM EDT Patient presents with: Headache: Bodyaches x3 days HPI: Feeling sick for 3 days. She was in the ER 3 days ago for constipation/abdominal pain and treated with Mag citrate and suppository. Positive symptoms: Body Aches, Malaise, Headache (throbbing, unsure of location, none this morning but did not have a headache initially yesterday morning either), Vomiting, Diarrhea, maybe cough butavoids because her body aches Negative symptoms: Sore throat, Nasal Congestion, Rhinorrhea, Fever, blood in vomit/stool, OTC: Tylenol MEDICATIONS: Current Outpatient Medications Medication Sig levothyroxine (SYNTHROID) 25 mcg tablet metFORMIN (GLUCOPHAGE) 500 mg tablet Take by mouth. lisinopril (ZESTRIL, PRINIVIL) 10 mg tablet Take 1 tablet by mouth once daily. lamoTRIgine (LAMICTAL) 200 mg tablet Take by mouth. busPIRone (BUSPAR) 10 mg tablet Take 1 tablet by mouth twice daily. Levonorgestrel-Ethinyl Estrad 0.1mg - 20mcg per tablet Take 1 tablet by mouth as directed. No current facility-administered medications for this visit. ALLERGIES: ALLERGIES Allergen Reactions Amoxicillin Hives Inderal [Propranolo* Hives VITALS: BP 132/70 Pulse 86 Temp 36.9 C (98.4 F) Resp 16 Wt 90.5 kg (199 lb 8.3 oz) LMP 02/23/2023(Approximate) SpO2 97% BMI 34.25 kg/m PHYSICAL EXAM: GEN: mildly ill appearing HEENT: PERRL, EOMI, conjunctiva clear Ears: canals clear. TMs without erythema, bulge, or effusion Sinuses: non-tender frontal sinus, non-tender maxillary sinuses Throat: moist mucous membranes, no erythema, no exudate Neck: supple, no thyromegaly, no lymphadenopathy HEART: regular rate and rhythm, no murmurs LUNGS: clear to auscultation, no wheezes or crackles, no increased WOB ABD: Soft, non-distended, generally uncomfortable but no focal tenderness, no masses ASSESSMENT/PLAN: 1. Viral syndrome - ICD9: 079.99, ICD10: B34.9 - suspect viral illness - Discussed supportive care treatment with rest, cold medicine, and analgesia. Tim Hayes MD [facility] History of Present illness Narrative* Camille Hall PA-C - 03/17/2023 7:54 AM EST 03/17/2023 Patient presents with: Cough: Raspy throat, [...] anger Headache(784.0) 03/13/2011 History of drug use [facility] and marajuana IBS (irritable bowel syndrome) Left [...] application to affected area three times daily. (Patientnot taking: Reported on 01/28/2020 ) busPIRone (BUSPAR) [...] ROUTINE Camille Hall PA-C documented in this [facility]05-05-[address] Villafana [facility] August 15, 2022 10:04pm Note Date/Time August 15, 2022 8:45pm [facility] Medical Records Department [address] [place] [address] Emergency Department Summary 08/15/22 MR#: [id number] Acct: [id number] Name: GENET COBB Rep #:[id number] : 1995 27 From: Silvio Villafana MD PCP: Dr. Skyler Rodriges MD Status:R EG ER Location: ED HPI History of Present Illness Chief Complaint: Anxiety Informant: patient and parent (Mother) Onset/Context/Timing Onset: Today Context: Gradual Onset Timing: Continuous Narrative Narrative: Patient feeling anxious all day, gradual in onset no trigger, but this is typical for her according to her and her mother. Given this history, she takes haloperidol 5 mg prn for it, she took 1 dose today. She does not take this daily. She states she has taken maybe 60 doses in her life, over the past year or 2. She usually does not have any major issues with it, and she has not been taking it in the last couple days until she needed it today. It did not seem tohelp and she was feeling worse so she took one of her mom's gabapentin, she had no additional symptoms but is concerned that she feels poorly, jittery, and restless although she feels tired like she needs to go to bed she states she cannot because she feels so restless and just wants to sleep. She denies any suicidal ideation or other psychiatric symptoms. States she has taken her usualmedications, no drugs, no other ehke-vaa-usahjgp medications at all. [facility] Medical History Anxiety Chronic vomiting Depression Diabetes Diabetes Gastric reflux Gastric ulcer GERD (gastroesophageal reflux disease) History of echocardiogram History of pneumonia History of ulceration Hypertension Marijuana use Morbid obesity Shortness of breath on exertion Smoker Tobacco abuse Type 2 diabetes mellitus Ulcer Wears glasses Home Medications lamotrigine 200 mg tablet (Lamictal) 150 mg PO BID 12/05/20 [History Last Taken Unknown] blood sugar diagnostic (Scrip-tuch Ultra Test strips) #100 ea 08/19/21 [Rx Last Taken Unknown] blood-glucose meter ([employer] Ultra2 Meter) #1 ea 08/19/21 [Rx Last Taken Unknown] lancets (HubkickTouch UltraSoft Lancets) #100 ea 08/19/21 [Rx Last Taken Unknown] haloperidol 5 mg tablet 5 mg PO PRN PRN Anxiety 04/09/22 [History Last Taken Unknown] lisinopril 10 mg tablet 10 mg PO DAILY #90 tabs 04/21/22 [Rx Last Taken Unknown] metformin 500 mg tablet 500 mg PO BID #180 tabs 04/24/22 [Rx Last Taken Unknown] omeprazole 40 mg capsule,delayed release 40 mg PO DAILY #90 caps 07/02/22 [Rx Last Taken Unknown] colestipol 1 gram tablet 1 g PO QHS bile reflux #90 tabs 07/11/22 [Rx Last Taken Unknown] Allergy/AdvReac Type Severity Reaction Status Date / Time amoxicillin [Amoxicillin] Allergy Hives Verified 08/15/22 20:24 propranolol HCl Allergy Hives Verified 08/15/22 20:24 [From Inderal [place]] Family History Unknown Diabetes Multiple sclerosis cousin Mother Diabetes Hypertension Grandmother Diabetes Hypertension Aunt Multiple sclerosis Surgical History History of cholecystectomy Hx of colonoscopy Social History Smoking Status: Current every day smoker tobacco type: cigarettes Tobacco: How many years used: 7 alcohol intake: never substance use type: former substance user Date of last use: 04/16/2020, marijuanaand methamphetamine caffeine: Yes what type of physical activity do you participate in: walking seatbelt use: always do you feel safe at home: Yes additional social history: unemployed ROS ROS ED Constitutional Constitutional ED: Reports fatigue; Denies chills or fever(s) Eyes Eyes: Denies change in vision or diplopia ENT ENT ED: Denies rhinorrhea or sore throat Cardiovascular Cardiovascular: Denies chest pain or palpitations Respiratory/Chest Respiratory/Chest: Denies cough or dyspnea Gastrointestinal Gastrointestinal: Denies abdominal pain, diarrhea, nausea or vomiting Genitourinary Genitourinary ED: Denies dysuria or hematuria Musculoskeletal Musculoskeletal: Denies back pain or neck pain Integumentary Denies abscess or rash Neurologic Neurologic: Reports other Details: Restlessness ; Denies headache(s), paresthesias or weakness Psychiatric Psychiatric: Reports anxiety; Denies suicidal thoughts EXAM Physical Exam Const Vital Signs: 08/15/22 20:24 Temperature 96.7 F L Temperature Source Temporal Pulse Rate 108 H Respiratory Rate 18 Blood Pressure 188/164 H Blood Pressure Mean 172 Pulse Ox 100 Oxygen Delivery Method Room Air Positive well nourished and well developed General Appearance ED: well developed and NAD HEENT Reports moist mucous membranes normocephalic and atraumatic Eyes PERRL and EOMs intact bilaterally Neck full ROM and supple Resp normal respiratory effort and clear to auscultation bilaterally Cardio regular rate, regular rhythm and no murmurs GI non-tender and non-distended Auscultation: normoactive bowel sounds Palpation: soft Back/Spine no CVA tenderness General Back: other FROM Extremity normal to inspection General Extremety ED: Negative for edema, pulses abnormal or tenderness General Extremity: Negative for edema or pulses abnormal Neuro oriented x3, CN's II-XII intact bilaterally and no sensory deficits noted Sensorium / Orientation: awake and alert Motor Exam: strength 5/5 throughout Psych Psych Narrative: Thought processes normal. Anxious and tearful at times. A little restless, butcooperative. Skin no rashes or lesions noted and no wounds MDM MDM MDM Narrative Medical decision making narrative: Patient is having anxiety, possibly some akathisia although her symptoms are fairly nonspecific. Given that she is also hypertensive, mildly tachycardic, and having nonspecific symptoms, I obtained a TSH in addition to basic labs. Your TSH was normal just over a year ago, but today it is high at almost 9. On reexamination prior to any treatment, she said that she was actually feeling much better just resting here in the emergency department. I had ordered Ativanin addition to Cogentin IV, considering the possibility that she was having someakathisia from the haloperidol although this is less likely since she has taken it on occasion and never had the symptoms before with. She did get the medications and felt better still. I am comfortable with her going home. To decipher the significance of the TSH, I am going to add free T4 and T3 and have her follow-up with her doctor, I do not think she is having acute symptoms of hypothyroidism, so I will hold off on starting her on any long-term medications until she follows up which we discussed and she is comfortable with that. She does not have severe fatigue, cold intolerance, or severe constipation, she doeshave a history of irritable bowel syndrome and is constipated often due to that. When she was feeling better I did have nursing recheck her vital signs, her heart rate is 64 and blood pressure is 126/82, reassuring that her abnormal vital signs were likely a result of her anxiety, and not causing her symptoms. Lab Data Attestation: I reviewed the patient's lab results. Labs: Laboratory Results - last 24 hr 08/15/22 08/15/22 20:56 20:56 WBC 13.1 H RBC 5.02 Hgb 14.5 Hct 44.1 MCV 87.8 MCH 28.9 MCHC 32.9 RDW Std Deviation 43.8 RDW Coeff of Anila 13.7 Plt Count 374 MPV 9.6 Immature Gran % (Auto) 0.400 Neut % (Auto) 53.0 Lymph % (Auto) 31.8 [place] % (Auto) 7.1 Eos % (Auto) 6.9 H Baso % (Auto) 0.8 Absolute Neuts (auto) 7.0 Absolute Lymphs (auto) 4.16 Nucleated RBC % 0 Sodium 138 Potassium 3.6 Chloride 104 Carbon Dioxide 25.0 Anion Gap 9 BUN 9 Creatinine 0.97 Estim Creat Clear Calc 72.70 Est GFR (MDRD) Af Amer 89 Est GFR (MDRD) Non-Af 74 BUN/Creatinine Ratio 9.3 L Glucose 115 H Calcium 9.2 TSH 8.93 H Discharge Plan Triage Chief Complaint: Anxiety ED Provider: Silvio Villafana Dx/Rx/DC Orders Clinical Impression: Anxiety, Akathisia, Elevated TSH, Episode of hypertension Instructions: Diagnosing a Thyroid Problem, ED Anxiety Reaction Prescriptions: No Action lamotrigine [Lamictal] 200 mg tablet 150 mg PO BID omeprazole 40 mg capsule,delayed release(DR/EC) 40 mg PO DAILY Qty: 90 2RF Rx Instructions: Take 30 minutes before breakfast colestipol 1 gram tablet 1 g PO QHS Qty: 90 1RF Rx Instructions: wait at least one hour after other meds to take this haloperidol 5 mg tablet 5 mg PO PRN PRN (Reason: Anxiety) (DME) blood-glucose meter [OneTouch Ultra2 Meter] Mis See Rx Instructions .ROUTE .MEDSUPPLY Qty: 1 0RF Rx Instructions: Check blood sugar daily (DME) OneTouch Ultra Test Strip See Rx Instructions .ROUTE .MEDSUPPLY Qty: 100 3RF Rx Instructions: Check blood sugar daily (DME) lancets [OneTouch UltraSoft Lancets] Misc See Rx Instructions .ROUTE .MEDSUPPLY Qty: 100 3RF Rx Instructions: Check blood sugar daily lisinopril 10 mg tablet 10 mg PO DAILY Qty: 90 1RF metformin 500 mg tablet 500 mg PO BID Qty: 180 1RF Primary Care Provider: Skyler Rodriges Referrals: Skyler Rodriges MD [Primary Care Provider] - As soon as possible Disposition Disposition: Home, Self Care What to do if you have Problems For any increased pain, shortness of breath, bleeding, nausea or vomiting, chestpain, or any unexpected problems, contact your Primary Care Provider. Call [facility] ([phone]) or report to the closest Emergency Room. Call 911 if necessary. 08/15/222203 <Electronically signed by Silvio Villafana MD> Cosigner Signature (if applicable): CC: Dr. Skyler Rodriges MD ~ Signed [facility] Work Phone: [phone] 354-121512-19-2022 Hospital Discharge instructions Patient Education 03/31/2022 12:32:07 [...] medicine that can help reduce how severe theillness is and how long it lasts (antiviral medicine). This may be given by mouth (orally) or through an IV. Taking care of yourself at home can help relieve symptoms. Your health care provider may recommend: Taking tguc-ynj-wustrgv medicines. Drinking plenty of fluids. In many [...] able. Clear fluids include water, ice chips, dilutedfruit juice, and low-calorie sports drinks. Eat bland, vwcs-vc-vutwvy foods in small amounts as you are able. These foods include bananas, applesauce, rice, lean meats, toast, and crackers. Avoid drinking fluids that contain a lot of sugar or caffeine, such as energy drinks, regular sports drinks, and soda. Avoid alcohol. Avoid spicy or fatty foods. General instructions Take enhq-hpp-gjysuzj and prescription medicines only as told by [...] water are not available, use alcohol-based hand compensation consultant. Keep all follow-up visits as told by [...] 03/27/2001 Document Revised: 06/30/2019 Document Reviewed: 09/15/2018 [employer] Patient Education 2020 [employer]. 03/31/2022 12:31:59 Community-Acquired Pneumonia, Adult Community-Acquired Pneumonia, [...] This is done if you are not breathingwell on your own and you cannot maintain a safe blood oxygen level. Thoracentesis. This is a procedure to remove fluid from around one lung or both lungs to help you breathe better. Follow these instructions at home: Medicines Take jeqq-kso-mfnabph and prescription medicines only as told by your health care provider. ?Only take cough medicine if you are losing sleep. Be aware that cough medicine can prevent your body's natural ability to remove mucus from your lungs. If you were prescribed an antibiotic medicine, take it as told by your health care provider. Do notstop taking the antibiotic even if you start [...] contain nicotine or tobacco, such as cigarettes, e- cigarettes, and chewing tobacco. If you need help [...] are undergoing cancer treatment, have chronic lung disease,or have other medical conditions that affect your immune system. Ask your health care provider if this applies to you. Getting an influenza vaccine every year. Ask your health care provider which type of vaccine is best for you. Getting regular checkups from your dentist. Washing your hands often. If soap and water are not available, use hand compensation consultant. Contact a health care provider if: You [...] been in the hospital. It can be causedby bacteria, viruses, or fungi. This condition may [...] 03/30/2006 Document Revised: 11/25/2018 Document Reviewed: 11/25/2018 [employer] Patient Education 2020 Vator. 03/28/2022 18:00:35 Pneumonia (Adult) Pneumonia (Adult) Pneumonia [...] is ill with a fever. It may causesevere liver damage. Your appetite may be poor, [...] cough up the phlegm (sputum). If you alsohave heart or kidney disease, check with your [...] neck Chest pain not caused by coughing [id number] [employer]. [address] [place] [address]22. All rights reserved. This information is not intended as a substitute for professional medical care. Always follow yourhealthcare professional's instructions. Follow Up Care 03/28/2022 15:37:45 With:KRANTHI HARRIS MD Address: [address], [place] [address]- When:2-4 days Comments:Please call to schedule your post-hospital follow-up appointment. [facility] 12-19-2022 Note Discharge Instructions Thank you for allowing [facility] to assist you with your healthcare needs. The following is importantdischarge information regarding your hospital visit. Your Care Team [facility] Medicine Your Diagnosis Pneumonia Influenza A Shortness [...] Please follow-up with your PCP in the nextweek for a post-hospital follow-up. Please return to the ED with any sudden or severe shortness of breath or chest pain. Follow Up Appointments Follow Up with KRANTHI HARRIS MD When Within 2-4 days Why: Please call to schedule your post-hospital follow-up appointment. Where: [address] [facility] [place] [phone]- The Following Activity and Diet Have Been [...] and or supplements as they may interact withyour home medications. What How Much When Instructions Last Dose New albuterol (albuterol MDI (90 mcg/ inh) CFC free inhalation aerosol) 1 puff(s) by inhalation Every 4 hours as needed for as needed for wheezing Pickup at [facility] #[id number] New cefdinir (cefdinir 300 mg oral capsule) 1 cap by mouth Every 12 hours Duration: 7 Days Pickup at [facility] #[id number] start 03/31 in the evening New oseltamivir (Tamiflu 75 mg oral capsule) 1 cap by mouth Two (2) times a day Pickup at [facility] #[id number] 03/31 @ 9am Unchanged haloperidol (haloperidol 0.5 [...] TAKE 2 TABLETS ONCE DAILY FOR 3 DAYS,THEN TAKE 1 TABLET ONCE DAILY FOR 3 DAYS 03/31 @ 9am Pharmacy Information [facility] #[id number]: [address] [place], [place] [id number] [phone] Please take this list to your next doctor s visit. Bring all medications you take, including over the counter medications, herbals and other supplements with you to your doctor s visit. Patients and families are reminded to discard old lists and to update any records with all medication providers or retail pharmacies. Medication Leaflets cefdinir (LIZA roland) Omnicef, Omnicef Omni-Pac What is the most [...] feet or ankles, feeling tired or short ofbreath. Common side effects may include: nausea, vomiting, stomach pain, diarrhea; vaginal itching or discharge; headache; or rash (including diaper rash in an taking liquid cefdinir. This is not a complete list of side effects and others may occur. Call your doctor for medical advice about side effects. You may report side effects to FDA at 5-244-CKJ-9084. What other drugs will affect cefdinir? Tell your doctor about all your other medicines, especially: probenecid; or vitamin or mineral supplements that contain iron. This list is not complete. Other drugs may affect cefdinir, including prescription and kbmm-ylq-uhpujhs medicines, vitamins, and herbal products. Not all [...] to ensure that the information provided by [employer]. ('Multum') is accurate, up-to-date, and complete, but no guarantee is made to that effect. Drug information contained herein may be time sensitive. amiando information has been compiled for use by healthcare practitioners and consumers in the [place] and therefore amiando does not warrant that uses outside of the [place] are appropriate, unless specifically indicated otherwise. WhoisEDIs drug information does not endorse drugs, diagnose patients or recommend therapy. WhoisEDIs drug information isan informational resource designed to assist licensed healthcare practitioners in caring for their p atients and/or to serve consumers viewing this service as a supplement to, and not a substitute for, the expertise, skill, knowledge and judgment of healthcare practitioners. The absence of a warningfor a given drug or drug combination in no way should be construed to indicate that the drug or drug combination is safe, effective or appropriate for any given patient. amiando does not assume any responsibility for any aspect of healthcare administered with the aid of information amiando provides. The information contained herein is not intended to cover all possible uses, directions, precautions, warnings, drug interactions, allergic reactions, or adverse effects. If you have questions about the drugs you are taking, check with your doctor, nurse or pharmacist. Copyright 8947-5586 [employer]. Version: 7.03. Revision Date: 04/16/2020. oseltamivir (os [...] this medicine has any signs of unusual thoughtsor behavior. What is oseltamivir? Oseltamivir is an antiviral medication that blocks the actions of influenza virus types A and B in your body. Oseltamivir is used to treat flu symptoms caused by influenza virus in people who have had symptomsfor less than 2 days. Oseltamivir may also [...] younger than 2 weeks old. Children as youngas 1 year old may use zanamivir to [...] your next dose is due in less than2 hours. Do not use two doses at [...] may report side effects to FDA at 7-927-OSD-3556. What other drugs will affect oseltamivir? Other drugs may affect oseltamivir, including prescription and wzuk-xkb-muhjpkw medicines, vitamins, and herbal products. Tell your [...] to ensure that the information provided by [employer]. ('Multum') is accurate, up-to-date, and complete, but no guarantee is made to that effect. Drug information contained herein may be time sensitive. amiando information has been compiled for use by healthcare practitioners and consumers in the [place] and therefore amiando does not warrant that uses outside of the [place] are appropriate, unless specifically indicated otherwise. WhoisEDIs drug information does not endorse drugs, diagnose patients or recommend therapy. WhoisEDIs drug information isan informational resource designed to assist licensed healthcare practitioners in caring for their p atients and/or to serve consumers viewing this service as a supplement to, and not a substitute for, the expertise, skill, knowledge and judgment of healthcare practitioners. The absence of a warningfor a given drug or drug combination in no way should be construed to indicate that the drug or drug combination is safe, effective or appropriate for any given patient. amiando does not assume any responsibility for any aspect of healthcare administered with the aid of information amiando provides. The information contained herein is not intended to cover all possible uses, directions, precautions, warnings, drug interactions, allergic reactions, or adverse effects. If you have questions about the drugs you are taking, check with your doctor, nurse or pharmacist. Copyright 2044-0696 [employer]. Version: 12.. Revision Date: 01/05/2018. Education Materials [...] medicine that can help reduce how severe theillness is and how long it lasts (antiviral medicine). This may be given by mouth (orally) or through an IV. Taking care of yourself at home can help relieve symptoms. Your health care provider may recommend: Taking keci-fua-hlonbxj medicines. Drinking plenty of fluids. In many [...] able. Clear fluids include water, ice chips, dilutedfruit juice, and low-calorie sports drinks. Eat bland, cmmo-oc-khvwuc foods in small amounts as you are able. These foods include bananas, applesauce, rice, lean meats, toast, and crackers. Avoid drinking fluids that contain a lot of sugar or caffeine, such as energy drinks, regular sports drinks, and soda. Avoid alcohol. Avoid spicy or fatty foods. General instructions Take jwsl-zgh-zwdlkxi and prescription medicines only as told by [...] water are not available, use alcohol-based hand compensation consultant. Keep all follow-up visits as told by [...] 03/27/2001 Document Revised: 06/30/2019 Document Reviewed: 09/15/2018 [employer] Patient Education 2020 Vator. Community-Acquired Pneumonia, Adult Pneumonia is a type [...] This is done if you are not breathingwell on your own and you cannot maintain a safe blood oxygen level. Thoracentesis. This is a procedure to remove fluid from around one lung or both lungs to help you breathe better. Follow these instructions at home: Medicines Take zzms-jtz-emeemez and prescription medicines only as told by your health care provider. ? Only take cough medicine if you are losing sleep. Be aware that cough medicine can prevent your body's natural ability to remove mucus from your lungs. If you were prescribed an antibiotic medicine, take it as told by your health care provider. Do notstop taking the antibiotic even if you start [...] contain nicotine or tobacco, such as cigarettes, e- cigarettes, and chewing tobacco. If you need help [...] and water are not available, use hand compensation consultant. Contact a health care provider if: You [...] been in the hospital. It can be causedby bacteria, viruses, or fungi. This condition may [...] 03/30/2006 Document Revised: 11/25/2018 Document Reviewed: 11/25/2018 [employer]ess Patient Education 2020 [employer]. Pneumonia (Adult) Pneumonia is an infection deep [...] is ill with a fever. It may causesevere liver damage. Your appetite may be poor, [...] cough up the phlegm (sputum). If you alsohave heart or kidney disease, check with your [...] neck Chest pain not caused by coughing [id number] [employer]. [address] [place] [address], [place] [address]. All rights reserved. This information is not intended as a substitute for professional medical care. Always follow yourhealthcare professional's instructions. Additional Information VACCINATE! IT SAVES LIVES! Members of the community who have not yet received the COVID-19 vaccine and would like to receive it can visit one of [facility] vaccine clinics. There are many vaccine clinic locations within the [facility]. For locations and available times, please visit https://[email or web address].[place].gov/. It is important to note that some COVID mobile vaccine clinics are held outdoors and may be canceled in rainy or stormy conditions. To learn more about pediatric vaccinations (ages 5-11), we invite you to visit the [facility] webpage. https://www.[facility].org/pages/7024-Viruw-Uxxmmkfmqgr-Mkledqgdsh-Qarwk-Lrp stions.htmlTo learn more about the COVID-19 vaccine, we invite you to visit the [employer] website for a list of frequently asked questions. [email or web address] Noodle/[email or web address]-[email or web address]-Xhvjxqyf/znabc-Cwpfvhk-Reuklvafyr _[email or web address]-Questions.pdf [facility] Patient Portal Access Instructions: Stay connected with your healthcare team and access your personal medical information anytime with the [facility] Patient Portal.If you would like a full copy of your medical records, please contact the [facility] Medical Records Department, Thursday through Thursday between 8a.m. and 4:30p.m. Please follow the directions below to access the portal: 1.Access the email account you provided upon registration to the hospital.2.Look for an invitation email from [facility].3.Open the email and access the invitation link: Accept Invitation to [facility]4.Fill in the required campuzano to create your account. Sign into www.Insurance Noodle with your username and password that you [...] you will allow to register on the [facility] Patient Portal for access to your information. You can also access the [facility] Patient Portal on the D2S joyce. Simply click on Health Records under Unveil and then click on the [employer] logo. HOW TO SAFELY DISPOSE OF PRESCRIPTION MEDICATIONS Please use one of the following methods to safely dispose of your unused medications. 1.Use a drug disposal kit: the drug disposal pouch allows you to safely discard your old and unuseddrugs. Ask your nurse to give you one when you are discharged.2.Visit a local take-back location: Many local pharmacies and police departments have programs that collect old and unwanted prescriptiondrugs. Call your local pharmacy or go to http://Blackberry.Movigo/7U0Kw8v to find one close to you.3.Make use of household items: Use cat litter or old coffee grounds to dispose medications if other options arenot available. Mix your drugs with these household products, seal them in an airtight container andthrow it into the garbage. Call [facility]: [phone] to be sure your drugs can be [...] been reviewed and explained to me and IREZA SHIANNA R understand my current condition and have read and understand these discharge instructions. I have received a written copy of the plan/instructions. If I have questions, I am aware that I should contactmy doctor. 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 Harris Rodriguez RN Digitally Signed by LAVELLE Rodriguez on 03/31/2022 06:20 AM [facility]12-18-2022 Note ORIGINAL EXAMINATION: CTA OF THE CHEST03/30/2022 [...] 03/30/2022 12:05:01 PM Ordering Provider: MAHENDRA FAJARDO [facility]12-18-2022 Note ORIGINAL EXAMINATION: CTA OF THE CHEST03/30/2022 [...] Date: 03/30/2022 12:05:01 PM [facility] Date of Service 03/30/2022 Chief Complaint Shortness of breath Subjective Patient seen and evaluated while resting in bed. She states that she is actually feeling a little better this morning. She appears to be in no acute distress. Discussed with patient the fact that herheart rate increases with any activity and the [...] her to a bigger room after CT asthis may help her mental health more. Patient [...] Result Date: March 28, 2022 Verified By: HUMZA SOUZA MD CLINICAL STATEMENT: IMPRESSION: Mild right [...] by MAHENDRA FAJARDO on 03/30/2022 12:22 PM [facility]12-18-2022 Nurse Progress note Patient refusing to have morning labs drawn on 03/30/22. ZEE VALDERRAMA Digitally Signed by LAVELLE Rodriguez on 03/30/2022 05:06 AM [facility]12-17-2022 Note. MICRO - Microbiology PROCEDURE: Streptococcus Pneumoniae Urine [...] Locations *1: This test was performed at: [address], [facility] , [facility]03-29-2022 Note. MICRO - Microbiology PROCEDURE: Legionella Urine Ag [...] Locations *1: This test was performed at: [address], [facility] , [facility]03-29-2022 Evaluation + Plan noteExtracted from: Title:History and Physical Author:MAHENDRA FAJARDO APRN-FABRIC 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 Date:03/29/22 1. Pneumonia Acute, new onset *Continue Ceftriaxone [...] case was discussed with collaborating physician, Dr. German Gaffney. [facility] 12-17-2022 Note Date of Service 03/29/2022 Chief Complaint Presents with shortness of breath for the past couple of days History of Present Illness Patient is a 27-year-old female, who follows with Dr. Kranthi Harris with a past medical history significant for bipolar disorder, anxiety, depression and obesity, [facility]. Patient states that she developed shortness of breath a few days ago and presented to the urgent care in [place]. She was checkedfor viruses and states she [...] Result Date: March 28, 2022 Verified By: HUMZA SOUZA MD CLINICAL STATEMENT: IMPRESSION: Mild right [...] case was discussed with collaborating physician, Dr. German Gaffney. Problem List/Past Medical History Ongoing Anxiety [...] by MAHENDRA FAJARDO on 03/29/2022 12:48 PM [facility]12-16-2022 SARS-CoV-2 (COVID-19) RNA LAWSON+probe Ql (Nph)Negative *NA* (03/28/22 6:16 PM)AO Auto Urine [id number] Note ORIGINAL EXAMINATION: ONE XRAY VIEW OF THE CHEST 03/28/2022 4:47 pm COMPARISON: None. HISTORY: ORDERING SYSTEM PROVIDED HISTORY: Reason for Exam: SOB/cough/fever FINDINGS: The cardiomediastinal silhouette is normal. No pleural effusion, vascular congestion, or pneumothorax. Mild right upper lung airspace disease. IMPRESSION: Mild right upper lung airspace disease concerning for pneumonia with the provided symptomatology. Follow-up to resolution recommended. Interpreted by: Humza Souza MD Preliminary Report By: Humza Souza MD Electronically signed By Humza Souza MD Dictated Date: 03/28/2022 4:51:17 PM Prelim Date: 03/28/2022 4:52:18 PM Sign Date: 03/28/2022 4:52:18 PM Ordering Provider: BIBIANA WARNER [facility]12-16-2022 Note ORIGINAL EXAMINATION: ONE XRAY VIEW OF THE CHEST 03/28/2022 4:47 pm COMPARISON: None. HISTORY: ORDERING SYSTEM PROVIDED HISTORY: Reason for Exam: SOB/cough/fever FINDINGS: The cardiomediastinal silhouette is normal. No pleural effusion, vascular congestion, or pneumothorax. Mild right upper lung airspace disease. IMPRESSION: Mild right upper lung airspace disease concerning for pneumonia with the provided symptomatology. Follow-up to resolution recommended. Interpreted by: Humza Souza MD Preliminary Report By: Humza Souza MD Electronically signed By Humza Souza MD Dictated Date: 03/28/2022 4:51:17 PM Prelim Date: 03/28/2022 4:52:18 PM Sign Date: 03/28/2022 4:52:18 PM Ordering Provider: [facility]09-15-2022 Note Pap Smear Specimen AdequacySeptember 2021 2:30pmComment.Satisfactory for evaluation. Endocervical and/or squamous metaplasticcells (endocervical component)are present.[facility] A#[id number] Work Phone: Comment on above:Satisfactory for evaluation. Endocervical and/or squamous metaplasticcells (endocervical component)are present.12-26-2021 NotePap Smear Specimen AdequacySeptember 2021 2:30pm Comment.Satisfactory for evaluation. Endocervical and/or squamous metaplasticcells (endocervical component)are present.[facility] A#[id number] Work Phone: Comdija on above:Satisfactory for evaluation. Endocervical and/or squamous metaplasticcells (endocervical component)are present.12-26-2021 NotePap Smear Specimen AdequacySeptember 2021 2:30pm Comment.Satisfactory for evaluation. Endocervical and/or squamous metaplasticcells (endocervical component)are present.[facility] A#[id number] Work Phone: Comment on above:Satisfactory for evaluation. Endocervical and/or squamous metaplasticcells (endocervical component)are present.10-01-2021 History of Present illness Narrative* Issac Parmar APRN.FABRIC 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 - 10/01/2021 3:59 PM EDT Subjective HPI [...] Vision loss - ICD9: 369.9, ICD10: H54.7 Issca Parmar APRN.FABRIC 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 [facility] of Past illness Narrative* Problem Noted Date Resolved Date Elevated blood pressure 01/07/2011 08/21/19 12 documented as of this encounter (statuses as of 10/01/2021) [facility] History of Past illness Narrative* Problem Noted Date Diagnosed Date Resolved Date Elevated blood pressure 01/07/201108/11 documented as of this encounter (statuses as of 03/17/2023) [facility] Diagnosis Onset Date Resolution Status Menorrhagia acute History of drug dependence/abuse chronic Hypertension chronic Morbid obesity chronic Tobacco abuse acute Type 2 diabetes mellitus acu te Bipolar disorder chronic Hypertension chronic [facility] Work Phone: Evaluation note* Diagnosis Headache, unspecified headache type- Primary Vision loss Unspecified visual loss [facility] Diagnosis Onset Date Resolution Status Gastric ulcer chronic Type 2 diabetes mellitus chr onic Chronic vomiting chronic Gastric ulcer chronic Hypertension chronic Type 2 diabetes mellitus chr onic Abnormal uterine bleeding ac [employer] Encounter for well woman exam with abnormal findings acute [facility] Work Phone: Evaluation note* Diagnosis Onset Date Resolution Status Chronic vomiting chronic Gastric ulcer chronic Hypertension chronic Type 2 diabetes mellitus chr onic Abnormal uterine bleeding ac [employer] Encounter for well woman exam with abnormal findings acute Abnormal uterine bleeding ac [employer] Menorrhagia acute Abnormal uterine bleeding ac [employer] Menorrhagia acute Abdominal tenderness acute Blood per rectum acute Early satiety acute Irritable bowel syndrome with alternating bowel habits acute Chronic vomiting chronic [facility] Work Phone: Evaluation note* Diagnosis Onset Date Resolution Status Chronic vomiting chronic Gastric ulcer chronic Hypertension chronic Type 2 diabetes mellitus chr onic Abnormal uterine bleeding ac [employer] Encounter for well woman exam with abnormal findings acute Abnormal uterine bleeding ac [employer] Menorrhagia acute Abnormal uterine bleeding ac [employer] Menorrhagia acute Abdominal tenderness acute Blood per rectum acute Early satiety acute Irritable bowel syndrome with alternating bowel habits acute Chronic vomiting chronic History of pneumonia acute Hypertension chronic Type 2 diabetes mellitus [facility] Work Phone: Evaluation note* Diagnosis Onset Date Resolution Status GERD (gastroesophageal reflux disease) chronic Hypertension chronic Morbid obesity chronic Type 2 diabetes mellitus chr onic Bile reflux gastritis chroni c GERD (gastroesophageal reflux disease) chronic Irritable bowel syndrome with alternating bowel habits [facility] Work Phone: Evaluation note* Diagnosis Onset Date Resolution Status GERD (gastroesophageal reflux disease) chronic Hypertension chronic Morbid obesity chronic Type 2 diabetes mellitus chr onic Bile reflux gastritis chroni c GERD (gastroesophageal reflux disease) chronic Irritable bowel syndrome with alternating bowel habits chronic Hypothyroidism chronic Diarrhea chronic LUQ abdominal pain chronic Nausea & vomiting chronic Subclinical hypothyroidism a cute GERD (gastroesophageal reflux disease) chronic Hypertension chronic Type 2 diabetes mellitus [facility] Work Phone: Evaluation note* Diagnosis Acute cough- Primary [facility] Diagnosis Onset Date Resolution Status GERD (gastroesophageal reflux disease) chronic Hypertension chronic Type 2 diabetes mellitus chr onic Diarrhea chronic Forgetfulness chronic LUQ abdominal pain chronic Nausea & vomiting [facility] Work Phone: Evaluation note* Diagnosis Viral syndrome- Primary Unspecified viral infection, in conditions classified elsewhere and of unspecified site [facility] Diagnosis Urinary frequency- Primary Missed menses Absence of menstruation Vaginal discharge Leukorrhea, not specified as infective [facility] Diagnosis Wrist pain, right- Primary Pain in joint, forearm Hand pain, right Pain in limb Wrist pain, right Pain in joint, forearm Hand pain, right Pain in limb [facility]* Diagnosis Wrist pain, right Pain in joint, forearm Hand pain, right Pain in limb [facility] Diagnosis URI, acute- Primary Acute upper respiratory infections of unspecified site Acute cough URI, acute Acute upper respiratory infections of unspecified site Acute cough [facility]* Diagnosis URI, acute Acute upper respiratory infections of unspecified site Acute cough [facility] Diagnosis Lower respiratory tract infection- Primary Other diseases of respiratory system, not elsewhere classified [facility] Diagnosis Skin infection- Primary Unspecified local infection of skin and subcutaneous tissue [facility] Diagnosis Pain, dental- Primary Unspecified disorder of the teeth and supporting structures [facility] Diagnosis Urinary frequency- Primary Vaginal discharge Leukorrhea, not specified as infective [facility] N[facility] No data available for this section [facility] Reason for referral (narrative)* Diagnostic Procedure Only (Urgent) - Closed Specialty Diagnoses / Procedures Referred By Contac t Referred To Contact XR IMAGING Diagnoses Hand pain, right Procedures XR HAND GENERAL 3V PA/LAT/OBL RIGHT RADEX HAND MINIMUM 3 VIEWS Harriett Castillo APRN.FABRIC 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 [address] [id number] [place] [address] Referral ID Status Reason Start Date Expiration Date V isits Requested Visits Authorized [id number] Closed Auto-Generate d Referral 01/25/2024 02/23/2025 1 1 * Diagnostic Procedure Only (Urgent) - Closed Specialty Diagnoses / Procedures Referred By Contac t Referred To Contact XR IMAGING Diagnoses Wrist pain, right Procedures XR FOREARM GENERAL 2V AP/LAT RIGHT RADEX FOREARM 2 VIEWS Harriett Castillo APRN.CNP [address] [place] [address] [place] [address] Referral ID Status Reason Start Date Expiration Date V isits Requested Visits Authorized [id number] Closed Auto-Generate d Referral 01/25/2024 02/23/2025 1 1 [facility] for referral (narrative)* Diagnostic Procedure Only (Urgent) - Closed Specialty Diagnoses / Procedures Referred By Contac t Referred To Contact XR IMAGING Diagnoses Hand pain, right Procedures XR HAND GENERAL 3V PA/LAT/OBL RIGHT RADEX HAND MINIMUM 3 VIEWS Harriett Castillo APRN.FABRIC 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 [address] [place] [address] [place] [address] Referral ID Status Reason Start Date Expiration Date V isits Requested Visits Authorized [id number] Closed Auto-Generate d Referral 01/25/2024 02/23/2025 1 1 * Diagnostic Procedure Only (Urgent) - Closed Specialty Diagnoses / Procedures Referred By Contac t Referred To Contact XR IMAGING Diagnoses Wrist pain, right Procedures XR FOREARM GENERAL 2V AP/LAT RIGHT RADEX FOREARM 2 VIEWS Harriett Castillo APRN.FABRIC 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 [address] [place] [address] [place] [address] Referral ID Status Reason Start Date Expiration Date V isits Requested Visits Authorized [id number] Closed Auto-Generate d Referral 01/25/2024 02/23/2025 1 1 [facility] for referral (narrative)No reason for [facility] Reason for visit Narrative* Diagnostic Procedure Only (Urgent) - Closed Specialty Diagnoses / Procedures Referred By Contac t Referred To Contact XR IMAGING Diagnoses Hand pain, right Procedures XR HAND GENERAL 3V PA/LAT/OBL RIGHT RADEX HAND MINIMUM 3 VIEWS Harriett Castillo APRN.FABRIC 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 [address] [place] [address] [place] [address] Referral ID Status Reason Start Date Expiration Date V isits Requested Visits Authorized [id number] Closed Auto-Generate d Referral 01/25/2024 02/23/2025 1 1 [facility] Summary Purpose Family History No Family History Records Found Relationship Condition Age at Onset Recorded Date/T karis Not Specified Diabetes mellitus Unknown Multiple sclerosis Unknown mother Diabetes mellitus Unknown Hypertension Unknown grandmother Diabetes mellitus Unknown aunt Multiple sclerosis Unknown Relationship Condition Age at Onset Recorded Date/T karis unrelated friend Diabetes mellitus Unknown Multiple sclerosis Unknown mother Diabetes mellitus Unknown Hypertension Unknown grandmother Diabetes mellitus Unknown aunt Multiple sclerosis Unknown Advance Directives No Advanced Directives Records Found Advance Directive Response Recorded Date/ Time Advance Directives No December 05, 2020 11:02am Living Will No February 22, 2 021 9:14pm Power of Cloth Winder Machine Operator No February 22, 2021 9:14pm Documents on File Type Date Recorded Patient Universal Grinder Operator Expl anation Advance Directive(s) 07/04/2015 8:35 AM Advance Directive Response Recorded Date/ Time Advance Directives No December 05, 2020 11:02am Living Will No October 01, 2021 4:33pm Power of Cloth Winder Machine Operator No October 01 4:33pm Advance Directive Response Recorded Date/ Time Advance Directives No December 05, 2020 10:02am Living Will No October 01, 2021 3:33pm Power of Cloth Winder Machine Operator No October 01 3:33pm Advance Directive Response Recorded Date/ Time Advance Directives No December 05, 2020 10:02am Living Will No April 09, 2 022 11:03am Power of Cloth Winder Machine Operator No April 09, 2022 11:03am Advance Directive Response Recorded Date/ Time Advance Directives No December 05, 2020 11:02am Living Will No August 15, 2022 9: 37pm Power of Cloth Winder Machine Operator No August 15, 2022 9:37pm Advance Directive Response Recorded Date/ Time Advance Directives No December 05, 2020 10:02am Living Will No August 15, 2022 8: 37pm Power of Cloth Winder Machine Operator No August 15, 2022 8:37pm Advance Directive Response Recorded Date/ Time Living Will No December 07 9:29pm Do you have a Healthcare Power of Cloth Winder Machine Operator? 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), 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 Reason for Visit Gastric ulcer Type 2 diabetes mellitus Chronic vomiting Gastric ulcer Hypertension Type 2 diabetes mellitus Abnormal uterine bleeding Encounter for well woman exam with abnormal findings Chief Complaint 3 M FU 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), 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 discuss next steps with medication/bleeding E ORDER 2 MO FU VOMITING SOB, FLU B Reason for Visit Chronic vomiting Gastric ulcer Hypertension Type 2 diabetes mellitus Abnormal uterine bleeding Encounter for well woman exam with abnormal findings Abnormal uterine bleeding Menorrhagia Abnormal uterine bleeding Menorrhagia Abdominal tenderness Blood per rectum Early satiety Irritable bowel syndrome with alternating bowel habits Chronic vomiting Chief Complaint 3 M FU 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), 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 discuss next steps with medication/bleeding E ORDER 2 MO FU VOMITING SOB, FLU B CHRONIC VOMITING 3 M FU Reason for Visit Chronic vomiting Gastric ulcer Hypertension Type 2 diabetes mellitus Abnormal uterine bleeding Encounter for well woman exam with abnormal findings Abnormal uterine bleeding Menorrhagia Abnormal uterine bleeding Menorrhagia Abdominal tenderness Blood per rectum Early satiety Irritable bowel syndrome with alternating bowel habits Chronic vomiting History of pneumonia Hypertension Type 2 diabetes mellitus Chief Complaint 3 M FU 2 wk fu ANXIETY Reason for Visit GERD (gastroesophage al reflux disease) Hypertension Morbid obesity Type 2 diabetes mellitus Bile reflux gastritis GERD (gastroesophageal reflux disease) Irritable bowel syndrome with alternating bowel habits Chief Complaint 3 M FU 2 wk fu ANXIETY [facility] ER FU/THYROID 2 M FU 3 M FU Reason for Visit GERD (gastroesophage al reflux disease) Hypertension Morbid obesity Type 2 diabetes mellitus Bile reflux gastritis GERD (gastroesophageal reflux disease) Irritable bowel syndrome with alternating bowel habits Hypothyroidism Diarrhea LUQ abdominal pain Nausea & vomiting Subclinical hypothyroidism GERD (gastroesophageal reflux disease) Hypertension Type 2 diabetes mellitus Chief Complaint 3 m fu 3 MO FU EORDER Reason for Visit GERD (gastroesophage al reflux disease) Hypertension Type 2 diabetes mellitus Diarrhea Forgetfulness LUQ abdominal pain Nausea & vomiting Chief Complaint Admit Date 4 M FU April 29, 2024 1 0:26am MEMORY ISSUES, NOT SLEEPING May 9:53am 6 M FU June 10, 2024 10:03am CHEST TIGHTNESS June 17, 2024 7:59 am Reason for Visit Admit Date Bipolar disorder April 29, 2024 1 0:26am Forgetfulness April 29, 2024 1 0:26am Hypertension April 29, 2024 1 0:26am Type 2 diabetes mellitus April 29, 2 025 10:26am Forgetfulness June 08, 2024 9:53am Sleep disturbance, unspecified June 08, 2024 9:53am GERD (gastroesophageal reflux disease) F ruary 2024 10:03am Irritable bowel syndrome with alternatin g bowel habits June 10, 2024 10:03am Atypical chest pain June 17, 2024 7:59 am Chief Complaint Admit Date MEMORY ISSUES, NOT SLEEPING May 9:53am 6 M FU June 10, 2024 10:03am CHEST TIGHTNESS June 17, 2024 7:59 am MED FU August 19, 2024 9:39am Test Result August 31, 2024 9:31a m Reason for Visit Admit Date Forgetfulness June 08, 2024 9:53am Sleep disturbance, unspecified June 08, 2024 9:53am GERD (gastroesophageal reflux disease) F [facility] 2024 10:03am Irritable bowel syndrome with alternatin g bowel habits June 10, 2024 10:03am Atypical chest pain June 17, 2024 7:59 am Poor dentition August 19, 2024 9:39am Hypertension August 19, 2024 9:39am Atypical chest pain August 19, 2024 9:39am Additional Source Comments INFORMATION SOURCE (unrecogn ized section and content) DATE CREATED AUTHOR 10/07/2017 [facility] DATE CREATED AUTHOR AUTHOR'S ORGANIZ ATION 04/04/2022 [facility] ([place]) DATE CREATED AUTHOR AUTHOR'S ORGANIZ ATION 07/06/2024 [facility] DATE CREATED AUTHOR AUTHOR'S ORGANIZ ATION 09/10/2024 [facility] Goals (unrecognized section and content) Goals may be documented in a n alternate sectionGoals may be documented in an alternate sectionGoals may be documented in an alternate section No data available for this sectionGoals may be documented in an alternate sectionGoals may be documented in an alternate sectionGoals may be documented in an alternate sectionGoals may be documented in an alternate sectionGoals may be documented in an alternate sectionGoals may be documented in an alternate sectionGoals may be documented in an alternate section Source Comments (unrecognize d section and content) In the event this informatio n is protected by the Federal Confidentiality of Alcohol and Drug Abuse Patient Records regulations: The Federal rules restrict any use of the information to criminally investigate or prosecute any alcohol or drug abuse patient.[facility] the event this information is protected by the Federal Confidentiality of Alcohol and Drug Abuse Patient Records regulations: The Federal rules restrict any use of the information to criminally investigate or prosecute any alcohol or drug abuse patient.[facility] the event this information is protected by the Federal Confidentiality of Alcohol and Drug Abuse Patient Records regulations: The Federal rules restrict any use of the information to criminally investigate or prosecute any alcohol or drug abuse patient.[facility] the event this information is protected by the Federal Confidentiality of Alcohol and Drug Abuse Patient Records regulations: The Federal rules restrict any use of the information to criminally investigate or prosecute any alcohol or drug abuse patient.[facility] the event this information is protected by the Federal Confidentiality of Alcohol and Drug Abuse Patient Records regulations: The Federal rules restrict any use of the information to criminally investigate or prosecute any alcohol or drug abuse patient.[facility] the event this information is protected by the Federal Confidentiality of Alcohol and Drug Abuse Patient Records regulations: The Federal rules restrict any use of the information to criminally investigate or prosecute any alcohol or drug abuse patient.[facility] the event this information is protected by the Federal Confidentiality of Alcohol and Drug Abuse Patient Records regulations: The Federal rules restrict any use of the information to criminally investigate or prosecute any alcohol or drug abuse patient.[facility] the event this information is protected by the Federal Confidentiality of Alcohol and Drug Abuse Patient Records regulations: The Federal rules restrict any use of the information to criminally investigate or prosecute any alcohol or drug abuse patient.[facility] the event this information is protected by the Federal Confidentiality of Alcohol and Drug Abuse Patient Records regulations: The Federal rules restrict any use of the information to criminally investigate or prosecute any alcohol or drug abuse patient.[facility] the event this information is protected by the Federal Confidentiality of Alcohol and Drug Abuse Patient Records regulations: The Federal rules restrict any use of the information to criminally investigate or prosecute any alcohol or drug abuse patient.[facility] the event this information is protected by the Federal Confidentiality of Alcohol and Drug Abuse Patient Records regulations: The Federal rules restrict any use of the information to criminally investigate or prosecute any alcohol or drug abuse patient.[facility] Hospital[facility] the event this information is protected by the Federal Confidentiality of Alcohol and Drug Abuse Patient Records regulations: The Federal rules restrict any use of the information to criminally investigate or prosecute any alcohol or drug abuse patient.[facility] the event this information is protected by the Federal Confidentiality of Alcohol and Drug Abuse Patient Records regulations: The Federal rules restrict any use of the information to criminally investigate or prosecute any alcohol or drug abuse patient.[facility] Hospital[facility] the event this information is protected by the Federal Confidentiality of Alcohol and Drug Abuse Patient Records regulations: The Federal rules restrict any use of the information to criminally investigate or prosecute any alcohol or drug abuse patient.[facility] the event this information is protected by the Federal Confidentiality of Alcohol and Drug Abuse Patient Records regulations: The Federal rules restrict any use of the information to criminally investigate or prosecute any alcohol or drug abuse patient.[facility] the event this information is protected by the Federal Confidentiality of Alcohol and Drug Abuse Patient Records regulations: The Federal rules restrict any use of the information to criminally investigate or prosecute any alcohol or drug abuse patient.[facility] Reason for Visit (unrecogniz ed section and content) Reason Comments Headache Pt reported Del Angel onset x3 days pain rated 6, reported Hx choking on water Reason Comments Cough Raspy throat, sneezi ng runny nose x 1 days exposed to covid wants tested Reason Comments Headache Bodyaches x3 days Reason Comments Urinary Frequency With vaginal dischar ge x5 days Reason Comments Results Reason Comments Wrist Pain right wrist/hand ubaldo n after hitting a marble windowsill x 2 days Reason Comments Cough Congestion, runny no se x2 days, bodyaches, chills, fever x1 day Reason Comments Cough DEL ANGEL, wheezing x 3 day s Reason Comments Derm Problem Pt has 2 areaa on R hand /thumb, raised redness swelling, painful, drainage x 2 daysExposed to MRSA Reason Comments Dental Problem left side bottom too th pain x 2 days Reason Comments Vaginal Problem discharge x 1 day, u rinary frequency and burning x 5 days Reason Onset Date Comments Results 07/06/2024 Care Teams (unrecognized sec tion and content) Assessment Specialist Relationship Specialty Start Date End Date Skyler Rodriges MD [address], [place] [address] PCP - General Internal Medicine 10/01/21 Team Status: Active Member Role Status Dates Dr. Kranthi Harris MD Family Provider Active Dr. Skyler Rodriges MD Primary Care Provider Active Team Status: Inactive Member Role Status Dates Dr. Skyler Rodriges MD Primary Care Malgorzata infante, Attending Provider, Referring Provider Active Team Status: Inactive Member Role Status Dates Dr. Skyler Rodriges MD Primary Care Provider, Refer ring Provider Active Maryann Hussein RAIL TRANSPORTATION TABELER, RAIL TRANSPORTATION TABELER-C Attending Provider Active Team Status: Inactive Member Role Status Dates Dr. Skyler Rodriges MD Primary Care Provider Active Dr. Silvio Villafana MD Emergency Provider Active Team Status: Inactive Member Role Status Dates Dr. Skyler Rodriges MD Primary Care Provider, Refer ring Provider Active Colt Chen RAIL TRANSPORTATION TABELER, RAIL TRANSPORTATION TABELER-C Attending Provider Active Team Status: Inactive Member Role Status Dates Dr. Skyler Rodriges MD Primary Care Provider Active Dr. Silvio Villafana MD Attending Provider, Emergency Provider Active Assessment Specialist Relationship Specialty Start Date End Date Skyler Rodriges MD [address] [place] [address] PCP - General Internal Medicine 10/01/21 Team Status: Inactive Member Role Status Dates Dr. Skyler Rodriges MD Primary Care Provider, Refer ring Provider Active Dr. Chaim Law DO Attending Provider Active Team Status: Inactive Member Role Status Dates Dr. Skyler Rodriges MD Primary Care Provider Active Dr. Chaim Law DO Attending Provider, Referring Provider Active Assessment Specialist Relationship Specialty Start Date End Date Skyler Rodriges MD [address] [place] [address] PCP - General Internal Medicine 10/01/21 Assessment Specialist Relationship Specialty Start Date End Date Skyler Rodriges MD [address] [place] [address] PCP - General Internal Medicine 10/01/21 Assessment Specialist Relationship Specialty Start Date End Date Skyler Rodriges MD [address] [place] [address] PCP - General Internal Medicine 10/01/21 Assessment Specialist Relationship Specialty Start Date End Date Skyler Rodriges MD [address] [place] [address] PCP - General Internal Medicine 10/01/21 Assessment Specialist Relationship Specialty Start Date End Date Skyler Rodriges MD [address] [place] [address] PCP - General Internal Medicine 10/01/21 Assessment Specialist Relationship Specialty Start Date End Date Skyler Rodriges MD [address] [place] [address] PCP - General Internal Medicine 10/01/21 Assessment Specialist Relationship Specialty Start Date End Date Skyler Rodriges MD [address] [place] [address] PCP - General Internal Medicine 10/01/21 Assessment Specialist Relationship Specialty Start Date End Date Skyler Rodriges MD [address] [place] [address] PCP - General Internal Medicine 10/01/21 Assessment Specialist Relationship Specialty Start Date End Date Skyler Rodriges MD [address] [place] [address] PCP - General Internal Medicine 10/01/21 Assessment Specialist Relationship Specialty Start Date End Date Skyler Rodriges MD [address] [place] [address] PCP - General Internal Medicine 10/01/21 Assessment Specialist Relationship Specialty Start Date End Date Skyler Rodriges MD [address] [place] [address] PCP - General Internal Medicine 10/01/21 Team Status: Inactive Member Role Status Dates Dr. Skyler Rodriges MD Primary Care Provider Active Start: April 29, 2024 End: April 29, 2024 Dr. Skyler Rodriges MD Attending Provider Active Start: April 29, 2024 End: April 29, 2024 Dr. Skyler Rodriges MD Referring Provider Active Start: April 29, 2024 End: April 29, 2024 Team Status: Inactive Member Role Status Dates Dr. Skyler Rodriges MD Primary Care Provider Active Start: June 08, 2024 End: June 08, 2024 Dr. Skyler Rodriges MD Referring Provider Active Start: June 08, 2024 End: June 08, 2024 Dr. Bruce Hurtado MD Attending Provider Active Start: June 08, 2024 End: June 08, 2024 Team Status: Inactive Member Role Status Dates Dr. Skyler Rodriges MD Primary Care Provider Active Start: June 10, 2024 End: June 10, 2024 Dr. Skyler Rodriges MD Referring Provider Active Start: June 10, 2024 End: June 10, 2024 DEJA Saldana Attending Provider Active Start: June 10, 2024 End: June 10, 2024 Team Status: Inactive Member Role Status Dates Dr. Skyler Rodriges MD Primary Care Provider Active Start: June 17, 2024 End: June 17, 2024 Dr. Skyler Rodriges MD Referring Provider Active Start: June 17, 2024 End: June 17, 2024 DEJA Moncada Attending Provider Active St art: June 17, 2024 End: June 17, 2024 Team Status: Inactive Member Role Status Dates Dr. Skyler Rodriges MD Primary Care Provider Active Start: June 17, 2024 End: June 17, 2024 Dr. Skyler Rodriges MD Attending Provider Active Start: June 17, 2024 End: June 17, 2024 Dr. Skyler Rodriges MD Referring Provider Active Start: June 17, 2024 End: June 17, 2024 Team Status: Active Member Role Status Dates Dr. Skyler Rodriges MD Primary Care Provider Active Team Status: Inactive Member Role Status Dates Dr. Skyler Rodriges MD Primary Care Provider Active Start: August 19, 2024 End: August 19, 2024 Dr. Skyler Rodriges MD Referring Provider Active Start: August 19, 2024 End: August 19, 2024 DEJA Moncada Attending Provider Active St art: August 19, 2024 End: August 19, 2024 Team Status: Inactive Member Role Status Dates Dr. Skyler Rodriges MD Primary Care Provider Active Start: August 31, 2024 End: August 31, 2024 Dr. Skyler Rodriges MD Referring Provider Active Start: August 31, 2024 End: August 31, 2024 DEJA Saldana Attending Provider Active Start: August 31, 2024 End: August 31, 2024 Care Team (unrecognized sect ion and content) Care Team Personnel Name: KRANTHI HARRIS MD Member Role: Primary Care Physician Address: Address: [address] [place] [address] Care Team Related Persons Name: FRANCISCO COBB Address: Home [address] Name: CONSTANCE ORTIZ Name: CONSTANCE ORTIZ [...] BE BASED ON THE PRIMARY CLINICAL RECORDS. [employer] provides no warranty or guarantee of the accuracy or completeness of information in this document.
[2024-09-16 15:45] LABS: HPV Reflexed? NOT INDICATED
== END | disposition home or self-care (01) ==
LOC: LABSPEC 11:46
PROVIDERS: PCP Internal Medicine; Referring Provider Nurse Practitioner Family; Visit Provider Nurse Practitioner Family
DX: Z12.4 Encounter for screening for malignant neoplasm of cervix (principal); N89.8 Other specified noninflammatory disorders of vagina
CPT/HCPCS: 87070; 87205; 88175; G0145

== ENCOUNTER 2024-09-27 17:27 | Emergency (ER) | payer MEDICAID, SELFPAY ==
[2024-09-27 17:29] VITALS: BP 150/115; PULSE 77; RESP 16; TEMP 36; O2SAT 99; BMI 37.2
--- NOTE | 2024-09-27 17:56 | EDS_ITS ---
HPI History of Present Illness Chief Complaint: Mental Health Narrative Narrative: Patient is a 29-year-old female with past medical history of Torres, hypothyroidism, GERD, diabetes, anxiety, hypertension who presents to the emergency department with a chief complaint of wanting help from a mental health standpoint. Patient states that her psychiatrist is on maternity leave and notes that she feels that she has not had thoughts of killing yourself or killing other people. In the triage note it states that she has had thoughts of harming people when they are stupid but states that during my exam that she does not have these thoughts. Patient states that she has not been hospitalized for mental health standpoint but has been hospitalized for substance abuse in the past. She states that she has been clean for 4 years. Patient states that she has been taking care of her self showering eating and drinking. She states that she has not slept the past few nights and states that she did stop taking her ADHD medication. [facility] Medical History TORRES (nonalcoholic steatohepatitis) Encounter for vitamin deficiency screening Atypical chest pain Chronic constipation Subclinical hypothyroidism Hypothyroidism GERD (gastroesophageal reflux disease) Wears glasses Depression Marijuana use Diabetes History of ulceration Gastric reflux Smoker Shortness of breath on exertion History of echocardiogram History of pneumonia Chronic vomiting Gastric ulcer Type 2 diabetes mellitus Ulcer Diabetes Tobacco abuse Morbid obesity Hypertension Anxiety Home Medications ?Medication ?Instructions ?Recorded ?Last Taken ?Type cholecalciferol (vitamin D3) 1,250 1,250 mcg PO QWEEK #20 caps 02/22/24 Unknown Rx mcg (50,000 unit) capsule inulin 2 gram chewable tablet g PO 02/22/24 Unknown Hi story (Fiber Gummies) lamotrigine 150 mg tablet 150 mg PO BID 06/08/24 Unkno wn History (Lamictal) omeprazole 20 mg tablet,delayed 20 mg PO QDAY PRN 05/15 10/05 Unknown History release lisinopril 10 mg tablet 10 mg PO DAILY #30 tabs 06/12 10/05 Unknown Rx atomoxetine 60 mg capsule 60 mg PO 09/27/24 Unknown Hi story Allergy/AdvReac Type Severity Reaction Status Date / Time amoxicillin (Amoxicillin) Allergy Hives Verified 09/27/24 17:32 propranolol HCl (From Allergy Hives Verified 09/27/24 17:32 Inderal [place]) Family History Unknown Diabetes Multiple sclerosis cousin Mother Diabetes Hypertension Grandmother Diabetes Hypertension Aunt Multiple sclerosis Surgical History Hx of cholecystectomy Hx of colonoscopy History of cholecystectomy Social History household members: other details: mom current occupational status: disabled Smoking Status: Current some day smoker tobacco type: pipe Tobacco: How many years used: 7 alcohol intake: never substance use type: former substance user Date of last use: 04/16/2020, marijuana and methamphetamine caffeine: Yes Type: carbonated beverages Number of servings: 4 and tea what type of physical activity do you participate in: walking seatbelt use: always do you feel safe at home: Yes additional social history: unemployed ROS ROS ED ROS Narrative Constitutional: Denies any fevers, chills, headaches Eyes: Denies change in vision double vision blurry vision Cardiovascular: Denies chest pain Respiratory: Denies shortness of breath Abdomen: Denies abdominal pain nausea vomit diarrhea : Denies urinary symptoms Neurological: Denies numbness, aches, tingling Musculoskeletal: Denies back pain Skin: Denies rashes or lesions EXAM Physical Exam Narrative Exam Narrative: General: Patient was lying in bed rest comfortably did not appear to be acute distress was tearful during exam Head: Atraumatic, normocephalic Eyes: PERRL bilaterally, EOMI bilateral, no conjunctival injection noted Neck: Soft, supple, trachea midline Cardiovascular: Regular rate and rhythm no murmurs gallops rubs noted Respiratory: Clear to auscultation bilaterally no rales rhonchi or wheezes noted Abdomen: Soft, nondistended, no tenderness palpation Extremities: +5/5 strength noted in the bilateral upper and lower extremities, radial pulse +2/4 in the bilateral extremities Neurological: Patient following commands knew that she was at [facility] year is 2024 Skin: Warm, dry, intact no rashes or lesions noted Const Vital Signs: 09/27/24 17:29 09/27/24 19:48 Temperature 96.8 F L 98.5 F Temperature Source Temporal Pulse Rate 77 65 Respiratory Rate 16 18 Blood Pressure 150/115 H 137/96 H Blood Pressure Mean 126 109 Pulse Ox 99 98 Oxygen Delivery Method Room Air MDM MDM MDM Narrative Medical decision making narrative: Patient is a 29-year-old female who presented to the emergency department with a chief complaint of racing thoughts and not sleeping well. On the differential diagnosis includes but not limited to anxiety, depression, bipolar disorder. Once workup is obtained reviewed she will be evaluated by social work. Patient's CBC reviewed showed no evidence leukocytosis white blood count normal 8.8, hemoglobin 13.8, plate count of 351. Patient's sodium was noted to be normal at 140, potassium normal 3.7, creatinine was 0.85. Patient's test was negative, drug screen was presumptive positive for cannabis, alcohol level less than 10. Social work evaluated the patient and will safety plan the patient with resources for intensive outpatient therapy. Patient originally wanted this as well. She is agreeable this plan she was encouraged return with worsening symptoms and concerns. All question concerns answered she was discharged home in stable condition. Lab Data Labs: Laboratory Results - last 24 hr 09/27/24 09/27/24 17:46 18:10 WBC 8.8 RBC 4.64 Hgb 13.8 Hct 40.5 MCV 87.3 MCH 29.7 MCHC 34.1 RDW Std Deviation 40.3 RDW Coeff of Anila 12.8 Plt Count 351 MPV 10.2 Immature Gran % (Auto) 0.200 Neut % (Auto) 57.9 Lymph % (Auto) 31.6 Irwin % (Auto) 7.3 Eos % (Auto) 2.4 Baso % (Auto) 0.6 Absolute Neuts (auto) 5.1 Absolute Lymphs (auto) 2.78 Nucleated RBC % 0 Sodium 140 Potassium 3.7 Chloride 103 Carbon Dioxide 22.9 Anion Gap 13 BUN 9 Creatinine 0.85 Estim Creat Clear Calc 108.23 Est GFR (MDRD) Non-Af 96 BUN/Creatinine Ratio 10.4 Glucose 102 H Calcium 9.1 Serum , Qual NEGATIVE Urine Opiates Screen NEGATIVE U Buprenorphine Qual NEGATIVE Ur Oxycodone Screen NEGATIVE Urine Methadone Screen NEGATIVE Urine Fentanyl Screen NEGATIVE Ur Barbiturates Screen NEGATIVE Ur Phencyclidine Scrn NEGATIVE Ur Amphetamines Screen NEGATIVE U Benzodiazepines Scrn NEGATIVE Urine Cocaine Screen NEGATIVE U Cannabinoids Screen PRESUMPTIVE POSITIVE Ethyl Alcohol < 10.1 Discharge Plan Triage Chief Complaint: Mental Health ED Provider: Lanre Moreno Dx/Rx/DC Orders Clinical Impression: Depression Prescriptions: No Action Fiber Gummies 2 gram tablet,chewable PO Rx Instructions: 2 gummies qd omeprazole 20 mg tablet,delayed release (DR/EC) 20 mg PO QDAY PRN lamotrigine [Lamictal] 150 mg tablet 150 mg PO BID atomoxetine 60 mg capsule 60 mg PO cholecalciferol (vitamin D3) 1,250 mcg (50,000 unit) capsule 1,250 mcg PO QWEEK Qty: 20 1RF lisinopril 10 mg tablet 10 mg PO DAILY Qty: 30 0RF Primary Care Provider: Sergio Rodriges Referrals: Sergio Rodriges MD [Primary Care Provider] - Activity Restrictions/Additional Instructions: Follow-up with the provided resources. Return with worsening symptoms or any concerns. Print Language: Urdu Disposition Disposition: Home, Self Care
[2024-09-27 18:14] LABS: Absolute Lymphocyte Count 2.78 X10^3/uL (0.83-4.51); Absolute Neutrophil Count 5.1 X10^3/uL (2.0-7.7); Basophil# 0.05 X10^3/uL; Basophil% 0.6 % (0-1); Eosinophil# 0.21 X10^3/uL; Eosinophils% 2.4 % (0-5); Hematocrit 40.5 % (37-47); Hemoglobin 13.8 g/dL (12.0-15.0); Lymphocyte # 2.78 X10^3/ul (0.83-4.51); Lymphocyte % 31.6 % (19-41); Mean Corp Hgb Conc 34.1 g/dL (32-36); Mean Corpuscular Hgb 29.7 pg (27.0-32.0); Mean Corpuscular Volume 87.3 fL (81-99); Mean Platelet Vol. 10.2 fl (6.2-12.0); Monocyte# 0.64 X10^3/uL; Monocyte% 7.3 % (0-10); NRBC Flagged by Analyzer 0 % (0-5); Neutrophil # 5.11 X10^3/uL (2.7-7.7); Neutrophil % 57.9 % (47-70); Platelet Count 351 K/mm3 (150-450); RBC Distribution Width CV 12.8 % (11.6-14.6); RBC Distribution Width SD 40.3 fl (35.1-43.9); Red Blood Count 4.64 M/mm3 (4.2-5.4); White Blood Count 8.8 K/mm3 (4.4-11.0)
[2024-09-27 18:22] LABS: Internal QC Validated? YES +Cl - CLEAR BKGD; Pregnancy, Serum, hCG Quali. NEGATIVE Negative; Record Kit Lot#, Serum Preg. 947241
[2024-09-27 18:34] LABS: Anion Gap 13 (5-15); BUN 9 mg/dL (4-19); BUN/Creat Ratio 10.4 RATIO (10-20); Calcium,Total 9.1 mg/dL (7.6-11.0); Carbon Dioxide 22.9 mmol/L (21.0-32.0); Chloride 103 mmol/L (98-108); Creatinine, Serum 0.85 mg/dL (0.70-1.20); EST Glomerular Filtration Rate 96 (>60); Estimated Creatinine Clearance 108.23 ml/min (50-250); Glucose 102 mg/dL (70-99); Potassium 3.7 mmol/L (3.3-5.1); Sodium Level 140 mmol/L (133-145)
[2024-09-27 18:40] LABS: Amphetamine Urine NEGATIVE (<1000 ng/mL); Barbiturate Urine NEGATIVE (< 200 ng/mL); Benzodiazepine Urine NEGATIVE (< 200 ng/mL); Buprenorphine Urine NEGATIVE (< 200 ng/mL); Cocaine Urine NEGATIVE (< 300 ng/mL); Fentanyl, Urine NEGATIVE; Methadone Urine NEGATIVE (< 300 ng/mL); Opiates Urine NEGATIVE (< 300 ng/mL); Oxycodone, Urine NEGATIVE (< 100 ng/mL); PCP Urine NEGATIVE (< 25 ng/mL); THC Urine PRESUMPTIVE POSITIVE (< 50 ng/mL)
[2024-09-27 18:46] LABS: Alcohol, Blood (Medical)-Serum < 10.1 mg/dL (<=10.0)
[2024-09-27 19:48] VITALS: BP 137/96; PULSE 65; RESP 18; TEMP 36.9; O2SAT 98
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
--- NOTE | 2024-09-27 20:05 | CM.ED ---
Social work After talking with Dr. Moreno, it was agreed upon that patient could be discharged with a safety plan. Patient completed safety plan with SW and then patient's mother, Caridad, was called to review safety plan ([phone]). Dr. Moreno updated and Ai VALDERRAMA updated. Safety plan copy added to patient's chart. [facility] Behavioral Health referral faxed. Shagufta Irene, GAS OPERATIONS SUPERINTENDENT, ASSISTANT MANAGER QUALITY MANAGEMENT
== END 2024-09-27 20:09 | disposition home or self-care (01) ==
PROVIDERS: Emergency Provider Emergency Medicine; PCP Internal Medicine; Visit Provider Emergency Medicine
DX: F32.A Depression, unspecified (principal); E11.9 Type 2 diabetes mellitus without complications; Z79.4 Long term (current) use of insulin; F41.9 Anxiety disorder, unspecified; I10 Essential (primary) hypertension; Z90.49 Acquired absence of other specified parts of digestive tract; F17.290 Nicotine dependence, other tobacco product, uncomplicated; E03.9 Hypothyroidism, unspecified; K21.9 Gastro-esophageal reflux disease without esophagitis
CPT/HCPCS: 80048; 80307; 82077; 84703; 85025; 99283

== ENCOUNTER 2024-10-05 08:00 | Outpatient (RCR) | payer MEDICAID, SELFPAY ==
[2024-10-07 10:04] VITALS: BP 138/95; PULSE 64
== END 2024-10-10 23:59 ==
LOC: BHIOP 08:00
PROVIDERS: PCP Internal Medicine; Referring Provider Student in an Organized Health Care Education/Training Program; Visit Provider Student in an Organized Health Care Education/Training Program
DX: F31.9 Bipolar disorder, unspecified (principal); F15.11 Other stimulant abuse, in remission; F12.90 Cannabis use, unspecified, uncomplicated; F11.91 Opioid use, unspecified, in remission
CPT/HCPCS: H2012; H2020

== ENCOUNTER 2024-10-11 07:19 | Outpatient (RCR) | payer MEDICAID, SELFPAY ==
--- NOTE | 2024-10-11 09:00 | BH.SGPN.GN ---
Behaviors/Verbalizations/Mental Status: [] ?Eye contact is good. Motor activity is appropriate. Appearance is casual. Speech is Appropriate. Mood is content, anxious. Affect is congruent. Thoughts are linear and logical. No evidence of psychosis. Reviewed daily check in sheet and no reports of suicidal ideations or intent. Client Response/Progress/Benefit: [] ?Pt was an active participant in group discussions. Attentive. Did well to identify 2 mental health wins including managing to walk away when feeling overwhelmed while volunteering at [employer]. Stated that in the past pt would have lashed out instead. 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 Current stressor noted as her grandmother's health. Reports trying to focus on what's in her control and visit her when she can. Progress noted. Benefited from group support, encouragement, and feedback. Will continue in IOP to prevent decompensation, promote mood stability, and increase healthy coping consistency. Narrative Note: []
--- NOTE | 2024-10-11 11:12 | BH.MDN_ITS ---
Multi-Disciplinary Note Note 30-min Individual: Time Started:: 10:40 Date: 10/11/24 Purpose of session/treatment goals addressed:: To gather information on pt's current stressors, symptoms, triggers, history, and tx goals. Another goal was to build rapport and provide emotional support. Eye Contact:: Good Motor Activity:: Appropriate Appearance:: Casual Speech:: Appropriate Mood:: Anxious and Depressed Affect:: Congruent Thoughts:: Linear, Logical and No evidence of hallucinations/delusions noted Staff Interventions:: motivational interviewing, CBT techniques, rapport building, treatment planning and goal setting Client Response:: Pt responded well to session, open to meeting with therapist. Pt shared she enjoys IOP so far and she has been in the [facility] IOP previously which has been helpful. Pt attended their IOP program multiple times while getting sober from meth and has been sober for 4.5 years. Pt stated what helps the most in therapy so far is working on dialectical thinking and reminding herself that two things can be true at once. Pt stated she does not like homework and does better with task related goals vs. writing activities. Pt lives with her mother and noted that her grandmother recently moved out to go to a shelter. Shared that this has been a stressor for her. Pt additionally reports the recent end of her relationship has been a stressor as well. Identified wanting to work on coping with this as well as building self- confidence and better advocating for her needs. Pt will continue IOP tx and meet with therapist next week. Risks/Concerns:: Pt denies any suicidal ideations, plan, or intent. Pt denies any thoughts of . Progress Toward Goals/Plan:: Pt is responding well to IOP tx AEB pt reporting benefitting from the social support and group topics. Pt reports she has been seeing a therapist at [facility] and she finds this helpful. Pt shared her symptoms have been impacting her ability to maintain connections, manage her emotions, and move forward. Pt will continue IOP tx to prevent decompensation, improve distress tolerance skills, and gain healthy support. Time Stopped:: 11:17
--- NOTE | 2024-10-11 11:15 | BH.SGPN.GN ---
Behaviors/Verbalizations/Mental Status: []Client alert and oriented, casually dressed and groomed. Eye contact good. Motor activity appropriate. Speech within normal limits. Affect congruent, mood anxious. Thoughts linear, logical, no signs of hallucinations or delusions. Client Response/Progress/Benefit: [] Pt engaged in session AEB contributing to discussion and engaging in small group. Attentive during discussion on strategies for more effectively managing conflict in personal life. Pt noted current conflict resolution style uses the most is avoidant. Pt able to connect how current conflict style impacts relationships. Pt participated in small group for activity and did well practicing how to manage conflict scenarios. Pt given handout on fair fighting rules and how to identify common conflict barriers. Pt indicated what needs improvement in conflict for them. Appeared to benefit from gaining strategies to help Pt better manage conflict. Will continue IOP tx improve emotion regulation, improve view of self, and prevent decompensation.
--- NOTE | 2024-10-11 13:31 | BH.PSA ---
Source of Information Presenting Problems/Circumstances Problems, Referral Source, Mental Status, Client: Musa Cobb is a 29 year old female who was referred to [facility] tx by the ER following a recent visit for anxiety/panic/self-harm via hitting self. Patient admits to having been following with the Counseling Center for prolonged period intermittently. For the past year has been having explosions and periods of irritability. Admits to having significant anxiety, specifically in social situations Psychiatric Presentation Psych Issues & Need for Admission Psychiatric Issues:: Bipolar, anxiety, depression, irritability/anger outbursts Past Psychiatric History MH Treatment Hx Treatment History: Pt is currently connected with the counseling center and [facility] for ongoing mental health and substance abuse tx. 3 psych holds; all at [facility] and prior residential substance use treatment. Consistent individual counseling since 2020 First hospitalization:: unsure exact date 2017 [facility] for SI Most recent hospitalization:: 2018 [facility] for SI (3x in 2018) Medication Trials:: Yes ( lamotrigine - currently on 150 mg BID atomoxetine aripiprazole celexa) ECT Therapy:: No Age of first mental health symptoms: Pt reports struggling with anxiety, depression, an d irritability much of her life Describe (age, circumstance, etc) any past hospitalizations: 3x due to suicidal ideations while using meth Current providers for mental health treatment (counselor, psychiatrist, case management manager, etc.): [facility] counseling and [facility] for psychiatry Development & Family of Origin Childhood Significant Childhood Events: Pt reports she began smoking at age 14. Shared that she has always felt judged by her family and negatively compared to her father. Pt reports her father has been an inconsistent part of her life and she was raised primarily by mother Family Who currently lives in your home?: Pt lives in a condo with her mother. Grandmother recently moved to a retirement in March but had been living in the home for the last year. Describe family composition:: Pt is estranged from her father and has a mostly positive relationship with her mother whom she lives with. She has a half-sister she has never met. Close with grandmother who was recently moved into a retirement Family History Family History Unknown Diabetes Multiple sclerosis cousin Mother Diabetes Hypertension Grandmother Diabetes Hypertension Aunt Multiple sclerosis Family Hx of Psychiatric or AOD Problems: Father is bipolar and grandmother has depression, unknown AOD hx Ethnicity Culture Do you identify yourself with any particular cultural, ethnic background, or community?: No Sexuality Sexual Orientation: Heterosexual Spirituality Sikhism Do you currently identify with any organized mormon?: None Beliefs Is there a particular form of support from this community you can use for your recovery?: No Mental Status Memory Recent Memory: Fair Remote Memory: Fair Concentration Concentration: Fair Eye Contact Eye Contact: Good Speech Speech: Pressured Thought Process Thought Process: Logical Insight: Fair Judgment: Fair Behavior: Normal Orientation Orientation: Time, Person, Place and Situation Appearance Appearance: Appropriate Mood Mood: Anxious and Irritable Affect Affect: Appropriate/calm Suicide Assessment Suicidal Ideation Have you ever felt like hurting yourself?: Yes Please explain:: hx of chronic passive si. hx of self-harm via hitting/scratching self Were you using ETOH/drugs at the time?: Yes (meth) Suicidal Intentional Rating Scale (SIRS): Suicidal thoughts (past) Physician Notification Violent Behavior/Abuse History Homicidal Ideation Do you have any homicidal thoughts? If so, explain:: No Is there a known potential victim? If yes, who:: No Abuse Have you ever been abused?: No Life Events Are there any other significant life events?: Hardships (hx of significant meth use resulting in significant dental damage which is a stressor) and Family illness (grandmother) Safety Do you ever feel threatened in your home? If yes, describe:: No Adult Social History Age 19 to Present Describe your current support system:: Mother, [employer], some friends Substance Use Substance Substance Use Type: Marijuana (daily), Methamphetamine (4.5 years sober), Tobacco (daily since age 14) and Caffeine (4 sodas a day) IV Substance Use Do you have a history of IV use?: denies Leisure/Social Activities Interests What do you enjoy or might be interested in learning about?: Skills to regulate mood and reduce anxiety Education & Occupational Histo Education What is your level of education?: High School (some cosmetology school ) Do you have any learning disabilities?: Yes (ADHD) 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 If yes, describe:: Yes (related to drug use/possession ) Court Orders Have you had any past court orders for psychiatric treatment?: No Do you have a present court order for psychiatric treatment?: No Problem Checklist Current Problem Areas Problem List: Anxiety, Mood swings/hyperactivity, Substance use (by hx), Other addictive behaviors and Pertinent health issues Discharge Planning Needs Anticipated Follow-Up Mental Health Center (Name/Phone Number):: [facility] Private Therapist/Psychiatrist:: Arron Haynes [facility] Family and Caregiver Contacts:: Mom Release of Information Signed:: Yes [facility]er's Assessment Client's Needs What are the client's feelings about the program?: Pt is hopeful and looking forward to the support of the program and fellow participants What are the client's goals?: Improve mood stability, better manage anger/reduce emotional outbursts What are the client's strengths?: motivated, strong support, familiar with group environment Diagnoses Diagnoses Diagnosis #1:: Bipolar I disorder Diagnosis #2:: Hx of polysubstance use disorder Interpretive Summary Interpretive Summary Interpretive Summary: Musa Cobb is a 29 year old female who presents today for IOP intake evaluation. Patient admits to having been following with the [facility] for prolonged period intermittently. For the past year has been having explosions and periods of irritability. Admits to having significant anxiety, specifically in social situations. Gives example of being told what to do at work, shaking violently and then leaving the job. Describes a low frustration tolerance. Has breakdowns regularly which are described as irritability. Did think that there was some association with her period, but determined that wasn't the case. Feels anxious right now; yesterday was irritable after getting in to an argument with neighbor about their dogs. Had not talked to her in about 2-3 years but did get very frustrated with her yesterday. Had been diagnosed with ADHD, but stopped taking her atomoxetine as she felt that it was making things worse. Does admit to having significant methamphetamine use history, was using regularly an unknown amount, but hasn't used in 4.5 years. Denies AH, but does have periods where she thinks she might not hear things, but doesn't feel distress from this. Volunteers at [employer]. Not participating in NA. Grandmother had been living with patient's family for about a year before moving in to a retirement in March. Treatment Plan Recommendations Recommendations Guidelines Recommendations:: The patient will start the IOP in [facility] at [facility] as the structure, support, education and group therapy with ideally prevent worsening of patient's symptoms which could result in admission to higher level of care such as [facility] or psychiatric admission.
--- NOTE | 2024-10-11 14:10 | BH.MTP ---
Master Treatment Plan Patient Information Program Physician:: Dr. Ishmael Koroma Primary Therapist:: MICKI Spaulding Psychiatric Diagnoses Psychiatric Diagnoses:: Bipolar 1 Disorder, Hx of polysubstance abuse (4.5 years sober) Diagnosis Code(s):: F31.0 Estimated LOS Estimated LOS (in weeks):: 6 Problem/Goal #1 Problem/Goal #1 Stated Goal:: Achieve controlled behavior, moderated mood, more deliberative speech and thought process, and a stable daily activity pattern. Client will also increase mood stability, reduce depression AEB self-report and reduction of scores of the bipolar and depression domain on the DSM-5 cross-cutting scales. Description of Barriers: self-medication with cannabis on daily basis, limited benefit from medications, significant psychosocial stressors (finances, interpersonal relationship). Functional Impact: Anxiety and panic attacks have led to avoidance of certain places/activities. Has also led to isolation and increased use of cannabis use to numb emotions. Irritability has resulted in lashing out on supports Goal Relevant Strengths/Supports: motivated to change, strong family and recovery support Objectives Objective #1: Stated Objective: Client will increase self-awareness of bipolar illness through education from individual therapist as well as educational handouts. Interventions: Through individual and group counseling will provide education on criteria for Bipolar, define paul/hypomania, identify warning signs to paul, and develop an individualized and written Bipolar management plan for patient Discharge Criteria: Complete Bipolar management plan. Target Date: 11/17/24 Review Date: 10/27/24 Objective #2: Stated Objective: Client will identify at least 2-3 negative self-talk messages used to reinforce negative core beliefs and low self-worth and replace thoughts with more realistic messages. Interventions: Through individual and group counseling will assist client in identifying, challenging, and replacing dysfunctional thoughts with positive, more realistic thoughts. Therapist will use CBT and DBT techniques to help client gain awareness of thinking errors and learn how to more effectively handle negative thoughts that reinforce unhealthy coping skills Discharge Criteria: Will be able to identify 2-3 negative self-talk messages and identify 2 strategies to reframe/challenge these thoughts. Target Date: 11/17/24 Review Date: 10/27/24 Problem/Goal #2 Problem/Goal #2 Stated Goal:: Client will reduce anxiety and panic symptoms while increasing ability to function on daily basis AEB self report and reduction of scores on the anxiety domain of the DSM-5 SCALES. Description of Barriers: self-medication with cannabis on daily basis, limited benefit from medications, significant psychosocial stressors (finances, interpersonal relationship). Functional Impact: Anxiety and panic attacks have led to avoidance of certain places/activities. Has also led to isolation and increased use of cannabis use to numb emotions. Irritability has resulted in lashing out on supports Goal Relevant Strengths/Supports: motivated to change, strong family and recovery support Objectives Objective #1: Stated Objective: : Client will identify 2-3 anxiety/panic triggers and 2 coping skills to use when feeling anxious to manage anxiety/panic attacks as shown by decreasing his DSM-5 scores for anxiety Interventions: Through individual and group counseling will provide education on anxiety, avoidance behaviors, and maintenance cycles. Therapist will help client explore personal symptoms and warning signs of anxiety. Therapist will teach client coping skills to improve emotional regulation, mindfulness, and distress tolerance to help client cope with anxiety in the moment. Discharge Criteria: Able to identify anxiety triggers and a two strategies to cope and calm anxiety. Target Date: 11/17/24 Review Date: 10/27/24
--- NOTE | 2024-10-12 09:00 | BH.SGPN.GN ---
Behaviors/Verbalizations/Mental Status: []Pt alert and oriented, disheveled appearance.. Eye contact good. Motor activity appropriate. Speech within normal limits. Affect congruent, mood anxious Thoughts linear, logical, no signs of hallucinations or delusions. Reviewed pt?s symptom tracker, no risk for suicidal ideation, plan, or intent 10/12/24. Client Response/Progress/Benefit: []Pt was an active participant in group discussions. Attentive. Able to identify mental health wins including using before/after pictures to increase her motivation to clean and planting florian. Pt's stressor today is ?I?ve been avoiding making calls to the dentist, but I need to do it today.? The group offered pt encouragement and emotional support which pt reported was helpful. Pt is feeling anxious and dreading this morning. Pt receptive to feedback from peers. Progress noted. Benefited from group support, encouragement, and feedback. Will continue IOP tx to increase distress tolerance skills, reduce avoidance, and improve daily functioning. Narrative Note: []
--- NOTE | 2024-10-12 10:10 | BH.SGPN.GN ---
Behaviors/Verbalizations/Mental Status: [] Client alert and oriented, casually dressed and groomed. Eye contact good. Motor activity appropriate. Speech within normal limits. Affect congruent, mood euthymic. Thoughts linear, logical, no signs of hallucinations or delusions. Client Response/Progress/Benefit: [] Pt engaged in session AEB client listening attentively to peers and providing input. Attentive and contributed to discussion as group worked on defining self-forgiveness and identifying mental health benefit. Identified benefits as: reduce guilt/shame, increase self-confidence, decrease negative self-talk, healthier relationships, ect. ?Worked in small groups to identify factors that can make self-forgiveness difficult. Pt identified a personal barrier to self-forgiveness. Benefited from increased education on self-forgiveness, benefits, and what effects it. Pt will continue IOP tx to improve view of self, challenge negative thoughts, and prevent decompensation.
--- NOTE | 2024-10-12 11:15 | BH.SGPN.GN ---
Behaviors/Verbalizations/Mental Status: [] Client alert and oriented, casually dressed and groomed. Eye contact fair to good. Motor activity appropriate. Speech within normal limits. Affect congruent, mood depressed. Thoughts linear, logical, no signs of hallucinations or delusions. Client Response/Progress/Benefit: [] Pt engaged in session AEB client listening attentively to peers and providing input. Attentive during psychoeducation on the 4 R?s of Self-Forgiveness (Responsibility, Remorse, Sabianist, Renewal). Contributed to discussion as group worked on identifying strategies for improving ability to practice self-forgiveness. Reports wanting to practice self-compassion and starting small. Engaged in self-forgiveness activity and benefited from increased education on self-forgiveness building skills. Pt will continue IOP tx to improve mood stability, increase healthy coping repertoire, and prevent decompensation. Narrative Note: []
--- NOTE | 2024-10-13 09:05 | BH.SGPN.GN ---
Behaviors/Verbalizations/Mental Status: [] Eye contact is good. Motor activity is appropriate. Appearance is casual. Speech is Appropriate. Mood is depressed and irritable. Affect is congruent. Thoughts are linear and logical. No evidence of psychosis. Reviewed daily check in sheet and no reports of suicidal ideations or intent. Client Response/Progress/Benefit: [] Pt participated when prompted. Attentive. Daily symptom tracker notes 2/5 for depression, anxiety, irritability, and self-harm urges. Shared with the group a recent anger outburst brought on by daily frustrations. She was ruminating on her inability to manage her anger however when processed fully she was able to utilize skills and not allow the frustrations to impact her throughout the day. Able to identify progress. Progress noted. Benefited from group support, encouragement, and feedback. Will continue in IOP to maintain safety, prevent decompensation, and increase healthy coping. Narrative Note: []
--- NOTE | 2024-10-13 10:10 | BH.SGPN.GN ---
Behaviors/Verbalizations/Mental Status: []Eye contact is good. Motor activity is appropriate. Appearance is casual. Speech is Appropriate. Mood is euthymic. Affect is congruent. Thoughts are linear and logical. No evidence of psychosis. Client Response/Progress/Benefit: [] Pt receptive to session AEB listening attentively to others and taking notes. Pt attentive and contributed throughout psychoeducation on the cognitive triangle and maintenance cycles. Pt engaged during group discussion reviewing the impact of daily activities and behaviors in either reinforcing unhealthy maintenance cycles and depression or assisting in reducing symptoms (?down? vs ?up? activities). Pt participated during interactive discussion in which pt identified their own common up activities (crafting, listen to music, getting in the sun, and change clothes) and down activities (poor hygiene, staying in bed, and staying indoors too long). Appeared to benefit from increased awareness of current behaviors and impact these have on mental health. Will continue IOP to prevent decompensation, improve emotion regulation, challenge distortions.
--- NOTE | 2024-10-13 10:10 | BH.SGPN.GN ---
Behaviors/Verbalizations/Mental Status: [] Eye contact is good. Motor activity is appropriate. Appearance is casual. Speech is Appropriate. Mood is depressed. Affect is congruent. Thoughts are linear and logical. No evidence of psychosis. Client Response/Progress/Benefit: [] Pt receptive to session AEB listening attentively to others and taking notes. Pt attentive and contributed throughout psychoeducation on the cognitive triangle and maintenance cycles. Pt engaged during group discussion reviewing the impact of daily activities and behaviors in either reinforcing unhealthy maintenance cycles and depression or assisting in reducing symptoms (?down? vs ?up? activities). Pt participated during interactive discussion in which pts identified their own common up activities (shower, dancing, body movement, pets) and down activities (isolation, avoidance, sad music, not taking meds).Identified an up activities she can complete today which was go to the [employer] park. Appeared to benefit from increased awareness of current behaviors and impact these have on mental health. Will continue IOP to prevent decompensation, increase healthy coping, and improve functioning. Narrative Note: []
--- NOTE | 2024-10-18 09:00 | BH.SGPN.GN ---
Behaviors/Verbalizations/Mental Status: [] Client alert and oriented, casual appearance. Eye contact good. Motor activity appropriate. Speech within normal limits. Affect congruent, mood anxious. Thoughts linear, logical, no signs of hallucinations or delusions. Reviewed client's symptom tracker, no risk for suicidal ideation, plan, or intent. Client Response/Progress/Benefit: [] Client responded well to session AEB listening to others and sharing thoughts/feelings. Client reported mental positive was being able to use opposite action and remind herself of the benefits to get to group this morning. Additional win noted as taking steps to accomplish a small goal to clean things out of the garage over the weekend. Stressor identified as her ex-boyfriend coming over to help her move a mattress and explained this is the first time she is seeing him since the break-up. Did well to identify skills she can use to prepare for this such as grounding and self-care. Appeared to benefit from support from peers. Will continue IOP tx to reinforce healthy coping skills, challenge distortions, and prevent decompensation. Narrative Note: []
--- NOTE | 2024-10-18 10:05 | BH.SGPN.GN ---
Behaviors/Verbalizations/Mental Status: []Pt alert and oriented, casually dressed and groomed. Eye contact fair. Motor activity appropriate. Speech within normal limits. Affect constricted, mood anxious. Thoughts linear, logical, no signs of hallucinations or delusions Client Response/Progress/Benefit: [] Pt took notes and contributed to group discussions. Attentive during psychoeducation on growth mindset. Interactive group discussion on fixed mindset in which group verbalized their current fixed mindsets and how they affect their mental health. Pt shared common fixed mindset thoughts they have. Pt shared a personal fixed thought I'm not worth it.? Pt able to connect negative impact fixed thoughts have on functioning. Pt benefited from increased awareness of growth mindset and fixed thoughts and how fixed thoughts impact their mental health. Will continue IOP tx to promote mood stability, challenge distortions, and prevent decompensation.
--- NOTE | 2024-10-18 11:10 | BH.SGPN.GN ---
Behaviors/Verbalizations/Mental Status: []Pt alert and oriented, casually dressed and groomed. Eye contact good. Motor activity appropriate. Speech within normal limits. Affect congruent, mood content. Thoughts linear, logical, no signs of hallucinations or delusions. Client Response/Progress/Benefit: [] Pt was an active participant during activity and discussion. Pt did well to remain attentive and participate as group worked on identifying characteristics and benefits of adopting a growth mindset. Worked with fellow participants in reframing the example fixed thoughts into growth mindset thoughts. Pt worked on changing own fixed thought. Pt?s reframed thought was ?I am good enough and I?m good enough to engage with others.? Pt attentive during discussion about different strategies that can help with fostering a growth mindset. Pt appeared to benefit from challenging own thoughts and engaging in the activity. Pt will continue IOP tx to increase distress tolerance, improve self-care, and gain healthy coping skills. Narrative Note: []
--- NOTE | 2024-10-19 09:00 | BH.SGPN.GN ---
Behaviors/Verbalizations/Mental Status: []Pt alert and oriented, disheveled appearance. Eye contact good. Motor activity appropriate. Speech within normal limits. Affect congruent, mood calm. Thoughts linear, logical, no signs of hallucinations or delusions. Reviewed pt?s symptom tracker, no risk for suicidal ideation, plan, or intent 10/19/24. Client Response/Progress/Benefit: []Pt was an active participant in group discussions. Attentive. Able to identify mental health wins including getting a task done at home that she has been avoiding and seeing her ex-boyfriend yesterday. ?Pt's stressor today is ?my ex-boyfriend came over yesterday to help me with something, I guess that?s my stressor and win.? The group offered pt encouragement and emotional support which pt reported was helpful. Pt is feeling calm.? this morning. Pt receptive to feedback from peers. Benefited from group support, encouragement, and feedback. Progress noted. Will continue IOP tx to promote use of healthy coping skills, maintain sobriety, and increase healthy social supports. ?? Narrative Note: []
--- NOTE | 2024-10-19 10:15 | BH.SGPN.GN ---
Behaviors/Verbalizations/Mental Status: [] Client alert and oriented, casually dressed and groomed. Eye contact good. Motor activity appropriate. Speech within normal limits. Affect congruent, mood anxious and irritable. Thoughts linear, logical, no signs of hallucinations or delusions. Client Response/Progress/Benefit: [] Client responded well to session AEB contributing to discussion, taking notes, and listening attentively to others. Group discussed the benefits of managed anger and anger as a secondary emotion. Client participated in anger iceberg discussion. Group reported outward personal signs of anger as lashing out verbally, physical fights, destruction of property, self-harm, and self-sabotage. Group Identified underlying emotions that contribute to anger including being dismissed, rejection, assumptions, being lied too, and micromanaging. Appeared to benefit from increased knowledge of the underlying emotions that impact anger and increased self-awareness of the internal and external consequences of anger. Client will continue IOP program to stabilize mood, prevent decompensation, and increase healthy coping strategies. Narrative Note: []
--- NOTE | 2024-10-19 11:50 | BH.MDN_ITS ---
Multi-Disciplinary Note Note 30-min Individual: Time Started:: 11:32 Date: 10/19/24 Purpose of session/treatment goals addressed:: Purpose of this session was to address tx plan goal #1 obj #2 and goal #2 obj #1 Eye Contact:: Good Motor Activity:: Appropriate Appearance:: Casual Speech:: Appropriate Mood:: Anxious and Dysthymic Affect:: Congruent Thoughts:: Linear, Logical and No evidence of hallucinations/delusions noted Staff Interventions:: thought challenging, motivational interviewing, psychoeducation on: (use of dialects), CBT techniques and strengths perspective Client Response:: Pt responded well to session, open to meeting with therapist. Pt shared her ex-boyfriend came over to visit yesterday which was bittersweet. Shared that she would like to rekindle the relationship but does not want to ?get my hopes up?. Pt reports wanting to that she doesn?t want to get her hopes up and is trying to remind herself that he was just there to pick- up some things he left behind. Shared some anxiety that she will experience a dip in her mood if he does not continue to reach out. Receptive of thought challenging and reminding herself that one person does not have to dictate her mood. Shared that she does have plans to go swimming with her cousins this weekend and is trying to allow herself to look forward to it rather than assume the worst. Explained that in the past they have cancelled on her last minute and she is trying not to predict the future this time. Shared that she has done a lot of work on getting sober in the last 5 years and now feels ready to dive deeper into addressing her mental health struggles and make the healthy changes she knows she is capable of. Identified plans to reach out to her cousins to confirm their plans rather than wait and risk disappointment last minute. Risks/Concerns:: None noted. Pt denies SI, plan, or intent as of this date 10/19/24 Progress Toward Goals/Plan:: Some progress noted. Pt indicates some improvement in mood and does have insight that this may be associated with recent interaction with ex. Pt noted wanting to work on improving self-esteem and has been able to begin identifying her thought distortions. Open to working on reaching out to dentists to begin addressing physical health concerns that impact her self-confidence. Recommended continued IOP tx to improve distress tolerance and healthy boundaries, as well as prevent decompensation. Time Stopped:: 11:56
--- NOTE | 2024-10-21 09:05 | BH.SGPN.GN ---
Behaviors/Verbalizations/Mental Status: [] Eye contact is good. Motor activity is appropriate. Appearance is casual. Speech is Appropriate. Mood is anxious. Affect is congruent. Thoughts are linear and logical. No evidence of psychosis. Reviewed daily check in sheet and no reports of suicidal ideations or intent. Client Response/Progress/Benefit: [] ?Pt participated at times during the group discussion. Attentive. Daily symptom tracker notes 06/15 for anxiety. Pt states??? I worked through anxiety this morning?. Briefly elaborated on her triggers and intensity of the anxiety as well as skill used to minimize its impact. She is working on identifying purpose and meaning in her current life as well as her future. This was a therapy goal she had. She has identify several hobbies and possible careers which has increase hope. Progress noted. Benefited from group support, encouragement, and feedback. Will continue in IOP to prevent decompensation, increase healthy coping, and improve functioning. Narrative Note: []
--- NOTE | 2024-10-21 11:15 | BH.SGPN.GN ---
Behaviors/Verbalizations/Mental Status: []Pt alert and oriented, casually dressed and groomed. Eye contact good. Motor activity appropriate. Speech within normal limits. Affect congruent, mood content. Thoughts linear, logical, no signs of hallucinations or delusions. Client Response/Progress/Benefit: [] Pt responded well to session, engaged and contributing. Pt discussed with group things that contribute to mental wellness life. With peers, pt discussed things that would sabotage one's mental health wellness. Pt identified things pt personally does to sabotage as avoidance and pushing emotions down until exploding. Pt attentive during psychoeducation on ways to reduce self-sabotage and pt selected using dialectical thinking to help communicate needs?as the skill that could help pt reduce self-sabotaging behaviors. Pt appeared to benefit from learning skills and gaining awareness of self-sabotaging behaviors. Pt will continue IOP tx to prevent decompensation, improve distress tolerance skills, and combat negative self-talk. Narrative Note: []
--- NOTE | 2024-10-21 15:00 | BH.SGPN.GN ---
Behaviors/Verbalizations/Mental Status: [] Pt alert and oriented, casually dressed and groomed. Eye contact good. Motor activity appropriate. Speech within normal limits. Mood: anxious and irritable. Affect: congruent. Thoughts linear, logical, no signs of hallucinations or delusions. Client Response/Progress/Benefit: [] Pt was an active participate during group discussions. Attentive during psychoeducation on self-sabotage and its impact on mental health. Worked with peers to identify reasons individuals perform self-sabotage behaviors (fear of rejection, learned behavior, coping mechanism, fear of failure, insecurity, and feeling like they are not worthy). Pt identified the forms of self-sabotage that impact their mental health the most which included (isolation, perfectionism, lashing out, procrastination, poor communication and people-pleasing). Seemed to benefit from gaining awareness about the self-sabotage. Pt to continue IOP tx to prevent decompensation, stabilize mood, and increase healthy coping. Narrative Note: []
--- NOTE | 2024-10-25 09:02 | BH.SGPN.GN ---
Behaviors/Verbalizations/Mental Status: [] Client alert and oriented, casual appearance. Eye contact fair. Motor activity appropriate. Speech within normal limits. Affect congruent, mood anxious. Thoughts linear, logical, no signs of hallucinations or delusions. Reviewed client's symptom tracker, no risk for suicidal ideation, plan, or intent. Client Response/Progress/Benefit: [] Client responded well to session AEB listening to others and sharing thoughts/feelings. Client reported mental positive as initiating and hanging out with her cousins by biting them to go swimming. Client stated this and that being overly fun time because they were able to have no fights. Client reported she sees this event as a significant success in progress for her because typically she has not tried initiate any socialization and is proud of herself being able to sit with the uncomfortable. Client noted feeling anxious this morning. Client stated current stressor as feeling more physical symptoms internally which she noted to be frustrating. Appeared to benefit from support from peers. Will continue IOP tx to promote healthy coping, challenge distortions, and prevent decompensation. Narrative Note: []
--- NOTE | 2024-10-25 10:10 | BH.SGPN.GN ---
Behaviors/Verbalizations/Mental Status: []Pt alert and oriented, casually dressed and groomed. Eye contact good. Motor activity appropriate. Speech within normal limits. Mood is anxious. Affect is congruent. Thoughts linear, logical, no signs of hallucinations or delusions. Client Response/Progress/Benefit: [] Pt was an active?participant in group discussions and experiential activity. Worked with peers to identify benefits of healthy relationships which included; support, shared experiences, laughter, understanding, and perspective challenge. Group identified factors that lead to unhealthy relationships which included; not being a ?good space mentally,? trauma-bonding, poor communication, and manipulation/toxic behaviors. Pt reported not talking about things can lead to unhealthy relationships. Benefited from increased insight and awareness of benefits of healthy relationships and factors that contribute to unhealthy relationships. Will continue IOP to prevent decompensation, improve distress tolerance skills, and improve daily functioning. ? Narrative Note: []
--- NOTE | 2024-10-25 11:00 | BH.SGPN.GN ---
Behaviors/Verbalizations/Mental Status: [] Pt alert and oriented, casually dressed and groomed. Eye contact good. Motor activity appropriate. Speech within normal limits. Mood anxious and irritable. Affect congruent. Thoughts linear, logical, no signs of hallucinations or delusions. Client Response/Progress/Benefit: [] Pt responded well to session, engaged and taking notes throughout. Worked with group to connect components of the experiential activity with characteristics of healthy and unhealthy relationships. Attentive during psychoeducation about characteristics of healthy, unhealthy, and abusive relationships. Pt reported she has some healthy traits and she wants to work on ?communicating my concerns? Appeared to benefit from identifying current healthy relationship attributes. Pt to continue IOP tx to prevent decompensation, maintain safety, regulate emotions, and to improve functioning. Narrative Note: []
--- NOTE | 2024-10-26 09:02 | BH.MDN_ITS ---
Multi-Disciplinary Note Note 30-min Individual: Time Started:: 09:38 Date: 10/26/24 Purpose of session/treatment goals addressed:: Purpose of session was to address treatment plan goal #1 objectives #1 & #2. Eye Contact:: Good Motor Activity:: Appropriate Appearance:: Casual Speech:: Appropriate Mood:: Euthymic Affect:: Congruent Thoughts:: Linear, Logical and No evidence of hallucinations/delusions noted Staff Interventions:: thought challenging, motivational interviewing, psychoeducation on: (affirmational statements), CBT techniques and goal setting Client Response:: Pt responded well to session, open to meeting with therapist. Pt shared that ?today is a good day? and noted that she feels she is benefiting from the combination of group support, having something productive to do with her time, and begging to better regulate her emotions through more consistent application of coping skills. Pt provided an example of recently doing well to manage her emotions when her dog got loose earlier in the week. Described also doing well to not take her anger out on the [facility] for accidentally running over his runner in the yard. Pt went on to share that she and her ex have continued to hangout since he visited last week. Has not continued to avoid discussing expectations with him out of fear of being hurt or having different expectations. Pt does acknowledge that if she wants the relationship to grow in healthy ways, she will need to sit down and discuss each other?s boundaries and expectations. Explained that in the past her mental health and difficulties with emotion regulation became a problem within the relationship. Described wanting to continue to work on this, as well as her self-confidence, before further discussing the relationship. Open to discussion on working to give herself credit for where she is making progress, as well as continue to address negative self-talk. Reviewed with pt strategies for improving the effectiveness of affirmations and pt identified a goal to begin saying 2-3 affirmations daily. Risks/Concerns:: None noted. Pt denies SI, plan, or intent as of this date 10/26/24 Progress Toward Goals/Plan:: Progress noted. Pt reports improved ability to regulate her emotions when experiencing new or unexpected stressors. Additionally, shared doing well to incorporate distress tolerance skills of deep breathing, walking away, and asking herself will this still matter a week from now. Pt reports overall her mood and outlook for the future has improved. She is feeling more motivated and is doing better to more consistently complete her ADL's. Does continue to struggle with negative self-talk and emotional reasoning. Pt recommended continued IOP tx to promote mood stability, increase self-confidence, and prevent decompensation. Time Stopped:: 10:03
--- NOTE | 2024-10-26 09:05 | BH.SGPN.GN ---
Behaviors/Verbalizations/Mental Status: [] Eye contact is good. Motor activity is appropriate. Appearance is casual. Speech is Appropriate. Mood is anxious. Affect is congruent. Thoughts are linear and logical. No evidence of psychosis. Reviewed daily check in sheet and no reports of suicidal ideations. Client Response/Progress/Benefit: [] Pt participated at times during the group discussions. Attentive. Daily symptom tracker notes 2/5 for agitation and 1/5 for anxiety. Able to identify healthy habits and mental health wins. She remains engaged in daily small goals which has been very beneficial to her mental health. Utilized opposite-action and behavioral activation. ?One thing at a time?. Emotion for today is ?content?. Progress noted. Benefited from group support, encouragement, and feedback. Will continue in IOP to prevent decompensation, stabilize mood, and improve functioning. Narrative Note: []
--- NOTE | 2024-10-26 10:00 | BH.SGPN.GN ---
Behaviors/Verbalizations/Mental Status: []Eye contact is good. Motor activity is appropriate. Appearance is casual. Speech is Appropriate. Mood is content. Affect is congruent. Thoughts are linear and logical. No evidence of psychosis. Client Response/Progress/Benefit: [] Pt was an active participant in group discussions. Attentive during psychoeducation. Contributed during interactive discussions in which peers attempted to define crisis. Group identified crisis examples. Group also worked together to identify warning signs and unhealthy responses to crisis which included shutting down, isolation, avoidance, over-thinking, disordered eating, and self-harm. Pt identified top 3 warning signs as: racing thoughts, negative thinking, and lashing out. Benefited from increased understanding of crisis and awareness of personal responses to crisis. Pt will continue IOP tx to promote mood stability, reduce negative thinking patterns, and increase distress tolerance. Narrative Note: []
--- NOTE | 2024-10-26 11:10 | BH.SGPN.GN ---
Behaviors/Verbalizations/Mental Status: []Pt alert and oriented, appropriate grooming/appearance. Eye contact good. Motor activity appropriate. Speech within normal limits. Affect congruent, mood euthymic. Thoughts linear, logical, no signs of hallucinations or delusions. Client Response/Progress/Benefit: []Pt was an active participant in group discussions. Attentive during psychoeducation. In small group pt along with peers developed an active plan for their crisis warning signs. Pt identified three crisis warning signs as well as an action plan for each. One crisis warning sign was negative thought patterns. Pt identified strategies to help with this such as: Engaging in positive self talk, accomplishing at least 1 small daily goal, and remind herself this that will past. Benefited from increased awareness of crisis warning signs and by developing crisis intervention strategies. Will continue in IOP to improve distress tolerance, improve confidence, and prevent decompensation
--- NOTE | 2024-10-27 14:47 | BH.MTP_ITS ---
Treatment Plan Review Demographics Date of Admission:: 10/06/24 Date of Treatment Plan Review:: 12/28/24 Admitting Diagnoses:: Bipolar 1 Disorder, Hx of polysubstance abuse (4.5 years sober) Current Diagnoses:: Bipolar 1 Disorder, Hx of polysubstance abuse (4.5 years sober) Patient Status Patient's Response to Treatment:: Pt has responded well to session AEB consistently attending IOP and engaging in both individual and group therapy sessions. Pt does struggle with consistently completing homework provided which may be maintaining long-term stability. Pt contributes actively during group discussions, takes notes, appears to listen to others, and engages in group activities. Pt's overall DSM-5 scores have decreased since admission and she reports finding benefit from the coping skills so far. Pt has also been able to maintain sobriety from all substances except tobacco which is significant. Status of Current Problems and Symptoms: Pt's symptoms have decreased since [place], but pt reports that she has rekindled the relationship with her ex whose breakup led to IOP admission initially. Pt emotional stability may be impacted if this relationship begins to struggle. Pt reports that she is coping well so far, but discussing the relationship with her ex continues to be a stressor. Pt still has ongoing stressors with volunteering, finances, maintaining sobriety, and her family. Progress Problem #1: Problem Name:: Depression, mood stability. Status of Goals:: Objective 1- complete with ongoing work encouraged. Pt's DSM-5 scores for depression have decreased since admission. Pt reports using opposite action, remaining consistent with [place], talking to healthy supports, and thought challenging. She is better understanding her negative thinking patterns and more consistently using skills to challenge and replace these. Pt is gaining more awareness of her emotional urges and typical responses. This is helping pt pick different responses to improve emotional regulation. Team Recommendations:: Team recommends continued goals and objectives to reinforce skills and reduce symptoms. Team recommends pt continue working on combating distortions, using opposite action, and identifying if she wants to set boundaries with family. Problem #2: Problem Name:: Anxiety, low distress tolerance Status of Goals:: Complete with ongoing work encouraged. Pt's DSM-5 scores for anxiety have decreased since admission and pt reports improving ability to regulate her emotions. Pt reports using grounding, self-talk, walking away, and spending time with healthy supports. Pt is continuing to work on building distress tolerance skills and she has done well to use calming skills or opposite action to avoid lashing out. Team Recommendations:: Treatment team encourages pt to continue working on distress tolerance skills, verbalizing boundaries and setting boundaries, grounding skills, avoiding substances that make her emotional regulation worse, and practicing self-talk.
--- NOTE | 2024-10-28 09:05 | BH.SGPN.GN ---
Behaviors/Verbalizations/Mental Status: [] Eye contact is good. Motor activity is appropriate. Appearance is casual. Speech is Appropriate. Mood is depressed. Affect is congruent. Thoughts are linear and logical. No evidence of psychosis. Reviewed daily check in sheet and no reports of suicidal ideations or intent. Client Response/Progress/Benefit: [] Pt participated at times during the group discussions. Attentive. Able to identify healthy habits and mental health wins. Accomplishing tasks. Improved daily functioning. Improved emotion regulation. Progress noted. Benefited from group support, encouragement, and feedback. Will continue in IOP to maintain safety, prevent decompensation, and increase healthy coping. Narrative Note: []
--- NOTE | 2024-10-28 10:15 | BH.SGPN.GN ---
Behaviors/Verbalizations/Mental Status: []Pt alert and oriented, neatly dressed and groomed. Eye contact good. Motor activity appropriate. Speech within normal limits. Affect congruent, mood calm. Thoughts linear, logical, no signs of hallucinations or delusions. Client Response/Progress/Benefit: [] Pt participated during small group discussions. Attentive during psychoeducation about defense mechanisms. Showed engagement during small group discussions and helped group identify which defense mechanisms were maladaptive, adaptive, or ?somewhere in the jarrett.? Pt worked with small group on identifying how each defense mechanism can impact mental health and gave examples. Pt stated she has gained awareness of her use of humor, suppression, and displacement. Pt reported benefits from identifying examples of different defense mechanisms and normalizing why they are used. Seemed to benefit from gaining awareness about the different defense mechanisms. Pt to continue IOP tx to promote use of healthy coping skills, reduce avoidance, and reduce use of marijuana. Narrative Note: []
--- NOTE | 2024-10-28 11:07 | PCM.BH.PN ---
Intake Vital Signs 10/07/24 10:04 10/28/24 11:10 Height 5 ft 3 in 5 ft 3 in Intake Visit Reasons: Medication follow-up Allergies amoxicillin (Amoxicillin) Allergy (Verified 10/07/24 09:50) Hives propranolol HCl (From Inderal LA) Allergy (Verified 10/07/24 09:50) Hives Medications ?Medication ?Instructions ?Recorded ?Confirmed ?Type cholecalciferol (vitamin D3) 1,250 1,250 mcg PO QWEEK #20 caps 02/22/24 10/07/24 Rx mcg (50,000 unit) capsule omeprazole 20 mg tablet,delayed 20 mg PO QDAY PRN indigestion 06/08/24 10/07/24 History release lisinopril 10 mg tablet 10 mg PO DAILY #30 tabs 07/06/24 10/07/24 Rx lurasidone 20 mg tablet 20 mg PO QPM #30 tabs 10/07/24 Rx lamotrigine 150 mg tablet 150 mg PO QHS 30 days #30 tabs 10/28/24 10/07/24 Rx (Lamictal) HPI () History of Present Illness History provided by: patient Chief complaint: meltdowns HPI: Musa Cobb is a 29 year old female who presents today for follow up eval. Patient reports that she has been doing good actually. Has had less meltdowns in recent past. Feels like mood has been somewhat more stable since starting lurasidone. Is somewhat anxious as this pattern has been similar in the past before she started to decompensate. Has been able to eat with medication without significant difficulty. Denies any major side effects from medications to this point. Sleep has been largely good. Relationship with neighbor has been improved. Only taken lamorigine once per day. Denies any SI/HI or AVH. Review of systems () Constitutional Denies: fever(s), chills, change in weight or fatigue Eyes Denies: change in vision or blurry vision Ears, Nose, Mouth, Throat Denies: throat pain, neck pain or change in hearing Cardiovascular Denies: chest pain, palpitations or dyspnea Respiratory Denies: dyspnea, cough or wheezing Gastrointestinal Reports: abdominal pain and nausea; Denies: vomiting, diarrhea or constipation Genitourinary Denies: dysuria or urinary frequency Musculoskeletal Denies: back pain, neck pain, joint pain or muscle weakness Integumentary/Breast Denies: rash or new lesions Neurological Denies: headache(s), dizziness or confusion Endocrine Denies: fatigue or excessive sweating Hematologic/Lymphatic Denies: easy bruising or easy bleeding Allergic/Immunologic Denies: wheezing Exam Mental Status Exam- Psych () Appearance casually dressed and adequately groomed Attitude cooperative and friendly Activity/Motor Behavior MSE activity/motor behavior finding no adventitious movements Speech regular rate, regular volume and regular prosody Mood other (Better) Affect full range Thought Process logical, coherent and circumstantial Thought Content no delusions and no hallucinations Suicidal Ideation none Homicidal Ideation none Attention intact Concentration intact Sensorium/Orientation awake, alert and oriented x3 Memory/Cognition other (appropriate for stated age) Insight fair Judgement fair Assessment & Plan () Assessment & Plan (1) Bipolar I disorder: Plan: - Continue on IOP ? Continue lamotrigine as previously prescribed ? Continue Latuda 20 mg every day patient has been doing better with his medication so we will continue his previously prescribed - Patient was informed of the risk, benefits, and possible side effects of antipsychotics medications. Side effects of these medications can include but are not limited to orthostatic hypotension (low blood pressure), weight gain, metabolic side effects, extrapyramidal side effects, and tardive dyskinesia. If you notice any abnormal movements including involuntary movement of muscles of face, lips, torso or legs please contact the office immediately. (2) Polysubstance use disorder: Plan: - History of methamphetamine abuse however has been sober for 4.5 years Medications: Changed From lamotrigine 150 mg PO BID To lamotrigine 150 mg PO QHS 30 days 30 tabs 0RF Charges/Coding Multi Select Codes Behavior Health Behavior Health EST Pt E/M: 90978 Est Pt Level IV
--- NOTE | 2024-10-28 11:15 | BH.SGPN.GN ---
Behaviors/Verbalizations/Mental Status: []Pt alert and oriented, casually dressed and groomed. Eye contact good. Motor activity appropriate. Speech within normal limits. Affect congruent, mood content. Thoughts linear, logical, no signs of hallucinations or delusions. Client Response/Progress/Benefit: [] Pt responded well to session, participating in activity and small group discussion. Group reviewed the rest of the defense mechanisms and discussed how these are adaptive, maladaptive, or somewhere in the jarrett. Pt's defense mechanisms included humor and rationalization. Shared that these reinforce unhealthy coping mechanisms. Pt listened to field laborer teach different skills to help pt?s cope with or change their defense mechanisms. Pt appeared to benefit from gaining insight to the different defense mechanisms and learning coping skills. Shared wanting to begin practicing more awareness of when she is using these defense mechanisms. Pt will continue IOP tx to prevent decompensation, improve distress tolerance skills, and increase emotion regulation. Narrative Note: []
--- NOTE | 2024-11-01 09:00 | BH.SGPN.GN ---
Behaviors/Verbalizations/Mental Status: [] ?Eye contact is good. Motor activity is appropriate. Appearance is casual. Speech is Appropriate. Mood is content. Affect is congruent. Thoughts are linear and logical. No evidence of psychosis. Reviewed daily check in sheet and no reports of suicidal ideations or intent. Client Response/Progress/Benefit: [] ?Pt was an active participant in group discussions. Attentive. Did well to identify 2 mental health wins including accomplishing some cleaning and organizing already this morning. Noted a positive effect on her mood by already accomplishing a task this early in the day. Additional win noted as plans to move forward with pursuing photography and wanting to look into taking classes. Stressor noted as ongoing family conflict but pt shared trying to avoid it and walk away when able to. Responded well to group support. Progress noted. Benefited from group support, encouragement, and feedback. Will continue in IOP to prevent decompensation, promote mood stability, and increase distress tolerance. Narrative Note: []
--- NOTE | 2024-11-01 11:10 | BH.SGPN.GN ---
Behaviors/Verbalizations/Mental Status: []Eye contact is good. Motor activity is appropriate. Appearance is casual. Speech is Appropriate. Mood is euthymic. Affect is congruent. Thoughts are linear and logical. No evidence of psychosis. Client Response/Progress/Benefit: [] Pt was an attentive participant in group discussions and actively engaged during experiential activity, doing well to regulate their emotions throughout the activity and work with peers. Attentive during psychoeducation on the 4 A's (Avoid, adapt, alter, accept) of coping with stress. Shared that they would benefit most from practicing self-forgiveness and ?giving myself some fanny.? Was able to identify the connection between the experiential activity and utilization of stress management skills. Benefited from increased awareness of stress management strategies. Pt will continue IOP to improve daily functioning, reduce use of substances, and improve distress tolerance skills. Narrative Note: []
--- NOTE | 2024-11-01 14:53 | BH.MDN ---
Multi-Disciplinary Note Note 45-min Individual: Time Started:: 10:18 Date: 11/01/24 Purpose of session/treatment goals addressed:: Purpose session was to address goals 1 obj 1 and goal 2 from MTP. Eye Contact:: Good Motor Activity:: Appropriate Appearance:: Casual Speech:: Appropriate Mood:: Euthymic and Anxious Affect:: Congruent Thoughts:: Linear, Logical and No evidence of hallucinations/delusions noted Staff Interventions:: thought challenging, psychoeducation on: (assertive communication), CBT techniques and goal setting Client Response:: Client reported she is doing better compared to last week in regards to depression. Client noted she has been doing better with following through with her goals and remaining motivated to accomplish tasks. Described making progress on cleaning out the garage and taking items to the curb, which is something client had been avoiding. Additionally, noted that she used opposite action to follow through with contacting a dentist. Pt reports no one answered however and needs to try again but has been putting this off. Continues to avoid out of fear of being treated poorly but is doing well to challenge negative thoughts and use skills when making unwanted phone calls. Denies following through with goal to begin thinking and writing out her expectations and boundaries for her relationship, should she and her ex get back together. Pt noted that she has been ?just brinda going with it and seeing what happens?. Insight that having an honest conversation about the relationship would prevent unclear expectations and the potential for either of them to get hurt. Client believes that she struggles with effectively communicating her thoughts, often resulting in pt becoming frustrated and lashing out. Expressed a desire to work on ?being assertive not aggressive?, specifically when trying to communicate concerns with her mother or ex. Therapist reviewed characteristics of assertive vs. aggressive communication. Discussed with client strategies to improve use of assertive communication. Pt reports plans to practice tabling a conversation and using emotion regulation skills before returning to it. Risks/Concerns:: Client denies active suicidal ideation, plan, intention. Future oriented. Identifies children as protective factor. Progress Toward Goals/Plan:: Progress noted. Client reports improved use of deep breathing and asking for help. Working on using opposite action to reduce avoidance when anxious or unmotivated which client reports has helped improved follow through. Shared motivation to continue to pursue new things in life now that she has had a solid period of time sober and feels her mental health is in a better place than previous. Goal to look into trade school programs. Plan is for client to continue IOP to increase consistent utilization of healthy coping skills, challenge distortions, and prevent decompensation. Time Stopped:: 11:03
--- NOTE | 2024-11-02 09:05 | BH.SGPN.GN ---
Behaviors/Verbalizations/Mental Status: [] Eye contact is good. Motor activity is appropriate. Appearance is casual. Speech is Appropriate. Mood is euthymic. Affect is full. Thoughts are linear and logical. No evidence of psychosis. Reviewed daily check in sheet and no reports of suicidal ideations or intent. Client Response/Progress/Benefit: [] Pt participated when prompted. Attentive. Daily symptom tracker notes 2/5 for agitation. Able to identify mental health wins and healthy habits. Has felt motivated which has lead to accomplishing tasks. She attributes recent mental health progress to recent medication changes. She believes that the medications are helping with emotion regulation as she reports decreased emotional outbursts and urges to punch hit things as well as herself. Increase mood stability. Progress noted. Benefited from group support, encouragement, and feedback. Narrative Note: []
--- NOTE | 2024-11-02 10:10 | BH.SGPN.GN ---
Behaviors/Verbalizations/Mental Status: [] Eye contact is fair. Motor activity is appropriate. Appearance is casual. Speech is Appropriate. Mood is anxious. Affect is congruent. Thoughts are linear and logical. No evidence of psychosis. Client Response/Progress/Benefit: [] Pt responded well to session AEB actively participating throughout group. Pt was attentive throughout group activity discussing famous individuals and how they overcame failure to be successful. Pt helped group define fear of failure as well as how it can impact mental health and relationships. Participated in experiential activity and worked with group members to problem solve. Appeared to benefit from increased knowledge of what causes fear of failure and how it impacts people. Will continue IOP tx to prevent decompensation, challenge distortions, and promote healthy coping.
--- NOTE | 2024-11-02 11:10 | BH.SGPN.GN ---
Behaviors/Verbalizations/Mental Status: []Pt alert and oriented, neatly dressed and groomed. Eye contact good. Motor activity appropriate. Speech within normal limits. Affect congruent, mood euthymic. Thoughts linear, logical, no signs of hallucinations or delusions. Client Response/Progress/Benefit: [] Pt responded well to session, engaged in the experiential activity and attentive throughout group processing. Pt reported fear of failure has kept Pt from finding a career and standing up for herself. Pt completed fear of failure worksheet and was able to identify thoughts and behaviors that reinforce personal fear of failure including dwelling on past experiences and avoidance. Pt participated in small group discussion regarding strategies to overcome fear of failure. Identified wanting to work on utilizing accepting the ups and downs and asking for help when needed. Appeared to benefit from increased knowledge of strategies to combat fear of failure and gaining self-awareness. Pt will continue IOP tx to prevent decompensation, improve daily functioning, and increase distress tolerance skills. Narrative Note: []
--- NOTE | 2024-11-04 09:05 | BH.SGPN.GN ---
Behaviors/Verbalizations/Mental Status: [] Pt alert and oriented, neatly dressed and groomed. Eye contact good. Motor activity appropriate. Speech within normal limits. Affect congruent, mood euthymic. Thoughts linear, logical, no signs of hallucinations or delusions. Reviewed pt?s symptom tracker, no risk for suicidal ideation, plan, or intent 11/04/24. Client Response/Progress/Benefit: []Pt was an active participant in group discussions. Attentive. Able to identify mental health wins including going for a walk, using opposite action to not take a nap, and feeling depressed yesterday but not isolating. Pt's stressor today is ?I?m having car issues and everything is expensive.? The group offered pt encouragement and emotional support which pt reported was helpful. Pt is feeling involved.? this morning. Pt receptive to feedback from peers. Benefited from group support, encouragement, and feedback. Progress noted. Will continue IOP tx to promote use of healthy coping skills, reduce negative thinking patterns, and improve distress tolerance. Narrative Note: []
--- NOTE | 2024-11-04 10:15 | BH.SGPN.GN ---
Behaviors/Verbalizations/Mental Status: [] Client alert and oriented, casual appearance. Eye contact fair. Motor activity appropriate. Speech within normal limits. Affect congruent, mood anxious. Thoughts linear, logical, no signs of hallucinations or delusions. Client Response/Progress/Benefit: []Client responded well to session AEB listening attentively to peers, taking notes, and engaging in discussions. Client attentive to psychoeducation about different styles of decision making. Client engaged in discussion about internal and external influences that impact decision making. Group identified internal influences that impact decision making to include self-talk, anxiety, mood, and past experiences. Group identified external influences that impact decision making to include opinions from others, peer pressure, societal or cultural norms, and finances. Client seemed to benefit from increased awareness and understanding of different decision making styles. Plan is for client to continue IOP to challenge negative thoughts, improve confidence, and prevent decompensation.
--- NOTE | 2024-11-04 11:15 | BH.SGPN.GN ---
Behaviors/Verbalizations/Mental Status: []Pt alert and oriented, casually dressed and groomed. Eye contact good. Motor activity appropriate. Speech within normal limits. Affect congruent, mood content. Thoughts linear, logical, no signs of hallucinations or delusions. Client Response/Progress/Benefit: [] Pt took notes and contributed to group discussions and was an active participant in activity. Pt engaged in continued discussion on decision making styles and pros and cons of each. Pt actively participated in experiential activity in which the group was given a scenario and prompted to decide what they would do. Did well to actively reflect on the various factors influencing their identified decisions as well. Pt worked with group to then identify several strategies for improving healthy decision making skills. Pt shared wanting to work on improving ability to use mcclure mind and less emotional responses before making decisions. Pt appeared to benefit from learning about building healthy decision making processes. Will continue IOP tx to improve mood stability, increase distress tolerance, and prevent decompensation. ? Narrative Note: []
--- NOTE | 2024-11-08 09:05 | BH.SGPN.GN ---
Behaviors/Verbalizations/Mental Status: [] ?Eye contact is good. Motor activity is appropriate. Appearance is casual. Speech is Appropriate. Mood is content. Affect is congruent. Thoughts are linear and logical. No evidence of psychosis. Reviewed daily check in sheet and no reports of suicidal ideations or intent. Client Response/Progress/Benefit: [] ?Pt was an active participant in group discussions. Attentive. Did well to identify 2 mental health wins including managing to get here today despite not feeling well. Additional win noted as taking advantage of some free time after her counseling appointment was canceled last week. Described going to the park and playing with her camera. Pt explained that she is getting back into photography, which she reports has been enjoyable. Stressor noted as finances but has been taking steps to look into resources in the area. Progress noted. Benefited from group support, encouragement, and feedback. Will continue in IOP to prevent decompensation, promote mood stability, and increase healthy coping consistency. Narrative Note: []
--- NOTE | 2024-11-08 11:10 | BH.SGPN.GN ---
Behaviors/Verbalizations/Mental Status: []Pt alert and oriented, neatly dressed and groomed. Eye contact good. Motor activity appropriate. Speech within normal limits. Affect congruent, mood euthymic. Thoughts linear, logical, no signs of hallucinations or delusions. Client Response/Progress/Benefit: [] Client responded well to session AEB input and examples during group activity. Group discussed and practiced methods of reframing cognitive distortions. Client participated in identifying cognitive distortions when examples were provided. Client discussed in group the different strategies to overcome the distortions. Client identified connecting with positive affirmations as a strategy. Will continue tx to promote use of healthy coping skills and improve distress tolerance. Narrative Note: []
--- NOTE | 2024-11-08 11:59 | BH.MDN ---
Multi-Disciplinary Note Note 30-min Individual: Time Started:: 10: Date: 11/08/24 Purpose of session/treatment goals addressed:: Purpose of session was to review progress, address tx plan goal #1 obj #2, and begin discharge planning. Eye Contact:: Good Motor Activity:: Appropriate Appearance:: Casual Speech:: Appropriate Mood:: Dysthymic Affect:: Congruent Thoughts:: Linear, Logical and No evidence of hallucinations/delusions noted Staff Interventions:: thought challenging, psychoeducation on: (boundary setting skills and communication strategies), CBT techniques and strengths perspective Client Response:: Pt receptive of session, actively engaged throughout. Reports feeling a little ?blah? or ?off? today. Elaborated further that she is feeling somewhat ?spacey? and unsure of whether this is due to missing a dose of her medication on Thursday night or the start of her menstrual period. Pt reflected that she had been more irritable and easily tearful on Thursday as well. Reports that she has been struggling more in the week leading up to her period for the past few years. Worked with therapist to review self-care plans for the week leading up to her period and pt receptive of reaching out to program psychiatrist regarding whether she should make any medication adjustments that week to better manage sx as well. Pt went on to describe struggling with feeling like she can take up space in her house when her mother is also home. Described feelings of ?being in the way? or unable to do what she wants/needs to without feeling obligated to interact with her mother. Pt receptive of identifying thought distortions and challenging these, as well as identifying evidence against. Pt able to recognize that she contributes to and is an active member of the household. Shared not knowing how to establish a boundary of needing space or not wanting to talk when in the same general area as her mom. Described fears of being rude or hurting her feelings, stating ?setting boundaries doesn?t feel good?. Able to identify long-term benefits in doing so. Pt willing to work on mindful communication of ?needing a break or needing quiet? and worked with therapist to role play ways of communicating these needs. Risks/Concerns:: Client denies active suicidal ideation, plan, intention. Future oriented. Identifies children as protective factor. Progress Toward Goals/Plan:: Progress noted. Pt reports following through with goal amaya getting back into photography and has been doing well to walk away when feeling emotionally overwhelmed. Continues to take steps on using mcclure mind approaches rather than responding out of emotion. Does continue to struggle with effective communication when upset or stressed. Reports ongoing avoidance of calling the dentist as well. Reports plans to reach out to her insurance today. Recommended continued IOP tx to improve mood stability, increase self-confidence, and prevent decompensation. Time Stopped:: 11:01
--- NOTE | 2024-11-09 09:05 | BH.SGPN.GN ---
Behaviors/Verbalizations/Mental Status: [] Eye contact is good. Motor activity is appropriate. Appearance is casual. Speech is Appropriate. Mood is euthymic. Affect is full. Thoughts are linear and logical. No evidence of psychosis. Reviewed daily check in sheet and no reports of suicidal ideations or intent. Client Response/Progress/Benefit: [] Pt participated at times during the group discussions. Attentive. Daily symptom tracker notes 1 for depression, anxiety, and irritability. Struggling to find mental health wins or healthy habits. Endorses low energy, low motivation, and ?feeling tired? which she attributes to starting a new medication. Denies any significant emotional distress. Regression noted. Benefited from group support, encouragement, and feedback. Will continue in IOP to prevent decompensation, stabilize mood, and increase healthy coping. Narrative Note: []
--- NOTE | 2024-11-09 10:10 | BH.SGPN.GN ---
Behaviors/Verbalizations/Mental Status: [] Eye contact is good. Motor activity is appropriate. Appearance is casual. Speech is Appropriate. Mood is content. Affect is congruent. Thoughts are linear and logical. No evidence of psychosis. Client Response/Progress/Benefit: [] Client engaged participant at times during group session as evidenced by contributions during group discussions, appearing to listen to others, and taking notes. Client engaged in discussion about barriers that keep people from having difficult confrontations. Group identified potential reasons individuals avoid difficult conversations which included; feeling uncomfortable, reaction of others, fear, and avoiding conflict. Group also identified benefits to having crucial conversations. Pt identified things they do that impact their communication personalize and lash out. Client seemed to benefit from increased awareness and education about importance of having difficult conversations and recognizing the impact of avoiding such conversations. Client to continue IOP to prevent decompensation, increase healthy coping, and improve functioning. Narrative Note: []
== END 2024-11-10 23:59 ==
LOC: BHIOP 07:19
PROVIDERS: PCP Internal Medicine; Referring Provider Student in an Organized Health Care Education/Training Program; Visit Provider Student in an Organized Health Care Education/Training Program
DX: F31.9 Bipolar disorder, unspecified (principal); F15.11 Other stimulant abuse, in remission
CPT/HCPCS: H2012; H2020; S9480; 90832; 90834

== ENCOUNTER 2024-11-11 07:50 | Outpatient (RCR) | payer MEDICAID, SELFPAY ==
--- NOTE | 2024-11-11 09:05 | BH.SGPN.GN ---
Behaviors/Verbalizations/Mental Status: [] Eye contact is good. Motor activity is appropriate. Appearance is casual. Speech is Appropriate. Mood is euthymic. Affect is full. Thoughts are linear and logical. No evidence of psychosis. Reviewed daily check in sheet and no reports of suicidal ideations or intent. Client Response/Progress/Benefit: [] Pt participated when prompted. Attentive. Able to identify healthy habits and mental health wins. Feeling ?optimistic and energized? today. Shared that she used skills to ?work through? stress this AM. She is also trying ?new things? and ?stepping outside her comfort zone?. Overall has noticed that her ?breakdowns? are less intense and feels as if she has more control over her emotions. ?More calm?. Progress noted. Benefited from group support, encouragement, and feedback. Will continue in IOP to prevent decompensation, stabilize mood, and improve functioning. Narrative Note: []
--- NOTE | 2024-11-11 10:10 | BH.SGPN.GN ---
Behaviors/Verbalizations/Mental Status: [] Eye contact is fair. Motor activity is appropriate. Appearance is casual. Speech is Appropriate. Mood is anxious. Affect is congruent. Thoughts are linear and logical. No evidence of psychosis. Client Response/Progress/Benefit: [] Pt was engaged and participating throughout, providing input and taking notes. Attentive during psychoeducation on anxiety and cognitive triangle. Participated in an interactive discussion on defining anxiety and identifying cognitive and physiological symptoms of anxiety. The group discussed helpful vs harmful anxiety. Pt identified their physical/physiological signs of anxiety which includes: tense muscles, upset stomach, and headache. Benefited from increased awareness and insight on anxiety and its impact. Will continue in IOP to prevent decompensation, decrease anxious avoidance, and promote healthy coping.
--- NOTE | 2024-11-11 11:15 | BH.SGPN.GN ---
Behaviors/Verbalizations/Mental Status: [] Eye contact is good. Motor activity is appropriate. Appearance is casual. Speech is Appropriate. Mood is anxious and depressed. Affect is congruent. Thoughts are linear and logical. No evidence of psychosis. Client Response/Progress/Benefit: [] Pt participated at times during group discussions. Attentive AEB note taking and listening attentively to peers. Attentive during psychoeducation on mindfulness coping skills, body-based coping skills, and mind-based coping skills and their impact on reducing anxiety and improving overall mental health wellness. Group was able to identify self-soothing and mind-based coping skills which included: 5-senses, meditation, deep breathing,walking/exercise, music, engaging with others, opposite-action, and affirmations. Pt verbalized skill to make effort to use this week as being assertive with her needs. Pt will continue IOP to prevent decompensation, increase healthy coping, and improve functioning. Narrative Note: []
--- NOTE | 2024-11-15 09:00 | BH.SGPN.GN ---
Behaviors/Verbalizations/Mental Status: [] Pt alert and oriented, neatly dressed and groomed. Eye contact good. Motor activity appropriate. Speech within normal limits. Affect congruent, mood euthymic. Thoughts linear, logical, no signs of hallucinations or delusions. Reviewed pt?s symptom tracker, no risk for suicidal ideation, plan, or intent 11/15/24. Client Response/Progress/Benefit: []Pt was an active participant in group discussions. Attentive. Able to identify mental health wins including ?my car is finally getting fixed and my med change has helped a lot.? Pt's stressor today is ?this is my last week and I?m kind of sad about it.? The group offered pt encouragement and emotional support which pt reported was helpful. Pt is feeling excited and scared this morning. Pt receptive to feedback from peers. Progress noted. Benefited from group support, encouragement, and feedback. Will continue IOP tx to reinforce healthy coping skills and establish aftercare. Narrative Note: []
--- NOTE | 2024-11-15 10:00 | BH.SGPN.GN ---
Behaviors/Verbalizations/Mental Status: [] Eye contact is good. Motor activity is appropriate. Appearance is casual. Speech is Appropriate. Mood is euthymic. Affect is full. Thoughts are linear and logical. No evidence of psychosis. Client Response/Progress/Benefit: [] Pt responded well to session, attentive and engaged. Group participated in the discussion defining stigma as well as what stigma has kept pt's from doing in their lives. Pt stated mental health stigma has kept pt from putting myself out there. Pt worked with peers to begin discussion of what reinforces stigma, both socially and internally, and this was discussed further in the next group. Pt appeared to benefit from learning about the different types of stigma as well as gaining awareness of how stigma has personally impacted pt. Will continue in IOP to prevent decompensation, increase healthy coping, and improve functioning. Narrative Note: []
--- NOTE | 2024-11-15 11:10 | BH.SGPN.GN ---
Behaviors/Verbalizations/Mental Status: []Pt alert and oriented, casually dressed and groomed. Eye contact fair. Motor activity appropriate. Speech within normal limits. Affect congruent, mood anxious. Thoughts linear, logical, no signs of hallucinations or delusions. Client Response/Progress/Benefit: [] Pt engaged participant AEB participating in the activity, providing input during small group discussion, and listening attentively to others. Pt appeared to connect with discussion in the benefits of addressing mental health stigma which included: improved relationships, increased willingness to seek help, increased happiness, and improved confidence. Group brainstormed strategies to combat social and perceived stigma. Pt shared today's group helped her feel more normalized and her experience of mental health because it is more common than she expected. Appeared to benefit from increasing awareness of strategies to combat stigma. Pt is to continue IOP to decrease anxious avoidance, challenge distortions, and prevent decompensation.
--- NOTE | 2024-11-16 14:54 | BH.COMM ---
Communication Note Communication with Client Communication Note: Pt scheduled for IOP group and individual sessions on this date. Pt did not show or call to cancel. Pt later called in reporting mixing up the days and plans to attend Thursday for her last day.
--- NOTE | 2024-11-18 10:04 | BH.SGPN.GN ---
Behaviors/Verbalizations/Mental Status: [] Eye contact is good. Motor activity is appropriate. Appearance is casual. Speech is Appropriate. Mood is content. Affect is congruent. Thoughts are linear and logical. No evidence of psychosis. Client Response/Progress/Benefit: [] Pt engaged participant AEB listening to others, engaging in activity, and providing feedback throughout. Attentive during psychoeducation and provided insight into obstacles that impede mental wellness. Pt shared with group current mental health reality and desired mental health reality. Identified barriers to desired reality which included difficulties managing emotions, lack of communication, and poor boundaries. Benefited from taking look at current mental health state and obstacles for progress. Pt to d/c from IOP today and continue in outpatient setting to maintain gains and prevent decompensation. Narrative Note: []
--- NOTE | 2024-11-18 10:54 | PCM.BH.PN_ITS ---
Intake Vital Signs 10/28/24 11:10 Height 1.6 m Intake Allergies amoxicillin (Amoxicillin) Allergy (Verified 10/07/24 09:50) Hives propranolol HCl (From Inderal [place]) Allergy (Verified 10/07/24 09:50) Hives Medications ?Medication ?Instructions ?Recorded ?Confirmed ?Type cholecalciferol (vitamin D3) 1,250 1,250 mcg PO QWEEK #20 caps 02/22/24 10/07/24 Rx mcg (50,000 unit) capsule omeprazole 20 mg tablet,delayed 20 mg PO QDAY PRN tonie gestion 06/08/24 10/07/24 History release lisinopril 10 mg tablet 10 mg PO DAILY #30 tabs 03/10/0510/07/24 Rx lurasidone 20 mg tablet 20 mg PO QPM #30 tabs Rx lamotrigine 150 mg tablet 150 mg PO QHS 30 days #30 ta bs 10/28/24 10/07/24 Rx (Lamictal) HPI () Developmental History Developmental History: GENET is the [ ORDER]. The pt was born and raised in [ ]. Education level completed [ ]. Pt describes his/her childhood as [ ]. Visit Details Comments: Spent a total of [ ] minutes on the date of the service which included [ ].
--- NOTE | 2024-11-18 10:54 | PCM.BH.PN ---
Intake Vital Signs 10/28/24 11:10 11/18/24 10:54 Height 1.6 m 1.6 m Intake Visit Reasons: f/u bipolar 1 d/o Allergies amoxicillin (Amoxicillin) Allergy (Verified 10/07/24 09:50) Hives propranolol HCl (From Inderal [place]) Allergy (Verified 10/07/24 09:50) Hives Medications ?Medication ?Instructions ?Recorded ?Confirmed ?Type cholecalciferol (vitamin D3) 1,250 1,250 mcg PO QWEEK #20 caps 02/22/24 10/07/24 Rx mcg (50,000 unit) capsule omeprazole 20 mg tablet,delayed 20 mg PO QDAY PRN indigestion 06/08/24 10/07/24 History release lisinopril 10 mg tablet 10 mg PO DAILY #30 tabs 07/06/24 10/07/24 Rx lurasidone 20 mg tablet 20 mg PO QPM #30 tabs 10/07/24 Rx lamotrigine 150 mg tablet 150 mg PO QHS 30 days #30 tabs 10/28/24 10/07/24 Rx (Lamictal) HPI () History of Present Illness History provided by: patient Chief complaint: Follow-up bipolar 1 disorder HPI: -Current psychiatric medications: Lamictal 150 mg, Latuda 20 mg -SUBJECTVE: Feeling better than she was. Nervous about being done but will be doing aftercare. Does feel the Latuda is quite helpful. Sleeping better overall. Does reports some back pain and knee pain that sometimes impede her sleep, going to follow up with her PCP. No SI/No Hi, No VH. Does sometimes feel like she'll hear sounds that other people don't but this is chronic and there are no voices, reports that she thinks some of this may be from being in and out of custodial in her early 20s and always keeping an eye out for things. This has been present for a couple of years without any changes. Advised that she continue to monitor this moving forward, patient reports that this is not distressing to her Tolerating medications without side effects Exam Mental Status Exam- Psych () Appearance casually dressed, no apparent distress and other (Poor dentition) Attitude cooperative and calm Activity/Motor Behavior MSE activity/motor behavior finding no adventitious movements Speech regular rate and regular volume Mood euythmic Affect full range Thought Process linear and logical Thought Content no delusions and no hallucinations Suicidal Ideation none Homicidal Ideation none Attention intact Concentration intact Sensorium/Orientation awake and alert Memory/Cognition intact Insight fair Judgement fair Assessment & Plan () Assessment & Plan (1) Bipolar I disorder: Plan: Patient doing well on Lamictal and does feel Latuda has been helpful, will continue medications at current doses. Will send in refills to bridge her to outpatient appointment, she notes she will be following with Dr. Guerrero thinks her appointment is later this month. No SI or HI, today will be patient's last day in IOP and then she will begin aftercare. No new or acute complaints (2) Polysubstance use disorder: Plan: - History of methamphetamine abuse however has been sober for 4.5 years, continue to encourage sobriety Visit Details Comments: Spent a total of [ ] minutes on the date of the service which included [ ]. Charges/Coding Behavior Health Behavior Health EST Pt E/M: 84800 Est Pt Level IV
--- NOTE | 2024-11-18 11:00 | BH.SGPN.GN ---
Behaviors/Verbalizations/Mental Status: []Eye contact is good. Motor activity is appropriate. Appearance is casual. Speech is Appropriate. Mood is euthymic and anxious. Affect is congruent. Thoughts are linear and logical. No evidence of psychosis. Client Response/Progress/Benefit: [] Pt was an engaged participant in group discussion and activity. Worked with group to identify strategies to help overcome barriers and obstacles to desired reality. Group developed strategies for the common barriers. Identified personal barriers to desired reality and choose one obstacle to work on. Pt stated wanting to work on barrier of people pleasing by reminding herself that she is important too and she is allowed to say no. Pt seemed to benefit from increased repertoire of healthy coping skills/strategies to overcome common barriers to moving forward. Pt will discharge from IOP tx as pt has accomplished her tx goals and no longer meets criteria for IOP level of care. Narrative Note: []
--- NOTE | 2024-11-18 12:08 | BH.MDN_ITS ---
Multi-Disciplinary Note Note 30-min Individual: Time Started:: 09:10 Date: 11/18/24 Purpose of session/treatment goals addressed:: To address current stressors and discuss strategies to help cope with these stressors. Another goal was discussing discharge. Eye Contact:: Good Motor Activity:: Appropriate Appearance:: Casual Speech:: Appropriate Mood:: Euthymic and Anxious Affect:: Congruent Thoughts:: Linear, Logical and No evidence of hallucinations/delusions noted Staff Interventions:: CBT techniques, discharge planning and strengths perspective Client Response:: Pt responded well to session, open to meeting with therapist. Pt's last day of IOP and she reflected on the progress she has made while being in the program. Pt and therapist reviewed pt's DSM-5 scores and pt expressed feeling proud of herself. Pt noted that she feels more capable of ?letting myself take up space? and communicate her needs and boundaries with supports. Stated that she did not have any emotional outburst or ?breakdowns? since beginning the program and expressed pride in her ability to better self- regulate. Additional progress in managing her anxieties about calling the dentist and followed through on those goals as well. Pt has also gained skills in communication and conflict which helps pt and her mother interact better. Pt and therapist spent time reviewing pt's IOP binder and highlighting topics that pt can return to when she needs extra support or reminded of a coping skill. Pt will begin IOP aftercare next week and she plans to [facility] Pt will discharge from IOP today. Risks/Concerns:: Pt denies any suicidal ideation, plan, or intent. Pt denies any thoughts of . Progress Toward Goals/Plan:: Pt has responded well to treatment as evidenced by Pt consistently attending IOP sessions and her reduction of DSM-5 scores since admission. Pt was always attentive and receptive to learning during group and individual sessions. Pt applied coping skills outside of IOP consistently, reports overall her mood is improved, and she is functioning better than she was several months ago. Pt's overall symptom reduction is 34% since admission with anger reducing by 50% , depression decreasing by 33%, and anxiety decreasing by 29%. Pt has increased her ability to manage her stress, triggers, and negative thought patterns. Time Stopped:: 09:31
--- NOTE | 2024-11-18 13:03 | BH.DS_ITS ---
Discharge Summary Demographics Date of Admission:: 10/05/24 Discharge Date: 11/18/24 Presenting Problems at Admission:: Musa Cobb is a 29 year old female who was referred to [facility] tx by the ER following a recent visit for anxiety/panic/self-harm via hitting self. Patient admits to having been following with [facility] for prolonged period intermittently. For the past year has been having explosions and periods of irritability. Admits to having significant anxiety, specifically in social situations Discharge Diagnoses:: bipolar 1; Hx of polysubstance abuse Reason for Discharge:: Pt has accomplished her tx goals AEB her reduction of DMS-5 symptoms, her self-report of improved functioning and mood, and improved outlook. Pt no longer meets criteria for IOP level of care and will discharge to outpatient counseling. Treatment Progress During Treatment & Response: Pt has responded well to treatment as evidenced by Pt consistently attending IOP sessions and her reduction of DSM-5 scores since admission. Pt was always attentive and receptive to learning during group and individual sessions. Pt reports more actively applying coping skills outside of IOP and reports her mood is improved and she is functioning better than she was several months ago. Pt's overall symptom reduction is 34% since admission with anger reducing by 50% , depression decreasing by 33%, and anxiety decreasing by 29%. Pt has increased her ability to manage her stress, triggers, and negative thought patterns. Issues Still to be Addressed:: Managing her irritability symptoms, setting boundaries, self-compassion and self-love. Discharge Recommendations/Instructions:: Pt will follow up with [facility] for individual therapy. Pt sees Ivy once a week. Pt will begin IOP after care on 12/01/24. Pt requested to see Dr. Koroma for medication management and is scheduled for 12/08. Discharge Handout
== END 2024-11-18 12:35 | disposition home or self-care (01) ==
LOC: BHIOP 07:50
PROVIDERS: PCP Internal Medicine; Referring Provider Student in an Organized Health Care Education/Training Program; Visit Provider Student in an Organized Health Care Education/Training Program
DX: F31.9 Bipolar disorder, unspecified (principal); F15.11 Other stimulant abuse, in remission
CPT/HCPCS: H2012; H2020; S9480; 90832

== ENCOUNTER 2024-12-08 11:39 | Outpatient (RCR) | payer MEDICAID, SELFPAY ==
--- NOTE | 2024-12-08 14:00 | BH.COMM ---
Communication Note Communication with Client Communication Note: Patient completed IOP and presents today to start relapse prevention group which meets once weekly (1.5 hours) for 8 weeks. Case discussed with Dr. Koroma with plan to admit with dx of F31.9
--- NOTE | 2024-12-08 14:00 | BH.SGPN.GN ---
Behaviors/Verbalizations/Mental Status: []Pt alert and oriented, casually dressed and appropriately groomed. Eye contact good. Motor activity appropriate. Speech within normal limits. Affect congruent, mood euthymic. Thoughts linear, logical, no signs of hallucinations or delusions. Client Response/Progress/Benefit: []Client active participant in group session AEB providing contributions to group discussion and with intent to meet others. Client reported he has been following through with seeing her counselor and medication provider. Client stated overall since discharge from IOP she has been overall doing good with recovering from moments and that she feels more depressed or anxious. Client stated recently she self advocated for herself when others were placing doubt on a decision she was making. Client identified utilizing several different coping skills to help her regulate emotions and challenge thoughts. Client attentive to psychoeducation about gratitude and provided contributions throughout. Client created gratitude plan for the week. Client seemed to benefit from learning about gratitude and creating a week gratitude plan. Pt to continue IOP to promote utilization of healthy coping skills, challenge distortions, and prevent decompensation.
--- NOTE | 2024-12-08 16:11 | BH.MTP ---
Master Treatment Plan Patient Information Program Physician:: Dr. Ruffin and Dr. Koroma Primary Therapist:: Fely Shell [facility] Psychiatric Diagnoses Psychiatric Diagnoses:: bipolar 1; Hx of polysubstance abuse Estimated LOS Estimated LOS (in weeks):: 8 Problem/Goal #1 Problem/Goal #1 Stated Goal:: client will maintain or see a reduction in symptoms AEB client score on the DSM 5 cross-cutting measure and improve client's daily functioning. Objectives Objective #1: Stated Objective: Client will continue to consistently apply healthy coping skills to maintain progress made in IOP tx. Interventions: Through group therapy, client will review warning signs and triggers as well as healthy coping skills learned in IOP tx to successfully maintain gains while transitioning into outpatient therapy. Discharge Criteria: Client will have accomplished this goal when client's score on the DSM-5 cross-cutting measure has maintained or reduced over a 8 week period. Target Date: 02/02/25 Review Date: 01/05/25 Objective #2: Stated Objective: Client will learn and utilize 2-3 maintenance strategies to prevent decompensation from original IOP DSM-5 scores. Interventions: Through group therapy, client will be provided with education on healthy maintenance behaviors, relapse prevention techniques, and healthy coping strategies. Discharge Criteria: : Client will have accomplished this goal when can report using at least 2 maintenance skills to prevent decompensation compared to original IOP DSM-5 scores Target Date: 02/02/25 Review Date: 01/05/25
== END 2024-12-11 23:59 ==
LOC: BHOG 11:39
PROVIDERS: PCP Internal Medicine; Referring Provider Student in an Organized Health Care Education/Training Program; Visit Provider Student in an Organized Health Care Education/Training Program
DX: F31.9 Bipolar disorder, unspecified (principal)
CPT/HCPCS: 90853

== ENCOUNTER 2024-12-13 07:21 | Outpatient (RCR) | payer MEDICAID, SELFPAY ==
--- NOTE | 2024-12-15 14:00 | BH.SGPN.GN ---
Behaviors/Verbalizations/Mental Status: []Pt alert and oriented, casually dressed and groomed. Eye contact good. Motor activity appropriate. Speech within normal limits. Affect congruent, mood content. Thoughts linear, logical, no signs of hallucinations or delusions. Client Response/Progress/Benefit: []Pt responded well to session AEB sharing and listening attentively to others. Pt has scheduled outpatient mental health appointments for weekly counseling and regular med management. Pt reports using skills of opposite action, healthy distraction, and deep breathing to maintain mood stability. Pt participated in group discussion defining affirmations and why they are important. Pt provided insight throughout clinician?s presentation of tips for writing personal affirmations and wrote their own affirmations, including ?I am important? and ?I am allowed to have bad moments and am learning to manage them?. Pt appeared to benefit from increased knowledge of affirmation writing skills and creating their own affirmation statements to remind themselves of outside tx environment. Will continue aftercare tx to promote consistent mental health maintenance and prevent decompensation. Narrative Note: []
--- NOTE | 2024-12-22 14:00 | BH.SGPN.GN ---
Behaviors/Verbalizations/Mental Status: []Pt alert and oriented, casually dressed and groomed. Eye contact good. Motor activity appropriate. Speech within normal limits. Affect congruent, mood euthymic and anxious. Thoughts linear, logical, no signs of hallucinations or delusions. Client Response/Progress/Benefit: [] Pt receptive of session, engaged throughout. Pt has been following up with his outpatient providers. Pt has been taking medications consistently and reports utilizing healthy coping skills outside of aftercare. These skills included: opposite action, self-talk, and self-care. ?Receptive of discussion on sitting with the uncomfortable and emotional urges. Pt contributed to the discussion of distress tolerance and how building distress tolerance can help improve mood stability and resilience. Pt wants to keep building distress tolerance by ?making myself actually call the dentist.? Pt seemed to benefit from support from peers and increasing understanding of distress tolerance. Will continue aftercare to reinforce healthy coping skills and improve daily functioning. Narrative Note: []
--- NOTE | 2024-12-29 14:00 | BH.SGPN.GN ---
Behaviors/Verbalizations/Mental Status: []Client alert and oriented, casually dressed and groomed. Eye contact good. Motor activity appropriate. Speech within normal limits. Affect congruent, mood euthymic and stressed. Thoughts linear, logical, no signs of hallucinations or delusions. Client Response/Progress/Benefit: []Pt responded well to session AEB sharing and listening attentively to others. Pt reports following up with therapy and pt reports she is taking her medications consistently. Pt stated using sitting with discomfort, asking for help, deep breathing, self-care, and opposite action as primary coping skills used this past week. Pt participated in group discussion defining vulnerability, how and why we avoid it, and the benefits. Pt was an active participant and provided personal examples of being vulnerable and the positive things that came with this. Pt stated that pt would like to work on being vulnerable this week by painting her nails a bright color. Will continue aftercare treatment to reinforce healthy coping skills and promote gains. Narrative Note: []
--- NOTE | 2024-12-29 14:53 | BH.TPR ---
Treatment Plan Review Demographics Date of Admission:: 12/08/24 Date of Treatment Plan Review:: 12/29/24 Admitting Diagnoses:: bipolar 1; Hx of polysubstance abuse Current Diagnoses:: bipolar 1; Hx of polysubstance abuse Patient Status Patient's Response to Treatment:: Pt responding well to treatment AEB pt's consistent attendance, active engagement in group discussions, follow up with outpatient providers, and reporting use of skills outside treatment environment. Pt utilizes IOP aftercare to process current stressors, maintain healthy communication with supports, practice giving herself credit for daily accomplishments, continue to work on distress tolerance, and identify more adaptive coping strategies. Status of Current Problems and Symptoms: Ongoing stressors include maintaining progress made in IOP, stress maintaining boundaries and healthy communication with supports, managing her emotions, and continuing to improve her ability to be consistent with distress tolerance skill application. Pt self-reports she has moments of negative thinking, feeling ?overwhelmed with life?, and depression, but it is still manageable. Progress Problem #1: Problem Name:: Pt will maintain or decrease symptoms from IOP admission data. Status of Goals:: Obj 1 - complete with ongoing work encouraged- Pt has been able to maintain gains made in IOP as pt?s DSM-5 scores are 49% lower than they were at IOP admission. 33% decrease in depressive symptoms and 29% decrease in anxiety when compared to IOP admission scores. Obj 2 - complete with ongoing work encouraged. Pt has been consistently reporting self-care, thought challenging, boundary setting, journaling, and using healthy coping skills. She struggles at times with recognizing and challenging negative core beliefs; however, pt is continuing to make consistent strides in better challenging and replacing these thoughts. Team Recommendations:: Recommended client continue IOP aftercare group to show maintenance of progress. Will continue to encourage client to attend regular outpatient counseling and psychiatry appointments as well.
== END 2025-01-10 23:59 ==
LOC: BHOG 07:21
PROVIDERS: PCP Internal Medicine; Referring Provider Student in an Organized Health Care Education/Training Program; Visit Provider Student in an Organized Health Care Education/Training Program
DX: F31.9 Bipolar disorder, unspecified (principal); F19.21 Other psychoactive substance dependence, in remission
CPT/HCPCS: 90853

== ENCOUNTER 2025-01-11 08:01 | Outpatient (RCR) | payer MEDICAID, SELFPAY ==
--- NOTE | 2025-01-19 14:00 | BH.SGPN.GN ---
Behaviors/Verbalizations/Mental Status: []Pt alert and oriented, neatly dressed and groomed. Eye contact good. Motor activity appropriate. Speech within normal limits. Affect congruent, mood euthymic and anxious. Thoughts linear, logical, no signs of hallucinations or delusions. Client Response/Progress/Benefit: [] Pt took notes and contributed to group discussions. Pt reports she has been taking medications consistently and pt has been seeing her therapist. Pt identified coping skills she has been using which included: walking, deep breathing, giving herself credit, and practicing gratitude. Pt engaged in discussion on habits and how they are formed. Pt gave examples of how to build healthy habits and reported benefitting from habit stacking. Pt shared she wants to work on building the habit of putting her phone away at 8pm at night. Pt appeared to benefit from learning about building healthy habits and setting a habit goal. Will continue IOP tx to promote mood stability and use of healthy coping skills. Narrative Note: []
--- NOTE | 2025-02-02 14:45 | BH.DS ---
Discharge Summary Demographics Date of Admission:: 12/08/24 Discharge Date: 02/02/25 Presenting Problems at Admission:: At aftercare admission pt reporting significant improvement in daily functioning and decrease in anxiety and mood instability. Client could benefit from aftercare program to help with maintenance of skills and progress. Pt continues to report that the relationship with her boyfriend and mother as stressors, as well as maintaining sobriety, and finding social outlets. Discharge Diagnoses:: bipolar 1; Hx of polysubstance abuse Reason for Discharge:: Pt has accomplished tx goals AEB ability to maintain mood stability and gains made in IOP. Pt's DSM-5 scores remain 49% lower than her IOP admission scores. Pt will transition to traditional outpatient counseling. Treatment Progress During Treatment & Response: Pt responded well and made progress in IOP aftercare as evidenced by pt's participation in group discussions and self-report of consistently applying coping skills. Pt's overall DSM-5 scores decreased by 49% from IOP admission. Pt?s depression increased slightly since original IOP admission; however, pt reports this is likely due to not having as many stressors and struggling to find ways to occupy her time. Pt's scores for anxiety decreased by 57% compared to original IOP scores. Issues Still to be Addressed:: Client could benefit from continued reinforcement of healthy coping skills, reinforcement of maintenance plan, and continued work on boundary setting and distress tolerance skills. Discharge Recommendations/Instructions:: Client is established with an outpatient counselor at [facility] and psychiatrist, Dr. Koroma, from [facility]. Discharge Handout
== END 2025-02-03 07:25 | disposition home or self-care (01) ==
LOC: BHOG 08:01
PROVIDERS: PCP Internal Medicine; Referring Provider Student in an Organized Health Care Education/Training Program; Visit Provider Student in an Organized Health Care Education/Training Program
DX: F31.9 Bipolar disorder, unspecified (principal); F19.21 Other psychoactive substance dependence, in remission
CPT/HCPCS: 90853